=== PATIENT | male | born 1940 | race Caucasian/White ===

== ENCOUNTER → 2020-08-16 14:43 | Outpatient (BNVA) | payer OTHER, SELFPAY | PROVIDERS: Visit Provider Surgery | DX: Z01.812 Encounter for preprocedural laboratory examination (principal); Z11.52 Encounter for screening for COVID-19 | CPT/HCPCS: 87635 ==

== ENCOUNTER 2020-12-10 09:14 | Emergency (ER) | payer OTHER, SELFPAY ==
[2020-12-10 09:29] VITALS: BP 166/69; PULSE 77; RESP 15; TEMP 36.5; O2SAT 97; BMI 22.4
[2020-12-10 09:34] VITALS: O2SAT 97
--- NOTE | 2020-12-10 09:46 | W.ED.BACK ---
HPI - Back Pain/Injury General: Chief Complaint: Back Pain/Injury Stated Complaint: back pain Time Seen by Provider: 12/10/20 09:15 Source: patient Mode of arrival: ambulatory Limitations: no limitations History of Present Illness: HPI Narrative: Patient is a nice 80-year-old gentleman who presents to ED today with a complaint of lower back pain. Patient tells me pain initially started approximately 3 days ago. He has not had any known injury or trauma to his back. He states he had fairly significant back pain over the weekend. He states also over the weekend he felt very achy. He states when he went to dialysis yesterday they reported a fever of 100.8-101.0. He states today the body aches have improved and he is afebrile. He also states his back pain today is not as significant as it was over the weekend (rates at a 3/10). [facility] to rule out pyelonephritis, UTI, nephrolithiasis. Patient states pain does not radiate into his lower extremities. Pain is somewhat worse with movement. No chest pain, SOB, abdominal pain. Did have a few episodes of diarrhea over the weekend. MD elicited complaint: back pain Onset (ago): day(s) Timing: constant and improved Severity: mild Pain scale (0-10): 3 Location: lumbar spine Radiation: none Exacerbating factors: none Relieving factors: none Associated symptoms: Reports fever(s) (yesterday; none today); Deny abdominal pain, difficulty walking, dysuria, nausea, urinary urgency or vomiting Work related injury: No Review of Systems Const: Reports: fever(s) (yesterday; none today), body aches (improved from over the weekend) and malaise (improved from over the weekend); Denies: change in appetite or change in weight Eyes: Denies: change in vision, blurry vision, photophobia, floaters or seeing flashes ENMT: Denies: throat pain, odynophagia, nasal discharge or nasal congestion Card: Denies: chest pain or palpitations Resp: Denies: dyspnea, productive cough, non-productive cough or chest congestion GI: Reports: diarrhea (reports a few episodes 1-2 days ago); Denies: abdominal pain, nausea, vomiting or hematochezia : Denies: flank pain, difficulty urinating, dysuria, urinary frequency, urinary urgency or urinary hesitancy Musc: Reports: back pain; Denies: neck pain, extremity pain, extremity swelling, joint pain, joint swelling, joint stiffness or limited range of motion Skin/Breast: Denies: rash Neuro: Denies: headache(s), numbness in extremities, weakness in extremities, sensory changes or difficulty walking PFSH ED PFSH: Medical History (Updated 12/10/20 @ 12:59 by DELTA Gomez) Chronic gout ESRD (end stage renal disease) History of TIA (transient ischemic attack) Hyperlipidemia Hypertension Vitamin B12 deficiency (dietary) anemia Vitamin D deficiency Surgical History (Updated 10/08/20 @ 16:40 by Alex Arciniega MD) History of left knee surgery History of right knee surgery S/P hemodialysis catheter insertion Family History (Updated 10/08/20 @ 16:31 by SUMANTH Cha) Denies family history of Anesthesia complication Bleeding disorder Social History (Updated 10/08/20 @ 16:31 by SUMANTH Cha) Smoking and tobacco status: former smoker Alcohol intake: never Physical Exam Const: COMMON NORMALS: no acute distress, average body habitus, patient oriented x3, no limitations, healthy appearing, alert and well nourished HENMT: COMMON NORMALS: normocephalic and atraumatic HEAD & SCALP: normocephalic and atraumatic Resp: COMMON NORMALS: normal respiratory effort and clear to auscultation bilaterally AUSCULTATION: clear to auscultation bilaterally Cardio: COMMON NORMALS: regular rate and regular rhythm RATE: regular rate RHYTHM: regular rhythm GI: COMMON NORMALS: Normal to inspection, nondistended, normoactive bowel sounds present, Soft to palpation, non-tender, No hepatosplenomegaly present and no masses PALPATION: Yes Soft to palpation and Yes No hepatosplenomegaly present : COMMON NORMALS: Yes no CVA tenderness BLADDER/KIDNEY EXAM: Yes no CVA tenderness Back/Pelvis: COMMON NORMALS: no CVA tenderness BACK IMAGE (MALE): 1. pain across lower back; mildly reproduced by palpation; did not seem to have any midline bony tenderness Extremity: COMMON NORMALS: normal to inspection and full ROM GENERAL: Yes normal exam except as noted Neuro: ZAIDA COMA SCALE: document GCS findings [place] coma scale eye opening: Spontaneous Zaida coma scale verbal response: Orientated [place] coma scale motor response: Obey commands [place] coma scale total score: 15 COMMON NORMALS: patient oriented x3, CN's II-XII intact bilaterally, moves all extremities, no focal motor deficits, no sensory deficits noted and gait normal SENSORIUM/ORIENTATION: Yes alert Skin: COMMON NORMALS: no rashes or lesions noted GENERAL SKIN EXAM: no rashes or lesions noted Course Vital Signs: Vital signs: Vital Signs Temperature 97.7 F 12/10/20 09:29 Pulse Rate 59 L 12/10/20 10:10 Respiratory Rate 18 12/10/20 10:10 Blood Pressure 179/66 12/10/20 10:10 Pulse Oximetry 94 12/10/20 10:10 MDM - Back Pain/Injury MDM Narrative: Medical decision making narrative: Given patient's body aches, fever, and diarrhea over the weekend COVID-19 testing was obtained and patient was found to be positive. All of these symptoms are improving and clinically patient looks well. He has zero respiratory complaints. Vitals are normal today. CXR normal. He certainly has risk factors for this to progress so I spoke to him about BAM infusion today or we could get this scheduled for tomorrow/ but patient refuses this. Quarantine instructions were given. UA did look suspicious for infection with blood, 1+ leuks, 15-[address] imaging obtained which does shows bilateral perinephric stranding. Radiologist commented on some low and high attenuation lesions in his kidneys. I did speak to Dr. Barrett who stated these were not kidney abscesses not that clinically I had a concern for this as patient is non-ill and nontoxic appearing along with stable vital signs and no white count. Patient's BUN/Cr today was 28/4.0. [facility] which showed a BUN/Cr of 21/4.7 in 07/2020. Patient is receiving dialysis MWF. Discussed contacting them for their COVID patient protocols. Lab Data: Labs: Lab Results 12/10/20 12/10/20 12/10/20 Range/Units 09:55 10:05 10:05 WBC 5.4 (4.0-10.0) 10^3/ uL RBC 4.07 L (4.1-5.3) 10^6/u L Hgb 13.0 (11.7-16.6) g/dL Hct 41.0 L (42.0-52.0) % MCV 100.7 H (80-94) fL MCH 31.9 (28.0-34.0) pg MCHC 31.7 (30.0-36.0) g/dL RDW 15.1 (12.1-15.1) % Plt Count 165 (130-400) 10^3/c mm MPV 10.4 (7.4-10.4) fL Neut % (Auto) 53.4 % Lymph % (Auto) 27.4 % [place] % (Auto) 17.5 % Eos % (Auto) 0.6 % Baso % (Auto) 0.4 % Neut # (Auto) 2.90 (1.8-7.7) 10^3/u L Lymph # (Auto) 1.5 (0.8-4.8) 10^3/u L [place] # (Auto) 1.0 H (0.2-0.9) 10^3/u L Eos # (Auto) 0.0 (0.0-0.8) 10^3/u L Baso # (Auto) 0.0 (0.0-0.1) 10^3/u L Nucleated RBC % (a uto) 0 % Nucleated RBCs # 0.0 /100WBC Sodium 139 (136-145) mmol/L Potassium 3.6 (3.5-5.1) mmol/L Chloride 97 L (98-107) mmol/L Carbon Dioxide 29 (22-29) mmol/L Anion Gap 16.6 (5-19) BUN 28 H (8-23) mg/dL Creatinine 4.0 H (0.7-1.2) mg/dL GFR Calculation Not Reportable Glucose 80 (65-115) mg/dL Calculated Osmolal ity 292 (285-295) mOsm/k g Calcium 8.4 L (8.5-10.5) mg/dL Total Bilirubin 0.7 (0.15-1.2) mg/dL AST 23 (0-40) U/L ALT 14 (0-41) U/L Alkaline Phosphata se 181 H (40-130) IU/L Total Protein 7.7 (6.6-8.7) g/dL Albumin 4.3 (3.5-5.2) g/dL Globulin 3.4 (1.3-4.6) g/dL Urine Color Yellow (Yellow) Urine Appearance Cloudy (CLEAR) Urine pH 9 H (5-7) Ur Specific Gravit y 1.015 (1.005-1.030) Urine Protein 2+ H (Negative) Urine Glucose (UA) Norm (Normal) Urine Ketones Negative (Negative) Urine Blood 2+ H (Negative) Urine Nitrate Negative (Negative) Urine Bilirubin Neg (Negative) Prot Sulfosalicyli c Acd Positive (Negative) Urine Urobilinogen Norm (Negative) mg/dL Ur Leukocyte Cara ase 1+ H (Negative) Urine RBC 0-4 H (0-2) /hpf Urine WBC 15-25 H (0-5) /hpf Ur Squamous Epith Cells 0-4 H (0-5) /hpf Amorphous Sediment Not Reportable Urine Bacteria Trace (NONE) /hpf SARS-CoV-2 Ag (Rap id) (Negative) 12/10/20 Range/Units 10:30 WBC (4.0-10.0) 10^3/ uL RBC (4.1-5.3) 10^6/u L Hgb (11.7-16.6) g/dL Hct (42.0-52.0) % MCV (80-94) fL MCH (28.0-34.0) pg MCHC (30.0-36.0) g/dL RDW (12.1-15.1) % Plt Count (130-400) 10^3/c mm MPV (7.4-10.4) fL Neut % (Auto) % Lymph % (Auto) % [place] % (Auto) % Eos % (Auto) % Baso % (Auto) % Neut # (Auto) (1.8-7.7) 10^3/u L Lymph # (Auto) (0.8-4.8) 10^3/u L [place] # (Auto) (0.2-0.9) 10^3/u L Eos # (Auto) (0.0-0.8) 10^3/u L Baso # (Auto) (0.0-0.1) 10^3/u L Nucleated RBC % (a uto) % Nucleated RBCs # /100WBC Sodium (136-145) mmol/L Potassium (3.5-5.1) mmol/L Chloride (98-107) mmol/L Carbon Dioxide (22-29) mmol/L Anion Gap (5-19) BUN (8-23) mg/dL Creatinine (0.7-1.2) mg/dL GFR Calculation Glucose (65-115) mg/dL Calculated Osmolal ity (285-295) mOsm/k g Calcium (8.5-10.5) mg/dL Total Bilirubin (0.15-1.2) mg/dL AST (0-40) U/L ALT (0-41) U/L Alkaline Phosphata se (40-130) IU/L Total Protein (6.6-8.7) g/dL Albumin (3.5-5.2) g/dL Globulin (1.3-4.6) g/dL Urine Color (Yellow) Urine Appearance (CLEAR) Urine pH (5-7) Ur Specific Gravit y (1.005-1.030) Urine Protein (Negative) Urine Glucose (UA) (Normal) Urine Ketones (Negative) Urine Blood (Negative) Urine Nitrate (Negative) Urine Bilirubin (Negative) Prot Sulfosalicyli c Acd (Negative) Urine Urobilinogen (Negative) mg/dL Ur Leukocyte Cara ase (Negative) Urine RBC (0-2) /hpf Urine WBC (0-5) /hpf Ur Squamous Epith Cells (0-5) /hpf Amorphous Sediment Urine Bacteria (NONE) /hpf SARS-CoV-2 Ag (Rap id) Positive H (Negative) Imaging Data^: CXR: Radiologist's impression: [address] [id number] ReportSigned Patient: Ralph Patel #: [id number]: [id number]#:[id number]/Sex: 80 / MADM Date: 12/10/20Loc: ERRoom/Bed:Attending Dr: Ordering Provider/Ordering MD: Mandy Do Date of Service: 12/10/20 Procedure(s): XR chest 1V portable [id number] Accession Number(s): [id number] Report Number: [id number] PROCEDURE INFORMATION: Exam: XR Chest Exam date and time: 12/10/2020 11:23 AM Age: 80 years old Clinical indication: Condition or disease; Other: Covid TECHNIQUE: Imaging protocol: XR of the chest. Views: 1 view. COMPARISON: No relevant prior studies available. FINDINGS: Lungs: There is chronic fibrosis and multiple benign calcified granulomas in the right upper lobe. No acute infiltrates are seen. Pleural spaces: Unremarkable. No pleural effusion. No pneumothorax. Heart/Mediastinum: Heart is not enlarged. There is calcification of the aorta. Bones/joints: Unremarkable. XR/XR chest 1V portable [id number] IMPRESSION: Benign calcified granulomas disease. No acute abnormality. Dictated By:Janice Fajardo By:Janice Fajardo Date/Time:12/10/20 1226DD/ 122 CT Abd/Pel: Radiologist's impression: [address] [place] [address] CT Scan Report Signed Patient: Fermin Patel Unit #: [id number] : [id number] Age/Sex: 80 / M ADM Date: 12/10/20 Loc: ER Room/Bed: Attending Dr: Ordering Provider/Ordering MD: Mandy Do Date of Service: 12/10/20 Procedure(s): CT kidney stone 02099 Accession Number(s): [id number] Report Number: [id number] WS: [id number] CT ABDOMEN AND PELVIS NONCONTRAST HISTORY: lower back/flank pains TECHNIQUE: Imaging performed through the abdomen and pelvis. Coronal and sagittal reformats are submitted. All CT scans at [facility] use at least one of these dose optimization techniques: automated exposure control; mA and/or kV adjustment per patient size (includes targeted exams where dose is matched to clinical indication); or iterative reconstruction. DLP: 851.38 mGy.cm COMPARISON: None available. Lower thorax: Chronic emphysema at the bases. Mild cardiomegaly. Small hiatal hernia. Liver: Granulomata. Normal size liver. No bile duct dilatation. Gallbladder: Normal gallbladder. Pancreas: Normal size and attenuation. Normal pancreatic duct. No pancreatitis or mass. Spleen: Normal. Adrenal glands: Normal. No mass. Right kidney: Moderate atrophy of the RIGHT kidney with cortical thinning. Multiple low- attenuation, ill-defined masses within the renal cortex. Additional perinephric stranding. Additional nodule of increased density within the lower pole. No hydronephrosis. Left kidney: There are multiple hyperdense nodules and a few low-attenuation nodules throughout the kidney. These cannot be further characterized. Perinephric stranding with no hydronephrosis. Aorta: Severe calcified plaque within the aorta and mesenteric arteries. Heavy calcification continues into the LEFT iliac artery. There is complete occlusion of the lumen by calcification. Severe atherosclerosis of the internal and external iliac arteries. There is a bifemoral bypass graft. No free fluid, intraperitoneal air or significant lymphadenopathy. GI tract: Normal appendix. No GI tract obstruction. Numerous diverticula noted but no acute inflammation. A loop of sigmoid colon extends into the LEFT inguinal canal. This hernia is just medial to the femoral bypass graft. Abdominal wall: Small umbilical hernia contains fat only. Pelvis: Postoperative changes of bifemoral bypass graft. No free fluid in the pelvis. There is mild stranding in the fat surrounding the prostate gland. Osseous structures: Degenerative disc disease and facet arthritis. CT/CT kidney stone [id number] IMPRESSION: 1. No renal obstruction. 2. Mild bilateral perinephric stranding, correlate for possible urinary tract infection. 3. Mixture of low attenuation and high attenuation lesions within each kidney cannot be further characterized on noncontrast evaluation. 4. Moderate atrophy of the RIGHT kidney. 5. Severe atherosclerosis aorta and prior bifemoral bypass graft. 6. Sigmoid diverticulosis without acute diverticulitis. 7. Loop of colon extends into the LEFT inguinal region but there is no obstruction. Dictated By: Joyce Barrett DO Signed By: Joyce Barrett DO Signed Date/Time: 12/10/20 1230 DD/ 1220 Discharge Plan Discharge Patient Disposition: Home Clinical Impression: COVID-19, Acute pyelonephritis Chronic kidney disease Qualifiers: Chronic kidney disease stage: on chronic dialysis Qualified Code(s): N18.6 - End stage renal disease Condition: Stable Prescriptions: New cefdinir 300 mg capsule 300 mg PO BID 10 Days Qty: 20 RF: 0 No Action allopurinol 100 mg tablet 100 mg PO DAILY RF: 0 amlodipine 10 mg tablet 10 mg PO DAILY RF: 0 aspirin 81 mg tablet,delayed release (DR/EC) 81 mg PO DAILY RF: 0 atorvastatin 20 mg tablet 20 mg PO DAILY RF: 0 calcium acetate 667 mg tablet 667 mg PO TID RF: 0 carvedilol 12.5 mg tablet 12.5 mg PO BID RF: 0 cholecalciferol (vitamin D3) 25 mcg (1,000 unit) capsule 25 mcg PO DAILY RF: 0 B eooviun-N-lglcj acid-Zn Tablet PO RF: 0 sulfamethoxazole-trimethoprim 800-160 mg tablet 1 tab PO Q12H RF: 0 Discharge Orders: Discharge ED (Routine); Ordered 12/10/20 Ordered By: Mandy Do Patient Instructions: Opioid Safety Activity Restrictions/Additional Instructions: As we discussed you need to quarantine for 10 days starting out from symptom onset. You are cleared to return after 10 days if symptoms are improving and you are fever free. You need to return to the emergency department or contact your primary care provider for shortness of breath, difficulty breathing, chest pain, palpitations, uncontrollable fevers, generally feeling ill or unwell, or any other concerns you may have. As we discussed you need to continue your dialysis MWF. Please contact your company to receive instructions on their COVID protocols. I have offered you the monoclonal antibody IV infusion for treatment of COVID in hopes that this would prevent worsening symptoms however you have refused. You need to fill antibiotics and get started on them immediately. You need to return to the emergency department for worsening flank or back pain, fevers, repetitive episodes of vomiting, inability to hold down your antibiotics, or any other concerns you may have. Coding Level of Care Code ED Nurse Practitioner Manager for [facility] Exam Comprehensive
[2020-12-10 10:10] VITALS: BP 179/66; PULSE 59; RESP 18; O2SAT 94
[2020-12-10 10:13] LABS: Basophils % 0.4 %; Eosinophils % 0.6 %; Lymphocytes # 1.5 10^3/uL (0.8-4.8); Lymphocytes % 27.4 %; Mean Corpuscular HGB Conc 31.7 g/dL (30.0-36.0); Mean Corpuscular Hemoglobin 31.9 pg (28.0-34.0); Mean Corpuscular Volume 100.7 fL (80-94); Mean Platelet Volume 10.4 fL (7.4-10.4); Monocytes % 17.5 %; Neutrophils % 53.4 %; Nucleated Red Blood Cells % 0 %; Platelet Count 165 10^3/cmm (130-400); Red Blood Count 4.07 10^6/uL (4.1-5.3); Red Cell Distribution Width 15.1 % (12.1-15.1); White Blood Count 5.4 10^3/uL (4.0-10.0)
[2020-12-10 10:22] LABS: Add Urine Microscopic? YES; Bilirubin Urine Neg (Negative); Blood Urine 2+ (Negative); Glucose Urine UA Norm (Normal); Ketones Urine Negative (Negative); Leukocyte Esterase Urine 1+ (Negative); Nitrate Urine Negative (Negative); Protein Urine 2+ (Negative); RBC Urine 0-4 /hpf (0-2); Specific Gravity, Urine 1.015 (1.005-1.030); Sulfosalicylic Acid Urine Positive (Negative); Urine Appearance Cloudy (CLEAR); Urine Color Yellow (Yellow); Urobilinogen Urine Norm (Negative); pH Urine 9 (5-7)
[2020-12-10 10:23] LABS: Bacteria Urine TRACE /hpf; Squamous Epithelial Cell Urine 0-4 /hpf (0-5); WBC Urine 15-25 /hpf (0-5)
--- NOTE | 2020-12-10 10:25 | CT_ITS ---
WS: [id number] CT ABDOMEN AND PELVIS NONCONTRAST HISTORY: lower back/flank pains TECHNIQUE: Imaging performed through the abdomen and pelvis. Coronal and sagittal reformats are submi tted. All CT scans at [facility] use at least one of these dose optimization techniques: automated exposure control; mA and/or kV adjustment per patient size (includes targeted exams where d ose is matched to clinical indication); or iterative reconstruction. DLP: 851.38 mGy.cm COMPARISON: None available. Lower thorax: Chronic emphysema at the bases. Mild cardiomegaly. Small hiatal hernia. Liver: Granulomata. Normal size liver. No bile duct dilatation. Gallbladder: Normal gallbladder. Pancreas: Normal size and attenuation. Normal pancreatic duct. No pancreatitis or mass. Spleen: Normal. Adrenal glands: Normal. No mass. Right kidney: Moderate atrophy of the RIGHT kidney with cortical thinning. Multiple low-attenuation, ill-defined masses within the renal cortex. Additional perinephric stranding. Additional nodule of in creased density within the lower pole. No hydronephrosis. Left kidney: There are multiple hyperdense nodules and a few low-attenuation nodules throughout the k idney. These cannot be further characterized. Perinephric stranding with no hydronephrosis. Aorta: Severe calcified plaque within the aorta and mesenteric arteries. Heavy calcification continue s into the LEFT iliac artery. There is complete occlusion of the lumen by calcification. Severe ather osclerosis of the internal and external iliac arteries. There is a bifemoral bypass graft. No free fluid, intraperitoneal air or significant lymphadenopathy. GI tract: Normal appendix. No GI tract obstruction. Numerous diverticula noted but no acute inflammat ion. A loop of sigmoid colon extends into the LEFT inguinal canal. This hernia is just medial to the femoral bypass graft. Abdominal wall: Small umbilical hernia contains fat only. Pelvis: Postoperative changes of bifemoral bypass graft. No free fluid in the pelvis. There is mild s tranding in the fat surrounding the prostate gland. Osseous structures: Degenerative disc disease and facet arthritis. CT/CT kidney stone [id number] IMPRESSION: 1. No renal obstruction. 2. Mild bilateral perinephric stranding, correlate for possible urinary tract infection. 3. Mixture of low attenuation and high attenuation lesions within each kidney cannot be further characterized on noncontrast evaluation. 4. Moderate atrophy of the RIGHT kidney. 5. Severe atherosclerosis aorta and prior bifemoral bypass graft. 6. Sigmoid diverticulosis without acute diverticulitis. 7. Loop of colon extends into the LEFT inguinal region but there is no obstruc tion.
[2020-12-10 10:42] LABS: Alanine Aminotransferase 14 U/L (0-41); Albumin Level 4.3 g/dL (3.5-5.2); Alkaline Phosphatase 181 IU/L (40-130); Anion Gap 16.6 (5-19); Aspartate Amino Transferase 23 U/L (0-40); Blood Urea Nitrogen 28 mg/dL (8-23); Calcium 8.4 mg/dL (8.5-10.5); Carbon Dioxide 29 mmol/L (22-29); Chloride 97 mmol/L (98-107); Globulin 3.4 g/dL (1.3-4.6); Glucose 80 mg/dL (65-115); Osmolality Calculated 292 mOsm/kg (285-295); Potassium 3.6 mmol/L (3.5-5.1); Sodium 139 mmol/L (136-145); Total Bilirubin 0.7 mg/dL (0.15-1.2); Total Protein 7.7 g/dL (6.6-8.7)
[2020-12-10 11:03] LABS: SARS Covid-2 Antigen Positive (Negative)
--- NOTE | 2020-12-10 11:23 | XRR_ITS ---
PROCEDURE INFORMATION: Exam: XR Chest Exam date and time: 12/10/2020 11:23 AM Age: 80 years old Clinical indication: Condition or disease; Other: Covid TECHNIQUE: Imaging protocol: XR of the chest. Views: 1 view. COMPARISON: No relevant prior studies available. FINDINGS: Lungs: There is chronic fibrosis and multiple benign calcified granulomas in the right upper lobe. No acute infiltrates are seen. Pleural spaces: Unremarkable. No pleural effusion. No pneumothorax. Heart/Mediastinum: Heart is not enlarged. There is calcification of the aorta. Bones/joints: Unremarkable. XR/XR chest 1V portable [id number] IMPRESSION: Benign calcified granulomas disease. No acute abnormality.
[2020-12-10 13:05] VITALS: BP 181/85; PULSE 66; RESP 16; TEMP 36.6; O2SAT 99
[2020-12-10] MEDS: cefTRIAXone 1,000 MG in lidocaine 1% 2.1 ML 1 MG IM (13:08)
== END 2020-12-10 13:20 | disposition home or self-care (01) ==
PROVIDERS: Emergency Provider Physician Assistant
DX: U07.1 COVID-19 (principal); N10 Acute pyelonephritis; I12.0 Hypertensive chronic kidney disease with stage 5 chronic kidney disease or end stage renal disease; N18.6 End stage renal disease; E78.5 Hyperlipidemia, unspecified; Z86.73 Personal history of transient ischemic attack (TIA), and cerebral infarction without residual deficits; Z87.891 Personal history of nicotine dependence; Z79.82 Long term (current) use of aspirin
CPT/HCPCS: 36415; 71045; 74176; 80053; 81001; 85025; 87077; 87086; 87186; 87426; 96372; 99283; J0696

== ENCOUNTER 2022-05-09 18:19 | Inpatient (IN) | payer OTHER, SELFPAY ==
--- NOTE | 2022-05-09 18:41 | XRR_ITS ---
PROCEDURE INFORMATION: Exam: XR Chest Exam date and time: 05/09/2022 7:56 PM Age: 82 years old Clinical indication: Shortness of breath; Additional info: SOB TECHNIQUE: Imaging protocol: Radiologic exam of the chest. Views: 1 view. COMPARISON: CR XR chest 1V portable [id number] 12/10/2020 11:32 AM FINDINGS: Lungs: Vascular congestion. Interstitial opacities in the central and lower lung zones. Small airspace opacities in the peripheral left lung base. Stable chronic scarring with calcifications in the right upper lobe. Pleural spaces: Probable small pleural effusions. No pneumothorax. Heart/Mediastinum: The heart size is upper normal. Bones/joints: Unremarkable. XR/XR chest 1V portable [id number] IMPRESSION: 1. Mild congestive heart failure pattern. 2. Probable small pleural effusions.
[2022-05-09 18:46] VITALS: BP 149/85; PULSE 93; RESP 40; O2SAT 56
[2022-05-09] MEDS: ipratropium-albuterol 3 mL Neb INHALATION (18:48)
[2022-05-09 18:49] VITALS: PULSE 91; RESP 33; O2SAT 94
[2022-05-09 18:52] VITALS: PULSE 92; RESP 30; O2SAT 95
[2022-05-09 18:54] LABS: Basophils # 0.1 10^3/uL (0.0-0.1); Basophils % 0.4 %; Eosinophils % 0.1 %; Hematocrit 35.5 % (42.0-52.0); Hemoglobin 10.9 g/dL (11.7-16.6); Lymphocytes # 2.5 10^3/uL (0.8-4.8); Lymphocytes % 15.7 %; Mean Corpuscular HGB Conc 30.7 g/dL (30.0-36.0); Mean Corpuscular Volume 104.1 fl (80-94); Mean Platelet Volume 10.6 fL (7.4-10.4); Monocytes # 2.2 10^3/uL (0.2-0.9); Monocytes % 13.3 %; Neutrophils % 69.8 %; Nucleated Red Blood Cells % 0 %; Platelet Count 201 10^3/cmm (130-400); Red Blood Count 3.41 10^6/uL (4.1-5.3); White Blood Count 16.2 10^3/uL (4.0-10.0)
[2022-05-09] MEDS: magnesium sulfate premix 2 GM/50 ML PIGGYBACK IV (18:55)
[2022-05-09 18:59] LABS: ABG PCO2 50.7 mmHg (35-45); ABG PH Result 7.35 (7.35-7.45); Base Excess ABG 1.7 mmol/L (-2.0-2.0); Blood Gas Allen Test Pos; Blood Gas Operator Identificat glc; Blood Gas Sample Site Radial, right; Blood Gas Sample Type Arterial; Carboxyhemoglobin 1.9 %THgb (0.4-20.1); Methemoglobin 1.4 % (0.4-1.5); Oxygen Device NRB; Total Hemoglobin 11.1 g/dL (14-18)
[2022-05-09] MEDS: FUROsemide 10 mg/mL SDV 4mL 40 MG IVP (19:02)
[2022-05-09 19:04] LABS: INR 1.14 (0.8-1.2)
--- NOTE | 2022-05-09 19:09 | ECG_ITS ---
[facility] Test Date: 2022-05-09 Pat Name: Fermin Patel Department: Room: 101 Gender: Male Sales Assistant: : 1940 Requested By: Anthony Forrest Order Number: [id number] Moraima MD: Jovita Infante M.D. Measurements Intervals Anita Rate: 82 P: 30 NV: 200 QRS: 52 QRSD: 161 T: 25 QT: 426 QTc: 498 Interpretive Statements SINUS RHYTHM RIGHT BUNDLE BRANCH BLOCK [120+ ms QRS DURATION, UPRIGHT V1, 40+ ms S IN I/aVL/V4/V5/V6] INTERPRETATION BASED ON A DEFAULT AGE OF 40 YEARS No previous ECG available for comparison Electronically Signed On 05-11-2022 13:42:14 INSTRUMENT AND CONTROL TECHNICIAN by Jovita Infante M.D. [id number]
--- NOTE | 2022-05-09 19:12 | ED_ITS ---
HPI - SOB/Dyspnea General: Chief Complaint: Shortness of Breath/Dyspnea Stated Complaint: Weakness Time Seen by Provider: 05/09/22 18:36 History of Present Illness: HPI Narrative: 82-year-old male presents emergency department chief complaint of acute respirat ory distress. Patient is a dialysis patient and end-stage renal disease has dialysis earlier today he has had no recent weight gain in which he dialysis treatment was the full duration today patient presents with family due to progressive shortness of breath difficulty breathing is been getting worse the last several hours. The patient has no other prior history of atherosclerotic cardiovascular disease or other associated symptoms Associated symptoms: Deny abdominal pain, chest pain, extremity pain, fever(s), nausea, palpitations or vomiting Review of Systems General: Reports: 10 or more systems reviewed and unremarkable except in HPI and below Const: Denies: fever(s), chills, fatigue or malaise Eyes: Denies: change in vision or blurry vision Card: Denies: chest pain or palpitations Resp: Reports: dyspnea, productive cough, non-productive cough and wheezing GI: Denies: abdominal pain, nausea or vomiting : Denies: flank pain Musc: Denies: extremity pain or extremity swelling Skin/Breast: Denies: rash or pruritus Neuro: Denies: headache(s) Psych: Denies: anxiety or depression Jose/Lymph: Denies: easy bleeding All/Imm: Denies: urticaria, throat swelling or facial swelling PFSH ED PFSH: Medical History Chronic gout ESRD (end stage renal disease) History of TIA (transient ischemic attack) Hyperlipidemia Hypertension Vitamin B12 deficiency (dietary) anemia Vitamin D deficiency Surgical History History of left knee surgery History of right knee surgery S/P hemodialysis catheter insertion Family History Denies family history of Anesthesia complication Bleeding disorder Social History Smoking and tobacco status: former smoker Alcohol intake: never Physical Exam Const: OTHER: Patient appears to be in acute respiratory distress and very tachypneic diminished breath sounds appreciated bilaterally with moderate crackles and wheezing appreciated HENMT: COMMON NORMALS: normocephalic and atraumatic HEAD & SCALP: normocephalic and atraumatic Eye: COMMON NORMALS: Equal, round and reactive pupils present and EOMs intact bilaterally PUPIL: Yes Equal, round and reactive pupils present Neck/C-Spine: COMMON NORMALS: full ROM and supple Lymph: LYMPHATIC: no lymphadenopathy noted Chest: COMMONS NORMALS: normal inspection of the chest and normal palpation of entire chest wall Resp: OTHER: Currently on high flow oxygen greater than 15 L via nonrebreather patient is quite tachypneic with expiratory wheezing and crackles appreciated bilaterally with respiratory splinting and noted Cardio: OTHER: Sinus tachycardia rate in the 130s appreciated on exam GI: COMMON NORMALS: Normal to inspection, nondistended, normoactive bowel sounds present, Soft to palpation and non-tender INSPECTION: Yes normal to inspection PALPATION: Yes Soft to palpation : COMMON NORMALS: Yes no CVA tenderness BLADDER/KIDNEY EXAM: Yes no CVA tenderness Back/Pelvis: COMMON NORMALS: no CVA tenderness Extremity: COMMON NORMALS: normal to inspection and full ROM Neuro: COMMON NORMALS: CN's II-XII intact bilaterally, moves all extremities and no focal motor deficits Psych: COMMON NORMALS: mental status grossly normal, Normal thought process present, cooperative and normal affect THOUGHT PROCESS: Normal thought process present Skin: COMMON NORMALS: no rashes or lesions noted GENERAL SKIN EXAM: no rashes or lesions noted OTHER: Mild mottling appreciated the skin Course Vital Signs: Vital signs: Vital Signs Pulse Rate 92 05/09/22 18:52 Respiratory Rate 30 H 05/09/22 18:52 Blood Pressure 149/85 05/09/22 18:46 Pulse Oximetry 95 05/09/22 18:52 Oxygen Delivery Me thod 05/09/22 18:52 Oxygen Flow Rate 22 05/09/22 18:52 Fraction of Inspir ed Oxygen 50 05/09/22 18:49 MDM - SOB/Dyspnea Medical Decision Making Patient appears to be acute hypoxic respiratory failure possibly due to fluid overload versus pulmonary. Immediately patient was started on BiPAP ABG was obtained prior to this that revealed that he was slightly acidotic with a pH 7.350 PCO2 of 50 PO2 165 patient was ordered neb treatments as well as steroids as well as an additional Lasix. Unclear whether or not this is purely cardiac or combination of part cardiac and pulmonary cause. We will continue to follow. Patient does have elevated troponins as well as appear to be fluid overloaded discussed patient's case with Dr. Johnson has great acceptance to the stepdown unit patient is already off of his BiPAP currently on 2 L via nasal cannula. We will continue to follow. Lab Data 05/09/22 18:37 05/09/22 18:37 Labs/Radiology: Radiology Impressions Chest X-Ray 05/09/22 18:41 IMPRESSION: 1. Mild congestive heart failure pattern. 2. Probable small pleural effusions. Laboratory Results WBC 16.2 10^3/uL (4.0-10.0) H 05/09/22 18:37 RBC 3.41 10^6/uL (4.1-5.3) L 05/09/22 18:37 Hgb 10.9 g/dL (11.7-16.6) L 05/09/22 18:37 Hct 35.5 % (42.0-52.0) L 05/09/22 18:37 MCV 104.1 fl (80-94) H 05/09/22 18:37 MCH 32.0 pg (28.0-34.0) 05/09/22 18:37 MCHC 30.7 g/dL (30.0-36.0) 05/09/22 18:37 RDW 15.0 % (12.1-15.1) 05/09/22 18:37 Plt Count 201 10^3/cmm (130-400) 05/09/22 18:37 MPV 10.6 fL (7.4-10.4) H 05/09/22 18:37 Neut % (Auto) 69.8 % 05/09/22 18:37 Lymph % (Auto) 15.7 % 05/09/22 18:37 [place] % (Auto) 13.3 % 05/09/22 18:37 Eos % (Auto) 0.1 % 05/09/22 18:37 Baso % (Auto) 0.4 % 05/09/22 18:37 Neut # (Auto) 11.30 10^3/uL (1.8-7.7) H 05/09/22 18:37 Lymph # (Auto) 2.5 10^3/uL (0.8-4.8) 05/09/22 18:37 [place] # (Auto) 2.2 10^3/uL (0.2-0.9) H 05/09/22 18:37 Eos # (Auto) 0.0 10^3/uL (0.0-0.8) 05/09/22 18:37 Baso # (Auto) 0.1 10^3/uL (0.0-0.1) 05/09/22 18:37 Nucleated RBC % (auto) 0 % 05/09/22 18:37 Nucleated RBCs # 0.0 /100WBC 05/09/22 18:37 PT 14.90 SECONDS (12.1-14.9) 05/09/22 18:37 INR 1.14 (0.8-1.2) 05/09/22 18:37 Specimen Type Arterial 05/09/22 18:47 Sample Site Radial, right 05/09/22 18:47 ABG pH 7.35 (7.35-7.45) 05/09/22 18:47 ABG pCO2 50.7 mmHg (35-45) H 05/09/22 18:47 ABG pO2 165.0 mmHg (80.0-100.0) H 05/09/22 18:47 ABG HCO3 28.0 mmol/L (22-26) H 05/09/22 18:47 ABG Base Excess 1.7 mmol/L (-2.0-2.0) 05/09/22 18:47 Abisai Test Pos 05/09/22 18:47 Hematocrit 34.0 % (42-52) L 05/09/22 18:47 Hgb O2 Saturation 95.0 % (95-100) 05/09/22 18:47 Carboxyhemoglobin 1.9 %THgb (0.4-20.1) 05/09/22 18:47 Methemoglobin 1.4 % (0.4-1.5) 05/09/22 18:47 Total Hemoglobin 11.1 g/dL (14-18) L 05/09/22 18:47 O2 Delivery Device Nrb 05/09/22 18:47 O2 Liters/Min 20.0 % 05/09/22 18:47 FiO2 100.0 % 05/09/22 18:47 Video Camera Operator ID glc 05/09/22 18:47 Sodium 129 mmol/L (136-145) L 05/09/22 18:37 Potassium 3.8 mmol/L (3.5-5.1) 05/09/22 18:37 Chloride 87 mmol/L (98-107) L 05/09/22 18:37 Carbon Dioxide 27 mmol/L (22-29) 05/09/22 18:37 Anion Gap 18.8 (5-19) 05/09/22 18:37 BUN 17 mg/dL (8-23) 05/09/22 18:37 Creatinine 3.8 mg/dL (0.7-1.2) H 05/09/22 18:37 GFR Calculation Not Reportable 05/09/22 18:37 Glucose 145 mg/dL (65-115) H 05/09/22 18:37 Calculated Osmolality 272 mOsm/kg (285-295) L 05/09/22 18:37 Calcium 9.3 mg/dL (8.5-10.5) 05/09/22 18:37 Total Bilirubin 0.9 mg/dL (0.15-1.2) 05/09/22 18:37 AST 25 U/L (0-40) 05/09/22 18:37 ALT 10 U/L (0-41) 05/09/22 18:37 Alkaline Phosphatase 92 U/L (40-130) 05/09/22 18:37 Troponin T Baseline 91 ng/L (0-15) H 05/09/22 18:37 Troponin T 120 Minute 113.9 ng/L (0-15) H 05/09/22 20:42 Delta Troponin T 22.9 ABS# (0-10) H* 05/09/22 20:42 NT-Pro-B Natriuret Pep 65691 pg/mL (0-450) H 05/09/22 18:37 Total Protein 7.8 g/dL (6.6-8.7) 05/09/22 18:37 Albumin 4.5 g/dL (3.5-5.2) 05/09/22 18:37 Globulin 3.3 g/dL (1.3-4.6) 05/09/22 18:37 Nasal Influ A H1 2008 PCR Not detected (NOT DETECT) 05/09/22 20:15 Adenovirus (PCR) Not detected (NOT DETECT) 05/09/22 20:15 C. pneumoniae DNA (PCR) Not detected (NOT DETECT) 05/09/22 20:15 Coronavirus 229E (PCR) Not detected (NOT DETECT) 05/09/22 20:15 Human Metapneumovir PCR Not detected (NOT DETECT) 05/09/22 20:15 Influenza A (H1) PCR Not detected (NOT DETECT) 05/09/22 20:15 Influenza A (H3) PCR Not detected (NOT DETECT) 05/09/22 20:15 Influenza Type A (PCR) Not detected (NOT DETECT) 05/09/22 20:15 Influenza Type B (PCR) Not detected (NOT DETECT) 05/09/22 20:15 M. pneumoniae (PCR) Not detected (NOT DETECT) 05/09/22 20:15 Parainfluenza 1 (PCR) Not detected (NOT DETECT) 05/09/22 20:15 Parainfluenza 2 (PCR) Not detected (NOT DETECT) 05/09/22 20:15 Parainfluenza 3 (PCR) Not detected (NOT DETECT) 05/09/22 20:15 Parainfluenza 4 (PCR) Not detected (NOT DETECT) 05/09/22 20:15 RSV Type A (PCR) Not detected (NOT DETECT) 05/09/22 20:15 RSV Type B (PCR) Not detected (NOT DETECT) 05/09/22 20:15 Entero/Rhino (PCR) Not detected (NOT DETECT) 05/09/22 20:15 SARS-CoV-2 (PCR) Not detected (NOT DETECT) 05/09/22 20:15 ABG Data ABG Interpretation 1: ABG results: pH 7.350 PCO2 50.7 PO2 165 Discharge Plan Discharge Patient Disposition: Admitted As Inpatient Clinical Impression: Fluid overload, Respiratory failure, Elevated troponin Condition: Stable Coding Level of Care Code ED Artificial Insemination Technician for Chg Fwd Exam Comprehensive
[2022-05-09 19:14] LABS: Troponin(5th) Baseline 91 ng/L (0-15)
[2022-05-09 19:22] LABS: Alanine Aminotransferase 10 U/L (0-41); Albumin Level 4.5 g/dL (3.5-5.2); Alkaline Phosphatase 92 U/L (40-130); Anion Gap 18.8 (5-19); Aspartate Amino Transferase 25 U/L (0-40); Blood Urea Nitrogen 17 mg/dL (8-23); Calcium 9.3 mg/dL (8.5-10.5); Carbon Dioxide 27 mmol/L (22-29); Chloride 87 mmol/L (98-107); Globulin 3.3 g/dL (1.3-4.6); Glucose 145 mg/dL (65-115); Osmolality Calculated 272 mOsm/kg (285-295); Potassium 3.8 mmol/L (3.5-5.1); Sodium 129 mmol/L (136-145); Total Bilirubin 0.9 mg/dL (0.15-1.2); Total Protein 7.8 g/dL (6.6-8.7)
--- NOTE | 2022-05-09 20:42 | ECG_ITS ---
[facility] Test Date: 2022-05-09 Pat Name: Fermin Patel Department: Room: Gender: Male Time Study Observer: : 1940 Requested By: Anthony Forrest Order Number: [id number] Moraima MD: Jovita Infante M.D. Measurements Intervals [place] Rate: 68 P: 29 MS: 198 QRS: 25 QRSD: 162 T: 9 QT: 500 QTc: 532 Interpretive Statements SINUS RHYTHM RIGHT BUNDLE BRANCH BLOCK [120+ ms QRS DURATION, UPRIGHT V1, 40+ ms S IN I/aVL/V4/V5/V6] No previous ECG available for comparison Electronically Signed On 05-11-2022 14:55:21 ASSOCIATE PROFESSOR OF PSYCHOLOGY by Jovita Infante M.D. [id number]
[2022-05-09 21:27] LABS: Troponin 5 2HR 113.9 ng/L (0-15); Troponin 5 2HR Delta 22.9 ABS# (0-10)
[2022-05-09 22:11] LABS: Adenovirus Not Detected (NOT DETECT); Chlamydia Pneumoniae Not Detected (NOT DETECT); Coronavirus 229E,HKU1,NL63,OC4 Not Detected (NOT DETECT); Human Metapneumovirus Not Detected (NOT DETECT); Human Rhinovirus/Enterovirus Not Detected (NOT DETECT); Influenza A Not Detected (NOT DETECT); Influenza A H1 Not Detected (NOT DETECT); Influenza A H1-2009 Not Detected (NOT DETECT); Influenza A H3 Not Detected (NOT DETECT); Influenza B Not Detected (NOT DETECT); Mycoplasma Pneumoniae Not Detected (NOT DETECT); Parainfluenza Virus Type 1 Not Detected (NOT DETECT); Parainfluenza Virus Type 2 Not Detected (NOT DETECT); Parainfluenza Virus Type 3 Not Detected (NOT DETECT); Parainfluenza Virus Type 4 Not Detected (NOT DETECT); Respiratory Syncytial Virus A Not Detected (NOT DETECT); Respiratory Syncytial Virus B Not Detected (NOT DETECT); SARS-COV-2 Not Detected (NOT DETECT)
--- NOTE | 2022-05-09 23:02 | PM.HP ---
Providers/Chief Complaint Admitting Physician: Carrie Johnson MD Chief Complaint: Weakness History of Present Illness Fermin Patel is a 82 year old male with past medical history of chronic gout, end-stage renal disease on dialysis Wednesday, hyperlipidemia, hypertension, B12 deficiency, vitamin D deficiency presented to the hospital today with complaints of progressive shortness of breath. He says he has been recently ill with cough, sputum production and says he was being stubborn and not seeking medical attention. He went to dialysis today and he was told to go to the hospital but he still did not come in. His sister called him and brought him to the hospital. He is not on any oxygen at home. He has been having trouble breathing. Afebrile at home. No recent ill contacts. Shortness of breath has been worsening for the last few days. He has been taking his medications as directed. Did not bring his medication list with him today. His sister will bring him in tomorrow morning. Patient goes to [place] for his medical needs. Denies any recent weight gain. On arrival to ER patient was not respiratory distress. Blood pressure 149/55 heart respiratory 30, pulse 92, placed on nonrebreather. BiPAP was obtained which showed PCO2 of 50. Patient was given DuoNeb, Solu-Medrol 125 and placed on BiPAP. He was also given Lasix 40x1. He has not urinated since being in the ER however he states that he drinks a quart of water daily and he pees the same amount as well. When seen in the ER patient was already off the BiPAP and transition down to 4 L nasal cannula. He was appearing comfortable at this time and cracking jokes. Labs significant for white count 16.2, hemoglobin 10.9, sodium 129, chloride 87, creatinine 3.8, glucose 145, baseline troponin 91, 2-hour troponin 113 with delta of 22.9. BNP 65,000. Chest x-ray showed mild congestive heart failure pattern with probable small pleural effusions bilaterally. Goals of care discussion done in the room with presence of both of his sisters. He would like to be DNR/DNI. He stated if I am let me go . Both his sisters agree. Patient states he has already paid for his cremation in advance as well and has thought about this very thoroughly. Social history: Patient does have a strong smoking history however does not smoke anymore. Never been formally diagnosed with COPD however does have a chronic cough. Medications/Allergies Home Medications Medication Instructions Recorded Confirmed Last Taken Type B btsbuqg-T-sxfqi acid-Zn tablet tab PO 10/08/20 10/08/20 Unknown History allopurinol 100 mg tablet 100 mg PO DAILY 10/08/20 10/08/20 Unknown History amlodipine 10 mg tablet 10 mg PO DAILY 10/08/20 10/08/20 Unknown History aspirin 81 mg tablet,delayed 81 mg PO DAILY 10/08/20 10/08/20 Unknown History release atorvastatin 20 mg tablet 20 mg PO DAILY 10/08/20 10/08/20 Unknown History calcium acetate 667 mg tablet 667 mg PO TID 10/08/20 10/08/20 Unknown History carvedilol 12.5 mg tablet 12.5 mg PO BID 10/08/20 10/08/20 Unknown History cholecalciferol (vitamin D3) 25 25 mcg PO DAILY 10/08/20 10/08/20 Unknown History mcg (1,000 unit) capsule sulfamethoxazole 800 1 tab PO Q12H 10/08/20 10/08/20 Unknown History mg-trimethoprim 160 mg tablet Allergies Allergy/AdvReac Type Severity Reaction Status Date / Time No Known Allergies Allergy Unverified 10/08/20 16:27 PFSH Acute PFSH: Medical History (Updated 05/10/22 @ 02:17 by Carrie Johnson MD) Chronic gout ESRD (end stage renal disease) History of TIA (transient ischemic attack) Hyperlipidemia Hypertension Vitamin B12 deficiency (dietary) anemia Vitamin D deficiency Surgical History History of left knee surgery History of right knee surgery S/P hemodialysis catheter insertion Family History Denies family history of Anesthesia complication Bleeding disorder Social History Smoking and tobacco status: former smoker Alcohol intake: never Vitals/I&O/Wt Last Vital Signs Pulse 92 05/09/22 18:52 Resp 30 H 05/09/22 18:52 BP 149/85 05/09/22 18:46 Pulse Ox 95 05/09/22 18:52 O2 Del Method 05/09/22 18:52 O2 Flow Rate 22 05/09/22 18:52 FiO2 50 05/09/22 18:49 Physical Exam Narrative: General: Alert oriented x3, patient seen sitting up in bed cracking jokes on 4 L nasal cannula at this time. HEENT: Normocephalic, atraumatic, EOMI, breathing comfortably on nasal cannula. Cardio: Regular rate rhythm, normal S1-S2, Respiratory: Rhonchi bilaterally at bases GI: Abdomen soft, nontender, nondistended, bowel sounds + Behavior: Appropriate and cooperative Extremities:no edema, no cyanosis Data 05/09/22 18:37 05/09/22 18:37 A&P Assessment and plan (1) Fluid overload: (2) Respiratory failure: (3) Elevated troponin: (4) ESRD (end stage renal disease): (5) Hypertension: (6) Hyperlipidemia: (7) Shortness of breath: (8) Pleural effusion: Plan #Acute congestive heart failure #Possible COPD exacerbation #Recent upper respiratory illness #Progressively worsening shortness of breath, acute respiratory distress on admission #End-stage renal disease, dialysis dependent Wednesday #Hyponatremia most likely secondary to fluid overload #Elevated BNP 65,000 #Leukocytosis secondary to possible stress response versus underlying infection ? Check procalcitonin ? Solu-Medrol 40 IV twice daily, IV Levaquin daily ? Check cardiac echo ? Consult nephrology. ? Elevated troponin most likely secondary to type II OK/demand ischemia. Patient has not had any chest pain. ? Check sputum gram stain culture, hemoglobin A1c, procalcitonin, TSH ? Continue Norvasc, aspirin, allopurinol, ceftriaxone, azithromycin, Coreg ? Pneumonia not ruled out. Will cover empirically with ceftriaxone azithromycin. ? We will need to confirm patient's home medications from his pharmacy. Family may bring them in tomorrow morning. ? PT OT ? Check echo ? Check respiratory viral panel ? Check MRSA nares - Consider stress test and cardiology consult. 6 hour troponin is pending at this time. EKG did not show acute ischemic changes. DNR/DNI DVT prophylaxis: Heparin SQ twice daily Attestations Medical Necessity Statement*: Patient requires greater than 2 midnight stay for management of congestive heart failure exacerbation, hyponatremia. Coding Level of Care Code Acute Manager Of Exhibitions And Collections for Eloy Pike Diagnoses Fluid overload E87.70 Respiratory failure J96.90 Elevated troponin R77.8 ESRD (end stage renal disease) N18.6 Hypertension I10 Hyperlipidemia E78.5 Shortness of breath R06.02 Pleural effusion J90
[2022-05-10] VITALS (13 sets, daily range): BP systolic 170–195; BP diastolic 66–76; PULSE 56–77; RESP 16–18; TEMP 36.3–37.2; O2SAT 94–98
--- NOTE | 2022-05-10 00:42 | ECG_ITS ---
[facility] Test Date: 2022-05-10 Pat Name: Fermin Patel Department: Room: 101 Gender: Male Roll Reclaimer: : 1940 Requested By: Anthony Forrest Order Number: [id number] Moraima MD: Jovita Infante M.D. Measurements Intervals [place] Rate: 66 P: 53 IL: 212 QRS: 49 QRSD: 169 T: 37 QT: 491 QTc: 518 Interpretive Statements SINUS RHYTHM WITH FIRST DEGREE AV BLOCK RIGHT BUNDLE BRANCH BLOCK [120+ ms QRS DURATION, UPRIGHT V1, 40+ ms S IN I/aVL/V4/V5/V6] Compared to ECG 05/09/2022 20:47:57 First degree AV block now present Electronically Signed On 05-11-2022 15:01:19 NURSES SUPERINTENDENT by Jovita Infante M.D. [id number]
[2022-05-10] MEDS: heparin 5,000 unit/mL INJ 1 mL 5000 UNIT SUBCUT ×2 (01:01→12:47)
[2022-05-10] MEDS: cefTRIAXone 1,000 MG in sodium chloride 0.9% (plus) 50 ML 100 MG IV (01:02)
[2022-05-10] MEDS: azithromycin 500 MG in sodium chloride 0.9% 250 ML 250 MG IV (01:35)
[2022-05-10 01:54] LABS: Troponin 5 6HR 116.4 ng/L (0-15); Troponin 5 6HR Delta 25.4 ng/L (0-12)
[2022-05-10 02:01] LABS: Procalcitonin 9.66 ng/mL (0-0.5); Thyroid Stimulating Hormone 2.23 uIU/mL (0.27-4.20)
[2022-05-10 03:33] LABS: Iron 16 ug/dL (59-158); Percent Saturation 9.1 % (20-50); Total Iron Binding Capacity 175 mcg/dl; Unsaturated Iron Binding 159 ug/dL (112-347)
[2022-05-10 03:47] LABS: Ferritin 2307 ng/mL (30-400)
[2022-05-10 04:08] LABS: Folate Level > 20.0 ng/mL (4.5-32.2)
--- NOTE | 2022-05-10 06:33 | P.CONIM_ITS ---
Providers/Reason For Consult Consulting Physician/Specialty*: Martha Jenkins DO, telenephrology Reason for Consult*: ESRD, pulmonary edema Requesting Physician: Carrie Johnson MD Attending Physician: Carrie Johnson MD History of Present Illness History of Present Illness Fermin Patel is a 82 year old male presented to ER after dialysis for evaluation and treatment of dyspnea. has had cough. Review of Systems Const: Reports: fatigue Resp: Reports: dyspnea and productive cough Medications/Allergies Home Medications Medication Instructions Recorded Confirmed Last Taken Type B tkvvblb-M-syfpe acid-Zn tablet tab PO 10/08/20 10/08/20 Unknown History allopurinol 100 mg tablet 100 mg PO DAILY 10/08/20 10/08/20 Unknown History amlodipine 10 mg tablet 10 mg PO DAILY 10/08/20 10/08/20 Unknown History aspirin 81 mg tablet,delayed 81 mg PO DAILY 10/08/20 10/08/20 Unknown History release atorvastatin 20 mg tablet 20 mg PO DAILY 10/08/20 10/08/20 Unknown History calcium acetate 667 mg tablet 667 mg PO TID 10/08/20 10/08/20 Unknown History carvedilol 12.5 mg tablet 12.5 mg PO BID 10/08/20 10/08/20 Unknown History cholecalciferol (vitamin D3) 25 25 mcg PO DAILY 10/08/20 10/08/20 Unknown History mcg (1,000 unit) capsule sulfamethoxazole 800 1 tab PO Q12H 10/08/20 10/08/20 Unknown History mg-trimethoprim 160 mg tablet Allergies Allergy/AdvReac Type Severity Reaction Status Date / Time No Known Allergies Allergy Unverified 10/08/20 16:27 Current Medications Generic Name Dose Route Start Last Admin Trade Name Freq PRN Reason Stop Dose Admin Heparin Sodium (Porcine) 5,000 unit 05/10/22 00:30 05/10/22 01:01 Heparin 5,000 Unit/Ml Inj 1 Ml SUBCUT 5,000 unit Q12H GUMARO Administration Azithromycin 500 mg/ Sodium 250 mls @ 250 mls/hr 05/10/22 00:30 05/10/22 02:40 Chloride IV Infused Q24H GUMARO Infusion Protocol Ceftriaxone Sodium 1,000 mg/ 50 mls @ 100 mls/hr 05/10/22 01:00 05/10/22 01:32 Sodium Chloride IV Infused Q24H GUMARO Infusion Protocol PFSH Acute PFSH: Medical History Chronic gout ESRD (end stage renal disease) History of TIA (transient ischemic attack) Hyperlipidemia Hypertension Vitamin B12 deficiency (dietary) anemia Vitamin D deficiency Surgical History History of left knee surgery History of right knee surgery S/P hemodialysis catheter insertion Family History Denies family history of Anesthesia complication Bleeding disorder Social History Smoking and tobacco status: former smoker Alcohol intake: never Vitals/I&O/Wt Last Vital Signs Temp 97.9 F 05/10/22 04:00 Pulse 61 05/10/22 06:00 Resp 18 05/10/22 04:00 BP 173/66 05/10/22 04:00 Pulse Ox 95 05/10/22 04:00 O2 Del Method 05/10/22 04:00 O2 Flow Rate 4 05/10/22 04:00 FiO2 50 05/09/22 18:49 05/09/22 05/09/22 05/10/22 14:59 22:59 06:59 Intake Total 50 / 50 300 / 350 Balance 50 / 50 300 / 350 Physical Exam Const: COMMON NORMALS: no acute distress and alert Extremity: NARRATIVE EXTREMITY EXAM: LUE AVF + thrill per RN OTHER: no edema Neuro: SENSORIUM/ORIENTATION: Yes alert Data 05/09/22 18:37 05/09/22 18:37 Other Labs: proBNP 66,000 CXR: Radiologist's impression: Lungs: Vascular congestion. Interstitial opacities in the central and lower lung zones. Small airspace opacities in the peripheral left lung base. Stable chronic scarring with calcifications in the right upper lobe. Pleural spaces: Probable small pleural effusions. No pneumothorax. Heart/Mediastinum: The heart size is upper normal. Bones/joints: Unremarkable. ABG Interpretation 1: 05/09/22 18:47 ABG pH 7.35 ABG pCO2 50.7 H ABG pO2 165.0 H ABG HCO3 28.0 H ABG Base Excess 1.7 My Interpretation: primary respiratory acidosis and metabolic alkalosis Other data: seen via telemedicine with assistance of RN at bedside. verbal consent obtained A&P Assessment and plan (1) ESRD (end stage renal disease): Plan 1. ESRD 2. Volume overload 3. Bronchitis 4. Hypervolemic hyponatremia 5. Hypertension Plan: isolated UF today, 2.5L over 3h as BP tolerates. No IVs, BPS, blood draws LUE Consult Attestations Medical Necessity Statement: see above Time Spent in Patient Care: 16 - 35 minutes Coding Level of Care Code Acute Operations Supervisor for Eloy Pike Diagnoses ESRD (end stage renal disease) N18.6
[2022-05-10 07:45] LABS: Hepatitis B Surface Antigen Non-Reactive (Nonreactive); Hepatitis C Virus Antibody Non-Reactive (Nonreactive)
[2022-05-10 08:08] LABS: Estmated Average Glucose 68
[2022-05-10] MEDS: calcium acetate 667 mg Capsule PO ×2 (09:01→21:24)
[2022-05-10] MEDS: carvedilol 12.5 mg Tablet PO ×2 (09:01→17:16)
[2022-05-10] MEDS: aspirin 81 mg EC Tablet PO (09:01)
[2022-05-10] MEDS: allopurinol 100 mg Tablet PO (09:01)
[2022-05-10] MEDS: atorvastatin 40 mg Tablet 20 MG PO (09:01)
[2022-05-10] MEDS: cyanocobalamin 1,000 mcg Tablet 1000 MCG PO (09:02)
--- NOTE | 2022-05-10 12:28 | USCV_ITS ---
Fermin Patel Age: 82 Gender: M : 1940 Exam Date: 05/10/2022 16:36 Ordering Phys: Louise Finch MD Technologist: Sánchez Curry Exam Location: [facility] – [place] Indication: nstemi BP: 199 / 66 HR: 58 Rhythm: Sinus Technical Quality: Adequate MEASUREMENTS (Male / Female) Normal Values 2D ECHO LV Diastolic Diameter PLAX 5.5 cm 4.2 - 5.9 / 3.9 - 5.3 cm LV Systolic Diameter PLAX 3.5 cm IVS Diastolic Thickness 1.0 cm 0.6 - 1.0 / 0.6 - 0.9 cm IVS Systolic Thickness 1.3 cm LVPW Diastolic Thickness 1.4 cm 0.6 - 1.0 / 0.6 - 0.9 cm LVPW Systolic Thickness 1.5 cm LVOT Diameter 2.0 cm LV Ejection Fraction 2D Teich 65.0 % LV Ejection Fraction MOD 2C 83.7 % LV Ejection Fraction 2C AL 83.4 % LA Diameter 4.3 cm Aorta at Sinotubular Diameter 2.7 cm IVC Diameter 1.5 cm M-MODE Aortic Annulus Diameter 3.4 cm LA Ao Ratio MM 1.4 MV E Point Septal Separation 1.2 cm DOPPLER AV Peak Velocity 235.0 cm/s LVOT Peak Velocity 108.7 cm/s AV Area Cont Eq vti 1.4 cm squared AV Area Cont Eq pk 1.5 cm squared MV Area PHT 5.0 cm squared Mitral E to A Ratio 1.5 MV E' Velocity 54.5 cm/s Mitral E to MV E' Ratio 13.0 Mitral E to LV E' Lateral Ratio 11.2 Mitral E to LV E' Septal Ratio 15.4 TR Peak Velocity 230.5 cm/s TR Peak Gradient 21.3 mmHg TV Peak E Velocity 79.0 cm/s FINDINGS Left Ventricle Normal left ventricular size and systolic function, EF 76 %. Mild left ventricular hypertrophy. Grade III/IV diastolic dysfunction (restrictive filling pattern), severely elevated filling pressures. No regional wall motion abnormalities. Right Ventricle The right ventricle is normal in size and function. Right Atrium The right atrium is normal in size. Left Atrium The left atrium is normal in size. Mitral Valve Thickened mitral valve. Mild mitral valve regurgitation. Aortic Valve Moderate aortic valve calcification. Mild aortic valve regurgitation. Mild aortic valve stenosis with valve area 1.5 cm squared Tricuspid Valve Trace tricuspid valve regurgitation. Estimated pulmonary peak systolic pressure was 43 mmHg Pulmonic Valve Trace pulmonary valve regurgitation. Pericardium Normal pericardium without effusion. Aorta Normal ascending aorta dimension. IVC The inferior vena cava appears normal. CONCLUSIONS Normal left ventricular size and systolic function, EF 76 %. Mild left ventricular hypertrophy. Grade III/IV diastolic dysfunction (restrictive filling pattern), severely elevated filling pressures. No significant wall motion abnormalities Thickened mitral valve. Mild mitral valve regurgitation. Moderate aortic valve calcification. Mild aortic valve regurgitation. Mild aortic valve stenosis with valve area 1.5 cm squared. Mild pulmonary hypertension.Estimated pulmonary peak systolic pressure was 43 mmHg Trace pulmonary valve regurgitation. There is no pericardial effusion. No similar previous studies are available for comparison Dr Jovita Infante MD FAC (Electronically Signed) Final Date: 11 May 2022 08:50 S
[2022-05-10] MEDS: heparin, porcine 1,000 unit/mL INJ 10 mL 1000 UNIT IV (12:47)
[2022-05-10] MEDS: NIFEdipine ER (24 hr) 30 mg Tablet 90 MG PO (16:27)
--- NOTE | 2022-05-10 17:10 | P.PN_ITS ---
Subjective Subjective: Overnight labs and H&P reviewed. Underwent hemodialysis uneventfully. Feels improved after dialysis. Blood pressure ranging systolic 180s. Medications: Reviewed: Yes Vitals/I&O/Wt Last Vital Signs Temp 98 F 05/10/22 15:42 Pulse 56 L 05/10/22 15:42 Resp 18 05/10/22 15:42 BP 182/76 05/10/22 15:42 Pulse Ox 98 05/10/22 15:42 O2 Del Method 05/10/22 15:42 O2 Flow Rate 3 05/10/22 07:54 FiO2 50 05/09/22 18:49 05/10/22 05/10/22 05/10/22 06:59 14:59 22:59 Intake Total 300 / 350 320 / 320 Balance 300 / 350 320 / 320 Weight last 48 hrs Weight 76.204 kg Physical Exam Narrative: General: No acute distress, AO x3 HEENT: PERRLA, pupils bilaterally equal and reactive, pallors not present Chest: Normal vesicular breath sounds, no added sounds, equal good air entry bilaterally CVS: S1-S2 regular, no murmurs, no tachycardia, no gallops, no rubs Abdomen: Soft, nontender, no organomegaly, bowel sounds present Neuro: No focal deficits, no facial deformity, AO x3, power 5/5 in all limbs Data 05/09/22 18:37 05/09/22 18:37 Micro: Microbiology 05/10/22 13:47 Blood Culture - Preliminary Blood SPECIMEN COLLECTED 05/10/22 13:40 Blood Culture - Preliminary Blood SPECIMEN COLLECTED A&P Assessment and plan (1) Fluid overload: Patient presenting with respiratory distress and signs of volume overload. Status post hemodialysis today which she tolerated well. (2) Respiratory failure: Acute hypoxic respiratory failure which appears to be multifactorial. Chest x-ray shows bilateral vascular congestion. Symptoms may be related to pulmonary edema, however patient does have some leukocytosis therefore additional evaluation is currently ongoing for infectious sources, possibly atypical pneumonia. He has been started on treatment with ceftriaxone and azithromycin while undergoing further evaluation. Blood culture taken today after initiation of antibiotics. Negative respiratory viral panel. (3) Elevated troponin: Likely as a result of type II PR, demand supply mismatch. Suspect that this is elevated in the setting of overall volume overload. Patient denies any chest pain. No acute ST-T wave changes on EKG. May need stress test., However will await echocardiogram first. (4) ESRD (end stage renal disease): (5) Hypertension: Resume home dose of nifedipine and carvedilol. (6) Hyperlipidemia: (7) Shortness of breath: (8) Pleural effusion: Plan DNR/DNI DVT prophylaxis: Heparin SQ twice daily Attestations Medical Necessity Statement*: Needs continued admission, hemodialysis today, leukocytosis, source evaluation, IV antibiotics. Coding Level of Care Code Acute Design Engineering Specialist for [facility] Angied Diagnoses Fluid overload E87.70 Respiratory failure J96.90 Elevated troponin R77.8 ESRD (end stage renal disease) N18.6 Hypertension I10 Hyperlipidemia E78.5 Shortness of breath R06.02 Pleural effusion J90
--- NOTE | 2022-05-10 20:52 | P.PN_ITS ---
Subjective Subjective: NO NEW COMPLAINTS Medications: Reviewed: Yes Vitals/I&O/Wt Last Vital Signs Temp 98.9 F 05/10/22 20:00 Pulse 63 05/10/22 20:47 Resp 16 05/10/22 20:00 BP 195/72 05/10/22 20:00 Pulse Ox 96 05/10/22 20:47 O2 Del Method 05/10/22 20:47 O2 Flow Rate 2 05/10/22 20:47 FiO2 50 05/09/22 18:49 05/10/22 05/10/22 05/10/22 06:59 14:59 22:59 Intake Total 300 / 350 320 / 320 Balance 300 / 350 320 / 320 Weight last 48 hrs Weight 76.204 kg Physical Exam Narrative: General: No acute distress, AO x3 HEENT: PERRLA, pupils bilaterally equal and reactive, pallors not present Chest: Normal vesicular breath sounds, no added sounds, equal good air entry bilaterally CVS: S1-S2 regular, no murmurs, no tachycardia, no gallops, no rubs Abdomen: Soft, nontender, no organomegaly, bowel sounds present Data 05/09/22 18:37 05/09/22 18:37 Micro: Microbiology 05/10/22 13:47 Blood Culture - Preliminary Blood SPECIMEN COLLECTED 05/10/22 13:40 Blood Culture - Preliminary Blood SPECIMEN COLLECTED A&P Assessment and plan (1) ESRD (end stage renal disease): 1. ESRD: s/p UF today , will continue TTS schedule 2. Volume overload : HD as above 3. Ac Bronchitis 4. Hypervolemic hyponatremia 5. Hypertension: BP controlled , continue current meds Attestations Medical Necessity Statement*: Needs continued admission, hemodialysis today, leukocytosis, source evaluation, IV antibiotics. Coding Level of Care Code Acute Material Hauler for Chg Fwd Diagnoses ESRD (end stage renal disease) N18.6
[2022-05-10 21:58] LABS: Urine Appearance Clear (CLEAR); Urine Color Yellow (Yellow)
[2022-05-10 21:59] LABS: Add Urine Microscopic? YES; Bilirubin Urine Neg (Negative); Blood Urine 2+ (Negative); Glucose Urine UA Norm (Normal); Ketones Urine Negative (Negative); Leukocyte Esterase Urine Negative (Negative); Nitrate Urine Negative (Negative); Protein Urine 3+ (Negative); Urobilinogen Urine Neg (Negative); pH Urine 8 (5-7)
[2022-05-10 22:00] LABS: Add Urine Culture? No; WBC Urine 0-4 /hpf (0-5)
[2022-05-11] VITALS (12 sets, daily range): BP systolic 139–167; BP diastolic 54–68; PULSE 52–77; RESP 13–18; TEMP 36.3–36.7; O2SAT 88–97
[2022-05-11] MEDS: heparin 5,000 unit/mL INJ 1 mL 5000 UNIT SUBCUT ×2 (01:01→13:42)
[2022-05-11] MEDS: cefTRIAXone 1,000 MG in sodium chloride 0.9% (plus) 50 ML 50 MG IV (01:01)
[2022-05-11] MEDS: azithromycin 500 MG in sodium chloride 0.9% 250 ML 250 MG IV (02:35)
[2022-05-11 04:48] LABS: Basophils % 0.1 %; Hematocrit 31.2 % (42.0-52.0); Lymphocytes % 8.1 %; Mean Corpuscular HGB Conc 32.1 g/dL (30.0-36.0); Mean Corpuscular Hemoglobin 31.9 pg (28.0-34.0); Mean Corpuscular Volume 99.7 fl (80-94); Mean Platelet Volume 11.4 fL (7.4-10.4); Monocytes # 0.7 10^3/uL (0.2-0.9); Monocytes % 5.7 %; Neutrophils # 10.19 10^3/uL (1.8-7.7); Neutrophils % 85.6 %; Nucleated Red Blood Cells % 0 %; Platelet Count 166 10^3/cmm (130-400); Red Blood Count 3.13 10^6/uL (4.1-5.3); Red Cell Distribution Width 14.5 % (12.1-15.1); White Blood Count 11.9 10^3/uL (4.0-10.0)
[2022-05-11 05:09] LABS: Alanine Aminotransferase 11 U/L (0-41); Albumin Level 3.8 g/dL (3.5-5.2); Alkaline Phosphatase 97 U/L (40-130); Anion Gap 19.6 (5-19); Aspartate Amino Transferase 21 U/L (0-40); Blood Urea Nitrogen 61 mg/dL (8-23); Calcium 9.1 mg/dL (8.5-10.5); Carbon Dioxide 25 mmol/L (22-29); Chloride 89 mmol/L (98-107); Globulin 3.2 g/dL (1.3-4.6); Glucose 246 mg/dL (65-115); Magnesium 2.8 mg/dL (1.7-2.3); Osmolality Calculated 295 mOsm/kg (285-295); Phosphorus 4.1 mg/dL (2.5-4.5); Potassium 3.6 mmol/L (3.5-5.1); Sodium 130 mmol/L (136-145); Total Bilirubin 0.3 mg/dL (0.15-1.2)
[2022-05-11] MEDS: atorvastatin 40 mg Tablet 20 MG PO (08:15)
[2022-05-11] MEDS: cyanocobalamin 1,000 mcg Tablet 1000 MCG PO (08:15)
[2022-05-11] MEDS: aspirin 81 mg EC Tablet PO (08:17)
[2022-05-11] MEDS: carvedilol 12.5 mg Tablet PO ×2 (08:18→17:46)
[2022-05-11] MEDS: NIFEdipine ER (24 hr) 30 mg Tablet 90 MG PO (08:18)
[2022-05-11] MEDS: calcium acetate 667 mg Capsule PO ×2 (08:18→14:33)
[2022-05-11] MEDS: allopurinol 100 mg Tablet PO (08:23)
--- NOTE | 2022-05-11 10:50 | P.PN_ITS ---
Subjective Subjective: no new complaints Medications: Reviewed: Yes Vitals/I&O/Wt Last Vital Signs Temp 97.7 F 05/11/22 08:50 Pulse 52 L 05/11/22 10:15 Resp 16 05/11/22 08:50 BP 153/62 05/11/22 08:50 Pulse Ox 94 05/11/22 10:15 O2 Del Method 05/11/22 10:15 O2 Flow Rate 2 05/10/22 20:47 FiO2 50 05/09/22 18:49 05/10/22 05/11/22 05/11/22 22:59 06:59 14:59 Intake Total 150 / 470 550 / 1020 Output Total 200 / 200 Balance -50 / 270 550 / 820 Weight last 48 hrs Weight 75.296 kg Weight 76.204 kg Physical Exam Narrative: General: No acute distress, HEENT: PERRLA, pupils bilaterally equal and reactive, pallors not present Chest: Normal vesicular breath sounds, no added sounds, equal good air entry bilaterally- per report CVS: S1-S2 regular, no murmurs, no tachycardia, no gallops, no rubs- per report Abdomen: Soft, nontender, no organomegaly, bowel sounds present- per report Data 05/11/22 04:36 05/11/22 04:36 Micro: Microbiology 05/10/22 13:47 Blood Culture - Preliminary Blood SPECIMEN COLLECTED 05/10/22 13:40 Blood Culture - Preliminary Blood SPECIMEN COLLECTED Other data: (1) ESRD (end stage renal disease): 1. ESRD: s/p UF yesterday , will continue TTS schedule 2. Volume overload : HD as above 3. Ac Bronchitis 4. Hypervolemic hyponatremia 5. Hypertension: BP controlled , continue current meds A&P Assessment and plan (1) ESRD (end stage renal disease): Attestations 2 Medical Necessity Statement*: Needs continued admission, hemodialysis today, leukocytosis, source evaluation, IV antibiotics. Coding Level of Care Code Acute Packing Machine Pilot Can Router for g Fwd Diagnoses ESRD (end stage renal disease) N18.6
--- NOTE | 2022-05-11 15:34 | P.PN_ITS ---
Subjective Subjective: Leukocytosis is improving today. Thus far all cultures remain negative. Patient has been afebrile. States that breathing is better after dialysis. He is scheduled for his next session tomorrow. Medications: Reviewed: Yes Vitals/I&O/Wt Last Vital Signs Temp 97.4 F L 05/11/22 15:31 Pulse 61 05/11/22 15:31 Resp 16 05/11/22 15:31 BP 162/65 05/11/22 15:31 Pulse Ox 94 05/11/22 15:31 O2 Del Method 05/11/22 15:31 O2 Flow Rate 2 05/10/22 20:47 FiO2 50 05/09/22 18:49 05/11/22 05/11/22 05/11/22 06:59 14:59 22:59 Intake Total 550 / 1020 720 / 720 Balance 550 / 820 720 / 720 Weight last 48 hrs Weight 75.296 kg Weight 76.204 kg Physical Exam Narrative: General: No acute distress, AO x3 HEENT: PERRLA, pupils bilaterally equal and reactive, pallors not present Chest: Normal vesicular breath sounds, no added sounds, equal good air entry bilaterally CVS: S1-S2 regular, no murmurs, no tachycardia, no gallops, no rubs Abdomen: Soft, nontender, no organomegaly, bowel sounds present Neuro: No focal deficits, no facial deformity, AO x3, power 5/5 in all limbs Data 05/11/22 04:36 05/11/22 04:36 Micro: Microbiology 05/10/22 13:40 Blood Culture - Preliminary Blood NEGATIVE TO DATE 05/10/22 13:47 Blood Culture - Preliminary Blood NEGATIVE TO DATE A&P Assessment and plan (1) Fluid overload: Patient presenting with respiratory distress and signs of volume overload. Status post hemodialysis today which she tolerated well. (2) Respiratory failure: Acute hypoxic respiratory failure which appears to be multifactorial. Chest x-ray shows bilateral vascular congestion. Symptoms may be related to pulmonary edema, however patient does have some leukocytosis therefore additional evaluation is currently ongoing for infectious sources, possibly atypical pneumonia. He has been started on treatment with ceftriaxone and azithromycin while undergoing further evaluation. Blood culture negative to date. Negative respiratory viral panel. If infectious work-up remains unrevealing, will likely discontinue antibiotics. (3) Elevated troponin: Likely as a result of type II MS, demand supply mismatch. Suspect that this is elevated in the setting of overall volume overload. Patient denies any chest p ain. No acute ST-T wave changes on EKG. Echocardiogram shows grade 3 diastolic dysfunction severely elevated filling pressures. Thickened mitral valve. Mild aortic valve stenosis. Patient states that he does not have any known past cardiac history. Given abnormal echo and elevated troponins we will proceed with stress test tomorrow. (4) ESRD (end stage renal disease): (5) Hypertension: Resume home dose of nifedipine and carvedilol. (6) Hyperlipidemia: (7) Shortness of breath: (8) Pleural effusion: Plan DNR/DNI DVT prophylaxis: Heparin SQ twice daily Attestations Medical Necessity Statement*: Plan for cardiac stress test tomorrow, hemodialysis tomorrow Coding Level of Care Code Acute Nuclear Process Engineer for Chg Fwd Diagnoses Fluid overload E87.70 Respiratory failure J96.90 Elevated troponin R77.8 ESRD (end stage renal disease) N18.6 Hypertension I10 Hyperlipidemia E78.5 Shortness of breath R06.02 Pleural effusion J90
--- NOTE | 2022-05-11 17:55 | PC.NURSE ---
Patient resting in bed, arrived to floor from CSU this AM with no c/o pain or discomfort, refuses to wear hospital gown and prefers street clothes. Fistula has bruit and thrill with limb alert to LUE. No wounds at this time, no new events, VSS, AAOx4, telemetry placed on patient, patient oobtc and restroom without complications. Room clean and clutter free with call light in reach. Patient scheduled to have dialysis tomorrow at [facility], this nurse called to inform of patient stay, left message with plc controls engineer staff. No needs at this time and all questions answered at this time.
--- NOTE | 2022-05-11 19:42 | PC.NURSE ---
Patient states he used to take Calcium Acetate three times a day, but the clinic recently changed it to two times a day. Patient refusing third dose of calcium acetate.
[2022-05-12] MEDS: cefTRIAXone 1,000 MG in sodium chloride 0.9% (plus) 50 ML 100 MG IV (00:15)
[2022-05-12] MEDS: heparin 5,000 unit/mL INJ 1 mL 5000 UNIT SUBCUT (00:17)
[2022-05-12] MEDS: azithromycin 500 MG in sodium chloride 0.9% 250 ML 250 MG IV (00:46)
[2022-05-12 04:00] VITALS: BP 151/63; PULSE 64; RESP 16; TEMP 36.3; O2SAT 92
[2022-05-12 05:32] VITALS: PULSE 54
[2022-05-12 05:35] LABS: Hematocrit 31.9 % (42.0-52.0); Hemoglobin 10.3 g/dL (11.7-16.6); Lymphocytes # 0.7 10^3/uL (0.8-4.8); Lymphocytes % 6.5 %; Mean Corpuscular HGB Conc 32.3 g/dL (30.0-36.0); Mean Corpuscular Hemoglobin 31.9 pg (28.0-34.0); Mean Corpuscular Volume 98.8 fl (80-94); Mean Platelet Volume 11.6 fL (7.4-10.4); Monocytes # 0.4 10^3/uL (0.2-0.9); Monocytes % 3.6 %; Neutrophils # 9.36 10^3/uL (1.8-7.7); Neutrophils % 89.3 %; Nucleated Red Blood Cells % 0 %; Platelet Count 157 10^3/cmm (130-400); Red Blood Count 3.23 10^6/uL (4.1-5.3); Red Cell Distribution Width 14.3 % (12.1-15.1); White Blood Count 10.5 10^3/uL (4.0-10.0)
[2022-05-12 06:06] LABS: Alanine Aminotransferase 11 U/L (0-41); Albumin Level 3.7 g/dL (3.5-5.2); Alkaline Phosphatase 88 U/L (40-130); Anion Gap 21.7 (5-19); Aspartate Amino Transferase 18 U/L (0-40); Calcium 9.1 mg/dL (8.5-10.5); Carbon Dioxide 23 mmol/L (22-29); Chloride 94 mmol/L (98-107); Glucose 132 mg/dL (65-115); Osmolality Calculated 307 mOsm/kg (285-295); Potassium 3.7 mmol/L (3.5-5.1); Sodium 135 mmol/L (136-145); Total Bilirubin 0.3 mg/dL (0.15-1.2); Total Protein 6.7 g/dL (6.6-8.7)
[2022-05-12 06:14] LABS: Blood Urea Nitrogen 83 mg/dL (8-23)
--- NOTE | 2022-05-12 06:43 | ECG_ITS ---
[facility] Test Date: 2022-05-12 Pat Name: Fermin Patel Department: Room: 251 Gender: Male Web Machine Tender: Cait Borrego : 1940 Requested By: Louise Finch Order Number: [id number] Valera MD: Tiarra Bundy M.D. Interpretive Statements NAME OF STUDY: LEXISCAN SESTAMIBI STRESS TEST INDICATION: Congestive Heart Failure PROCEDURE: At the baseline, the blood pressure was 158/56 mmHg with a heart rate of 54 bpm and oxygen saturation 93%. The electrocardiogram showed normal sinus rhythm with first-degree AV block, right bundle branch block.. The Lexiscan was infused over a period of 20 seconds. A total of 0.4 milligrams of Lexiscan was infused. The stress phase was continued for a total of 5 minutes. Heart rate at the end of the stress phase was 62 bpm, oxygen saturation 96% with a blood pressure of 142/51 mmHg. The EKG at the peak infusion revealed sinus rhythm with no significant ST-T wave changes. Isolated PVCs noted during Lexiscan infusion. Sestamibi was injected 20 seconds after the Lexiscan infusion. Blood pressure at the end of the recovery phase was 143/51 mmHg, oxygen saturation 95% with a heart rate of 58 beats per minute. CONCLUSION: 1. No significant EKG changes with the LexiScan infusion. 2. No LexiScan induced chest pain or cardiac arrhythmia. 3. Normal blood pressure and heart rate response. 4. Sestamibi/sestamibi perfusion scan pending; see separate report. Electronically Signed On 05-12-2022 16:52:59 HEALTH POLICY NURSE by Tiarra Bundy M.D. [id number]
[2022-05-12] MEDS: regadenoson 0.4 Mg/5 ml Syringe IVP (07:30)
[2022-05-12 08:00] VITALS: BP 143/51; PULSE 59
[2022-05-12] MEDS: cyanocobalamin 1,000 mcg Tablet 1000 MCG PO (08:51)
[2022-05-12] MEDS: NIFEdipine ER (24 hr) 30 mg Tablet 90 MG PO (08:51)
[2022-05-12] MEDS: carvedilol 12.5 mg Tablet PO ×2 (08:51→17:02)
[2022-05-12] MEDS: aspirin 81 mg EC Tablet PO (08:51)
[2022-05-12] MEDS: atorvastatin 40 mg Tablet 20 MG PO (08:52)
[2022-05-12] MEDS: calcium acetate 667 mg Capsule PO (09:46)
[2022-05-12] MEDS: allopurinol 100 mg Tablet PO (09:47)
--- NOTE | 2022-05-12 10:31 | PC.SOCIAL ---
IMM Update pg 2 of IMM updated and reviewed w/ patient. Copy provided and copy dated, initialed and placed in chart.
[2022-05-12 12:00] VITALS: BP 142/75; PULSE 54; RESP 18; TEMP 36.5; O2SAT 94
--- NOTE | 2022-05-12 12:27 | PM.PN ---
Subjective Subjective: no new complaints Medications: Reviewed: Yes Vitals/I&O/Wt Last Vital Signs Temp 97.7 F 05/12/22 12:00 Pulse 54 L 05/12/22 12:00 Resp 18 05/12/22 12:00 BP 142/75 05/12/22 12:00 Pulse Ox 94 05/12/22 12:00 O2 Del Method 05/11/22 15:31 O2 Flow Rate 2 05/10/22 20:47 FiO2 50 05/09/22 18:49 05/11/22 05/12/22 05/12/22 22:59 06:59 14:59 Intake Total 420 / 1140 300 / 1440 Balance 420 / 1140 300 / 1440 Weight last 48 hrs Weight 74.48 kg Weight 75.296 kg Data 05/12/22 04:15 05/12/22 04:15 Micro: Microbiology 05/10/22 21:37 Urine Culture - Final Urine,Clean Catch 05/10/22 13:40 Blood Culture - Preliminary Blood NEGATIVE TO DATE 05/10/22 13:47 Blood Culture - Preliminary Blood NEGATIVE TO DATE A&P Assessment and plan (1) ESRD (end stage renal disease): (1) ESRD (end stage renal disease): 1. ESRD: s/p UF yesterday? , will continue TTS schedule 2. Volume overload : HD as above 3. Ac Bronchitis 4. Hypervolemic hyponatremia 5. Hypertension: BP controlled , continue current meds Attestations Medical Necessity Statement*: per primary team Coding Level of Care Code Acute Site Reliability Engineer for g Fwd Diagnoses ESRD (end stage renal disease) N18.6
--- NOTE | 2022-05-12 15:32 | NMCV_ITS ---
NM ravi perf SPECT r/s* [id number] Fermin Patel Age: 82 Gender: M : 1940 Exam Date: 05/12/2022 06:52 Ordering Phys: Louise Finch MD Technologist: MONIE Conway Exam Location: [facility] Indications: CHEST PAIN STRESS TEST [facility] IMAGE PROTOCOL Rest/Stress 1 Lexiscan Day Radiopharmaceutical Dose (mCi) Administration Site Administered by Rest: Tc-99m 9.9 IV MONIE Cedeno Sestamibi Stress:Tc-99m 32.8 IV MONIE Cedeno Sestamibi Rest: 12-May-2022 60 Discovery 630 Stress: 12-May-2022 30 Discovery 630 0.4mg Lexiscan. Images obtained in supine and prone position. SPECT RESULTS Technical Quality: Excellent Raw Data Analysis: Normal Image Corrections: No attenuation or motion correction applied Summed Stress Score: 6 Summed Rest Score: 4 Summed Difference Score: 3 PERFUSION FINDINGS Small sized perfusion abnormality of mild severity of apical inferior, apical lateral, apical anterior and apical [place] on rest images with subtle reversibility in apical anterior wall on supine stress images and slightly improved tracer uptake on prone stress images. FUNCTIONAL RESULTS (calculated via Gated SPECT) Stress Image LV EF (%): 61 Stress EDV (mL):164 TID: 1.07 Stress ESV (mL):64 FUNCTIONAL FINDINGS: The left ventricle is normal in size. Transient Ischemia Dilatation of 1.1. There is normal left ventricular systolic function. The left ventricular ejection fraction is normal with a value of 61%. There is normal left ventricular wall thickening. IMPRESSIONS 1. Small sized perfusion abnormality of mild severity of apical inferior, apical lateral, apical anterior and apical mun[place]. 2. This may represent old myocardial infarction in left anterior descending artery territory or attenuation artifact. 3. Overall left ventricular systolic function is normal without regional wall motion abnormalities, LVEF=61%. 4. No EKG changes with Lexiscan infusion. 5. No coronary ischemia based on the study. Tiarra Bundy MD (Electronically Signed) Final Date: 12 May 2022 16:58 S
[2022-05-12 18:00] VITALS: BP 142/75; PULSE 54; RESP 18; TEMP 36.5; O2SAT 94
--- NOTE | 2022-05-12 18:37 | PM.DCS ---
Discharge Providers Date of Admission: 05/09/22 23:22 Date of Discharge: May 12, 2022 Attending Provider at Admission: Carrie Johnson MD Attending Provider at Discharge: Louise Finch MD Diagnoses at Discharge Discharge Diagnosis (1) ESRD (end stage renal disease): Status: Acute (2) Shortness of breath: Status: Acute (3) Fluid overload: Status: Acute (4) Elevated troponin: Status: Acute (5) Abnormal stress test: Status: Acute Reason for Visit Reason for Visit: Weakness Brief History: 82 year old male with past medical history of chronic gout, end-stage renal disease on dialysis Wednesday, hyperlipidemia, hypertension, B12 deficiency, vitamin D deficiency presented to the hospital today with complaints of progressive shortness of breath.? He says he has been recently ill with cough, sputum production and says he was being stubborn and not seeking medical attention.? He went to dialysis today and he was told to go to the hospital but he still did not come in.? His sister called him and brought him to the hospital.? He is not on any oxygen at home.? He has been having trouble breathing.? Afebrile at home.? No recent ill contacts. Labs significant for white count 16.2, hemoglobin 10.9, sodium 129, chloride 87, creatinine 3.8, glucose 145, baseline troponin 91, 2-hour troponin 113 with delta of 22.9.? BNP 65,000.? Chest x-ray showed mild congestive heart failure pattern with probable small pleural effusions bilaterally.?? Hospital Course Hospital Course Patient was admitted to the hospital in view of acute hypoxic respiratory failure, likely precipitated by acute pulmonary edema contributed by end-stage renal disease and diastolic heart failure. He also had leukocytosis, unclear if this was related to underlying pneumonia versus stress reaction. He received empiric antibiotic coverage with ceftriaxone and azithromycin, has been transitioned to levofloxacin at the time of discharge, to complete total 5 days. He had elevated troponins, concerning for demand ischemia, echocardiogram was obtained to evaluate for underlying heart failure. It did show grade 3 of 4 diastolic heart failure of unknown chronicity. It is likely that diastolic heart failure was contributing to his symptoms. He reported intermittent stabbing chest pain over the past 4 to 5 months during interview. Patient denied any known past history of coronary artery disease. Given abnormal echo and elevated troponins, we decided to proceed with a stress test in view of unstable angina versus recent MS. Lexiscan stress test showed small size perfusion abnormality of mild severity of apical inferior apical lateral and apical anterior [place]. 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 Overall no coronary acute ischemia based on the study. Patient is recommended to follow-up with cardiology as an outpatient for continued follow-up of heart failure and abnormal stress test. He will continue aspirin, Coreg, atorvastatin in the interim. Patient is on these medications for a past history of stroke. Referral is provided at discharge to cardiology clinic. He also underwent hemodialysis while in the hospital. After the first hemodialysis his respiratory status did improve due to relief of pulmonary edema. He will continue his sessions on Wednesday schedule. Physical Exam Narrative: General: No acute distress, AO x3 HEENT: PERRLA, pupils bilaterally equal and reactive, pallors not present Chest: Normal vesicular breath sounds, no added sounds, equal good air entry bilaterally CVS: S1-S2 regular, no murmurs, no tachycardia, no gallops, no rubs Abdomen: Soft, nontender, no organomegaly, bowel sounds present Neuro: No focal deficits, no facial deformity, AO x3, power 5/5 in all limbs Discharge Data Studies Completed and Pending Completed Studies During Hospitalization Category Date Time Status Cardiac Stress Test MIBI [Sestamibi Stress Test Request Exams 05/12/22 06:43 Completed ] Routine XR chest 1V portable [id number] Stat Exams 05/09/22 18:41 Completed NM ravi perf SPECT r/s* [id number] Routine Nuc Med 05/12/22 15:32 Completed CV. echo complete* [id number] Routine Ultrasound 05/10/22 12:28 Completed Pending at discharge Category Date Time Status Cardiac Stress Test MIBI [Sestamibi Stress Test Request Exams 05/11/22 15:32 Stop Req ] Routine Blood Culture Stat Lab 05/10/22 13:47 Results Sputum Culture and Gram Stain Stat Lab 05/10/22 00:20 Uncollected Radiology Impressions Chest X-Ray 05/09/22 18:41 IMPRESSION: 1. Mild congestive heart failure pattern. 2. Probable small pleural effusions. Laboratory Results WBC 10.5 10^3/uL (4.0-10.0) H 05/12/22 04:15 RBC 3.23 10^6/uL (4.1-5.3) L 05/12/22 04:15 Hgb 10.3 g/dL (11.7-16.6) L 05/12/22 04:15 Hct 31.9 % (42.0-52.0) L 05/12/22 04:15 MCV 98.8 fl (80-94) H 05/12/22 04:15 MCH 31.9 pg (28.0-34.0) 05/12/22 04:15 MCHC 32.3 g/dL (30.0-36.0) 05/12/22 04:15 RDW 14.3 % (12.1-15.1) 05/12/22 04:15 Plt Count 157 10^3/cmm (130-400) 05/12/22 04:15 MPV 11.6 fL (7.4-10.4) H 05/12/22 04:15 Neut % (Auto) 89.3 % 05/12/22 04:15 Lymph % (Auto) 6.5 % 05/12/22 04:15 [place] % (Auto) 3.6 % 05/12/22 04:15 Eos % (Auto) 0.0 % 05/12/22 04:15 Baso % (Auto) 0.0 % 05/12/22 04:15 Neut # (Auto) 9.36 10^3/uL (1.8-7.7) H 05/12/22 04:15 Lymph # (Auto) 0.7 10^3/uL (0.8-4.8) L 05/12/22 04:15 [place] # (Auto) 0.4 10^3/uL (0.2-0.9) 05/12/22 04:15 Eos # (Auto) 0.0 10^3/uL (0.0-0.8) 05/12/22 04:15 Baso # (Auto) 0.0 10^3/uL (0.0-0.1) 05/12/22 04:15 Nucleated RBC % (auto) 0 % 05/12/22 04:15 Nucleated RBCs # 0.0 /100WBC 05/12/22 04:15 PT 14.90 SECONDS (12.1-14.9) 05/09/22 18:37 INR 1.14 (0.8-1.2) 05/09/22 18:37 Specimen Type Arterial 05/09/22 18:47 Sample Site Radial, right 05/09/22 18:47 ABG pH 7.35 (7.35-7.45) 05/09/22 18:47 ABG pCO2 50.7 mmHg (35-45) H 05/09/22 18:47 ABG pO2 165.0 mmHg (80.0-100.0) H 05/09/22 18:47 ABG HCO3 28.0 mmol/L (22-26) H 05/09/22 18:47 ABG Base Excess 1.7 mmol/L (-2.0-2.0) 05/09/22 18:47 Abisai Test Pos 05/09/22 18:47 Hematocrit 34.0 % (42-52) L 05/09/22 18:47 Hgb O2 Saturation 95.0 % (95-100) 05/09/22 18:47 Carboxyhemoglobin 1.9 %THgb (0.4-20.1) 05/09/22 18:47 Methemoglobin 1.4 % (0.4-1.5) 05/09/22 18:47 Total Hemoglobin 11.1 g/dL (14-18) L 05/09/22 18:47 O2 Delivery Device Nrb 05/09/22 18:47 O2 Liters/Min 20.0 % 05/09/22 18:47 FiO2 100.0 % 05/09/22 18:47 Physical Plant Manager ID glc 05/09/22 18:47 Sodium 135 mmol/L (136-145) L 05/12/22 04:15 Potassium 3.7 mmol/L (3.5-5.1) 05/12/22 04:15 Chloride 94 mmol/L (98-107) L 05/12/22 04:15 Carbon Dioxide 23 mmol/L (22-29) 05/12/22 04:15 Anion Gap 21.7 (5-19) H 05/12/22 04:15 BUN 83 mg/dL (8-23) H* 05/12/22 04:15 Creatinine 6.6 mg/dL (0.7-1.2) H* 05/12/22 04:15 GFR Calculation Not Reportable 05/12/22 04:15 Glucose 132 mg/dL (65-115) H 05/12/22 04:15 Estimat Average Glucose 68 05/10/22 01:09 Hemoglobin A1c 4.0 % (4.0-6.0) 05/10/22 01:09 Calculated Osmolality 307 mOsm/kg (285-295) H 05/12/22 04:15 Lactic Acid 1.0 mmol/L (0.5-2.2) 05/10/22 01:09 Calcium 9.1 mg/dL (8.5-10.5) 05/12/22 04:15 Phosphorus 4.1 mg/dL (2.5-4.5) 05/11/22 04:36 Magnesium 2.8 mg/dL (1.7-2.3) H 05/11/22 04:36 Iron 16 ug/dL (59-158) L 05/10/22 01:09 TIBC 175 mcg/dl 05/10/22 01:09 % Saturation 9.1 % (20-50) L 05/10/22 01:09 Unsat Iron Binding 159 ug/dL (112-347) 05/10/22 01:09 Ferritin 2307 ng/mL (30-400) H 05/10/22 01:09 Total Bilirubin 0.3 mg/dL (0.15-1.2) 05/12/22 04:15 AST 18 U/L (0-40) 05/12/22 04:15 ALT 11 U/L (0-41) 05/12/22 04:15 Alkaline Phosphatase 88 U/L (40-130) 05/12/22 04:15 Troponin T Baseline 91 ng/L (0-15) H 05/09/22 18:37 Troponin T 120 Minute 113.9 ng/L (0-15) H 05/09/22 20:42 Delta Troponin T 22.9 ABS# (0-10) H* 05/09/22 20:42 Troponin T Hi Sens 6Hr 116.4 ng/L (0-15) H 05/10/22 01:09 Troponin T Hi Sens 6Hr Delta 25.4 ng/L (0-12) H* 05/10/22 01:09 NT-Pro-B Natriuret Pep 78887 pg/mL (0-450) H 05/09/22 18:37 Total Protein 6.7 g/dL (6.6-8.7) 05/12/22 04:15 Albumin 3.7 g/dL (3.5-5.2) 05/12/22 04:15 Globulin 3.0 g/dL (1.3-4.6) 05/12/22 04:15 Folate > 20.0 ng/mL (4.5-32.2) 05/10/22 01:09 Procalcitonin 9.66 ng/mL (0-0.5) H 05/10/22 01:09 TSH 2.23 uIU/mL (0.27-4.20) 05/10/22 01:09 Urine Color Yellow (Yellow) 05/10/22 21:37 Urine Appearance Clear (CLEAR) 05/10/22 21:37 Urine pH 8 (5-7) H 05/10/22 21:37 Ur Specific [place] 1.010 (1.005-1.030) 05/10/22 21:37 Urine Protein 3+ (Negative) H 05/10/22 21:37 Urine Glucose (UA) Norm (Normal) 05/10/22 21:37 Urine Ketones Negative (Negative) 05/10/22 21:37 Urine Blood 2+ (Negative) H 05/10/22 21:37 Urine Nitrate Negative (Negative) 05/10/22 21:37 Urine Bilirubin Neg (Negative) 05/10/22 21:37 Urine Urobilinogen Neg mg/dL (Negative) 05/10/22 21:37 Ur Leukocyte Esterase Negative (Negative) 05/10/22 21:37 Urine RBC None /hpf (0-2) 05/10/22 21:37 Urine WBC 0-4 /hpf (0-5) H 05/10/22 21:37 Ur Squamous Epith Cells 10-15 /hpf (0-5) H 05/10/22 21:37 Amorphous Sediment Not Reportable 05/10/22 21:37 Urine Bacteria None /hpf (NONE) 05/10/22 21:37 Nasal Influ A H1 2008 PCR Not detected (NOT DETECT) 05/09/22 20:15 Adenovirus (PCR) Not detected (NOT DETECT) 05/09/22 20:15 C. pneumoniae DNA (PCR) Not detected (NOT DETECT) 05/09/22 20:15 Coronavirus 229E (PCR) Not detected (NOT DETECT) 05/09/22 20:15 Hep Bs Antigen Non-reactive (Nonreactive) 05/10/22 01:09 Hepatitis C Antibody Non-reactive (Nonreactive) 05/10/22 01:09 Human Metapneumovir PCR Not detected (NOT DETECT) 05/09/22 20:15 Influenza A (H1) PCR Not detected (NOT DETECT) 05/09/22 20:15 Influenza A (H3) PCR Not detected (NOT DETECT) 05/09/22 20:15 Influenza Type A (PCR) Not detected (NOT DETECT) 05/09/22 20:15 Influenza Type B (PCR) Not detected (NOT DETECT) 05/09/22 20:15 M. pneumoniae (PCR) Not detected (NOT DETECT) 05/09/22 20:15 Parainfluenza 1 (PCR) Not detected (NOT DETECT) 05/09/22 20:15 Parainfluenza 2 (PCR) Not detected (NOT DETECT) 05/09/22 20:15 Parainfluenza 3 (PCR) Not detected (NOT DETECT) 05/09/22 20:15 Parainfluenza 4 (PCR) Not detected (NOT DETECT) 05/09/22 20:15 RSV Type A (PCR) Not detected (NOT DETECT) 05/09/22 20:15 RSV Type B (PCR) Not detected (NOT DETECT) 05/09/22 20:15 Entero/Rhino (PCR) Not detected (NOT DETECT) 05/09/22 20:15 SARS-CoV-2 (PCR) Not detected (NOT DETECT) 05/09/22 20:15 Vitals Last Vital Signs Temp 97.7 F 05/12/22 18:00 Pulse 54 L 05/12/22 18:00 Resp 18 05/12/22 18:00 BP 142/75 05/12/22 18:00 Pulse Ox 94 05/12/22 18:00 O2 Del Method 05/11/22 15:31 O2 Flow Rate 2 05/10/22 20:47 FiO2 50 05/09/22 18:49 Discharge Plan Discharge Patient Disposition: Home Condition: Stable Prescriptions: New levofloxacin 250 mg tablet 250 mg PO DAILY 3 Days Qty: 3 0RF Continued allopurinol 100 mg tablet 100 mg PO DAILY aspirin 81 mg tablet,delayed release (DR/EC) 81 mg PO DAILY atorvastatin 20 mg tablet 20 mg PO DAILY calcium acetate 667 mg tablet 667 mg PO BID carvedilol 12.5 mg tablet 12.5 mg PO BID Rx Instructions: must administer with a meal/food nifedipine 90 mg tablet extended release 90 mg PO DAILY cholecalciferol (vitamin D3) 50 mcg (2,000 unit) capsule 100 mcg PO DAILY Nephro-Kiley 0.8 mg Tablet 1 tab PO DAILY Discharge Orders: Discharge Order (Routine); Ordered 05/12/22 Ordered By: Louise Finch Referrals: Shannan Cordero FNP [Referring] - 7-10 days Tiarra Bundy MD [Physician] - 1 month Discharge Diet: Cardiac Discharge Activity: Resume usual activity Patient Instructions: Levofloxacin (By mouth), End Stage Kidney Disease (DC), Shortness of Breath (DC), Opioid Safety Discharge Attestations Time Spent in Discharge Care*: greater than 30 min Quality Metrics Clinical Quality Measures [ No reported AMI, CVA or VTE this stay] Coding Level of Care Code Acute Chg FW DC note Diagnoses ESRD (end stage renal disease) N18.6 Shortness of breath R06.02 Fluid overload E87.70 Elevated troponin R77.8 Abnormal stress test R94.39
== END 2022-05-12 18:15 | disposition home or self-care (01) | DRG 640 ==
LOC: ER 22:44 → CSU 23:22 → MEDSURG 05-11 08:46
PROVIDERS: Internal Medicine; Admitting Provider Internal Medicine; Emergency Provider Emergency Medicine; Visit Provider Student in an Organized Health Care Education/Training Program
DX: E87.70 Fluid overload, unspecified (principal); I50.33 Acute on chronic diastolic (congestive) heart failure; N18.6 End stage renal disease; J96.01 Acute respiratory failure with hypoxia; J18.9 Pneumonia, unspecified organism; I13.2 Hypertensive heart and chronic kidney disease with heart failure and with stage 5 chronic kidney disease, or end stage renal disease; E87.1 Hypo-osmolality and hyponatremia; E87.4 Mixed disorder of acid-base balance; J20.9 Acute bronchitis, unspecified; D72.829 Elevated white blood cell count, unspecified; M1A.9XX0 Chronic gout, unspecified, without tophus (tophi); E78.5 Hyperlipidemia, unspecified; D53.1 Other megaloblastic anemias, not elsewhere classified; D63.1 Anemia in chronic kidney disease; E55.9 Vitamin D deficiency, unspecified; R05.3 Chronic cough; R77.8 Other specified abnormalities of plasma proteins; R94.39 Abnormal result of other cardiovascular function study; I25.2 Old myocardial infarction; Z99.2 Dependence on renal dialysis; Z86.73 Personal history of transient ischemic attack (TIA), and cerebral infarction without residual deficits; Z66 Do not resuscitate; Z87.891 Personal history of nicotine dependence; Z79.82 Long term (current) use of aspirin
CPT/HCPCS: 12345; 36415; 36600; 71045; 78452; 80053; 81001; 82728; 82746; 82805; 83036; 83540; 83550; 83605; 83735; 83880; 84100; 84145; 84443; 84484; 85025; 85610; 86803; 87040; 87086; 87340; 87486; 87581; 87633; 90935; 93005; 93017; 93306; 94640; 94660; 94664; 96365; 96372; 96375; 99291; A9500; J0456; J0696; J1644; J1940; J2785; J2920; J2930; J3475; J7050; Q3014

== ENCOUNTER 2023-03-28 11:39 | Emergency (ER) | payer OTHER, SELFPAY ==
[2023-03-28] VITALS (15 sets, daily range): BP systolic 116–230; BP diastolic 53–89; PULSE 66–88; RESP 18; TEMP 36.6–36.8; O2SAT 94–100; BMI 23.6
--- NOTE | 2023-03-28 11:58 | ED_ITS ---
HPI - Neuro Symptoms/Deficit General: Chief Complaint: Neuro Symptoms/Deficit Stated Complaint: speech problems, high bp Time Seen by Provider: 03/28/23 11:54 History of Present Illness: patient presents to the ER with complaints of speech problems since about 9:00 this morning. Patient's been having problems getting his words out and finding the appropriate words. Patient is not slurring his speech. Patient said this is improving rapidly. Patient does complain of a headache to and has a high blood pressure of 223/83. Patient has had a history of strokes in the past with minimal deficit. Patient was on a blood thinner up until about 2 weeks ago when he was switched over to an 81 mg aspirin secondary to a GI bleed. Other than patient's speech patient has no focal neurologic deficits. No weakness. Review of Systems General: Reports: 10 or more systems reviewed and unremarkable except in HPI and below PFSH ED PFSH: Medical History Chronic gout Elevated troponin ESRD (end stage renal disease) History of TIA (transient ischemic attack) Hyperlipidemia Hypertension Pleural effusion Vitamin B12 deficiency (dietary) anemia Vitamin D deficiency Surgical History History of left knee surgery History of right knee surgery S/P hemodialysis catheter insertion Family History Denies family history of Anesthesia complication Bleeding disorder Social History Smoking and tobacco/nicotine status: former use of tobacco/nicotine Alcohol intake: never Substance/Drug Use: never Physical Exam 2 Const: COMMON NORMALS: no acute distress, average body habitus, patient oriented x3, no limitations, healthy appearing, alert and well nourished HENMT: COMMON NORMALS: normocephalic, atraumatic, hearing grossly normal bilaterally, external ears normal, moist oral mucous membranes and oropharynx normal HEAD & SCALP: normocephalic and atraumatic EXTERNAL EAR: Yes external ears normal Eye: COMMON NORMALS: Equal, round and reactive pupils present, EOMs intact bilaterally, conjunctivae normal and no scleral icterus CONJUNCTIVA: Yes conjunctivae normal PUPIL: Yes Equal, round and reactive pupils present Neck/C-Spine: COMMON NORMALS: full ROM, no lymphadenopathy, supple, no m eningeal signs, no JVD and Thyroid normal THYROID: Thyroid normal Chest: COMMONS NORMALS: normal inspection of the chest and normal palpation of entire chest wall Resp: COMMON NORMALS: normal respiratory effort, No retractions, No use of accessory muscles and clear to auscultation bilaterally AUSCULTATION: clear to auscultation bilaterally Cardio: COMMON NORMALS: no JVD, regular rate, regular rhythm, S1 normal heart sound present, S2 normal heart sound present, No gallops present (Cardio), No clicks present (Cardio), No murmurs present (Cardio) and No rub (Cardio) RATE: regular rate RHYTHM: regular rhythm HEART SOUNDS: S1 normal heart sound present and S2 normal heart sound present GI: COMMON NORMALS: Normal to inspection, nondistended, normoactive bowel sounds present, Soft to palpation, non-tender, No hepatosplenomegaly present and no masses PALPATION: Yes Soft to palpation and Yes No hepatosplenomegaly pre sent : COMMON NORMALS: Yes no CVA tenderness BLADDER/KIDNEY EXAM: Yes no CVA tenderness Back/Pelvis: COMMON NORMALS: no CVA tenderness Neuro: COMMON NORMALS: patient oriented x3 SENSORIUM/ORIENTATION: Yes alert MENINGEAL SIGNS: Yes no meningeal signs OTHER: Possible mild dysarthri but no other neurologic deficits noted. Course Vital Signs: Vital signs: Vital Signs Temperature 98.3 F 03/28/23 11:46 Pulse Rate 66 03/28/23 11:51 Respiratory Rate 18 03/28/23 11:51 Blood Pressure 116/56 03/28/23 17:00 Pulse Oximetry 98 03/28/23 13:00 Oxygen Delivery Me thod Room Air 03/28/23 13:00 MDM - Neuro Symptoms/Deficit Medical Decision Making Patient presents to the ER with aphasic type speech difficulties. Patient was worked up in a strokelike manner the results of which were benign for the patient. Patient is a dialysis patient. The CT was negative. During this patient's blood pressure went upwards of 220/100. Patient was given 20 mg of hydralazine and 0.2 mg clonidine and this did not bring the blood pressure down. Patient was started on a Cardene drip which brought the blood pressure down nicely. Then patient was started to wean off the Cardene drip and blood pressure stayed down. Patient is normally on Coreg and nifedipine upon further questioning patient said he has been out of his medicine for about 5 days and just recently started them back yesterday. If pressure stays down after titrating off the Cardene drip patient will be discharged home to continue his current medical therapy. Patient is speaking back to normal with no aphasic type pattern. Due to patient's history of GI bleed and stopping the anticoagulation a couple weeks ago per patient patient will not be started back on anticoagulation but told to continue take 81 mg aspirin daily. Differential Diagnosis Likely transient cerebral ischemia; Unlikely carpal tunnel syndrome, convulsions, delirium, subarachnoid hemorrhage, peripheral neuropathy, cerebrovascular accident or multiple sclerosis Medical Records I reviewed the patient's medical records. Lab Data I reviewed the patient's lab results. 03/28/23 12:43 03/28/23 12:[address] 03/28/23 11:58 IMPRESSION: There are senescent changes of the brain as described above. No evidence for large acute ischemic infarction or acute intracranial injury. Chest X-Ray 03/28/23 12:00 IMPRESSION: No evidence for acute cardiopulmonary disease. Laboratory Results WBC 7.44 10^3/uL (3.29-11.43) 03/28/23 12:43 RBC 3.80 10^6/uL (3.85-5.65) L 03/28/23 12:43 Hgb 11.70 g/dL (11.27-16.99) 03/28/23 12:43 Hct 38.6 % (37-53) 03/28/23 12:43 MCV 101.6 fl (82-101) H 03/28/23 12:43 MCH 30.8 pg (27-33) 03/28/23 12:43 MCHC 30.3 g/dL (30-55) 03/28/23 12:43 RDW 16.0 % (12.1-15.1) H 03/28/23 12:43 Plt Count 171 10^3/cmm (157-399) 03/28/23 12:43 MPV 10.8 fL (7.4-10.4) H 03/28/23 12:43 Neut % (Auto) 63.7 % 03/28/23 12:43 Lymph % (Auto) 19.5 % 03/28/23 12:43 [place] % (Auto) 13.6 % 03/28/23 12:43 Eos % (Auto) 2.0 % 03/28/23 12:43 Baso % (Auto) 0.7 % 03/28/23 12:43 Neut # (Auto) 4.74 10^3/uL (1.8-7.7) 03/28/23 12:43 Lymph # (Auto) 1.5 10^3/uL (0.8-4.8) 03/28/23 12:43 [place] # (Auto) 1.0 10^3/uL (0.2-0.9) H 03/28/23 12:43 Eos # (Auto) 0.2 10^3/uL (0.0-0.8) 03/28/23 12:43 Baso # (Auto) 0.1 10^3/uL (0.0-0.1) 03/28/23 12:43 Nucleated RBC % (auto) 0 % 03/28/23 12:43 Nucleated RBCs # 0.0 /100WBC 03/28/23 12:43 PT 13.10 SECONDS (12.1-14.9) 03/28/23 12:43 INR 0.96 (0.8-1.2) 03/28/23 12:43 Sodium 133 mmol/L (136-145) L 03/28/23 12:43 Potassium 4.5 mmol/L (3.5-5.1) 03/28/23 12:43 Chloride 88 mmol/L (98-107) L 03/28/23 12:43 Carbon Dioxide 33 mmol/L (22-29) H 03/28/23 12:43 Anion Gap 16.5 (5-19) 03/28/23 12:43 BUN 32 mg/dL (8-23) H 03/28/23 12:43 Creatinine 6.1 mg/dL (0.7-1.2) H* 03/28/23 12:43 GFR Calculation Not Reportable 03/28/23 12:43 Glucose 120 mg/dL (65-115) H 03/28/23 12:43 Calculated Osmolality 284 mOsm/kg (285-295) L 03/28/23 12:43 Calcium 9.4 mg/dL (8.5-10.5) 03/28/23 12:43 Phosphorus 3.5 mg/dL (2.5-4.5) 03/28/23 12:43 Magnesium 2.4 mg/dL (1.7-2.3) H 03/28/23 12:43 Total Bilirubin 0.4 mg/dL (0.15-1.2) 03/28/23 12:43 AST 21 U/L (0-40) 03/28/23 12:43 ALT 7 U/L (0-41) 03/28/23 12:43 Alkaline Phosphatase 93 U/L (40-130) 03/28/23 12:43 Troponin T Baseline 61 ng/L (0-15) H 03/28/23 12:43 Troponin T 120 Minute 60.86 ng/L (0-15) H 03/28/23 14:28 Delta Troponin T -0.14 ABS# (0-10) L 03/28/23 14:28 Total Protein 7.2 g/dL (6.6-8.7) 03/28/23 12:43 Albumin 4.4 g/dL (3.5-5.2) 03/28/23 12:43 Globulin 2.8 g/dL (1.3-4.6) 03/28/23 12:43 TSH 2.51 uIU/mL (0.27-4.20) 03/28/23 12:43 All radiology interpretation(s) finalized by discharge EKG Data EKG 1: I personally reviewed and interpreted this EKG as follows: EKG interpretation date: 03/28/23 EKG interpretation time: 12:04 Prior EKG tracings: not available for review Interpretation: EKG showed ventricular rate of 64 bpm, DE interval 212, QRS duration 160, QTc of 473, sinus rhythm with first-degree AV block, right bundle branch block Discharge Plan Discharge Patient Disposition: Home Clinical Impression: Hypertensive urgency Transient cerebral ischemia Qualifiers: Transient cerebral ischemia type: unspecified Qualified Code(s): G45.9 - Transient cerebral ischemic attack, unspecified Condition: Stable Prescriptions: No Action allopurinol 100 mg tablet 100 mg PO DAILY atorvastatin 20 mg tablet 20 mg PO QPM calcium acetate 667 mg tablet 667 mg PO BID carvedilol 12.5 mg tablet 12.5 mg PO BID Rx Instructions: must administer with a meal/food nifedipine 90 mg tablet extended release 90 mg PO DAILY Discharge Orders: Discharge ED (Routine); Ordered 03/28/23 Ordered By: Berny Clarke Referrals: Humera Mayen MD [Primary Care Provider] - 1 week Patient Instructions: Hypertensive Crisis (ED), TIA Activity Restrictions/Additional Instructions: Please continue take all your medicine as directed. Please continue take 81 mg aspirin. Please follow-up with your primary care practitioner within the next 1 week for further evaluation and treatment. If your symptoms return please return to the ER for further evaluation and treatment. 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
--- NOTE | 2023-03-28 11:58 | CTR_ITS ---
PROCEDURE INFORMATION: Exam: CT Head Without Contrast Exam date and time: 03/28/2023 12:15 PM Age: 82 years old Clinical indication: Speech disturbance; Mild aphasia, HX of CVA TECHNIQUE: Imaging protocol: Computed tomography of the head without contrast. Radiation optimization: All CT scans at this facility use at least one of these dose optimization techniques: automated exposure control; mA and/or kV adjustment per patient size (includes targeted exams where dose is matched to clinical indication); or iterative reconstruction. REPORTING DATA: Count of CT and Cardiac NM exams in prior 12 months: This patient has received [address] and 0 known cardiac nuclear medicine studies in the 12 months prior to the current study. COMPARISON: No relevant prior studies available. RADIATION DOSE METRICS: Total DLP (mGy-cm): 1088.98 FINDINGS: Brain: There is diffuse cerebral atrophy present, consistent with this patient's age. Periventricular and subcortical white matter low densities are present which at this age likely represent microvascular ischemic change. There are small chronic lacunar infarcts in the internal capsules, right cerebellar hemisphere, and basal ganglia.No evidence for large acute ischemic infarction. Please note acute ischemia can be occult by head CT. Benign globus pallidus calcifications are present. Calcified plaque is present within the intracranial vasculature. Cerebral ventricles: No ventriculomegaly. Paranasal sinuses: Visualized sinuses are unremarkable. No fluid levels. Mastoid air cells: Visualized mastoid air cells are well aerated. Bones/joints: Unremarkable. No acute fracture. Soft tissues: Unremarkable. CT/CT head wo con* [id number] IMPRESSION: There are senescent changes of the brain as described above. No evidence for large acute ischemic infarction or acute intracranial injury.
--- NOTE | 2023-03-28 11:59 | ECG_ITS ---
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 Measurements Intervals [place] Rate: 64 P: 51 IA: 212 QRS: 48 QRSD: 160 T: 42 QT: 464 QTc: 480 Interpretive Statements SINUS RHYTHM WITH FIRST DEGREE AV BLOCK RIGHT BUNDLE BRANCH BLOCK [120+ ms QRS DURATION, UPRIGHT V1, 40+ ms S IN I/aVL/V4/V5/V6] Compared to ECG 05/10/2022 00:31:10 No significant changes Electronically Signed On 03-28-2023 19:23:52 CDT by Jovita Infante M.D. [email or web address]
--- NOTE | 2023-03-28 12:00 | XRR_ITS ---
PROCEDURE INFORMATION: Exam: XR Chest Exam date and time: 03/28/2023 12:18 PM Age: 82 years old Clinical indication: Other: HTN TECHNIQUE: Imaging protocol: Radiologic exam of the chest. Views: 1 view. COMPARISON: CR XR chest 1V portable [id number] 05/09/2022 7:56 PM FINDINGS: Lungs: There is scarring at the right lung apex similar to the prior study. Scarring and or atelectasis is present at the left lung base. Pleural spaces: Unremarkable. No pleural effusion. No pneumothorax. Heart/Mediastinum: Unremarkable. No cardiomegaly. Vasculature: Aortic knob is prominent. There is calcified plaque in the thoracic aorta. These findings are similar to the prior study. Bones/joints: Unremarkable. XR/XR chest 1V portable [id number] IMPRESSION: No evidence for acute cardiopulmonary disease.
[2023-03-28] MEDS: hyDRALAzine 20 mg/mL INJ 1 mL IVP (12:17)
[2023-03-28 12:59] LABS: Basophils # 0.1 10^3/uL (0.0-0.1); Basophils % 0.7 %; Eosinophils # 0.2 10^3/uL (0.0-0.8); Hematocrit 38.6 % (37-53); Lymphocytes # 1.5 10^3/uL (0.8-4.8); Lymphocytes % 19.5 %; Mean Corpuscular HGB Conc 30.3 g/dL (30-55); Mean Corpuscular Hemoglobin 30.8 pg (27-33); Mean Corpuscular Volume 101.6 fl (82-101); Mean Platelet Volume 10.8 fL (7.4-10.4); Monocytes % 13.6 %; Neutrophils # 4.74 10^3/uL (1.8-7.7); Neutrophils % 63.7 %; Nucleated Red Blood Cells % 0 %; Platelet Count 171 10^3/cmm (157-399); White Blood Count 7.44 10^3/uL (3.29-11.43)
[2023-03-28 13:11] LABS: INR 0.96 (0.8-1.2)
[2023-03-28 13:20] LABS: Troponin(5th) Baseline 61 ng/L (0-15)
[2023-03-28 13:34] LABS: Alanine Aminotransferase 7 U/L (0-41); Albumin Level 4.4 g/dL (3.5-5.2); Alkaline Phosphatase 93 U/L (40-130); Aspartate Amino Transferase 21 U/L (0-40); Blood Urea Nitrogen 32 mg/dL (8-23); Calcium 9.4 mg/dL (8.5-10.5); Carbon Dioxide 33 mmol/L (22-29); Chloride 88 mmol/L (98-107); Globulin 2.8 g/dL (1.3-4.6); Glucose 120 mg/dL (65-115); Magnesium 2.4 mg/dL (1.7-2.3); Osmolality Calculated 284 mOsm/kg (285-295); Phosphorus 3.5 mg/dL (2.5-4.5); Sodium 133 mmol/L (136-145); Thyroid Stimulating Hormone 2.51 uIU/mL (0.27-4.20); Total Bilirubin 0.4 mg/dL (0.15-1.2); Total Protein 7.2 g/dL (6.6-8.7)
[2023-03-28 13:38] LABS: Anion Gap 16.5 (5-19); Potassium 4.5 mmol/L (3.5-5.1)
--- NOTE | 2023-03-28 14:03 | ECG_ITS ---
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 Measurements Intervals [place] Rate: 63 P: 43 [place]: 217 QRS: 48 QRSD: 169 T: 13 QT: 491 QTc: 503 Interpretive Statements SINUS RHYTHM WITH FIRST DEGREE AV BLOCK RIGHT BUNDLE BRANCH BLOCK [120+ ms QRS DURATION, UPRIGHT V1, 40+ ms S IN I/aVL/V4/V5/V6] Compared to ECG 03/28/2023 12:04:04 No significant changes Electronically Signed On 03-28-2023 19:27:21 CDT by Jovita Infante M.D. [id number]
[2023-03-28] MEDS: cloNIDine 0.1 mg Tablet 0.2 MG PO (14:39)
[2023-03-28 15:03] LABS: Troponin 5 2HR 60.86 ng/L (0-15)
[2023-03-28 15:05] LABS: Troponin 5 2HR Delta -0.14 ABS# (0-10)
[2023-03-28] MEDS: nicardipine 20 MG/200 ML PREMIX 50 MG IV (15:33)
[2023-03-28] MEDS: acetaminophen 325 mg Tablet 650 MG PO (18:21)
[2023-03-28 19:09] LABS: Troponin 5 6HR 64.91 ng/L (0-15)
[2023-03-28 19:11] LABS: Troponin 5 6HR Delta 3.91 ng/L (0-12)
== END 2023-03-28 18:48 | disposition home or self-care (01) ==
PROVIDERS: Emergency Provider Emergency Medicine; PCP Family Medicine
DX: G45.9 Transient cerebral ischemic attack, unspecified (principal); I16.0 Hypertensive urgency; I12.0 Hypertensive chronic kidney disease with stage 5 chronic kidney disease or end stage renal disease; N18.6 End stage renal disease; Z86.73 Personal history of transient ischemic attack (TIA), and cerebral infarction without residual deficits; E78.5 Hyperlipidemia, unspecified; Z87.891 Personal history of nicotine dependence
CPT/HCPCS: 36415; 70450; 71045; 80053; 83735; 84100; 84443; 84484; 85025; 85610; 93005; 96365; 96366; 96375; 99285; 99291; 99292; J0360

== ENCOUNTER 2023-07-28 10:59 | Outpatient (CLI) | payer OTHER, SELFPAY ==
--- NOTE | 2023-07-28 11:06 | USCV_ITS ---
Fermin Patel Age: 83 Gender: M : 1940 Exam Date: 07/28/2023 11:26 Ordering Phys: Humera Mayen MD Technologist: CT Exam Location: [facility] [place] Indication: cp BP: 130 / 60 HR: Rhythm: Sinus Technical Quality: Adequate MEASUREMENTS (Male / Female) Normal Values 2D ECHO LVOT Diameter 2.3 cm LV Ejection Fraction MOD 2C 61.2 % Aorta at Sinotubular Diameter 3.1 cm IVC Diameter 1.6 cm M-MODE LA Ao Ratio MM 1.6 AV Cusp Separation MM 1.6 cm DOPPLER AV Peak Velocity 263.0 cm/s LVOT Peak Velocity 134.0 cm/s AV Area Cont Eq vti 2.3 cm squared AV Area Cont Eq pk 2.1 cm squared MV Area PHT 2.7 cm squared Mitral E to A Ratio 1.2 TR Peak Velocity 170.0 cm/s TR Peak Gradient 11.6 mmHg Right Atrial Pressure 3.0 mmHg Pulmonary Artery Systolic Pressu 14.6 mmHg PV Peak Velocity 101.0 cm/s FINDINGS Left Ventricle Left ventricle is normal size. LV systolic function is normal with EF of 55 to 60%. No regional wall abnormalities are seen. Right Ventricle Normal in size and function Right Atrium Normal in size Left Atrium Dilated Mitral Valve Mitral valve is thickened. Mild mitral regurgitation. Aortic Valve Aortic valve is thickened and calcified. Mild to moderate aortic stenosis with aortic valve area of 2 cm squared and mean gradient across aortic valve of 13 mmHg. Mild aortic regurgitation. Tricuspid Valve Mild tricuspid regurgitation. Insufficient TR jet to calculate RVSP. Pulmonic Valve Trace pulmonic regurgitation. Pericardium Normal Aorta Normal in size IVC Appears to be normal CONCLUSIONS LV systolic function is normal with EF of 55-60% Left atrial dilation Mild mitral regurgitation Mild to moderate aortic stenosis. Mild aortic regurgitation Mild tricuspid regurgitation Trace pulmonic regurgitation Compared to prior echocardiogram from 2021, no significant changes are seen Sean Levine MD (Electronically Signed) Final Date: 07 August 2023 10:52 S
== END 2023-07-28 11:00 | disposition home or self-care (01) ==
LOC: RAD 11:00
PROVIDERS: PCP Family Medicine; Visit Provider Family Medicine
DX: I08.3 Combined rheumatic disorders of mitral, aortic and tricuspid valves (principal); R07.9 Chest pain, unspecified
CPT/HCPCS: 93306

== ENCOUNTER 2023-12-03 10:16 | Inpatient (IN) | payer OTHER, SELFPAY ==
[2023-12-03] VITALS (46 sets, daily range): BP systolic 153–212; BP diastolic 58–106; PULSE 64–108; RESP 17–30; TEMP 32–36.4; O2SAT 66–100; BMI 20.3; BMI 22.9
--- NOTE | 2023-12-03 10:28 | XR_ITS ---
WS: [id number] Exam: XR chest 1V portable [id number] Date/Time of Exam: 12/03/2023 10:36 AM Reason For Exam: dyspnea/cough Comparison 03/28/2023. There is cardiac enlargement with pulmonary vascular congestion suggesting CHF. Small RIGHT pleural e ffusion noted. No pneumothorax. The mediastinum is normal in contour. Bony structures are intact. XR/XR chest 1V portable [id number] IMPRESSION: 1. Congestive heart failure pattern with small RIGHT basal pleural effusion.
--- NOTE | 2023-12-03 10:28 | ECG_ITS ---
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 Measurements Intervals [place] Rate: 109 P: 53 [place]: 172 QRS: 95 QRSD: 166 T: 48 QT: 367 QTc: 495 Interpretive Statements SINUS TACHYCARDIA RIGHT BUNDLE BRANCH BLOCK [120+ ms QRS DURATION, UPRIGHT V1, 40+ ms S IN I/aVL/V4/V5/V6] Compared to ECG 03/28/2023 14:03:07 Sinus rhythm no longer present First degree AV block no longer present Electronically Signed On 12-03-2023 13:43:19 CDT by Timur Matthews M.D. [id number]
--- NOTE | 2023-12-03 10:30 | ED_ITS ---
HPI - SOB/Dyspnea 2 General: Chief Complaint: Shortness of Breath/Dyspnea Stated Complaint: Sob Time Seen by Provider: 12/03/23 10:21 Source: patient Mode of arrival: wheelchair History of Present Illness: HPI Narrative: 83-year-old male presents emergency room complaining of shortness of breath difficulty breathing that began last night and worsened. He is not normally on oxygen he has a history of end-stage renal disease and is on dialysis he did receive his dialysis yesterday like normal. He is denies any chest pain or discomfort. He has no swelling in his legs. He denies fever sweats or chills or productive cough. Nursing staff reported on arrival he was at 66% on room air he was started on 15 L nonrebreather and sats improved to 100% this was titrated back to a nasal cannula before being switched to BiPAP ABG is pending patient has significant work of breathing on arrival with respiratory rate nearing 30. MD elicited complaint: shortness of breath Pertinent past history: COPD and other (End-stage renal disease) PFSH ED 2 PFSH: Medical History Pleural effusion Elevated troponin ESRD (end stage renal disease) Chronic gout Hypertension Hyperlipidemia Vitamin D deficiency Vitamin B12 deficiency (dietary) anemia History of TIA (transient ischemic attack) Surgical History S/P hemodialysis catheter insertion History of left knee surgery History of right knee surgery Family History Denies family history of Anesthesia complication Bleeding disorder Social History Smoking and tobacco/nicotine status: former use of tobacco/nicotine Alcohol intake: never Substance/Drug Use: never Course 2 Vital Signs: Vital signs: Vital Signs Temperature 89.6 F L 12/03/23 10:28 Pulse Rate 74 12/03/23 13:02 Respiratory Rate 17 12/03/23 12:30 Blood Pressure 207/91 12/03/23 12:30 Pulse Oximetry 99 12/03/23 13:02 Oxygen Delivery Me thod BiPAP 12/03/23 10:38 Fraction of Inspir ed Oxygen 50 12/03/23 13:02 MDM - SOB/Dyspnea Medical Decision Making Initial blood gas pCO2 and pO2 are both in the 40s. He is much improved after some time on the BiPAP. His troponin is elevated. He was also significantly hypertensive he is been given labetalol hydralazine and started on nitroglycerin drip as well as starting on heparin drip weight-based protocol because of the positive delta troponin. Discussed with hospitalist will admit consult cardiology as possible NSTEMI. White count elevated but has minimal elevation of his procalcitonin chest x-ray showed more signs of heart failure. Did not start antibiotics at this time. Lactic acid is normal. Medical Records I reviewed the patient's medical records. Lab Data I reviewed the patient's lab results. 12/03/23 10:33 12/03/23 10:33 Labs/Radiology: Radiology Impressions Chest X-Ray 12/03/23 10:28 IMPRESSION: 1. Congestive heart failure pattern with small RIGHT basal pleural effusion. Laboratory Results WBC 17.68 10^3/uL (3.29-11.43) H 12/03/23 10:33 RBC 3.27 10^6/uL (3.85-5.65) L 12/03/23 10:33 Hgb 10.40 g/dL (11.27-16.99) L 12/03/23 10:33 Hct 32.6 % (37-53) L 12/03/23 10:33 MCV 99.7 fl (82-101) 12/03/23 10:33 MCH 31.8 pg (27-33) 12/03/23 10:33 MCHC 31.9 g/dL (30-55) 12/03/23 10:33 RDW 16.3 % (12.1-15.1) H 12/03/23 10:33 Plt Count 221 10^3/cmm (157-399) 12/03/23 10:33 MPV 10.3 fL (7.4-10.4) 12/03/23 10:33 Neut % (Auto) 77.2 % 12/03/23 10:33 Lymph % (Auto) 9.4 % 12/03/23 10:33 [place] % (Auto) 12.0 % 12/03/23 10:33 Eos % (Auto) 0.5 % 12/03/23 10:33 Baso % (Auto) 0.3 % 12/03/23 10:33 Neut # (Auto) 13.66 10^3/uL (1.8-7.7) H 12/03/23 10:33 Lymph # (Auto) 1.7 10^3/uL (0.8-4.8) 12/03/23 10:33 [place] # (Auto) 2.1 10^3/uL (0.2-0.9) H 12/03/23 10:33 Eos # (Auto) 0.1 10^3/uL (0.0-0.8) 12/03/23 10:33 Baso # (Auto) 0.1 10^3/uL (0.0-0.1) 12/03/23 10:33 Nucleated RBC % (auto) 0 % 12/03/23 10:33 Nucleated RBCs # 0.0 /100WBC 12/03/23 10:33 Specimen Type Arterial 12/03/23 12:44 Sample Site Radial, left 12/03/23 12:44 ABG pH 7.48 (7.35-7.45) H 12/03/23 12:44 ABG pCO2 39.0 mmHg (35-45) 12/03/23 12:44 ABG pO2 80.1 mmHg (80.0-100.0) 12/03/23 12:44 ABG PO2/FiO2 Ratio 0 12/03/23 12:44 ABG HCO3 29.2 mmol/L (22-26) H 12/03/23 12:44 ABG O2 Saturation 94.2 12/03/23 12:44 ABG Base Excess 5.4 mmol/L (-2.0-2.0) H 12/03/23 12:44 Abisai Test Pos 12/03/23 12:44 A-a O2 Gradient 29.8 mmHg (5-10) H 12/03/23 12:44 Hematocrit 30.3 % (42-52) L 12/03/23 12:44 Hgb O2 Saturation 93.3 % (95-100) L 12/03/23 12:44 Carboxyhemoglobin 0.1 %THgb (0.4-20.1) L 12/03/23 12:44 Methemoglobin 0.8 % (0.4-1.5) 12/03/23 12:44 Total Hemoglobin 9.9 g/dL (14-18) L 12/03/23 12:44 Sodium 142.0 mmol/L (131-143) 12/03/23 12:44 Potassium 4.1 mmol/L (3.5-5.0) 12/03/23 12:44 Glucose 121.0 mg/dL (70-115) H 12/03/23 12:44 Ionized Calcium 1.1 mmol/L (1.1-1.4) 12/03/23 12:44 O2 Delivery Device Bipap 12/03/23 12:44 O2 Liters/Min 3.0 % 12/03/23 10:30 FiO2 50.0 % 12/03/23 12:44 Aircraft Powertrain Repairer ID [place] 12/03/23 12:44 Sodium 143 mmol/L (136-145) 12/03/23 10:33 Potassium 4.3 mmol/L (3.5-5.1) 12/03/23 10:33 Chloride 100 mmol/L (98-107) 12/03/23 10:33 Carbon Dioxide 28 mmol/L (22-29) 12/03/23 10:33 Anion Gap 19.3 (5-19) H 12/03/23 10:33 BUN 21 mg/dL (8-23) 12/03/23 10:33 Creatinine 4.6 mg/dL (0.7-1.2) H 12/03/23 10:33 GFR Calculation Not Reportable 12/03/23 10:33 Glucose 146 mg/dL (65-115) H 12/03/23 10:33 Calculated Osmolality 302 mOsm/kg (285-295) H 12/03/23 10:33 Lactic Acid 1.6 mmol/L (0.5-2.2) 12/03/23 10:33 Calcium 9.3 mg/dL (8.5-10.5) 12/03/23 10:33 Total Bilirubin 0.6 mg/dL (0.15-1.2) 12/03/23 10:33 AST 20 U/L (0-40) 12/03/23 10:33 ALT 9 U/L (0-41) 12/03/23 10:33 Alkaline Phosphatase 103 U/L (40-130) 12/03/23 10:33 Troponin T Baseline 90 ng/L (0-15) H 12/03/23 10:33 Troponin T 120 Minute 129.3 ng/L (0-15) H 12/03/23 12:16 Delta Troponin T 39.3 ABS# (0-10) H* 12/03/23 12:16 NT-Pro-B Natriuret Pep 93576 pg/mL (0-450) H 12/03/23 10:33 Total Protein 7.8 g/dL (6.6-8.7) 12/03/23 10:33 Albumin 4.7 g/dL (3.5-5.2) 12/03/23 10:33 Globulin 3.1 g/dL (1.3-4.6) 12/03/23 10:33 Procalcitonin 0.89 ng/mL (0-0.5) H 12/03/23 12:16 Urine Color Yellow (Yellow) 12/03/23 12:12 Urine Appearance Clear (CLEAR) 12/03/23 12:12 Urine pH 9 (5-7) H 12/03/23 12:12 Ur Specific [place] 1.020 (1.005-1.030) 12/03/23 12:12 Urine Protein 2+ (Negative) H 12/03/23 12:12 Urine Glucose (UA) Norm (Normal) 12/03/23 12:12 Urine Ketones Negative (Negative) 12/03/23 12:12 Urine Blood 3+ (Negative) H 12/03/23 12:12 Urine Nitrate Negative (Negative) 12/03/23 12:12 Urine Bilirubin Neg (Negative) 12/03/23 12:12 Prot Sulfosalicylic Acd Positive (Negative) 12/03/23 12:12 Urine Urobilinogen Norm mg/dL (Negative) 12/03/23 12:12 Ur Leukocyte Esterase Negative (Negative) 12/03/23 12:12 Urine RBC >100 /hpf (0-2) 12/03/23 12:12 Urine WBC 0-4 /hpf (0-5) H 12/03/23 12:12 Ur Squamous Epith Cells 0-4 /hpf (0-5) H 12/03/23 12:12 Amorphous Sediment Not Reportable 12/03/23 12:12 Urine Bacteria None /hpf (NONE) 12/03/23 12:12 Urine Mucus None /hpf 12/03/23 12:12 All radiology interpretation(s) finalized by discharge Discharge Plan Discharge Condition: Stable Prescriptions: No Action allopurinol 100 mg tablet 100 mg PO DAILY calcium acetate 667 mg tablet 667 mg PO BID atorvastatin 40 mg Tablet 20 mg PO QPM carvedilol 25 mg Tablet 25 mg PO BID Rx Instructions: must administer with a meal/food lisinopril 20 mg Tablet 20 mg PO BEDTIME omeprazole 40 mg Capsule,Delayed Release(Dr/Ec) 40 mg PO QAM nifedipine 60 mg Tablet Extended Release 24hr 120 mg PO DAILY Agnieszka-Kiley 0.8 mg Tablet 1 tab PO DAILY Vitamin D3 50 mcg (2,000 unit) Tablet 100 mcg PO DAILY lidocaine 5 % Ointment 1 applic TOPICAL TID PRN (Reason: Pain) Referrals: Humera Mayen MD [Primary Care Provider] - Coding Level of Care Code ED [place] 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
[2023-12-03 10:38] LABS: Basophils # 0.1 10^3/uL (0.0-0.1); Basophils % 0.3 %; Eosinophils # 0.1 10^3/uL (0.0-0.8); Eosinophils % 0.5 %; Hematocrit 32.6 % (37-53); Lymphocytes # 1.7 10^3/uL (0.8-4.8); Lymphocytes % 9.4 %; Mean Corpuscular HGB Conc 31.9 g/dL (30-55); Mean Corpuscular Hemoglobin 31.8 pg (27-33); Mean Corpuscular Volume 99.7 fl (82-101); Mean Platelet Volume 10.3 fL (7.4-10.4); Monocytes # 2.1 10^3/uL (0.2-0.9); Neutrophils # 13.66 10^3/uL (1.8-7.7); Neutrophils % 77.2 %; Nucleated Red Blood Cells % 0 %; Platelet Count 221 10^3/cmm (157-399); Red Blood Count 3.27 10^6/uL (3.85-5.65); Red Cell Distribution Width 16.3 % (12.1-15.1); White Blood Count 17.68 10^3/uL (3.29-11.43)
[2023-12-03 10:40] LABS: ABG PCO2 46.8 mmHg (35-45); ABG PH Result 7.43 (7.35-7.45); Alveolar-Arterial Oxygen Gradi 16.2 mmHg (5-10); Arterial Blood Gas Hematocrit 32.4 % (42-52); Base Excess ABG 5.6 mmol/L (-2.0-2.0); Blood Gas Allen Test Pos; Blood Gas Operator Identificat WALCI; Blood Gas Sample Site Radial, left; Blood Gas Sample Type Arterial; Carboxyhemoglobin 0.5 %THgb (0.4-20.1); HCO3 ABG 30.8 mmol/L (22-26); HGB O2 Sat 80.3 % (95-100); Ionized Calcium Level - ABG 1.2 mmol/L (1.1-1.4); Methemoglobin 0.7 % (0.4-1.5); Oxygen Device NC; Oxygen Saturation ABG 81.3; PO2 FiO2 Ratio Arterial Blood 0; Potassium Level - ABG 4.1 mmol/L (3.5-5.0); Total Hemoglobin 10.6 g/dL (14-18)
[2023-12-03] MEDS: ipratropium-albuterol 3 mL Neb INHALATION (10:44)
--- NOTE | 2023-12-03 10:59 | PC.PHAR ---
PT IS [facility] FOR MED LIST 10:59AM 12/03/23
[2023-12-03 11:03] LABS: Troponin(5th) Baseline 90 ng/L (0-15)
[2023-12-03 11:13] LABS: Alanine Aminotransferase 9 U/L (0-41); Albumin Level 4.7 g/dL (3.5-5.2); Alkaline Phosphatase 103 U/L (40-130); Anion Gap 19.3 (5-19); Aspartate Amino Transferase 20 U/L (0-40); Blood Urea Nitrogen 21 mg/dL (8-23); Calcium 9.3 mg/dL (8.5-10.5); Carbon Dioxide 28 mmol/L (22-29); Chloride 100 mmol/L (98-107); Creatinine Clr Calc Pharmacy 12.4741; Globulin 3.1 g/dL (1.3-4.6); Glucose 146 mg/dL (65-115); Osmolality Calculated 302 mOsm/kg (285-295); Potassium 4.3 mmol/L (3.5-5.1); Sodium 143 mmol/L (136-145); Total Bilirubin 0.6 mg/dL (0.15-1.2); Total Protein 7.8 g/dL (6.6-8.7)
[2023-12-03 11:20] LABS: Lactic Sepsis W/Reflex 1.6 mmol/L (0.5-2.2)
[2023-12-03 11:38] LABS: NT Pro B Type Natriuretic Pept 60823 pg/mL (0-450)
--- NOTE | 2023-12-03 12:20 | ECG_ITS ---
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 Measurements Intervals [place] Rate: 81 P: 14 [place]: 142 QRS: 43 QRSD: 166 T: 30 QT: 439 QTc: 511 Interpretive Statements SINUS RHYTHM RIGHT BUNDLE BRANCH BLOCK [120+ ms QRS DURATION, UPRIGHT V1, 40+ ms S IN I/aVL/V4/V5/V6] Compared to ECG 12/03/2023 10:29:05 Sinus tachycardia no longer present Electronically Signed On 12-03-2023 14:02:15 CDT by Timur Matthews M.D. [id number]
[2023-12-03 12:24] LABS: Urine Appearance Clear (CLEAR); Urine Color Yellow (Yellow)
[2023-12-03 12:25] LABS: Blood Urine 3+ (Negative); Glucose Urine UA Norm (Normal); Ketones Urine Negative (Negative); Protein Urine 2+ (Negative); pH Urine 9 (5-7)
[2023-12-03 12:26] LABS: Add Urine Microscopic? YES; Bilirubin Urine Neg (Negative); Leukocyte Esterase Urine Negative (Negative); Nitrate Urine Negative (Negative); Sulfosalicylic Acid Urine Positive (Negative); Urobilinogen Urine Norm (Negative)
[2023-12-03 12:29] LABS: RBC Urine >100 /hpf (0-2); Squamous Epithelial Cell Urine 0-4 /hpf (0-5); WBC Urine 0-4 /hpf (0-5)
[2023-12-03 12:30] LABS: Add Urine Culture? Yes
[2023-12-03] MEDS: hyDRALAzine 20 mg/mL INJ 1 mL 10 MG IVP (12:44)
[2023-12-03 12:46] LABS: Troponin 5 2HR 129.3 ng/L (0-15); Troponin 5 2HR Delta 39.3 ABS# (0-10)
[2023-12-03] MEDS: labetalol 5 mg/mL SDV 20mL 10 MG IVP (12:46)
[2023-12-03] MEDS: FUROsemide 10 mg/mL SDV 4mL 40 MG IVP ×2 (12:48→23:16)
--- NOTE | 2023-12-03 12:52 | USCV_ITS ---
Fermni Patel Age: 83 Gender: M : 1940 Exam Date: 12/03/2023 14:20 Ordering Phys: Landen Pino DO Technologist: WENDY Exam Location: [facility] – [place] Indication: nstemi BP: 198 / 93 HR: Rhythm: Sinus Technical Quality: Adequate MEASUREMENTS (Male / Female) Normal Values 2D ECHO LV Diastolic Diameter PLAX 5.7 cm 4.2 - 5.9 / 3.9 - 5.3 cm IVS Diastolic Thickness 1.2 cm 0.6 - 1.0 / 0.6 - 0.9 cm IVS Systolic Thickness 1.4 cm LVPW Diastolic Thickness 1.1 cm 0.6 - 1.0 / 0.6 - 0.9 cm LVPW Systolic Thickness 1.9 cm LVOT Diameter 2.0 cm LV Ejection Fraction 2D Teich 70.1 % LV Ejection Fraction MOD 2C 75.7 % LV Ejection Fraction 2C AL 76.5 % LA Diameter 3.5 cm RA Systolic Volume 4C AL 44.9 ml RA Systolic Volume 4C MOD 45.0 ml LA Sys Volume AL 66.0 cm cubed LA Sys Volume Index AL 33.4 cm cubed/m squared Aorta at Sinotubular Diameter 2.4 cm IVC Diameter 1.8 cm M-MODE LA Ao Ratio MM 1.1 AV Cusp Separation MM 0.6 cm FINDINGS Left Ventricle This is a 2-dimensional study only. No M-mode or Doppler examination was performed. There is at least mild left ventricular hypertrophy. No regional wall motion disturbances. Normal left ventricular size and function. Ejection fraction 60%. Right Ventricle Normal right ventricular size and systolic function. Right Atrium The right atrium is normal in size. Left Atrium The left atrium is normal in size. Mitral Valve Structurally normal mitral valve. Aortic Valve Aortic valve is calcified and thickened. There appears to be some restriction of leaflet motion visually. The valve is stenosed however no Doppler interrogation was performed so specifics cannot be determined. Tricuspid Valve Structurally normal tricuspid valve. Pulmonic Valve Pulmonic valve not well visualized. Pericardium Normal pericardium without effusion. Aorta Normal ascending aorta dimension. IVC The inferior vena cava appears normal. CONCLUSIONS This is a 2-dimensional study only. No M-mode or Doppler examination was performed. There is at least mild left ventricular hypertrophy. No regional wall motion disturbances. Normal left ventricular size and function. Ejection fraction 60%. Aortic valve is calcified and thickened. There appears to be some restriction of leaflet motion visually. The valve is stenosed however no Doppler interrogation was performed so specifics cannot be determined. A complete transthoracic echo was done 3 months ago. There is essentially no change. The aortic valve was found to be mildly to moderately stenosed at that time. Dr. Timur Matthews MD (Electronically Signed) Final Date: 04 December 2023 11:32 S
[2023-12-03 12:56] LABS: ABG PH Result 7.48 (7.35-7.45); Alveolar-Arterial Oxygen Gradi 29.8 mmHg (5-10); Arterial Blood Gas Hematocrit 30.3 % (42-52); Base Excess ABG 5.4 mmol/L (-2.0-2.0); Blood Gas Allen Test Pos; Blood Gas Operator Identificat WALCI; Blood Gas Sample Site Radial, left; Blood Gas Sample Type Arterial; Carboxyhemoglobin 0.1 %THgb (0.4-20.1); HCO3 ABG 29.2 mmol/L (22-26); HGB O2 Sat 93.3 % (95-100); Ionized Calcium Level - ABG 1.1 mmol/L (1.1-1.4); Methemoglobin 0.8 % (0.4-1.5); Oxygen Device BIPAP; Oxygen Saturation ABG 94.2; PO2 ABG 80.1 mmHg (80.0-100.0); PO2 FiO2 Ratio Arterial Blood 0; Potassium Level - ABG 4.1 mmol/L (3.5-5.0); Total Hemoglobin 9.9 g/dL (14-18)
[2023-12-03 13:00] LABS: Procalcitonin 0.89 ng/mL (0-0.5)
[2023-12-03] MEDS: heparin 5,000 unit/mL INJ 1 mL IV (13:29)
[2023-12-03] MEDS: heparin drip 25,000 UNIT/500 ML PREMIX 22 UNIT IV (13:38)
--- NOTE | 2023-12-03 13:52 | P.HP_ITS ---
Providers/Chief Complaint 2 Primary Care Provider: Humera Mayen MD Chief Complaint: Sob History of Present Illness Fermin Patel is a 83 year old male 82 year old male with past medical history of chronic gout, end-stage renal disease on dialysis Wednesday, hyperlipidemia, hypertension, B12 deficiency, diastolic CHF, vitamin D deficiency positive stress test 2021 which showed positive changes in LAD territory with old PA severity of apical inferior and apical lateral and apical anterior wall wall motion abnormality was mild patient was managed medically presented today with chief complaint of shortness of breath. Patient is not oxygen dependent at home Discharge dressing orthopnea PND shortness of breath without any chest pain fever nausea vomiting or significant sputum production. In the ER he was put on BiPAP which improved his hypercapnia, he was diagnosed with non-STEMI was put on heparin drip echo was requested. Patient is stating that he started having discomfort around his shoulders initially thought it is related to osteoarthritis but it was staying persistent his sister asked him to go to the ER for further evaluation, he did not experience improvement of pain until unless he was put on BiPAP and hypoxia was treated in the ER he is describing his pain as achy nonradiating Nauseous as well, he has not noticed fever, recent diarrhea. Last hemodialysis session was on Review of Systems 2 Const: Denies: fever(s) Eyes: Denies: change in vision ENMT: Denies: throat pain Card: Reports: palpitations and swelling of feet/ankles; Denies: chest pain Resp: Reports: dyspnea GI: Denies: abdominal pain : Denies: flank pain Musc: Denies: neck pain Medications/Allergies Home Medications Medication Instructions Recorded Confirmed Last Taken Type allopurinol 100 mg tablet 100 mg PO DAILY 10/08/20 12/03/23 12/02/23 History calcium acetate 667 mg tablet 667 mg PO BID 10/08/20 12/03/23 12/02/23 History atorvastatin 40 mg tablet 20 mg PO QPM 12/03/23 12/03/23 12/02/23 History carvedilol 25 mg tablet 25 mg PO BID 12/03/23 12/03/23 12/02/23 History cholecalciferol (vitamin D3) 50 100 mcg PO DAILY 12/03/23 12/03/23 12/02/23 History mcg (2,000 unit) tablet (Vitamin D3) lidocaine 5 % topical ointment 1 applic topical TID PRN Pain 12/03/23 12/03/23 Unknown History lisinopril 20 mg tablet 20 mg PO BEDTIME 12/03/23 12/03/23 12/02/23 History nifedipine 60 mg tablet,extended 120 mg PO DAILY 12/03/23 12/03/23 12/02/23 History release 24 hr omeprazole 40 mg capsule,delayed 40 mg PO QAM 12/03/23 12/03/23 12/02/23 History release vitamin B complex-vitamin C-folic 1 tab PO DAILY 12/03/23 12/03/23 12/02/23 History acid 0.8 mg tablet (Agnieszka-Kiley) Allergies Allergy/AdvReac Type Severity Reaction Status Date / Time No Known Allergies Allergy Verified 03/28/23 12:15 PFSH Acute 2 PFSH: Medical History (Updated 12/03/23 @ 14:03 by Jarret Fish MD) Abnormal stress test COVID-19 Pleural effusion Elevated troponin ESRD (end stage renal disease) Chronic gout Hypertension Hyperlipidemia Vitamin D deficiency Vitamin B12 deficiency (dietary) anemia History of TIA (transient ischemic attack) Surgical History S/P hemodialysis catheter insertion History of left knee surgery History of right knee surgery Family History Denies family history of Anesthesia complication Bleeding disorder Social History Smoking and tobacco/nicotine status: former use of tobacco/nicotine Alcohol intake: never Substance/Drug Use: never Vitals/I&O/Wt Last Vital Signs Temp 89.6 F L 12/03/23 10:28 Pulse 74 12/03/23 13:02 Resp 17 12/03/23 12:30 BP 207/91 12/03/23 12:30 Pulse Ox 99 12/03/23 13:02 O2 Del Method BiPAP 12/03/23 10:38 FiO2 50 12/03/23 13:02 Weight last 48 hrs Weight 76.657 kg Weight 68.039 kg Physical Exam 2 Narrative: Clinical signs of fluid overload Anterior disease patient Volume overload Currently is BiPAP Hypertensive No new focal deficit S1, S2 Abdomen nontender s Data 12/03/23 10:33 12/03/23 10:33 Micro: Microbiology 12/03/23 11:20 Blood Culture - Preliminary Blood SPECIMEN COLLECTED 12/03/23 11:17 Blood Culture - Preliminary Blood SPECIMEN COLLECTED A&P Assessment and plan (1) NSTEMI (non-ST elevated myocardial infarction): (2) Acute exacerbation of CHF (congestive heart failure): Plan Non-STEMI Initiate ACS protocol Requested echo Dr. Matthews has been consulted in the ER End-stage renal disease Volume overloaded with CHF exacerbation No active chest pain Patient is dialyzed Wednesday Will call nephro DNR/DNI Patient stating that he does not have official medical DPOA but would like his sister to make decision if something were to happen Acute hypercapnic hypoxic respiratory failure improved on BiPAP Does not use oxygen at home Lives alone: Attestations 2 Medical Necessity Statement*: anticipating more than 2 midnights Diagnoses NSTEMI (non-ST elevated myocardial infarction) I21.4 Acute exacerbation of CHF (congestive heart failure) I50.9
[2023-12-03 14:03] LABS: Adenovirus Not Detected (NOT DETECT); Chlamydia Pneumoniae Not Detected (NOT DETECT); Coronavirus 229E,HKU1,NL63,OC4 Not Detected (NOT DETECT); Human Metapneumovirus Not Detected (NOT DETECT); Human Rhinovirus/Enterovirus Not Detected (NOT DETECT); Influenza A Not Detected (NOT DETECT); Influenza A H1 Not Detected (NOT DETECT); Influenza A H1-2009 Not Detected (NOT DETECT); Influenza A H3 Not Detected (NOT DETECT); Influenza B Not Detected (NOT DETECT); Mycoplasma Pneumoniae Not Detected (NOT DETECT); Parainfluenza Virus Type 1 Not Detected (NOT DETECT); Parainfluenza Virus Type 2 Not Detected (NOT DETECT); Parainfluenza Virus Type 3 Not Detected (NOT DETECT); Parainfluenza Virus Type 4 Not Detected (NOT DETECT); Respiratory Syncytial Virus A Not Detected (NOT DETECT); Respiratory Syncytial Virus B Not Detected (NOT DETECT); SARS-COV-2 Not Detected (NOT DETECT)
[2023-12-03 14:44] LABS: D Dimer 3.31 ug/mLFEU (0-0.59)
[2023-12-03 15:29] LABS: Thyroid Stimulating Hormone 3.61 uIU/mL (0.27-4.20)
[2023-12-03] MEDS: nitroglycerin drip 50 MG/250 ML PREMIX IV (15:30)
[2023-12-03 15:32] LABS: Estmated Average Glucose 85; Hemoglobin A1C 4.6 % (4.0-6.0)
[2023-12-03 16:49] LABS: Glucose Point of Care 125 mg/dL (70-110)
--- NOTE | 2023-12-03 17:27 | P.CONIM_ITS ---
Providers/Reason For Consult 2 Consulting Physician/Specialty*: Cardiovascular medicine Reason for Consult*: Heart failure, elevated troponin Requesting Physician: Hospitalist Attending Physician: Jarret Fish MD Primary Care Provider: Humera Mayen MD History of Present Illness History of Present Illness Fermin Patel is a 83 year old male with end-stage renal disease on hemodialysis. He visits the emergency room fairly often for hypertensive urgency. He also has admits for diastolic heart failure, volume overload and hypertensive urgency. When he is admitted or seen for these his troponin is usually elevated. He had hemodialysis yesterday. He tells me that he has been short of breath since Wednesday which is 2 days ago. It has progressively gotten worse. Apparently he is told by the dialysis staff to go to the emergency room but he typically declines to do that. Today he got in trouble and was simply unable to breathe. When he arrived at the emergency room his room air oxygen saturation was 66%. He was an extremis. He was placed on 100% nonrebreather and then a BiPAP mask. This improved his overall respiratory status. His blood pressure was 207/91. He has been admitted to the floor and is still on a BiPAP mask so history taking is limited. He says he does make urine. There is no recording as to how much urine he may have made since he has been in the hospital. He has end-stage renal disease on dialysis, he has hypertension, he has had COVID, dyslipidemia, TIAs, gout, B12 deficiency and anemia. To my knowledge he has never had any evidence of coronary artery disease or myocardial infarction. He just had an echo in July which revealed a normal ejection fraction of 55 to 60% without wall regional wall motion disturbances, mild mitral regurgitation and mild aortic stenosis and insufficiency. He had a sestamibi examination in 2021 which showed an attenuation artifact in the distribution the LAD without ischemia. He is seen for primary care by the [place]. Apparently just had an echo there a day or 2 ago but of course we do not have access to that information. He has not had any chest pain. This illness is characterized by shortness of breath. His white blood cell count is 17,000. Hemoglobin and hematocrit are 10 and 32. His troponins are 90 and 129. His chest x-ray shows volume overload and pulmonary vascular redistribution with pleural effusion. His EKGs were unchanged from all of his previous tracings. They reveal sinus rhythm and sinus tachycardia with a right bundle branch block and no ST or T wave changes or evidence of a myocardial infarction. Review of Systems 2 Narrative: Unable to assess due to the BiPAP mask Medications/Allergies Home Medications Medication Instructions Recorded Confirmed Last Taken Type allopurinol 100 mg tablet 100 mg PO DAILY 10/08/20 12/03/23 12/02/23 History calcium acetate 667 mg tablet 667 mg PO BID 10/08/20 12/03/23 12/02/23 History atorvastatin 40 mg tablet 20 mg PO QPM 12/03/23 12/03/23 12/02/23 History carvedilol 25 mg tablet 25 mg PO BID 12/03/23 12/03/23 12/02/23 History cholecalciferol (vitamin D3) 50 100 mcg PO DAILY 12/03/23 12/03/23 12/02/23 History mcg (2,000 unit) tablet (Vitamin D3) lidocaine 5 % topical ointment 1 applic topical TID PRN Pain 12/03/23 12/03/23 Unknown History lisinopril 20 mg tablet 20 mg PO BEDTIME 12/03/23 12/03/23 12/02/23 History nifedipine 60 mg tablet,extended 120 mg PO DAILY 12/03/23 12/03/23 12/02/23 History release 24 hr omeprazole 40 mg capsule,delayed 40 mg PO QAM 12/03/23 12/03/23 12/02/23 History release vitamin B complex-vitamin C-folic 1 tab PO DAILY 12/03/23 12/03/23 12/02/23 History acid 0.8 mg tablet (Agnieszka-Kiley) Allergies Allergy/AdvReac Type Severity Reaction Status Date / Time No Known Allergies Allergy Verified 03/28/23 12:15 Current Medications Generic Name Dose Route Start Last Admin Trade Name Freq PRN Reason Stop Dose Admin Heparin Sodium (Porcine) 0 unit 12/03/23 12:47 12/03/23 13:29 Heparin 5,000 Unit/Ml Inj 1 Ml IV 3,100 unit PRN PRN Administration Heparin weight-base protocol Protocol Heparin Sodium/Sodium Chloride 25,000 unit in 500 mls @ 0 mls/hr 12/03/23 13:00 12/03/23 13:38 Heparin Drip IV 16.17 unit/kg/hr .Q0M GUMARO 22 mls/hr Administration Protocol Per Protocol Nitroglycerin/Dextrose 50 mg in 250 mls @ 0 mls/hr 12/03/23 13:00 12/03/23 15:30 Nitroglycerin Drip IV 10 mcg/min .Q0M GUMARO 3 mls/hr Administration Protocol Per Protocol PFSH Acute 2 PFSH: Medical History (Updated 12/03/23 @ 14:03 by Jarret Fish MD) Abnormal stress test COVID-19 Pleural effusion Elevated troponin ESRD (end stage renal disease) Chronic gout Hypertension Hyperlipidemia Vitamin D deficiency Vitamin B12 deficiency (dietary) anemia History of TIA (transient ischemic attack) Surgical History S/P hemodialysis catheter insertion History of left knee surgery History of right knee surgery Family History Denies family history of Anesthesia complication Bleeding disorder Social History Smoking and tobacco/nicotine status: former use of tobacco/nicotine Alcohol intake: never Substance/Drug Use: never Vitals/I&O/Wt Last Vital Signs Temp 89.6 F L 12/03/23 10:28 Pulse 81 12/03/23 16:34 Resp 17 12/03/23 12:30 BP 207/91 12/03/23 12:30 Pulse Ox 100 12/03/23 16:34 O2 Del Method BiPAP 12/03/23 16:54 FiO2 50 12/03/23 16:34 Weight last 48 hrs Weight 169 lb Weight 169 lb Weight 150 lb Physical Exam 2 Narrative: GENERAL: In general he is awake alert oriented and conversant but has a BiPAP mask in place HEENT: Exam within normal limits. NECK: Supple without jugular vein distention. The carotid upstroke is normal without bruits. BACK: Exam normal. LUNGS: Moist rales in both bases HEART: Regular rate and rhythm. ABDOMEN: Benign without organomegaly or tenderness. EXTREMITIES: No edema. NEUROLOGIC: Exam normal. SKIN: Unremarkable. Data 12/03/23 10:33 12/03/23 10:33 Micro: Microbiology 12/03/23 11:20 Blood Culture - Preliminary Blood SPECIMEN COLLECTED 06/21/24 11:17 Blood Culture - Preliminary Blood SPECIMEN COLLECTED Consult Attestations 2 Medical Necessity Statement: This is volume overload, specifically congestive heart failure due to diastolic dysfunction, hypertensive urgency and end-stage renal disease. The troponin elevation is secondary to these things. It is a type II situation. I do not think this is coronary ischemia. He was put on intravenous nitroglycerin for the purposes of lowering his blood pressure. This can be weaned off and he changed over to p.o. medications. I do not think he needs the intravenous heparin. He needs fluid removal either by increased urine output or dialysis. His BNP is nearly 61,000. He does not need coronary angiography. At most he could have another Lexiscan sestamibi but not until his heart failure is compensated. He has had no chest pain and so I do not feel compelled to do that during this hospital stay necessarily. and High Time for a total of 60 minutes, includes reviewing past or interval history, examining/interviewing patient, counseling patient/family/other support, updating patient/family/other support, discussing plan of care with staff, communicating with other healthcare providers and documenting encounter
--- NOTE | 2023-12-03 18:00 | PC.NURSE ---
Transferred pt to room ICU-3 via bed with oxygen. Pt tolerated well. Pt was transferred to ICU d/t CSU being shut down and the pt was requiring NTG gtt and heparin gtt.
[2023-12-03] MEDS: carvedilol 25 mg Tablet PO (18:08)
--- NOTE | 2023-12-03 18:25 | PC.NURSE ---
Nitro running at 25 mcg currently aug shows 10 mcg, increased to 30 mcg per protocol
[2023-12-03] MEDS: FUROsemide 10 mg/mL SDV 10mL 40 MG IVP (19:31)
[2023-12-03 20:05] LABS: Partial Thromboplastin Time 159.8 SECONDS (23.9-36.7)
[2023-12-03 22:13] LABS: Partial Thromboplastin Time 111.5 SECONDS (23.9-36.7)
[2023-12-03] MEDS: morphine 4 mg/mL SDV 1 mL 1 MG IVP (23:16)
[2023-12-03] MEDS: nicardipine 20 MG/200 ML PREMIX 50 MG IV (23:21)
[2023-12-04] VITALS (69 sets, daily range): BP systolic 118–183; BP diastolic 50–108; PULSE 62–94; RESP 14–26; TEMP 36.8–37.5; O2SAT 91–98
--- NOTE | 2023-12-04 00:45 | PC.NURSE ---
2245 Patient c/o being short of breath without chest pain. RR 28 lungs diminished. Tripoding, states doesn't help to change positions. On bipap, o2 staturation 95 %. Bp still elevated despite being on nitroglycerine drip. Ptt 111.5. Dr. Leonard called updated on status and labs. new orders obtained. Heparin drip restarted and titrated as ordered. Nitroglycerine drip discontinued and nicardipine drip started. Lasix and morphine iv push given as ordered. Patient reports feeling better after. bp improved, RR rate down to low 20s, resting comfortably on bed.
[2023-12-04] MEDS: nicardipine 20 MG/200 ML PREMIX 75 MG IV (03:31)
[2023-12-04 05:10] LABS: Basophils % 0.2 %; Eosinophils % 0.1 %; Hematocrit 29.8 % (37-53); Lymphocytes # 1.3 10^3/uL (0.8-4.8); Lymphocytes % 10.8 %; Mean Corpuscular HGB Conc 31.2 g/dL (30-55); Mean Corpuscular Hemoglobin 30.9 pg (27-33); Mean Platelet Volume 10.8 fL (7.4-10.4); Monocytes # 1.9 10^3/uL (0.2-0.9); Monocytes % 15.7 %; Neutrophils # 8.99 10^3/uL (1.8-7.7); Neutrophils % 72.6 %; Nucleated Red Blood Cells % 0 %; Platelet Count 186 10^3/cmm (157-399); Red Blood Count 3.01 10^6/uL (3.85-5.65); Red Cell Distribution Width 16.2 % (12.1-15.1); White Blood Count 12.38 10^3/uL (3.29-11.43)
--- NOTE | 2023-12-04 05:10 | P.PN_ITS ---
Subjective 2 Subjective: Resp panel is negative Hypertensive Vitals/I&O/Wt Last Vital Signs Temp 89.6 F L 12/03/23 10:28 Pulse 81 12/03/23 16:34 Resp 17 12/03/23 12:30 BP 207/91 12/03/23 12:30 Pulse Ox 100 12/03/23 16:34 O2 Del Method BiPAP 12/03/23 16:54 FiO2 50 12/03/23 16:34 Weight last 48 hrs Weight 76.657 kg Weight 76.657 kg Weight 68.039 kg Physical Exam 2 Narrative: Patient is awake and alert Currently on 2 L nasal cannula Hypertensive No active chest pain No sign of significant fluid overload Pleasant and cooperative S1, S2 Data 12/03/23 10:33 12/03/23 10:33 Micro: Microbiology 12/03/23 11:20 Blood Culture - Preliminary Blood SPECIMEN COLLECTED 12/03/23 11:17 Blood Culture - Preliminary Blood SPECIMEN COLLECTED A&P Assessment and plan (1) Acute exacerbation of CHF (congestive heart failure): (2) NSTEMI (non-ST elevated myocardial infarction): (3) Chronic gout: Plan Non-STEMI No active chest pain Will follow-up with echo D-dimer is remarkably high Will request venous Doppler Currently patient is on therapeutic heparin dose Will follow-up with cardiology recommendations Once patient is euvolemic may benefit from a stress test, which can be done outpatient No active chest pain End-stage renal disease Wednesday Nephro consulted Plan for dialysis on Wednesday Hemoglobin A1c 4.6 Wean off nitroglycerin drip DNR/DNI Renal dialysis diet TSH is normal Respiratory panel is negative Hypertensive urgency: Anticipate improvement after dialysis Attestations 2 Medical Necessity Statement*: Continue medical management Diagnoses Acute exacerbation of CHF (congestive heart failure) I50.9 NSTEMI (non-ST elevated myocardial infarction) I21.4 Chronic gout [id number]
[2023-12-04 05:36] LABS: Anion Gap 19.7 (5-19); Blood Urea Nitrogen 30 mg/dL (8-23); Calcium 9.3 mg/dL (8.5-10.5); Carbon Dioxide 28 mmol/L (22-29); Chloride 95 mmol/L (98-107); Creatinine Clr Calc Pharmacy 10.5372; Glucose 113 mg/dL (65-115); Magnesium 2.2 mg/dL (1.7-2.3); Osmolality Calculated 293 mOsm/kg (285-295); Partial Thromboplastin Time 94.6 SECONDS (23.9-36.7); Potassium 4.7 mmol/L (3.5-5.1); Sodium 138 mmol/L (136-145)
[2023-12-04 05:54] LABS: Hepatitis B Surface AB 57.3 (11.5-1000); Hepatitis B Surface Antigen Non-Reactive (Nonreactive)
--- NOTE | 2023-12-04 07:07 | P.CONIM_ITS ---
Providers/Reason For Consult 2 Consulting Physician/Specialty*: [facility]/Nephrology Reason for Consult*: esrd Attending Physician: Jarret Fish MD Primary Care Provider: Humera Mayen MD History of Present Illness History of Present Illness Fermin Patel is a 83 year old male Patient is an 83-year-old male with past medical history of end-stage renal disease on dialysis per TTS schedule, hypertension dyslipidemia diastolic CHF vitamin D deficiency, coronary artery disease presented with chest pain and shortness of breath. Last hemodialysis was on . Lab data significant for elevated WBC count of 17,000, hemoglobin of 10.4, has troponin elevated. Review of Systems 2 Narrative: negative Medications/Allergies Home Medications Medication Instructions Recorded Confirmed Last Taken Type allopurinol 100 mg tablet 100 mg PO DAILY 10/08/20 12/03/23 12/02/23 History calcium acetate 667 mg tablet 667 mg PO BID 10/08/20 12/03/23 12/02/23 History atorvastatin 40 mg tablet 20 mg PO QPM 12/03/23 12/03/23 12/02/23 History carvedilol 25 mg tablet 25 mg PO BID 12/03/23 12/03/23 12/02/23 History cholecalciferol (vitamin D3) 50 100 mcg PO DAILY 12/03/23 12/03/23 12/02/23 History mcg (2,000 unit) tablet (Vitamin D3) lidocaine 5 % topical ointment 1 applic topical TID PRN Pain 12/03/23 12/03/23 Unknown History lisinopril 20 mg tablet 20 mg PO BEDTIME 12/03/23 12/03/23 12/02/23 History nifedipine 60 mg tablet,extended 120 mg PO DAILY 12/03/23 12/03/23 12/02/23 History release 24 hr omeprazole 40 mg capsule,delayed 40 mg PO QAM 12/03/23 12/03/23 12/02/23 History release vitamin B complex-vitamin C-folic 1 tab PO DAILY 12/03/23 12/03/23 12/02/23 History acid 0.8 mg tablet (Agnieszka-Kiley) Allergies Allergy/AdvReac Type Severity Reaction Status Date / Time No Known Allergies Allergy Verified 03/28/23 12:15 Current Medications Generic Name Dose Route Start Last Admin Trade Name Freq PRN Reason Stop Dose Admin Carvedilol 25 mg 12/03/23 18:00 12/03/23 18:08 Carvedilol 25 Mg Tablet PO 25 mg BID GUMARO Administration Morphine Sulfate 1 mg 12/03/23 22:56 12/03/23 23:16 Morphine 4 Mg/Ml Sdv 1 Ml IVP 1 mg Q3H PRN Administration SEVERE PAIN PFSH Acute 2 PFSH: Medical History (Updated 12/04/23 @ 08:06 by Timur Matthews MD) Pleural effusion Elevated troponin ESRD (end stage renal disease) Hypertension Hyperlipidemia Abnormal stress test COVID-19 Chronic gout Vitamin D deficiency Vitamin B12 deficiency (dietary) anemia History of TIA (transient ischemic attack) Surgical History S/P hemodialysis catheter insertion History of left knee surgery History of right knee surgery Family History Denies family history of Anesthesia complication Bleeding disorder Social History Smoking and tobacco/nicotine status: former use of tobacco/nicotine Alcohol intake: never Substance/Drug Use: never Vitals/I&O/Wt Last Vital Signs Temp 97.2 F L 12/03/23 22:20 Pulse 67 12/04/23 06:00 Resp 19 H 12/04/23 06:00 BP 142/58 12/04/23 06:00 Pulse Ox 96 12/04/23 06:00 O2 Del Method BiPAP 12/03/23 22:20 O2 Flow Rate 5 12/03/23 19:30 FiO2 40 12/04/23 03:37 12/03/23 12/04/23 12/04/23 22:59 06:59 14:59 Intake Total 159.867 / 159.867 511.45 / 671.317 Output Total 120 / 120 Balance 39.867 / 39.867 511.45 / 551.317 Weight last 48 hrs Weight 76.657 kg Weight 76.657 kg Weight 68.039 kg Physical Exam 2 Narrative: Awake, alert, no distress HEENT S1-S2 regular rate and rhythm per report Lungs clear per report No pedal edema. Data 12/04/23 04:57 12/04/23 04:57 Micro: Microbiology 12/03/23 11:20 Blood Culture - Preliminary Blood SPECIMEN COLLECTED 12/03/23 11:17 Blood Culture - Preliminary Blood SPECIMEN COLLECTED A&P Assessment and plan (1) ESRD (end stage renal disease): 1. End-stage renal disease: On TTS schedule as outpatient, HD today 2. NSTEMI, management per cardiology 3. Anemia: Hemoglobin 9.3, [facility] with HD 4. History of hypertension Consult Attestations 2 Medical Necessity Statement: Per medicine team Coding Level of Care Code Acute Code for Chg Fwd Diagnoses ESRD (end stage renal disease) N18.6
--- NOTE | 2023-12-04 08:02 | P.PN_ITS ---
Subjective 2 Subjective: Fermin is much improved. He he is back to baseline as it pertains to his breathing he says. He feels significantly better. His blood pressure is still high but improved. He is off the intravenous nitro. He has been changed to subcutaneous heparin. Currently his medications include carvedilol, lisinopril and nifedipine. I believe he is scheduled for dialysis today. Vitals/I&O/Wt Last Vital Signs Temp 97.2 F L 12/03/23 22:20 Pulse 80 12/04/23 07:44 Resp 18 12/04/23 07:44 BP 142/58 12/04/23 06:00 Pulse Ox 92 12/04/23 07:44 O2 Del Method Nasal Cannula 12/04/23 07:44 O2 Flow Rate 4 12/04/23 07:44 FiO2 40 12/04/23 03:37 12/03/23 12/04/23 12/04/23 22:59 06:59 14:59 Intake Total 159.867 / 159.867 511.45 / 671.317 Output Total 120 / 120 Balance 39.867 / 39.867 511.45 / 551.317 Weight last 48 hrs Weight 169 lb Weight 169 lb Weight 150 lb Physical Exam 2 Narrative: GENERAL: In general he looks good HEENT: Exam within normal limits. NECK: Supple without jugular vein distention. The carotid upstroke is normal without bruits. BACK: Exam normal. LUNGS: Clear. HEART: Regular rate and rhythm. ABDOMEN: Benign without organomegaly or tenderness. EXTREMITIES: No edema. NEUROLOGIC: Exam normal. SKIN: Unremarkable. Data 12/04/23 04:57 12/04/23 04:57 Micro: Microbiology 12/03/23 11:20 Blood Culture - Preliminary Blood SPECIMEN COLLECTED 12/03/23 11:17 Blood Culture - Preliminary Blood SPECIMEN COLLECTED A&P Assessment and plan (1) Acute exacerbation of CHF (congestive heart failure): Qualifiers: Heart failure type: diastolic Qualified Code(s): I50.33 - Acute on chronic diastolic (congestive) heart failure (2) S/P hemodialysis catheter insertion: (3) Chronic gout: (4) Hyperlipidemia: (5) Hypertension: Qualifiers: Hypertension type: secondary to other renal disorders Qualified Code(s): I15.1 - Hypertension secondary to other renal disorders (6) Elevated troponin: (7) ESRD (end stage renal disease): (8) Pleural effusion: Plan Clinically he is much improved. His lungs are clear today. His oxygen saturations are better. His blood pressure is better. He does still need fairly aggressive volume removal by dialysis. He is making a little urine but not a lot. Attestations 2 Medical Necessity Statement*: Hospitalization for management of acute heart failure and hypoxemia and Moderate Time for a total of 30 minutes, includes reviewing past or interval history, examining/interviewing patient, counseling patient/family/other support, updating patient/family/other support, discussing plan of care with staff, communicating with other healthcare providers and documenting encounter Diagnoses Acute on chronic diastolic congestive heart failure I50.33 Heart failure type: diastolic S/P hemodialysis catheter insertion Z99.2 Chronic gout [id number] Hyperlipidemia E78.5 Hypertension secondary to other renal disorders I15.1 Hypertension type: secondary to other renal disorders Elevated troponin R77.8 ESRD (end stage renal disease) N18.6 Pleural effusion J90
[2023-12-04] MEDS: carvedilol 25 mg Tablet PO ×2 (08:13→17:45)
[2023-12-04] MEDS: allopurinol 100 mg Tablet PO (08:13)
[2023-12-04] MEDS: NIFEdipine ER (24 hr) 30 mg Tablet 120 MG PO (08:13)
[2023-12-04] MEDS: lisinopril 20 mg Tablet PO ×2 (08:13→20:15)
[2023-12-04] MEDS: heparin 5,000 unit/mL INJ 1 mL 5000 UNIT SUBCUT ×2 (08:14→20:15)
--- NOTE | 2023-12-04 10:38 | PC.NURSE ---
moved to dialysis room for treatment on 4lnc per wheel chair no distress at this time transfered from bed [facility]
--- NOTE | 2023-12-04 10:52 | PC.HD ---
Heparin 1000 units loading dose administered via venous needle of RAVG at 1014 per counsellors's orders. Upon pre-dialysis assessment, patient's O2 saturations were noted to be 87% on 4L NC. RT notified; RT came to assess patient, increased O2 to 6L and advised patient to inform this RN if he became increasingly short of breath. Patient currently resting with eyes open in no apparent distress.
--- NOTE | 2023-12-04 14:18 | PC.NURSE ---
back from dialysis
[2023-12-05] VITALS (10 sets, daily range): BP systolic 100–116; BP diastolic 41–53; PULSE 62–79; RESP 16–18; TEMP 36.5–37.5; O2SAT 88–93
[2023-12-05 05:35] LABS: Basophils % 0.2 %; Eosinophils % 0.2 %; Hematocrit 25.6 % (37-53); Lymphocytes # 1.1 10^3/uL (0.8-4.8); Lymphocytes % 10.7 %; Mean Corpuscular HGB Conc 31.6 g/dL (30-55); Mean Corpuscular Hemoglobin 31.4 pg (27-33); Mean Corpuscular Volume 99.2 fl (82-101); Mean Platelet Volume 11.6 fL (7.4-10.4); Monocytes # 1.5 10^3/uL (0.2-0.9); Monocytes % 14.4 %; Neutrophils # 7.49 10^3/uL (1.8-7.7); Neutrophils % 73.8 %; Nucleated Red Blood Cells % 0 %; Platelet Count 184 10^3/cmm (157-399); Red Blood Count 2.58 10^6/uL (3.85-5.65); Red Cell Distribution Width 15.9 % (12.1-15.1); White Blood Count 10.15 10^3/uL (3.29-11.43)
[2023-12-05 05:59] LABS: Blood Urea Nitrogen 25 mg/dL (8-23); Calcium 9.1 mg/dL (8.5-10.5); Carbon Dioxide 27 mmol/L (22-29); Chloride 99 mmol/L (98-107); Creatinine Clr Calc Pharmacy 12.9128; Glucose 92 mg/dL (65-115); Osmolality Calculated 290 mOsm/kg (285-295); Sodium 138 mmol/L (136-145)
--- NOTE | 2023-12-05 07:43 | P.PN_ITS ---
Subjective 2 Subjective: s/p HD yesterday Medications: Reviewed: Yes Vitals/I&O/Wt Last Vital Signs Temp 97.9 F 12/05/23 03:55 Pulse 63 12/05/23 05:26 Resp 18 12/05/23 03:55 BP 108/52 12/05/23 03:55 Pulse Ox 91 12/05/23 03:55 O2 Del Method Nasal Cannula 12/04/23 19:41 O2 Flow Rate 3 12/04/23 20:00 FiO2 40 12/04/23 03:37 12/04/23 12/05/23 12/05/23 22:59 06:59 14:59 Intake Total 540 / 1020 360 / 1380 Output Total 3400 / 3400 100 / 3500 Balance -2860 / -2380 260 / -2120 Weight last 48 hrs Weight 74.525 kg Weight 72.6 kg Weight 76.657 kg Weight 76.657 kg Weight 76.657 kg Weight 68.039 kg Physical Exam 2 Narrative: Awake, alert, no distress HEENT S1-S2 regular rate and rhythm per report Lungs clear per report No pedal edema. Data 12/05/23 04:11 12/05/23 04:11 Micro: Microbiology 12/03/23 11:17 Blood Culture - Preliminary Blood NEGATIVE TO DATE 12/03/23 11:20 Blood Culture - Preliminary Blood NEGATIVE TO DATE 12/03/23 12:12 Urine Culture - Preliminary Urine,Clean Catch A&P Assessment and plan (1) ESRD (end stage renal disease): 1. End-stage renal disease: On TTS schedule as outpatient, s/p HD yesterday 2. NSTEMI, management per cardiology 3. Anemia: Hemoglobin 8.1 , [facility] with HD 4. History of hypertension Attestations 2 Medical Necessity Statement*: per [facility] Coding Level of Care Code Acute Code for Chg Fwd Diagnoses ESRD (end stage renal disease) N18.6
[2023-12-05] MEDS: carvedilol 25 mg Tablet PO (08:38)
[2023-12-05] MEDS: allopurinol 100 mg Tablet PO (08:38)
[2023-12-05] MEDS: NIFEdipine ER (24 hr) 30 mg Tablet 120 MG PO (08:38)
[2023-12-05] MEDS: heparin 5,000 unit/mL INJ 1 mL 5000 UNIT SUBCUT ×2 (08:39→20:12)
--- NOTE | 2023-12-05 08:55 | P.PN_ITS ---
Subjective 2 Subjective: Fermin states that he is much improved today. He did not require the BiPAP last evening for sleep. He states he is back to normal. He underwent hemodialysis yesterday with a -2600 mL fluid balance. Total dialysis output was 3300 mL. His respiratory status is much improved. His blood pressures have come down toward normal. Vitals/I&O/Wt Last Vital Signs Temp 97.7 F 12/05/23 08:25 Pulse 79 12/05/23 08:27 Resp 16 12/05/23 08:27 BP 113/41 12/05/23 08:25 Pulse Ox 90 12/05/23 08:27 O2 Del Method Nasal Cannula 12/05/23 08:27 O2 Flow Rate 4 12/05/23 08:27 FiO2 40 12/04/23 03:37 12/04/23 12/05/23 12/05/23 22:59 06:59 14:59 Intake Total 540 / 1020 360 / 1380 Output Total 3400 / 3400 100 / 3500 Balance -2860 / -2380 260 / -2120 Weight last 48 hrs Weight 164 lb 4.8 oz Weight 160 lb 0.889 oz Weight 169 lb Weight 169 lb Weight 169 lb Weight 150 lb Physical Exam 2 Narrative: GENERAL: Generally looks and feels well HEENT: Exam within normal limits. [] NECK: Supple without jugular vein distention. The carotid upstroke is normal without bruits. [] BACK: Exam normal. [] LUNGS: Clear. [] HEART: Regular rate and rhythm. [] ABDOMEN: Benign without organomegaly or tenderness. [] EXTREMITIES: No edema. [] NEUROLOGIC: Exam normal. [] SKIN: Unremarkable. [] Data 12/05/23 04:11 12/05/23 04:11 Micro: Microbiology 12/03/23 11:17 Blood Culture - Preliminary Blood NEGATIVE TO DATE 12/03/23 11:20 Blood Culture - Preliminary Blood NEGATIVE TO DATE 12/03/23 12:12 Urine Culture - Preliminary Urine,Clean Catch A&P Assessment and plan (1) Hyperlipidemia: (2) Hypertension: Qualifiers: Hypertension type: secondary to other renal disorders Qualified Code(s): I15.1 - Hypertension secondary to other renal disorders (3) Elevated troponin: (4) Acute exacerbation of CHF (congestive heart failure): Qualifiers: Heart failure type: diastolic Qualified Code(s): I50.33 - Acute on chronic diastolic (congestive) heart failure (5) ESRD (end stage renal disease): (6) S/P hemodialysis catheter insertion: Plan He is much improved. From my standpoint he could go home. Medications as prescribed. Follow-up as previously arranged. Attestations 2 Medical Necessity Statement*: Able to be discharged today and Moderate Time for a total of 30 minutes, includes reviewing past or interval history, examining/interviewing patient, counseling patient/family/other support, updating patient/family/other support, discussing plan of care with staff, communicating with other healthcare providers and documenting encounter Diagnoses Hyperlipidemia E78.5 Hypertension secondary to other renal disorders I15.1 Hypertension type: secondary to other renal disorders Elevated troponin R77.8 Acute on chronic diastolic congestive heart failure I50.33 Heart failure type: diastolic ESRD (end stage renal disease) N18.6 S/P hemodialysis catheter insertion Z99.2
--- NOTE | 2023-12-05 09:32 | P.PN_ITS ---
Subjective 2 Subjective: No overnight events Vitals/I&O/Wt Last Vital Signs Temp 97.7 F 12/05/23 08:25 Pulse 79 12/05/23 08:27 Resp 16 12/05/23 08:27 BP 113/41 12/05/23 08:25 Pulse Ox 90 12/05/23 08:27 O2 Del Method Nasal Cannula 12/05/23 08:27 O2 Flow Rate 4 12/05/23 08:27 FiO2 40 12/04/23 03:37 12/04/23 12/05/23 12/05/23 22:59 06:59 14:59 Intake Total 540 / 1020 360 / 1380 480 / 480 Output Total 3400 / 3400 100 / 3500 Balance -2860 / -2380 260 / -2120 480 / 480 Weight last 48 hrs Weight 74.525 kg Weight 72.6 kg Weight 76.657 kg Weight 76.657 kg Weight 76.657 kg Weight 68.039 kg Physical Exam 2 Narrative: In supine Currently on 3 L Pleasant cough Volume overload state improving No active chest pain S1, S2 Data 12/05/23 04:11 12/05/23 04:11 Micro: Microbiology 12/03/23 11:17 Blood Culture - Preliminary Blood NEGATIVE TO DATE 12/03/23 11:20 Blood Culture - Preliminary Blood NEGATIVE TO DATE 12/03/23 12:12 Urine Culture - Preliminary Urine,Clean Catch A&P Assessment and plan (1) Acute exacerbation of CHF (congestive heart failure): Qualifiers: Heart failure type: diastolic Qualified Code(s): I50.33 - Acute on chronic diastolic (congestive) heart failure (2) Hypertension: Qualifiers: Hypertension type: secondary to other renal disorders Qualified Code(s): I15.1 - Hypertension secondary to other renal disorders (3) NSTEMI (non-ST elevated myocardial infarction): (4) ESRD (end stage renal disease): Plan Plan to discharge him after stress test tomorrow Hemodynamically stable Volume overload improved Pleasant cough Hemoglobin stable No active chest pain Patient is in agreement Attestations 2 Medical Necessity Statement*: Discharge tomorrow after stress test Coding Level of Care Code Acute Code for [facility] Fwd Diagnoses Acute on chronic diastolic congestive heart failure I50.33 Heart failure type: diastolic 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
--- NOTE | 2023-12-05 09:33 | ECG_ITS ---
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 Interpretive Statements NAME OF STUDY: LEXISCAN SESTAMIBI STRESS TEST INDICATION: Unstable Angina PROCEDURE: At the baseline, the EKG revealed normal sinus rhythm with right bundle branch block pattern. Diffuse T wave inversions in the anterolateral and inferior leads.. The baseline heart was 70 bpm with a blood pressue of 129/83 mm of Hg Lexiscan was infused over a period of 20 seconds. A total of 0.4 milligrams of Lexiscan was infused. The stress phase was continued for a total of 5 minutes. Heart rate at the end of the stress phase was 68 bpm with a blood pressure 114/60 mm of Hg. The EKG at the peak infusion revealed no significant changes. Sestamibi was injected 20 seconds after the Lexiscan infusion. Heart rate at the end of the recovery phase was 82 bpm with a blood pressure of 125/60 mm of Hg. CONCLUSION: 1. No significant EKG changes with the LexiScan infusion 2. No LexiScan induced chest pain or cardiac arrhythmia 3. Normal blood pressure and heart rate response 4. Sestamibi/sestamibi perfusion scan pending; see separate report. Electronically Signed On 12-11-2023 13:50:22 CDT by Jovita Infante M.D. [id number]
[2023-12-05] MEDS: lisinopril 20 mg Tablet PO (20:12)
[2023-12-06] VITALS (10 sets, daily range): BP systolic 103–129; BP diastolic 42–66; PULSE 62–79; RESP 17–18; TEMP 36.6–37.2; O2SAT 80–100
--- NOTE | 2023-12-06 06:46 | PM.PN ---
Subjective Subjective: no new c/o Medications: Reviewed: Yes Vitals/I&O/Wt Last Vital Signs Temp 98.2 F 12/06/23 04:00 Pulse 67 12/06/23 05:34 Resp 18 12/06/23 04:00 BP 120/60 12/06/23 04:00 Pulse Ox 100 12/06/23 04:00 O2 Del Method BiPAP 12/06/23 04:00 O2 Flow Rate 4 12/06/23 00:00 FiO2 40 12/06/23 02:50 12/05/23 12/05/23 12/06/23 14:59 22:59 06:59 Intake Total 960 / 960 290 / 1250 50 / 1300 Balance 960 / 960 290 / 1250 50 / 1300 Weight last 48 hrs Weight 76.839 kg Weight 74.525 kg Weight 72.6 kg Weight 76.657 kg Physical Exam Narrative: Awake, alert, no distress HEENT S1-S2 regular rate and rhythm per report Lungs clear per report No pedal edema. Data 12/05/23 04:11 12/05/23 04:11 Micro: Microbiology 12/03/23 12:12 Urine Culture - Final Urine,Clean Catch A&P Assessment and plan (1) ESRD (end stage renal disease): 1. End-stage renal disease: On TTS schedule as outpatient, s/p HD wednesday , next HD wednesday 2. NSTEMI, management per cardiology 3. Anemia: Hemoglobin 8.1 , JANIE with HD 4. History of hypertension Attestations Medical Necessity Statement*: per [facility] team Coding Level of Care Code Acute Code for [facility] Fwd Diagnoses ESRD (end stage renal disease) N18.6
--- NOTE | 2023-12-06 07:21 | PC.NURSE ---
Pt left floor for stress test at 0700.
[2023-12-06] MEDS: regadenoson 0.4 Mg/5 ml Syringe 0.400000000000000022 MG IVP (07:29)
[2023-12-06] MEDS: aminophylline 25 mg/mL SDV 10 mL IVP (07:37)
--- NOTE | 2023-12-06 07:39 | P.PN_ITS ---
Subjective 2 Subjective: Uneventful night. Undergoing stress testing Vitals/I&O/Wt Last Vital Signs Temp 98.2 F 12/06/23 04:00 Pulse 67 12/06/23 05:34 Resp 18 12/06/23 04:00 BP 120/60 12/06/23 04:00 Pulse Ox 100 12/06/23 04:00 O2 Del Method BiPAP 12/06/23 04:00 O2 Flow Rate 4 12/06/23 00:00 FiO2 40 12/06/23 02:50 12/05/23 12/06/23 12/06/23 22:59 06:59 14:59 Intake Total 290 / 1250 50 / 1300 480 / 480 Balance 290 / 1250 50 / 1300 480 / 480 Weight last 48 hrs Weight 169 lb 6.4 oz Weight 164 lb 4.8 oz Weight 160 lb 0.889 oz Weight 169 lb Physical Exam 2 Narrative: GENERAL: In general he looks and feels well HEENT: Exam within normal limits. NECK: Supple without jugular vein distention. The carotid upstroke is normal without bruits. BACK: Exam normal. LUNGS: Clear. HEART: Regular rate and rhythm. ABDOMEN: Benign without organomegaly or tenderness. EXTREMITIES: No edema. NEUROLOGIC: Exam normal. SKIN: Unremarkable. Data 12/05/23 04:11 12/05/23 04:11 Micro: Microbiology 12/03/23 12:12 Urine Culture - Final Urine,Clean Catch A&P Assessment and plan (1) Hyperlipidemia: (2) Hypertension: Qualifiers: Hypertension type: secondary to other renal disorders Qualified Code(s): I15.1 - Hypertension secondary to other renal disorders (3) Elevated troponin: (4) Acute exacerbation of CHF (congestive heart failure): Qualifiers: Heart failure type: diastolic Qualified Code(s): I50.33 - Acute on chronic diastolic (congestive) heart failure (5) ESRD (end stage renal disease): (6) Pleural effusion: Plan Seems to be doing well. Should be able to go home today. Unless there is significant Ischemic burden angiography is not indicated. 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
[2023-12-06] MEDS: allopurinol 100 mg Tablet PO (08:52)
[2023-12-06] MEDS: heparin 5,000 unit/mL INJ 1 mL 5000 UNIT SUBCUT (08:52)
[2023-12-06] MEDS: NIFEdipine ER (24 hr) 30 mg Tablet 120 MG PO (08:52)
[2023-12-06] MEDS: carvedilol 25 mg Tablet PO ×2 (08:52→17:24)
--- NOTE | 2023-12-06 08:58 | PC.NURSE ---
Patient returned to [facility] from stress test at 0845.
[2023-12-06] MEDS: acetaminophen 500 mg Tablet PO (09:13)
--- NOTE | 2023-12-06 09:18 | PC.CHAP ---
Pastoral Care Encounter/Spiritual Assessment Type of Contact [] Declined administrative services manager visit [] Patient/Family/Request visit [] Outpatient visit [] Follow-up visit [] Physician referral [] Code/Alert [x] Routine visit [] Staff referral [] Actively dying [] Patient sleeping [] Family support [] [x] Out of room [] Palliative care [] [] Receiving care in room [] Pre-surgical visit [] Trauma [] Long length of stay [] ICU visit [] Other: Relational/Emotional Strength [] Patient feels connected with others/family/visitors/staff [] Distress [] Loneliness/isolation [] Abandonment Spirituality of Patient [] Person of Divya [] Attends Latter-Day of their Divya [] Believes in Prayer [] Reads Bible or Hinduism materials [] There are Spiritual issues to be addressed Inspector Publications Interventions [] Prayer [] Active listening [] Non-anxious presence [] Spiritual/emotional support [] Crisis/trauma care [] Spiritual counseling [] Bereavement support [] Provided bereavement packet [] Provided Bible/devotional materials [] Provided toy/stuffed animal, coloring book to patient or family member [] Provided Communion [] Anointing/[place] [] Salvation [] Completed spiritual assessment [] Other: Impact on Illness or Injury [] Angry [] Fearful [] Anxious [] Often cries [] Exhaustion [] Unable to work [] Unable to attend christianity [] Unable to walk/stand [] Unable to read [] Unable to drive [] Unable to eat/drink [] Unable to sleep [] Unable to be with family [] Patient intubated [] Other: Summary Time spent with patient
--- NOTE | 2023-12-06 09:33 | NMCV_ITS ---
NM ravi perf SPECT r/s* [id number] Fermin Patel Age: 83 Gender: M : 1940 Exam Date: 12/06/2023 06:12 Ordering Phys: Jarret Fish MD Technologist: MONIE Cedeno Exam Location: [facility] Indications: Unstable angina STRESS TEST Please see separate stress test report in [facility] for full findings IMAGE PROTOCOL Rest/Stress 1 Lexiscan Day Radiopharmaceutical Dose (mCi) Administration Site Administered by Rest: Tc-99m 10.9 IV MONIE Cedeno Sestamibi Stress:Tc-99m 32.9 IV MONIE Cedeno Sestamibi Rest: 06-Dec-2023 60 Discovery 630 Stress: 06-Dec-2023 30 Discovery 630 0.4mg Lexiscan. Images obtained in supine and prone position. SPECT RESULTS Technical Quality: Good Raw Data Analysis: Subdiaphragmatic activity Image Corrections: No attenuation or motion correction applied Summed Stress Score: 11 Summed Rest Score: 11 Summed Difference Score: 1 PERFUSION FINDINGS Small to moderate area of moderate to severely decreased tracer uptake involving the involving all the apical segments including the LV apex with a slight reversibility in the apical lateral segment FUNCTIONAL RESULTS (calculated via Gated SPECT) Stress Image LV EF (%): 43 Stress EDV (mL):188 TID: 0.99 Stress ESV (mL):107 FUNCTIONAL FINDINGS: Segmental wall motion analysis revealed moderate hypokinesia of the LV apex IMPRESSIONS 1. Myocardial perfusion imaging revealing small to moderate area of moderate to severely decreased persistent tracer uptake involving all the apical segments with a small area reversibility in the apical lateral segment region, suggestive of myocardial scarring in the distribution of all the 3 coronary arteries predominantly involving the distal segments of the left anterior descending and circumflex arteries with a subtle area of preinfarction ischemia. 2. Slightly diminished left ventricular ejection fraction of 43%. 3. Segmental wall motion analysis revealed moderate hypokinesia of the LV apex 4. Moderately dilated LV cavity with an end-systolic volume of 107 ml. Compared to the study from 05/12/2022, there is dilatation of the LV cavity with drop in the LV ejection fraction. But the ischemic burden appears to be less. Dr Jovita Infante MD FAC (Electronically Signed) Final Date: 06 December 2023 09:23 S
--- NOTE | 2023-12-06 10:38 | PC.SOCIAL ---
IMM Updated Updated pt on IMM. No questions voiced. Provided pt a copy. Initialed, dated, & timed a copy & placed in chart.
--- NOTE | 2023-12-06 11:28 | PM.DCS ---
Discharge Providers Date of Admission: 12/03/23 13:00 Date of Discharge: December 06, 2023 Attending Provider at Admission: Jarret Fish MD Attending Provider at Discharge: Jarret Fish MD Primary Care Provider: Humera Mayen MD Diagnoses at Discharge Discharge Diagnosis (1) Hyperlipidemia: Status: Acute (2) Hypertension: Status: Acute Qualifiers: Hypertension type: secondary to other renal disorders Qualified Code(s): I15.1 - Hypertension secondary to other renal disorders (3) Elevated troponin: Status: Acute (4) Acute exacerbation of CHF (congestive heart failure): Status: Acute Qualifiers: Heart failure type: diastolic Qualified Code(s): I50.33 - Acute on chronic diastolic (congestive) heart failure (5) ESRD (end stage renal disease): Status: Acute (6) Pleural effusion: Status: Acute Reason for Visit Reason for Visit: Sob Hospital Course Hospital Course 83-year male who was admitted to the hospital for hypertensive emergency, volume overloaded state, non-STEMI, patient gets dialyzed Wednesday, his blood pressure improved after dialysis, troponins were high he was started on ACS protocol cardiology was consulted, cardiology recommended stress test, which is showing small area of ischemia which is less than 2021 no further workup has been recommended, patient has not experienced any chest pain, this is likely type II DE, blood pressure has improved, volume overloaded state has significantly improved. Echo 60% EF. Patient will be discharged home with stable hemodynamics. He will continue his dialysis TTS. Patient is requiring 3 to 4 L of oxygen the hospital does not use oxygen at home, will request home oxygen evaluation before discharge Physical Exam Narrative: Pleasant cooperative Volume overload state improved Pleasant cooperative Awake and alert S1, S2 Discharge Data Studies Completed and Pending Completed Studies During Hospitalization Category Date Time Status Sestamibi Stress Test Request Routine Exams 12/05/23 09:33 Draft XR chest 1V portable [id number] Stat Exams 12/03/23 10:28 Completed NM ravi perf SPECT r/s* [id number] Routine Nuc Med 12/06/23 09:33 Completed CV. echo limited [id number] Stat Ultrasound 12/03/23 12:52 Completed Pending at discharge Category Date Time Status Blood Culture Stat Lab 12/03/23 11:20 Results Radiology Impressions Chest X-Ray 12/03/23 10:28 IMPRESSION: 1. Congestive heart failure pattern with small RIGHT basal pleural effusion. Laboratory Results WBC 10.15 10^3/uL (3.29-11.43) 12/05/23 04:11 RBC 2.58 10^6/uL (3.85-5.65) L 12/05/23 04:11 Hgb 8.10 g/dL (11.27-16.99) L 12/05/23 04:11 Hct 25.6 % (37-53) L 12/05/23 04:11 MCV 99.2 fl (82-101) 12/05/23 04:11 MCH 31.4 pg (27-33) 12/05/23 04:11 MCHC 31.6 g/dL (30-55) 12/05/23 04:11 RDW 15.9 % (12.1-15.1) H 12/05/23 04:11 Plt Count 184 10^3/cmm (157-399) 12/05/23 04:11 MPV 11.6 fL (7.4-10.4) H 12/05/23 04:11 Neut % (Auto) 73.8 % 12/05/23 04:11 Lymph % (Auto) 10.7 % 12/05/23 04:11 [place] % (Auto) 14.4 % 12/05/23 04:11 Eos % (Auto) 0.2 % 12/05/23 04:11 Baso % (Auto) 0.2 % 12/05/23 04:11 Neut # (Auto) 7.49 10^3/uL (1.8-7.7) 12/05/23 04:11 Lymph # (Auto) 1.1 10^3/uL (0.8-4.8) 12/05/23 04:11 Marathon # (Auto) 1.5 10^3/uL (0.2-0.9) H 12/05/23 04:11 Eos # (Auto) 0.0 10^3/uL (0.0-0.8) 12/05/23 04:11 Baso # (Auto) 0.0 10^3/uL (0.0-0.1) 12/05/23 04:11 Nucleated RBC % (auto) 0 % 12/05/23 04:11 Nucleated RBCs # 0.0 /100WBC 12/05/23 04:11 APTT 94.6 SECONDS (23.9-36.7) H 12/04/23 04:57 D-Dimer 3.31 ug/mLFEU (0-0.59) H 12/03/23 10:33 Specimen Type Arterial 12/03/23 12:44 Sample Site Radial, left 12/03/23 12:44 ABG pH 7.48 (7.35-7.45) H 12/03/23 12:44 ABG pCO2 39.0 mmHg (35-45) 12/03/23 12:44 ABG pO2 80.1 mmHg (80.0-100.0) 12/03/23 12:44 ABG PO2/FiO2 Ratio 0 12/03/23 12:44 ABG HCO3 29.2 mmol/L (22-26) H 12/03/23 12:44 ABG O2 Saturation 94.2 12/03/23 12:44 ABG Base Excess 5.4 mmol/L (-2.0-2.0) H 12/03/23 12:44 Abisai Test Pos 12/03/23 12:44 A-a O2 Gradient 29.8 mmHg (5-10) H 12/03/23 12:44 Hematocrit 30.3 % (42-52) L 12/03/23 12:44 Hgb O2 Saturation 93.3 % (95-100) L 12/03/23 12:44 Carboxyhemoglobin 0.1 %THgb (0.4-20.1) L 12/03/23 12:44 Methemoglobin 0.8 % (0.4-1.5) 12/03/23 12:44 Total Hemoglobin 9.9 g/dL (14-18) L 12/03/23 12:44 Sodium 142.0 mmol/L (131-143) 12/03/23 12:44 Potassium 4.1 mmol/L (3.5-5.0) 12/03/23 12:44 Glucose 121.0 mg/dL (70-115) H 12/03/23 12:44 Ionized Calcium 1.1 mmol/L (1.1-1.4) 12/03/23 12:44 O2 Delivery Device Bipap 12/03/23 12:44 O2 Liters/Min 3.0 % 12/03/23 10:30 FiO2 50.0 % 12/03/23 12:44 Electrocardiograph Operator ID Le 12/03/23 12:44 Sodium 138 mmol/L (136-145) 12/05/23 04:11 Potassium 4.0 mmol/L (3.5-5.1) 12/05/23 04:11 Chloride 99 mmol/L (98-107) 12/05/23 04:11 Carbon Dioxide 27 mmol/L (22-29) 12/05/23 04:11 Anion Gap 16.0 (5-19) 12/05/23 04:11 BUN 25 mg/dL (8-23) H 12/05/23 04:11 Creatinine 4.6 mg/dL (0.7-1.2) H 12/05/23 04:11 GFR Calculation Not Reportable 12/05/23 04:11 Glucose 92 mg/dL (65-115) 12/05/23 04:11 POC Glucose 125 mg/dL (70-110) H 12/03/23 16:28 Estimat Average Glucose 85 12/03/23 10:33 Hemoglobin A1c 4.6 % (4.0-6.0) 12/03/23 10:33 Calculated Osmolality 290 mOsm/kg (285-295) 12/05/23 04:11 Lactic Acid 1.6 mmol/L (0.5-2.2) 12/03/23 10:33 Calcium 9.1 mg/dL (8.5-10.5) 12/05/23 04:11 Magnesium 2.2 mg/dL (1.7-2.3) 12/04/23 04:57 Total Bilirubin 0.6 mg/dL (0.15-1.2) 12/03/23 10:33 AST 20 U/L (0-40) 12/03/23 10:33 ALT 9 U/L (0-41) 12/03/23 10:33 Alkaline Phosphatase 103 U/L (40-130) 12/03/23 10:33 Troponin T Baseline 90 ng/L (0-15) H 12/03/23 10:33 Troponin T 120 Minute 129.3 ng/L (0-15) H 12/03/23 12:16 Delta Troponin T 39.3 ABS# (0-10) H* 12/03/23 12:16 NT-Pro-B Natriuret Pep [id number] pg/mL (0-450) H 12/03/23 10:33 Total Protein 7.8 g/dL (6.6-8.7) 12/03/23 10:33 Albumin 4.7 g/dL (3.5-5.2) 12/03/23 10:33 Globulin 3.1 g/dL (1.3-4.6) 12/03/23 10:33 Procalcitonin 0.89 ng/mL (0-0.5) H 12/03/23 12:16 TSH 3.61 uIU/mL (0.27-4.20) 12/03/23 10:33 Urine Color Yellow (Yellow) 12/03/23 12:12 Urine Appearance Clear (CLEAR) 12/03/23 12:12 Urine pH 9 (5-7) H 12/03/23 12:12 Ur Specific Moran 1.020 (1.005-1.030) 12/03/23 12:12 Urine Protein 2+ (Negative) H 12/03/23 12:12 Urine Glucose (UA) Norm (Normal) 12/03/23 12:12 Urine Ketones Negative (Negative) 12/03/23 12:12 Urine Blood 3+ (Negative) H 12/03/23 12:12 Urine Nitrate Negative (Negative) 12/03/23 12:12 Urine Bilirubin Neg (Negative) 12/03/23 12:12 Prot Sulfosalicylic Acd Positive (Negative) 12/03/23 12:12 Urine Urobilinogen Norm mg/dL (Negative) 12/03/23 12:12 Ur Leukocyte Esterase Negative (Negative) 12/03/23 12:12 Urine RBC >100 /hpf (0-2) 12/03/23 12:12 Urine WBC 0-4 /hpf (0-5) H 12/03/23 12:12 Ur Squamous Epith Cells 0-4 /hpf (0-5) H 12/03/23 12:12 Amorphous Sediment Not Reportable 12/03/23 12:12 Urine Bacteria None /hpf (NONE) 12/03/23 12:12 Urine Mucus None /hpf 12/03/23 12:12 Adenovirus (PCR) Not detected (NOT DETECT) 12/03/23 12:13 C. pneumoniae DNA (PCR) Not detected (NOT DETECT) 12/03/23 12:13 Coronavirus 229E (PCR) Not detected (NOT DETECT) 12/03/23 12:13 Hep Bs Antigen Non-reactive (Nonreactive) 12/03/23 04:57 Hep Bs Antibody 57.3 (11.5-1000) 12/03/23 04:57 Human Metapneumovir PCR Not detected (NOT DETECT) 12/03/23 12:13 Influenza A (H1) PCR Not detected (NOT DETECT) 12/03/23 12:13 Influ A (H1/09) PCR Not detected (NOT DETECT) 12/03/23 12:13 Influenza A (H3) PCR Not detected (NOT DETECT) 12/03/23 12:13 Influenza Type A (PCR) Not detected (NOT DETECT) 12/03/23 12:13 Influenza Type B (PCR) Not detected (NOT DETECT) 12/03/23 12:13 M. pneumoniae (PCR) Not detected (NOT DETECT) 12/03/23 12:13 Parainfluenza 1 (PCR) Not detected (NOT DETECT) 12/03/23 12:13 Parainfluenza 2 (PCR) Not detected (NOT DETECT) 12/03/23 12:13 Parainfluenza 3 (PCR) Not detected (NOT DETECT) 12/03/23 12:13 Parainfluenza 4 (PCR) Not detected (NOT DETECT) 12/03/23 12:13 RSV Type A (PCR) Not detected (NOT DETECT) 12/03/23 12:13 RSV Type B (PCR) Not detected (NOT DETECT) 12/03/23 12:13 Entero/Rhino (PCR) Not detected (NOT DETECT) 12/03/23 12:13 SARS-CoV-2 (PCR) Not detected (NOT DETECT) 12/03/23 12:13 Vitals Last Vital Signs Temp 98.0 F 12/06/23 08:00 Pulse 69 12/06/23 08:00 Resp 18 12/06/23 04:00 BP 129/46 12/06/23 08:00 Pulse Ox 92 12/06/23 08:00 O2 Del Method Nasal Cannula 12/06/23 08:00 O2 Flow Rate 4 12/06/23 00:00 FiO2 40 12/06/23 02:50 Discharge Plan Discharge Patient Disposition: Home Condition: Stable Prescriptions: New hydralazine 25 mg tablet 25 mg PO BID Qty: 60 2RF Continued allopurinol 100 mg tablet 100 mg PO DAILY calcium acetate 667 mg tablet 667 mg PO BID atorvastatin 40 mg Tablet 20 mg PO QPM carvedilol 25 mg Tablet 25 mg PO BID Rx Instructions: must administer with a meal/food omeprazole 40 mg Capsule,Delayed Release(Dr/Ec) 40 mg PO QAM nifedipine 60 mg Tablet Extended Release 24hr 120 mg PO DAILY Agnieszka-Kiley 0.8 mg Tablet 1 tab PO DAILY Vitamin D3 50 mcg (2,000 unit) Tablet 100 mcg PO DAILY lidocaine 5 % Ointment 1 applic TOPICAL TID PRN (Reason: Pain) Changed lisinopril 20 mg Tablet 40 mg PO BEDTIME Qty: 90 0RF Discharge Orders: Discharge Order (Routine); Ordered 12/06/23 Ordered By: Jarret Fish Referrals: Humera Mayen MD [Primary Care Provider] - Discharge Diet: Cardiac Discharge Activity: Increase activity as tolerated Patient Instructions: Heart Failure (DC), Dialysis Diet (DC), End Stage Kidney Disease (DC), Hemodialysis (DC), CHF Stoplight, Opioid Safety, Post Heart Attack Stoplight Discharge Attestations Time Spent in Discharge Care*: greater than 30 min Quality Metrics Clinical Quality Measures [ No reported AMI, CVA or VTE this stay] Coding Level of Care Code Acute Code for Chg Fwd Diagnoses Hyperlipidemia E78.5 Hypertension secondary to other renal disorders I15.1 Hypertension type: secondary to other renal disorders Elevated troponin R77.8 Acute on chronic diastolic congestive heart failure I50.33 Heart failure type: diastolic ESRD (end stage renal disease) N18.6 Pleural effusion J90
--- NOTE | 2023-12-06 11:33 | CTR_ITS ---
PROCEDURE INFORMATION: Exam: CTA Chest With Contrast Exam date and time: 12/06/2023 1:00 PM Age: 83 years old Clinical indication: Other: Hypoxia TECHNIQUE: Imaging protocol: Computed tomographic angiography of the chest with contrast. Exam focused on the arteries. 3D rendering (Not supervised by radiologist): MIP and/or 3D reconstructed images were created by the technologist. Radiation optimization: All CT scans at this facility use at least one of these dose optimization techniques: automated exposure control; mA and/or kV adjustment per patient size (includes targeted exams where dose is matched to clinical indication); or iterative reconstruction. Contrast material: OMNI 350; Contrast volume: 100 ml; Contrast route: INTRAVENOUS (IV); COMPARISON: CR XR chest 1V portable [id number] 12/03/2023 10:41 AM RADIATION DOSE METRICS: Total DLP (mGy-cm): 440 FINDINGS: Pulmonary arteries: No significant hypodense filling defects are seen within the pulmonary arteries or their major branches to indicate pulmonary embolus. Aorta: Diffuse atherosclerotic vascular disease noted of the thoracic aorta with mild ectasia. No dissection/aneurysm. Images through the upper-most abdomen demonstrate extensive vascular calcification of the upper abdominal aorta and visualized tributaries. Lungs: See Pleural spaces finding. Pleural spaces: Bilateral mild pleural effusions, predominantly posteriorly and qisxy-srocapp-veiq-left. A component of subjacent atelectasis is seen within the lower lungs, jrlup-aemshcy-xoxc-left. Scattered ill-defined ground-glass opacity within the lungs on the lung windows bilaterally suggest pulmonary edema. Chronic scarring right lung apex also noted. There is a component of chronic pleural and parenchymal calcifications, particularly right lung apex, though with mild bilateral posterior pleural calcifications. Heart: Mild cardiomegaly. No significant pericardial effusion. Fairly extensive coronary artery calcification noted. Lymph nodes: Nonspecific lymph nodes within the mediastinum, without significant lymphadenopathy. Diaphragm: Very small hiatal hernia. Kidneys and ureters: Suggestion of partially visualized renal cysts. Bones/joints: Bone windows show no acute osseous abnormality. Spondylotic change thoracic spine. Soft tissues: Unremarkable. CT/CT angio chest PE protcl [id number] IMPRESSION: 1. No CT findings to indicate pulmonary embolus. 2. Diffuse atherosclerotic vascular disease of the thoracic and upper abdominal aorta with mild ectasia. Coronary artery calcification. 3. Lung windows suggest bilateral pulmonary edema, along with bilateral posterior pleural effusions with subjacent atelectasis in the lower lungs, [id number]-fkzh-left. Mild cardiomegaly. Findings suggest CHF. 4. Chronic right apical pleural-parenchymal scarring with calcification, along with component of mild posterior pleural calcification bilaterally. COMMENTS: Consistent with the [employer]'s Incidental Findings Committee white paper (J Am Donna Radiol 2018): Any incidental renal lesion less than 1 cm or classified as too small to characterize, or any incidental cystic renal lesion characterized as simple-appearing, is likely benign. No follow-up imaging is recommended for these lesions per consensus recommendations based on imaging criteria.
[2023-12-06] MEDS: iohexol 350 mg/mL 500 mL Btl (per mL) IV (13:07)
--- NOTE | 2023-12-06 13:11 | PC.NURSE ---
Patient was off the unit for a CTA. Returned at 1311.
--- NOTE | 2023-12-06 17:23 | PC.NURSE ---
Patient has been [facility].
== END 2023-12-06 19:00 | disposition home or self-care (01) | DRG 280 ==
LOC: ER 10:53 → CSU 14:09 → ICU 17:59 → MEDSURG 12-04 16:25
PROVIDERS: Hospitalist; Student in an Organized Health Care Education/Training Program; Admitting Provider Internal Medicine; Emergency Provider Family Medicine; PCP Family Medicine; Visit Provider Internal Medicine
DX: I16.1 Hypertensive emergency (principal); I50.33 Acute on chronic diastolic (congestive) heart failure; I21.4 Non-ST elevation (NSTEMI) myocardial infarction; N18.6 End stage renal disease; J96.01 Acute respiratory failure with hypoxia; J96.02 Acute respiratory failure with hypercapnia; E78.5 Hyperlipidemia, unspecified; I15.1 Hypertension secondary to other renal disorders; Z99.2 Dependence on renal dialysis; Z87.891 Personal history of nicotine dependence; I11.0 Hypertensive heart disease with heart failure; D63.1 Anemia in chronic kidney disease; Z66 Do not resuscitate; Z86.73 Personal history of transient ischemic attack (TIA), and cerebral infarction without residual deficits; M1A.9XX0 Chronic gout, unspecified, without tophus (tophi)
CPT/HCPCS: 36415; 36416; 36600; 71045; 71275; 78452; 80048; 80051; 80053; 81001; 82330; 82805; 82962; 83036; 83605; 83735; 83880; 84145; 84443; 84484; 85025; 85378; 85730; 86706; 87040; 87086; 87340; 87486; 87581; 87633; 90935; 93005; 93017; 93308; 94640; 94660; 94760; 96365; 96367; 96372; 96375; 96376; 99291; A9500; J0280; J0360; J1644; J1940; J2270; J2785; J3490; Q3014; Q9967

== ENCOUNTER 2024-04-25 16:20 | Inpatient (IN) | payer OTHER, SELFPAY ==
[2024-04-25] VITALS (10 sets, daily range): BP systolic 174–202; BP diastolic 65–100; PULSE 66–80; RESP 16–18; TEMP 36.8–37.9; O2SAT 87–96; BMI 23.0
--- NOTE | 2024-04-25 16:30 | XR_ITS ---
WS: [id number] Left hip, AP and frog-leg views, 04/25/2024 Clinical Data: FALL, PAIN Comparison: None. Findings: There is a comminuted intertrochanteric fracture of the left hip. The femoral head remains within the acetabulum. There are clips in the left inguinal region. There are vascular calcifications. The adjacent left hip is intact. XR/XR hip LT 2-3V wo/w pel* [id number] Impression: Comminuted intertrochanteric fracture of the left hip.
--- NOTE | 2024-04-25 16:35 | XRR_ITS ---
PROCEDURE INFORMATION: Exam: XR Left Humerus Exam date and time: 04/25/2024 4:48 PM Age: 84 years old Clinical indication: Injury or trauma; Fall; Blunt trauma (contusions or hematomas); Shoulder and arm, upper; Left TECHNIQUE: Imaging protocol: Radiologic exam of the left humerus. Views: 2 or more views. COMPARISON: CR (CHEST, ) 04/25/2024 4:45 PM FINDINGS: Bones/joints: There is osteopenia. The humeral head is slightly high-riding. This can indicate chronic rotator cuff tear. No fracture. Lungs: There are coarse interstitial markings. Soft tissues: Normal. XR/[place] [id number] IMPRESSION: No fracture.
--- NOTE | 2024-04-25 16:35 | XRR_ITS ---
PROCEDURE INFORMATION: Exam: XR Left Shoulder Exam date and time: 04/25/2024 4:45 PM Age: 84 years old Clinical indication: Injury or trauma; Fall; Blunt trauma (contusions or hematomas); Shoulder and arm, upper; Left TECHNIQUE: Imaging protocol: Radiologic exam of the left shoulder. Views: 2 or more views. COMPARISON: CR (CHEST, ) 04/25/2024 4:43 PM FINDINGS: Bones/joints: There is osteopenia. The humeral head is slightly high-riding this can indicate chronic rotator cuff tear. Mild degenerative spurring acromioclavicular joint. No radiographic evidence of fracture. Soft tissues: Normal. XR/XR shoulder LT min 2V* [id number] IMPRESSION: No radiographic evidence of fracture.
--- NOTE | 2024-04-25 16:37 | XRR_ITS ---
PROCEDURE INFORMATION: Exam: XR Chest Exam date and time: 04/25/2024 4:43 PM Age: 84 years old Clinical indication: Cough and dyspnea; Additional info: Dyspnea/cough TECHNIQUE: Imaging protocol: Radiologic exam of the chest. Views: 1 view. COMPARISON: CT angio chest PE protcl [id number] 12/06/2023 1:00 PM FINDINGS: Lungs: No infiltrate. Pleural-parenchymal changes noted in the right lung apex benign calcifications in the right lung apex Pleural spaces: Moderate right and small left pleural effusions. Heart/Mediastinum: There is moderate cardiomegaly with vascular congestion. Bones/joints: Unremarkable. XR/XR chest 1V portable [id number] IMPRESSION: 1. Moderate cardiomegaly with vascular congestion. 2. Moderate right and small left pleural effusions. .
--- NOTE | 2024-04-25 16:38 | ED_ITS ---
HPI - Fall 2 General: Chief Complaint: Fall Stated Complaint: Left hip pain- Fall Time Seen by Provider: 04/25/24 16:32 History of Present Illness: 84-year-old male [facility] complaints of left hip pain after a fall. He is unable to move the left leg is also complaining left shoulder pain not strike his head did not lose consciousness. He denies any other injuries. Left leg is externally rotated painful at the hip Associated symptoms-after fall: Denies abdominal pain, chest pain or neck pain Related Data Home Medications Medication Instructions Recorded Confirmed allopurinol 100 mg tablet 100 mg PO QPM 10/08/20 04/25/24 calcium acetate 667 mg tablet 667 mg PO BID 10/08/20 04/25/24 atorvastatin 40 mg tablet 20 mg PO QPM 12/03/23 04/25/24 carvedilol 25 mg tablet 25 mg PO BID 12/03/23 04/25/24 nifedipine 60 mg tablet,extended 120 mg PO QAM 12/03/23 04/25/24 release 24 hr hydralazine 25 mg tablet 25 mg PO QPM 04/25/24 04/25/24 Allergies Allergy/AdvReac Type Severity Reaction Status Date / Time No Known Allergies Allergy Verified 03/28/23 12:15 Review of Systems 2 Const: Denies: fever(s) or chills Card: Denies: chest pain Resp: Denies: dyspnea GI: Denies: abdominal pain : Denies: dysuria, urinary frequency or urinary urgency Musc: Reports: joint pain; Denies: neck pain or back pain Skin/Breast: Denies: rash PFSH ED 2 PFSH: Medical History Acute exacerbation of CHF (congestive heart failure) NSTEMI (non-ST elevated myocardial infarction) Pleural effusion Elevated troponin ESRD (end stage renal disease) Hypertension Hyperlipidemia Abnormal stress test COVID-19 Chronic gout Vitamin D deficiency Vitamin B12 deficiency (dietary) anemia History of TIA (transient ischemic attack) Surgical History S/P hemodialysis catheter insertion History of left knee surgery History of right knee surgery Family History Denies family history of Anesthesia complication Bleeding disorder Social History Smoking and tobacco/nicotine status: former use of tobacco/nicotine Alcohol intake: never Substance/Drug Use: never Physical Exam 2 Const: GENERAL APPEARANCE: cooperative ORIENTATION/CONSCIOUSNESS: Yes awake, Yes oriented to person, Yes oriented to place and Yes oriented to time HENMT: COMMON NORMALS: normocephalic, atraumatic and hearing grossly normal bilaterally HEAD & SCALP: normocephalic and atraumatic Resp: COMMON NORMALS: normal respiratory effort, No retractions, No use of accessory muscles and clear to auscultation bilaterally AUSCULTATION: clear to auscultation bilaterally Cardio: COMMON NORMALS: regular rate, regular rhythm and No murmurs present (Cardio) RATE: regular rate RHYTHM: regular rhythm GI: COMMON NORMALS: Soft to palpation and No hepatosplenomegaly present A USCULTATION: Yes normoactive bowel sounds PALPATION: Yes Soft to palpation, No Tenderness to palpation present (GI), No Guarding due to palpation present (GI) and Yes No hepatosplenomegaly present Extremity: COMMON NORMALS: normal to inspection, capillary refill normal, no clubbing, cyanosis or edema, no calf tenderness and no pedal edema OTHER: External rotation at the left hip. Dorsalis pedis pulse good is neurovascularly intact Neuro: SENSORIUM/ORIENTATION: Yes oriented to person, Yes oriented to place and Yes oriented to time Skin: COMMON NORMALS: no rashes or lesions noted GENERAL SKIN EXAM: no rashes or lesions noted Course 2 Vital Signs: Vital signs: Vital Signs Temperature 98.6 F 04/26/24 09:32 Pulse Rate 73 04/26/24 09:32 Respiratory Rate 16 04/26/24 09:32 Blood Pressure 177/80 04/26/24 09:55 Pulse Oximetry 90 04/26/24 04:41 Oxygen Delivery Me thod Nasal Cannula 04/26/24 04:00 Oxygen Flow Rate 2 04/26/24 07:16 MDM - Fall Medical Decision Making Comminuted left intertrochanteric hip fracture. Will admit orders written. Discussed with hospitalist. Patient does have history of end-stage renal disease nephrology consulted as well he did have his regular dialysis on the day of admission. Medical Records I reviewed the patient's medical records. Lab Data I reviewed the patient's lab results. 04/26/24 05:06 04/26/24 05:06 Radiology Impressions Hip/Pelvis X-Ray 04/25/24 16:30 Impression: Comminuted intertrochanteric fracture of the left hip. Humerus X-Ray 04/25/24 16:35 IMPRESSION: No fracture. Shoulder X-Ray 04/25/24 16:35 IMPRESSION: No radiographic evidence of fracture. Chest X-Ray 04/25/24 16:37 IMPRESSION: 1. Moderate cardiomegaly with vascular congestion. 2. Moderate right and small left pleural effusions. . Laboratory Results WBC 8.98 10^3/uL (3.29-11.43) 04/25/24 17:04 RBC 3.74 10^6/uL (3.85-5.65) L 04/25/24 17:04 Hgb 10.70 g/dL (11.27-16.99) L 04/25/24 17:04 Hct 33.7 % (37-53) L 04/25/24 17:04 MCV 90.1 fl (82-101) 04/25/24 17:04 MCH 28.6 pg (27-33) 04/25/24 17:04 MCHC 31.8 g/dL (30-55) 04/25/24 17:04 RDW 17.6 % (12.1-15.1) H 04/25/24 17:04 Plt Count 266 10^3/cmm (157-399) 04/25/24 17:04 MPV 10.7 fL (7.4-10.4) H 04/25/24 17:04 Neut % (Auto) 71.2 % 04/25/24 17:04 Lymph % (Auto) 16.0 % 04/25/24 17:04 [place] % (Auto) 8.6 % 04/25/24 17:04 Eos % (Auto) 2.8 % 04/25/24 17:04 Baso % (Auto) 0.7 % 04/25/24 17:04 Neut # (Auto) 6.40 10^3/uL (1.8-7.7) 04/25/24 17:04 Lymph # (Auto) 1.4 10^3/uL (0.8-4.8) 04/25/24 17:04 [place] # (Auto) 0.8 10^3/uL (0.2-0.9) 04/25/24 17:04 Eos # (Auto) 0.3 10^3/uL (0.0-0.8) 04/25/24 17:04 Baso # (Auto) 0.1 10^3/uL (0.0-0.1) 04/25/24 17:04 Nucleated RBC % (auto) 0 % 04/25/24 17:04 Nucleated RBCs # 0.0 /100WBC 04/25/24 17:04 Sodium 140 mmol/L (136-145) 04/25/24 17:04 Potassium 3.8 mmol/L (3.5-5.1) 04/25/24 17:04 Chloride 95 mmol/L (98-107) L 04/25/24 17:04 Carbon Dioxide 30 mmol/L (22-29) H 04/25/24 17:04 Anion Gap 18.8 (5-19) 04/25/24 17:04 BUN 13 mg/dL (8-23) 04/25/24 17:04 Creatinine 3.6 mg/dL (0.7-1.2) H 04/25/24 17:04 GFR Calculation Not Reportable 04/25/24 17:04 Glucose 117 mg/dL (65-115) H 04/25/24 17:04 Calculated Osmolality 291 mOsm/kg (285-295) 04/25/24 17:04 Uric Acid 2.2 mg/dL (3.4-7.0) L 04/25/24 17:04 Calcium 9.6 mg/dL (8.5-10.5) 04/25/24 17:04 Total Bilirubin 0.4 mg/dL (0.15-1.2) 04/25/24 17:04 AST 21 U/L (0-40) 04/25/24 17:04 ALT 10 U/L (0-41) 04/25/24 17:04 Alkaline Phosphatase 116 U/L (40-130) 04/25/24 17:04 Total Protein 7.3 g/dL (6.6-8.7) 04/25/24 17:04 Albumin 4.3 g/dL (3.5-5.2) 04/25/24 17:04 Globulin 3.0 g/dL (1.3-4.6) 04/25/24 17:04 Procalcitonin 0.36 ng/mL (0-0.5) 04/25/24 17:04 Urine Color Yellow (Yellow) 04/25/24 17:45 Urine Appearance Clear (CLEAR) 04/25/24 17:45 Urine pH 8.5 (5-7) A 04/25/24 17:45 Ur Specific [place] 1.013 (1.005-1.030) 04/25/24 17:45 Urine Protein 3+ (Negative) A 04/25/24 17:45 Urine Glucose (UA) Negative (Normal) 04/25/24 17:45 Urine Ketones Negative (Negative) 04/25/24 17:45 Urine Blood Non-haemolysed trace (Negative) 04/25/24 17:45 Urine Nitrate Negative (Negative) 04/25/24 17:45 Urine Bilirubin Negative (Negative) 04/25/24 17:45 Urine Urobilinogen 1.0 mg/dL (Negative) 04/25/24 17:45 Ur Leukocyte Esterase 1+ (Negative) A 04/25/24 17:45 Urine RBC 3-5 /hpf (0-2) 04/25/24 17:45 Urine WBC >100 /hpf (0-5) H 04/25/24 17:45 Ur Squamous Epith Cells 0-5 /hpf (0-5) 04/25/24 17:45 Amorphous Sediment Not Reportable 04/25/24 17:45 Urine Bacteria 1+ /hpf (NONE) H 04/25/24 17:45 Hyaline Casts 2.87 /lpf 04/25/24 17:45 Hep Bs Antigen Non-reactive (Nonreactive) 04/25/24 17:04 Hep Bs Antibody 33.7 (11.5-1000) 04/25/24 17:04 Hepatitis C Antibody Non-reactive (Nonreactive) 04/25/24 17:04 All radiology interpretation(s) finalized by discharge Discharge Plan Discharge Patient Disposition: Admitted As Inpatient Admit Provider: Carrie Johnson Clinical Impression: ESRD (end stage renal disease), Fracture of hip, left, closed Condition: Stable Coding Level of Care Code ED Software Quality Assurance Engineer for Eloy Pike
--- NOTE | 2024-04-25 16:38 | ECG_ITS ---
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 Measurements Intervals [place] Rate: 66 P: -9 MS: 136 QRS: 93 QRSD: 166 T: 27 QT: 468 QTc: 492 Interpretive Statements SINUS RHYTHM RIGHT BUNDLE BRANCH BLOCK [120+ ms QRS DURATION, UPRIGHT V1, 40+ ms S IN I/aVL/V4/V5/V6] Compared to ECG 12/03/2023 12:20:31 No significant changes Electronically Signed On 04-27-2024 21:38:42 WARP PREPARER by Jovita Infante M.D. [id number]
[2024-04-25 17:25] LABS: Basophils # 0.1 10^3/uL (0.0-0.1); Basophils % 0.7 %; Eosinophils # 0.3 10^3/uL (0.0-0.8); Eosinophils % 2.8 %; Hematocrit 33.7 % (37-53); Lymphocytes # 1.4 10^3/uL (0.8-4.8); Mean Corpuscular HGB Conc 31.8 g/dL (30-55); Mean Corpuscular Hemoglobin 28.6 pg (27-33); Mean Corpuscular Volume 90.1 fl (82-101); Mean Platelet Volume 10.7 fL (7.4-10.4); Monocytes # 0.8 10^3/uL (0.2-0.9); Monocytes % 8.6 %; Neutrophils % 71.2 %; Nucleated Red Blood Cells % 0 %; Platelet Count 266 10^3/cmm (157-399); Red Blood Count 3.74 10^6/uL (3.85-5.65); Red Cell Distribution Width 17.6 % (12.1-15.1); White Blood Count 8.98 10^3/uL (3.29-11.43)
[2024-04-25] MEDS: fentaNYL 50 mcg/mL INJ 2mL 25 MCG IVP (17:25)
[2024-04-25 17:47] LABS: Alanine Aminotransferase 10 U/L (0-41); Albumin Level 4.3 g/dL (3.5-5.2); Alkaline Phosphatase 116 U/L (40-130); Anion Gap 18.8 (5-19); Aspartate Amino Transferase 21 U/L (0-40); Blood Urea Nitrogen 13 mg/dL (8-23); Calcium 9.6 mg/dL (8.5-10.5); Carbon Dioxide 30 mmol/L (22-29); Chloride 95 mmol/L (98-107); Creatinine Clr Calc Pharmacy 16.4245; Glucose 117 mg/dL (65-115); Osmolality Calculated 291 mOsm/kg (285-295); Potassium 3.8 mmol/L (3.5-5.1); Sodium 140 mmol/L (136-145); Total Bilirubin 0.4 mg/dL (0.15-1.2); Total Protein 7.3 g/dL (6.6-8.7)
[2024-04-25 17:56] LABS: Bilirubin Urine Negative (Negative); Blood Urine Non-haemolysed trace (Negative); Glucose Urine UA Negative (Normal); Ketones Urine Negative (Negative); Leukocyte Esterase Urine 1+ (Negative); Nitrate Urine Negative (Negative); Protein Urine 3+ (Negative); Specific Gravity, Urine 1.013 (1.005-1.030); Urine Appearance Clear (CLEAR); Urine Color Yellow (Yellow); pH Urine 8.5 (5-7)
[2024-04-25 18:01] LABS: Add Urine Microscopic? YES; Bacteria Urine 1+ /hpf; Hyaline Casts Urine 2.87 /lpf; Squamous Epithelial Cell Urine 0-5 /hpf (0-5); WBC Urine >100 /hpf (0-5)
[2024-04-25 18:03] LABS: Add Urine Culture? Yes
[2024-04-25 18:32] LABS: Procalcitonin 0.36 ng/mL (0-0.5)
[2024-04-25] MEDS: heparin 5,000 unit/mL INJ 1 mL 5000 UNIT SUBCUT (18:42)
--- NOTE | 2024-04-25 18:57 | P.HP_ITS ---
Providers/Chief Complaint 2 Admitting Physician: Carrie Johnson MD Primary Care Provider: Humera Mayen MD Chief Complaint: Left hip pain- Fall History of Present Illness Fermin Patel is a 84 year old male with history of dialysis TTS, type II OK most recent discharge from the hospital when he was admitted for management of hypertensive urgency, cardiac stress test showed small area of jaylan-infarct ischemia cardiology commended medical management, presenting to the hospital after sustaining a fall. Patient is stating that he was dialyzed on Wednesday without any complications, at baseline uses 2 L of oxygen mostly at nighttime. On Wednesday evening he was trying to sway squirrels away from his front porch when he lost balance and fell behind his rocking chair. Patient is denying chest pain, loss of consciousness, syncope. Dr. Lee has been consulted, clinically patient does not look fluid overloaded however he does have passive congestion x-ray currently patient is on 2 L, hypertensive, saturating well on 2 L nasal cannula Review of Systems 2 Const: Denies: fever(s) Eyes: Denies: change in vision ENMT: Denies: throat pain Card: Denies: chest pain Resp: Denies: dyspnea GI: Denies: abdominal pain : Denies: flank pain Medications/Allergies Home Medications Medication Instructions Recorded Confirmed Last Taken Type allopurinol 100 mg tablet 100 mg PO DAILY 10/08/20 12/03/23 12/02/23 History calcium acetate 667 mg tablet 667 mg PO BID 10/08/20 12/03/23 12/02/23 History atorvastatin 40 mg tablet 20 mg PO QPM 12/03/23 12/03/23 12/02/23 History carvedilol 25 mg tablet 25 mg PO BID 12/03/23 12/03/23 12/02/23 History cholecalciferol (vitamin D3) 50 100 mcg PO DAILY 12/03/23 12/03/23 12/02/23 History mcg (2,000 unit) tablet (Vitamin D3) lidocaine 5 % topical ointment 1 applic topical TID PRN Pain 12/03/23 12/03/23 Unknown History nifedipine 60 mg tablet,extended 120 mg PO DAILY 12/03/23 12/03/23 12/02/23 History release 24 hr omeprazole 40 mg capsule,delayed 40 mg PO QAM 12/03/23 12/03/23 12/02/23 History release vitamin B complex-vitamin C-folic 1 tab PO DAILY 12/03/23 12/03/23 12/02/23 History acid 0.8 mg tablet (Agnieszka-Kiley) hydralazine 25 mg tablet 25 mg PO BID #60 tabs 12/06/23 Unknown Rx lisinopril 20 mg tablet 40 mg (2 x 20 mg) PO BEDTIME #90 12/06/23 12/03/23 12/02/23 Rx tabs Allergies Allergy/AdvReac Type Severity Reaction Status Date / Time No Known Allergies Allergy Verified 03/28/23 12:15 PFSH Acute 2 PFSH: Medical History (Updated 04/25/24 @ 20:06 by Jarret Fish MD) Acute exacerbation of CHF (congestive heart failure) NSTEMI (non-ST elevated myocardial infarction) Pleural effusion Elevated troponin ESRD (end stage renal disease) Hypertension Hyperlipidemia Abnormal stress test COVID-19 Chronic gout Vitamin D deficiency Vitamin B12 deficiency (dietary) anemia History of TIA (transient ischemic attack) Surgical History S/P hemodialysis catheter insertion History of left knee surgery History of right knee surgery Family History Denies family history of Anesthesia complication Bleeding disorder Social History Smoking and tobacco/nicotine status: former use of tobacco/nicotine Alcohol intake: never Substance/Drug Use: never Vitals/I&O/Wt Last Vital Signs Temp 98.3 F 04/25/24 16:28 Pulse 74 04/25/24 18:00 Resp 18 04/25/24 18:00 BP 194/72 04/25/24 18:00 Pulse Ox 92 04/25/24 18:00 O2 Del Method Nasal Cannula 04/25/24 18:00 O2 Flow Rate 2 04/25/24 18:00 Weight last 48 hrs Weight 77.111 kg Physical Exam 2 Narrative: Clinically patient does not look fluid overloaded Currently on 2 L Hypertensive No active chest pain S1, S2 Abdomen soft Pleasant and cooperative GCS 15 Nonfocal neuroexam No audible stridor or wheezing Data 04/25/24 17:04 04/25/24 17:04 A&P Assessment and plan (1) ESRD (end stage renal disease): (2) Fracture of hip, left, closed: (3) Chronic gout: (4) Pleural effusion: (5) Hypertensive urgency: (6) Fall: Plan Mechanical fall Hip fracture Dr. Lee consulted Patient will be kept n.p.o. after midnight Opioids along bowel regimen End-stage renal disease Wednesday last session was on Wednesday, he does have passive congestion but clinically does not look extremely fluid overloaded Nephro consulted, we may have to dialyze him on Wednesday in order to optimize him for surgery Chronic hypoxia requires 2 L of oxygen he uses mostly at nighttime Patient is not on any anticoagulating agent Hypertensive urgency avoid lisinopril in perioperative time Would use hydralazine, nifedipine, Coreg and keep IV hydralazine on board as well DNR/DNI discussed with the patient Lives alone Recent type II [place] stress test showed small jaylan-infarct ischemia which was managed medically as per cardiology Renal diet and then n.p.o. after midnight DVT prophylaxis: SCDs Attestations 2 Medical Necessity Statement*: More than 2 midnights anticipated Diagnoses ESRD (end stage renal disease) N18.6 Fracture of hip, left, closed S72.002A Chronic gout [id number].[id number] Pleural effusion J90 Hypertensive urgency I16.0 Fall W19.XXXA
--- NOTE | 2024-04-25 19:16 | PC.NURSE ---
This nurse took over patient care from Keysha WOODRUFF at shift change. Upon assessment pt is awake, alert, and oriented. Pt has a indwelling catheter. Pt state pain 8/10 despite previous medications.
[2024-04-25] MEDS: morphine 4 mg/mL SDV 1 mL 2 MG IVP (20:03)
[2024-04-25] MEDS: carvedilol 25 mg Tablet PO (20:04)
[2024-04-25] MEDS: atorvastatin 40 mg Tablet 20 MG PO (20:04)
[2024-04-25] MEDS: hyDRALAzine 20 mg/mL INJ 1 mL 10 MG IVP (20:22)
--- NOTE | 2024-04-25 21:56 | P.CONIM_ITS ---
Providers/Reason For Consult 2 Consulting Physician/Specialty*: hetal munguia md/ telenephrology Reason for Consult*: ESRD care Requesting Physician: Dr Fish and DR Johnson Attending Physician: Carrie Johnson MD Primary Care Provider: Humera Mayen MD History of Present Illness History of Present Illness Fermin Patel is a 84 year old male ESRD on TTS schedule, HTN, CAD- Non STEMI in November 2023, EF 60 %. The patient had dialysis today. The patient states that he just slipped he did not syncopized and he broke his left hip. . No nausea vomiting shortness of breath or chest pain. Review of Systems 2 Narrative: Patient fell today denies syncope. Denies lightheadedness. Patient has left hip pain and left shoulder pain. No nausea vomiting no shortness of breath no chest pain no itching or cramps. Medications/Allergies Home Medications Medication Instructions Recorded Confirmed Last Taken Type allopurinol 100 mg tablet 100 mg PO QPM 10/08/20 04/25/24 04/24/24 18:00 History calcium acetate 667 mg tablet 667 mg PO BID 10/08/20 04/25/24 04/24/24 18:00 History atorvastatin 40 mg tablet 20 mg PO QPM 12/03/23 04/25/24 04/24/24 18:00 History carvedilol 25 mg tablet 25 mg PO BID 12/03/23 04/25/24 04/24/24 18:00 History nifedipine 60 mg tablet,extended 120 mg PO QAM 12/03/23 04/25/24 04/24/24 04:00 History release 24 hr hydralazine 25 mg tablet 25 mg PO QPM 04/25/24 04/25/24 04/24/24 18:00 History Allergies Allergy/AdvReac Type Severity Reaction Status Date / Time No Known Allergies Allergy Verified 03/28/23 12:15 Current Medications Generic Name Dose Route Start Last Admin Trade Name Freq PRN Reason Stop Dose Admin Atorvastatin Calcium 20 mg 04/25/24 19:49 04/25/24 20:04 Atorvastatin 40 Mg Tablet PO 20 mg QPM [facility] Administration Carvedilol 25 mg 04/25/24 19:49 04/25/24 20:04 Carvedilol 25 Mg Tablet PO 25 mg BID [facility] Administration Heparin Sodium (Porcine) 5,000 unit 04/25/24 18:00 11/12/24 18:42 Heparin 5,000 Unit/Ml Inj 1 Ml SUBCUT 5,000 unit Q12H [facility] Administration Hydralazine HCl 10 mg 04/25/24 20:05 04/25/24 20:22 Hydralazine 20 Mg/Ml Inj 1 Ml IVP 10 mg Q4H PRN Administration bp>180/100 Morphine Sulfate 2 mg 04/25/24 17:56 04/25/24 20:03 Morphine 4 Mg/Ml Sdv 1 Ml IVP 2 mg Q4H PRN Administration SEVERE PAIN PFSH Acute 2 PFSH: Medical History (Updated 04/25/24 @ 20:06 by Jarret Fish MD) Acute exacerbation of CHF (congestive heart failure) NSTEMI (non-ST elevated myocardial infarction) Pleural effusion Elevated troponin ESRD (end stage renal disease) Hypertension Hyperlipidemia Abnormal stress test COVID-19 Chronic gout Vitamin D deficiency Vitamin B12 deficiency (dietary) anemia History of TIA (transient ischemic attack) Surgical History S/P hemodialysis catheter insertion History of left knee surgery History of right knee surgery Family History Denies family history of Anesthesia complication Bleeding disorder Social History Smoking and tobacco/nicotine status: former use of tobacco/nicotine Alcohol intake: never Substance/Drug Use: never Vitals/I&O/Wt Last Vital Signs Temp 98.3 F 04/25/24 20:00 Pulse 80 04/25/24 20:00 Resp 18 04/25/24 20:03 BP 190/89 04/25/24 20:00 Pulse Ox 93 04/25/24 20:03 O2 Del Method Nasal Cannula 04/25/24 20:00 O2 Flow Rate 2 04/25/24 18:00 Weight last 48 hrs Weight 69.082 kg Weight 77.111 kg Physical Exam 2 Narrative: Patient comfortable in bed no apparent distress. Blood pressure elevated. HEENT normocephalic atraumatic. Neck is supple lungs are clear. Heart is regular positive S1-S2. Abdomen is soft positive bowel sounds. Patient has a left upper extremity fistula. Patient has tenderness by left hip and cannot rotate leg. No edema. Neuro awake alert oriented x 3 Data 04/25/24 17:04 04/25/24 17:04 CXR: My impression: Right greater than left small pleural effusions cardiomegaly and vascular congestions. Other data: Limited echo from November 2023 shows EF of 60% mild LVH aortic stenosis moderate A&P Assessment and plan (1) ESRD (end stage renal disease): 84-year-old gentleman ESRD hypertension heart failure preserved EF with mild to moderate aortic stenosis. The patient is status post left hip fracture from a fall today patient will need to go to the OR. From renal perspective patient can go to the OR. If medicine and/or anesthesia or orthopedics would like us to dialyze the patient first for volume removal we can arrange that in the morning. Anemia monitor hemoglobin is improved from November. 2. Monitor urine and assess for possible UTI. 3. Heart failure preserved EF hypertension EXT edema and JAYDEN inhibitor. The patient was seen and examined using A/V equipment as a telehealth visit. The patient consented to hemodialysis and telehealth. Plan See above. He Consult Attestations 2 Medical Necessity Statement: hip fracture, esrd, htn, as, cad, hfpef Time Spent in Patient Care: Greater than 35 minutes (>than 50% of time spent in counselling and/or direct pt care on unit) . Coding Level of Care Code Acute Code for Chg Fwd Diagnoses ESRD (end stage renal disease) N18.6
[2024-04-25 22:38] LABS: Uric Acid 2.2 mg/dL (3.4-7.0)
[2024-04-25 22:49] LABS: Hepatitis B Surface AB 33.7 (11.5-1000); Hepatitis B Surface Antigen Non-Reactive (Nonreactive); Hepatitis C Virus Antibody Non-Reactive (Nonreactive)
[2024-04-25] MEDS: losartan 50 mg Tablet 25 MG PO (23:08)
[2024-04-26] VITALS (23 sets, daily range): BP systolic 104–215; BP diastolic 48–82; PULSE 65–82; RESP 10–20; TEMP 36.4–37.7; O2SAT 90–99; BMI 20.9
--- NOTE | 2024-04-26 | XR_ITS ---
WS: [id number] Left hip, C-arm fluoroscopy views, 04/26/2024 Clinical Data: FARA PICS Comparison: Left hip, 04/25/2024 Findings: Dr. Donald repaired the intertrochanteric fracture left hip with an oblique nail and intramedullary ro d. XR/XR hip LT 2-3V wo/w pel* [id number] Impression: Internal fixation of intertrochanteric fracture left hip.
[2024-04-26] MEDS: hyDRALAzine 20 mg/mL INJ 1 mL 10 MG IVP (04:40)
[2024-04-26] MEDS: morphine 4 mg/mL SDV 1 mL 2 MG IVP ×2 (04:41→09:29)
[2024-04-26 05:29] LABS: Basophils % 0.4 %; Eosinophils # 0.2 10^3/uL (0.0-0.8); Eosinophils % 1.8 %; Lymphocytes # 1.2 10^3/uL (0.8-4.8); Lymphocytes % 13.5 %; Mean Corpuscular HGB Conc 31.3 g/dL (30-55); Mean Corpuscular Hemoglobin 28.7 pg (27-33); Mean Corpuscular Volume 91.5 fl (82-101); Mean Platelet Volume 10.7 fL (7.4-10.4); Monocytes % 11.6 %; Neutrophils # 6.16 10^3/uL (1.8-7.7); Neutrophils % 72.3 %; Nucleated Red Blood Cells % 0 %; Platelet Count 205 10^3/cmm (157-399); Red Blood Count 3.28 10^6/uL (3.85-5.65); Red Cell Distribution Width 17.9 % (12.1-15.1); White Blood Count 8.51 10^3/uL (3.29-11.43)
[2024-04-26 05:55] LABS: Alanine Aminotransferase 8 U/L (0-41); Albumin Level 3.5 g/dL (3.5-5.2); Alkaline Phosphatase 90 U/L (40-130); Anion Gap 18.6 (5-19); Aspartate Amino Transferase 18 U/L (0-40); Blood Urea Nitrogen 16 mg/dL (8-23); Calcium 8.8 mg/dL (8.5-10.5); Carbon Dioxide 28 mmol/L (22-29); Chloride 96 mmol/L (98-107); Globulin 2.6 g/dL (1.3-4.6); Glucose 80 mg/dL (65-115); Iron 23 ug/dL (59-158); Osmolality Calculated 288 mOsm/kg (285-295); Percent Saturation 15.5 % (20-50); Potassium 3.6 mmol/L (3.5-5.1); Sodium 139 mmol/L (136-145); Total Bilirubin 0.4 mg/dL (0.15-1.2); Total Iron Binding Capacity 148 mcg/dl; Total Protein 6.1 g/dL (6.6-8.7); Unsaturated Iron Binding 125 ug/dL (112-347)
[2024-04-26 05:56] LABS: Calcium 8.9 mg/dL (8.5-10.5)
[2024-04-26 06:01] LABS: Parathyroid Hormone 70.3 pg/mL (15-65)
[2024-04-26 06:09] LABS: Ferritin 2093 ng/mL (30-400)
[2024-04-26 06:10] LABS: 25 Hydroxy Vitamin D 55 ng/mL (30-100)
--- NOTE | 2024-04-26 07:20 | PC.HD ---
Prior to HD initiation, patient's BP was 204/81, with subsequent SBPs >200. Primary RN, Skylar, notified. Heparin-free isolated ultrafiltration treatment.
[2024-04-26] MEDS: NIFEdipine ER (24 hr) 30 mg Tablet 120 MG PO (08:26)
[2024-04-26] MEDS: hyDRALAzine 25 mg Tablet PO ×3 (08:27→21:01)
[2024-04-26] MEDS: losartan 50 mg Tablet 25 MG PO (08:27)
[2024-04-26] MEDS: allopurinol 100 mg Tablet PO (08:27)
[2024-04-26] MEDS: carvedilol 25 mg Tablet PO (08:27)
--- NOTE | 2024-04-26 10:13 | PM.PN ---
Subjective Subjective: seen on dialysis. has recent HTN. no n/v/f/cp/alvarez Medications: Reviewed: Yes Medication Review Details: Current Medications Acetaminophen (Acetaminophen 325 Mg Tablet) 650 mg PO Q6H PRN PRN Reason: Mild/Mod Pain Or Temp >/= 101 Albuterol/Ipratropium (Ipratropium-Albuterol 3 Ml Neb) 3 ml INHALATION Q6H PRN PRN Reason: SHORTNESS OF BREATH Allopurinol (Allopurinol 100 Mg Tablet) 100 mg PO DAILY [facility] Last Admin: 04/26/24 08:27 Dose: 100 mg Atorvastatin Calcium (Atorvastatin 40 Mg Tablet) 20 mg PO QPM [facility] Last Admin: 04/25/24 20:04 Dose: 20 mg Calcium Acetate (Calcium Acetate 667 Mg Capsule) 667 mg PO BID [facility] Last Admin: 04/26/24 08:34 Dose: Not Given Carvedilol (Carvedilol 25 Mg Tablet) 25 mg PO BID [facility] Last Admin: 04/26/24 08:27 Dose: 25 mg Heparin Sodium (Porcine) (Heparin 5,000 Unit/Ml Inj 1 Ml) 5,000 unit SUBCUT Q12H [facility] Last Admin: 04/26/24 06:11 Dose: Not Given Hydralazine HCl (Hydralazine 25 Mg Tablet) 25 mg PO BID [facility] Last Admin: 04/26/24 08:27 Dose: 25 mg Hydralazine HCl (Hydralazine 20 Mg/Ml Inj 1 Ml) 10 mg IVP Q4H PRN PRN Reason: bp>180/100 Last Admin: 04/26/24 04:40 Dose: 10 mg Losartan Potassium (Losartan 50 Mg Tablet) 25 mg PO DAILY [facility] Last Admin: 04/26/24 08:27 Dose: 25 mg Morphine Sulfate (Morphine 4 Mg/Ml Sdv 1 Ml) 2 mg IVP Q4H PRN PRN Reason: SEVERE PAIN Last Admin: 04/26/24 09:29 Dose: 2 mg Morphine Sulfate (Morphine 4 Mg/Ml Sdv 1 Ml) 4 mg IVP Q4H PRN PRN Reason: SEVERE PAIN Nifedipine (Nifedipine Er (24 Hr) 30 Mg Tablet) 120 mg PO DAILY [facility] Last Admin: 04/26/24 08:26 Dose: 120 mg Ondansetron HCl (Ondansetron 2 Mg/Ml Sdv 2 Ml) 4 mg IVP Q8H PRN PRN Reason: vomiting, or N/V if npo Vitamin D (Cholecalciferol (Vitamin D3) 1,000 Unit Tablet) 2,000 unit PO DAILY [facility] Last Admin: 04/26/24 08:34 Dose: Not Given Vitals/I&O/Wt Last Vital Signs Temp 98.6 F 04/26/24 09:32 Pulse 73 04/26/24 09:32 Resp 16 04/26/24 09:32 BP 177/80 04/26/24 09:55 Pulse Ox 90 04/26/24 04:41 O2 Del Method Nasal Cannula 04/26/24 04:00 O2 Flow Rate 2 04/26/24 07:16 04/25/24 04/26/24 04/26/24 22:59 06:59 14:59 Intake Total 500 / 500 Output Total 500 / 500 1999 / 1999 Balance -500 / -500 -1500 / -1500 Weight last 48 hrs Weight 70.2 kg Weight 67.812 kg Weight 69.082 kg Weight 77.111 kg Physical Exam Narrative: Patient comfortable in bed no apparent distress on dialysis Blood pressure elevated. HEENT normocephalic atraumatic. Neck is supple lungs are clear. Heart is regular positive S1-S2. Abdomen is soft positive bowel sounds. Patient has a left upper extremity fistula. Patient has tenderness by left hip and cannot rotate leg. No edema. Neuro awake alert oriented x 3 Data 04/26/24 05:06 04/26/24 05:06 A&P Assessment and plan (1) ESRD (end stage renal disease): 84-year-old gentleman ESRD hypertension heart failure preserved EF with mild to moderate aortic stenosis. The patient is status post left hip fracture from a fall on 04-25-24 - patient is being evaluated for possible surgery. 1. ESRD- extra SUF today 2 hrs, removed 1.5 l. seen on dialysis -likely HD tomorrow 2. htn- coreg 25 bid, hydralazine 25 bid- inc to qid, cozaar 25 d- based on k, can inc dose, nifedipne xl 120- BP appears to be improving 3. Anemia monitor hemoglobin is ok- epo once BP is improved iron sat 15%, ferritin 2092- no iv iron 4. Heart failure preserved EF w/ EXT edema and JAYDEN inhibitor. 5. pth 70- no vit d analouge. may be able to lower phoslo The patient was seen and examined using A/V equipment as a telehealth visit. The patient consented to hemodialysis and telehealth. Plan See above. dec bp Attestations Medical Necessity Statement*: left hip fx, esrd, htn Time Spent in Patient Care: 16 - 35 minutes (>than 50% of time spent in counselling and/or direct pt care on unit). Coding Level of Care Code Acute Code for g Fwd Diagnoses ESRD (end stage renal disease) N18.6
--- NOTE | 2024-04-26 10:27 | PC.CHAP ---
Pastoral Care Encounter/Spiritual Assessment Type of Contact [] Declined division merchandise manager visit [] Patient/Family/Request visit [] Outpatient visit [] Follow-up visit [] Physician referral [] Code/Alert [x] Routine visit [] Staff referral [] Actively dying [] Patient sleeping [x] Family support [] [] Out of room [] Palliative care [] [] Receiving care in room [] Pre-surgical visit [] Trauma [] Long length of stay [] ICU visit [] Other: Relational/Emotional Strength [x] Patient feels connected with others/family/visitors/staff [] Distress [] Loneliness/isolation [] Abandonment Spirituality of Patient [x] Person of Divya [] Attends Amish of their Divya [x] Believes in Prayer [] Reads Bible or Church materials [] There are Spiritual issues to be addressed Plodding Operator Interventions [x] Prayer [x] Active listening [] Non-anxious presence [x] Spiritual/emotional support [] Crisis/trauma care [] Spiritual counseling [] Bereavement support [] Provided bereavement packet [] Provided Bible/devotional materials [] Provided toy/stuffed animal, coloring book to patient or family member [] Provided Communion [] Anointing/[place] [] Salvation [x] Completed spiritual assessment [] Other: Impact on Illness or Injury [] Angry [] Fearful [] Anxious [] Often cries [] Exhaustion [] Unable to work [] Unable to attend advent [] Unable to walk/stand [] Unable to read [] Unable to drive [] Unable to eat/drink [] Unable to sleep [] Unable to be with family [] Patient intubated [] Other: Summary Time spent with patient 5 min
--- NOTE | 2024-04-26 11:55 | P.PN_ITS ---
Subjective 2 Subjective: Seen today. Patient going for surgery today. No acute events overnight. Underwent dialysis this morning. Vitals/I&O/Wt Last Vital Signs Temp 99.1 F 04/26/24 11:10 Pulse 69 04/26/24 11:10 Resp 16 04/26/24 11:10 BP 191/81 04/26/24 11:10 Pulse Ox 90 04/26/24 11:10 O2 Del Method Nasal Cannula 04/26/24 11:10 O2 Flow Rate 2 04/26/24 11:10 04/25/24 04/26/24 04/26/24 22:59 06:59 14:59 Intake Total 500 / 500 Output Total 500 / 500 1999 / 1999 Balance -500 / -500 -1500 / -1500 Weight last 48 hrs Weight 70.2 kg Weight 67.812 kg Weight 69.082 kg Weight 77.111 kg Physical Exam 2 Narrative: Alert oriented x 3, family at bedside. Currently on 2 L No active chest pain S1, S2 Abdomen soft Pleasant and cooperative GCS 15 Nonfocal neuroexam No audible stridor or wheezing Data 04/26/24 05:06 04/26/24 05:06 A&P Assessment and plan (1) ESRD (end stage renal disease): (2) Fracture of hip, left, closed: (3) Chronic gout: (4) Pleural effusion: (5) Hypertensive urgency: (6) Fall: Plan Mechanical fall Hip fracture Dr. Lee consulted Patient will be kept n.p.o. after midnight Opioids along bowel regimen End-stage renal disease Wednesday last session was on Wednesday, he does have passive congestion but clinically does not look extremely fluid overloaded Nephro consulted, we may have to dialyze him on Wednesday in order to optimize him for surgery Chronic hypoxia requires 2 L of oxygen he uses mostly at nighttime Patient is not on any anticoagulating agent Hypertensive urgency avoid lisinopril in perioperative time Would use hydralazine, nifedipine, Coreg and keep IV hydralazine on board as well DNR/DNI discussed with the patient Lives alone Recent type II [place] stress test showed small jaylan-infarct ischemia which was managed medically as per cardiology Renal diet and then n.p.o. after midnight DVT prophylaxis: SCDs 04/25/2024 -Plan for surgery today. ? Patient underwent dialysis this morning. ? Continue nifedipine Coreg IV hydralazine and oral hydralazine. ? Nephrology following ? Orthopedic surgery consulted. Plan for procedure around 3 PM today. Attestations 2 Medical Necessity Statement*: More than 2 midnights anticipated Diagnoses ESRD (end stage renal disease) N18.6 Fracture of hip, left, closed S72.002A Chronic gout [id number] Pleural effusion J90 Hypertensive urgency I16.0 Fall W19.XXXA
--- NOTE | 2024-04-26 13:37 | PM.CONSULT ---
Providers/Reason For Consult Consulting Physician/Specialty*: Nika Donald MD Reason for Consult*: Left intertrochanteric hip fracture Requesting Physician: Dr. Landen Pino Attending Physician: Carrie Johnson MD Primary Care Provider: Humera Mayen MD History of Present Illness History of Present Illness Fermin Patel is a 84 year old male who was in his usual state of health. The patient is on dialysis, and he has a history of recent MRI with hypertensive urgency. The patient fell at home while he was trying to daniel squirrels away from his front porch. He lost his balance and fell behind his rocking chair. He denied any sort of reason such as loss of consciousness or syncope for his fall. He had dialysis this morning, and is seen in his room this afternoon. Review of Systems Narrative: Patient fell today denies syncope. Denies lightheadedness. Patient has left hip pain and left shoulder pain. No nausea vomiting no shortness of breath no chest pain no itching or cramps. Const: Denies: fever(s) or chills Eyes: Denies: change in vision or photophobia ENMT: Denies: throat pain Card: Denies: chest pain Resp: Denies: dyspnea GI: Denies: abdominal pain : Denies: flank pain, dysuria, urinary frequency or urinary urgency Musc: Reports: joint pain; Denies: neck pain or back pain Skin/Breast: Denies: rash Medications/Allergies Home Medications Medication Instructions Recorded Confirmed Last Taken Type allopurinol 100 mg tablet 100 mg PO QPM 10/08/20 04/25/24 04/24/24 18:00 History calcium acetate 667 mg tablet 667 mg PO BID 10/08/20 04/25/24 04/24/24 18:00 History atorvastatin 40 mg tablet 20 mg PO QPM 12/03/23 04/25/24 04/24/24 18:00 History carvedilol 25 mg tablet 25 mg PO BID 12/03/23 04/25/24 04/24/24 18:00 History nifedipine 60 mg tablet,extended 120 mg PO QAM 12/03/23 04/25/24 04/24/24 04:00 History release 24 hr hydralazine 25 mg tablet 25 mg PO QPM 04/25/24 04/25/24 04/24/24 18:00 History Allergies Allergy/AdvReac Type Severity Reaction Status Date / Time No Known Allergies Allergy Verified 03/28/23 12:15 Current Medications Generic Name Dose Route Start Last Admin Trade Name Fiorella PRN Reason Stop Dose Admin Allopurinol 100 mg 04/26/24 09:00 04/26/24 08:27 Allopurinol 100 Mg Tablet PO 100 mg DAILY [facility] Administration Atorvastatin Calcium 20 mg 04/25/24 19:49 04/25/24 20:04 Atorvastatin 40 Mg Tablet PO 20 mg QPM [facility] Administration Calcium Acetate 667 mg 04/26/24 09:00 04/26/24 08:34 Calcium Acetate 667 Mg Capsule PO Not Given BID [facility] Carvedilol 25 mg 04/25/24 19:49 04/26/24 08:27 Carvedilol 25 Mg Tablet PO 25 mg BID [facility] Administration Heparin Sodium (Porcine) 5,000 unit 04/25/24 18:00 04/26/24 06:11 Heparin 5,000 Unit/Ml Inj 1 Ml SUBCUT Not Given Q12H [facility] Hydralazine HCl 10 mg 04/25/24 20:05 04/26/24 04:40 Hydralazine 20 Mg/Ml Inj 1 Ml IVP 10 mg Q4H PRN Administration bp>180/100 Hydralazine HCl 25 mg 04/26/24 13:00 04/26/24 12:45 Hydralazine 25 Mg Tablet PO 25 mg QID [facility] Administration Losartan Potassium 25 mg 04/25/24 22:15 04/26/24 08:27 Losartan 50 Mg Tablet PO 25 mg DAILY [facility] Administration Morphine Sulfate 2 mg 04/25/24 17:56 04/26/24 09:29 Morphine 4 Mg/Ml Sdv 1 Ml IVP 2 mg Q4H PRN Administration SEVERE PAIN Nifedipine 120 mg 04/26/24 09:00 04/26/24 08:26 Nifedipine Er (24 Hr) 30 Mg Tablet PO 120 mg DAILY [facility] Administration Vitamin D 2,000 unit 04/26/24 09:00 04/26/24 08:34 Cholecalciferol (Vitamin D3) 1,000 Unit Tablet PO Not Given DAILY [facility] Additional Medication Information Current Medications Acetaminophen (Acetaminophen 325 Mg Tablet) 650 mg PO Q6H PRN PRN Reason: Mild/Mod Pain Or Temp >/= 101 Albuterol/Ipratropium (Ipratropium-Albuterol 3 Ml Neb) 3 ml INHALATION Q6H PRN PRN Reason: SHORTNESS OF BREATH Allopurinol (Allopurinol 100 Mg Tablet) 100 mg PO DAILY [facility] Last Admin: 04/26/24 08:27 Dose: 100 mg Atorvastatin Calcium (Atorvastatin 40 Mg Tablet) 20 mg PO QPM [facility] Last Admin: 04/25/24 20:04 Dose: 20 mg Calcium Acetate (Calcium Acetate 667 Mg Capsule) 667 mg PO BID [facility] Last Admin: 04/26/24 08:34 Dose: Not Given Carvedilol (Carvedilol 25 Mg Tablet) 25 mg PO BID [facility] Last Admin: 04/26/24 08:27 Dose: 25 mg Heparin Sodium (Porcine) (Heparin 5,000 Unit/Ml Inj 1 Ml) 5,000 unit SUBCUT Q12H [facility] Last Admin: 04/26/24 06:11 Dose: Not Given Hydralazine HCl (Hydralazine 25 Mg Tablet) 25 mg PO BID [facility] Last Admin: 04/26/24 08:27 Dose: 25 mg Hydralazine HCl (Hydralazine 20 Mg/Ml Inj 1 Ml) 10 mg IVP Q4H PRN PRN Reason: bp>180/100 Last Admin: 04/26/24 04:40 Dose: 10 mg Losartan Potassium (Losartan 50 Mg Tablet) 25 mg PO DAILY [facility] Last Admin: 04/26/24 08:27 Dose: 25 mg Morphine Sulfate (Morphine 4 Mg/Ml Sdv 1 Ml) 2 mg IVP Q4H PRN PRN Reason: SEVERE PAIN Last Admin: 04/26/24 09:29 Dose: 2 mg Morphine Sulfate (Morphine 4 Mg/Ml Sdv 1 Ml) 4 mg IVP Q4H PRN PRN Reason: SEVERE PAIN Nifedipine (Nifedipine Er (24 Hr) 30 Mg Tablet) 120 mg PO DAILY [facility] Last Admin: 04/26/24 08:26 Dose: 120 mg Ondansetron HCl (Ondansetron 2 Mg/Ml Sdv 2 Ml) 4 mg IVP Q8H PRN PRN Reason: vomiting, or N/V if npo Vitamin D (Cholecalciferol (Vitamin D3) 1,000 Unit Tablet) 2,000 unit PO DAILY [facility] Last Admin: 04/26/24 08:34 Dose: Not Given PFSH Acute PFSH: Medical History Acute exacerbation of CHF (congestive heart failure) NSTEMI (non-ST elevated myocardial infarction) Pleural effusion Elevated troponin ESRD (end stage renal disease) Hypertension Hyperlipidemia Abnormal stress test COVID-19 Chronic gout Vitamin D deficiency Vitamin B12 deficiency (dietary) anemia History of TIA (transient ischemic attack) Surgical History S/P hemodialysis catheter insertion History of left knee surgery History of right knee surgery Family History Denies family history of Anesthesia complication Bleeding disorder Social History Smoking and tobacco/nicotine status: former use of tobacco/nicotine Alcohol intake: never Substance/Drug Use: never Vitals/I&O/Wt Last Vital Signs Temp 99.1 F 04/26/24 11:10 Pulse 69 04/26/24 11:10 Resp 16 04/26/24 11:10 BP 191/81 04/26/24 11:10 Pulse Ox 90 04/26/24 11:10 O2 Del Method Nasal Cannula 04/26/24 11:10 O2 Flow Rate 2 04/26/24 11:10 04/25/24 04/26/24 04/26/24 22:59 06:59 14:59 Intake Total 500 / 500 Output Total 500 / 500 1999 / 1999 Balance -500 / -500 -1500 / -1500 Weight last 48 hrs Weight 154 lb 12.232 oz Weight 149 lb 8 oz Weight 152 lb 4.8 oz Weight 170 lb Physical Exam Const: COMMON NORMALS: no acute distress, average body habitus, patient oriented x3 and alert GENERAL APPEARANCE: cooperative and comfortable ORIENTATION/CONSCIOUSNESS: Yes awake HENMT: COMMON NORMALS: normocephalic and atraumatic HEAD & SCALP: normocephalic and atraumatic Eye: GENERAL EYE: appearance normal, both eyes and all related structures Chest: COMMONS NORMALS: normal inspection of the chest Resp: COMMON NORMALS: normal respiratory effort EFFORT & INSPECTION: Yes able to speak in complete sentences and Yes symmetric chest movement Extremity: LEFT LOWER EXTREMITY: Yes hip joint (No significant swelling.) Left hip: Yes palpation (Tender.), Yes ROM (Not evaluated secondary to fracture.) and Yes neurovascular exam (Intact distally.) Neuro: COMMON NORMALS: patient oriented x3 SENSORIUM/ORIENTATION: Yes alert Psych: COMMON NORMALS: mental status grossly normal APPEARANCE: Yes grossly normal ATTITUDE: Yes calm and Yes engaged ATTENTION/CONCENTRATION: Yes attention grossly intact Skin: COMMON NORMALS: no rashes or lesions noted GENERAL SKIN EXAM: no rashes or lesions noted Data 04/26/24 05:06 04/26/24 15:45 Micro: Microbiology 04/25/24 17:45 Urine Culture - Preliminary Urine,Clean Catch Xray Ortho: My impression: X-rays were obtained at the time of the patient's presentation to the emergency department. Imaging demonstrates significant atherosclerotic disease. There is comminution of the intertrochanteric area and the patient has an impacted fracture with displacement and angulation which is comminuted. A&P Assessment and plan (1) Closed intertrochanteric fracture of left hip: Patient was admitted through the emergency department with diagnosis of a comminuted angulated displaced intertrochanteric left hip fracture. He was seen today after admission. He had dialysis this morning and is ready for operative intervention. Risks and complications were discussed with the patient and his 2 sisters who are in the room. He understands the planned surgical procedure. He is advised that he will undergo open reduction internal fixation of the left intertrochanteric hip fracture utilizing a trochanteric gamma nail. This will be done this evening pending availability of the operating room. Qualifiers: Encounter type: initial encounter Fracture alignment: displaced Qualified Code(s): S72.142A - Displaced intertrochanteric fracture of left femur, initial encounter for closed fracture Coding Level of Care Code Acute Code for Chg Fwd Diagnoses Closed displaced intertrochanteric fracture of left femur, initial encounter S72.142A Encounter type: initial encounter Fracture alignment: displaced
[2024-04-26] MEDS: acetaminophen 1,000 MG/100 ML PIGGYBACK 400 MG IV (15:07)
[2024-04-26] MEDS: gabapentin 300 mg Capsule PO (15:08)
[2024-04-26] MEDS: CELEcoxib 200 mg Capsule 400 MG PO (15:08)
--- NOTE | 2024-04-26 15:33 | P.ANESASSM_ITS ---
Pre-Anesthetic Assessment Height/Weight: Height 6 ft Weight 154 lb Temp Pulse Resp BP Pulse Ox O2 Del Method O2 Flow Rate 99.1 F 75 16 191/81 90 Nasal Cannula 2 04/26/24 11:10 04/26/24 14:00 04/26/24 11:10 04/26/24 11:10 04/26/24 11:10 04/26/24 11:10 04/26/24 11:10 Preop Diagnosis: Hip fracture Operation Date: 04/26/24 16:00 Proposed Procedures p Trochanteric Femoral Nail(Left) - Nika Donald MD Was Beta David taken within 24 hours: Yes Was Clonidine taken within 24 hours: N/A Last intake: Intake Last Liquid Date 04/25/24 Last Liquid Time 23:45 Last Solid Date 04/25/24 Last Solid Time 12:00 Social No alcohol and No tobacco Exam alert, oriented x 3, clear to auscultation bilaterally and regular rate & rhythm Anesthetic Plan ASA status: 3 Anesthesia: General Other: No prior issues with anesthesia NPO since yesterday History of hypertension on nifedipine, hydralazine and carvedilol. BB taken 04/24/2024 Denies any pulmonary issues ESRD, dialysis 3 times a week. Dialysis performed this morning. BMP ordered Labs 04/26/2024 reviewed, hemoglobin 9.4 Negative stress test earlier this year. Echo showing EF 60% EKG sinus rhythm with RBBB Plan for general anesthesia Medications/Allergies Home Medications Medication Instructions Recorded Confirmed Last Taken Type allopurinol 100 mg tablet 100 mg PO QPM 10/08/20 04/25/24 04/24/24 18:00 History calcium acetate 667 mg tablet 667 mg PO BID 10/08/20 04/25/24 04/24/24 18:00 History atorvastatin 40 mg tablet 20 mg PO QPM 12/03/23 04/25/24 04/24/24 18:00 History carvedilol 25 mg tablet 25 mg PO BID 12/03/23 04/25/24 04/24/24 18:00 History nifedipine 60 mg tablet,extended 120 mg PO QAM 12/03/23 04/25/24 04/24/24 04:00 History release 24 hr hydralazine 25 mg tablet 25 mg PO QPM 04/25/24 04/25/24 04/24/24 18:00 History Allergies Allergy/AdvReac Type Severity Reaction Status Date / Time No Known Allergies Allergy Verified 03/28/23 12:15 Current Medications Generic Name Dose Route Start Last Admin Trade Name Fiorella PRN Reason Stop Dose Admin Allopurinol 100 mg 04/26/24 09:00 04/26/24 08:27 Allopurinol 100 Mg Tablet PO 100 mg DAILY [facility] Administration Atorvastatin Calcium 20 mg 04/25/24 19:49 04/25/24 20:04 Atorvastatin 40 Mg Tablet PO 20 mg QPM [facility] Administration Calcium Acetate 667 mg 04/26/24 09:00 04/26/24 08:34 Calcium Acetate 667 Mg Capsule PO Not Given BID [facility] Carvedilol 25 mg 04/25/24 19:49 04/26/24 08:27 Carvedilol 25 Mg Tablet PO 25 mg BID [facility] Administration Heparin Sodium (Porcine) 5,000 unit 04/25/24 18:00 04/26/24 06:11 Heparin 5,000 Unit/Ml Inj 1 Ml SUBCUT Not Given Q12H [facility] Hydralazine HCl 10 mg 04/25/24 20:05 04/26/24 04:40 Hydralazine 20 Mg/Ml Inj 1 Ml IVP 10 mg Q4H PRN Administration bp>180/100 Hydralazine HCl 25 mg 04/26/24 13:00 04/26/24 12:45 Hydralazine 25 Mg Tablet PO 25 mg QID [facility] Administration Losartan Potassium 25 mg 04/25/24 22:15 04/26/24 08:27 Losartan 50 Mg Tablet PO 25 mg DAILY [facility] Administration Morphine Sulfate 2 mg 04/25/24 17:56 04/26/24 09:29 Morphine 4 Mg/Ml Sdv 1 Ml IVP 2 mg Q4H PRN Administration SEVERE PAIN Nifedipine 120 mg 04/26/24 09:00 04/26/24 08:26 Nifedipine Er (24 Hr) 30 Mg Tablet PO 120 mg DAILY [facility] Administration Vitamin D 2,000 unit 04/26/24 09:00 04/26/24 08:34 Cholecalciferol (Vitamin D3) 1,000 Unit Tablet PO Not Given DAILY [facility] Additional Medication Information Current Medications Acetaminophen (Acetaminophen 325 Mg Tablet) 650 mg PO Q6H PRN PRN Reason: Mild/Mod Pain Or Temp >/= 101 Albuterol/Ipratropium (Ipratropium-Albuterol 3 Ml Neb) 3 ml INHALATION Q6H PRN PRN Reason: SHORTNESS OF BREATH Allopurinol (Allopurinol 100 Mg Tablet) 100 mg PO DAILY [facility] Last Admin: 04/26/24 08:27 Dose: 100 mg Atorvastatin Calcium (Atorvastatin 40 Mg Tablet) 20 mg PO QPM [facility] Last Admin: 04/25/24 20:04 Dose: 20 mg Calcium Acetate (Calcium Acetate 667 Mg Capsule) 667 mg PO BID [facility] Last Admin: 04/26/24 08:34 Dose: Not Given Carvedilol (Carvedilol 25 Mg Tablet) 25 mg PO BID [facility] Last Admin: 04/26/24 08:27 Dose: 25 mg Heparin Sodium (Porcine) (Heparin 5,000 Unit/Ml Inj 1 Ml) 5,000 unit SUBCUT Q12H [facility] Last Admin: 04/26/24 06:11 Dose: Not Given Hydralazine HCl (Hydralazine 25 Mg Tablet) 25 mg PO BID [facility] Last Admin: 04/26/24 08:27 Dose: 25 mg Hydralazine HCl (Hydralazine 20 Mg/Ml Inj 1 Ml) 10 mg IVP Q4H PRN PRN Reason: bp>180/100 Last Admin: 04/26/24 04:40 Dose: 10 mg Losartan Potassium (Losartan 50 Mg Tablet) 25 mg PO DAILY [facility] Last Admin: 04/26/24 08:27 Dose: 25 mg Morphine Sulfate (Morphine 4 Mg/Ml Sdv 1 Ml) 2 mg IVP Q4H PRN PRN Reason: SEVERE PAIN Last Admin: 04/26/24 09:29 Dose: 2 mg Morphine Sulfate (Morphine 4 Mg/Ml Sdv 1 Ml) 4 mg IVP Q4H PRN PRN Reason: SEVERE PAIN Nifedipine (Nifedipine Er (24 Hr) 30 Mg Tablet) 120 mg PO DAILY [facility] Last Admin: 04/26/24 08:26 Dose: 120 mg Ondansetron HCl (Ondansetron 2 Mg/Ml Sdv 2 Ml) 4 mg IVP Q8H PRN PRN Reason: vomiting, or N/V if npo Vitamin D (Cholecalciferol (Vitamin D3) 1,000 Unit Tablet) 2,000 unit PO DAILY [facility] Last Admin: 04/26/24 08:34 Dose: Not Given PFSH Anesthesia Medical History Acute exacerbation of CHF (congestive heart failure) NSTEMI (non-ST elevated myocardial infarction) Pleural effusion Elevated troponin ESRD (end stage renal disease) Hypertension Hyperlipidemia Abnormal stress test COVID-19 Chronic gout Vitamin D deficiency Vitamin B12 deficiency (dietary) anemia History of TIA (transient ischemic attack) Surgical History S/P hemodialysis catheter insertion History of left knee surgery History of right knee surgery Family History Denies family history of Anesthesia complication Bleeding disorder Social History Smoking and tobacco/nicotine status: former use of tobacco/nicotine Alcohol intake: never Substance/Drug Use: never Data Anesthesia 04/26/24 05:06 04/26/24 05:06 Short CBC 04/25/24 04/26/24 Range/Units 17:04 05:06 WBC 8.98 8.51 (3.29-11.43) 10^3/uL Hgb 10.70 L 9.40 L (11.27-16.99) g/dL Hct 33.7 L 30.0 L (37-53) % MCV 90.1 91.5 (82-101) fl Plt Count 266 205 (157-399) 10^3/cmm Neut % (Auto) 71.2 72.3 % Neut # (Auto) 6.40 6.16 (1.8-7.7) 10^3/uL BMP 04/25/24 04/26/24 04/26/24 17:04 05:06 05:06 Sodium 140 Cancelled 139 Potassium 3.8 Cancelled Chloride 95 L Carbon Dioxide 30 H BUN 13 Creatinine 3.6 H Glucose 117 H Calcium 9.6 04/26/24 04/26/24 04/26/24 05:06 05:06 05:06 Sodium Potassium 3.6 Chloride Cancelled 96 L Carbon Dioxide Cancelled 28 BUN Cancelled Creatinine Glucose Calcium 04/26/24 04/26/24 04/26/24 05:06 05:06 05:06 Sodium Potassium Chloride Carbon Dioxide BUN 16 Creatinine Cancelled 4.3 H Glucose Cancelled 80 Calcium Cancelled 04/26/24 05:06 Sodium Potassium Chloride Carbon Dioxide BUN Creatinine Glucose Calcium 8.8 Liver Function 04/25/24 04/26/24 Range/Units 17:04 05:06 Total Bilirubin 0.4 0.4 (0.15-1.2) mg/dL AST 21 18 (0-40) U/L ALT 10 8 (0-41) U/L Alkaline Phosphatase 116 90 (40-130) U/L Albumin 4.3 3.5 (3.5-5.2) g/dL Urine 04/25/24 Range/Units 17:45 Urine Color Yellow (Yellow) Urine Appearance Clear (CLEAR) Urine pH 8.5 A (5-7) Ur Specific [place] 1.013 (1.005-1.030) Urine Protein 3+ A (Negative) Urine Glucose (UA) Negative (Normal) Urine Ketones Negative (Negative) Urine Nitrate Negative (Negative) Urine Bilirubin Negative (Negative) Ur Leukocyte Esterase 1+ A (Negative) Urine RBC 3-5 (0-2) /hpf Urine WBC >100 H (0-5) /hpf Microbiology 04/25/24 17:45 Urine Culture - Preliminary Urine,Clean Catch Cardiac Studies: 2 Echocardiogram 07/28/23 Echocardiogram Limited Views 12/03/23 Sestamibi Stress Test (Cardiology) 12/04
[2024-04-26 16:09] LABS: Anion Gap 17.9 (5-19); Blood Urea Nitrogen 20 mg/dL (8-23); Calcium 8.6 mg/dL (8.5-10.5); Carbon Dioxide 28 mmol/L (22-29); Chloride 96 mmol/L (98-107); Creatinine Clr Calc Pharmacy 12.1086; Glucose 74 mg/dL (65-115); Osmolality Calculated 287 mOsm/kg (285-295); Potassium 3.9 mmol/L (3.5-5.1); Sodium 138 mmol/L (136-145)
[2024-04-26] MEDS: ceFAZolin 2,000 mg SDV 2000 MG IVP ×2 (16:42→23:07)
[2024-04-26] MEDS: ceFAZolin 1,000 mg SDV 1000 MG IRRIGATION (17:18)
[2024-04-26] MEDS: BUPivacaine 0.5% INJ 30 mL INJECTION (17:50)
--- NOTE | 2024-04-26 18:04 | P.OP_ITS ---
Operative Report Date of procedure: April 26, 2024 Pre-op diagnosis: Left intertrochanteric hip fracture, comminuted, displaced, and angulated Post-op diagnosis: Left intertrochanteric hip fracture, comminuted, displaced, and angulated Post-op findings: Comminuted intertrochanteric left hip fracture. Procedure done: Open reduction internal fixation left comminuted displaced angulated intertrochanteric left hip fracture Implants: Gamma 3 trochanteric nail size 11 mm x 180 mm x 125 degree with a 10.5 mm x 110 mm trochanteric lag screw and the distal screw 5 mm x 45 mm Specimens removed/disposition: None Pathology: None Surgeon: Nika Donald MD Cemetery Laborer: None Anesthesia: General (Per LMA, ASA 3) Estimated blood loss (mL): 30 IV fluids (mL): 400 Urine output (mL): 300 Complications: None Findings: As noted above Condition: stable Disposition: PACU (Then return to floor for postoperative rehabilitation and pain management) Brief History: This 84-year-old gentleman presented to the emergency department after a fall at home when he was attempting to daniel a squirrel off the electrical wire coming into his home. He slipped and fell behind the rocker chair on his porch, and suffered the above injury. He was brought to the emergency department where x- rays demonstrated a comminuted, displaced, angulated intertrochanteric left hip fracture. Procedure: Patient is brought to the operating theater. After undergoing adequate general anesthesia per LMA, ASA 3, the patient was transferred to the fracture table, positioned on the table and fluoroscopic guidance obtained throughout the surgical procedure. Prior to the commencement of the surgical procedure, a surgical pause was performed. At the time of the surgical pause, we confirmed the site and side of surgery as well as preoperative surgical markings and appropriate and timely administration of IV antibiotics, Ancef 2 g. Availability of equipment was also confirmed. Fluoroscopy was used to confirm the fracture was appropriately reduced in both AP and lateral planes. An incision was then made slightly above the greater trochanter to allow access to the greater trochanter. An awl was used to enter the greater trochanter and a guidewire was subsequently placed. Once the guidewire was confirmed to be in appropriate position in AP and lateral planes, reaming was accomplished over this to allow for the proximal diameter of the nail. Guidewire was then removed. An 11 mm x 180 mm x 125 degree gamma 3 trochanteric nail was placed into appropriate position with positioning being confirmed in AP and lateral planes on the x-ray. It passed without difficulty. Guidewire was then passed through the jigging system into the femoral head. We wanted to be center or s lightly inferior and posterior to center. Guidewire was placed into appropriate position. Once the guidewire was in appropriate position and this position was confirmed by x-ray. This was then measured and we chose a 10.5 mm x 110 mm lag screw. We reamed to allow for the lag screw to be placed. The 110 mm lag screw was then passed into the femoral head through the trochanteric nail. This was pa ssed uneventfully and again position was confirmed in AP and lateral planes. Compression was obtained under fluoroscopic guidance. The set screw was then placed in position, tightened completely, and subsequently backed off one- quarter turn. The construct was left in position and attention was directed distally. Cannulas were again used to determine appropriate placement for the distal screw. This was placed in position without difficulty. It was measured off of the drill. The appropriate length screw was then obtained and placed in position without difficulty. Once the screw was in position, we confirmed appropriate placement of the components, and we removed the jigging system. Attention was then directed to closure. The hip was copiously irrigated with normal saline with antibiotics. Following this it was dried and closed. Tensor fascia jefferson was closed proximally with 0 Vicryl in an interrupted fashion. Subcutaneous tissues were closed with 2-0 Monocryl, and the skin was closed with a continuous 3-0 Monocryl subcuticular stitch. This was then covered with Dermabond, Steri- Strips, and OpSite. The patient was removed from the fracture table and returned to recovery in satisfactory condition. The patient will be discharged to the floor for postoperative rehabilitation and pain management. There were no specimens obtained. Related Problem List Diagnoses (1) Closed intertrochanteric fracture of left hip:
--- NOTE | 2024-04-26 18:46 | ANE.PACU2 ---
Inpatient post-anesthesia follow up: Airway intact: Yes Vital signs: Temperature 100.0 F Pulse Rate 68 Respiratory Rate 17 Blood Pressure 134/51 Pulse Oximetry 93 Oxygen Delivery Me thod Oxymask Oxygen Flow Rate 6 Fraction of Inspir ed Oxygen Hydration adequate: Yes Nausea and vomiting: No Pain level: 1 Mental status: Baseline
--- NOTE | 2024-04-26 18:57 | PC.NURSE ---
1851 - Skylar RN into room to accept pt - left hip dressing c/d/i - vss at BP 121/67 - pulse 75 - 02 91% 3LNC temp 97.9 family at side
[2024-04-26] MEDS: acetaminophen 325 mg Tablet 650 MG PO (21:01)
[2024-04-27] VITALS (11 sets, daily range): BP systolic 116–167; BP diastolic 45–61; PULSE 63–73; RESP 14–20; TEMP 36.7–37.8; O2SAT 90–97
[2024-04-27] MEDS: heparin 5,000 unit/mL INJ 1 mL 5000 UNIT SUBCUT ×2 (05:30→16:51)
[2024-04-27 05:58] LABS: Alanine Aminotransferase 7 U/L (0-41); Albumin Level 3.4 g/dL (3.5-5.2); Alkaline Phosphatase 79 U/L (40-130); Anion Gap 15.5 (5-19); Aspartate Amino Transferase 15 U/L (0-40); Blood Urea Nitrogen 29 mg/dL (8-23); Calcium 8.5 mg/dL (8.5-10.5); Carbon Dioxide 30 mmol/L (22-29); Chloride 97 mmol/L (98-107); Creatinine Clr Calc Pharmacy 10.2579; Globulin 3.1 g/dL (1.3-4.6); Glucose 141 mg/dL (65-115); Magnesium 2.1 mg/dL (1.7-2.3); Osmolality Calculated 294 mOsm/kg (285-295); Phosphorus 6.1 mg/dL (2.5-4.5); Potassium 4.5 mmol/L (3.5-5.1); Sodium 138 mmol/L (136-145); Total Bilirubin 0.3 mg/dL (0.15-1.2); Total Protein 6.5 g/dL (6.6-8.7)
--- NOTE | 2024-04-27 07:49 | PM.PN ---
Subjective Subjective: The patient was seen and examined. Patient is short of breath requiring 5 L oxygen facemask. He has nausea. He is status post operating room yesterday. Still has hip pain no chest pain. Not eating well. Medications: Reviewed: Yes Medication Review Details: Current Medications Acetaminophen (Acetaminophen 325 Mg Tablet) 650 mg PO Q6H PRN PRN Reason: Mild/Mod Pain Or Temp >/= 101 Last Admin: 04/26/24 21:01 Dose: 650 mg Hydrocodone Bitart/Acetaminophen (Hydrocodone-Acetaminophen 5-325 Mg Tablet) 1 - 2 tab PO Q4H PRN PRN Reason: BREAKTHROUGH PAIN Albuterol/Ipratropium (Ipratropium-Albuterol 3 Ml Neb) 3 ml INHALATION Q6H PRN PRN Reason: SHORTNESS OF BREATH Allopurinol (Allopurinol 100 Mg Tablet) 100 mg PO DAILY [facility] Last Admin: 04/26/24 08:27 Dose: 100 mg Aspirin (Aspirin 325 Mg Ec Tablet) 325 mg PO DAILY [facility] Atorvastatin Calcium (Atorvastatin 40 Mg Tablet) 20 mg PO QPM [facility] Last Admin: 04/25/24 20:04 Dose: 20 mg Calcium Acetate (Calcium Acetate 667 Mg Capsule) 667 mg PO BID [facility] Last Admin: 04/26/24 08:34 Dose: Not Given Carvedilol (Carvedilol 25 Mg Tablet) 25 mg PO BID [facility] Last Admin: 04/26/24 08:27 Dose: 25 mg Cefazolin Sodium (Cefazolin 2,000 Mg Sdv) 2,000 mg IVP Q12H [facility]; Protocol Stop: 04/27/24 10:46 Last Admin: 04/26/24 23:07 Dose: 2,000 mg Heparin Sodium (Porcine) (Heparin 5,000 Unit/Ml Inj 1 Ml) 5,000 unit SUBCUT Q12H [facility] Last Admin: 04/27/24 05:30 Dose: 5,000 unit Hydralazine HCl (Hydralazine 20 Mg/Ml Inj 1 Ml) 10 mg IVP Q4H PRN PRN Reason: bp>180/100 Last Admin: 04/26/24 04:40 Dose: 10 mg Hydralazine HCl (Hydralazine 25 Mg Tablet) 25 mg PO QID [facility] Last Admin: 04/26/24 21:01 Dose: 25 mg Losartan Potassium (Losartan 50 Mg Tablet) 25 mg PO DAILY [facility] Last Admin: 04/26/24 08:27 Dose: 25 mg Morphine Sulfate (Morphine 4 Mg/Ml Sdv 1 Ml) 2 mg IVP Q4H PRN PRN Reason: SEVERE PAIN Last Admin: 04/26/24 09:29 Dose: 2 mg Morphine Sulfate (Morphine 4 Mg/Ml Sdv 1 Ml) 4 mg IVP Q4H PRN PRN Reason: SEVERE PAIN Nifedipine (Nifedipine Er (24 Hr) 30 Mg Tablet) 120 mg PO DAILY [facility] Last Admin: 04/26/24 08:26 Dose: 120 mg Ondansetron HCl (Ondansetron 2 Mg/Ml Sdv 2 Ml) 4 mg IVP Q8H PRN PRN Reason: vomiting, or N/V if npo Ondansetron HCl (Ondansetron 2 Mg/Ml Sdv 2 Ml) 4 mg IVP Q4H PRN PRN Reason: NAUSEA AND VOMITING Tramadol HCl (Tramadol 50 Mg Tablet) 50 mg PO Q4H PRN PRN Reason: MILD TO MODERATE PAIN Vitamin D (Cholecalciferol (Vitamin D3) 1,000 Unit Tablet) 2,000 unit PO DAILY [facility] Last Admin: 04/26/24 08:34 Dose: Not Given Vitals/I&O/Wt Last Vital Signs Temp 98.8 F 04/27/24 04:00 Pulse 63 04/27/24 04:00 Resp 14 04/27/24 04:00 BP 142/61 04/27/24 04:00 Pulse Ox 97 04/27/24 04:00 O2 Del Method Oxymask 04/27/24 04:00 O2 Flow Rate 3 04/26/24 18:46 04/26/24 04/27/24 04/27/24 22:59 06:59 14:59 Intake Total 630 / 1130 Output Total 630 / 2630 0 / 2630 Balance 0 / -1500 0 / -1500 Weight last 48 hrs Weight 74.956 kg Weight 69.853 kg Weight 70.2 kg Weight 67.812 kg Weight 69.082 kg Weight 77.111 kg Physical Exam Narrative: Short of breath sitting up in bed using facemask oxygen. Blood pressure elevated. HEENT normocephalic atraumatic. Neck is supple lungs are clear. Heart is regular positive S1-S2. Lungs have rhonchi and wheezes bilaterally. Abdomen is soft positive bowel sounds. Patient has a left upper extremity fistula. Patient has tenderness by left hip . 1+ bilateral leg edema. Neuro awake alert oriented x 3 Urinary Catheter Management: Sepulveda: Cath Placed During This Visit: yes, but has since been removed by the nurse Reason for Continuing Indwelling Catheter: Decision to DC Catheter Date Urinary Catheter Removed: 04/27/24 Time Urinary Catheter Discontinued: 05:45 Data 04/26/24 05:06 04/27/24 05:15 Micro: Microbiology 04/25/24 17:45 Urine Culture - Preliminary Urine,Clean Catch A&P Assessment and plan (1) ESRD (end stage renal disease): 84-year-old gentleman ESRD hypertension heart failure preserved EF with mild to moderate aortic stenosis. The patient is status post left hip fracture from a fall on 04-25-24 - patient is being evaluated for possible surgery. 1. ESRD-status post extra extra SUF yesterday Patient is very short of breath now. Will dialyze again. 2. htn-will lower medications as blood pressure is now normal and 1 to get fluid off on dialysis. 3. Anemia monitor hemoglobin is ok- epo to start today. iron sat 15%, ferritin 2092- no iv iron 4. Heart failure preserved EF w/ EXT edema and JAYDEN inhibitor. 5. pth 70- no vit d analouge. may be able to lower phoslo 6. If shortness of breath does not improve on dialysis. Then please evaluate with chest x-ray and question CT scan. Will follow along with you. The patient was seen and examined using A/V equipment as a telehealth visit. The patient consented to hemodialysis and telehealth. Plan See above. dec medications. Evaluate shortness of breath and treat appropriately. Attestations Medical Necessity Statement*: Shortness of breath status post hip fracture repair. ESRD. Time Spent in Patient Care: 16 - 35 minutes (>than 50% of time spent in counselling and/or direct pt care on unit). Coding Level of Care Code Acute Code for [facility] Diagnoses ESRD (end stage renal disease) N18.6
--- NOTE | 2024-04-27 09:09 | PC.NURSE ---
Pt increases on oxygen need to 10L/oxymask. Adventitious lung sounds noted - coarse, expiratory wheezing. Slight swelling noted to lower extremities. Notified Dr. Coats - telenephrologist via phone. Pt will be be next for dialysis.
[2024-04-27] MEDS: EPOETIN ALFA-EPBX 10,000 UNIT/ML SDV (ESRD) 10000 UNIT SUBCUT (10:28)
[2024-04-27] MEDS: carvedilol 25 mg Tablet PO ×2 (10:28→16:50)
[2024-04-27] MEDS: allopurinol 100 mg Tablet PO (10:28)
[2024-04-27] MEDS: NIFEdipine ER (24 hr) 30 mg Tablet 120 MG PO (10:28)
[2024-04-27] MEDS: cholecalciferol (vitamin D3) 1,000 unit Tablet 2000 UNIT PO (10:28)
[2024-04-27] MEDS: calcium acetate 667 mg Capsule PO ×2 (10:29→16:50)
[2024-04-27] MEDS: aspirin 325 mg EC Tablet PO (10:29)
--- NOTE | 2024-04-27 11:44 | PC.NURSE ---
In dialysis at this time. Titrated down to 4L. Tolerates well. Oxygen saturation 95%.
--- NOTE | 2024-04-27 12:49 | PC.OT ---
OT EVALUATION ATTEMPTED. PATIENT IN DIALYSIS AT THIS TIME. WILL ATTEMPT AGAIN AT A LATER TIME.
[2024-04-27] MEDS: ipratropium-albuterol 3 mL Neb INHALATION ×2 (13:54→20:47)
[2024-04-27] MEDS: HYDROcodone-acetaminophen 5-325 mg Tablet PO (15:06)
[2024-04-27] MEDS: ceFAZolin 2,000 mg SDV 2000 MG IVP (15:06)
--- NOTE | 2024-04-27 16:21 | PC.OT ---
OT EVALUATION ATTEMPTED AGAIN IN P.M. MULTIPLE FAMILY MEMBERS IN ROOM AND PATIENT EATING LUNCH.
[2024-04-27] MEDS: atorvastatin 40 mg Tablet 20 MG PO (16:50)
--- NOTE | 2024-04-27 17:42 | P.PN_ITS ---
Subjective 2 Subjective: This morning patient was noted to be more short of breath, oxygen requirement at 10 L/min via oxime mask. Patient has a history of COPD and takes albuterol inhaler at home. He is also typically on home oxygen at 4 L/min, however he likes to use it as needed only. He denies any formal diagnosis of COPD however in reviewing his x-rays dating back to 2020, patient has extensive pleural parenchymal changes and interstitial opacities which may be public service representative of a chronic airway disease such as emphysema or chronic bronchitis. Also noted per personal review of images from admission is a right sided pleural effusion. Medications: Reviewed: Yes Medication Review Details: Current Medications Acetaminophen (Acetaminophen 325 Mg Tablet) 650 mg PO Q6H PRN PRN Reason: Mild/Mod Pain Or Temp >/= 101 Last Admin: 04/26/24 21:01 Dose: 650 mg Hydrocodone Bitart/Acetaminophen (Hydrocodone-Acetaminophen 5-325 Mg Tablet) 1 - 2 tab PO Q4H PRN PRN Reason: BREAKTHROUGH PAIN Albuterol/Ipratropium (Ipratropium-Albuterol 3 Ml Neb) 3 ml INHALATION Q6H PRN PRN Reason: SHORTNESS OF BREATH Allopurinol (Allopurinol 100 Mg Tablet) 100 mg PO DAILY [facility] Last Admin: 04/26/24 08:27 Dose: 100 mg Aspirin (Aspirin 325 Mg Ec Tablet) 325 mg PO DAILY [facility] Atorvastatin Calcium (Atorvastatin 40 Mg Tablet) 20 mg PO QPM [facility] Last Admin: 04/25/24 20:04 Dose: 20 mg Calcium Acetate (Calcium Acetate 667 Mg Capsule) 667 mg PO BID [facility] Last Admin: 04/26/24 08:34 Dose: Not Given Carvedilol (Carvedilol 25 Mg Tablet) 25 mg PO BID [facility] Last Admin: 04/26/24 08:27 Dose: 25 mg Cefazolin Sodium (Cefazolin 2,000 Mg Sdv) 2,000 mg IVP Q12H [facility]; Protocol Stop: 04/27/24 10:46 Last Admin: 04/26/24 23:07 Dose: 2,000 mg Heparin Sodium (Porcine) (Heparin 5,000 Unit/Ml Inj 1 Ml) 5,000 unit SUBCUT Q12H [facility] Last Admin: 04/27/24 05:30 Dose: 5,000 unit Hydralazine HCl (Hydralazine 20 Mg/Ml Inj 1 Ml) 10 mg IVP Q4H PRN PRN Reason: bp>180/100 Last Admin: 04/26/24 04:40 Dose: 10 mg Hydralazine HCl (Hydralazine 25 Mg Tablet) 25 mg PO QID [facility] Last Admin: 04/26/24 21:01 Dose: 25 mg Losartan Potassium (Losartan 50 Mg Tablet) 25 mg PO DAILY [facility] Last Admin: 04/26/24 08:27 Dose: 25 mg Morphine Sulfate (Morphine 4 Mg/Ml Sdv 1 Ml) 2 mg IVP Q4H PRN PRN Reason: SEVERE PAIN Last Admin: 04/26/24 09:29 Dose: 2 mg Morphine Sulfate (Morphine 4 Mg/Ml Sdv 1 Ml) 4 mg IVP Q4H PRN PRN Reason: SEVERE PAIN Nifedipine (Nifedipine Er (24 Hr) 30 Mg Tablet) 120 mg PO DAILY [facility] Last Admin: 04/26/24 08:26 Dose: 120 mg Ondansetron HCl (Ondansetron 2 Mg/Ml Sdv 2 Ml) 4 mg IVP Q8H PRN PRN Reason: vomiting, or N/V if npo Ondansetron HCl (Ondansetron 2 Mg/Ml Sdv 2 Ml) 4 mg IVP Q4H PRN PRN Reason: NAUSEA AND VOMITING Tramadol HCl (Tramadol 50 Mg Tablet) 50 mg PO Q4H PRN PRN Reason: MILD TO MODERATE PAIN Vitamin D (Cholecalciferol (Vitamin D3) 1,000 Unit Tablet) 2,000 unit PO DAILY [facility] Last Admin: 04/26/24 08:34 Dose: Not Given Vitals/I&O/Wt Last Vital Signs Temp 98.2 F 04/27/24 16:11 Pulse 72 04/27/24 16:11 Resp 16 04/27/24 16:11 BP 167/50 04/27/24 16:11 Pulse Ox 90 04/27/24 15:21 O2 Del Method Nasal Cannula 04/27/24 15:21 O2 Flow Rate 4 04/27/24 15:21 04/27/24 04/27/24 04/27/24 06:59 14:59 22:59 Intake Total 240 / 240 500 / 740 Output Total 0 / 2630 2500 / 2500 Balance 0 / -1500 240 / 240 -2000 / -1760 Weight last 48 hrs Weight 73.5 kg Weight 74.956 kg Weight 69.853 kg Weight 70.2 kg Weight 67.812 kg Weight 69.082 kg Physical Exam 2 Narrative: General: Chronically ill-appearing male in no acute distress in spite of being on an oxime mask at this time. HEENT: PERRLA, pupils bilaterally equal and reactive, pallors not present Chest: Normal vesicular breath sounds, no added sounds, equal good air entry bilaterally CVS: S1-S2 regular, no murmurs, no tachycardia, no gallops, no rubs Abdomen: Soft, nontender, no organomegaly, bowel sounds present Neuro: No focal deficits, no facial deformity, AO x3, power 5/5 in all limbs Extremities: No edema clubbing or cyanosis Urinary Catheter Management: Sepulveda: Cath Placed During This Visit: yes, but has since been removed by the nurse Reason for Continuing Indwelling Catheter: Decision to DC Catheter Date Urinary Catheter Removed: 04/27/24 Time Urinary Catheter Discontinued: 05:45 Data 04/26/24 05:06 04/27/24 05:15 Micro: Microbiology 04/25/24 17:45 Urine Culture - Preliminary Urine,Clean Catch A&P Assessment and plan (1) ESRD (end stage renal disease): (2) Fracture of hip, left, closed: (3) Chronic gout: (4) Pleural effusion: (5) Hypertensive urgency: (6) Fall: Plan Mechanical fall Hip fracture Dr. Lee consulted Patient will be kept n.p.o. after midnight Opioids along bowel regimen End-stage renal disease Wednesday last session was on Wednesday, he does have passive congestion but clinically does not look extremely fluid overloaded Nephro consulted, we may have to dialyze him on Wednesday in order to optimize him for surgery Chronic hypoxia requires 2 L of oxygen he uses mostly at nighttime Patient is not on any anticoagulating agent Hypertensive urgency avoid lisinopril in perioperative time Would use hydralazine, nifedipine, Coreg and keep IV hydralazine on board as well DNR/DNI discussed with the patient Lives alone Recent type II [place] stress test showed small jaylan-infarct ischemia which was managed medically as per cardiology Renal diet and then n.p.o. after midnight DVT prophylaxis: SCDs 04/25/2024 -Plan for surgery today. ? Patient underwent dialysis this morning. ? Continue nifedipine Coreg IV hydralazine and oral hydralazine. ? Nephrology following ? Orthopedic surgery consulted. Plan for procedure around 3 PM today. 04/27/2024 Patient is status post open reduction internal fixation of a left comminuted displaced intertrochanteric fracture on 04/26/2024. No immediate postoperative complications. This morning patient was noted to have a higher oxygen requirement at 10 L/min. Typically patient uses 4 L/min supplemental O2 at home. He is very reluctant to provide history, however on questioning specifically relays that he is an ex-smoker. He smoked for over 50 years and quit sometime in his 60s. He uses an albuterol inhaler at home. In reviewing his x-ray images dating back to 2020, he has chronic parenchymal changes which appear to represent chronic bronchitis versus emphysema. Do not see a PFT on record for him to make a formal diagnosis but highly suspect underlying COPD. Add DuoNebs every 6 hours scheduled. Add budesonide 0.5 mg twice daily. Additionally also noted right-sided pleural effusion from admission chest x-ray, patient is scheduled for dialysis today. Will resume patient's oral antihypertensive regimen. Addition of steroids if fails to improve with addition of inhaled steroids and bronchodilators. PT OT evaluation, appropriate disposition planning Attestations 2 Medical Necessity Statement*: Add scheduled inhalation as above, dialysis today, disposition planning and therapy assessments Coding Level of Care Code Acute Code for Chg Fwd High MDM includes number and complexity of problems actively addressed during encounter, amount and/or complexity of data reviewed/ordered and described risk of complication, morbidity or mortality of management as documented Diagnoses ESRD (end stage renal disease) N18.6 Fracture of hip, left, closed S72.002A Chronic gout [id number].[id number] Pleural effusion J90 Hypertensive urgency I16.0 Fall W19.XXXA
--- NOTE | 2024-04-27 20:31 | P.PN_ITS ---
Subjective 2 Subjective: Patient was noted to have difficulty breathing this morning with an elevated oxygen requirement. After evaluation, he was scheduled for dialysis. Plans are being made for his discharge to longterm. When he is seen in his room, he notes he feels he is doing well. Medications: Reviewed: Yes Medication Review Details: Current Medications Acetaminophen (Acetaminophen 325 Mg Tablet) 650 mg PO Q6H PRN PRN Reason: Mild/Mod Pain Or Temp >/= 101 Last Admin: 04/26/24 21:01 Dose: 650 mg Hydrocodone Bitart/Acetaminophen (Hydrocodone-Acetaminophen 5-325 Mg Tablet) 1 - 2 tab PO Q4H PRN PRN Reason: BREAKTHROUGH PAIN Albuterol/Ipratropium (Ipratropium-Albuterol 3 Ml Neb) 3 ml INHALATION Q6H PRN PRN Reason: SHORTNESS OF BREATH Allopurinol (Allopurinol 100 Mg Tablet) 100 mg PO DAILY [facility] Last Admin: 04/26/24 08:27 Dose: 100 mg Aspirin (Aspirin 325 Mg Ec Tablet) 325 mg PO DAILY [facility] Atorvastatin Calcium (Atorvastatin 40 Mg Tablet) 20 mg PO QPM [facility] Last Admin: 04/25/24 20:04 Dose: 20 mg Calcium Acetate (Calcium Acetate 667 Mg Capsule) 667 mg PO BID [facility] Last Admin: 04/26/24 08:34 Dose: Not Given Carvedilol (Carvedilol 25 Mg Tablet) 25 mg PO BID [facility] Last Admin: 04/26/24 08:27 Dose: 25 mg Cefazolin Sodium (Cefazolin 2,000 Mg Sdv) 2,000 mg IVP Q12H [facility]; Protocol Stop: 04/27/24 10:46 Last Admin: 04/26/24 23:07 Dose: 2,000 mg Heparin Sodium (Porcine) (Heparin 5,000 Unit/Ml Inj 1 Ml) 5,000 unit SUBCUT Q12H [facility] Last Admin: 04/27/24 05:30 Dose: 5,000 unit Hydralazine HCl (Hydralazine 20 Mg/Ml Inj 1 Ml) 10 mg IVP Q4H PRN PRN Reason: bp>180/100 Last Admin: 04/26/24 04:40 Dose: 10 mg Hydralazine HCl (Hydralazine 25 Mg Tablet) 25 mg PO QID [facility] Last Admin: 04/26/24 21:01 Dose: 25 mg Losartan Potassium (Losartan 50 Mg Tablet) 25 mg PO DAILY [facility] Last Admin: 04/26/24 08:27 Dose: 25 mg Morphine Sulfate (Morphine 4 Mg/Ml Sdv 1 Ml) 2 mg IVP Q4H PRN PRN Reason: SEVERE PAIN Last Admin: 04/26/24 09:29 Dose: 2 mg Morphine Sulfate (Morphine 4 Mg/Ml Sdv 1 Ml) 4 mg IVP Q4H PRN PRN Reason: SEVERE PAIN Nifedipine (Nifedipine Er (24 Hr) 30 Mg Tablet) 120 mg PO DAILY [facility] Last Admin: 04/26/24 08:26 Dose: 120 mg Ondansetron HCl (Ondansetron 2 Mg/Ml Sdv 2 Ml) 4 mg IVP Q8H PRN PRN Reason: vomiting, or N/V if npo Ondansetron HCl (Ondansetron 2 Mg/Ml Sdv 2 Ml) 4 mg IVP Q4H PRN PRN Reason: NAUSEA AND VOMITING Tramadol HCl (Tramadol 50 Mg Tablet) 50 mg PO Q4H PRN PRN Reason: MILD TO MODERATE PAIN Vitamin D (Cholecalciferol (Vitamin D3) 1,000 Unit Tablet) 2,000 unit PO DAILY [facility] Last Admin: 04/26/24 08:34 Dose: Not Given Vitals/I&O/Wt Last Vital Signs Temp 98.2 F 04/27/24 16:11 Pulse 72 04/27/24 16:11 Resp 16 04/27/24 16:11 BP 167/50 04/27/24 16:11 Pulse Ox 90 04/27/24 15:21 O2 Del Method Nasal Cannula 04/27/24 15:21 O2 Flow Rate 4 04/27/24 15:21 04/27/24 04/27/24 04/27/24 06:59 14:59 22:59 Intake Total 240 / 240 740 / 980 Output Total 0 / 2630 2500 / 2500 Balance 0 / -1500 240 / 240 -1760 / -1520 Weight last 48 hrs Weight 162 lb 0.636 oz Weight 165 lb 4 oz Weight 154 lb Weight 154 lb 12.232 oz Weight 149 lb 8 oz Physical Exam 2 Const: COMMON NORMALS: no acute distress, average body habitus, patient oriented x3 and alert GENERAL APPEARANCE: cooperative and comfortable O RIENTATION/CONSCIOUSNESS: Yes awake HENMT: COMMON NORMALS: normocephalic and atraumatic HEAD & SCALP: n ormocephalic and atraumatic Eye: GENERAL EYE: appearance normal, both eyes and all related structures Chest: COMMONS NORMALS: normal inspection of the chest Resp: COMMON NORMALS: normal respiratory effort EFFORT & INSPECTION: Yes able to speak in complete sentences and Yes symmetric chest movement Extremity: LEFT LOWER EXTREMITY: Yes hip joint (Dressing is dry and intact.) Left hip: Yes inspection (No significant swelling or ecchymosis), Yes ROM (Not evaluated.) and Yes neurovascular exam (Intact distally with no evidence of DVT) Neuro: COMMON NORMALS: patient oriented x3 SENSORIUM/ORIENTATION: Yes alert Psych: COMMON NORMALS: mental status grossly normal APPEARANCE: Yes grossly normal ATTITUDE: Yes calm and Yes engaged ATTENTION/CONCENTRATION: Yes attention grossly intact Skin: COMMON NORMALS: no rashes or lesions noted GENERAL SKIN EXAM: no rashes or lesions noted Urinary Catheter Management: Sepulveda: Cath Placed During This Visit: yes, but has since been removed by the nurse Reason for Continuing Indwelling Catheter: Decision to DC Catheter Date Urinary Catheter Removed: 04/27/24 Time Urinary Catheter Discontinued: 05:45 Data 04/26/24 05:06 04/27/24 05:15 Micro: Microbiology 04/25/24 17:45 Urine Culture - Preliminary Urine,Clean Catch A&P Assessment and plan (1) Closed intertrochanteric fracture of left hip: Patient was admitted through the emergency department with diagnosis of a comminuted angulated displaced intertrochanteric left hip fracture. He was seen today after admission. Patient was dialyzed and subsequently, he underwent open reduction internal fixation of his left intertrochanteric hip fracture. Today, he received his second dialysis while hospitalized. He worked with physical therapy and plans are being made for his discharge to longterm. He is seen in his room where he is neurologically intact. There is no evidence of DVT. Questions were answered. Qualifiers: Encounter type: initial encounter Fracture alignment: displaced Qualified Code(s): S72.142A - Displaced intertrochanteric fracture of left femur, initial encounter for closed fracture Attestations 2 Medical Necessity Statement*: Per hospitalist team Coding Level of Care Code Acute Code for [facility] Fwd Diagnoses Closed displaced intertrochanteric fracture of left femur, initial encounter S72.142A Encounter type: initial encounter Fracture alignment: displaced
[2024-04-27] MEDS: budesonide 0.5 mg/2 mL Neb INHALATION (20:47)
[2024-04-28] VITALS (39 sets, daily range): BP systolic 98–140; BP diastolic 40–64; PULSE 58–79; RESP 11–21; TEMP 36.3–37.7; O2SAT 88–98
[2024-04-28] MEDS: ipratropium-albuterol 3 mL Neb INHALATION ×4 (02:38→19:25)
[2024-04-28 05:06] LABS: Basophils % 0.3 %; Eosinophils # 0.1 10^3/uL (0.0-0.8); Eosinophils % 1.2 %; Hematocrit 26.5 % (37-53); Lymphocytes # 1.1 10^3/uL (0.8-4.8); Lymphocytes % 11.5 %; Mean Corpuscular HGB Conc 30.9 g/dL (30-55); Mean Corpuscular Hemoglobin 29.3 pg (27-33); Mean Corpuscular Volume 94.6 fl (82-101); Mean Platelet Volume 10.2 fL (7.4-10.4); Monocytes # 1.4 10^3/uL (0.2-0.9); Monocytes % 14.2 %; Neutrophils # 7.02 10^3/uL (1.8-7.7); Neutrophils % 72.5 %; Nucleated Red Blood Cells % 0 %; Platelet Count 146 10^3/cmm (157-399); White Blood Count 9.68 10^3/uL (3.29-11.43)
[2024-04-28 05:46] LABS: Alanine Aminotransferase < 5 U/L (0-41); Albumin Level 3.3 g/dL (3.5-5.2); Alkaline Phosphatase 76 U/L (40-130); Anion Gap 14.2 (5-19); Aspartate Amino Transferase 19 U/L (0-40); Blood Urea Nitrogen 18 mg/dL (8-23); Calcium 7.9 mg/dL (8.5-10.5); Carbon Dioxide 29 mmol/L (22-29); Chloride 92 mmol/L (98-107); Creatinine Clr Calc Pharmacy 13.3543; Globulin 2.8 g/dL (1.3-4.6); Glucose 109 mg/dL (65-115); Magnesium 1.8 mg/dL (1.7-2.3); Osmolality Calculated 274 mOsm/kg (285-295); Phosphorus 3.1 mg/dL (2.5-4.5); Potassium 4.2 mmol/L (3.5-5.1); Sodium 131 mmol/L (136-145); Total Bilirubin 0.3 mg/dL (0.15-1.2); Total Protein 6.1 g/dL (6.6-8.7)
[2024-04-28] MEDS: heparin 5,000 unit/mL INJ 1 mL 5000 UNIT SUBCUT ×2 (06:07→17:31)
[2024-04-28] MEDS: budesonide 0.5 mg/2 mL Neb INHALATION ×2 (08:17→19:24)
[2024-04-28] MEDS: cholecalciferol (vitamin D3) 1,000 unit Tablet 2000 UNIT PO (08:36)
[2024-04-28] MEDS: calcium acetate 667 mg Capsule PO ×2 (08:37→17:33)
[2024-04-28] MEDS: allopurinol 100 mg Tablet PO (08:37)
[2024-04-28] MEDS: aspirin 325 mg EC Tablet PO (08:37)
[2024-04-28] MEDS: carvedilol 25 mg Tablet PO (08:38)
[2024-04-28 09:18] LABS: SARS Covid-2 Antigen Negative (Negative)
--- NOTE | 2024-04-28 10:32 | PC.SOCIAL ---
IMM UPdate pg 2 of IMM Updated and reviewed w/ patient. Copy provided and copy dated, initialed and placed in chart.
--- NOTE | 2024-04-28 11:10 | PC.NURSE ---
Pt in pain with movement - would like pain medication prior to PT. Pt in dialysis now.
[2024-04-28] MEDS: HYDROcodone-acetaminophen 5-325 mg Tablet PO (12:20)
--- NOTE | 2024-04-28 12:36 | CTR_ITS ---
PROCEDURE INFORMATION: Exam: CTA Chest With Contrast Exam date and time: 04/28/2024 1:08 PM Age: 84 years old Clinical indication: Shortness of breath; Prior surgery; Surgery date: 3-7 days post-operative; Surgery type: Lt hip; Additional info: Hypoxia, evaluate for pe TECHNIQUE: Imaging protocol: Computed tomographic angiography of the chest with contrast. Exam focused on the arteries. 3D rendering (Not supervised by radiologist): MIP and/or 3D reconstructed images were created by the technologist. Radiation optimization: All CT scans at this facility use at least one of these dose optimization techniques: automated exposure control; mA and/or kV adjustment per patient size (includes targeted exams where dose is matched to clinical indication); or iterative reconstruction. Contrast material: OMNI 350; Contrast volume: 77 ml; Contrast route: INTRAVENOUS (IV); COMPARISON: CT angio chest PE protcl [id number] 12/06/2023 1:00 PM RADIATION DOSE METRICS: Total DLP (mGy-cm): 322.77 FINDINGS: Pulmonary arteries: No filling defects in the pulmonary arteries to suggest pulmonary embolism. Aorta: Stable extensive atherosclerotic changes in the visualized arteries. 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 Evaluation for aortic dissection is limited due to the phase of contrast-enhancement. Lungs: Mucus plugging in the right mainstem bronchus, the right upper, middle, and lower lobe bronchi and left lower lobe bronchi. Increasing compressive atelectasis in the right middle lobe and right and left lower lobes, underlying pneumonia cannot be ruled out. Mild interstitial pulmonary edema. Multiple calcified granulomas in both lungs. Pleural spaces: Moderate/large bilateral pleural effusions, larger on the right have increased in size. Stable bilateral diaphragmatic and pleural calcifications. Heart: Stable marked enlargement of the heart. Calcification of the aortic valve and mitral valve annulus. Coronary arteries: Stable extensive atherosclerotic calcification in the coronary arteries. Esophagus: Fluid in the thoracic esophagus. Mediastinal space: No mediastinal hematoma. No pneumomediastinum. Lymph nodes: No lymphadenopathy. Liver: Multiple calcified granulomas in the liver. Spleen: Multiple calcified granulomas in the spleen. Adrenal glands: The visualized right and left adrenal glands are unremarkable. Bones/joints: Bones are diffusely osteopenic. Degenerative changes in the spine and shoulders. Soft tissues: No acute abnormality in the extrathoracic soft tissues. CT/CT angio chest PE protcl [id number] IMPRESSION: 1. Mucus plugging in the right mainstem bronchus, the right upper, middle, and lower lobe bronchi and left lower lobe bronchi. 2. Moderate/large bilateral pleural effusions, larger on the right have increased in size. 3. Increasing compressive atelectasis in the right middle lobe and right and left lower lobes, underlying pneumonia cannot be ruled out. Recommend followup chest imaging to insure resolution of these findings. 4. Mild interstitial pulmonary edema. 5. No evidence for pulmonary embolism. 6. 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 7. Fluid in the thoracic esophagus. This could be due to retained esophageal contents from poor esophageal motility versus gastroesophageal reflux. Recommend clinical correlation. Upper GI examination may be obtained for further evaluation as clinically indicated. 8. Stable bilateral diaphragmatic and pleural calcifications. Differential diagnosis includes asbestos related pleural disease versus sequela of prior trauma or infection. Impression. Last. Incidental/nonacute findings are listed in the report.
[2024-04-28] MEDS: iohexol 350 mg/mL 500 mL Btl (per mL) IV (13:16)
--- NOTE | 2024-04-28 13:22 | PM.PN ---
Subjective Subjective: Transiently hypotensive today in dialysis. He is more lethargic today however able to be awakened easily, alert awake oriented when awake. Stated he slept poorly. Oxygen requirement at 6 L/min earlier this morning, since this afternoon has been trending up now at 15 L/min via oxime mask. ABG performed shows acute on chronic hypoxic hypercapnic respiratory failure. pO2 of 51.9 on 15 L/min O2. Medications: Reviewed: Yes Medication Review Details: Current Medications Acetaminophen (Acetaminophen 325 Mg Tablet) 650 mg PO Q6H PRN PRN Reason: Mild/Mod Pain Or Temp >/= 101 Last Admin: 04/26/24 21:01 Dose: 650 mg Hydrocodone Bitart/Acetaminophen (Hydrocodone-Acetaminophen 5-325 Mg Tablet) 1 - 2 tab PO Q4H PRN PRN Reason: BREAKTHROUGH PAIN Albuterol/Ipratropium (Ipratropium-Albuterol 3 Ml Neb) 3 ml INHALATION Q6H PRN PRN Reason: SHORTNESS OF BREATH Allopurinol (Allopurinol 100 Mg Tablet) 100 mg PO DAILY [facility] Last Admin: 04/26/24 08:27 Dose: 100 mg Aspirin (Aspirin 325 Mg Ec Tablet) 325 mg PO DAILY [facility] Atorvastatin Calcium (Atorvastatin 40 Mg Tablet) 20 mg PO QPM [facility] Last Admin: 04/25/24 20:04 Dose: 20 mg Calcium Acetate (Calcium Acetate 667 Mg Capsule) 667 mg PO BID [facility] Last Admin: 04/26/24 08:34 Dose: Not Given Carvedilol (Carvedilol 25 Mg Tablet) 25 mg PO BID [facility] Last Admin: 04/26/24 08:27 Dose: 25 mg Cefazolin Sodium (Cefazolin 2,000 Mg Sdv) 2,000 mg IVP Q12H [facility]; Protocol Stop: 04/27/24 10:46 Last Admin: 04/26/24 23:07 Dose: 2,000 mg Heparin Sodium (Porcine) (Heparin 5,000 Unit/Ml Inj 1 Ml) 5,000 unit SUBCUT Q12H [facility] Last Admin: 04/27/24 05:30 Dose: 5,000 unit Hydralazine HCl (Hydralazine 20 Mg/Ml Inj 1 Ml) 10 mg IVP Q4H PRN PRN Reason: bp>180/100 Last Admin: 04/26/24 04:40 Dose: 10 mg Hydralazine HCl (Hydralazine 25 Mg Tablet) 25 mg PO QID [facility] Last Admin: 04/26/24 21:01 Dose: 25 mg Losartan Potassium (Losartan 50 Mg Tablet) 25 mg PO DAILY [facility] Last Admin: 04/26/24 08:27 Dose: 25 mg Morphine Sulfate (Morphine 4 Mg/Ml Sdv 1 Ml) 2 mg IVP Q4H PRN PRN Reason: SEVERE PAIN Last Admin: 04/26/24 09:29 Dose: 2 mg Morphine Sulfate (Morphine 4 Mg/Ml Sdv 1 Ml) 4 mg IVP Q4H PRN PRN Reason: SEVERE PAIN Nifedipine (Nifedipine Er (24 Hr) 30 Mg Tablet) 120 mg PO DAILY [facility] Last Admin: 04/26/24 08:26 Dose: 120 mg Ondansetron HCl (Ondansetron 2 Mg/Ml Sdv 2 Ml) 4 mg IVP Q8H PRN PRN Reason: vomiting, or N/V if npo Ondansetron HCl (Ondansetron 2 Mg/Ml Sdv 2 Ml) 4 mg IVP Q4H PRN PRN Reason: NAUSEA AND VOMITING Tramadol HCl (Tramadol 50 Mg Tablet) 50 mg PO Q4H PRN PRN Reason: MILD TO MODERATE PAIN Vitamin D (Cholecalciferol (Vitamin D3) 1,000 Unit Tablet) 2,000 unit PO DAILY [facility] Last Admin: 04/26/24 08:34 Dose: Not Given Vitals/I&O/Wt Last Vital Signs Temp 98.6 F 04/28/24 11:12 Pulse 74 04/28/24 11:12 Resp 20 H 04/28/24 11:12 BP 105/47 04/28/24 11:12 Pulse Ox 89 L 04/28/24 11:12 O2 Del Method Nasal Cannula 04/28/24 11:12 O2 Flow Rate 6 04/28/24 11:12 04/27/24 04/28/24 04/28/24 22:59 06:59 14:59 Intake Total 1220 / 1460 120 / 1580 480 / 480 Output Total 2500 / 2500 Balance -1280 / -1040 120 / -920 480 / 480 Weight last 48 hrs Weight 71.532 kg Weight 73.5 kg Weight 74.956 kg Weight 69.853 kg Physical Exam Narrative: General: No acute distress, AO x3, more lethargic compared to yesterday HEENT: PERRLA, pupils bilaterally equal and reactive, pallors not present Chest: Normal vesicular breath sounds, no added sounds, equal good air entry bilaterally CVS: S1-S2 regular, no murmurs, no tachycardia, no gallops, no rubs Abdomen: Soft, nontender, no organomegaly, bowel sounds present Neuro: No focal deficits, no facial deformity, AO x3, power 5/5 in all limbs Extremities: No edema clubbing or cyanosis Urinary Catheter Management: Sepulveda: Cath Placed During This Visit: yes, but has since been removed by the nurse Reason for Continuing Indwelling Catheter: Decision to DC Catheter Date Urinary Catheter Removed: 04/27/24 Time Urinary Catheter Discontinued: 05:45 Data 04/28/24 04:52 04/28/24 04:52 Micro: Microbiology 04/25/24 17:45 Urine Culture - Preliminary Urine,Clean Catch Strep species, gamma-hemolytic A&P Assessment and plan (1) ESRD (end stage renal disease): (2) Fracture of hip, left, closed: (3) Chronic gout: (4) Pleural effusion: (5) Hypertensive urgency: (6) Fall: Plan Mechanical fall Hip fracture Dr. Lee consulted Patient will be kept n.p.o. after midnight Opioids along bowel regimen End-stage renal disease Wednesday last session was on Wednesday, he does have passive congestion but clinically does not look extremely fluid overloaded Nephro consulted, we may have to dialyze him on Wednesday in order to optimize him for surgery Chronic hypoxia requires 2 L of oxygen he uses mostly at nighttime Patient is not on any anticoagulating agent Hypertensive urgency avoid lisinopril in perioperative time Would use hydralazine, nifedipine, Coreg and keep IV hydralazine on board as well DNR/DNI discussed with the patient Lives alone Recent type II NJ stress test showed small jaylan-infarct ischemia which was managed medically as per cardiology Renal diet and then n.p.o. after midnight DVT prophylaxis: SCDs 04/25/2024 -Plan for surgery today. ? Patient underwent dialysis this morning. ? Continue nifedipine Coreg IV hydralazine and oral hydralazine. ? Nephrology following ? Orthopedic surgery consulted. Plan for procedure around 3 PM today. 04/28/2024 Patient is more lethargic today. Oxygen requirement had improved yesterday down to 4 L/min, however since this afternoon trending up to 15 L/min on a nonrebreather mask. ABG as noted above. Concern for possible PE with acutely worsened hypoxia. Check CTA of the chest to evaluate for this possibility. Will transition to heated high flow to maintain O2 sat ~90% patient has been getting scheduled nebulization with DuoNeb and budesonide since yesterday. Will add steroids given worsening hypoxia. Methylprednisolone 60 mg IV every 8 hours. Patient also appearing to be more lethargic somnolent today. He had last received 2 tablets of Emery at 12:20 PM. Will hold any further dose of opiates for now given increased lethargy. Pain management to be with Tylenol and tramadol alternating. Transiently hypotensive in dialysis today. Hold losartan. Reduce dose of carvedilol from 25 mg p.o. twice daily to 12.5 mg p.o. twice daily. Urine culture showing gamma hemolytic strep. Patient was on cefazolin until yesterday to cover for UTI and also cardio prophylaxis. Gamma hemolytic strep may represent Enterococcus, patient has a history of past enterococcal UTIs. Will start vancomycin empirically while pending identification and susceptibility. Hemoglobin at 8.2 today, closely monitor. Patient to benefit from continued hospitalization given worsening hypoxia today, needs further evaluation as noted above. Plan discussed with patient and his sister at bedside. Attestations Medical Necessity Statement*: continued admission for worsening hypoxia Diagnoses ESRD (end stage renal disease) N18.6 Fracture of hip, left, closed S72.002A Chronic gout M1A.9XX0 Pleural effusion J90 Hypertensive urgency I16.0 Fall W19.XXXA
--- NOTE | 2024-04-28 13:23 | PM.PN ---
Subjective Subjective: Patient was seen in his room following dialysis. He was short of breath and complaining of difficulty getting his breath. This was being addressed by the medical team. With regards to his hip, he complained of pain nearly everywhere. He had no pain in his calf on the left side. Medications: Reviewed: Yes Medication Review Details: Current Medications Acetaminophen (Acetaminophen 325 Mg Tablet) 650 mg PO Q6H PRN PRN Reason: Mild/Mod Pain Or Temp >/= 101 Last Admin: 04/26/24 21:01 Dose: 650 mg Hydrocodone Bitart/Acetaminophen (Hydrocodone-Acetaminophen 5-325 Mg Tablet) 1 - 2 tab PO Q4H PRN PRN Reason: BREAKTHROUGH PAIN Albuterol/Ipratropium (Ipratropium-Albuterol 3 Ml Neb) 3 ml INHALATION Q6H PRN PRN Reason: SHORTNESS OF BREATH Allopurinol (Allopurinol 100 Mg Tablet) 100 mg PO DAILY [facility] Last Admin: 04/26/24 08:27 Dose: 100 mg Aspirin (Aspirin 325 Mg Ec Tablet) 325 mg PO DAILY [facility] Atorvastatin Calcium (Atorvastatin 40 Mg Tablet) 20 mg PO QPM [facility] Last Admin: 04/25/24 20:04 Dose: 20 mg Calcium Acetate (Calcium Acetate 667 Mg Capsule) 667 mg PO BID [facility] Last Admin: 04/26/24 08:34 Dose: Not Given Carvedilol (Carvedilol 25 Mg Tablet) 25 mg PO BID [facility] Last Admin: 04/26/24 08:27 Dose: 25 mg Cefazolin Sodium (Cefazolin 2,000 Mg Sdv) 2,000 mg IVP Q12H [facility]; Protocol Stop: 04/27/24 10:46 Last Admin: 04/26/24 23:07 Dose: 2,000 mg Heparin Sodium (Porcine) (Heparin 5,000 Unit/Ml Inj 1 Ml) 5,000 unit SUBCUT Q12H [facility] Last Admin: 04/27/24 05:30 Dose: 5,000 unit Hydralazine HCl (Hydralazine 20 Mg/Ml Inj 1 Ml) 10 mg IVP Q4H PRN PRN Reason: bp>180/100 Last Admin: 04/26/24 04:40 Dose: 10 mg Hydralazine HCl (Hydralazine 25 Mg Tablet) 25 mg PO QID [facility] Last Admin: 04/26/24 21:01 Dose: 25 mg Losartan Potassium (Losartan 50 Mg Tablet) 25 mg PO DAILY [facility] Last Admin: 04/26/24 08:27 Dose: 25 mg Morphine Sulfate (Morphine 4 Mg/Ml Sdv 1 Ml) 2 mg IVP Q4H PRN PRN Reason: SEVERE PAIN Last Admin: 04/26/24 09:29 Dose: 2 mg Morphine Sulfate (Morphine 4 Mg/Ml Sdv 1 Ml) 4 mg IVP Q4H PRN PRN Reason: SEVERE PAIN Nifedipine (Nifedipine Er (24 Hr) 30 Mg Tablet) 120 mg PO DAILY [facility] Last Admin: 04/26/24 08:26 Dose: 120 mg Ondansetron HCl (Ondansetron 2 Mg/Ml Sdv 2 Ml) 4 mg IVP Q8H PRN PRN Reason: vomiting, or N/V if npo Ondansetron HCl (Ondansetron 2 Mg/Ml Sdv 2 Ml) 4 mg IVP Q4H PRN PRN Reason: NAUSEA AND VOMITING Tramadol HCl (Tramadol 50 Mg Tablet) 50 mg PO Q4H PRN PRN Reason: MILD TO MODERATE PAIN Vitamin D (Cholecalciferol (Vitamin D3) 1,000 Unit Tablet) 2,000 unit PO DAILY [facility] Last Admin: 04/26/24 08:34 Dose: Not Given Vitals/I&O/Wt Last Vital Signs Temp 98.6 F 04/28/24 11:12 Pulse 74 04/28/24 11:12 Resp 20 H 04/28/24 11:12 BP 105/47 04/28/24 11:12 Pulse Ox 89 L 04/28/24 11:12 O2 Del Method Nasal Cannula 04/28/24 11:12 O2 Flow Rate 6 04/28/24 11:12 04/27/24 04/28/24 04/28/24 22:59 06:59 14:59 Intake Total 1220 / 1460 120 / 1580 480 / 480 Output Total 2500 / 2500 Balance -1280 / -1040 120 / -920 480 / 480 Weight last 48 hrs Weight 157 lb 11.2 oz Weight 162 lb 0.636 oz Weight 165 lb 4 oz Weight 154 lb Physical Exam Const: COMMON NORMALS: no acute distress, average body habitus, patient oriented x3 and alert GENERAL APPEARANCE: cooperative and comfortable ORIENTATION/CONSCIOUSNESS: Yes awake HENMT: COMMON NORMALS: normocephalic and atraumatic HEAD & SCALP: normocephalic and atraumatic Eye: GENERAL EYE: appearance normal, both eyes and all related structures Chest: COMMONS NORMALS: normal inspection of the chest Resp: COMMON NORMALS: normal respiratory effort EFFORT & INSPECTION: Yes able to speak in complete sentences and Yes symmetric chest movement Extremity: LEFT LOWER EXTREMITY: Yes hip joint (Dressings are dry and intact) Left hip: Yes inspection (No significant swelling or ecchymosis), Yes ROM (Not evaluated) and Yes neurovascular exam (Intact distally with soft calf) Neuro: COMMON NORMALS: patient oriented x3 SENSORIUM/ORIENTATION: Yes alert Psych: COMMON NORMALS: mental status grossly normal APPEARANCE: Yes grossly normal ATTITUDE: Yes calm and Yes engaged ATTENTION/CONCENTRATION: Yes attention grossly intact Skin: COMMON NORMALS: no rashes or lesions noted GENERAL SKIN EXAM: no rashes or lesions noted Urinary Catheter Management: Sepulveda: Cath Placed During This Visit: yes, but has since been removed by the nurse Reason for Continuing Indwelling Catheter: Decision to DC Catheter Date Urinary Catheter Removed: 04/27/24 Time Urinary Catheter Discontinued: 05:45 Data 04/28/24 19:26 04/28/24 19:26 Micro: Microbiology 04/25/24 17:45 Urine Culture - Preliminary Urine,Clean Catch Strep species, gamma-hemolytic A&P Assessment and plan (1) Closed intertrochanteric fracture of left hip: Patient was admitted through the emergency department with diagnosis of a comminuted angulated displaced intertrochanteric left hip fracture. Patient underwent open reduction internal fixation of this fracture. He is chronically on dialysis, and he has been dialyzed while in the hospital. Today, when he is seen, he is short of breath, and his oxygen saturations are quite low. There is no evidence of DVT. This will be evaluated by the medical service. From an orthopedic perspective, the patient may be weightbearing as tolerated on this extremity. He is to maintain the dressings until they come off on their own or he is seen in the office. He needs to follow-up in approximately 3 weeks. There is a subcuticular skin closure, so staple removal will not be required. He will require residential with physical therapy. At this point, orthopedics will sign off unless we are asked to see him for postoperative issues. Qualifiers: Encounter type: initial encounter Fracture alignment: displaced Qualified Code(s): S72.142A - Displaced intertrochanteric fracture of left femur, initial encounter for closed fracture Attestations Medical Necessity Statement*: Per hospitalist team Coding Level of Care Code Acute Code for Chg Fwd Diagnoses Closed displaced intertrochanteric fracture of left femur, initial encounter S72.142A Encounter type: initial encounter Fracture alignment: displaced
--- NOTE | 2024-04-28 13:31 | ECG_ITS ---
[facility] Test Date: 2024-04-28 Pat Name: Fermin Patel Department: Room: 270 Gender: Male Product Support Technician: : 1940 Requested By: Louise Finch Order Number: [id number] Moraima MD: Jovita Infante M.D. Measurements Intervals [place] Rate: 68 P: 36 [place]: 193 QRS: 51 QRSD: 166 T: 48 QT: 415 QTc: 443 Interpretive Statements SINUS RHYTHM RIGHT BUNDLE BRANCH BLOCK [120+ ms QRS DURATION, UPRIGHT V1, 40+ ms S IN I/aVL/V4/V5/V6] Compared to ECG 04/25/2024 17:23:21 No significant changes Electronically Signed On 04-29-2024 15:55:12 PHARMACY CASHIER by Jovita Infante M.D. [id number]
--- NOTE | 2024-04-28 13:35 | PC.OT ---
Pt receiving procedure in room at 13:53 when attempted OT evaluation; will attempt again at later time.
--- NOTE | 2024-04-28 13:55 | PHA.VACGOAL ---
Vancomycin Goal - Goal Vancomycin Goal:: 15-20 mg/L Vancomycin Indication:: Other - Therapy Day of therpy:: Day 1 of [] Actual body weight (kg): 157 lb 11.2 oz - Data Labs: WBC 9.68 10^3/uL (3.29-11.43) 04/28/24 04:52 RBC 2.80 10^6/uL (3.85-5.65) L 04/28/24 04:52 Hgb 8.20 g/dL (11.27-16.99) L 04/28/24 04:52 Hct 26.5 % (37-53) L 04/28/24 04:52 MCV 94.6 fl (82-101) 04/28/24 04:52 MCH 29.3 pg (27-33) 04/28/24 04:52 MCHC 30.9 g/dL (30-55) 04/28/24 04:52 RDW 18.0 % (12.1-15.1) H 04/28/24 04:52 Sodium 131 mmol/L (136-145) L 04/28/24 04:52 Potassium 4.2 mmol/L (3.5-5.1) 04/28/24 04:52 Chloride 92 mmol/L (98-107) L 04/28/24 04:52 Carbon Dioxide 29 mmol/L (22-29) 04/28/24 04:52 Anion Gap 14.2 (5-19) 04/28/24 04:52 BUN 18 mg/dL (8-23) 04/28/24 04:52 Creatinine 4.3 mg/dL (0.7-1.2) H 04/28/24 04:52 GFR Calculation Not Reportable 04/28/24 04:52 Last dialysis session:: Last session (04/27/24) Treatment plan:: new consult Regimen:: LOADING DOSE OF 2000 MG x 1 Follow up:: TROUGH WILL BE SCHEDULED FOR 24 HOURS AFTER LOADING DOSE
[2024-04-28] MEDS: methylPREDNISolone sod succ 40 mg/mL INJ 60 MG IVP ×2 (14:24→20:41)
[2024-04-28] MEDS: vancomycin 2,000 MG/400 ML PIGGYBACK 200 MG IV (14:25)
[2024-04-28 14:40] LABS: Troponin(5th) Baseline 95 ng/L (0-15)
[2024-04-28 14:42] LABS: D Dimer 5.16 ug/mLFEU (0-0.59)
--- NOTE | 2024-04-28 15:21 | ECG_ITS ---
[facility] Test Date: 2024-04-28 Pat Name: Fermin Patel Department: Room: 270 Gender: Male Lactation Consultant: : 1940 Requested By: Louise Finch Order Number: [id number] Moraima MD: Jovita Infante M.D. Measurements Intervals [place] Rate: 65 P: 39 [place]: 184 QRS: 54 QRSD: 170 T: 45 QT: 416 QTc: 436 Interpretive Statements SINUS RHYTHM RIGHT BUNDLE BRANCH BLOCK [120+ ms QRS DURATION, UPRIGHT V1, 40+ ms S IN I/aVL/V4/V5/V6] Compared to ECG 04/28/2024 13:31:30 No significant changes Electronically Signed On 05-01-2024 19:36:49 COMMERCIAL INSTALLER by Jovita Infanet M.D. [id number]
[2024-04-28] MEDS: naloxone 0.4 mg/ml SDV IVP (16:00)
[2024-04-28 16:07] LABS: Troponin 5 2HR 92.62 ng/L (0-15)
[2024-04-28 16:09] LABS: Troponin 5 2HR Delta -2.38 ABS# (0-10)
--- NOTE | 2024-04-28 16:19 | PC.NURSE ---
Report called to Arcelia in ICU. All questions answered at this time.
[2024-04-28] MEDS: piperacillin-tazobactam 3.375 GM in sodium chloride 0.9% (plus) 50 ML IV (17:30)
[2024-04-28] MEDS: atorvastatin 40 mg Tablet 20 MG PO (17:30)
--- NOTE | 2024-04-28 17:44 | P.PN_ITS ---
Subjective 2 Subjective: s/p HD this Am post HD - noted hypotension transferred to ICU Medications: Reviewed: Yes Vitals/I&O/Wt Last Vital Signs Temp 99.8 F H 04/28/24 15:13 Pulse 64 04/28/24 15:46 Resp 16 04/28/24 15:46 BP 98/40 04/28/24 15:44 Pulse Ox 91 04/28/24 15:46 O2 Del Method Heated High Flow 04/28/24 15:13 O2 Flow Rate 40 04/28/24 15:46 FiO2 60 04/28/24 15:46 04/28/24 04/28/24 04/28/24 06:59 14:59 22:59 Intake Total 120 / 1580 480 / 480 Balance 120 / -920 480 / 480 Weight last 48 hrs Weight 71.532 kg Weight 73.5 kg Weight 74.956 kg Physical Exam 2 Narrative: SOMNOLENT Urinary Catheter Management: Sepulveda: Cath Placed During This Visit: yes, but has since been removed by the nurse Reason for Continuing Indwelling Catheter: Decision to DC Catheter Date Urinary Catheter Removed: 04/27/24 Time Urinary Catheter Discontinued: 05:45 Data 04/28/24 04:52 04/28/24 04:52 Micro: Microbiology 04/28/24 13:45 Blood Culture - Preliminary Blood SPECIMEN COLLECTED 04/28/24 13:45 Blood Culture - Preliminary Blood SPECIMEN COLLECTED 04/25/24 17:45 Urine Culture - Preliminary Urine,Clean Catch Strep species, gamma-hemolytic A&P Assessment and plan (1) ESRD (end stage renal disease): 84-year-old gentleman ESRD hypertension heart failure preserved EF with mild to moderate aortic stenosis. The patient is status post left hip fracture from a fall on 04-25-24 - patient is being evaluated for possible surgery. 1. ESRD-HD today . 2. htn-will lower medications as blood pressure is now normal and 1 to get fluid off on dialysis. 3. Anemia monitor hemoglobin is ok- epo to start today. iron sat 15%, ferritin 2092- no iv iron 4. Heart failure preserved EF w/ EXT edema and JAYDEN inhibitor. 5. pth 70- no vit d analouge. may be able to lower phoslo 6. AMS ,hypotension --> transferred to ICU The patient was seen and examined using A/V equipment as a telehealth visit. The patient consented to hemodialysis and telehealth. Plan See above. dec medications. Evaluate shortness of breath and treat appropriately. Attestations 2 Medical Necessity Statement*: PER MEDICINE Coding Level of Care Code Acute Code for g Fwd Diagnoses ESRD (end stage renal disease) N18.6
[2024-04-28 18:05] LABS: ABG PCO2 47.9 mmHg (35-45); Base Excess ABG 4.5 mmol/L (-2.0-2.0); HCO3 ABG 29.8 mmol/L (22-26); PO2 ABG 51.9 mmHg (80.0-100.0)
[2024-04-28 18:06] LABS: Blood Gas Allen Test Pos; Blood Gas Operator Identificat WALCI; Blood Gas Sample Site Radial, right; Blood Gas Sample Type Arterial; Oxygen Device OXY MASK
--- NOTE | 2024-04-28 19:36 | PC.HD ---
Pt developed asymptomatic hypotension (89/41) which precluded further fluid removal. Dr Rebollar ntfd and treatment terminated 20 minutes early per instructions. Blood returned and BP came back up to 111/47 prior to removing needles.
[2024-04-28 19:48] LABS: Basophils % 0.1 %; Hematocrit 24.9 % (37-53); Lymphocytes # 0.5 10^3/uL (0.8-4.8); Lymphocytes % 5.2 %; Mean Corpuscular HGB Conc 31.7 g/dL (30-55); Mean Corpuscular Hemoglobin 29.2 pg (27-33); Mean Corpuscular Volume 91.9 fl (82-101); Mean Platelet Volume 11.1 fL (7.4-10.4); Monocytes # 0.3 10^3/uL (0.2-0.9); Monocytes % 3.4 %; Neutrophils # 8.98 10^3/uL (1.8-7.7); Neutrophils % 90.7 %; Nucleated Red Blood Cells % 0 %; Platelet Count 150 10^3/cmm (157-399); Red Blood Count 2.71 10^6/uL (3.85-5.65); Red Cell Distribution Width 17.9 % (12.1-15.1); White Blood Count 9.91 10^3/uL (3.29-11.43)
[2024-04-28 19:53] LABS: Troponin 5 6HR 90.17 ng/L (0-15)
[2024-04-28 19:55] LABS: Troponin 5 6HR Delta -4.83 ng/L (0-12)
--- NOTE | 2024-04-28 19:56 | ECG_ITS ---
[facility] Date: 2024-04-28 Pat Name: Fermin Patel Department: Room: [facility] Gender: Male Psychologists: : 1940 Requested By: Louise Finch Order Number: [id number] Moraima MD: Jovita Infante M.D. Measurements Intervals [place] Rate: 63 P: 25 [place]: 183 QRS: 54 QRSD: 170 T: 33 QT: 426 QTc: 436 Interpretive Statements SINUS RHYTHM INTRAVENTRICULAR CONDUCTION DELAY [130+ ms QRS DURATION] Compared to ECG 04/28/2024 15:39:49 Intraventricular conduction delay now present Right bundle-branch block no longer present Electronically Signed On 05-01-2024 19:36:[address] by Jovita Infante M.D. [id number]
[2024-04-28 20:06] LABS: Alanine Aminotransferase < 5 U/L (0-41); Albumin Level 3.4 g/dL (3.5-5.2); Alkaline Phosphatase 78 U/L (40-130); Anion Gap 20.7 (5-19); Aspartate Amino Transferase 19 U/L (0-40); Blood Urea Nitrogen 32 mg/dL (8-23); Calcium 8.8 mg/dL (8.5-10.5); Carbon Dioxide 25 mmol/L (22-29); Chloride 89 mmol/L (98-107); Creatinine Clr Calc Pharmacy 10.7114; Globulin 2.8 g/dL (1.3-4.6); Glucose 225 mg/dL (65-115); Osmolality Calculated 284 mOsm/kg (285-295); Potassium 4.7 mmol/L (3.5-5.1); Sodium 130 mmol/L (136-145); Total Bilirubin 0.3 mg/dL (0.15-1.2); Total Protein 6.2 g/dL (6.6-8.7)
[2024-04-28 20:18] LABS: Covid PCR NEGATIVE (Negative); Influenza A NEGATIVE (Negative); Influenza B NEGATIVE (Negative); Respiratory Syncytial Virus Ce NEGATIVE (Negative)
[2024-04-29] VITALS (73 sets, daily range): BP systolic 96–140; BP diastolic 44–74; PULSE 57–76; RESP 10–26; TEMP 36.1–36.7; O2SAT 90–100
[2024-04-29] MEDS: ipratropium-albuterol 3 mL Neb INHALATION ×4 (02:53→20:20)
[2024-04-29 04:49] LABS: Basophils % 0.1 %; Hematocrit 25.6 % (37-53); Lymphocytes # 0.7 10^3/uL (0.8-4.8); Lymphocytes % 8.1 %; Mean Corpuscular HGB Conc 32.8 g/dL (30-55); Mean Corpuscular Hemoglobin 29.6 pg (27-33); Mean Corpuscular Volume 90.1 fl (82-101); Mean Platelet Volume 11.1 fL (7.4-10.4); Monocytes # 0.3 10^3/uL (0.2-0.9); Neutrophils # 7.49 10^3/uL (1.8-7.7); Neutrophils % 87.4 %; Nucleated Red Blood Cells % 0 %; Platelet Count 152 10^3/cmm (157-399); Red Blood Count 2.84 10^6/uL (3.85-5.65); Red Cell Distribution Width 17.4 % (12.1-15.1); White Blood Count 8.56 10^3/uL (3.29-11.43)
[2024-04-29 05:06] LABS: Alanine Aminotransferase < 5 U/L (0-41); Albumin Level 3.6 g/dL (3.5-5.2); Alkaline Phosphatase 84 U/L (40-130); Anion Gap 19.6 (5-19); Aspartate Amino Transferase 16 U/L (0-40); Blood Urea Nitrogen 36 mg/dL (8-23); Calcium 9.5 mg/dL (8.5-10.5); Carbon Dioxide 26 mmol/L (22-29); Chloride 87 mmol/L (98-107); Creatinine Clr Calc Pharmacy 10.4129; Globulin 3.3 g/dL (1.3-4.6); Glucose 194 mg/dL (65-115); Osmolality Calculated 280 mOsm/kg (285-295); Potassium 4.6 mmol/L (3.5-5.1); Sodium 128 mmol/L (136-145); Total Bilirubin 0.3 mg/dL (0.15-1.2); Total Protein 6.9 g/dL (6.6-8.7)
--- NOTE | 2024-04-29 05:12 | P.PN_ITS ---
Subjective 2 Subjective: on 60 % Fio2 Medications: Reviewed: Yes Vitals/I&O/Wt Last Vital Signs Temp 97.0 F L 04/29/24 04:58 Pulse 60 04/29/24 04:00 Resp 14 04/29/24 03:45 BP 126/47 04/29/24 04:00 Pulse Ox 99 04/29/24 04:00 O2 Del Method Heated High Flow 04/28/24 15:13 O2 Flow Rate 50 04/29/24 02:55 FiO2 80 04/29/24 02:55 04/28/24 04/28/24 04/29/24 14:59 22:59 06:59 Intake Total 480 / 480 950 / 1430 400 / 1830 Output Total 2091 / 2091 Balance 480 / 480 -1142 / -662 400 / -262 Weight last 48 hrs Weight 71.033 kg Weight 72.9 kg Weight 71.532 kg Weight 73.5 kg Weight 74.956 kg Physical Exam 2 Narrative: awake , alert HEENT SQS2 RRR per report Lungs clear per report No edema Urinary Catheter Management: Sepulveda: Cath Placed During This Visit: yes, but has since been removed by the nurse Reason for Continuing Indwelling Catheter: Decision to DC Catheter Date Urinary Catheter Removed: 04/27/24 Time Urinary Catheter Discontinued: 05:45 Data 04/29/24 04:32 04/29/24 04:32 Micro: Microbiology 04/28/24 13:45 Blood Culture - Preliminary Blood SPECIMEN COLLECTED 04/28/24 13:45 Blood Culture - Preliminary Blood SPECIMEN COLLECTED 04/25/24 17:45 Urine Culture - Preliminary Urine,Clean Catch Strep species, gamma-hemolytic A&P Assessment and plan (1) ESRD (end stage renal disease): 84-year-old gentleman ESRD hypertension heart failure preserved EF with mild to moderate aortic stenosis. The patient is status post left hip fracture from a fall on 04-25-24. 1. ESRD- s/p HD yesterday , assess daily for HD needs 2. HTN : Monitor 3. Anemia :JANIE with hD iron sat 15%, ferritin 2092- no iv iron 4. Heart failure preserved EF w/ ext edema and JAYDEN inhibitor. 5. Acute on chronic resp failure : on 60 % Fio2 , CTA shows mucus pligging right main stem bronchus and jeanette pleural effusions , compressive atelectasis consider pulmonary eval for possible broch 6. AMS ,hypotension --> transferred to ICU ,improved The patient was seen and examined using A/V equipment as a telehealth visit. The patient consented to hemodialysis and telehealth. Plan See above. dec medications. Evaluate shortness of breath and treat appropriately. Attestations 2 Medical Necessity Statement*: per blair Coding Level of Care Code Acute Code for g Fwd Diagnoses ESRD (end stage renal disease) N18.6
[2024-04-29] MEDS: piperacillin-tazobactam 3.375 GM in sodium chloride 0.9% (plus) 50 ML IV ×2 (05:35→16:34)
[2024-04-29] MEDS: methylPREDNISolone sod succ 40 mg/mL INJ 60 MG IVP ×3 (05:35→20:41)
[2024-04-29] MEDS: heparin 5,000 unit/mL INJ 1 mL 5000 UNIT SUBCUT ×2 (05:35→17:42)
[2024-04-29] MEDS: allopurinol 100 mg Tablet PO (08:13)
[2024-04-29] MEDS: aspirin 325 mg EC Tablet PO (08:13)
[2024-04-29] MEDS: cholecalciferol (vitamin D3) 1,000 unit Tablet 2000 UNIT PO (08:13)
[2024-04-29] MEDS: calcium acetate 667 mg Capsule PO ×2 (08:13→17:42)
[2024-04-29] MEDS: budesonide 0.5 mg/2 mL Neb INHALATION ×2 (10:01→20:20)
--- NOTE | 2024-04-29 10:34 | PC.OT ---
OT orders received to evaluate and treat. Nursing states pt. is not appropriate for OT evaluation at this time secondary to not following commands. OT evaluation to be attempted at a later date when/if pt. is able to follow commands.
[2024-04-29] MEDS: TRAMadol 50 mg Tablet PO (11:46)
--- NOTE | 2024-04-29 11:51 | PC.SLP ---
WEB DEVELOPER PROGRAMMER attempted to see patient, but patient was with doctor. Will round again and attempt later.
--- NOTE | 2024-04-29 13:51 | PC.NURSE ---
Patient requests to get back in bed from recliner, patient then refuses to let staff assist him back to bed. Patient states, You will not help me, my son will help me. He knows what to do now. Educated patient and visitors at bedside of fall risk and to notify nursing staff when transferring.
[2024-04-29 14:06] LABS: Vancomycin Random 21.7 ug/mL (20.0-40.0)
--- NOTE | 2024-04-29 15:32 | PC.NURSE ---
Spoke with pharmacy on vancomycin dose. Pharmacy to recheck level 04/30/24 as patient likely to receive dialysis on regular scheduled days. Patient is to transfer to medical surgical floor this shift, will update nurse in report of plan.
--- NOTE | 2024-04-29 15:39 | PC.NURSE ---
Patient and family requesting to transfer to medical surgical floor. Dr. Finch spoke with patient about bed availability. Patient family requesting patient to transfer to MS floor, educated family and patient on bed availability. Will continue to update patient and family on transfer.
--- NOTE | 2024-04-29 16:07 | PC.NURSE ---
Report called to [facility] surgical tech floor, no questions at the time of report.
--- NOTE | 2024-04-29 16:31 | PC.NURSE ---
Patient transferred to [facility] via bed per patient request, on 7L NC. Patient resting in bed with son at bed side. Son transferred all belongings. MEMS PROCESS ENGINEER at bed side. Patient oriented to room and call light use. No questions or requests at the time of transfer. Chart left with staff at motel front desk attendant.
--- NOTE | 2024-04-29 16:38 | PM.PN ---
Subjective Subjective: Patient is feeling better today. Afebrile last 24 hours. Still on high flow, 45 L/min at 40% FiO2. Encouraged to get out of bed and ambulate. CTA performed yesterday was negative for PE but did show interval development of a right-sided pneumonia, suspect he may have aspirated. He was moved to the ICU due to hypotension, which appeared to have resolved now. He is not currently on any Levophed. Medications: Reviewed: Yes Medication Review Details: Current Medications Acetaminophen (Acetaminophen 325 Mg Tablet) 650 mg PO Q6H PRN PRN Reason: Mild/Mod Pain Or Temp >/= 101 Last Admin: 04/26/24 21:01 Dose: 650 mg Hydrocodone Bitart/Acetaminophen (Hydrocodone-Acetaminophen 5-325 Mg Tablet) 1 - 2 tab PO Q4H PRN PRN Reason: BREAKTHROUGH PAIN Albuterol/Ipratropium (Ipratropium-Albuterol 3 Ml Neb) 3 ml INHALATION Q6H PRN PRN Reason: SHORTNESS OF BREATH Allopurinol (Allopurinol 100 Mg Tablet) 100 mg PO DAILY [facility] Last Admin: 04/26/24 08:27 Dose: 100 mg Aspirin (Aspirin 325 Mg Ec Tablet) 325 mg PO DAILY [facility] Atorvastatin Calcium (Atorvastatin 40 Mg Tablet) 20 mg PO QPM [facility] Last Admin: 04/25/24 20:04 Dose: 20 mg Calcium Acetate (Calcium Acetate 667 Mg Capsule) 667 mg PO BID [facility] Last Admin: 04/26/24 08:34 Dose: Not Given Carvedilol (Carvedilol 25 Mg Tablet) 25 mg PO BID [facility] Last Admin: 04/26/24 08:27 Dose: 25 mg Cefazolin Sodium (Cefazolin 2,000 Mg Sdv) 2,000 mg IVP Q12H [facility]; Protocol Stop: 04/27/24 10:46 Last Admin: 04/26/24 23:07 Dose: 2,000 mg Heparin Sodium (Porcine) (Heparin 5,000 Unit/Ml Inj 1 Ml) 5,000 unit SUBCUT Q12H [facility] Last Admin: 04/27/24 05:30 Dose: 5,000 unit Hydralazine HCl (Hydralazine 20 Mg/Ml Inj 1 Ml) 10 mg IVP Q4H PRN PRN Reason: bp>180/100 Last Admin: 04/26/24 04:40 Dose: 10 mg Hydralazine HCl (Hydralazine 25 Mg Tablet) 25 mg PO QID [facility] Last Admin: 04/26/24 21:01 Dose: 25 mg Losartan Potassium (Losartan 50 Mg Tablet) 25 mg PO DAILY [facility] Last Admin: 04/26/24 08:27 Dose: 25 mg Morphine Sulfate (Morphine 4 Mg/Ml Sdv 1 Ml) 2 mg IVP Q4H PRN PRN Reason: SEVERE PAIN Last Admin: 04/26/24 09:29 Dose: 2 mg Morphine Sulfate (Morphine 4 Mg/Ml Sdv 1 Ml) 4 mg IVP Q4H PRN PRN Reason: SEVERE PAIN Nifedipine (Nifedipine Er (24 Hr) 30 Mg Tablet) 120 mg PO DAILY [facility] Last Admin: 04/26/24 08:26 Dose: 120 mg Ondansetron HCl (Ondansetron 2 Mg/Ml Sdv 2 Ml) 4 mg IVP Q8H PRN PRN Reason: vomiting, or N/V if npo Ondansetron HCl (Ondansetron 2 Mg/Ml Sdv 2 Ml) 4 mg IVP Q4H PRN PRN Reason: NAUSEA AND VOMITING Tramadol HCl (Tramadol 50 Mg Tablet) 50 mg PO Q4H PRN PRN Reason: MILD TO MODERATE PAIN Vitamin D (Cholecalciferol (Vitamin D3) 1,000 Unit Tablet) 2,000 unit PO DAILY [facility] Last Admin: 04/26/24 08:34 Dose: Not Given Vitals/I&O/Wt Last Vital Signs Temp 98.0 F 04/29/24 08:45 Pulse 70 04/29/24 16:00 Resp 14 04/29/24 16:00 BP 140/56 04/29/24 16:00 Pulse Ox 97 04/29/24 16:00 O2 Del Method High Flow Nasal Cannula 04/29/24 16:00 O2 Flow Rate 7 04/29/24 16:00 FiO2 50 04/29/24 14:31 04/29/24 04/29/24 04/29/24 06:59 14:59 22:59 Intake Total 400 / 1830 372 / 372 Balance 400 / -262 372 / 372 Weight last 48 hrs Weight 71.033 kg Weight 72.9 kg Weight 71.532 kg Physical Exam Narrative: General: No acute distress, AO x3 HEENT: PERRLA, pupils bilaterally equal and reactive, pallors not present Chest: Crackles to auscultation right side CVS: S1-S2 regular, no murmurs, no tachycardia, no gallops, no rubs Abdomen: Soft, nontender, no organomegaly, bowel sounds present Neuro: No focal deficits, no facial deformity, AO x3, power 5/5 in all limbs Extremities: No edema clubbing or cyanosis Urinary Catheter Management: Sepulveda: Cath Placed During This Visit: yes, but has since been removed by the nurse Reason for Continuing Indwelling Catheter: Decision to DC Catheter Date Urinary Catheter Removed: 04/27/24 Time Urinary Catheter Discontinued: 05:45 Data 04/29/24 04:32 04/29/24 04:32 Micro: Microbiology 04/28/24 13:45 Blood Culture - Preliminary Blood NEGATIVE TO DATE 04/28/24 13:45 Blood Culture - Preliminary Blood NEGATIVE TO DATE 04/25/24 17:45 Urine Culture - Preliminary Urine,Clean Catch Strep species, gamma-hemolytic A&P Assessment and plan (1) ESRD (end stage renal disease): (2) Fracture of hip, left, closed: (3) Chronic gout: (4) Pleural effusion: (5) Hypertensive urgency: (6) Fall: Plan Mechanical fall Hip fracture Dr. Lee consulted Patient will be kept n.p.o. after midnight Opioids along bowel regimen End-stage renal disease Wednesday last session was on Wednesday, he does have passive congestion but clinically does not look extremely fluid overloaded Nephro consulted, we may have to dialyze him on Wednesday in order to optimize him for surgery Chronic hypoxia requires 2 L of oxygen he uses mostly at nighttime Patient is not on any anticoagulating agent Hypertensive urgency avoid lisinopril in perioperative time Would use hydralazine, nifedipine, Coreg and keep IV hydralazine on board as well DNR/DNI discussed with the patient Lives alone Recent type II [place] stress test showed small jaylan-infarct ischemia which was managed medically as per cardiology Renal diet and then n.p.o. after midnight DVT prophylaxis: SCDs 04/25/2024 -Plan for surgery today. ? Patient underwent dialysis this morning. ? Continue nifedipine Coreg IV hydralazine and oral hydralazine. ? Nephrology following ? Orthopedic surgery consulted. Plan for procedure around 3 PM today. 04/28/2024 Patient is more lethargic today. Oxygen requirement had improved yesterday down to 4 L/min, however since this afternoon trending up to 15 L/min on a nonrebreather mask. ABG as noted above. Concern for possible PE with acutely worsened hypoxia. Check CTA of the chest to evaluate for this possibility. Will transition to heated high flow to maintain O2 sat ~90% patient has been getting scheduled nebulization with DuoNeb and budesonide since yesterday. Will add steroids given worsening hypoxia. Methylprednisolone 60 mg IV every 8 hours. Patient also appearing to be more lethargic somnolent today. He had last received 2 tablets of [place] at 12:20 PM. Will hold any further dose of opiates for now given increased lethargy. Pain management to be with Tylenol and tramadol alternating. Transiently hypotensive in dialysis today. Hold losartan. Reduce dose of carvedilol from 25 mg p.o. twice daily to 12.5 mg p.o. twice daily. Urine culture showing gamma hemolytic strep. Patient was on cefazolin until yesterday to cover for UTI and also cardio prophylaxis. Gamma hemolytic strep may represent Enterococcus, patient has a history of past enterococcal UTIs. Will start vancomycin empirically while pending identification and susceptibility. Hemoglobin at 8.2 today, closely monitor. Patient to benefit from continued hospitalization given worsening hypoxia today, needs further evaluation as noted above. Plan discussed with patient and his sister at bedside. 04/29/2024. Patient is awake and alert today. He is on heated high flow currently at 45% FiO2 40 L/min, attempts at weaning down oxygen today. He was transiently hypotensive yesterday afternoon and was moved into the ICU for anticipated pressor support, however ultimately did not need any Levophed. Antihypertensives have been on hold for this reason. He feels better today. Encouraged to ambulate. He has not been out of bed since his surgery. Discussed with him that he has developed a right-sided pneumonia as seen on CTA of the chest which would be the explanation of his acute deterioration yesterday. He is currently on antibiotics with piperacillin/tazobactam and vancomycin., Hemolytic strep from the urine cultures are not further identified as of now. Concerned that patient may have aspiration from poor mobility. Encourage PT OT participation. Stable to be moved out of ICU back to [facility] today. He is currently on a dysphagia diet pending speech therapy evaluation. Sputum culture and Gram stain is pending. Continue steroids as started yesterday 60 mg IV every 8 hours. Attestations Medical Necessity Statement*: move out of ICU, continue iv abx and iv steroids Coding Level of Care Code Acute Code for Chg Fwd High MDM includes number and complexity of problems actively addressed during encounter, amount and/or complexity of data reviewed/ordered and described risk of complication, morbidity or mortality of management as documented Diagnoses ESRD (end stage renal disease) N18.6 Fracture of hip, left, closed S72.002A Chronic gout [id number].[id number] Pleural effusion J90 Hypertensive urgency I16.0 Fall W19.XXXA
[2024-04-29] MEDS: carvedilol 25 mg Tablet 12.5 MG PO (17:41)
[2024-04-29] MEDS: atorvastatin 40 mg Tablet 20 MG PO (17:42)
[2024-04-30] VITALS (12 sets, daily range): BP systolic 139–151; BP diastolic 60–76; PULSE 67–78; RESP 14–21; TEMP 36.3–36.9; O2SAT 90–97
[2024-04-30] MEDS: ipratropium-albuterol 3 mL Neb INHALATION ×3 (01:36→20:15)
[2024-04-30 05:29] LABS: Hematocrit 24.6 % (37-53); Lymphocytes # 0.6 10^3/uL (0.8-4.8); Lymphocytes % 6.5 %; Mean Corpuscular HGB Conc 31.7 g/dL (30-55); Mean Corpuscular Hemoglobin 28.9 pg (27-33); Mean Corpuscular Volume 91.1 fl (82-101); Mean Platelet Volume 11.9 fL (7.4-10.4); Monocytes # 0.4 10^3/uL (0.2-0.9); Monocytes % 4.6 %; Neutrophils # 7.97 10^3/uL (1.8-7.7); Neutrophils % 88.5 %; Nucleated Red Blood Cells % 0 %; Platelet Count 180 10^3/cmm (157-399); Red Cell Distribution Width 17.2 % (12.1-15.1); White Blood Count 9.01 10^3/uL (3.29-11.43)
[2024-04-30 05:53] LABS: Alanine Aminotransferase < 5 U/L (0-41); Albumin Level 3.2 g/dL (3.5-5.2); Alkaline Phosphatase 93 U/L (40-130); Anion Gap 23.2 (5-19); Aspartate Amino Transferase 13 U/L (0-40); Blood Urea Nitrogen 50 mg/dL (8-23); Calcium 9.6 mg/dL (8.5-10.5); Carbon Dioxide 23 mmol/L (22-29); Chloride 90 mmol/L (98-107); Creatinine Clr Calc Pharmacy 8.2539; Globulin 3.1 g/dL (1.3-4.6); Glucose 153 mg/dL (65-115); Osmolality Calculated 288 mOsm/kg (285-295); Potassium 5.2 mmol/L (3.5-5.1); Sodium 131 mmol/L (136-145); Total Bilirubin 0.2 mg/dL (0.15-1.2); Total Protein 6.3 g/dL (6.6-8.7)
[2024-04-30] MEDS: piperacillin-tazobactam 3.375 GM in sodium chloride 0.9% (plus) 50 ML IV ×2 (06:06→17:29)
[2024-04-30] MEDS: heparin 5,000 unit/mL INJ 1 mL 5000 UNIT SUBCUT ×2 (06:06→17:29)
[2024-04-30] MEDS: methylPREDNISolone sod succ 40 mg/mL INJ 60 MG IVP ×2 (06:07→13:59)
[2024-04-30] MEDS: budesonide 0.5 mg/2 mL Neb INHALATION ×2 (08:10→20:15)
[2024-04-30] MEDS: calcium acetate 667 mg Capsule PO ×2 (09:01→17:29)
[2024-04-30] MEDS: allopurinol 100 mg Tablet PO (09:01)
[2024-04-30] MEDS: cholecalciferol (vitamin D3) 1,000 unit Tablet 2000 UNIT PO (09:01)
[2024-04-30] MEDS: aspirin 325 mg EC Tablet PO (09:01)
[2024-04-30] MEDS: carvedilol 25 mg Tablet 12.5 MG PO (09:01)
[2024-04-30] MEDS: NIFEdipine ER (24 hr) 30 mg Tablet 60 MG PO (11:20)
--- NOTE | 2024-04-30 12:02 | P.PN_ITS ---
Subjective 2 Subjective: feels OK Medications: Reviewed: Yes Vitals/I&O/Wt Last Vital Signs Temp 97.4 F L 04/30/24 11:51 Pulse 77 04/30/24 11:51 Resp 15 04/30/24 11:51 BP 142/76 04/30/24 11:51 Pulse Ox 96 04/30/24 11:51 O2 Del Method Nasal Cannula 04/30/24 11:51 O2 Flow Rate 6 04/30/24 08:10 FiO2 50 04/29/24 14:31 04/29/24 04/30/24 04/30/24 22:59 06:59 14:59 Intake Total 290 / 662 350 / 350 Balance 290 / 662 350 / 350 Weight last 48 hrs Weight 69.989 kg Weight 71.033 kg Weight 72.9 kg Physical Exam 2 Narrative: awake , alert HEENT SQS2 RRR per report Lungs clear per report No edema Urinary Catheter Management: Sepulveda: Cath Placed During This Visit: yes, but has since been removed by the nurse Reason for Continuing Indwelling Catheter: Decision to DC Catheter Date Urinary Catheter Removed: 04/27/24 Time Urinary Catheter Discontinued: 05:45 Data 04/30/24 04:23 04/30/24 04:23 Micro: Microbiology 04/25/24 17:45 Urine Culture - Final Urine,Clean Catch Streptococcus species 04/29/24 08:46 Gram Stain - Final Sputum - Expectorated Sputum 04/28/24 13:45 Blood Culture - Preliminary Blood NEGATIVE TO DATE 04/28/24 13:45 Blood Culture - Preliminary Blood NEGATIVE TO DATE A&P Assessment and plan (1) ESRD (end stage renal disease): 84-year-old gentleman ESRD hypertension heart failure preserved EF with mild to moderate aortic stenosis. The patient is status post left hip fracture from a fall on 04-25-24. 1. ESRD- s/p HD WEDNESDAY , HD TODAY 2. HTN : Monitor 3. Anemia :JANIE with hD iron sat 15%, ferritin 2092- no iv iron 4. Heart failure preserved EF w/ ext edema and JAYDEN inhibitor. 5. Acute on chronic resp failure : on 60 % Fio2 , CTA shows mucus pligging right main stem bronchus and jeanette pleural effusions , compressive atelectasis 6. AMS ,hypotension --> transferred to ICU ,improved The patient was seen and examined using A/V equipment as a telehealth visit. The patient consented to hemodialysis and telehealth. Plan See above. dec medications. Evaluate shortness of breath and treat appropriately. Attestations 2 Medical Necessity Statement*: per mediicne team Coding Level of Care Code Acute Code for Chg Fwd Diagnoses ESRD (end stage renal disease) N18.6
[2024-04-30] MEDS: heparin, porcine 1,000 unit/mL INJ 10 mL 1000 UNIT IV (13:50)
--- NOTE | 2024-04-30 14:10 | PM.PN ---
Subjective Subjective: Patient continues to feel better today. He is afebrile. Trending towards hypertension now. Evaluated by speech therapy, recommended dysphagia 5 diet. Oxygen requirement down to 6 L today. Medications: Reviewed: Yes Medication Review Details: Current Medications Acetaminophen (Acetaminophen 325 Mg Tablet) 650 mg PO Q6H PRN PRN Reason: Mild/Mod Pain Or Temp >/= 101 Last Admin: 04/26/24 21:01 Dose: 650 mg Hydrocodone Bitart/Acetaminophen (Hydrocodone-Acetaminophen 5-325 Mg Tablet) 1 - 2 tab PO Q4H PRN PRN Reason: BREAKTHROUGH PAIN Albuterol/Ipratropium (Ipratropium-Albuterol 3 Ml Neb) 3 ml INHALATION Q6H PRN PRN Reason: SHORTNESS OF BREATH Allopurinol (Allopurinol 100 Mg Tablet) 100 mg PO DAILY [facility] Last Admin: 04/26/24 08:27 Dose: 100 mg Aspirin (Aspirin 325 Mg Ec Tablet) 325 mg PO DAILY [facility] Atorvastatin Calcium (Atorvastatin 40 Mg Tablet) 20 mg PO QPM [facility] Last Admin: 04/25/24 20:04 Dose: 20 mg Calcium Acetate (Calcium Acetate 667 Mg Capsule) 667 mg PO BID [facility] Last Admin: 04/26/24 08:34 Dose: Not Given Carvedilol (Carvedilol 25 Mg Tablet) 25 mg PO BID [facility] Last Admin: 04/26/24 08:27 Dose: 25 mg Cefazolin Sodium (Cefazolin 2,000 Mg Sdv) 2,000 mg IVP Q12H [facility]; Protocol Stop: 04/27/24 10:46 Last Admin: 04/26/24 23:07 Dose: 2,000 mg Heparin Sodium (Porcine) (Heparin 5,000 Unit/Ml Inj 1 Ml) 5,000 unit SUBCUT Q12H [facility] Last Admin: 04/27/24 05:30 Dose: 5,000 unit Hydralazine HCl (Hydralazine 20 Mg/Ml Inj 1 Ml) 10 mg IVP Q4H PRN PRN Reason: bp>180/100 Last Admin: 04/26/24 04:40 Dose: 10 mg Hydralazine HCl (Hydralazine 25 Mg Tablet) 25 mg PO QID [facility] Last Admin: 04/26/24 21:01 Dose: 25 mg Losartan Potassium (Losartan 50 Mg Tablet) 25 mg PO DAILY [facility] Last Admin: 04/26/24 08:27 Dose: 25 mg Morphine Sulfate (Morphine 4 Mg/Ml Sdv 1 Ml) 2 mg IVP Q4H PRN PRN Reason: SEVERE PAIN Last Admin: 04/26/24 09:29 Dose: 2 mg Morphine Sulfate (Morphine 4 Mg/Ml Sdv 1 Ml) 4 mg IVP Q4H PRN PRN Reason: SEVERE PAIN Nifedipine (Nifedipine Er (24 Hr) 30 Mg Tablet) 120 mg PO DAILY [facility] Last Admin: 04/26/24 08:26 Dose: 120 mg Ondansetron HCl (Ondansetron 2 Mg/Ml Sdv 2 Ml) 4 mg IVP Q8H PRN PRN Reason: vomiting, or N/V if npo Ondansetron HCl (Ondansetron 2 Mg/Ml Sdv 2 Ml) 4 mg IVP Q4H PRN PRN Reason: NAUSEA AND VOMITING Tramadol HCl (Tramadol 50 Mg Tablet) 50 mg PO Q4H PRN PRN Reason: MILD TO MODERATE PAIN Vitamin D (Cholecalciferol (Vitamin D3) 1,000 Unit Tablet) 2,000 unit PO DAILY [facility] Last Admin: 04/26/24 08:34 Dose: Not Given Vitals/I&O/Wt Last Vital Signs Temp 97.4 F L 04/30/24 11:51 Pulse 77 04/30/24 11:51 Resp 15 04/30/24 11:51 BP 142/76 04/30/24 11:51 Pulse Ox 96 04/30/24 11:51 O2 Del Method Nasal Cannula 04/30/24 11:51 O2 Flow Rate 6 04/30/24 08:10 FiO2 50 04/29/24 14:31 04/29/24 04/30/24 04/30/24 22:59 06:59 14:59 Intake Total 290 / 662 610 / 610 Balance 290 / 662 610 / 610 Weight last 48 hrs Weight 69.989 kg Weight 71.033 kg Weight 72.9 kg Physical Exam Narrative: General: No acute distress, AO x3 HEENT: PERRLA, pupils bilaterally equal and reactive, pallors not present Chest: Crackles to auscultation right side CVS: S1-S2 regular, no murmurs, no tachycardia, no gallops, no rubs Abdomen: Soft, nontender, no organomegaly, bowel sounds present Neuro: No focal deficits, no facial deformity, AO x3, power 5/5 in all limbs Extremities: No edema clubbing or cyanosis Urinary Catheter Management: Sepulveda: Cath Placed During This Visit: yes, but has since been removed by the nurse Reason for Continuing Indwelling Catheter: Decision to DC Catheter Date Urinary Catheter Removed: 04/27/24 Time Urinary Catheter Discontinued: 05:45 Data 04/30/24 04:23 04/30/24 04:23 Micro: Microbiology 04/25/24 17:45 Urine Culture - Final Urine,Clean Catch Streptococcus species 04/29/24 08:46 Gram Stain - Final Sputum - Expectorated Sputum 04/28/24 13:45 Blood Culture - Preliminary Blood NEGATIVE TO DATE 04/28/24 13:45 Blood Culture - Preliminary Blood NEGATIVE TO DATE A&P Assessment and plan (1) ESRD (end stage renal disease): (2) Fracture of hip, left, closed: (3) Chronic gout: (4) Pleural effusion: (5) Hypertensive urgency: (6) Fall: (7) Aspiration pneumonia: (8) Acute hypoxic respiratory failure: (9) UTI (urinary tract infection): Plan Mechanical fall Hip fracture Dr. Lee consulted Patient will be kept n.p.o. after midnight Opioids along bowel regimen End-stage renal disease Wednesday last session was on Wednesday, he does have passive congestion but clinically does not look extremely fluid overloaded Nephro consulted, we may have to dialyze him on Wednesday in order to optimize him for surgery Chronic hypoxia requires 2 L of oxygen he uses mostly at nighttime Patient is not on any anticoagulating agent Hypertensive urgency avoid lisinopril in perioperative time Would use hydralazine, nifedipine, Coreg and keep IV hydralazine on board as well DNR/DNI discussed with the patient Lives alone Recent type II [place] stress test showed small jaylan-infarct ischemia which was managed medically as per cardiology Renal diet and then n.p.o. after midnight DVT prophylaxis: SCDs 04/25/2024 -Plan for surgery today. ? Patient underwent dialysis this morning. ? Continue nifedipine Coreg IV hydralazine and oral hydralazine. ? Nephrology following ? Orthopedic surgery consulted. Plan for procedure around 3 PM today. 04/28/2024 Patient is more lethargic today. Oxygen requirement had improved yesterday down to 4 L/min, however since this afternoon trending up to 15 L/min on a nonrebreather mask. ABG as noted above. Concern for possible PE with acutely worsened hypoxia. Check CTA of the chest to evaluate for this possibility. Will transition to heated high flow to maintain O2 sat ~90% patient has been getting scheduled nebulization with DuoNeb and budesonide since yesterday. Will add steroids given worsening hypoxia. Methylprednisolone 60 mg IV every 8 hours. Patient also appearing to be more lethargic somnolent today. He had last received 2 tablets of [place] at 12:20 PM. Will hold any further dose of opiates for now given increased lethargy. Pain management to be with Tylenol and tramadol alternating. Transiently hypotensive in dialysis today. Hold losartan. Reduce dose of carvedilol from 25 mg p.o. twice daily to 12.5 mg p.o. twice daily. Urine culture showing gamma hemolytic strep. Patient was on cefazolin until yesterday to cover for UTI and also cardio prophylaxis. Gamma hemolytic strep may represent Enterococcus, patient has a history of past enterococcal UTIs. Will start vancomycin empirically while pending identification and susceptibility. Hemoglobin at 8.2 today, closely monitor. Patient to benefit from continued hospitalization given worsening hypoxia today, needs further evaluation as noted above. Plan discussed with patient and his sister at bedside. 04/29/2024. Patient is awake and alert today. He is on heated high flow currently at 45% FiO2 40 L/min, attempts at weaning down oxygen today. He was transiently hypotensive yesterday afternoon and was moved into the ICU for anticipated pressor support, however ultimately did not need any Levophed. Antihypertensives have been on hold for this reason. He feels better today. Encouraged to ambulate. He has not been out of bed since his surgery. Discussed with him that he has developed a right-sided pneumonia as seen on CTA of the chest which would be the explanation of his acute deterioration yesterday. He is currently on antibiotics with piperacillin/tazobactam and vancomycin., Hemolytic strep from the urine cultures are not further identified as of now. Concerned that patient may have aspiration from poor mobility. Encourage PT OT participation. Stable to be moved out of ICU back to [facility] today. He is currently on a dysphagia diet pending speech therapy evaluation. Sputum culture and Gram stain is pending. Continue steroids as started yesterday 60 mg IV every 8 hours. 04/30/2024. Patient is clinically improving. He is alert and awake. Oxygen requirement now down to 6 L/min via high flow nasal cannula. Baseline patient is on 4 L/min supplemental O2. Did not see physical therapy yesterday, however did perform exercises in bed. He was very motivated to move, was sitting on side of the bed and attempting to move with his family. Assessed by speech therapy, recommended to continue dysphagia 5 diet. Follow-up pending sputum culture. Reduce steroids to methylprednisolone 60 IV every 24 hours Urine culture updated to reflect Streptococcus species. Discontinue vancomycin. Continue piperacillin/tazobactam to cover for aspiration pneumonia and also for the UTI.Continue to encourage ambulation. PT OT to reevaluate upon their return on Wednesday. Plan for dialysis tomorrow. Trending towards hypertension today. Increase carvedilol back to her usual dosing of 25 mg twice daily. Resume nifedipine, however would use 60 mg dose for now. If blood pressure continues to be uncontrolled, increase to home dosing of 120 daily. Losartan was recently started by nephrology. It was placed on hold due to hypotension 2 days ago. After increasing nifedipine dose if blood pressure still uncontrolled would resume losartan. Attestations Medical Necessity Statement*: Continue IV antibiotics, dialysis tomorrow, appropriate disposition planning ongoing Coding Level of Care Code Acute Code for Chg Fwd High MDM includes number and complexity of problems actively addressed during encounter, amount and/or complexity of data reviewed/ordered and described risk of complication, morbidity or mortality of management as documented Diagnoses ESRD (end stage renal disease) N18.6 Fracture of hip, left, closed S72.002A Chronic gout M1A.9XX0 Pleural effusion J90 Hypertensive urgency I16.0 Fall W19.XXXA Aspiration pneumonia J69.0 Acute hypoxic respiratory failure J96.01 UTI (urinary tract infection) N39.0
[2024-04-30] MEDS: carvedilol 25 mg Tablet PO (17:29)
[2024-04-30] MEDS: atorvastatin 40 mg Tablet 20 MG PO (17:29)
[2024-05-01] VITALS (12 sets, daily range): BP systolic 89–188; BP diastolic 45–82; PULSE 60–67; RESP 16–19; TEMP 36.5–36.7; O2SAT 87–99
[2024-05-01] MEDS: ipratropium-albuterol 3 mL Neb INHALATION ×4 (02:24→20:25)
[2024-05-01 05:02] LABS: Hematocrit 25.4 % (37-53); Lymphocytes # 0.5 10^3/uL (0.8-4.8); Lymphocytes % 6.2 %; Mean Corpuscular HGB Conc 31.5 g/dL (30-55); Mean Corpuscular Hemoglobin 28.8 pg (27-33); Mean Corpuscular Volume 91.4 fl (82-101); Mean Platelet Volume 11.6 fL (7.4-10.4); Monocytes # 0.8 10^3/uL (0.2-0.9); Monocytes % 9.3 %; Neutrophils # 7.06 10^3/uL (1.8-7.7); Neutrophils % 82.9 %; Nucleated Red Blood Cells % 0 %; Platelet Count 221 10^3/cmm (157-399); Red Blood Count 2.78 10^6/uL (3.85-5.65); Red Cell Distribution Width 17.4 % (12.1-15.1); White Blood Count 8.52 10^3/uL (3.29-11.43)
[2024-05-01] MEDS: piperacillin-tazobactam 3.375 GM in sodium chloride 0.9% (plus) 50 ML IV ×2 (05:12→17:08)
[2024-05-01] MEDS: heparin 5,000 unit/mL INJ 1 mL 5000 UNIT SUBCUT ×2 (05:12→17:08)
[2024-05-01 05:58] LABS: Folate Level 9.3 ng/mL (4.5-32.2)
[2024-05-01 06:14] LABS: Alanine Aminotransferase < 5 U/L (0-41); Albumin Level 3.2 g/dL (3.5-5.2); Alkaline Phosphatase 127 U/L (40-130); Anion Gap 19.3 (5-19); Aspartate Amino Transferase 15 U/L (0-40); Blood Urea Nitrogen 41 mg/dL (8-23); Calcium 9.6 mg/dL (8.5-10.5); Carbon Dioxide 25 mmol/L (22-29); Chloride 93 mmol/L (98-107); Creatinine Clr Calc Pharmacy 12.1146; Globulin 3.3 g/dL (1.3-4.6); Glucose 124 mg/dL (65-115); Iron 83 ug/dL (59-158); Osmolality Calculated 288 mOsm/kg (285-295); Potassium 4.3 mmol/L (3.5-5.1); Sodium 133 mmol/L (136-145); Total Bilirubin 0.3 mg/dL (0.15-1.2); Total Protein 6.5 g/dL (6.6-8.7); Vitamin B12 441 pg/mL (232-1245)
[2024-05-01 07:42] LABS: Ferritin 2265 ng/mL (30-400)
[2024-05-01] MEDS: budesonide 0.5 mg/2 mL Neb INHALATION ×2 (08:25→20:25)
--- NOTE | 2024-05-01 09:07 | P.PN_ITS ---
Subjective 2 Subjective: no new c/o on 5l nc Medications: Reviewed: Yes Vitals/I&O/Wt Last Vital Signs Temp 97.9 F 05/01/24 07:43 Pulse 64 05/01/24 08:27 Resp 18 05/01/24 08:27 BP 155/60 05/01/24 07:43 Pulse Ox 95 05/01/24 08:27 O2 Del Method High Flow Nasal Cannula 05/01/24 08:27 O2 Flow Rate 5 05/01/24 08:27 FiO2 50 04/29/24 14:31 04/30/24 05/01/24 05/01/24 22:59 06:59 14:59 Intake Total 670 / 1280 360 / 1640 480 / 480 Output Total 3002 / 3002 Balance -2332 / -1722 360 / -1362 480 / 480 Weight last 48 hrs Weight 69.944 kg Weight 70.1 kg Weight 69.989 kg Physical Exam 2 Narrative: awake , alert HEENT SQS2 RRR per report Lungs clear per report No edema Urinary Catheter Management: Sepulveda: Cath Placed During This Visit: yes, but has since been removed by the nurse Reason for Continuing Indwelling Catheter: Decision to DC Catheter Date Urinary Catheter Removed: 04/27/24 Time Urinary Catheter Discontinued: 05:45 Data 05/01/24 04:11 05/01/24 04:11 Micro: Microbiology 04/29/24 08:46 Gram Stain - Final Sputum - Expectorated Sputum Sputum Culture - Preliminary Gram Negative Rods Gram Negative Rods#2 04/25/24 17:45 Urine Culture - Final Urine,Clean Catch Streptococcus species A&P Assessment and plan (1) ESRD (end stage renal disease): 84-year-old gentleman ESRD hypertension heart failure preserved EF with mild to moderate aortic stenosis. The patient is status post left hip fracture from a fall on 04-25-24. 1. ESRD- s/p HD WEDNESDAY , HD TOmorrow 2. HTN : Monitor 3. Anemia :JANIE with hD iron sat 15%, ferritin 2092- no iv iron 4. Heart failure preserved EF w/ ext edema and JAYDEN inhibitor. 5. Acute on chronic resp failure : on 60 % Fio2 , CTA shows mucus pligging right main stem bronchus and jeanette pleural effusions , compressive atelectasis 6. AMS ,hypotension --> transferred to ICU ,improved The patient was seen and examined using A/V equipment as a telehealth visit. The patient consented to hemodialysis and telehealth. Plan See above. dec medications. Evaluate shortness of breath and treat appropriately. Attestations 2 Medical Necessity Statement*: per blair Coding Level of Care Code Acute Code for Chg Fwd Diagnoses ESRD (end stage renal disease) N18.6
[2024-05-01] MEDS: calcium acetate 667 mg Capsule PO ×2 (09:41→17:08)
[2024-05-01] MEDS: cholecalciferol (vitamin D3) 1,000 unit Tablet 2000 UNIT PO (09:41)
[2024-05-01] MEDS: allopurinol 100 mg Tablet PO (09:42)
[2024-05-01] MEDS: carvedilol 25 mg Tablet PO ×2 (09:42→17:47)
[2024-05-01] MEDS: NIFEdipine ER (24 hr) 30 mg Tablet 60 MG PO (09:42)
[2024-05-01] MEDS: pantoprazole DR 40 mg Tablet PO (09:42)
--- NOTE | 2024-05-01 10:36 | PC.SOCIAL ---
IMM Updated Updated pt on IMM. No questions voiced. Provided pt a copy. Initialed, dated, & timed copy in chart.
--- NOTE | 2024-05-01 12:34 | PM.PN ---
Subjective Subjective: Seen this morning. Resting comfortably in bed. Family member at bedside. on 5 L nasal cannula at this time. Vitals/I&O/Wt Last Vital Signs Temp 97.8 F 05/01/24 11:59 Pulse 60 05/01/24 11:59 Resp 18 05/01/24 11:59 BP 175/82 05/01/24 11:59 Pulse Ox 99 05/01/24 11:59 O2 Del Method Nasal Cannula 05/01/24 11:59 O2 Flow Rate 5 05/01/24 08:27 FiO2 50 04/29/24 14:31 04/30/24 05/01/24 05/01/24 22:59 06:59 14:59 Intake Total 670 / 1280 360 / 1640 530 / 530 Output Total 3002 / 3002 Balance -2332 / -1722 360 / -1362 530 / 530 Weight last 48 hrs Weight 69.944 kg Weight 70.1 kg Weight 69.989 kg Physical Exam Narrative: General: No acute distress, AO x3 HEENT: PERRLA, pupils bilaterally equal and reactive, pallors not present Chest: Very mild crackles on right base. Otherwise clear to auscultation. CVS: S1-S2 regular, no murmurs, no tachycardia, no gallops, no rubs Abdomen: Soft, nontender, no organomegaly, bowel sounds present Neuro: No focal deficits, no facial deformity, AO x3, power 5/5 in all limbs Extremities: No edema clubbing or cyanosis Urinary Catheter Management: Sepulveda: Cath Placed During This Visit: yes, but has since been removed by the nurse Reason for Continuing Indwelling Catheter: Decision to DC Catheter Date Urinary Catheter Removed: 04/27/24 Time Urinary Catheter Discontinued: 05:45 Data 05/01/24 04:11 05/01/24 04:11 Micro: Microbiology 04/29/24 08:46 Gram Stain - Final Sputum - Expectorated Sputum Sputum Culture - Preliminary Escherichia coli Gram Negative Rods#2 04/25/24 17:45 Urine Culture - Final Urine,Clean Catch Streptococcus species A&P Assessment and plan (1) ESRD (end stage renal disease): (2) Fracture of hip, left, closed: (3) Chronic gout: (4) Pleural effusion: (5) Hypertensive urgency: (6) Fall: (7) Aspiration pneumonia: (8) Acute hypoxic respiratory failure: (9) UTI (urinary tract infection): Plan Mechanical fall Hip fracture Dr. Lee consulted Patient will be kept n.p.o. after midnight Opioids along bowel regimen End-stage renal disease Wednesday last session was on Wednesday, he does have passive congestion but clinically does not look extremely fluid overloaded Nephro consulted, we may have to dialyze him on Wednesday in order to optimize him for surgery Chronic hypoxia requires 2 L of oxygen he uses mostly at nighttime Patient is not on any anticoagulating agent Hypertensive urgency avoid lisinopril in perioperative time Would use hydralazine, nifedipine, Coreg and keep IV hydralazine on board as well DNR/DNI discussed with the patient Lives alone Recent type II [place] stress test showed small jaylan-infarct ischemia which was managed medically as per cardiology Renal diet and then n.p.o. after midnight DVT prophylaxis: SCDs 04/25/2024 -Plan for surgery today. ? Patient underwent dialysis this morning. ? Continue nifedipine Coreg IV hydralazine and oral hydralazine. ? Nephrology following ? Orthopedic surgery consulted. Plan for procedure around 3 PM today. 04/28/2024 Patient is more lethargic today. Oxygen requirement had improved yesterday down to 4 L/min, however since this afternoon trending up to 15 L/min on a nonrebreather mask. ABG as noted above. Concern for possible PE with acutely worsened hypoxia. Check CTA of the chest to evaluate for this possibility. Will transition to heated high flow to maintain O2 sat ~90% patient has been getting scheduled nebulization with DuoNeb and budesonide since yesterday. Will add steroids given worsening hypoxia. Methylprednisolone 60 mg IV every 8 hours. Patient also appearing to be more lethargic somnolent today. He had last received 2 tablets of [place] at 12:20 PM. Will hold any further dose of opiates for now given increased lethargy. Pain management to be with Tylenol and tramadol alternating. Transiently hypotensive in dialysis today. Hold losartan. Reduce dose of carvedilol from 25 mg p.o. twice daily to 12.5 mg p.o. twice daily. Urine culture showing gamma hemolytic strep. Patient was on cefazolin until yesterday to cover for UTI and also cardio prophylaxis. Gamma hemolytic strep may represent Enterococcus, patient has a history of past enterococcal UTIs. Will start vancomycin empirically while pending identification and susceptibility. Hemoglobin at 8.2 today, closely monitor. Patient to benefit from continued hospitalization given worsening hypoxia today, needs further evaluation as noted above. Plan discussed with patient and his sister at bedside. 04/29/2024. Patient is awake and alert today. He is on heated high flow currently at 45% FiO2 40 L/min, attempts at weaning down oxygen today. He was transiently hypotensive yesterday afternoon and was moved into the ICU for anticipated pressor support, however ultimately did not need any Levophed. Antihypertensives have been on hold for this reason. He feels better today. Encouraged to ambulate. He has not been out of bed since his surgery. Discussed with him that he has developed a right-sided pneumonia as seen on CTA of the chest which would be the explanation of his acute deterioration yesterday. He is currently on antibiotics with piperacillin/tazobactam and vancomycin., Hemolytic strep from the urine cultures are not further identified as of now. Concerned that patient may have aspiration from poor mobility. Encourage PT OT participation. Stable to be moved out of ICU back to [facility] today. He is currently on a dysphagia diet pending speech therapy evaluation. Sputum culture and Gram stain is pending. Continue steroids as started yesterday 60 mg IV every 8 hours. 04/30/2024. Patient is clinically improving. He is alert and awake. Oxygen requirement now down to 6 L/min via high flow nasal cannula. Baseline patient is on 4 L/min supplemental O2. Did not see physical therapy yesterday, however did perform exercises in bed. He was very motivated to move, was sitting on side of the bed and attempting to move with his family. Assessed by speech therapy, recommended to continue dysphagia 5 diet. Follow-up pending sputum culture. Reduce steroids to methylprednisolone 60 IV every 24 hours Urine culture updated to reflect Streptococcus species. Discontinue vancomycin. Continue piperacillin/tazobactam to cover for aspiration pneumonia and also for the UTI.Continue to encourage ambulation. PT OT to reevaluate upon their return on Wednesday. Plan for dialysis tomorrow. Trending towards hypertension today. Increase carvedilol back to her usual dosing of 25 mg twice daily. Resume nifedipine, however would use 60 mg dose for now. If blood pressure continues to be uncontrolled, increase to home dosing of 120 daily. Losartan was recently started by nephrology. It was placed on hold due to hypotension 2 days ago. After increasing nifedipine dose if blood pressure still uncontrolled would resume losartan. 05/01/2024 Patient is on 5 L nasal cannula at this time. Sitting up in bed. Continue dysphagia 5 diet. Sputum culture growing E. coli and another gram-negative felisha. Continue Zosyn at this time. Urine culture positive for Streptococcus species. Final speciation pending at this time. Continue nifedipine 120 daily. Restart losartan. Continue Coreg 25 twice daily. Continue methylprednisolone 60 every 24 hours PT assessment pending today. Await final speciation of sputum culture and urine culture prior to discharge. Check home oxygen evaluation Attestations Medical Necessity Statement*: Continue IV antibiotics, dialysis tomorrow, appropriate disposition planning ongoing Coding Level of Care Code Acute Code for [facility] Fwd Diagnoses ESRD (end stage renal disease) N18.6 Fracture of hip, left, closed S72.002A Chronic gout M1A.[id number] Pleural effusion J90 Hypertensive urgency I16.0 Fall W19.XXXA Aspiration pneumonia J69.0 Acute hypoxic respiratory failure J96.01 UTI (urinary tract infection) N39.0
[2024-05-01] MEDS: methylPREDNISolone sod succ 40 mg/mL INJ 60 MG IVP (14:42)
[2024-05-01] MEDS: atorvastatin 40 mg Tablet 20 MG PO (17:08)
[2024-05-02] VITALS (13 sets, daily range): BP systolic 137–188; BP diastolic 59–83; PULSE 59–73; RESP 15–19; TEMP 36.3–36.7; O2SAT 91–100
[2024-05-02] MEDS: ipratropium-albuterol 3 mL Neb INHALATION ×2 (03:06→08:58)
[2024-05-02 05:12] LABS: Basophils % 0.1 %; Hematocrit 25.9 % (37-53); Lymphocytes # 0.9 10^3/uL (0.8-4.8); Mean Corpuscular HGB Conc 30.9 g/dL (30-55); Mean Corpuscular Hemoglobin 28.3 pg (27-33); Mean Corpuscular Volume 91.5 fl (82-101); Mean Platelet Volume 11.6 fL (7.4-10.4); Monocytes # 0.8 10^3/uL (0.2-0.9); Monocytes % 8.7 %; Neutrophils # 6.61 10^3/uL (1.8-7.7); Neutrophils % 76.7 %; Nucleated Red Blood Cells % 0 %; Platelet Count 242 10^3/cmm (157-399); Red Blood Count 2.83 10^6/uL (3.85-5.65); Red Cell Distribution Width 17.3 % (12.1-15.1); White Blood Count 8.62 10^3/uL (3.29-11.43)
[2024-05-02] MEDS: heparin 5,000 unit/mL INJ 1 mL 5000 UNIT SUBCUT (05:12)
[2024-05-02] MEDS: piperacillin-tazobactam 3.375 GM in sodium chloride 0.9% (plus) 50 ML IV ×2 (05:12→20:41)
[2024-05-02 05:55] LABS: Anion Gap 19.8 (5-19); Blood Urea Nitrogen 62 mg/dL (8-23); Calcium 8.5 mg/dL (8.5-10.5); Carbon Dioxide 24 mmol/L (22-29); Chloride 91 mmol/L (98-107); Creatinine Clr Calc Pharmacy 9.5402; Glucose 119 mg/dL (65-115); Magnesium 2.4 mg/dL (1.7-2.3); Osmolality Calculated 289 mOsm/kg (285-295); Potassium 4.8 mmol/L (3.5-5.1); Sodium 130 mmol/L (136-145)
--- NOTE | 2024-05-02 08:41 | PM.PN ---
Subjective Subjective: seen today no acute events overnight family at bedside plan for dialysis today feels better at baseline o2 Vitals/I&O/Wt Last Vital Signs Temp 97.9 F 05/03/24 08:00 Pulse 65 05/03/24 08:00 Resp 17 05/03/24 08:00 BP 143/69 05/03/24 08:00 Pulse Ox 93 05/03/24 08:00 O2 Del Method Room Air 05/03/24 08:00 O2 Flow Rate 2 05/02/24 08:59 FiO2 50 04/29/24 14:31 05/02/24 05/03/24 05/03/24 22:59 06:59 14:59 Intake Total 50 / 460 480 / 480 Output Total 100 / 100 Balance 50 / 460 380 / 380 Weight last 48 hrs Weight 68.402 kg Weight 67.812 kg Physical Exam Narrative: General: No acute distress, AO x3 HEENT: PERRLA, pupils bilaterally equal and reactive, pallors not present Chest:. clear to auscultation. CVS: S1-S2 regular, no murmurs, no tachycardia, no gallops, no rubs Abdomen: Soft, nontender, no organomegaly, bowel sounds present Neuro: No focal deficits, no facial deformity, AO x3, power 5/5 in all limbs Extremities: No edema clubbing or cyanosis Urinary Catheter Management: Sepulveda: Cath Placed During This Visit: yes, but has since been removed by the nurse Reason for Continuing Indwelling Catheter: Decision to DC Catheter Date Urinary Catheter Removed: 04/27/24 Time Urinary Catheter Discontinued: 05:45 Data 05/02/24 04:37 05/02/24 04:37 Micro: Microbiology 04/29/24 08:46 Gram Stain - Final Sputum - Expectorated Sputum Sputum Culture - Final Escherichia coli Enterobacter aerogenes A&P Assessment and plan (1) ESRD (end stage renal disease): (2) Fracture of hip, left, closed: (3) Chronic gout: (4) Pleural effusion: (5) Hypertensive urgency: (6) Fall: (7) Aspiration pneumonia: (8) Acute hypoxic respiratory failure: (9) UTI (urinary tract infection): Plan Mechanical fall Hip fracture Dr. Lee consulted Patient will be kept n.p.o. after midnight Opioids along bowel regimen End-stage renal disease Wednesday last session was on Wednesday, he does have passive congestion but clinically does not look extremely fluid overloaded Nephro consulted, we may have to dialyze him on Wednesday in order to optimize him for surgery Chronic hypoxia requires 2 L of oxygen he uses mostly at nighttime Patient is not on any anticoagulating agent Hypertensive urgency avoid lisinopril in perioperative time Would use hydralazine, nifedipine, Coreg and keep IV hydralazine on board as well DNR/DNI discussed with the patient Lives alone Recent type II [place] stress test showed small jaylan-infarct ischemia which was managed medically as per cardiology Renal diet and then n.p.o. after midnight DVT prophylaxis: SCDs 04/25/2024 -Plan for surgery today. ? Patient underwent dialysis this morning. ? Continue nifedipine Coreg IV hydralazine and oral hydralazine. ? Nephrology following ? Orthopedic surgery consulted. Plan for procedure around 3 PM today. 04/28/2024 Patient is more lethargic today. Oxygen requirement had improved yesterday down to 4 L/min, however since this afternoon trending up to 15 L/min on a nonrebreather mask. ABG as noted above. Concern for possible PE with acutely worsened hypoxia. Check CTA of the chest to evaluate for this possibility. Will transition to heated high flow to maintain O2 sat ~90% patient has been getting scheduled nebulization with DuoNeb and budesonide since yesterday. Will add steroids given worsening hypoxia. Methylprednisolone 60 mg IV every 8 hours. Patient also appearing to be more lethargic somnolent today. He had last received 2 tablets of [place] at 12:20 PM. Will hold any further dose of opiates for now given increased lethargy. Pain management to be with Tylenol and tramadol alternating. Transiently hypotensive in dialysis today. Hold losartan. Reduce dose of carvedilol from 25 mg p.o. twice daily to 12.5 mg p.o. twice daily. Urine culture showing gamma hemolytic strep. Patient was on cefazolin until yesterday to cover for UTI and also cardio prophylaxis. Gamma hemolytic strep may represent Enterococcus, patient has a history of past enterococcal UTIs. Will start vancomycin empirically while pending identification and susceptibility. Hemoglobin at 8.2 today, closely monitor. Patient to benefit from continued hospitalization given worsening hypoxia today, needs further evaluation as noted above. Plan discussed with patient and his sister at bedside. 04/29/2024. Patient is awake and alert today. He is on heated high flow currently at 45% FiO2 40 L/min, attempts at weaning down oxygen today. He was transiently hypotensive yesterday afternoon and was moved into the ICU for anticipated pressor support, however ultimately did not need any Levophed. Antihypertensives have been on hold for this reason. He feels better today. Encouraged to ambulate. He has not been out of bed since his surgery. Discussed with him that he has developed a right-sided pneumonia as seen on CTA of the chest which would be the explanation of his acute deterioration yesterday. He is currently on antibiotics with piperacillin/tazobactam and vancomycin., Hemolytic strep from the urine cultures are not further identified as of now. Concerned that patient may have aspiration from poor mobility. Encourage PT OT participation. Stable to be moved out of ICU back to [facility] today. He is currently on a dysphagia diet pending speech therapy evaluation. Sputum culture and Gram stain is pending. Continue steroids as started yesterday 60 mg IV every 8 hours. 04/30/2024. Patient is clinically improving. He is alert and awake. Oxygen requirement now down to 6 L/min via high flow nasal cannula. Baseline patient is on 4 L/min supplemental O2. Did not see physical therapy yesterday, however did perform exercises in bed. He was very motivated to move, was sitting on side of the bed and attempting to move with his family. Assessed by speech therapy, recommended to continue dysphagia 5 diet. Follow-up pending sputum culture. Reduce steroids to methylprednisolone 60 IV every 24 hours Urine culture updated to reflect Streptococcus species. Discontinue vancomycin. Continue piperacillin/tazobactam to cover for aspiration pneumonia and also for the UTI.Continue to encourage ambulation. PT OT to reevaluate upon their return on Wednesday. Plan for dialysis tomorrow. Trending towards hypertension today. Increase carvedilol back to her usual dosing of 25 mg twice daily. Resume nifedipine, however would use 60 mg dose for now. If blood pressure continues to be uncontrolled, increase to home dosing of 120 daily. Losartan was recently started by nephrology. It was placed on hold due to hypotension 2 days ago. After increasing nifedipine dose if blood pressure still uncontrolled would resume losartan. 05/01/2024 Patient is on 5 L nasal cannula at this time. Sitting up in bed. Continue dysphagia 5 diet. Sputum culture growing E. coli and another gram-negative felisha. Continue Zosyn at this time. Urine culture positive for Streptococcus species. Final speciation pending at this time. Continue nifedipine 120 daily. Restart losartan. Continue Coreg 25 twice daily. Continue methylprednisolone 60 every 24 hours PT assessment pending today. Await final speciation of sputum culture and urine culture prior to discharge. Check home oxygen evaluation 05/02/2024 continue to wean down o2 switch abx to levaquin, reviewed culture data plan for dialysis today home o2 eval planned BP improved adjust hydralazine dose 3 more days of steroid at dc plan for dc in AM Attestations Medical Necessity Statement*: plan for dc in am Coding Level of Care Code Acute Code for [facility] Fwd Diagnoses ESRD (end stage renal disease) N18.6 Fracture of hip, left, closed S72.002A Chronic gout M1A.9XX0 Pleural effusion J90 Hypertensive urgency I16.0 Fall W19.XXXA Aspiration pneumonia J69.0 Acute hypoxic respiratory failure J96.01 UTI (urinary tract infection) N39.0
[2024-05-02] MEDS: budesonide 0.5 mg/2 mL Neb INHALATION (08:58)
[2024-05-02] MEDS: allopurinol 100 mg Tablet PO (09:36)
[2024-05-02] MEDS: calcium acetate 667 mg Capsule PO (09:37)
[2024-05-02] MEDS: cholecalciferol (vitamin D3) 1,000 unit Tablet 2000 UNIT PO (09:38)
[2024-05-02] MEDS: carvedilol 25 mg Tablet PO ×2 (09:38→20:39)
[2024-05-02] MEDS: losartan 50 mg Tablet 25 MG PO (09:40)
[2024-05-02] MEDS: NIFEdipine ER (24 hr) 30 mg Tablet 120 MG PO (09:42)
[2024-05-02] MEDS: pantoprazole DR 40 mg Tablet PO (09:44)
[2024-05-02] MEDS: methylPREDNISolone sod succ 40 mg/mL INJ 60 MG IVP (15:31)
--- NOTE | 2024-05-02 17:12 | P.PN_ITS ---
Subjective 2 Subjective: no new c/o Medications: Reviewed: Yes Vitals/I&O/Wt Last Vital Signs Temp 97.6 F 05/02/24 16:00 Pulse 61 05/02/24 16:00 Resp 17 05/02/24 16:00 BP 166/83 05/02/24 16:00 Pulse Ox 94 05/02/24 16:00 O2 Del Method Room Air 05/02/24 16:00 O2 Flow Rate 2 05/02/24 08:59 FiO2 50 04/29/24 14:31 05/02/24 05/02/24 05/02/24 06:59 14:59 22:59 Intake Total 410 / 410 Balance 410 / 410 Weight last 48 hrs Weight 67.812 kg Weight 69.944 kg Weight 70.1 kg Physical Exam 2 Narrative: awake , alert HEENT SQS2 RRR per report Lungs clear per report No edema Urinary Catheter Management: Sepulveda: Cath Placed During This Visit: yes, but has since been removed by the nurse Reason for Continuing Indwelling Catheter: Decision to DC Catheter Date Urinary Catheter Removed: 04/27/24 Time Urinary Catheter Discontinued: 05:45 Data 05/02/24 04:37 05/02/24 04:37 Micro: Microbiology 04/29/24 08:46 Gram Stain - Final Sputum - Expectorated Sputum Sputum Culture - Final Escherichia coli Enterobacter aerogenes A&P Assessment and plan (1) ESRD (end stage renal disease): 84-year-old gentleman ESRD hypertension heart failure preserved EF with mild to moderate aortic stenosis. The patient is status post left hip fracture from a fall on 04-25-24. 1. ESRD- s/p HD WEDNESDAY , HD Today 2. HTN : Monitor 3. Anemia :JANIE with hD iron sat 15%, ferritin 2092- no iv iron 4. Heart failure preserved EF w/ ext edema and JAYDEN inhibitor. 5. Acute on chronic resp failure : on 60 % Fio2 , CTA shows mucus pligging right main stem bronchus and jeanette pleural effusions , compressive atelectasis 6. AMS ,hypotension --> transferred to ICU ,improved The patient was seen and examined using A/V equipment as a telehealth visit. The patient consented to hemodialysis and telehealth. Plan See above. dec medications. Evaluate shortness of breath and treat appropriately. Attestations 2 Medical Necessity Statement*: per medicne Coding Level of Care Code Acute Code for [facility] Fwd Diagnoses ESRD (end stage renal disease) N18.6
--- NOTE | 2024-05-02 17:19 | PC.OT ---
OT tx attempted. Pt in dialysis and planned to discharge later today.
[2024-05-02] MEDS: atorvastatin 40 mg Tablet 20 MG PO (20:39)
[2024-05-03] VITALS (7 sets, daily range): BP systolic 136–159; BP diastolic 62–69; PULSE 64–74; RESP 15–18; TEMP 36.5–36.7; O2SAT 91–95
--- NOTE | 2024-05-03 08:00 | CTR_ITS ---
PROCEDURE INFORMATION: Exam: CT Abdomen And Pelvis Without Contrast Exam date and time: 05/03/2024 6:14 AM Age: 84 years old Clinical indication: Abdominal pain; Additional info: Hernia TECHNIQUE: Imaging protocol: Computed tomography of the abdomen and pelvis without contrast. Radiation optimization: All CT scans at this facility use at least one of these dose optimization techniques: automated exposure control; mA and/or kV adjustment per patient size (includes targeted exams where dose is matched to clinical indication); or iterative reconstruction. COMPARISON: CT kidney stone [id number] 12/10/2020 11:51 AM RADIATION DOSE METRICS: Total DLP (mGy-cm): 472.48 FINDINGS: Lungs: There is compressive atelectasis at the lung bases. Pleural spaces: There is a kyyybjzj-oo-akfel right pleural effusion with smaller left pleural effusion. Liver: Normal. No mass. Gallbladder and biliary ducts: There may be tiny stones or sludge within the gallbladder. No pericholecystic inflammatory changes noted. Pancreas: There is a cystic lesion involving the junction of the pancreatic head and body measuring 11.5 mm in size (previously 7 mm). This may represent a cystic pancreatic neoplasm. The pancreas otherwise has a normal noncontrast appearance. Spleen: Normal. No splenomegaly. Adrenal glands: Normal. No mass. Kidneys and ureters: The kidneys are somewhat atrophic worse on the right than on the left. There are a combination of benign appearing cysts as well as hyperdense lesions involving the kidneys. The hyperdense lesion involving the lower pole of the left kidney measures 18 mm in size (previously 15 mm). Mixed density lesion involving the mid pole of the right kidney measures 20 mm in size (previously 13 mm). Nonobstructing renal calculus is noted on the left. No hydronephrosis is appreciated. Stomach and bowel: No dilated loops of large or small bowel is appreciated. There are scattered colonic diverticula. No bowel wall thickening is identified. Appendix: No evidence of appendicitis. Intraperitoneal space: Unremarkable. No free air. No significant fluid collection. Vasculature: No aneurysm is identified. There is extensive calcified plaque involving the aorta and its branch vessels. There is a fem-fem bypass graft. Lymph nodes: Unremarkable. No enlarged lymph nodes. Urinary bladder: Unremarkable as visualized. Reproductive: Unremarkable as visualized. Bones/joints: There are postoperative changes involving the proximal left femur. No blastic or lytic bony lesions are appreciated. Soft tissues: There is a left inguinal hernia with a loop of colon extending into the hernia defect. No obstruction or wall thickening is noted. CT/CT abdomen pelvis wo con [id number] IMPRESSION: 1. Left inguinal hernia defect with a loop of large bowel extending into the defect. There is no obstruction or inflammatory change noted involving the loop of bowel. 2. Bilateral pleural effusions with compressive atelectasis worse on the right than on the left. 3. Somewhat atrophic kidneys with simple and hyperdense lesions involving both kidneys. A few of the lesions are slightly larger. Lesions are indeterminate in etiology. If further evaluation is desired, MRI with without IV contrast renal mass protocol would be recommended. 4. 11.5 mm cystic lesion involving the pancreas . This may represent a cystic pancreatic neoplasm. If further evaluation is desired, MRI with without IV contrast pancreatic protocol would be recommended. 5. Diverticulosis. COMMENTS: Consistent with the [employer]'s Incidental Findings Committee white paper (J Am Donna Radiol 2018): Any incidental renal lesion less than 1 cm or classified as too small to characterize, or any incidental cystic renal lesion characterized as simple-appearing, is likely benign. No follow-up imaging is recommended for these lesions per consensus recommendations based on imaging criteria.
[2024-05-03] MEDS: NIFEdipine ER (24 hr) 30 mg Tablet 120 MG PO (08:40)
[2024-05-03] MEDS: pantoprazole DR 40 mg Tablet PO (08:40)
[2024-05-03] MEDS: allopurinol 100 mg Tablet PO (08:40)
[2024-05-03] MEDS: calcium acetate 667 mg Capsule PO (08:40)
[2024-05-03] MEDS: carvedilol 25 mg Tablet PO (08:40)
[2024-05-03] MEDS: cholecalciferol (vitamin D3) 1,000 unit Tablet 2000 UNIT PO (08:41)
[2024-05-03] MEDS: losartan 50 mg Tablet 25 MG PO (08:41)
[2024-05-03] MEDS: TRAMadol 50 mg Tablet PO (08:41)
[2024-05-03] MEDS: piperacillin-tazobactam 3.375 GM in sodium chloride 0.9% (plus) 50 ML IV (08:41)
--- NOTE | 2024-05-03 08:42 | P.DS_ITS ---
Discharge Providers Date of Admission: 04/25/24 18:34 Date of Discharge: May 02, 2024 Attending Provider at Admission: Carrie Johnson MD Attending Provider at Discharge: Carrie Johnson MD Primary Care Provider: Humera Mayen MD Diagnoses at Discharge Discharge Diagnosis (1) ESRD (end stage renal disease): Status: Acute (2) Fracture of hip, left, closed: Status: Resolved (3) Chronic gout: Status: Acute (4) Pleural effusion: Status: Resolved (5) Hypertensive urgency: Status: Resolved (6) Fall: Status: Resolved (7) Aspiration pneumonia: Status: Resolved (8) Acute hypoxic respiratory failure: Status: Resolved (9) UTI (urinary tract infection): Status: Resolved Reason for Visit Reason for Visit: Left hip pain- Fall Hospital Course Hospital Course Mechanical fall Hip fracture Dr. Lee consulted Patient will be kept n.p.o. after midnight Opioids along bowel regimen End-stage renal disease Wednesday last session was on Wednesday, he does have passive congestion but clinically does not look extremely fluid overloaded Nephro consulted, we may have to dialyze him on Wednesday in order to optimize him for surgery Chronic hypoxia requires 2 L of oxygen he uses mostly at nighttime Patient is not on any anticoagulating agent Hypertensive urgency avoid lisinopril in perioperative time Would use hydralazine, nifedipine, Coreg and keep IV hydralazine on board as well DNR/DNI discussed with the patient Lives alone Recent type II MO stress test showed small jaylan-infarct ischemia which was managed medically as per cardiology Renal diet and then n.p.o. after midnight DVT prophylaxis: SCDs 04/25/2024 -Plan for surgery today. ? Patient underwent dialysis this morning. ? Continue nifedipine Coreg IV hydralazine and oral hydralazine. ? Nephrology following ? Orthopedic surgery consulted. Plan for procedure around 3 PM today. 04/28/2024 Patient is more lethargic today. Oxygen requirement had improved yesterday down to 4 L/min, however since this afternoon trending up to 15 L/min on a nonrebreather mask. ABG as noted above. Concern for possible PE with acutely worsened hypoxia. Check CTA of the chest to evaluate for this possibility. Will transition to heated high flow to maintain O2 sat ~90% patient has been getting scheduled nebulization with DuoNeb and budesonide since yesterday. Will add steroids given worsening hypoxia. Methylprednisolone 60 mg IV every 8 hours. Patient also appearing to be more lethargic somnolent today. He had last received 2 tablets of [place] at 12:20 PM. Will hold any further dose of opiates for now given increased lethargy. Pain management to be with Tylenol and tramadol alternating. Transiently hypotensive in dialysis today. Hold losartan. Reduce dose of carvedilol from 25 mg p.o. twice daily to 12.5 mg p.o. twice daily. Urine culture showing gamma hemolytic strep. Patient was on cefazolin until yesterday to cover for UTI and also cardio prophylaxis. Gamma hemolytic strep may represent Enterococcus, patient has a history of past enterococcal UTIs. Will start vancomycin empirically while pending identification and susceptibility. Hemoglobin at 8.2 today, closely monitor. Patient to benefit from continued hospitalization given worsening hypoxia today, needs further evaluation as noted above. Plan discussed with patient and his sister at bedside. 04/29/2024. Patient is awake and alert today. He is on heated high flow currently at 45% FiO2 40 L/min, attempts at weaning down oxygen today. He was transiently hypotensive yesterday afternoon and was moved into the ICU for anticipated pressor support, however ultimately did not need any Levophed. Antihypertensives have been on hold for this reason. He feels better today. Encouraged to ambulate. He has not been out of bed since his surgery. Discussed with him that he has developed a right-sided pneumonia as seen on CTA of the chest which would be the explanation of his acute deterioration yesterday. He is currently on antibiotics with piperacillin/tazobactam and vancomycin., Hemolytic strep from the urine cultures are not further identified as of now. Concerned that patient may have aspiration from poor mobility. Encourage PT OT participation. Stable to be moved out of ICU back to [facility] today. He is currently on a dysphagia diet pending speech therapy evaluation. Sputum culture and Gram stain is pending. Continue steroids as started yesterday 60 mg IV every 8 hours. 04/30/2024. Patient is clinically improving. He is alert and awake. Oxygen requirement now down to 6 L/min via high flow nasal cannula. Baseline patient is on 4 L/min supplemental O2. Did not see physical therapy yesterday, however did perform ex ercises in bed. He was very motivated to move, was sitting on side of the bed and attempting to move with his family. Assessed by speech therapy, recommended to continue dysphagia 5 diet. Follow-up pending sputum culture. Reduce steroids to methylprednisolone 60 IV every 24 hours Urine culture updated to reflect Streptococcus species. Discontinue vancomycin. Continue piperacillin/tazobactam to cover for aspiration pneumonia and also for the UTI.Continue to encourage ambulation. PT OT to reevaluate upon their return on Wednesday. Plan for dialysis tomorrow. Trending towards hypertension today. Increase carvedilol back to her usual dosing of 25 mg twice daily. Resume nifedipine, however would use 60 mg dose for now. If blood pressure continues to be uncontrolled, increase to home dosing of 120 daily. Losartan was recently started by nephrology. It was placed on hold due to hypotension 2 days ago. After increasing nifedipine dose if blood pressure still uncontrolled would resu me losartan. 05/01/2024 Patient is on 5 L nasal cannula at this time. Sitting up in bed. Continue dysphagia 5 diet. Sputum culture growing E. coli and another gram-negative felisha. Continue Zosyn at this time. Urine culture positive for Streptococcus species. Final speciation pending at this time. Continue nifedipine 120 daily. Restart losartan. Continue Coreg 25 twice daily. Continue methylprednisolone 60 every 24 hours PT assessment pending today. Await final speciation of sputum culture and urine culture prior to discharge. Check home oxygen evaluation 05/02/2024 continue to wean down o2 switch abx to levaquin, reviewed culture data plan for dialysis today home o2 eval planned BP improved adjust hydralazine dose 3 more days of steroid at dc plan for dc in AM 05/03 plan for dc today pt off o2 and on room air now send to snf with steroids and abx dvt ppx post hip fracture f/u with ortho surgery outpatient Physical Exam Narrative: General: No acute distress, AO x3 HEENT: PERRLA, pupils bilaterally equal and reactive, pallors not present Chest:. clear to auscultation. CVS: S1-S2 regular, no murmurs, no tachycardia, no gallops, no rubs Abdomen: Soft, nontender, no organomegaly, bowel sounds present Neuro: No focal deficits, no facial deformity, AO x3 Extremities: No edema clubbing or cyanosis Urinary Catheter Management: Sepulveda: Cath Placed During This Visit: yes, but has since been removed by the nurse Reason for Continuing Indwelling Catheter: Decision to DC Catheter Date Urinary Catheter Removed: 04/27/24 Time Urinary Catheter Discontinued: 05:45 Discharge Data Studies Completed and Pending Completed Studies During Hospitalization Category Date Time Status CTA chest [CT angio chest PE protcl [id number]] Routine Cat Scan 04/28/24 12:36 Completed XR chest 1V portable [id number] Stat Exams 04/25/24 16:37 Completed XR hip LT 2-3V wo/w pel* [id number] Routine Exams 04/26/24 00:00 Completed XR hip LT 2-3V wo/w pel* [id number] Stat Exams 04/25/24 16:30 [place] [id number] Stat Exams 04/25/24 16:35 Completed XR shoulder LT min 2V* [id number] Stat Exams 04/25/24 16:35 Completed Pending at discharge Category Date Time Status Blood Culture Stat Lab 04/28/24 13:45 Results Radiology Impressions Humerus X-Ray 04/25/24 16:35 IMPRESSION: No fracture. Shoulder X-Ray 04/25/24 16:35 IMPRESSION: No radiographic evidence of fracture. Chest X-Ray 04/25/24 16:37 IMPRESSION: 1. Moderate cardiomegaly with vascular congestion. 2. Moderate right and small left pleural effusions. . Hip/Pelvis X-Ray 04/26/24 00:00 Impression: Internal fixation of intertrochanteric fracture left hip. Chest CTA 04/28/24 12:36 IMPRESSION: 1. Mucus plugging in the right mainstem bronchus, the right upper, middle, and lower lobe bronchi and left lower lobe bronchi. 2. Moderate/large bilateral pleural effusions, larger on the right have increased in size. 3. Increasing compressive atelectasis in the right middle lobe and right and left lower lobes, underlying pneumonia cannot be ruled out. Recommend followup chest imaging to insure resolution of these findings. 4. Mild interstitial pulmonary edema. 5. No evidence for pulmonary embolism. 6. 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 7. Fluid in the thoracic esophagus. This could be due to retained esophageal contents from poor esophageal motility versus gastroesophageal reflux. Recommend clinical correlation. Upper GI examination may be obtained for further evaluation as clinically indicated. 8. Stable bilateral diaphragmatic and pleural calcifications. Differential diagnosis includes asbestos related pleural disease versus sequela of prior trauma or infection. Impression. Last. Incidental/nonacute findings are listed in the report. Laboratory Results WBC 8.62 10^3/uL (3.29-11.43) 05/02/24 04:37 RBC 2.83 10^6/uL (3.85-5.65) L 05/02/24 04:37 Hgb 8.00 g/dL (11.27-16.99) L 05/02/24 04:37 Hct 25.9 % (37-53) L 05/02/24 04:37 MCV 91.5 fl (82-101) 05/02/24 04:37 MCH 28.3 pg (27-33) 05/02/24 04:37 MCHC 30.9 g/dL (30-55) 05/02/24 04:37 RDW 17.3 % (12.1-15.1) H 05/02/24 04:37 Plt Count 242 10^3/cmm (157-399) 05/02/24 04:37 MPV 11.6 fL (7.4-10.4) H 05/02/24 04:37 Neut % (Auto) 76.7 % 05/02/24 04:37 Lymph % (Auto) 10.0 % 05/02/24 04:37 [place] % (Auto) 8.7 % 05/02/24 04:37 Eos % (Auto) 0.0 % 05/02/24 04:37 Baso % (Auto) 0.1 % 05/02/24 04:37 Neut # (Auto) 6.61 10^3/uL (1.8-7.7) 05/02/24 04:37 Lymph # (Auto) 0.9 10^3/uL (0.8-4.8) 05/02/24 04:37 [place] # (Auto) 0.8 10^3/uL (0.2-0.9) 05/02/24 04:37 Eos # (Auto) 0.0 10^3/uL (0.0-0.8) 05/02/24 04:37 Baso # (Auto) 0.0 10^3/uL (0.0-0.1) 05/02/24 04:37 Nucleated RBC % (auto) 0 % 05/02/24 04:37 Nucleated RBCs # 0.0 /100WBC 05/02/24 04:37 D-Dimer 5.16 ug/mLFEU (0-0.59) H 04/28/24 13:45 Specimen Type Arterial 04/28/24 12:36 Sample Site Radial, right 04/28/24 12:36 ABG pH 7.40 (7.35-7.45) 04/28/24 12:36 ABG pCO2 47.9 mmHg (35-45) H 04/28/24 12:36 ABG pO2 51.9 mmHg (80.0-100.0) L 04/28/24 12:36 ABG HCO3 29.8 mmol/L (22-26) H 04/28/24 12:36 ABG Base Excess 4.5 mmol/L (-2.0-2.0) H 04/28/24 12:36 [place] Test Pos 04/28/24 12:36 Hematocrit 27.0 % (42-52) L 04/28/24 12:36 O2 Delivery Device Oxy mask 04/28/24 12:36 O2 Liters/Min 15.0 % 04/28/24 12:36 Creative Project Manager ID [place] 04/28/24 12:36 Sodium 130 mmol/L (136-145) L 05/02/24 04:37 Potassium 4.8 mmol/L (3.5-5.1) 05/02/24 04:37 Chloride 91 mmol/L (98-107) L 05/02/24 04:37 Carbon Dioxide 24 mmol/L (22-29) 05/02/24 04:37 Anion Gap 19.8 (5-19) H 05/02/24 04:37 BUN 62 mg/dL (8-23) H 05/02/24 04:37 Creatinine 5.9 mg/dL (0.7-1.2) H* 05/02/24 04:37 GFR Calculation Not Reportable 05/02/24 04:37 Glucose 119 mg/dL (65-115) H 05/02/24 04:37 Calculated Osmolality 289 mOsm/kg (285-295) 05/02/24 04:37 Uric Acid 2.2 mg/dL (3.4-7.0) L 04/25/24 17:04 Calcium 8.5 mg/dL (8.5-10.5) 05/02/24 04:37 Phosphorus 3.1 mg/dL (2.5-4.5) 04/28/24 04:52 Magnesium 2.4 mg/dL (1.7-2.3) H 05/02/24 04:37 Iron 83 ug/dL (59-158) 05/01/24 04:11 TIBC 148 mcg/dl 04/26/24 05:06 % Saturation 15.5 % (20-50) L 04/26/24 05:06 Unsat Iron Binding 125 ug/dL (112-347) 04/26/24 05:06 Ferritin 2265 ng/mL (30-400) H 05/01/24 04:11 Total Bilirubin 0.3 mg/dL (0.15-1.2) 05/01/24 04:11 AST 15 U/L (0-40) 05/01/24 04:11 ALT < 5 U/L (0-41) 05/01/24 04:11 Alkaline Phosphatase 127 U/L (40-130) 05/01/24 04:11 Troponin T Baseline 95 ng/L (0-15) H 04/28/24 13:45 Troponin T 120 Minute 92.62 ng/L (0-15) H 04/28/24 15:28 Delta Troponin T -2.38 ABS# (0-10) L 04/28/24 15:28 Troponin T Hi Sens 6Hr 90.17 ng/L (0-15) H 04/28/24 19:26 Troponin T Hi Sens 6Hr Delta -4.83 ng/L (0-12) L 04/28/24 19:26 Total Protein 6.5 g/dL (6.6-8.7) L 05/01/24 04:11 Albumin 3.2 g/dL (3.5-5.2) L 05/01/24 04:11 Globulin 3.3 g/dL (1.3-4.6) 05/01/24 04:11 25-OH Vitamin D Total 55 ng/mL (30-100) 04/26/24 05:06 Vitamin B12 441 pg/mL (232-1245) 05/01/24 04:11 Folate 9.3 ng/mL (4.5-32.2) 05/01/24 04:11 Procalcitonin 0.36 ng/mL (0-0.5) 04/25/24 17:04 PTH Intact 70.3 pg/mL (15-65) H 04/26/24 05:06 Calcium (PTH Intact) 8.9 mg/dL (8.5-10.5) 04/26/24 05:06 Urine Color Yellow (Yellow) 04/25/24 17:45 Urine Appearance Clear (CLEAR) 04/25/24 17:45 Urine pH 8.5 (5-7) A 04/25/24 17:45 Ur Specific [place] 1.013 (1.005-1.030) 04/25/24 17:45 Urine Protein 3+ (Negative) A 04/25/24 17:45 Urine Glucose (UA) Negative (Normal) 04/25/24 17:45 Urine Ketones Negative (Negative) 04/25/24 17:45 Urine Blood Non-haemolysed trace (Negative) 04/25/24 17:45 Urine Nitrate Negative (Negative) 04/25/24 17:45 Urine Bilirubin Negative (Negative) 04/25/24 17:45 Urine Urobilinogen 1.0 mg/dL (Negative) 04/25/24 17:45 Ur Leukocyte Esterase 1+ (Negative) A 04/25/24 17:45 Urine RBC 3-5 /hpf (0-2) 04/25/24 17:45 Urine WBC >100 /hpf (0-5) H 04/25/24 17:45 Ur Squamous Epith Cells 0-5 /hpf (0-5) 04/25/24 17:45 Amorphous Sediment Not Reportable 04/25/24 17:45 Urine Bacteria 1+ /hpf (NONE) H 04/25/24 17:45 Hyaline Casts 2.87 /lpf 04/25/24 17:45 Random Vancomycin 22.0 ug/mL (20.0-40.0) 04/30/24 11:08 Coronavirus (PCR) Negative (Negative) 04/28/24 17:40 Hep Bs Antigen Non-reactive (Nonreactive) 04/25/24 17:04 Hep Bs Antibody 33.7 (11.5-1000) 04/25/24 17:04 Hepatitis C Antibody Non-reactive (Nonreactive) 04/25/24 17: Influenza A (PCR) Negative (Negative) 04/28/24 17:40 Influenza Type B (PCR) Negative (Negative) 04/28/24 17:40 RSV (PCR) Negative (Negative) 04/28/24 17:40 SARS-CoV-2 Ag (Rapid) Negative (Negative) 04/28/24 08:29 Vitals Last Vital Signs Temp 97.4 F L 05/02/24 11:55 Pulse 65 05/02/24 11:55 Resp 18 05/02/24 11:55 BP 188/77 05/02/24 11:55 Pulse Ox 100 05/02/24 11:55 O2 Del Method Nasal Cannula 05/02/24 11:55 O2 Flow Rate 2 05/02/24 08:59 FiO2 50 04/29/24 14:31 Discharge Plan Discharge Patient Disposition: Xfer SNF Condition: Stable Prescriptions: New heparin (porcine) 5,000 unit/mL (1 mL) cartridge 5,000 unit SUBCUT Q12H 30 Days Qty: 60 0RF Continued allopurinol 100 mg tablet 100 mg PO QPM calcium acetate 667 mg tablet 667 mg PO BID atorvastatin 40 mg Tablet 20 mg PO QPM carvedilol 25 mg Tablet 25 mg PO BID Rx Instructions: must administer with a meal/food nifedipine 60 mg Tablet Extended Release 24hr 120 mg PO QAM Changed hydralazine 25 mg Tablet 25 mg PO BID Qty: 30 0RF Discharge Orders: Discharge Order (Routine); Ordered 05/03/24 Ordered By: Carrie Johnson Other Ambulatory Orders: Complete Blood Count w/Auto (Q7D) Timeframe: 20240509 Location: Determined by Patient Ordered By: Carrie Elizabeth Complete Blood Count w/Auto (Q7D) Timeframe: 20240516 Location: Determined by Patient Ordered By: Carrie Elizabeth Complete Blood Count w/Auto (Q7D) Timeframe: 20240523 Location: Determined by Patient Ordered By: Carriegeovanny Carolinaa Referrals: [facility] [Outside] Humera Myaen MD [Primary Care Provider] - Maurisio Miller DO [Physician] - 1 week (hernia) Nika Donald MD [Physician] - 05/15/24 9:30 am () Discharge Diet: Cardiac Discharge Activity: Limit activity as instructed Patient Instructions: Prednisone (By mouth), Heparin (By injection), Levofloxacin (By mouth) (Levaquin, Levaquin Leva-zayra), Dialysis Nutrition Plan (DC), Acute Wound Care (DC), Hemodialysis (DC), Post Anesthesia Care, Pain Management Activity Restrictions/Additional Instructions: Weightbearing as tolerated. You may shower, but do not submerge your hip in water. Ice to left hip. Maintain dressings until they come off on their own or at least 2 weeks have passed. Discharge Attestations Time Spent in Discharge Care*: greater than 30 min Quality Metrics Clinical Quality Measures [ No reported AMI, CVA or VTE this stay] Coding Level of Care Code Acute Code for Chg Fwd Diagnoses ESRD (end stage renal disease) N18.6 Fracture of hip, left, closed S72.002A Chronic gout [id number] Pleural effusion J90 Hypertensive urgency I16.0 Fall W19.XXXA Aspiration pneumonia J69.0 Acute hypoxic respiratory failure J96.01 UTI (urinary tract infection) N39.0
[2024-05-03] MEDS: budesonide 0.5 mg/2 mL Neb INHALATION (08:43)
[2024-05-03] MEDS: ipratropium-albuterol 3 mL Neb INHALATION (08:43)
--- NOTE | 2024-05-03 10:14 | P.PN_ITS ---
Subjective 2 Subjective: no new complaints Medications: Reviewed: Yes Vitals/I&O/Wt Last Vital Signs Temp 97.9 F 05/03/24 08:00 Pulse 74 05/03/24 08:43 Resp 18 05/03/24 08:43 BP 143/69 05/03/24 08:41 Pulse Ox 91 05/03/24 08:43 O2 Del Method Room Air 05/03/24 08:43 O2 Flow Rate 2 05/02/24 08:59 FiO2 50 04/29/24 14:31 05/02/24 05/03/24 05/03/24 22:59 06:59 14:59 Intake Total 50 / 460 480 / 480 Output Total 100 / 100 Balance 50 / 460 380 / 380 Weight last 48 hrs Weight 68.402 kg Weight 67.812 kg Physical Exam 2 Narrative: awake , alert HEENT SQS2 RRR per report Lungs clear per report No edema Urinary Catheter Management: Sepulveda: Cath Placed During This Visit: yes, but has since been removed by the nurse Reason for Continuing Indwelling Catheter: Decision to DC Catheter Date Urinary Catheter Removed: 04/27/24 Time Urinary Catheter Discontinued: 05:45 Data 05/02/24 04:37 05/02/24 04:37 Micro: Microbiology 04/29/24 08:46 Gram Stain - Final Sputum - Expectorated Sputum Sputum Culture - Final Escherichia coli Enterobacter aerogenes A&P Assessment and plan (1) ESRD (end stage renal disease): 84-year-old gentleman ESRD hypertension heart failure preserved EF with mild to moderate aortic stenosis. The patient is status post left hip fracture from a fall on 04-25-24. 1. ESRD- s/p HD yesterday , next HD in Am 2. HTN : Monitor 3. Anemia :JANIE with hD iron sat 15%, ferritin 2092- no iv iron 4. Heart failure preserved EF w/ ext edema and JAYDEN inhibitor. 5. Acute on chronic resp failure : on 60 % Fio2 , CTA shows mucus pligging right main stem bronchus and jeanette pleural effusions , compressive atelectasis 6. AMS ,hypotension --> transferred to ICU ,improved The patient was seen and examined using A/V equipment as a telehealth visit. The patient consented to hemodialysis and telehealth. Plan See above. Attestations 2 Medical Necessity Statement*: per medicine team Coding Level of Care Code Acute Code for Chg Fwd Diagnoses ESRD (end stage renal disease) N18.6
--- NOTE | 2024-05-03 11:01 | PC.SOCIAL ---
IMM Updated Updated pt on IMM. No questions voiced. Provided pt a copy. Initialed, dated, & timed copy in chart.
== END 2024-05-03 12:37 | disposition skilled nursing facility (03) | DRG 480 ==
LOC: ER 17:48 → MEDSURG 18:35 → ICU 04-28 16:43 → MEDSURG 04-29 16:18
PROVIDERS: Internal Medicine Nephrology; Specialist; Student in an Organized Health Care Education/Training Program; Admitting Provider Internal Medicine; Emergency Provider Family Medicine; PCP Family Medicine; Visit Provider Internal Medicine
PROC: 0QS736Z Reposition Left Upper Femur with Intramedullary Internal Fixation Device, Percutaneous Approach (ICD-10-PCS; CPT 27245; principal; 2024-04-26 15:30)
DX: S72.142A Displaced intertrochanteric fracture of left femur, initial encounter for closed fracture (principal); J69.0 Pneumonitis due to inhalation of food and vomit; N18.6 End stage renal disease; J96.22 Acute and chronic respiratory failure with hypercapnia; J96.21 Acute and chronic respiratory failure with hypoxia; J90 Pleural effusion, not elsewhere classified; I12.0 Hypertensive chronic kidney disease with stage 5 chronic kidney disease or end stage renal disease; N39.0 Urinary tract infection, site not specified; W18.30XA Fall on same level, unspecified, initial encounter; E78.5 Hyperlipidemia, unspecified; M1A.9XX0 Chronic gout, unspecified, without tophus (tophi); I16.0 Hypertensive urgency; Z66 Do not resuscitate; B96.20 Unspecified Escherichia coli [E. coli] as the cause of diseases classified elsewhere; D63.1 Anemia in chronic kidney disease; B95.4 Other streptococcus as the cause of diseases classified elsewhere; I95.9 Hypotension, unspecified; J44.9 Chronic obstructive pulmonary disease, unspecified; M25.512 Pain in left shoulder; I25.10 Atherosclerotic heart disease of native coronary artery without angina pectoris; Z11.52 Encounter for screening for COVID-19; Z86.11 Personal history of tuberculosis; I25.2 Old myocardial infarction; Z99.81 Dependence on supplemental oxygen; Z99.2 Dependence on renal dialysis; Z86.16 Personal history of COVID-19; Z87.891 Personal history of nicotine dependence; Z86.73 Personal history of transient ischemic attack (TIA), and cerebral infarction without residual deficits
CPT/HCPCS: 0241U; 36415; 71045; 71275; 73030; 73060; 73502; 74176; 76000; 80048; 80053; 80202; 81001; 82306; 82310; 82607; 82728; 82746; 82803; 83540; 83550; 83735; 83970; 84100; 84145; 84484; 84550; 85025; 85378; 86706; 86803; 87040; 87070; 87077; 87086; 87186; 87205; 87340; 87426; 90935; 92507; 92526; 92610; 93005; 94640; 94760; 96372; 96374; 96376; 97110; 97116; 97161; 97165; 97530; 97535; 99285; C1713; J0131; J0360; J0690; J1644; J2270; J2310; J2405; J2543; J2704; J2919; J3010; J3372; J3490; J7626; Q3014; Q5105

== ENCOUNTER 2024-05-19 16:35 | Emergency (ER) | payer OTHER, SELFPAY ==
[2024-05-19 16:44] VITALS: BP 110/49; PULSE 65; RESP 17; TEMP 36.9; O2SAT 98; BMI 20.9
[2024-05-19 17:23] LABS: Basophils % 0.3 %; Eosinophils # 0.1 10^3/uL (0.0-0.8); Eosinophils % 1.8 %; Hematocrit 24.8 % (37-53); Lymphocytes # 1.1 10^3/uL (0.8-4.8); Lymphocytes % 16.4 %; Mean Corpuscular Hemoglobin 29.7 pg (27-33); Mean Corpuscular Volume 95.8 fl (82-101); Mean Platelet Volume 10.6 fL (7.4-10.4); Monocytes # 0.8 10^3/uL (0.2-0.9); Monocytes % 11.3 %; Neutrophils # 4.77 10^3/uL (1.8-7.7); Neutrophils % 69.8 %; Nucleated Red Blood Cells % 0 %; Platelet Count 210 10^3/cmm (157-399); Red Blood Count 2.59 10^6/uL (3.85-5.65); Red Cell Distribution Width 17.9 % (12.1-15.1); White Blood Count 6.83 10^3/uL (3.29-11.43)
--- NOTE | 2024-05-19 17:28 | XRR_ITS ---
PROCEDURE INFORMATION: Exam: XR Chest Exam date and time: 05/19/2024 5:53 PM Age: 84 years old Clinical indication: Other: Weakness TECHNIQUE: Imaging protocol: Radiologic exam of the chest. Views: 1 view. COMPARISON: CT angio chest PE protcl [id number] 04/28/2024 1:08 PM FINDINGS: Lungs: Partial collapse/consolidation of the right middle and lower lobes. Left basilar atelectasis. Scattered calcified granulomas. Pleural spaces: Moderate right-sided loculated pleural effusion. Trace left pleural fluid. Heart/Mediastinum: Unremarkable. No cardiomegaly. Vasculature: Tortuous thoracic aorta with atherosclerotic calcifications. Bones/joints: Unremarkable. Other findings: Bilateral pleural-based calcifications. XR/XR chest 1V portable [id number] IMPRESSION: Moderate right and small left loculated pleural effusions with associated relaxation atelectasis. Superimposed infection difficult to exclude.
--- NOTE | 2024-05-19 17:29 | ED_ITS ---
HPI - Recheck/Abnormal Lab/Rx 2 General: Chief Complaint: Recheck/Abnormal Lab/Rx Stated Complaint: dialysis Reff ,low hemlogobin Time Seen by Provider: 05/19/24 17:07 Source: patient Mode of arrival: ambulatory Limitations: no limitations History of Present Illness: 84-year-old male who is currently on jayna lysis states that his dialysis clinic [place] his blood this morning and called him and told him he needed to come to the ER because he was anemic. Patient states that he has been feeling fine he has no medical complaints at this time he denies any blood in his stool. Related Data Home Medications Medication Instructions Recorded Confirmed allopurinol 100 mg tablet 100 mg PO QPM 10/08/20 04/25/24 calcium acetate 667 mg tablet 667 mg PO BID 10/08/20 04/25/24 atorvastatin 40 mg tablet 20 mg PO QPM 12/03/23 04/25/24 carvedilol 25 mg tablet 25 mg PO BID 12/03/23 04/25/24 nifedipine 60 mg tablet,extended 120 mg PO QAM 12/03/23 04/25/24 release 24 hr Previous Rx's Medication Instructions Recorded heparin (porcine) 5,000 unit/mL (1 5,000 unit SUBCUT Q12H 30 days #60 05/02/24 mL) injection cartridge mL hydralazine 25 mg tablet 25 mg PO BID #30 tabs 05/02/24 Allergies Allergy/AdvReac Type Severity Reaction Status Date / Time No Known Allergies Allergy Verified 03/28/23 12:15 Review of Systems 2 Const: Denies: fever(s), chills, body aches or change in appetite ENMT: Denies: throat pain or dental pain Card: Denies: chest pain Resp: Denies: dyspnea GI: Denies: abdominal pain, nausea, vomiting or diarrhea Musc: Denies: neck pain or back pain Skin/Breast: Denies: rash Neuro: Denies: headache(s) PFSH ED 2 PFSH: Medical History Acute exacerbation of CHF (congestive heart failure) NSTEMI (non-ST elevated myocardial infarction) Pleural effusion Elevated troponin ESRD (end stage renal disease) Hypertension Hyperlipidemia Abnormal stress test COVID-19 Chronic gout Vitamin D deficiency Vitamin B12 deficiency (dietary) anemia History of TIA (transient ischemic attack) Surgical History S/P hemodialysis catheter insertion History of left knee surgery History of right knee surgery Family History Denies family history of Anesthesia complication Bleeding disorder Social History Smoking and tobacco/nicotine status: former use of tobacco/nicotine Alcohol intake: never Substance/Drug Use: never Physical Exam 2 Const: COMMON NORMALS: no acute distress and patient oriented x3 HENMT: COMMON NORMALS: normocephalic and atraumatic HEAD & SCALP: n ormocephalic and atraumatic Eye: COMMON NORMALS: Equal, round and reactive pupils present and EOMs intact bilaterally PUPIL: Yes Equal, round and reactive pupils present Neck/C-Spine: COMMON NORMALS: full ROM and supple Chest: COMMONS NORMALS: normal inspection of the chest Resp: COMMON NORMALS: normal respiratory effort, No retractions, No use of accessory muscles and clear to auscultation bilaterally AUSCULTATION: clear to auscultation bilaterally Cardio: COMMON NORMALS: regular rate, regular rhythm and No murmurs present (Cardio) RATE: regular rate RHYTHM: regular rhythm Extremity: COMMON NORMALS: normal to inspection and full ROM Neuro: COMMON NORMALS: patient oriented x3, moves all extremities and no focal motor deficits Psych: COMMON NORMALS: mental status grossly normal, Normal thought process present and cooperative THOUGHT PROCESS: Normal thought process present Skin: COMMON NORMALS: no rashes or lesions noted and no wounds GENERAL SKIN EXAM: no rashes or lesions noted Course 2 Vital Signs: Vital signs: Vital Signs Temperature 98.5 F 05/19/24 16:44 Pulse Rate 65 05/19/24 16:44 Respiratory Rate 17 05/19/24 16:44 Blood Pressure 110/49 05/19/24 16:44 Pulse Oximetry 98 05/19/24 16:44 Oxygen Delivery Me thod Room Air 05/19/24 16:44 MDM - Recheck/Abnormal Lab/Rx Medical Decision Making Patient presents here after being sent here from the clinic for anemia patient hemoglobin here is 7.7 that is around his baseline he has chronic anemia likely from his dialysis he has no medical complaints does not require transfusion I informed Josie is a follow-up with his primary care doctor return if worsening Medical Records I reviewed the patient's medical records. Lab Data I reviewed the patient's lab results. 05/19/24 17:18 05/19/24 17:18 Laboratory Results WBC 6.83 10^3/uL (3.29-11.43) 05/19/24 17:18 RBC 2.59 10^6/uL (3.85-5.65) L 05/19/24 17:18 Hgb 7.70 g/dL (11.27-16.99) L 05/19/24 17:18 Hct 24.8 % (37-53) L 05/19/24 17:18 MCV 95.8 fl (82-101) 05/19/24 17:18 MCH 29.7 pg (27-33) 05/19/24 17:18 MCHC 31.0 g/dL (30-55) 05/19/24 17:18 RDW 17.9 % (12.1-15.1) H 05/19/24 17:18 Plt Count 210 10^3/cmm (157-399) 05/19/24 17:18 MPV 10.6 fL (7.4-10.4) H 05/19/24 17:18 Neut % (Auto) 69.8 % 05/19/24 17:18 Lymph % (Auto) 16.4 % 05/19/24 17:18 Mineral % (Auto) 11.3 % 05/19/24 17:18 Eos % (Auto) 1.8 % 05/19/24 17:18 Baso % (Auto) 0.3 % 05/19/24 17:18 Neut # (Auto) 4.77 10^3/uL (1.8-7.7) 05/19/24 17:18 Lymph # (Auto) 1.1 10^3/uL (0.8-4.8) 05/19/24 17:18 Mineral # (Auto) 0.8 10^3/uL (0.2-0.9) 05/19/24 17:18 Eos # (Auto) 0.1 10^3/uL (0.0-0.8) 05/19/24 17:18 Baso # (Auto) 0.0 10^3/uL (0.0-0.1) 05/19/24 17:18 Nucleated RBC % (auto) 0 % 05/19/24 17:18 Nucleated RBCs # 0.0 /100WBC 05/19/24 17:18 Sodium 137 mmol/L (136-145) 05/19/24 17:18 Potassium 3.0 mmol/L (3.5-5.1) L 05/19/24 17:18 Chloride 97 mmol/L (98-107) L 05/19/24 17:18 Carbon Dioxide 28 mmol/L (22-29) 05/19/24 17:18 Anion Gap 15.0 (5-19) 05/19/24 17:18 BUN 23 mg/dL (8-23) 05/19/24 17:18 Creatinine 4.4 mg/dL (0.7-1.2) H 05/19/24 17:18 GFR Calculation Not Reportable 05/19/24 17:18 Glucose 136 mg/dL (65-115) H 05/19/24 17:18 Calculated Osmolality 290 mOsm/kg (285-295) 05/19/24 17:18 Calcium 8.7 mg/dL (8.5-10.5) 05/19/24 17:18 Total Bilirubin 0.3 mg/dL (0.15-1.2) 05/19/24 17:18 AST 23 U/L (0-40) 05/19/24 17:18 ALT < 5 U/L (0-41) 05/19/24 17:18 Alkaline Phosphatase 140 U/L (40-130) H 05/19/24 17:18 Total Protein 6.1 g/dL (6.6-8.7) L 05/19/24 17:18 Albumin 3.2 g/dL (3.5-5.2) L 05/19/24 17:18 Globulin 2.9 g/dL (1.3-4.6) 05/19/24 17:18 XR interpretation done by ED provider, pending radiology final review ED provider radiology interpretation(s): Chest x-ray right pleural effusion seen on previous x-rays Discharge Plan Discharge Patient Disposition: Home Clinical Impression: Anemia, ESRD (end stage renal disease) Condition: Stable Prescriptions: No Action allopurinol 100 mg tablet 100 mg PO QPM calcium acetate 667 mg tablet 667 mg PO BID atorvastatin 40 mg Tablet 20 mg PO QPM carvedilol 25 mg Tablet 25 mg PO BID Rx Instructions: must administer with a meal/food nifedipine 60 mg Tablet Extended Release 24hr 120 mg PO QAM hydralazine 25 mg Tablet 25 mg PO BID Qty: 30 0RF heparin (porcine) 5,000 unit/mL (1 mL) cartridge 5,000 unit SUBCUT Q12H 30 Days Qty: 60 0RF Discharge Orders: Discharge ED (Routine); Ordered 05/19/24 Ordered By: Deepak Singh Referrals: Humera Mayen MD [Primary Care Provider] - 4-7 days Discharge Diet: Advance as tolerated Discharge Activity: Resume usual activity Patient Instructions: Anemia (ED) Coding Level of Care Code ED Emergency Room Technician for Eloy Pike
[2024-05-19 17:46] LABS: Alanine Aminotransferase < 5 U/L (0-41); Albumin Level 3.2 g/dL (3.5-5.2); Alkaline Phosphatase 140 U/L (40-130); Aspartate Amino Transferase 23 U/L (0-40); Blood Urea Nitrogen 23 mg/dL (8-23); Calcium 8.7 mg/dL (8.5-10.5); Carbon Dioxide 28 mmol/L (22-29); Chloride 97 mmol/L (98-107); Creatinine Clr Calc Pharmacy 12.9342; Globulin 2.9 g/dL (1.3-4.6); Glucose 136 mg/dL (65-115); Osmolality Calculated 290 mOsm/kg (285-295); Sodium 137 mmol/L (136-145); Total Bilirubin 0.3 mg/dL (0.15-1.2); Total Protein 6.1 g/dL (6.6-8.7)
[2024-05-19] MEDS: potassium chloride ER 20 mEq Tablet 60 MEQ PO (18:05)
[2024-05-19 18:14] VITALS: BP 114/49; PULSE 61; O2SAT 98
[2024-05-19 18:16] VITALS: BP 114/79; PULSE 61; O2SAT 99
== END 2024-05-19 18:33 | disposition home or self-care (01) ==
PROVIDERS: Emergency Provider Emergency Medicine; PCP Family Medicine
DX: D64.9 Anemia, unspecified (principal); N18.6 End stage renal disease; Z99.2 Dependence on renal dialysis; I10 Essential (primary) hypertension; E78.5 Hyperlipidemia, unspecified; Z86.73 Personal history of transient ischemic attack (TIA), and cerebral infarction without residual deficits; Z87.891 Personal history of nicotine dependence
CPT/HCPCS: 36415; 71045; 80053; 85025; 99284

== ENCOUNTER 2024-05-27 09:43 | Emergency (ER) | payer OTHER, SELFPAY ==
[2024-05-27 10:06] VITALS: BP 145/59; PULSE 78; RESP 20; TEMP 36.4; O2SAT 93; BMI 20.9
--- NOTE | 2024-05-27 10:08 | W.ED.GENADLT ---
HPI - General Adult General: Chief complaint: Recheck/Abnormal Lab/Rx Stated complaint: sent from dr office based on labs Time Seen by Provider: 05/27/24 10:04 Source: patient Mode of arrival: ambulatory Limitations: no limitations History of Present Illness: 84-year-old male history of end-stage renal disease is on dialysis has a history of chronic anemia as well. He states the dialysis clinic checked his hemoglobin is 6.8 and sent him up here for transfusion he has no medical complaints denies any blood in the stool states he has been feeling fine he has no increased weakness. Associated symptoms: Deny chest pain, dyspnea, headache(s), nausea, rash or vomiting Related Data Home Medications Medication Instructions Recorded Confirmed allopurinol 100 mg tablet 100 mg PO QPM 10/08/20 05/27/24 calcium acetate 667 mg tablet 667 mg PO BID 10/08/20 05/27/24 atorvastatin 40 mg tablet 20 mg PO QPM 12/03/23 05/27/24 carvedilol 25 mg tablet 25 mg PO BID 12/03/23 05/27/24 nifedipine 60 mg tablet,extended 120 mg PO QAM 12/03/23 05/27/24 release 24 hr hydralazine 25 mg tablet 25 mg PO BID PRN bp over 170 05/27/24 05/27/24 Allergies Allergy/AdvReac Type Severity Reaction Status Date / Time No Known Allergies Allergy Verified 05/27/24 10:14 Review of Systems Const: Denies: fever(s), chills, body aches or change in appetite ENMT: Denies: throat pain or dental pain Card: Denies: chest pain Resp: Denies: dyspnea GI: Denies: abdominal pain, nausea, vomiting or diarrhea Musc: Denies: neck pain or back pain Skin/Breast: Denies: rash Neuro: Denies: headache(s) PFSH ED PFSH: Medical History Acute exacerbation of CHF (congestive heart failure) NSTEMI (non-ST elevated myocardial infarction) Pleural effusion Elevated troponin ESRD (end stage renal disease) Hypertension Hyperlipidemia Abnormal stress test COVID-19 Chronic gout Vitamin D deficiency Vitamin B12 deficiency (dietary) anemia History of TIA (transient ischemic attack) Surgical History S/P hemodialysis catheter insertion History of left knee surgery History of right knee surgery Family History Denies family history of Anesthesia complication Bleeding disorder Social History Smoking and tobacco/nicotine status: former use of tobacco/nicotine Alcohol intake: never Substance/Drug Use: never Physical Exam Const: COMMON NORMALS: no acute distress, patient oriented x3 and healthy appearing HENMT: COMMON NORMALS: normocephalic and atraumatic HEAD & SCALP: normocephalic and atraumatic Eye: COMMON NORMALS: conjunctivae normal CONJUNCTIVA: Yes conjunctivae normal Neck/C-Spine: COMMON NORMALS: full ROM and supple Chest: COMMONS NORMALS: normal inspection of the chest Resp: COMMON NORMALS: normal respiratory effort Cardio: COMMON NORMALS: regular rate RATE: regular rate Extremity: COMMON NORMALS: normal to inspection and full ROM Neuro: COMMON NORMALS: patient oriented x3, moves all extremities and no focal motor deficits Psych: COMMON NORMALS: mental status grossly normal, Normal thought process present and cooperative THOUGHT PROCESS: Normal thought process present Skin: COMMON NORMALS: no rashes or lesions noted and no wounds GENERAL SKIN EXAM: no rashes or lesions noted Course Vital Signs: Vital signs: Vital Signs Temperature 97.5 F L 05/27/24 10:06 Pulse Rate 78 05/27/24 10:06 Respiratory Rate 20 H 05/27/24 10:06 Blood Pressure 145/59 05/27/24 10:06 Pulse Oximetry 93 05/27/24 10:06 Oxygen Delivery Me thod Room Air 05/27/24 10:06 [facility] - General Adult Medical Decision Making Patient presents here with concerns for anemia his hemoglobin here is 8.1 actually went up from last month time he is no medical complaints does not require transfusion is follow-up with PCP return if worsening. Medical Records I reviewed the patient's medical records. Lab Data I reviewed the patient's lab results. 05/27/24 10:23 05/27/24 10:23 Laboratory Results WBC 5.38 10^3/uL (3.29-11.43) 05/27/24 10:23 RBC 2.72 10^6/uL (3.85-5.65) L 05/27/24 10:23 Hgb 8.10 g/dL (11.27-16.99) L 05/27/24 10:23 Hct 25.5 % (37-53) L 05/27/24 10:23 MCV 93.8 fl (82-101) 05/27/24 10:23 MCH 29.8 pg (27-33) 05/27/24 10:23 MCHC 31.8 g/dL (30-55) 05/27/24 10:23 RDW 17.1 % (12.1-15.1) H 05/27/24 10:23 Plt Count 239 10^3/cmm (157-399) 05/27/24 10:23 MPV 9.9 fL (7.4-10.4) 05/27/24 10:23 Neut % (Auto) 63.4 % 05/27/24 10:23 Lymph % (Auto) 19.7 % 05/27/24 10:23 [place] % (Auto) 13.6 % 05/27/24 10:23 Eos % (Auto) 2.2 % 05/27/24 10:23 Baso % (Auto) 0.7 % 05/27/24 10:23 Neut # (Auto) 3.41 10^3/uL (1.8-7.7) 05/27/24 10:23 Lymph # (Auto) 1.1 10^3/uL (0.8-4.8) 05/27/24 10:23 [place] # (Auto) 0.7 10^3/uL (0.2-0.9) 05/27/24 10:23 Eos # (Auto) 0.1 10^3/uL (0.0-0.8) 05/27/24 10:23 Baso # (Auto) 0.0 10^3/uL (0.0-0.1) 05/27/24 10:23 Nucleated RBC % (auto) 0 % 05/27/24 10:23 Nucleated RBCs # 0.0 /100WBC 05/27/24 10:23 Sodium 135 mmol/L (136-145) L 05/27/24 10:23 Potassium 3.4 mmol/L (3.5-5.1) L 05/27/24 10:23 Chloride 94 mmol/L (98-107) L 05/27/24 10:23 Carbon Dioxide 33 mmol/L (22-29) H 05/27/24 10:23 Anion Gap 11.4 (5-19) 05/27/24 10:23 BUN 9 mg/dL (8-23) 05/27/24 10:23 Creatinine 2.0 mg/dL (0.7-1.2) H 05/27/24 10:23 GFR Calculation Not Reportable 05/27/24 10:23 Glucose 100 mg/dL (65-115) 05/27/24 10:23 Calculated Osmolality 279 mOsm/kg (285-295) L 05/27/24 10:23 Calcium 8.9 mg/dL (8.5-10.5) 05/27/24 10:23 Blood Type Cancelled 05/27/24 10:23 Rho(D) Type Cancelled 05/27/24 10:23 Antibody Screen Cancelled 05/27/24 10:23 Crossmatch See Detail 05/27/24 10:23 No radiology studies performed this visit Discharge Plan Discharge Patient Disposition: Home Clinical Impression: Anemia Condition: Stable Prescriptions: No Action allopurinol 100 mg tablet 100 mg PO QPM calcium acetate 667 mg tablet 667 mg PO BID atorvastatin 40 mg Tablet 20 mg PO QPM carvedilol 25 mg Tablet 25 mg PO BID Rx Instructions: must administer with a meal/food nifedipine 60 mg Tablet Extended Release 24hr 120 mg PO QAM hydralazine 25 mg tablet 25 mg PO BID PRN (Reason: bp over 170) Discharge Orders: Discharge ED (Routine); Ordered 05/27/24 Ordered By: Deepak Singh Referrals: Humera Mayen MD [Primary Care Provider] - Discharge Diet: Advance as tolerated Discharge Activity: Resume usual activity Patient Instructions: Anemia (ED) Coding Level of Care Code ED Route Sales Specialist for Eloy Pike
[2024-05-27 10:30] LABS: Basophils % 0.7 %; Eosinophils # 0.1 10^3/uL (0.0-0.8); Eosinophils % 2.2 %; Hematocrit 25.5 % (37-53); Lymphocytes # 1.1 10^3/uL (0.8-4.8); Lymphocytes % 19.7 %; Mean Corpuscular HGB Conc 31.8 g/dL (30-55); Mean Corpuscular Hemoglobin 29.8 pg (27-33); Mean Corpuscular Volume 93.8 fl (82-101); Mean Platelet Volume 9.9 fL (7.4-10.4); Monocytes # 0.7 10^3/uL (0.2-0.9); Monocytes % 13.6 %; Neutrophils # 3.41 10^3/uL (1.8-7.7); Neutrophils % 63.4 %; Nucleated Red Blood Cells % 0 %; Platelet Count 239 10^3/cmm (157-399); Red Blood Count 2.72 10^6/uL (3.85-5.65); Red Cell Distribution Width 17.1 % (12.1-15.1); White Blood Count 5.38 10^3/uL (3.29-11.43)
[2024-05-27 10:48] LABS: Anion Gap 11.4 (5-19); Blood Urea Nitrogen 9 mg/dL (8-23); Calcium 8.9 mg/dL (8.5-10.5); Carbon Dioxide 33 mmol/L (22-29); Chloride 94 mmol/L (98-107); Creatinine Clr Calc Pharmacy 28.5247; Glucose 100 mg/dL (65-115); Osmolality Calculated 279 mOsm/kg (285-295); Potassium 3.4 mmol/L (3.5-5.1); Sodium 135 mmol/L (136-145)
--- NOTE | 2024-05-27 10:53 | PC.PHAR ---
[facility]. [facility] so I verified with current pt [facility].
[2024-05-27 11:12] VITALS: BP 140/60; PULSE 80; RESP 15; O2SAT 97
== END 2024-05-27 11:14 | disposition home or self-care (01) ==
PROVIDERS: Emergency Provider Emergency Medicine; PCP Family Medicine
DX: D64.9 Anemia, unspecified (principal); Z87.891 Personal history of nicotine dependence; Z86.73 Personal history of transient ischemic attack (TIA), and cerebral infarction without residual deficits; I12.0 Hypertensive chronic kidney disease with stage 5 chronic kidney disease or end stage renal disease; N18.6 End stage renal disease; Z99.2 Dependence on renal dialysis
CPT/HCPCS: 36415; 80048; 85025; 99283

== ENCOUNTER 2024-06-12 17:49 | Emergency (ER) | payer OTHER, SELFPAY ==
[2024-06-12 17:59] VITALS: BP 128/49; PULSE 69; RESP 18; TEMP 36.7; O2SAT 97
--- NOTE | 2024-06-12 18:09 | CTR_ITS ---
PROCEDURE INFORMATION: Exam: CT Head Without Contrast Exam date and time: 06/12/2024 6:09 PM Age: 84 years old Clinical indication: Stroke-like symptoms; Generalized weakness; Additional info: Symptoms of acute stroke TECHNIQUE: Imaging protocol: Computed tomography of the head without contrast. Radiation optimization: All CT scans at this facility use at least one of these dose optimization techniques: automated exposure control; mA and/or kV adjustment per patient size (includes targeted exams where dose is matched to clinical indication); or iterative reconstruction. Other technique: STROKE PROTOCOL was implemented. COMPARISON: CT head wo con* [id number] 03/28/2023 12:15 PM RADIATION DOSE METRICS: Total DLP (mGy-cm): 1227.28 FINDINGS: Brain: No hemorrhage. No edema. Punctate old lacunar infarcts noted in the basal ganglia. Moderate diffuse cerebral atrophy and mild sequela of chronic small vessel ischemic disease. No mass effect. Cerebral ventricles: No ventriculomegaly. Paranasal sinuses: Visualized sinuses are unremarkable. No fluid levels. Mastoid air cells: Visualized mastoid air cells are well aerated. Bones: Unremarkable. No acute fracture. Soft tissues: Unremarkable. CT/CT head thrombolytic [id number] IMPRESSION: No acute intracranial abnormality. ASSESSMENT: ASPECTS ([place] Stroke Program Early CT Score) is 10.
[2024-06-12 18:10] VITALS: BP 133/56; PULSE 71; O2SAT 94
--- NOTE | 2024-06-12 18:27 | ECG_ITS ---
[facility] Date: 2024-06-12 Pat Name: Fermin Patel Department: Room: Gender: Male Staff Training And Development Manager: : 1940 Requested By: Landen Palacios Order Number: [id number] Moraima MD: Jovita Infante M.D. Measurements Intervals [place] Rate: 60 P: 21 NH: 175 QRS: 52 QRSD: 150 T: 35 QT: 450 QTc: 452 Interpretive Statements SINUS RHYTHM INTRAVENTRICULAR CONDUCTION DELAY [130+ ms QRS DURATION] Compared to ECG 04/28/2024 19:56:35 No significant changes Electronically Signed On 06-13-2024 17:47:34 BARRATTE OPERATOR by Jovita Infante M.D. [email or web address]
[2024-06-12 18:32] LABS: Glucose Point of Care 89 mg/dL (70-110)
--- NOTE | 2024-06-12 18:37 | ED_ITS ---
HPI - Neuro Symptoms/Deficit 2 General: Chief Complaint: Neuro Symptoms/Deficit Stated Complaint: Possible Stroke Time Seen by Provider: 06/12/24 18:08 History of Present Illness: 84-year-old male presents to the emergen cy room with complaint of strokelike symptoms with 45 minutes prior to arrival. Patient previously had has a stroke. He reports he had difficulty with speech. His symptoms lasted about 20 to 30 minutes and completely resolved. He states he has no symptoms at this time. Patient awake alert and oriented. Associated symptoms: Deny chest pain Related Data Home Medications Medication Instructions Recorded Confirmed allopurinol 100 mg tablet 100 mg PO QPM 10/08/20 05/27/24 calcium acetate 667 mg tablet 667 mg PO BID 10/08/20 05/27/24 carvedilol 25 mg tablet 25 mg PO BID 12/03/23 05/27/24 nifedipine 60 mg tablet,extended 120 mg PO QAM 12/03/23 05/27/24 release 24 hr hydralazine 25 mg tablet 25 mg PO BID PRN bp over 170 05/27/24 05/27/24 Previous Rx's Medication Instructions Recorded aspirin 81 mg tablet,delayed 81 mg PO DAILY #30 tabs 06/12/24 release atorvastatin 40 mg tablet 40 mg PO DAILY #30 tabs 06/12/24 clopidogrel 75 mg tablet 75 mg PO DAILY #30 tabs 06/12/24 Allergies Allergy/AdvReac Type Severity Reaction Status Date / Time No Known Allergies Allergy Verified 05/27/24 10:14 Review of Systems 2 Const: Denies: fever(s) or chills Card: Denies: chest pain Resp: Denies: dyspnea GI: Denies: abdominal pain : Denies: dysuria, urinary frequency or urinary urgency Musc: Denies: neck pain or back pain Skin/Breast: Denies: rash PFSH ED 2 PFSH: Medical History Acute exacerbation of CHF (congestive heart failure) NSTEMI (non-ST elevated myocardial infarction) Pleural effusion Elevated troponin ESRD (end stage renal disease) Hypertension Hyperlipidemia Abnormal stress test COVID-19 Chronic gout Vitamin D deficiency Vitamin B12 deficiency (dietary) anemia History of TIA (transient ischemic attack) Surgical History S/P hemodialysis catheter insertion History of left knee surgery History of right knee surgery Family History Denies family history of Anesthesia complication Bleeding disorder Social History Smoking and tobacco/nicotine status: former use of tobacco/nicotine Alcohol intake: never Substance/Drug Use: never NIH stroke score 2 NIHSS: Level Of Consciousness - 1a: 0 Level Of Consciousness Questions - 1b: Both Correct Level Of Consciousness Commands - 1c: Both Correct Best Gaze - 2: Normal Visual Muse - 3: No Visual Loss Facial Palsy - 4: N ormal Motor Arm Right - 5: No Drift Motor Arm Left - 5: No Drift Motor Leg Right - 6: No Drift Motor Leg Left - 6: No Drift Limb Ataxia - 7: A bsent Sensory - 8: Normal Best Language - 9: No Aphasia Dysarthia - 10: Normal Extinction And Inattention - 11: 0 Score: Total Score: 0 Physical Exam 2 Const: COMMON NORMALS: no acute distress GENERAL APPEARANCE: cooperative and comfortable ORIENTATION/CONSCIOUSNESS: Yes awake, Yes oriented to person, Yes oriented to place and Yes oriented to time HENMT: COMMON NORMALS: normocephalic, atraumatic and hearing grossly normal bilaterally HEAD & SCALP: normocephalic and atraumatic Resp: COMMON NORMALS: normal respiratory effort, No retractions, No use of accessory muscles and clear to auscultation bilaterally AUSCULTATION: clear to auscultation bilaterally Cardio: COMMON NORMALS: regular rate, regular rhythm and No murmurs present (Cardio) RATE: regular rate RHYTHM: regular rhythm GI: COMMON NORMALS: Soft to palpation and No hepatosplenomegaly present A USCULTATION: Yes normoactive bowel sounds PALPATION: Yes Soft to palpation, No Tenderness to palpation present (GI), No Guarding due to palpation present (GI) and Yes No hepatosplenomegaly present Extremity: COMMON NORMALS: normal to inspection, capillary refill normal, no clubbing, cyanosis or edema, no calf tenderness and no pedal edema Neuro: SENSORIUM/ORIENTATION: Yes oriented to person, Yes oriented to place and Yes oriented to time Skin: COMMON NORMALS: no rashes or lesions noted GENERAL SKIN EXAM: no rashes or lesions noted Course 2 Vital Signs: Vital signs: Vital Signs Temperature 98.1 F 06/12/24 17:59 Pulse Rate 70 06/12/24 20:36 Respiratory Rate 16 06/12/24 20:36 Blood Pressure 143/64 06/12/24 20:36 Pulse Oximetry 94 06/12/24 20:36 Oxygen Delivery Me thod Room Air 06/12/24 19:04 MDM - Neuro Symptoms/Deficit Medical Decision Making No significant findings on CT or exam. We are about to discharge patient he states he also had pain in his left hip. He recently had a hip surgery. He states after he got back from [place] he slid out of his chair he never really fell but after sliding out of the chair he experienced increased pain but at the same time he had been walking without his walker more frequently. He never had any specific fall. He is able to bear weight. X-ray was done of the hip no acute fracture will discharge patient home he does not appear to have had an acute CVA from his description he may have had a TIA. He is currently on low-dose atorvastatin will increase him to atorvastatin 40 mg daily add aspirin 81 mg daily clopidogrel 75 mg daily set him up for outpatient follow-up with neurology and follow-up with his doctor within the next week 1 to 2 weeks Medical Records I reviewed the patient's medical records. Lab Data I reviewed the patient's lab results. 06/12/24 18:25 06/12/24 18:[address] 06/12/24 18:09 IMPRESSION: No acute intracranial abnormality. ASSESSMENT: ASPECTS ([place] Stroke Program Early CT Score) is 10. ADDENDUM: 06/12/241839 Findings were discussed with LANDEN PINO at 06/12/2024 6:38 PM IRRIGATION SUPERVISOR. Hip/Pelvis X-Ray 06/12/24 20:09 IMPRESSION: No acute findings. Laboratory Results WBC 7.28 10^3/uL (3.29-11.43) 06/12/24 18: RBC 3.32 10^6/uL (3.85-5.65) L 06/12/24 18:25 Hgb 9.80 g/dL (11.27-16.99) L 06/12/24 18: Hct 32.5 % (37-53) L 06/12/24 18:25 MCV 97.9 fl (82-101) 06/12/24 18:25 MCH 29.5 pg (27-33) 06/12/24 18:25 MCHC 30.2 g/dL (30-55) 06/12/24 18:25 RDW 17.5 % (12.1-15.1) H 06/12/24 18:25 Plt Count 205 10^3/cmm (157-399) 06/12/24 18:25 MPV 10.1 fL (7.4-10.4) 06/12/24 18:25 Neut % (Auto) 61.6 % 06/12/24 18:25 Lymph % (Auto) 25.4 % 06/12/24 18:25 [place] % (Auto) 10.7 % 06/12/24 18:25 Eos % (Auto) 1.5 % 06/12/24 18:25 Baso % (Auto) 0.5 % 06/12/24 18:25 Neut # (Auto) 4.48 10^3/uL (1.8-7.7) 06/12/24 18:25 Lymph # (Auto) 1.9 10^3/uL (0.8-4.8) 06/12/24 18:25 [place] # (Auto) 0.8 10^3/uL (0.2-0.9) 06/12/24 18:25 Eos # (Auto) 0.1 10^3/uL (0.0-0.8) 06/12/24 18:25 Baso # (Auto) 0.0 10^3/uL (0.0-0.1) 06/12/24 18:25 Nucleated RBC % (auto) 0 % 06/12/24 18:25 Nucleated RBCs # 0.0 /100WBC 06/12/24 18:25 PT 14.00 SECONDS (12.1-14.9) 06/12/24 18:25 INR 1.05 (0.8-1.2) 06/12/24 18:25 APTT 37.8 SECONDS (23.9-36.7) H 06/12/24 18:25 Sodium 136 mmol/L (136-145) 06/12/24 18:25 Potassium 4.2 mmol/L (3.5-5.1) 06/12/24 18:25 Chloride 95 mmol/L (98-107) L 06/12/24 18:25 Carbon Dioxide 31 mmol/L (22-29) H 06/12/24 18:25 Anion Gap 14.2 (5-19) 06/12/24 18:25 BUN 10 mg/dL (8-23) 06/12/24 18:25 Creatinine 3.0 mg/dL (0.7-1.2) H 06/12/24 18:25 GFR Calculation Not Reportable 06/12/24 18:25 Glucose 89 mg/dL (65-115) 06/12/24 18:25 POC Glucose 89 mg/dL (70-110) 06/12/24 18:26 Calculated Osmolality 281 mOsm/kg (285-295) L 06/12/24 18:25 Calcium 9.2 mg/dL (8.5-10.5) 06/12/24 18:25 Total Bilirubin 0.4 mg/dL (0.15-1.2) 06/12/24 18:25 AST 18 U/L (0-40) 06/12/24 18:25 ALT 6 U/L (0-41) 06/12/24 18:25 Alkaline Phosphatase 147 U/L (40-130) H 06/12/24 18:25 Total Protein 6.7 g/dL (6.6-8.7) 06/12/24 18:25 Albumin 3.4 g/dL (3.5-5.2) L 06/12/24 18:25 Globulin 3.3 g/dL (1.3-4.6) 06/12/24 18:25 Urine Color Yellow (Yellow) 06/12/24 19:22 Urine Appearance Clear (CLEAR) 06/12/24 19:22 Urine pH >=9.0 (5-7) A 06/12/24: Ur Specific [place] 1.010 (1.005-1.030) 06/12/24 19: Urine Protein 3+ (Negative) A 06/12/24 19:22 Urine Glucose (UA) Negative (Normal) 06/12/24 19:22 Urine Ketones Negative (Negative) 06/12/24 19:22 Urine Blood Negative (Negative) 06/12/24 19: Urine Nitrate Negative (Negative) 06/12/24 19:22 Urine Bilirubin Negative (Negative) 06/12/24 19:22 Urine Urobilinogen 0.2 mg/dL (Negative) 06/12/24 19:22 Ur Leukocyte Esterase Negative (Negative) 06/12/24 19:22 Urine RBC 0-2 /hpf (0-2) 06/12/24 19:22 Urine WBC 11-20 /hpf (0-5) H 06/12/24 19:22 Ur Squamous Epith Cells 11-20 /hpf (0-5) 06/12/24 19:22 Amorphous Sediment Not Reportable 06/12/24 19:22 Urine Bacteria None seen /hpf (NONE) 06/12/24 19:22 Hyaline Casts 6.17 /lpf 06/12/24 19:22 Urine Opiates Screen Negative ng/mL (Negative) 06/12/24 19:22 Ur Barbiturates Screen Negative ng/mL (Negative) 06/12/24 19:22 Ur Phencyclidine Scrn Negative ng/mL (Negative) 06/12/24 19:22 Ur Amphetamines Screen Negative ng/mL (Negative) 06/12/24 19:22 U Benzodiazepines Scrn Negative ng/mL (Negative) 06/12/24 19:22 Urine Cocaine Screen Negative ng/mL (Negative) 06/12/24 19:22 U Marijuana (THC) Screen Negative ng/mL (Negative) 06/12/24 19:22 All radiology interpretation(s) finalized by discharge Discharge Plan Discharge Patient Disposition: Home Clinical Impression: Transient cerebral ischemia, S/P total left hip arthroplasty Condition: Stable Prescriptions: New aspirin 81 mg tablet,delayed release (DR/EC) 81 mg PO DAILY Qty: 30 0RF atorvastatin 40 mg tablet 40 mg PO DAILY Qty: 30 0RF clopidogrel 75 mg tablet 75 mg PO DAILY Qty: 30 0RF Discontinued atorvastatin 40 mg Tablet 20 mg PO QPM No Action allopurinol 100 mg tablet 100 mg PO QPM calcium acetate 667 mg tablet 667 mg PO BID carvedilol 25 mg Tablet 25 mg PO BID Rx Instructions: must administer with a meal/food nifedipine 60 mg Tablet Extended Release 24hr 120 mg PO QAM hydralazine 25 mg tablet 25 mg PO BID PRN (Reason: bp over 170) Discharge Orders: Discharge ED (Routine); Ordered 06/12/24 Ordered By: Landen Pino Referrals: Humera Mayen MD [Primary Care Provider] - Discharge Diet: Usual diet Discharge Activity: Increase activity as tolerated Patient Instructions: Opioid Safety, Pain Management Activity Restrictions/Additional Instructions: [facility]. It is very important that you follow up as instructed or that you return to the Emergency Department should you have concerns or if your condition changes or worsens in any way. You are seen in the emergency room for a TIA (transient ischemic attack). CT of your head was negative on exam you had no residual symptoms that you have described previously. Recommend increasing your atorvastatin to 40 mg daily. Additionally aspirin 81 mg daily and clopidogrel 75 mg daily. Follow-up with your primary care doctor within the week. Will also set you up for a follow-up with neurology. Coding Level of Care Code ED Doula for Eloy Pike
[2024-06-12 18:40] LABS: Basophils % 0.5 %; Eosinophils # 0.1 10^3/uL (0.0-0.8); Eosinophils % 1.5 %; Hematocrit 32.5 % (37-53); Lymphocytes # 1.9 10^3/uL (0.8-4.8); Lymphocytes % 25.4 %; Mean Corpuscular HGB Conc 30.2 g/dL (30-55); Mean Corpuscular Hemoglobin 29.5 pg (27-33); Mean Corpuscular Volume 97.9 fl (82-101); Mean Platelet Volume 10.1 fL (7.4-10.4); Monocytes # 0.8 10^3/uL (0.2-0.9); Monocytes % 10.7 %; Neutrophils # 4.48 10^3/uL (1.8-7.7); Neutrophils % 61.6 %; Nucleated Red Blood Cells % 0 %; Platelet Count 205 10^3/cmm (157-399); Red Blood Count 3.32 10^6/uL (3.85-5.65); Red Cell Distribution Width 17.5 % (12.1-15.1); White Blood Count 7.28 10^3/uL (3.29-11.43)
[2024-06-12 18:50] LABS: INR 1.05 (0.8-1.2)
[2024-06-12 18:51] LABS: Partial Thromboplastin Time 37.8 SECONDS (23.9-36.7)
[2024-06-12 18:54] LABS: Alanine Aminotransferase 6 U/L (0-41); Albumin Level 3.4 g/dL (3.5-5.2); Alkaline Phosphatase 147 U/L (40-130); Anion Gap 14.2 (5-19); Aspartate Amino Transferase 18 U/L (0-40); Blood Urea Nitrogen 10 mg/dL (8-23); Calcium 9.2 mg/dL (8.5-10.5); Carbon Dioxide 31 mmol/L (22-29); Chloride 95 mmol/L (98-107); Globulin 3.3 g/dL (1.3-4.6); Glucose 89 mg/dL (65-115); Osmolality Calculated 281 mOsm/kg (285-295); Potassium 4.2 mmol/L (3.5-5.1); Sodium 136 mmol/L (136-145); Total Bilirubin 0.4 mg/dL (0.15-1.2); Total Protein 6.7 g/dL (6.6-8.7)
[2024-06-12 19:04] VITALS: BP 145/57; PULSE 66; RESP 16; O2SAT 94
[2024-06-12 19:40] LABS: Bilirubin Urine Negative (Negative); Blood Urine Negative (Negative); Glucose Urine UA Negative (Normal); Ketones Urine Negative (Negative); Leukocyte Esterase Urine Negative (Negative); Nitrate Urine Negative (Negative); Protein Urine 3+ (Negative); Urine Appearance Clear (CLEAR); Urine Color Yellow (Yellow); Urobilinogen Urine 0.2 mg/dL (Negative); pH Urine >=9.0 (5-7)
[2024-06-12 19:45] LABS: Add Urine Microscopic? YES; Bacteria Urine None Seen /hpf; Hyaline Casts Urine 6.17 /lpf; RBC Urine 0-2 /hpf (0-2)
[2024-06-12 19:49] LABS: Amphetamines Screen Urine Negative (Negative); Barbiturates Screen Urine Negative (Negative); Benzodiazepines Screen Urine Negative (Negative); Cocaine Screen Urine Negative (Negative); Opiate Screen Urine Negative (Negative); PCP Screen Urine Negative (Negative); THC Screen Urine Negative (Negative)
--- NOTE | 2024-06-12 20:09 | XRR_ITS ---
PROCEDURE INFORMATION: Exam: XR Left Hip Exam date and time: 06/12/2024 8:12 PM Age: 84 years old Clinical indication: Hip pain; Left hip; Prior surgery; Surgery date: 6+ months; Surgery type: Lt hip TECHNIQUE: Imaging protocol: Radiologic exam of the left hip. Views: 2 or 3 views hip with pelvis when performed. COMPARISON: CT abdomen pelvis wo con [id number] 05/03/2024 6:14 AM FINDINGS: Bones/joints: Intact intramedullary nail in the left hip. No acute fracture. Soft tissues: Unremarkable. XR/XR hip LT 2-3V wo/w pel* [id number] IMPRESSION: No acute findings.
[2024-06-12 20:36] VITALS: BP 143/64; PULSE 70; RESP 16; O2SAT 94
== END 2024-06-12 20:38 | disposition home or self-care (01) ==
PROVIDERS: Emergency Provider Family Medicine; PCP Family Medicine
DX: G45.9 Transient cerebral ischemic attack, unspecified (principal); Z96.642 Presence of left artificial hip joint; Z87.891 Personal history of nicotine dependence; Z86.73 Personal history of transient ischemic attack (TIA), and cerebral infarction without residual deficits; I12.0 Hypertensive chronic kidney disease with stage 5 chronic kidney disease or end stage renal disease; N18.6 End stage renal disease; E78.5 Hyperlipidemia, unspecified
CPT/HCPCS: 36415; 36416; 70450; 73502; 80053; 80306; 81001; 82962; 85025; 85610; 85730; 93005; 99285

== ENCOUNTER 2024-08-21 04:16 | Emergency (ER) | payer OTHER, SELFPAY ==
[2024-08-21 04:21] VITALS: BP 129/72; PULSE 73; RESP 18; TEMP 36.1; O2SAT 95; BMI 20.9
[2024-08-21] MEDS: silver nitrate applicator 3 EACH TOPICAL (04:47)
[2024-08-21] MEDS: tranexamic acid 1,000 mg/10mL SDV 1000 MG IRRIGATION (04:47)
[2024-08-21 04:55] VITALS: BP 129/72; PULSE 64; O2SAT 95
--- NOTE | 2024-08-21 05:44 | W.ED.GENADLT ---
HPI - General Adult General: Chief complaint: General Medical Stated complaint: had a spot removed 08/14/24been bleeding on and off Time Seen by Provider: 08/21/24 04:26 History of Present Illness: 84-year-old gentleman with a skin incision at his left yarsanism. He says that he is supposed to have his sutures out today. It started bleeding last night, and has been bleeding on and off. The incision does not appear to have opened he says. No fever or other problems. Related Data Home Medications ?Medication ?Instructions ?Recorded ?Confirmed allopurinol 100 mg tablet 100 mg PO QPM 10/08/20 05/27/24 calcium acetate 667 mg tablet 667 mg PO BID 10/08/20 05/27/24 carvedilol 25 mg tablet 25 mg PO BID 12/03/23 05/27/24 nifedipine 60 mg tablet,extended 120 mg PO QAM 12/03/23 05/27/24 release 24 hr hydralazine 25 mg tablet 25 mg PO BID PRN bp over 170 05/27/24 05/27/24 Previous Rx's ?Medication ?Instructions ?Recorded aspirin 81 mg tablet,delayed 81 mg PO DAILY #30 tabs 06/12/24 release atorvastatin 40 mg tablet 40 mg PO DAILY #30 tabs 06/12/24 clopidogrel 75 mg tablet 75 mg PO DAILY #30 tabs 06/12/24 Allergies Allergy/AdvReac Type Severity Reaction Status Date / Time No Known Allergies Allergy Verified 08/21/24 04:26 [facility] ED PFSH: Medical History Acute exacerbation of CHF (congestive heart failure) NSTEMI (non-ST elevated myocardial infarction) Pleural effusion Elevated troponin ESRD (end stage renal disease) Hypertension Hyperlipidemia Abnormal stress test COVID-19 Chronic gout Vitamin D deficiency Vitamin B12 deficiency (dietary) anemia History of TIA (transient ischemic attack) Surgical History S/P hemodialysis catheter insertion History of left knee surgery History of right knee surgery Family History Denies family history of Anesthesia complication Bleeding disorder Social History Smoking and tobacco/nicotine status: former use of tobacco/nicotine Alcohol intake: never Substance/Drug Use: never Physical Exam Const: COMMON NORMALS: no acute distress GENERAL APPEARANCE: not ill appearing ORIENTATION/CONSCIOUSNESS: Yes awake, Yes oriented to person, Yes oriented to place and Yes oriented to time HENMT: COMMON NORMALS: normocephalic HEAD & SCALP: normocephalic Resp: COMMON NORMALS: normal respiratory effort and No use of accessory muscles Cardio: COMMON NORMALS: regular rate and regular rhythm RATE: regular rate RHYTHM: regular rhythm Neuro: SENSORIUM/ORIENTATION: Yes oriented to person, Yes oriented to place and Yes oriented to time Skin: NARRATIVE SKIN EXAM: Skin incision over the left yarsanism. He remains approximated. However, slow bleeding is apparent. Course Vital Signs: Vital signs: Vital Signs Temperature 97.0 F L 08/21/24 04:21 Pulse Rate 64 08/21/24 04:55 Respiratory Rate 18 08/21/24 04:21 Blood Pressure 129/72 08/21/24 04:55 Pulse Oximetry 95 08/21/24 04:55 Oxygen Delivery Me thod Room Air 08/21/24 04:21 MDM - General Adult Medical Decision Making Cauterization with silver nitrate. TXA soaked gauze in place. Hemorrhage has stopped. He will be allowed discharge to follow-up later today for wound check. He will keep bandage on until that time. He knows to return for repeated hemorrhage No radiology studies performed this visit Discharge Plan Discharge Patient Disposition: Home Clinical Impression: Postoperative bleeding from incision Condition: Stable Prescriptions: No Action allopurinol 100 mg tablet 100 mg PO QPM calcium acetate 667 mg tablet 667 mg PO BID carvedilol 25 mg Tablet 25 mg PO BID Rx Instructions: must administer with a meal/food nifedipine 60 mg Tablet Extended Release 24hr 120 mg PO QAM hydralazine 25 mg tablet 25 mg PO BID PRN (Reason: bp over 170) aspirin 81 mg tablet,delayed release (DR/EC) 81 mg PO DAILY Qty: 30 0RF atorvastatin 40 mg tablet 40 mg PO DAILY Qty: 30 0RF clopidogrel 75 mg tablet 75 mg PO DAILY Qty: 30 0RF Discharge Orders: Discharge ED (Routine); Ordered 08/21/24 Ordered By: Homero Abad Referrals: Humera Mayen MD [Primary Care Provider] - Patient Instructions: Postoperative Bleeding (ED), Opioid Safety, Pain Management Activity Restrictions/Additional Instructions: Leave your head bandaged until later this morning, sometime around 11 or 1130. Following this, you may uncover. Wash with soap and running water tomorrow but keep dry today. Return for repeated episodes of hemorrhage. Print Language: Croatian Coding Level of Care Code ED Regional Commercial Sales Manager for Eloy Pike
[2024-08-21 05:55] VITALS: BP 129/72; PULSE 62; O2SAT 95
== END 2024-08-21 05:50 | disposition home or self-care (01) ==
PROVIDERS: Emergency Provider Emergency Medicine; PCP Family Medicine
DX: L76.22 Postprocedural hemorrhage of skin and subcutaneous tissue following other procedure (principal); Z79.82 Long term (current) use of aspirin; Z87.891 Personal history of nicotine dependence; Z86.73 Personal history of transient ischemic attack (TIA), and cerebral infarction without residual deficits; E78.5 Hyperlipidemia, unspecified; I12.0 Hypertensive chronic kidney disease with stage 5 chronic kidney disease or end stage renal disease; N18.6 End stage renal disease
CPT/HCPCS: 99204; 99283; J9999

== ENCOUNTER 2024-08-25 14:26 | Emergency (ER) | payer OTHER, SELFPAY ==
[2024-08-25 14:36] VITALS: BP 155/65; PULSE 73; RESP 18; TEMP 36.8; O2SAT 94; BMI 20.9
--- NOTE | 2024-08-25 14:52 | PC.PHAR ---
Pt is [facility]. Pt does know his medications.
--- NOTE | 2024-08-25 15:03 | W.ED.GENADLT ---
HPI - General Adult General: Chief complaint: General Medical Stated complaint: bleeding stitches area Time Seen by Provider: 08/25/24 14:55 History of Present Illness: 84-year-old man who presents emergency room with recurrent bleeding from a wound on the left side of his face. He had a biopsy done. He has been seen here in the emergency room a couple times previously. Apparently they put some new stitches in the wound but it started bleeding again. He is not taking his blood thinners any longer. Related Data Home Medications ?Medication ?Instructions ?Recorded ?Confirmed allopurinol 100 mg tablet 100 mg PO QPM 10/08/20 08/25/24 calcium acetate 667 mg tablet 667 mg PO BID 10/08/20 08/25/24 carvedilol 25 mg tablet 25 mg PO BID 12/03/23 08/25/24 nifedipine 60 mg tablet,extended 120 mg PO QAM 12/03/23 08/25/24 release 24 hr hydralazine 25 mg tablet 25 mg PO QPM 05/27/24 08/25/24 atorvastatin 40 mg tablet 40 mg PO QPM 08/25/24 08/25/24 Allergies Allergy/AdvReac Type Severity Reaction Status Date / Time No Known Allergies Allergy Verified 08/23/24 13:06 Review of Systems Narrative: Constitutional symptoms: Negative except as documented in HPI. Skin symptoms: Negative except as documented in HPI. Eye symptoms: Negative except as documented in HPI. ENMT symptoms: Negative except as documented in HPI. Respiratory symptoms: Negative except as documented in HPI. Cardiovascular symptoms: Negative except as documented in HPI. Gastrointestinal symptoms: Negative except as documented in HPI. Genitourinary symptoms: Negative except as documented in HPI. Musculoskeletal symptoms: Negative except as documented in HPI. Neurologic symptoms: Negative except as documented in HPI. Psychiatric symptoms: Negative except as documented in HPI. Endocrine symptoms: Negative except as documented in HPI. [facility] ED PFSH: Medical History Acute exacerbation of CHF (congestive heart failure) NSTEMI (non-ST elevated myocardial infarction) Pleural effusion Elevated troponin ESRD (end stage renal disease) Hypertension Hyperlipidemia Abnormal stress test COVID-19 Chronic gout Vitamin D deficiency Vitamin B12 deficiency (dietary) anemia History of TIA (transient ischemic attack) Surgical History S/P hemodialysis catheter insertion History of left knee surgery History of right knee surgery Family History Denies family history of Anesthesia complication Bleeding disorder Social History Smoking and tobacco/nicotine status: never used tobacco/nicotine Alcohol intake: never Substance/Drug Use: never Physical Exam Narrative: EXAM NARRATIVE: General: Alert, no acute distress. Skin: warm and dry. There is wound on the left cheek. This has some stitches in it but seems to be oozing out of it. He is losing considerable amount of blood despite stitches. Head: Normocephalic Neck: Trachea midline Eye: Extraocular movements are intact. Ears, nose, mouth and throat: Oral mucosa moist Respiratory: Respirations are non-labored Musculoskeletal: Normal ROM Neurological: Alert and oriented, No focal neurological deficit observed. Psychiatric: Cooperative, appropriate mood & affect. Course Vital Signs: Vital signs: Vital Signs Temperature 98.2 F 08/25/24 14:36 Pulse Rate 70 08/25/24 17:00 Respiratory Rate 18 08/25/24 14:36 Blood Pressure 155/65 08/25/24 14:36 Pulse Oximetry 95 08/25/24 17:00 Oxygen Delivery Me thod Room Air 08/25/24 14:36 MDM - General Adult Medical Decision Making Lab review: This was reviewed and interpreted by myself emergency room physician. No new anemia. BUN/creatinine are stable at 36 and 4.4. Platelets are normal at 199. ENTERTAINMENT REPORTER has applied more stitches to the wound. Bleeding seems to be better controlled. Assessment and plan: Bleeding from wound - Discharged home - Discussed plan with patient. Answered any questions. - Evaluation and treatment of this problem were appropriate in the emergency setting. Lab Data 08/25/24 15:49 08/25/24 15:49 Laboratory Results WBC 7.44 10^3/uL (3.29-11.43) 08/25/24 15:49 RBC 3.31 10^6/uL (3.85-5.65) L 08/25/24 15:49 Hgb 9.40 g/dL (11.27-16.99) L 08/25/24 15:49 Hct 30.2 % (37-53) L 08/25/24 15:49 MCV 91.2 fl (82-101) 08/25/24 15:49 MCH 28.4 pg (27-33) 08/25/24 15:49 MCHC 31.1 g/dL (30-55) 08/25/24 15:49 RDW 15.4 % (12.1-15.1) H 08/25/24 15:49 Plt Count 199 10^3/cmm (157-399) 08/25/24 15:49 MPV 10.6 fL (7.4-10.4) H 08/25/24 15:49 Neut % (Auto) 58.6 % 08/25/24 15:49 Lymph % (Auto) 24.3 % 08/25/24 15:49 Hooker % (Auto) 14.1 % 08/25/24 15:49 Eos % (Auto) 2.0 % 08/25/24 15:49 Baso % (Auto) 0.7 % 08/25/24 15:49 Neut # (Auto) 4.36 10^3/uL (1.8-7.7) 08/25/24 15:49 Lymph # (Auto) 1.8 10^3/uL (0.8-4.8) 08/25/24 15:49 Hooker # (Auto) 1.1 10^3/uL (0.2-0.9) H 08/25/24 15:49 Eos # (Auto) 0.2 10^3/uL (0.0-0.8) 08/25/24 15:49 Baso # (Auto) 0.1 10^3/uL (0.0-0.1) 08/25/24 15:49 Nucleated RBC % (auto) 0 % 08/25/24 15:49 Nucleated RBCs # 0.0 /100WBC 08/25/24 15:49 PT 13.50 SECONDS (12.1-14.9) 08/25/24 15:49 INR 0.96 (0.8-1.2) 08/25/24 15:49 APTT 36.5 SECONDS (23.9-36.7) 08/25/24 15:49 Sodium 136 mmol/L (136-145) 08/25/24 15:49 Potassium 4.5 mmol/L (3.5-5.1) 08/25/24 15:49 Chloride 94 mmol/L (98-107) L 08/25/24 15:49 Carbon Dioxide 30 mmol/L (22-29) H 08/25/24 15:49 Anion Gap 16.5 (5-19) 08/25/24 15:49 BUN 36 mg/dL (8-23) H 08/25/24 15:49 Creatinine 4.4 mg/dL (0.7-1.2) H 08/25/24 15:49 GFR Calculation Not Reportable 08/25/24 15:49 Glucose 107 mg/dL (65-115) 08/25/24 15:49 Calculated Osmolality 291 mOsm/kg (285-295) 08/25/24 15:49 Calcium 9.0 mg/dL (8.5-10.5) 08/25/24 15:49 Total Bilirubin 0.3 mg/dL (0.15-1.2) 08/25/24 15:49 AST 23 U/L (0-40) 08/25/24 15:49 ALT 11 U/L (0-41) 08/25/24 15:49 Alkaline Phosphatase 110 U/L (40-130) 08/25/24 15:49 Total Protein 6.9 g/dL (6.6-8.7) 08/25/24 15:49 Albumin 3.7 g/dL (3.5-5.2) 08/25/24 15:49 Globulin 3.2 g/dL (1.3-4.6) 08/25/24 15:49 No radiology studies performed this visit Discharge Plan Discharge Patient Disposition: Home Clinical Impression: Non-healing wound Condition: Stable Prescriptions: No Action allopurinol 100 mg tablet 100 mg PO QPM calcium acetate 667 mg tablet 667 mg PO BID carvedilol 25 mg Tablet 25 mg PO BID nifedipine 60 mg Tablet Extended Release 24hr 120 mg PO QAM hydralazine 25 mg tablet 25 mg PO QPM atorvastatin 40 mg tablet 40 mg PO QPM Discharge Orders: Discharge ED (Routine); Ordered 08/25/24 Ordered By: Indy Alvarez Referrals: Humera Mayen MD [Primary Care Provider] - Discharge Diet: Usual diet Discharge Activity: Increase activity as tolerated Patient Instructions: Opioid Safety, Pain Management Activity Restrictions/Additional Instructions: Please arrange follow-up for the person who did this biopsy to evaluate the wound. Thank you for choosing [facility] for your healthcare needs today. Please realize this is an emergency room and that we are providing you with a medical screening exam and this may not be complete and all inclusive of all the testing and or work up that you may need to determine your ailment or severity of your illness. You have been screened and evaluated and felt safe for discharge. Health conditions do change or evolve sometimes and as such it is important that you follow up with your Primary Doctor to be re checked, 3-5 days is a general good time frame for follow up. You are always welcome to return to the ED for re assessment if your symptoms are worsening or you have new concerns Print Language: French Coding Level of Care Code ED Delivery Department Supervisor for Eloy Pike
[2024-08-25 15:57] LABS: Basophils # 0.1 10^3/uL (0.0-0.1); Basophils % 0.7 %; Eosinophils # 0.2 10^3/uL (0.0-0.8); Hematocrit 30.2 % (37-53); Lymphocytes # 1.8 10^3/uL (0.8-4.8); Lymphocytes % 24.3 %; Mean Corpuscular HGB Conc 31.1 g/dL (30-55); Mean Corpuscular Hemoglobin 28.4 pg (27-33); Mean Corpuscular Volume 91.2 fl (82-101); Mean Platelet Volume 10.6 fL (7.4-10.4); Monocytes # 1.1 10^3/uL (0.2-0.9); Monocytes % 14.1 %; Neutrophils # 4.36 10^3/uL (1.8-7.7); Neutrophils % 58.6 %; Nucleated Red Blood Cells % 0 %; Platelet Count 199 10^3/cmm (157-399); Red Blood Count 3.31 10^6/uL (3.85-5.65); Red Cell Distribution Width 15.4 % (12.1-15.1); White Blood Count 7.44 10^3/uL (3.29-11.43)
[2024-08-25 16:08] LABS: INR 0.96 (0.8-1.2)
[2024-08-25 16:09] LABS: Partial Thromboplastin Time 36.5 SECONDS (23.9-36.7)
[2024-08-25 16:14] LABS: Alanine Aminotransferase 11 U/L (0-41); Albumin Level 3.7 g/dL (3.5-5.2); Alkaline Phosphatase 110 U/L (40-130); Anion Gap 16.5 (5-19); Aspartate Amino Transferase 23 U/L (0-40); Blood Urea Nitrogen 36 mg/dL (8-23); Carbon Dioxide 30 mmol/L (22-29); Chloride 94 mmol/L (98-107); Creatinine Clr Calc Pharmacy 12.9658; Globulin 3.2 g/dL (1.3-4.6); Glucose 107 mg/dL (65-115); Osmolality Calculated 291 mOsm/kg (285-295); Potassium 4.5 mmol/L (3.5-5.1); Sodium 136 mmol/L (136-145); Total Bilirubin 0.3 mg/dL (0.15-1.2); Total Protein 6.9 g/dL (6.6-8.7)
[2024-08-25 17:00] VITALS: PULSE 70; O2SAT 95
[2024-08-25 18:35] VITALS: BP 170/64; PULSE 68; O2SAT 93
[2024-08-25] MEDS: lidocaine 1% 10 ML INJ INJECTION (18:35)
[2024-08-25] MEDS: tranexamic acid 1,000 mg/10mL SDV 1000 MG TOPICAL (18:35)
== END 2024-08-25 18:36 | disposition home or self-care (01) ==
PROVIDERS: Emergency Provider Emergency Medicine; PCP Family Medicine
DX: T81.89XA Other complications of procedures, not elsewhere classified, initial encounter (principal); S01.402A Unspecified open wound of left cheek and temporomandibular area, initial encounter; X58.XXXA Exposure to other specified factors, initial encounter; Z86.73 Personal history of transient ischemic attack (TIA), and cerebral infarction without residual deficits; I12.0 Hypertensive chronic kidney disease with stage 5 chronic kidney disease or end stage renal disease; N18.6 End stage renal disease; E78.5 Hyperlipidemia, unspecified
CPT/HCPCS: 12011; 36415; 80053; 85025; 85610; 85730; 99284; J9999

== ENCOUNTER 2024-09-18 13:59 | Outpatient (CLI) | payer OTHER, SELFPAY ==
--- NOTE | 2024-09-18 14:30 | CT_ITS ---
WS: [id number] CT ABDOMEN AND PELVIS WITH CONTRAST HISTORY: hernia TECHNIQUE: Imaging performed of the abdomen and pelvis with IV contrast. Single phase imaging of the abdomen. Coronal and sagittal reformats are submitted. All CT scans at [facility] use at least one of these dose optimization techniques: automated exposure control; mA and/or kV adjustment per patient size (includes targeted exams where dose is matched to clinical indication); or iterative reconstruction. IV CONTRAST: Omnipaque 350; 100 mL IV. Oral contrast: No DLP: 285.28 mGy.cm COMPARISON: 05/03/2024 Lower thorax: Moderate RIGHT and small LEFT pleural effusions. Compressive atelectasis at the lung bases. Moderate cardiomegaly. Heavy dense calcifications in the coronary arteries. Small hiatal hernia. Liver/biliary system: Liver is normal size. Scattered hypodensities are too small to characterize. No intrahepatic duct dilatation. Normal portal vein. Gallbladder: Normal. No gallstones or wall thickening. No pericholecystic fluid. Pancreas: 1.3 cm cystic mass in the body of the pancreas. No pancreatic duct dilatation or atrophy. Spleen: Normal size with granulomata. Adrenal glands: Normal. Right kidney: Moderate to severe atrophy with numerous acquired cysts. Hounsfield units are slightly elevated at and some of the cysts and some are too small to characterize. No obstruction. Left kidney: Numerous cortical cysts in mild diffuse atrophy. Several of the cystic masses are indeterminate. Nonobstructing calcifications. Aorta: Severe atherosclerosis with no aneurysm. Severe atherosclerotic plaque. Severe plaque extends into the celiac axis and SMA. 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 Lymphadenopathy: None. Free fluid: None. GI tract: No GI tract obstruction. Diverticulosis throughout the colon. No evidence for acute diverticulitis. A loop of sigmoid colon extends into the LEFT inguinal hernia. No fluid in the hernia sac and there is no obstruction. Similar to the prior study. Abdominal wall: No umbilical hernia. Pelvis: No free fluid or adenopathy within the pelvis. Bifemoral bypass graft. Normal enhancement to the graft. Urinary bladder is not distended. Bones: No destructive bone process. Schmorl's nodes at several levels. ORIF LEFT hip. CT/CT abdomen pelvis w con* [id number] IMPRESSION: 1. LEFT inguinal hernia containing nondilated sigmoid colon. No obstruction. 2. Moderate RIGHT and small LEFT pleural effusions with compressive atelectasi s. 3. Cardiomegaly. 4. Severe atherosclerotic plaque within the abdominal aorta and mesenteric art eries. 5. Patent bilateral bifemoral bypass graft. 6. Renal atrophy with acquired cysts. Some of these cystic masses cannot be ch aracterized further. 7. Pancreatic body cystic mass measures 1.3 cm. No change since 05/03/2024. Ne w since 2020. Pancreatic neoplasm is not excluded. 8. Too small to characterize hepatic hypodensities.
[2024-09-18] MEDS: iohexol 350 mg/mL 500 mL Btl (per mL) IV (14:47)
== END 2024-09-18 14:00 | disposition home or self-care (01) ==
PROVIDERS: PCP Family Medicine; Visit Provider Student in an Organized Health Care Education/Training Program
DX: K40.90 Unilateral inguinal hernia, without obstruction or gangrene, not specified as recurrent (principal); J90 Pleural effusion, not elsewhere classified; J98.11 Atelectasis; I51.7 Cardiomegaly; I70.0 Atherosclerosis of aorta; K55.1 Chronic vascular disorders of intestine; Z95.828 Presence of other vascular implants and grafts; N26.1 Atrophy of kidney (terminal); N28.1 Cyst of kidney, acquired; K86.89 Other specified diseases of pancreas; I25.10 Atherosclerotic heart disease of native coronary artery without angina pectoris; K44.9 Diaphragmatic hernia without obstruction or gangrene; R93.2 Abnormal findings on diagnostic imaging of liver and biliary tract; D73.89 Other diseases of spleen; R93.421 Abnormal radiologic findings on diagnostic imaging of right kidney; N28.89 Other specified disorders of kidney and ureter; K57.30 Diverticulosis of large intestine without perforation or abscess without bleeding; R93.89 Abnormal findings on diagnostic imaging of other specified body structures; Z98.890 Other specified postprocedural states
CPT/HCPCS: 74177

== ENCOUNTER 2024-10-03 20:00 | Outpatient (CLI) | payer OTHER, SELFPAY | END 2024-10-03 20:01 | disposition home or self-care (01) | LOC: SLEEP 23:31 | PROVIDERS: PCP Family Medicine; Visit Provider Family Medicine | DX: G47.33 Obstructive sleep apnea (adult) (pediatric) (principal); G47.36 Sleep related hypoventilation in conditions classified elsewhere | CPT/HCPCS: 95810 ==

== ENCOUNTER 2025-01-02 20:00 | Outpatient (CLI) | payer OTHER, SELFPAY | END 2025-01-02 20:01 | disposition home or self-care (01) | LOC: SLEEP 01-03 00:55 | PROVIDERS: PCP Family Medicine; Visit Provider Internal Medicine Pulmonary Disease | DX: G47.33 Obstructive sleep apnea (adult) (pediatric) (principal) | CPT/HCPCS: 95811 ==

== ENCOUNTER → 2025-01-22 13:05 | Outpatient (BNVA) | payer OTHER, SELFPAY | PROVIDERS: PCP Family Medicine; Visit Provider Internal Medicine Cardiovascular Disease | DX: R07.9 Chest pain, unspecified (principal); I45.10 Unspecified right bundle-branch block | CPT/HCPCS: 93005 ==

== ENCOUNTER 2025-01-30 05:23 | Inpatient (IN) | payer OTHER, MEDICARE, SELFPAY ==
--- OUTSIDE RECORDS SUMMARY | 2024-05-30 04:45 | XMS_ITS | Encounter Summary ---
Author Name [facility] [place] [facility] [place] Address [address] [place] [address] Care Team Providers Care Facility Assistant Name Role Phone THANH VIVEROS Primary Care Provider Unavailab REDDY Villanueva Primary Care Provider Unavailabl e LEORA PINA Unavailable Unavailable LEORA RIVAS Unavailable Unavailable LAKSHMI GARCIA Unavailable Unavail able LISHA ARCE Unavailable Unavailable November Unavailable Unavailable MARLENA TORIBIO Unavailable Unavailable JOSE ARMANDO FORTUNE Primary Care Provider Unavailabl e Insurance Providers: All historical and current Section Date Range: From patient's date of to the date document was created. This section includes the names of all active insurance providers for the patient. Insurance Provider Type of Coverage Plan Name Start of Policy Coverage End of Policy Coverage Group Number Member ID Insurance Provider's Telephone Number Policy Moya's Name Patient's Relationship to Policy Moya MEDICARE (WNR) MEDICARE (M) PART A Mar 14, 2004 PART A [id number] PATIENT MEDICARE (WNR) MEDICARE (M) PART A Mar 14, 2004 PART A [id number] [phone] PATIENT MEDICARE (WNR) MEDICARE (M) PART A Mar 14, 2004 PART A [id number] [facility] [phone] PATIENT MEDICARE (WNR) MEDICARE (M) PART A Mar 14, 2004 PART A [id number] PATIENT MEDICARE (WNR) MEDICARE (M) PART A Mar 14, 2004 PART A [id number] [facility] [address] PATIENT MEDICARE (WNR) MEDICARE (M) PART A Mar 14, 2004 PART A [id number] [facility] [address] PATIENT MEDICARE (WNR) MEDICARE (M) PART A Mar 14, 2004 PART A [id number] PATIENT MEDICARE (WNR) MEDICARE (M) PART A Mar 14, 2004 PART A [id number] [facility] [address] PATIENT Selected Encounter This section includes the information on record at [place] for the Encounter. Date/Time Encounter Type Encounter Description Reason Provider Source May 30, 2024 09:45 AM OFF/OP EST OCTOBER X REQ PHY/QHP PRIMARY CARE/MEDICINE ICD-10-CM N50.89 Other specified disorders of the male genital organs LUIS WILKES Teresa Encounter Template Text not used by [place] Assessments - Encounter Diagnoses This section includes the primary and secondary diagnoses documented for the Encounter. Date/Time Primary/Secondary Diagnosis Diagnosis Name Provider Source May 30, 2024 11:36 AM PRIMARY Other specified disorders of the male genital organs PERCY WILKES [facility] Plan of Treatment: Future Appointments (+ 6 months) and Future Tests (+/- 45 days) The Plan of Treatment section includes future care activities for the patient from all [place] treatmentfacilities. This section includes future appointments and future orders which are active, pending or scheduled. Future Appointments This section includes appointments that were scheduled to occur 6 months from the date of the Encounter, up to a maximum of 20 appointments. The data comes from all [place] treatment facilities. Appointment Date/Time Appointment Type Appointme nt Facility Name Jun 13, 2024 10:30 AM [facility] Jun 27, 2024 09:15 AM AMBULATORY - MEDICINE [facility] Jul 04, 2024 09:20 AM [facility] - [facility] Jul 10, 2024 10:00 AM [facility] Aug 14, 2024 09:30 AM [facility] Aug 21, 2024 11:20 AM [place] [facility] Aug 21, 2024 01:15 PM [facility] Aug 24, 2024 01:45 PM [facility] Sep 01, 2024 09:30 AM [facility] Sep 01, 2024 09:45 AM [facility] Sep 11, 2024 01:45 PM [facility] - [facility] October 24, 2024 01:40 PM [facility]UL[facility]ORY - [place] [facility] Nov 13, 2024 02:45 PM AM[facility]ULATORY - MEDICINE [facility] Active, Pending, and Scheduled Orders This section includes a listing of several types of active, pending, and scheduled orders, including clinic medications orders, diagnostic test orders, procedure orders and consult orders; where the start date of the order is 45 days before the date of the Encounter or 45 days after the date of theEncounter. The data comes from all [place] treatment facilities. Test Date/Time Test Type Test Details Facility Name May 15, 2024 09:29 AM Consult Order [facility] [id number] Cons Chip Crusher Operator's Choice [facility] Lab Results: +/- 30 days of the encounter This section includes the Chemistry and Hematology Lab Results on record with [place] for the patient. Radiology Reports and Pathology Reports are provided separately, in subsequent sections. Lab Results This section contains the Chemistry/Hematology Results that were resulted 30 days before or 30 daysafter the date of the Encounter. Date/Time Source Result Type Result - Unit Interpretation Reference Range Specimen Type Comment May 30, 2024 10:30 AM [facility] CBC BLOOD Specimen Type: BLOOD No comment entered. Ordering Provider: JOSE ARMANDO FORTUNE Report Released Date/Time: May 30, 2024 10:28 AM Reporting Lab: [place] [facility] [address] [place] [address] Performing Lab: [place] [facility] [address] [place] [address] WBC 4.5 10*3/uL 3.6-11.2 RBC 2.85 10*6/uL L 4.10-5.70 HGB 8.6 g/dL L 13.1-16.8 HCT 26.8 L 38.2-48.4 MCV 94.0 fL 80.0-100.0 MCH 30.2 pg 27.0-34.0 MCHC 32.1 g/dL L 33.0-36.0 PLT 238 10*3/uL 150-400 MPV 10.8 fL 7.5-11.2 RDW 16.2 H 11.8-15.1 LYMPHOCYTES, AUTO % 20.1 MONOCYTES, AUTO % 12.9 NEUTROPHILS, AUTO % 64.3 EOSINOPHILS, AUTO % 1.6 BASOPHILS, AUTO % 0.4 LYMPHOCYTES, ABSOLUTE 0.90 10*3/uL 0.77- 4.50 MONOCYTES, ABSOLUTE 0.58 10*3/uL 0.19-0. 8 NEUTROPHILS, ABSOLUTE 2.88 10*3/uL 2.10- 8.00 EOSINOPHILS, ABSOLUTE 0.07 10*3/uL 0.00- 0.60 BASOPHILS, ABSOLUTE 0.02 10*3/uL 0.00-0. 20 IMMATURE GRANS, AUTO % 0.7 IMMATURE GRANS, AUTO ABS 0.03 10*3/uL 0. 00-0.05 Vital Signs: All taken on the encounter date This section contains inpatient and outpatient Vital Signs collected on the date of the Encounter. Date/Time Temperature Pulse Blood Pressure Respiratory Rate SP02 Pain Height Weight Body Mass Index Source May 30, 2024 10:36 AM 75 176/76 16 1 [facility] Social History: Smoking Status (Most current) and Tobacco Use (All prior to encounter date) This section includes the most current, and the historical, smoking and tobacco- related health factors from the [place] facility where the Encounter took place. Current Smoking Status This section includes the most current smoking, or tobacco-related health factor, from the [place] facility where the Encounter took place. Date/Time Current Smoking Status Comment Blade dewey Jul 19, 2023 09:00 AM [place]-TOBACCO FORMER USER [facility] Tobacco Use History This section includes a history of the smoking, or tobacco-related health factors, that were collected on or before the date of the Encounter. The data comes from the [place] facility where the Encounter took place. Date/Time Smoking Status/Tobacco Use Comment F acility Jul 19, 2023 09:00 AM VA-TOBACCO QUIT 15 YRS OR MORE [facility] Jul 27, 2022 10:00 AM VA-TOBACCO FORMER USER [facility] Jul 27, 2022 10:00 AM VA-TOBACCO QUIT 15 YRS OR MORE [facility] Jul 29, 2021 09:30 AM VA-TOBACCO NEVER USED [facility] Jul 23, 2020 08:32 AM [facility] Jul 23, 2020 08:32 AM VA-TOBACCO QUIT 15 YRS OR MORE [facility] Sep 25, 2010 10:27 AM QUIT TOBACCO >7 YEARS AGO [facility] October 17, 2009 01:55 PM QUIT TOBACCO >12 MO & <7 YRS AGO [facility] Advance Directives: All historical and current Section Date Range: From patient's date of to the date document was created. This section includes ALL of a patient's completed or amended [place] Advance and Rescinded Directives. The entries below indicate that a directive exists for the patient, but an actual copy is not included with this document. The data comes from all [place] facilities. Date Advance Directives Provider Source Jun 03, 2012 ADVANCE DIRECTIVE RYAN TAPIA [facility] May 28, 2012 ADVANCE DIRECTIVE JAMARI BRISENOU [facility] Apr 14, 2012 ADVANCE DIRECTIVE DISCUSSION RYAN TAPIA [facility] Dec 02, 2010 ADVANCE DIRECTIVE DISCUSSION RYAN TAPIA [facility] Encounter Notes: All associated encounter notes This section contains the clinical notes associated to the Encounter. Date/Time Encounter Note(s) Provider Source May 30, 2024 09:42 AM NURSING PROGRESS N OTE: LOCAL TITLE: NURSING NOTE PB STANDARD TITLE: NURSING PROGRESS NOTE DATE OF NOTE: MAY 30, 2024@09:42 ENTRY DATE: MAY 30, 2024@09:42:11 AUTHOR: PERCY WILKES COSIGNER: URGENCY: STATUS: COMPLETED This is a 84 year old MALE with known Allergies as noted: IBUPROFEN On the following Active Medications: Active Outpatient Medications (including Supplies): Active Outpatient Medications Status 1) ALBUTEROL 90MCG (CFC-F) 200D ORAL INHL INHALE 2 PUFFS ORAL ACTIVE INHALATION EVERY 4 HOURS NEEDED SHAKE WELL. RINSE MOUTHPIECE FREQUENTLY TO PREVENT CLOGGING. Indication: FOR COPD 2) ALLOPURINOL 100MG TAB TAKE ONE TABLET BY MOUTH ONCE A DAY ACTIVE FOR GOUT. TAKE WITH PLENTY OF WATER. 3) ATORVASTATIN CALCIUM 40MG TAB TAKE ONE-HALF TABLET BY MOUTH ACTIVE EVERY EVENING TO LOWER CHOLESTEROL 4) CALCIUM ACETATE 667MG (CA 169MG) CAP TAKE TWO CAPSULES BY ACTIVE MOUTH THREE TIMES A DAY WITH MEALS AND SNACKS FOR REDUCING PHOSPHORUS. 5) RENAL MULTIVIT W/1MG OR LESS FA TAB TAKE 1 TABLET BY MOUTH ACTIVE ONCE A DAY C/C: Questions about recent blood work and issues with Left tactical swelling up. S: The presented to the clinic today with the complaint of his left tactical swelling up. Reports that it started about a month ago, and that it has happened 3-4 times. Reports when it does he takes a couple of Tylenol and the swelling goes down. The denies current swelling. The also reports that he was sent to the ER again because when they did his labs his HGB was 6.8 but when he went to the ER they told him it was 8.2. The reports this was the second time he was sent to the ER for this. Reports that last time they told him his HGB was 7 and then the ER said it was 7.7. The would like to get his HGB checked today. O/A: The ambulated to the exam room using a wheelchair, Chaplin reports he is able to stand abut that he cannot walk. ------ it is fine for us to order and check a cub on him if he would like. typically, dialysis checks labs prior to dialysis and I believe he is receiving dialysis 3 times a week but if he would like us to check it then that is reasonable and we can add an order. /adarsh/ [facility] Signed: 05/24/2024 14:34 --------- BP is elevated today in clinic. The reports that he takes Nifedipine, but that he has not taken it today because he was told not to take it before dialyses. The will take this as soon as he gets home. Vital Signs: as charted P: Discussed the above symptoms and assessment with RYLIE Cordero. Let the know that Shannan was going to order an US of his left tactical. Also let the know that we would be doing a CBC today. The voiced understanding, is in agreement with the plan and has no further questions or complaints at this time. The made his way to the exit in satisfactory manner. The also needs a refill of this medication. Drug Name NIFEDIPINE (EQV-CC) 60MG SA TAB Issue Date 05/18/2023 SIG TAKE TWO TABLETS BY MOUTH ONCE A DAY FOR HEART/BLOOD PRESSURE. PREFERABLE TO TAKE ON EMPTY STOMACH. SWALLOW WHOLE; DO NOT CRUSH OR CHEW. AVOID GRAPEFRUIT JUICE. RTC: as needed /adarsh/ Percy Wilkes RN,BSN [place] Signed: 05/30/2024 11:16 Receipt Acknowledged By: 05/31/2024 17:32 /adarsh/ MYLENE Gutierres PlainLAILA bynum JOHANNA R [facility]
--- OUTSIDE RECORDS SUMMARY | 2024-06-13 05:30 | XMS_ITS | Encounter Summary ---
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 Name Role Phone JACKELINEVINNYTHANH Primary Care Provider Unavailab REDDY Villanueva Primary Care Provider Unavailabl e LEORA PINA Unavailable Unavailable LEORA RIVAS Unavailable Unavailable LAKSHMI GARCIA Unavailable Unavail able LISHA ARCE Unavailable Unavailable ANTIONE, NOVEMBER Unavailable Unavailable MARLENA TORIBIO Unavailable Unavailable HUMERA FORTUNE Primary Care Provider Unavailabl e Insurance [...] PART A Mar 14, 2004 PART A [id number] [id number] [phone] PATIENT MEDICARE (WNR) MEDICARE (M) PART A Mar 14, 2004 PART A [id number] PATIENT MEDICARE (WNR) MEDICARE (M) PART A Mar 14, 2004 PART A [id number] [facility] [phone] PATIENT MEDICARE (WNR) MEDICARE (M) PART A Mar 14, 2004 PART A [id number] PATIENT MEDICARE (WNR) MEDICARE (M) PART A Mar 14, 2004 PART A [id number] [facility] [place] Moore PATIENT MEDICARE (WNR) MEDICARE (M) PART A Mar 14, 2004 PART A [id number] [facility] [place]OW[place] Moore PATIENT MEDICARE (WNR) MEDICARE (M) PART A Mar 14, 2004 PART A [id number] [phone] PATIENT MEDICARE (WNR) MEDICARE (M) PART A Mar 14, 2004 PART A [id number] [facility] [address] PATIENT Selected Encounter This section includes the information on record at [place] for the Encounter. Date/Time Encounter Type Encounter Description Reason Provider Source Jun 13, 2024 10:30 AM OFFICE O/P EST MOD 30 MIN PRIMARY CARE/MEDICINE ICD-10-CM D49.2 Neoplasm of unsp behavior of bone, soft tissue, and skin HUMERA FORTUNE Encounter Template Text not used by [place] Assessments - Encounter Diagnoses This section includes the primary and secondary diagnoses documented for the Encounter. Date/Time Primary/Secondary Diagnosis Diagnosis Name Provider Source Jun 21, 2024 11:59 AM PRIMARY Neoplasm of unsp behavior of bone, soft tissue, and skin HUMERA FORTUNE [facility] Jun 21, 2024 11:59 AM SECONDARY Transient cerebral ischemic attack, unspecified HUMERA FORTUNE Jun 21, 2024 11:59 AM SECONDARY Unil inguinal hernia, w/o obst or gangr, not spcf as recur HUMERA FORTUNE [facility] Plan of Treatment: Future Appointments (+ 6 months) and Future Tests (+/- 45 days) The Plan of Treatment section includes future care activities for the patient from all [facility] treatment[facility]ilities. This section includes future appointments and future orders which are active, pending or scheduled. Future Appointments This section includes appointments that were scheduled to occur 6 months from the date of the Encounter, up to a maximum of 20 appointments. The data comes from all [place] treatment [facility]. Appointment Date/Time Appointment Type Appointme nt Facility Name Jun 27, 2024 09:15 AM AMBULATORY - MEDICINE [facility] Jul 04, 2024 09:20 AM AMBULATORY - MEDICINE [facility] Jul 10, 2024 10:00 AM AMBULATORY - MEDICINE [facility] Aug 14, 2024 09:30 AM AMBULATORY - MEDICINE [facility] Aug 21, 2024 11:20 AM AMBULATORY - [place] [facility] Aug 21, 2024 01:15 PM AMBULATORY - MEDICINE [facility] Aug 24, 2024 01:45 PM AMBULATORY - MEDICINE [facility] Sep 01, 2024 09:30 AM AMBULATORY - MEDICINE [facility] Sep 01, 2024 09:45 AM AMBULATORY - MEDICINE [facility] Sep 11, 2024 01:45 PM AMBULATORY - MEDICINE [facility] October 24, 2024 01:40 PM AMBULATORY - SURGERY [place] [facility] Nov 13, 2024 02:45 PM AMBULATORY - MEDICINE [facility] Active, Pending, and Scheduled Orders This section includes a listing of several types of active, pending, and scheduled orders, including clinic medications orders, diagnostic test orders, procedure orders and consult orders; where the start date of the order is 45 days before the date of the Encounter or 45 days after the date of theEncounter. The data comes from all [facility]. Test Date/Time Test Type Test Details Facility Name May 15, 2024 09:29 AM Consult Order [facility] 657A4 Cons [employer] Developer[facility] Lab Results: +/- 30 days of the encounter This section includes the Chemistry and Hematology Lab Results on record with [place] for the patient. Radiology Reports and Pathology Reports are provided separately, in subsequent sections. Lab Results This section contains the Chemistry/Hematology Results that were resulted 30 days before or 30 daysafter the date of the Encounter. Date/Time Source Result Type Result - Unit Interpretation Reference Range Specimen Type Comment Jul 04, 2024 09:23 AM [facility] HGA1C BLOOD Specimen Type: BLOOD No comment entered. Ordering Provider: HUMERA FORTUNE Report Released Date/Time: Jul 19, 2023 09:44 AM Reporting Lab: [place] [facility] [address] [place] [address] Performing Lab: [place] [facility] [address] [place] [address] HGA1C 4.1 4.0-6.0 Jul 04, 2024 09:23 AM [facility] TSH (MA-PB) SERUM Specimen Typ e: SERUM No comment entered. Ordering Provider: HUMERA FORTUNE Report Released Date/Time: Jul 19, 2023 09:44 AM Reporting Lab: [place] [facility] [address] [place] [address] Performing Lab: [place] [facility] [address] [place] [address] TSH 3.286 u[IU]/mL 0.47-5 Jul 04, 2024 09:23 AM [facility] CHOLESTEROL PANEL (PB) PLASMA Specimen Type: P LASMA No comment entered. Ordering Provider: HUMERA FORTUNE Report Released Date/Time: Jul 19, 2023 09:44 AM Reporting Lab: [place] [facility] [address] [place] [address] Performing Lab: [place] [facility] [address] [place] [address] CHOLESTEROL 119 mg/dL 0-200 TRIGLYCERIDE 73 mg/dL 0-150 CALCULATED LDL 46.4 mg/dL HDL(New) 58.0 mg/dL H >40 HDL % OF TOTAL CHOLESTEROL (PB) 48.7 >25 Jul 04, 2024 09:23 AM [facility] COMPREHENSIVE METABOLIC PANEL PLASMA Specimen Type: PLASMA No comment entered. Ordering Provider: HUMERA FORTUNE Report Released Date/Time: Jul 19, 2023 09:44 AM Reporting Lab: [place] [facility] [address] [place] [address] Performing Lab: [place] [facility] [address] [place] [address] CREATININE 2.82 mg/dL H 0.7-1.3 UREA NITROGEN 15 mg/dL 9-25 GLUCOSE 85 mg/dL 72-99 SODIUM 138 meq/L 136-145 POTASSIUM 4.3 meq/L 3.5-5 CHLORIDE 97 meq/L L 98-107 CARBON DIOXIDE 27 meq/L 22-31 CALCIUM 9.1 mg/dL 8.4-10.4 PROTEIN 7.9 g/dL 6-8.6 ALBUMIN 3.8 g/dL 3.4-5 TOTAL BILIRUBIN 0.8 mg/dL 0.2-1.2 ALKALINE PHOSPHATASE 133 U/L 40-150 AST/SGOT 21 U/L 5-34 ALT/SGPT 8 U/L 8-40 EGFR (CKD-EPI 2020) Jul 04, 2024 09:22 AM [facility] CBC BLOOD Specimen Type: BLOOD No comment entered. Ordering Provider: HUMERA FORTUNE Report Released Date/Time: Jul 19, 2023 09:44 AM Reporting Lab: [place] [facility] [address] [place] [facility] [address] Performing Lab: [place] [facility] [address] [facility] [facility] [address] WBC 8.7 10*3/uL 3.6-11.2 RBC 4.23 10*6/uL 4.10-5.70 HGB 12.3 g/dL L 13.1-16.8 HCT 38.8 38.2-48.4 MCV 91.7 fL 80.0-100.0 MCH 29.1 pg 27.0-34.0 MCHC 31.7 g/dL L 33.0-36.0 PLT 289 10*3/uL 150-400 MPV 10.4 fL 7.5-11.2 RDW 16.2 H 11.8-15.1 LYMPHOCYTES, AUTO % 20.2 MONOCYTES, AUTO % 12.7 NEUTROPHILS, AUTO % 64.7 EOSINOPHILS, AUTO % 1.3 BASOPHILS, AUTO % 0.8 LYMPHOCYTES, ABSOLUTE 1.75 10*3/uL 0.77- 4.50 MONOCYTES, ABSOLUTE 1.10 10*3/uL H 0.19-0. 8 NEUTROPHILS, ABSOLUTE 5.61 10*3/uL 2.10- 8.00 EOSINOPHILS, ABSOLUTE 0.11 10*3/uL 0.00- 0.60 BASOPHILS, ABSOLUTE 0.07 10*3/uL 0.00-0. 20 IMMATURE GRANS, AUTO % 0.3 IMMATURE GRANS, AUTO ABS 0.03 10*3/uL 0. 00-0.05 May 30, 2024 10:30 AM [facility] CBC BLOOD Specimen Type: BLOOD No comment entered. Ordering Provider: HUMERA FORTUNE Report Released Date/Time: May 30, 2024 10:28 AM Reporting Lab: [place] [facility] [address] [place] [address] Performing Lab: [place] [facility] [address] [place] [facility] [address] WBC 4.5 10*3/uL 3.6-11.2 RBC 2.85 10*6/uL [...] Pain Height Weight Body Mass Index Source Jun 13, 2024 12:38 PM 69 92/39 [facility] Jun 13, 2024 10:41 AM 98.3 70 196/75 17 96 0 146.4 20 [facility] Social History: Smoking Status (Most current) and Tobacco Use (All prior to encounter date) This section includes the most current, and the historical, smoking and tobacco- related health factors from the [place] facility where the Encounter took place. Current Smoking Status This section includes the most current smoking, or tobacco-related health factor, from the [place] facility where the Encounter took place. Date/Time Current Smoking Status Comment Facil ity Jul 19, 2023 09:00 AM VA-TOBACCO FORMER USER [facility] Tobacco Use History This section includes a history of the smoking, or tobacco-related health factors, that were collected on or before the date of the Encounter. The data comes from the [place] facility where the Encounter took place. Date/Time Smoking Status/Tobacco Use Comment F acility Jul 19, 2023 09:00 AM VA-TOBACCO QUIT 15 YRS OR MORE [facility] Jul 27, 2022 10:00 AM [facility]-[place]BACCO FORMER US[place] [facility] Jul 27, 2022 10:00 AM [facility] YRS [facility] Jul 29, 2021 09:30 AM [facility]-TOBACCO NEVER USED [facility] [place] [facility] Jul 23, 2020 08:32 AM VA-TOBACCO FORMER USER [facility] Jul 23, 2020 08:32 AM VA-TOBACCO QUIT 15 YRS OR MORE [facility] Sep 25, 2010 10:27 AM QUIT TOBACCO >7 YEARS AGO [facility] October 17, 2009 01:55 PM QUIT TOBACCO >12 MO & <7 YRS AGO [facility] Advance Directives: All historical and current Section Date Range: From patient's date of to the date document was created. This section includes ALL of a patient's completed or amended [place] Advance and Rescinded Directives. The entries below indicate that a directive exists for the patient, but an actual copy is not included with this document. The data comes from all [place] facilities. Date Advance Directives Provider Source Jun 03, 2012 ADVANCE DIRECTIVE RYAN TAPIA [facility] May 28, 2012 ADVANCE DIRECTIVE JAMARI BRISENOU FF [facility] Apr 14, 2012 ADVANCE DIRECTIVE DISCUSSION RYAN TAPIA [facility] Dec 02, 2010 ADVANCE DIRECTIVE DISCUSSION RYAN TAPIA [facility] Pathology Reports: +/- 30 days of the encounter Pathology Reports For cases when an order for pathology services may have been completed prior to the date of the Encounter, the report list includes the Pathology Reports that were completed up to 30 days before dateof the Encounter. For cases when an order for pathology services may have been completed after the date of the Encounter, the report list also includes the Pathology Reports that were completed up to30 days after date of the Encounter. The data comes from all [facility] facilities. Date/Time Pathology Report Provider Source Jun 30, 2024 05:07 PM LR SURGICAL PATHOLOGY REPORT: LOCAL TITLE: LR SURGICAL PATHOLOGY REPORT STANDARD TITLE: PATHOLOGY PROCEDURE NOTE DATE OF NOTE: JUN 30, 2024@17:07:20 ENTRY DATE: JUN 30, 2024@17:07:20 AUTHOR: LORRAINE MATSON EXP COSIGNER: URGENCY: STATUS: COMPLETED $APHDR - - - - - - - - - - - - - - - - - - - - - - - - - - - - - - - - - - - - - - - - MEDICAL RECORD SURGICAL PATHOLOGY - - - - - - - - - - - - - - - - - - - - - - - - - - - - - - - - - - - - - - - - PATHOLOGY REPORT Accession No. SP [id number] - - - - - - - - - - - - - - - - - - - - - - - - - - - - - - - - - - - - - - - - $TEXT Submitted by: Date obtained: Jun 13, 2024 - - - - - - - - - - - - - - - - - - - - - - - - - - - - - - - - - - - - - - - - Specimen (Received Jun 29, 2024 09:55): A. EXCISIONAL BIOPSY WITH MARGINS,RIGHT UPPER BACK/SHOULDER - - - - - - - - - - - - - - - - - - - - - - - - - - - - - - - - - - - - - - - - BRIEF CLINICAL HISTORY: Excisional biopsy with margins, right upper back/shoulder - - - - - - - - - - - - - - - - - - - - - - - - - - - - - - - - - - - - - - - - PREOPERATIVE DIAGNOSIS: - - - - - - - - - - - - - - - - - - - - - - - - - - - - - - - - - - - - - - - - OPERATIVE FINDINGS: Skin lesion on right upper back/shoulder - - - - - - - - - - - - - - - - - - - - - - - - - - - - - - - - - - - - - - - - POSTOPERATIVE DIAGNOSIS: Surgeon/physician: HUMERA FORTUNE MD =-=-=-=-=-=-=-=-=-=-=-=-=-=-= -=-=-=-=-=-=-=-=-=-=-=-=-=-=- =-=-=-=-=-=-=-=-=-=-= - - - - - - - - - - - - - - - - - - - - - - - - - - - - - - - - - - - - - - - - PATHOLOGY REPORT Accession No. SP [id number] - - - - - - - - - - - - - - - - - - - - - - - - - - - - - - - - - - - - - - - - GROSS DESCRIPTION: (Wing, 06-29-2024) The specimen is received in formalin, in a container labeled with the patient's name, full SSN and designated biopsy with margins right upper back/shoulder . It consists of one cleaning lepe unoriented skin ellipse tissue fragment that measures 3.0 x 2.0 cm at its base with an exophytic cleaning lepe lesion measuring 2.0 x 1.5 cm. The skin is excised to a depth of 0.9 cm. Also present within the same container a detahced fragment (likely from the surface defect of the lesion) that measures 1.0 x 1.0 x 0.3 cm. One edge is inked blue, the opposite edge red and the deep margin black. The specimen is submitted entirely in cassettes A1(tips), A2-A6 (remaining skin sequentially) and A7 (detached fragment bisected). 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 All margins are negative for tumor. 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 FREE OF TUMOR /adarsh/ LORRAINE MATSON Pathologist Signed Jun 30, 2024@17:07 Performing Laboratory: Surgical Pathology Report Performed By: [facility] CLIA# [id number] [address] [facility] [address] [place] [address] $FTR - - - - - - - - - - - - - - - - - - - - - - - - - - - - - - - - - - - - - - - - (End of report) LORRAINE MATSON MD [facility] Date Jun 30, 2024 - - - - - - - - - - - - - - - - - - - - - - - - - - - - - - - - - - - - - - - - [address] STANDARD FORM 515 ID:[id number] SEX:M :1940 AGE: 84 LOC:&ALBRE PCP: Humera Fortune MD /adarsh/ LORRAINE MATSON Pathologist Signed: 06/30/2024 17:07 LORRAINE MATSON [facility] Encounter Notes: All associated encounter notes This section contains the clinical notes associated to the Encounter. Date/Time Encounter Note(s) Provider Source Jul 04, 2024 03:03 PM ADDENDUM: LOCAL TITLE: Addendum STANDARD TITLE: ADDENDUM DATE OF NOTE: JUL 04, 2024@15:03:37 ENTRY DATE: JUL 04, 2024@15:03:38 AUTHOR: RADHA NIX COSIGNER: URGENCY: STATUS: COMPLETED Report ---- SURGICAL PATHOLOGY ---- - - - - - - - - - - - - - - - - - - - - - - - - - - - - - - - - - - - - - - - - MEDICAL RECORD SURGICAL PATHOLOGY - - - - - - - - - - - - - - - - - - - - - - - - - - - - - - - - - - - - - - - - PATHOLOGY REPORT Accession No. SP [id number] - - - - - - - - - - - - - - - - - - - - - - - - - - - - - - - - - - - - - - - - Submitted by: Date obtained: Jun 13, 2024 - - - - - - - - - - - - - - - - - - - - - - - - - - - - - - - - - - - - - - - - Specimen (Received Jun 29, 2024 09:55): A. EXCISIONAL BIOPSY WITH MARGINS,RIGHT UPPER BACK/SHOULDER - - - - - - - - - - - - - - - - - - - - - - - - - - - - - - - - - - - - - - - - BRIEF CLINICAL HISTORY: Excisional biopsy with margins, right upper back/shoulder - - - - - - - - - - - - - - - - - - - - - - - - - - - - - - - - - - - - - - - - PREOPERATIVE DIAGNOSIS: - - - - - - - - - - - - - - - - - - - - - - - - - - - - - - - - - - - - - - - - OPERATIVE FINDINGS: Skin lesion on right upper back/shoulder - - - - - - - - - - - - - - - - - - - - - - - - - - - - - - - - - - - - - - - - POSTOPERATIVE DIAGNOSIS: Surgeon/physician: HUMERA FORTUNE MD =-=-=-=-=-=-=-=-=-=-=-=-=-=-=- =-=-=-=-=-=-=-=-=-=-=-=-=-=-=- =-=-=-=-=-=-=-=-=- = - - - - - - - - - - - - - - - - - - - - - - - - - - - - - - - - - - - - - - - - PATHOLOGY REPORT Accession No. SP [id number] - - - - - - - - - - - - - - - - - - - - - - - - - - - - - - - - - - - - - - - - GROSS DESCRIPTION: (Wing, 06-29-2024) The specimen is received in formalin, in a container labeled with the patient's name, full SSN and designated biopsy with margins right upper back/shoulder . It consists of one cleaning lepe unoriented skin ellipse tissue fragment that measures 3.0 x 2.0 cm at its base with an exophytic cleaning lepe lesion measuring 2.0 x 1.5 cm. The skin is excised to a depth of 0.9 cm. Also present within the same container a detahced fragment (likely from the surface defect of the lesion) that measures 1.0 x 1.0 x 0.3 cm. One edge is inked blue, the opposite edge red and the deep margin black. The specimen is submitted entirely in cassettes A1(tips), A2-A6 (remaining skin sequentially) and A7 (detached fragment bisected). 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 All margins are negative for tumor. 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 FREE OF TUMOR /es/ LORRAINE MATSON Pathologist Signed Jun 30, 2024@17:07 Performing Laboratory: Surgical Pathology Report Performed By: [address]# [id number] [address] [place] [address] - - - - - - - - - - - - - - - - - - - - - - - - - - - - - - - - - - - - - - - - (End of report) LORRAINE MATSON MD [facility] Date Jun 30, 2024 - - - - - - - - - - - - - - - - - - - - - - - - - - - - - - - - - - - - - - - - [address] STANDARD FORM 515 ID:[id number] SEX:M :1940 AGE: 84 LOC:CHAPARRITA PCP: Humera Fortune MD Facility: [facility] /es/ RADHA NIX LPN [facility] Signed: 07/04/2024 15:03 Receipt Acknowledged By: 07/10/2024 13:10 /es/ Humera Fortune MD [facility] --- Original Document --- 06/13/24 PRIMARY CARE CLINIC PROGRESS NOTE PB: CC: ER follow-up HPI: Patient was seen in the ER yesterday for c/o slurred speach for about 45 minutes. He was hypertensive. He has been told to hold his nifedipine 60mg before his dialysis treatments because of hypotension. He for the las 4 visits or so has taken hydralazine 10mg though because his BP was too high in the 180s. Yesterday he had taken his hydralzine bfore dialysis and when in the ER his BP was elevated. He comes in today wihtou taking any of his morning meds. He also is concerned aobut a knot on his upper back he has had for 2 months. He also has a left inguinal hernia that bothers him about once a week but is resolved with tylenol. 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 Erwin? FAMILY HX: Mother is , age - 94 Father is , age - 87 Siblings - neg SOCIAL HX: MARITAL STATUS: , Keysha WORK HX: retired- multiple jobs HOBBIES: none TOBACCO: no ALCOHOL: occ beer DRUGS: no HX: BRANCH: [employer] 1957-. JOB/DUTIES: [employer] OVERSEAS STATIONS/DEPLOYMENTS: [facility] MAJOR ACCIDENTS OR INJURIES WHILE ON ACTIVE DUTY: SURGICAL HX: Bilateral knee replacements Stents in aorta Stent in bilateral ? 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 5) CARVEDILOL 25MG TAB TAKE ONE TABLET BY MOUTH TWICE A DAY FOR ACTIVE HEART. TAKE WITH FOOD. 6) LORATADINE 10MG TAB TAKE ONE TABLET BY MOUTH ONCE A DAY ON ACTIVE EMPTY STOMACH 7) NIFEDIPINE (EQV-CC) 60MG SA TAB TAKE TWO TABLETS BY MOUTH ACTIVE ONCE A DAY FOR HEART/BLOOD PRESSURE. PREFERABLE TO TAKE ON EMPTY STOMACH. SWALLOW WHOLE; DO NOT CRUSH OR CHEW. AVOID GRAPEFRUIT JUICE. 8) RENAL MULTIVIT W/1MG OR LESS FA TAB TAKE 1 TABLET BY MOUTH ACTIVE ONCE A DAY OBJECTIVE: Vital Signs Temperature: 98.3 F [36.8 C] (06/13/2024 10:41) Respiratory Rate: 17 (06/13/2024 10:41) Pulse Rate: 70 (06/13/2024 10:41) Blood Pressure: 196/75 (06/13/2024 10:41) HT: 72.0 in [182.9 cm] (12/13/2023 11:33) WT: 146.4 lb [66.41 kg] (06/13/2024 10:41) BMI: 19.9 96% (06/13/2024 10:41) Physical Exam General: NAD noted, A&Ox3, pleasant, appears stated age HEENT: NCAT, TM's clear, nares and oropharynx clear Neck: Supple with normal active ROM, without any lymphadenopathy Heart: RRR, no murmur, clicks, or rub Resp: Lungs CTA bilaterally, respirations even and unlabored Abdomen: Soft, non-distended, non-tender Ext: No clubbing, cyanosis, edema or obvious deformity : Moderate to large indirect left inguinal hernia non-reducable, minimal tenderness, no erythema Neuro: Grossly intact Skin: 4cm raised nodular lesion with a rough dried center, no surrounding erythema. Psych: Affect normal, answers questions appropriately throughout visit Assessment/Plan: 1) TIA hypertensive crisis- will go home and take his nifedipine and return for an exsional bx; retuen visit BP low 90s/50s asymptomatic. He is taking an 81mg Aspirin; will add plavix if continues with conrolled BP 2) Hypertension- will derease his nifedipine to 30mg in am, keep a BP log and recheck next week after dialysis 3) Skin lesion concerning for skin cancer- excisional bipsy as below 4) Left inguinal hernia- patinet is not interested in surgery at this time; understands neesd to go tothe ER if increased pain, constipations, vomiting, etc. Suspicious skin lesions upper back just right of midline- informed consent obtained and time out performed. Area cleaned with betadine solution and 10ml of 1% lidocaine used for local anesthesia SQ infiltrate. #11 blade scalpel used to excised out the lesions, which was sent to pathology for examination. Skin closed with 3 simple interrupted and a 3cm continuous running 5:0 nylon suture. Patient tolerated well with about 10 ml blood loss; triple antibiotic ointment with bandaid applied. Written instruction given on wound care. Follow-up: 2 weeks stitch removal and/or as needed. Discussed with patient that in the event of community imaging / testing being ordered in the future, once the imaging / testing has been completed, please notify PACT of completion at outside facility if not called with results within 1 week by a [facility] member; this is due to intermittent lapses in notification of imaging completion within [facility]. All questions answered; agrees to plan of care. Follow up as listed above, annually, and as needed. Keep all appointments. Medications Reconciled. See AVS given to [place]. Time spent 30 minutes. /adarsh/ Humera Fortune MD [facility] Signed: 06/13/2024 14:04 06/28/2024 ADDENDUM STATUS: COMPLETED Can we call lab and ask about his pathology report which should be back by now. /adarsh/ Humera Fortune MD [facility] Signed: 06/28/2024 09:35 Receipt Acknowledged By: 07/04/2024 15:03 /adarsh/ RAD[facility]24 ADDENDUM STATUS: COMPLETED The presented to the clinic for Blood work. The reports that he is still taking his Nupharamine 60mg two tablets every morning. The reports that he took this medication this morning and his BP today in clinic was 138/69 Pulse 79. Asked the to keep a BP log and bring it into the clinic on Wednesday for a BP check. The is also asking about the Plavix that was talked about at his last visit. Let the know for now he should continue with his medications as he is taking them and we will discuss when Dr. Fortune comes back on Wednesday. The voiced understanding and had no further questions at this time. /adarsh/ Percy Wilkes RN,BSN [facility] Signed: 07/04/2024 10:09 RADHA NIX [facility] Jun 28, 2024 09:34 AM ADDENDUM: LOCAL TITLE: Addendum STANDARD TITLE: ADDENDUM DATE OF NOTE: JUN 28, 2024@09:34:42 ENTRY DATE: JUN 28, 2024@09:34:43 AUTHOR: HUMERA FORTUNE EXP COSIGNER: URGENCY: STATUS: COMPLETED Can we call lab and ask about his pathology report which should be back by now. /adarsh/ Humera Fortune MD [facility] Signed: 06/28/2024 09:35 Receipt Acknowledged By: 07/04/2024 15:03 /adarsh/ RADHA NIX LPN [facility] --- Original Document --- 06/13/24 PRIMARY CARE CLINIC PROGRESS NOTE PB: CC: ER follow-up HPI: Patient was seen in the ER yesterday for c/o slurred speach for about 45 minutes. He was hypertensive. He has been told to hold his nifedipine 60mg before his dialysis treatments because of hypotension. He for the las 4 visits or so has taken hydralazine 10mg though because his BP was too high in the 180s. Yesterday he had taken his hydralzine bfore dialysis and when in the ER his BP was elevated. He comes in today wihtou taking any of his morning meds. He also is concerned aobut a knot on his upper back he has had for 2 months. He also has a left inguinal hernia that bothers him about once a week but is resolved with tylenol. 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 Erwin? FAMILY HX: Mother is , age - 94 Father is , age - 87 Siblings - neg SOCIAL HX: MARITAL STATUS: , Keysha WORK HX: retired- multiple jobs HOBBIES: none TOBACCO: no ALCOHOL: occ beer DRUGS: no HX: BRANCH: [employer] 1957-. JOB/DUTIES: [employer] OVERSEAS STATIONS/DEPLOYMENTS: [facility] MAJOR ACCIDENTS OR INJURIES WHILE ON ACTIVE DUTY: SURGICAL HX: Bilateral knee replacements Stents in aorta Stent in bilateral ? femoral arteries Problem List 1) Chronic tophaceous gout (SNOMED CT 55759873) 2) Hip Pain 3) Benign essential hypertension (SNOMED CT 6218338) 4) Osteoarthritis (SNOMED CT 225126787) 5) Peripheral arterial occlusive disease 6) Hyperlipidemia (SNOMED CT 10844454) 7) Eczema 8) Renal failure 9) Hearing loss 10) Peripheral neuropathy 11) Generalized pruritus 12) Chronic diastolic heart failure 13) Aortic valve stenosis 14) Chronic hypoxemic respiratory failure 15) Coronary artery disease Active Outpatient Medications (including Supplies): Active Outpatient [...] MEALS AND SNACKS FOR REDUCING PHOSPHORUS. 5) CARVEDILOL 25MG TAB TAKE ONE TABLET BY MOUTH TWICE A DAY FOR ACTIVE HEART. TAKE WITH FOOD. 6) LORATADINE 10MG TAB TAKE ONE TABLET BY MOUTH ONCE A DAY ON ACTIVE EMPTY STOMACH 7) NIFEDIPINE (EQV-CC) 60MG SA TAB TAKE TWO TABLETS BY MOUTH ACTIVE ONCE A DAY FOR HEART/BLOOD PRESSURE. PREFERABLE TO TAKE ON EMPTY STOMACH. SWALLOW WHOLE; DO NOT CRUSH OR CHEW. AVOID GRAPEFRUIT JUICE. 8) RENAL MULTIVIT W/1MG OR LESS FA TAB TAKE 1 TABLET BY MOUTH ACTIVE ONCE A DAY OBJECTIVE: Vital Signs Temperature: 98.3 F [36.8 C] (06/13/2024 10:41) Respiratory Rate: 17 (06/13/2024 10:41) Pulse Rate: 70 (06/13/2024 10:41) Blood Pressure: 196/75 (06/13/2024 10:41) HT: 72.0 in [182.9 cm] (12/13/2023 11:33) WT: 146.4 lb [66.41 kg] (06/13/2024 10:41) BMI: 19.9 96% (06/13/2024 10:41) Physical Exam General: NAD noted, A&Ox3, pleasant, appears stated age HEENT: NCAT, TM's clear, nares and oropharynx clear Neck: Supple with normal active ROM, without any lymphadenopathy Heart: RRR, no murmur, clicks, or rub Resp: Lungs CTA bilaterally, respirations even and unlabored Abdomen: Soft, non-distended, non-tender Ext: No clubbing, cyanosis, edema or obvious deformity : Moderate to large indirect left inguinal hernia non-reducable, minimal tenderness, no erythema Neuro: Grossly intact Skin: 4cm raised nodular lesion with a rough dried center, no surrounding erythema. Psych: Affect normal, answers questions appropriately throughout visit Assessment/Plan: 1) TIA hypertensive crisis- will go home and take his nifedipine and return for an exsional bx; retuen visit BP low 90s/50s asymptomatic. He is taking an 81mg Aspirin; will add plavix if continues with conrolled BP 2) Hypertension- will derease his nifedipine to 30mg in am, keep a BP log and recheck next week after dialysis 3) Skin lesion concerning for skin cancer- excisional bipsy as below 4) Left inguinal hernia- patinet is not interested in surgery at this time; understands neesd to go tothe ER if increased pain, constipations, vomiting, etc. Suspicious skin lesions upper back just right of midline- informed consent obtained and time out performed. Area cleaned with betadine solution and 10ml of 1% lidocaine used for local anesthesia SQ infiltrate. #11 blade scalpel used to excised out the lesions, which was sent to pathology for examination. Skin closed with 3 simple interrupted and a 3cm continuous running 5:0 nylon suture. Patient tolerated well with about 10 ml blood loss; triple antibiotic ointment with bandaid applied. Written instruction given on wound care. Follow-up: 2 weeks stitch removal and/or as needed. Discussed with patient that in the event of community imaging / testing being ordered in the future, once the imaging / testing has been completed, please notify PACT of completion at outside facility if not called with results within 1 week by a [facility] PACT member; this is due to intermittent lapses in notification of imaging completion within [facility]. All questions answered; agrees to plan of care. Follow up as listed above, annually, and as needed. Keep all appointments. Medications Reconciled. See AVS given to [place]. Time spent 30 minutes. /adarsh/ Humera Fortune MD [facility] Signed: 06/13/2024 14:04 07/04/2024 ADDENDUM STATUS: COMPLETED The presented to the clinic for Blood work. The reports that he is still taking his Nupharamine 60mg two tablets every morning. The reports that he took this medication this morning and his BP today in clinic was 138/69 Pulse 79. Asked the to keep a BP log and bring it into the clinic on Wednesday for a BP check. The is also asking about the Plavix that was talked about at his last visit. Let the know for now he should continue with his medications as he is taking them and we will discuss when Dr. Fortune comes back on Wednesday. The voiced understanding and had no further questions at this time. /adarsh/ Percy Wilkes RN,BSN [facility] Signed: 07/04/2024 10:09 07/04/2024 ADDENDUM STATUS: COMPLETED Report ---- SURGICAL PATHOLOGY ---- - - - - - - - - - - - - - - - - - - - - - - - - - - - - - - - - - - - - - - - - MEDICAL RECORD SURGICAL PATHOLOGY - - - - - - - - - - - - - - - - - - - - - - - - - - - - - - - - - - - - - - - - PATHOLOGY REPORT Accession No. SP [id number] - - - - - - - - - - - - - - - - - - - - - - - - - - - - - - - - - - - - - - - - Submitted by: Date obtained: Jun 13, 2024 - - - - - - - - - - - - - - - - - - - - - - - - - - - - - - - - - - - - - - - - Specimen (Received Jun 29, 2024 09:55): A. EXCISIONAL BIOPSY WITH MARGINS,RIGHT UPPER BACK/SHOULDER - - - - - - - - - - - - - - - - - - - - - - - - - - - - - - - - - - - - - - - - BRIEF CLINICAL HISTORY: Excisional biopsy with margins, right upper back/shoulder - - - - - - - - - - - - - - - - - - - - - - - - - - - - - - - - - - - - - - - - PREOPERATIVE DIAGNOSIS: - - - - - - - - - - - - - - - - - - - - - - - - - - - - - - - - - - - - - - - - OPERATIVE FINDINGS: Skin lesion on right upper back/shoulder - - - - - - - - - - - - - - - - - - - - - - - - - - - - - - - - - - - - - - - - POSTOPERATIVE DIAGNOSIS: Surgeon/physician: HUMERA FORTUNE MD =-=-=-=-=-=-=-=-=-=-=-=-=-=-=- =-=-=-=-=-=-=-=-=-=-=-=-=-=-=- =-=-=-=-=-=-=-=-=- = - - - - - - - - - - - - - - - - - - - - - - - - - - - - - - - - - - - - - - - - PATHOLOGY REPORT Accession No. SP [id number] - - - - - - - - - - - - - - - - - - - - - - - - - - - - - - - - - - - - - - - - GROSS DESCRIPTION: (Wing, 06-29-2024) The specimen is received in formalin, in a container labeled with the patient's name, full SSN and designated biopsy with margins right upper back/shoulder . It consists of one cleanign lepe unoriented skin ellipse tissue fragment that measures 3.0 x 2.0 cm at its base with an exophytic cleaning lepe lesion measuring 2.0 x 1.5 cm. The skin is excised to a depth of 0.9 cm. Also present within the same container a detahced fragment (likely from the surface defect of the lesion) that measures 1.0 x 1.0 x 0.3 cm. One edge is inked blue, the opposite edge red and the deep margin black. The specimen is submitted entirely in cassettes A1(tips), A2-A6 (remaining skin sequentially) and A7 (detached fragment bisected). 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 All margins are negative for tumor. 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 FREE OF TUMOR /es/ LORRAINE MATSON Pathologist Signed Jun 30, 2024@17:07 Performing Laboratory: Surgical Pathology Report Performed By: [facility] CLIA# [id number] [facility] [address] [place] [address] - - - - - - - - - - - - - - - - - - - - - - - - - - - - - - - - - - - - - - - - (End of report) LORRAINE MATSON MD [facility] Date Jun 30, 2024 - - - - - - - - - - - - - - - - - - - - - - - - - - - - - - - - - - - - - - - - MAGNO WAY STANDARD FORM 515 ID:[id number] SEX:M :1940 AGE: 84 LOC:&ALBSTACY PCP: Humera Fortune MD Facility: [facility] /es/ RADHA NIX LPN [facility] Signed: 07/04/2024 15:03 Receipt Acknowledged By: * AWAITING SIGNATURE * HUMERA FORTUNE [facility] Jun 20, 2024 09:47 AM ADDENDUM: LOCAL TITLE: Addendum STANDARD TITLE: ADDENDUM DATE OF NOTE: JUN 20, 2024@09:47:55 ENTRY DATE: JUN 20, 2024@09:47:56 AUTHOR: PERCY WILKES COSIGNER: URGENCY: STATUS: COMPLETED The presented to the clinic today thinking that he was going to have his stitches out. Informed him that it is next Wednesday. The also asked about getting a hernia belt. The has a 31-32 inch waist. The only one in the clinic today was a large. Let the know that I would order him a hernia belt and that he could pick it up at his nurse visit next week. The voiced understanding and had no further questions. Suicide Screen - V: C-SSRS Screening [place] Suicide Severity Rating Scale (C-SSRS) screener 1. Over the past month, have you wished you were or wished you could go to sleep and not wake up? No 2. Over the past month, have you had any actual thoughts of killing yourself? No 3. Over the past month, have you been thinking about how you might do this? Response not required due to responses to other questions. 4. Over the past month, have you had these thoughts and had some intention of acting on them? Response not required due to responses to other questions. 5. Over the past month, have you started to work out or worked out the details of how to kill yourself? Response not required due to responses to other questions. 6. If yes, at any time in the past month did you intend to carry out this plan? Response not required due to responses to other questions. 7. In your lifetime, have you ever done anything, started to do anything, or prepared to do anything to end your life (for example, collected pills, obtained a gun, gave away valuables, went to the roof but didn't jump)? No 8. If YES, was this within the past 3 months? Response not required due to responses to other questions. Depression Screening - V: Perform PHQ-2 A PHQ-2 screen was performed. The score was 0 which is a negative screen for depression. Over the past two weeks, how often have you been bothered by the following problems? 1. Little interest or pleasure in doing things Not at all 2. Feeling down, depressed, or hopeless Not at all /es/ Percy Wilkes RN,BSN [facility] Signed: 06/20/2024 09:56 Receipt Acknowledged By: 06/23/2024 10:30 /es/ MD [facility] --- Original Document --- 06/13/24 PRIMARY CARE NURSING PROGRESS NOTE (TEXT) NURSING PB: Established Patient MAGNO WAY IS A 84 YEAR OLD MALE BEING SEEN IN CLINIC JUN 13, 2024. REASON FOR VISIT: ER follow up for possible Stroke. Seen in the ER on 06/12/24Veteran reports that he was having trouble talking, I could not say the words I wanted to say. Reports that it started about 1630 and lasted till about 1800. Reports he also had a headache, and does not normally have headaches. reports that they did not find evidence of a stroke in the ER> The also asked about the US of the groin he was told was going to be ordered after /his last nurse visit on 05/30/24. The was told by the provider that it sounded like a hydro seal and that she would order US. The also reported that he had a spot on his back up by his right shoulder that had been there for 2-3 months but was growing. Are you receiving care anywhere other than the [place]? No HEALTH AND SURGICAL HISTORY: Does patient report using home oxygen? Yes; Current Oxygen Flow Rate: 4lt PRN CURRENT ACTIVE MEDICATIONS FOR REVIEW: Allergies/ADRs (Tool #5) FACILITY ALLERGY/ADR -------- [facility] ALLOPURINOL [facility] AMOXICILLIN [facility] CEPHALEXIN [facility] COLCHICINE [facility] FEBUXOSTAT [facility] IBUPROFEN [facility] PROBENECID [facility] NO KNOWN ALLERGIES [facility] NO KNOWN ALLERGIES [facility] CEPHALEXIN [facility] COLCHICINE [facility] IBUPROFEN [facility] IBUPROFEN Med. Reconciliation (Tool #1) INCLUDED IN THIS LIST: Alphabetical list of active outpatient prescriptions dispensed from this NM (local) and dispensed from another NM or DoD facility (remote) as well as inpatient orders (local pending and active), local clinic medications, locally documented non-VA medications, and local prescriptions that have or been discontinued in the past 90 days. Non-VA Meds Last Documented On: Feb 20, 2015 NOTE The display of VA prescriptions dispensed from another NM or [facility] facility (remote) is limited to active outpatient prescription entries matched to National Drug File at the originating site and may not include some items such as investigational drugs, compounds, etc. NOT INCLUDED IN THIS LIST: Medications self-entered by the patient into personal health records (i.e. [employer]) are NOT included in this list. Non-VA medications documented outside this NM, remote inpatient orders (regardless of status) and remote clinic medications are NOT included in this list. The patient and provider must always discuss medications the patient is taking, regardless of where the medication was dispensed or obtained. OUTPT ALBUTEROL 90MCG (CFC-F) 200D ORAL INHL (Status = Discontinued) INHALE 2 PUFFS ORAL INHALATION EVERY 4 HOURS NEEDED FOR COPD SHAKE WELL. RINSE MOUTHPIECE FREQUENTLY TO PREVENT CLOGGING. Rx# [id number] Last Released: 12/30/23 Qty/Days Supply: Rx Expiration Date: 03/27/24 Refills Remainin Indication: FOR COPD OUTPT ALBUTEROL 90MCG (CFC-F) 200D ORAL INHL (Status = Active) INHALE 2 PUFFS ORAL INHALATION EVERY 4 HOURS NEEDED FOR COPD SHAKE WELL. RINSE MOUTHPIECE FREQUENTLY TO PREVENT CLOGGING. Rx# [id number] Last Released: 03/21/24 Qty/Days Supply: Rx Expiration Date: 06/15/24 Refills Remainin Indication: FOR COPD OUTPT ALLOPURINOL 100MG TAB (Status = Active) TAKE ONE TABLET BY MOUTH ONCE A DAY FOR GOUT. TAKE WITH PLENTY OF WATER. Rx# [id number] Last Released: 03/21/24 Qty/Days Supply: 90 Rx Expiration Date: 08/11/24 Refills Remainin OUTPT ATORVASTATIN CALCIUM 40MG TAB (Status = Active) TAKE ONE-HALF TABLET BY MOUTH EVERY EVENING TO LOWER CHOLESTEROL Rx# [id number] Last Released: 04/17/24 Qty/Days Supply: 45 Rx Expiration Date: 08/11/24 Refills Remainin OUTPT CALCIUM ACETATE 667MG (CA 169MG) CAP (Status = Active) TAKE TWO CAPSULES BY MOUTH THREE TIMES A DAY WITH MEALS AND SNACKS FOR REDUCING PHOSPHORUS. Rx# [id number] Last Released: 06/12/24 Qty/Days Supply: 6010 Rx Expiration Date: 12/20/24 Refills Remainin OUTPT CARVEDILOL 25MG TAB (Status = ) TAKE ONE TABLET BY MOUTH TWICE A DAY FOR HEART. TAKE WITH FOOD. Rx# [id number] Last Released: 12/21/23 Qty/Days Supply: 180 Rx Expiration Date: 03/18/24 Refills Remainin OUTPT CARVEDILOL 25MG TAB (Status = Active) TAKE ONE TABLET BY MOUTH TWICE A DAY FOR HEART. TAKE WITH FOOD. Rx# [id number] Last Released: 06/12/24 Qty/Days Supply: 180 Rx Expiration Date: 06/07/25 Refills Remainin OUTPT LORATADINE 10MG TAB (Status = Active) TAKE ONE TABLET BY MOUTH ONCE A DAY ON EMPTY STOMACH Rx# [id number] Last Released: 06/08/24 Qty/Days Supply: Rx Expiration Date: 07/01/24 Refills Remainin OUTPT NIFEDIPINE (EQV-CC) 60MG SA TAB (Status = ) TAKE TWO TABLETS BY MOUTH ONCE A DAY FOR HEART/BLOOD PRESSURE. PREFERABLE TO TAKE ON EMPTY STOMACH. SWALLOW WHOLE; DO NOT CRUSH OR CHEW. AVOID GRAPEFRUIT JUICE. Rx# [id number] Last Released: 03/17/24 Qty/Days Supply: 180/ Rx Expiration Date: 05/18/24 Refills Remainin OUTPT NIFEDIPINE (EQV-CC) 60MG SA TAB (Status = Active) TAKE TWO TABLETS BY MOUTH ONCE A DAY FOR HEART/BLOOD PRESSURE. PREFERABLE TO TAKE ON EMPTY STOMACH. SWALLOW WHOLE; DO NOT CRUSH OR CHEW. AVOID GRAPEFRUIT JUICE. Rx# [id number] Last Released: 06/12/24 Qty/Days Supply: 180/90 Rx Expiration Date: 06/07/25 Refills Remainin OUTPT RENAL MULTIVIT W/1MG OR LESS FA TAB (Status = Active) TAKE 1 TABLET BY MOUTH ONCE A DAY Rx# [id number] Last Released: 12/21/23 Qty/Days Supply: 100/90 Rx Expiration Date: 08/11/24 Refills Remainin SUPPLIES PHARMACY TERMS AND POSSIBLE PATIENT ACTIONS INPT = NM inpatient order IV = NM intravenous medication OUTPT = NM outpatient prescription PHARMACY POSSIBLE PATIENT TERMS EXPLANATION ACTIONS -------- -- ACTIVE A prescription that can be If you have refills, filled at the local [place] pharmacy. you may request a refill of this prescription from your [place] pharmacy. CLINIC A medication you received during If you have questions a visit to a NM clinic or about this medication emergency department. contact your [place] healthcare team. DISCONTINUED A prescription your provider has Contact your NM stopped. It is no longer healthcare team if you available to be sent to you or need more of this picked up at the NM pharmacy medication. window. A prescription which is too old Contact your VA to fill. This does not refer to healthcare team if you the expiration date of the need more of this medication in the container. medication. NON-VA A medication that came from If this medication someplace other than a VA information is pharmacy. This may be a incorrect or out of prescription from either the VA date, please tell your or non VA providers that was VA healthcare team. filled outside the VA. Or, it may be an inmx-bvp-xwdcstf (OTC), herbal, dietary supplements or sample medication. ON HOLD An active prescription that will Contact your VA not be filled until pharmacy pharmacy when you need resolves the issue. more of this medication. PARKED An active prescription that will Contact your VA not be filled until the patient pharmacy when you need requests it. this medication. PENDING This prescription order has been If you have been sent to the pharmacy for review instructed to start and is not ready yet. this medication now, contact your VA pharmacy. SUSPENDED An active prescription that is Contact your VA not scheduled to be filled yet. pharmacy if you need You should receive it before this medication now. you run out. ====== Patient reports taking medications as ordered. The does report that he is told to hold his nifedipine when he has dialysis, that he takes one of his hydralazine 10mg that he still has at the house so his BP does not get too high. IS PATIENT TAKING ANY OVER THE COUNTER MEDICATIONS, SUCH VITAMINS OR HERBAL SUPPLEMENTS, INCLUDING ANY MEDICATIONS PRESCRIBED BY ANOTHER PHYSICIAN? No ALLERGIES/ADVERSE REACTIONS: IBUPROFEN Does patient have any new allergies to report since last visit? VITALS: TEMPERATURE: 97.5 F [36.4 C] (12/13/2023 11:33) BP: 176/76 (05/30/2024 10:36) RESP: 16 (05/30/2024 10:36) PULSE: 75 (05/30/2024 10:36) HT: 72.0 in [182.9 cm] (12/13/2023 11:33) WT: 152.8 lb [69.31 kg] (04/04/2024 10:00) BMI: 20.8 PAIN ASSESSMENT: (Most Recent Pain Score in Vitals Package: 1 (05/30/2024 10:36) ) The patient indicated that they and their close contacts have not traveled outside of the [place] in the past 21 days. The patient reports the following symptoms: No symptoms present The patient is not immunocompromised. The patient does not report having a history of Multi Drug Resistant Organism (MDRO) within the last five years. The patient does not report having been exposed to measles, chickenpox, or zoster in last 30 days. Patient reports no pain at this visit. Pain Score = 0. STRESS: Thank you for your service. Now let us serve you. At the [facility], we strive to provide you with exceptional health care that improves your health and well-being. Are you feeling sad, empty, or depressed? No Do you need to talk about things in your life that worry you or cause you stress? No Do you need to talk about personal problems, family problems, alcohol use, drug use, or mental or emotional illness? No SUICIDE SCREENING: The patient was asked, Over the past two weeks, how often have you been bothered by thoughts that you would be better off or of hurting yourself in some way? Not At All SPIRITUAL ASSESSMENT: Are there caodaism practices or spiritual concerns you want the plant production manager, your physician, and other health care team members to immediately know about? No Patient advised to call the clinic for any concerns, questions, or symptoms. Patient and/or caregiver verbalized understanding of plan of care. /adarsh/ Percy Wilkes RN,BSN [facility] Signed: 06/13/2024 15:22 PERCY WILKES Jun 13, 2024 10:49 AM PRIMARY CARE PROGRESS NOTE: LOCAL TITLE: PRIMARY CARE CLINIC PROGRESS NOTE PB STANDARD TITLE: PRIMARY CARE PROGRESS NOTE DATE OF NOTE: JUN 13, 2024@10:49 ENTRY DATE: JUN 13, 2024@10:49:20 AUTHOR: HUMERA FORTUNE EXP COSIGNER: URGENCY: STATUS: COMPLETED PRIMARY CARE CLINIC PROGRESS NOTE PB Has ADDENDA CC: ER follow-up HPI: Patient was seen in the ER yesterday for c/o slurred speach for about 45 minutes. He was hypertensive. He has been told to hold his nifedipine 60mg before his dialysis treatments because of hypotension. He for the las 4 visits or so has taken hydralazine 10mg though because his BP was too high in the 180s. Yesterday he had taken his hydralzine bfore dialysis and when in the ER his BP was elevated. He comes in today wihtou taking any of his morning meds. He also is concerned aobut a knot on his upper back he has had for 2 months. He also has a left inguinal hernia that bothers him about once a week but is resolved with tylenol. 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 Erwin? FAMILY HX: Mother is , age - 94 Father is , age - 87 Siblings - neg SOCIAL HX: MARITAL STATUS: , Keysha WORK HX: retired- multiple jobs HOBBIES: none TOBACCO: no ALCOHOL: occ beer DRUGS: no HX: BRANCH: [employer] 1957-. JOB/DUTIES: [employer] OVERSEAS STATIONS/DEPLOYMENTS: [facility] MAJOR ACCIDENTS OR INJURIES WHILE ON ACTIVE DUTY: SURGICAL HX: Bilateral knee replacements Stents in aorta Stent in bilateral ? femoral arteries Problem List 1) Chronic tophaceous gout (SNOMED CT 48043580) 2) Hip Pain 3) Benign essential hypertension (SNOMED CT 7728684) 4) Osteoarthritis (SNOMED CT 289902167) 5) Peripheral arterial occlusive disease 6) Hyperlipidemia (SNOMED CT 25719813) 7) Eczema 8) Renal failure 9) Hearing loss 10) Peripheral neuropathy 11) Generalized pruritus 12) Chronic diastolic heart failure 13) Aortic valve stenosis 14) Chronic hypoxemic respiratory failure 15) Coronary artery disease Active Outpatient Medications (including Supplies): Active Outpatient [...] MEALS AND SNACKS FOR REDUCING PHOSPHORUS. 5) CARVEDILOL 25MG TAB TAKE ONE TABLET BY MOUTH TWICE A DAY FOR ACTIVE HEART. TAKE WITH FOOD. 6) LORATADINE 10MG TAB TAKE ONE TABLET BY MOUTH ONCE A DAY ON ACTIVE EMPTY STOMACH 7) NIFEDIPINE (EQV-CC) 60MG SA TAB TAKE TWO TABLETS BY MOUTH ACTIVE ONCE A DAY FOR HEART/BLOOD PRESSURE. PREFERABLE TO TAKE ON EMPTY STOMACH. SWALLOW WHOLE; DO NOT CRUSH OR CHEW. AVOID GRAPEFRUIT JUICE. 8) RENAL MULTIVIT W/1MG OR LESS FA TAB TAKE 1 TABLET BY MOUTH ACTIVE ONCE A DAY OBJECTIVE: Vital Signs Temperature: 98.3 F [36.8 C] (06/13/2024 10:41) Respiratory Rate: 17 (06/13/2024 10:41) Pulse Rate: 70 (06/13/2024 10:41) Blood Pressure: 196/75 (06/13/2024 10:41) HT: 72.0 in [182.9 cm] (12/13/2023 11:33) WT: 146.4 lb [66.41 kg] (06/13/2024 10:41) BMI: 19.9 96% (06/13/2024 10:41) Physical Exam General: NAD noted, A&Ox3, pleasant, appears stated age HEENT: NCAT, TM's clear, nares and oropharynx clear Neck: Supple with normal active ROM, without any lymphadenopathy Heart: RRR, no murmur, clicks, or rub Resp: Lungs CTA bilaterally, respirations even and unlabored Abdomen: Soft, non-distended, non-tender Ext: No clubbing, cyanosis, edema or obvious deformity : Moderate to large indirect left inguinal hernia non-reducable, minimal tenderness, no erythema Neuro: Grossly intact Skin: 4cm raised nodular lesion with a rough dried center, no surrounding erythema. Psych: Affect normal, answers questions appropriately throughout visit Assessment/Plan: 1) TIA hypertensive crisis- will go home and take his nifedipine and return for an exsional bx; retuen visit BP low 90s/50s asymptomatic. He is taking an 81mg Aspirin; will add plavix if continues with conrolled BP 2) Hypertension- will derease his nifedipine to 30mg in am, keep a BP log and recheck next week after dialysis 3) Skin lesion concerning for skin cancer- excisional bipsy as below 4) Left inguinal hernia- patinet is not interested in surgery at this time; understands neesd to go tothe ER if increased pain, constipations, vomiting, etc. Suspicious skin lesions upper back just right of midline- informed consent obtained and time out performed. Area cleaned with betadine solution and 10ml of 1% lidocaine used for local anesthesia SQ infiltrate. #11 blade scalpel used to excised out the lesions, which was sent to pathology for examination. Skin closed with 3 simple interrupted and a 3cm continuous running 5:0 nylon suture. Patient tolerated well with about 10 ml blood loss; triple antibiotic ointment with bandaid applied. Written instruction given on wound care. Follow-up: 2 weeks stitch removal and/or as needed. Discussed with patient that in the event of community imaging / testing being ordered in the future, once the imaging / testing has been completed, please notify PACT of completion at outside facility if not called with results within 1 week by a [facility] member; this is due to intermittent lapses in notification of imaging completion within [facility]. All questions answered; agrees to plan of care. Follow up as listed above, annually, and as needed. Keep all appointments. Medications Reconciled. See AVS given to [place]. Time spent 30 minutes. /adarsh/ Humera Fortune MD [facility] Signed: 06/13/2024 14:04 06/28/2024 ADDENDUM STATUS: COMPLETED Can we call lab and ask about his pathology report which should be back by now. /es/ Humera Fortune MD [facility] Signed: 06/28/2024 09:35 Receipt Acknowledged By: 07/04/2024 15:03 /es/ RADHA NIX LPN [facility] 07/04/2024 ADDENDUM STATUS: COMPLETED The presented to the clinic for Blood work. The reports that he is still taking his Nupharamine 60mg two tablets every morning. The reports that he took this medication this morning and his BP today in clinic was 138/69 Pulse 79. Asked the to keep a BP log and bring it into the clinic on Wednesday for a BP check. The is also asking about the Plavix that was talked about at his last visit. Let the know for now he should continue with his medications as he is taking them and we will discuss when Dr. Fortune comes back on Wednesday. The voiced understanding and had no further questions at this time. /es/ Percy Wilkes RN,BSN [facility] Signed: 07/04/2024 10:09 07/04/2024 ADDENDUM STATUS: COMPLETED Report ---- SURGICAL PATHOLOGY ---- - - - - - - - - - - - - - - - - - - - - - - - - - - - - - - - - - - - - - - - - MEDICAL RECORD SURGICAL PATHOLOGY - - - - - - - - - - - - - - - - - - - - - - - - - - - - - - - - - - - - - - - - PATHOLOGY REPORT Accession No. SP [id number] - - - - - - - - - - - - - - - - - - - - - - - - - - - - - - - - - - - - - - - - Submitted by: Date obtained: Jun 13, 2024 - - - - - - - - - - - - - - - - - - - - - - - - - - - - - - - - - - - - - - - - Specimen (Received Jun 29, 2024 09:55): A. EXCISIONAL BIOPSY WITH MARGINS,RIGHT UPPER BACK/SHOULDER - - - - - - - - - - - - - - - - - - - - - - - - - - - - - - - - - - - - - - - - BRIEF CLINICAL HISTORY: Excisional biopsy with margins, right upper back/shoulder - - - - - - - - - - - - - - - - - - - - - - - - - - - - - - - - - - - - - - - - PREOPERATIVE DIAGNOSIS: - - - - - - - - - - - - - - - - - - - - - - - - - - - - - - - - - - - - - - - - OPERATIVE FINDINGS: Skin lesion on right upper back/shoulder - - - - - - - - - - - - - - - - - - - - - - - - - - - - - - - - - - - - - - - - POSTOPERATIVE DIAGNOSIS: Surgeon/physician: HUMERA FORTUNE MD =-=-=-=-=-=-=-=-=-=-=-=-=-=-=- =-=-=-=-=-=-=-=-=-=-=-=-=-=-=- =-=-=-=-=-=-=-=-=- = - - - - - - - - - - - - - - - - - - - - - - - - - - - - - - - - - - - - - - - - PATHOLOGY REPORT Accession No. SP [id number] - - - - - - - - - - - - - - - - - - - - - - - - - - - - - - - - - - - - - - - - GROSS DESCRIPTION: (Wing, 06-29-2024) The specimen is received in formalin, in a container labeled with the patient's name, full SSN and designated biopsy with margins right upper back/shoulder . It consists of one cleaning lepe unoriented skin ellipse tissue fragment that measures 3.0 x 2.0 cm at its base with an exophytic cleaning lepe lesion measuring 2.0 x 1.5 cm. The skin is excised to a depth of 0.9 cm. Also present within the same container a detahced fragment (likely from the surface defect of the lesion) that measures 1.0 x 1.0 x 0.3 cm. One edge is inked blue, the opposite edge red and the deep margin black. The specimen is submitted entirely in cassettes A1(tips), A2-A6 (remaining skin sequentially) and A7 (detached fragment bisected). 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 All margins are negative for tumor. 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 FREE OF TUMOR /es/ LORRAINE MATSON Pathologist Signed Jun 30, 2024@17:07 Performing Laboratory: Surgical Pathology Report Performed By: [address] CLIA# [id number] [address] [id number] - - - - - - - - - - - - - - - - - - - - - - - - - - - - - - - - - - - - - - - - (End of report) LORRAINE MATSON MD [facility] Date Jun 30, 2024 - - - - - - - - - - - - - - - - - - - - - - - - - - - - - - - - - - - - - - - - MAGNO WAY STANDARD FORM 515 ID:[id number] SEX:M :1940 AGE: 84 LOC:&YAMINI PCP: Humera Fortune MD Facility: [facility] /es/ ARDHA NIX LPN [facility] Signed: 07/04/2024 15:03 Receipt Acknowledged By: * AWAITING SIGNATURE * HUMERA FORTUNE [facility] Jun 13, 2024 10:15 AM PRIMARY CARE NURSING NOTE: LOCAL TITLE: PRIMARY CARE NURSING PROGRESS NOTE (TEXT) NURSING P STANDARD TITLE: PRIMARY CARE NURSING NOTE DATE OF NOTE: JUN 13, 2024@10:15 ENTRY DATE: JUN 13, 2024@10:15:30 AUTHOR: PERCY WILKES EXP COSIGNER: URGENCY: STATUS: COMPLETED PRIMARY CARE NURSING PROGRESS NOTE (TEXT) NURSING PB Has ADDENDA Established Patient MAGNO WAY IS A 84 YEAR OLD MALE BEING SEEN IN CLINIC JUN 13, 2024. REASON FOR VISIT: ER follow up for possible Stroke. Seen in the ER on 06/12/24Veteran reports that he was having trouble talking, I could not say the words I wanted to say. Reports that it started about 1630 and lasted till about 1800. Reports he also had a headache, and does not normally have headaches. reports that they did not find evidence of a stroke in the ER> The also asked about the US of the groin he was told was going to be ordered after /his last nurse visit on 05/30/24. The was told by the provider that it sounded like a hydro seal and that she would order US. The also reported that he had a spot on his back up by his right shoulder that had been there for 2-3 months but was growing. Are you receiving care anywhere other than the [place]? No HEALTH AND SURGICAL HISTORY: Does patient report using home oxygen? Yes; Current Oxygen Flow Rate: 4lt PRN CURRENT ACTIVE MEDICATIONS FOR REVIEW: Allergies/ADRs (Tool #5) FACILITY ALLERGY/ADR -------- [facility] ALLOPURINOL [facility] AMOXICILLIN [facility] CEPHALEXIN [facility] COLCHICINE [facility] FEBUXOSTAT [facility] IBUPROFEN [facility] PROBENECID [facility] NO KNOWN ALLERGIES [facility] NO KNOWN ALLERGIES [facility] CEPHALEXIN [facility] COLCHICINE [facility] IBUPROFEN [facility] IBUPROFEN Med. Reconciliation (Tool #1) INCLUDED IN THIS LIST: Alphabetical list of active outpatient prescriptions dispensed from this NM (local) and dispensed from another NM or DoD facility (remote) as well as inpatient orders (local pending and active), local clinic medications, locally documented non-VA medications, and local prescriptions that have or been discontinued in the past 90 days. Non-VA Meds Last Documented On: Feb 20, 2015 NOTE The display of VA prescriptions dispensed from another [place] or [facility] facility (remote) is limited to active outpatient prescription entries matched to National Drug File at the originating site and may not include some items such as investigational drugs, compounds, etc. NOT INCLUDED IN THIS LIST: Medications self-entered by the patient into personal health records (i.e. [employer]) are NOT included in this list. Non-VA medications documented outside this NM, remote inpatient orders (regardless of status) and remote clinic medications are NOT included in this list. The patient and provider must always discuss medications the patient is taking, regardless of where the medication was dispensed or obtained. OUTPT ALBUTEROL 90MCG (CFC-F) 200D ORAL INHL (Status = Discontinued) INHALE 2 PUFFS ORAL INHALATION EVERY 4 HOURS NEEDED FOR COPD SHAKE WELL. RINSE MOUTHPIECE FREQUENTLY TO PREVENT CLOGGING. Rx# [id number] Last Released: 12/30/23 Qty/Days Supply: Rx Expiration Date: 03/27/24 Refills Remainin Indication: FOR COPD OUTPT ALBUTEROL 90MCG (CFC-F) 200D ORAL INHL (Status = Active) INHALE 2 PUFFS ORAL INHALATION EVERY 4 HOURS NEEDED FOR COPD SHAKE WELL. RINSE MOUTHPIECE FREQUENTLY TO PREVENT CLOGGING. Rx# [id number] Last Released: 03/21/24 Qty/Days Supply: Rx Expiration Date: 06/15/24 Refills Remainin Indication: FOR COPD OUTPT ALLOPURINOL 100MG TAB (Status = Active) TAKE ONE TABLET BY MOUTH ONCE A DAY FOR GOUT. TAKE WITH PLENTY OF WATER. Rx# [id number] Last Released: 03/21/24 Qty/Days Supply: 90/ Rx Expiration Date: 08/11/24 Refills Remainin OUTPT ATORVASTATIN CALCIUM 40MG TAB (Status = Active) TAKE ONE-HALF TABLET BY MOUTH EVERY EVENING TO LOWER CHOLESTEROL Rx# [id number] Last Released: 04/17/24 Qty/Days Supply: 45/90 Rx Expiration Date: 08/11/24 Refills Remainin OUTPT CALCIUM ACETATE 667MG (CA 169MG) CAP (Status = Active) TAKE TWO CAPSULES BY MOUTH THREE TIMES A DAY WITH MEALS AND SNACKS FOR REDUCING PHOSPHORUS. Rx# [id number] Last Released: 06/12/24 Qty/Days Supply: 60/10 Rx Expiration Date: 12/20/24 Refills Remainin OUTPT CARVEDILOL 25MG TAB (Status = ) TAKE ONE TABLET BY MOUTH TWICE A DAY FOR HEART. TAKE WITH FOOD. Rx# [id number] Last Released: 12/21/23 Qty/Days Supply: 180 Rx Expiration Date: 03/18/24 Refills Remainin OUTPT CARVEDILOL 25MG TAB (Status = Active) TAKE ONE TABLET BY MOUTH TWICE A DAY FOR HEART. TAKE WITH FOOD. Rx# [id number] Last Released: 06/12/24 Qty/Days Supply: 180/ Rx Expiration Date: 06/07/25 Refills Remainin OUTPT LORATADINE 10MG TAB (Status = Active) TAKE ONE TABLET BY MOUTH ONCE A DAY ON EMPTY STOMACH Rx# [id number] Last Released: 06/08/24 Qty/Days Supply: Rx Expiration Date: 07/01/24 Refills Remainin OUTPT NIFEDIPINE (EQV-CC) 60MG SA TAB (Status = ) TAKE TWO TABLETS BY MOUTH ONCE A DAY FOR HEART/BLOOD PRESSURE. PREFERABLE TO TAKE ON EMPTY STOMACH. SWALLOW WHOLE; DO NOT CRUSH OR CHEW. AVOID GRAPEFRUIT JUICE. Rx# [id number] Last Released: 03/17/24 Qty/Days Supply: 180/90 Rx Expiration Date: 05/18/24 Refills Remainin OUTPT NIFEDIPINE (EQV-CC) 60MG SA TAB (Status = Active) TAKE TWO TABLETS BY MOUTH ONCE A DAY FOR HEART/BLOOD PRESSURE. PREFERABLE TO TAKE ON EMPTY STOMACH. SWALLOW WHOLE; DO NOT CRUSH OR CHEW. AVOID GRAPEFRUIT JUICE. Rx# [id number] Last Released: 06/12/24 Qty/Days Supply: 180/90 Rx Expiration Date: 06/07/25 Refills Remainin OUTPT RENAL MULTIVIT W/1MG OR LESS FA TAB (Status = Active) TAKE 1 TABLET BY MOUTH ONCE A DAY Rx# [id number] Last Released: 12/21/23 Qty/Days Supply: 100/90 Rx Expiration Date: 08/11/24 Refills Remainin SUPPLIES PHARMACY TERMS AND POSSIBLE PATIENT ACTIONS INPT = NM inpatient order IV = NM intravenous medication OUTPT = NM outpatient prescription PHARMACY POSSIBLE PATIENT TERMS EXPLANATION ACTIONS -------- -- ACTIVE A prescription that can be If you have refills, filled at the local [place] pharmacy. you may request a refill of this prescription from your [place] pharmacy. CLINIC A medication you received during If you have questions a visit to a NM clinic or about this medication emergency department. contact your [place] healthcare team. DISCONTINUED A prescription your provider has Contact your VA stopped. It is no longer healthcare team if you available to be sent to you or need more of this picked up at the [place] pharmacy medication. window. A prescription which is too old Contact your VA to fill. This does not refer to healthcare team if you the expiration date of the need more of this medication in the container. medication. NON-VA A medication that came from If this medication someplace other than a VA information is pharmacy. This may be a incorrect or out of prescription from either the VA date, please tell your or non VA providers that was VA healthcare team. filled outside the VA. Or, it may be an jkjh-gaw-bdicljg (OTC), herbal, dietary supplements or sample medication. ON HOLD An active prescription that will Contact your VA not be filled until pharmacy pharmacy when you need resolves the issue. more of this medication. PARKED An active prescription that will Contact your VA not be filled until the patient pharmacy when you need requests it. this medication. PENDING This prescription order has been If you have been sent to the pharmacy for review instructed to start and is not ready yet. this medication now, contact your VA pharmacy. SUSPENDED An active prescription that is Contact your VA not scheduled to be filled yet. pharmacy if you need You should receive it before this medication now. you run out. ====== Patient reports taking medications as ordered. The does report that he is told to hold his nifedipine when he has dialysis, that he takes one of his hydralazine 10mg that he still has at the house so his BP does not get too high. IS PATIENT TAKING ANY OVER THE COUNTER MEDICATIONS, SUCH VITAMINS OR HERBAL SUPPLEMENTS, INCLUDING ANY MEDICATIONS PRESCRIBED BY ANOTHER PHYSICIAN? No ALLERGIES/ADVERSE REACTIONS: IBUPROFEN Does patient have any new allergies to report since last visit? VITALS: TEMPERATURE: 97.5 F [36.4 C] (12/13/2023 11:33) BP: 176/76 (05/30/2024 10:36) RESP: 16 (05/30/2024 10:36) PULSE: 75 (05/30/2024 10:36) HT: 72.0 in [182.9 cm] (12/13/2023 11:33) WT: 152.8 lb [69.31 kg] (04/04/2024 10:00) BMI: 20.8 PAIN ASSESSMENT: (Most Recent Pain Score in Vitals Package: 1 (05/30/2024 10:36) ) The patient indicated that they and their close contacts have not traveled outside of the [place] in the past 21 days. The patient reports the following symptoms: No symptoms present The patient is not immunocompromised. The patient does not report having a history of Multi Drug Resistant Organism (MDRO) within the last five years. The patient does not report having been exposed to measles, chickenpox, or zoster in last 30 days. Patient reports no pain at this visit. Pain Score = 0. STRESS: Thank you for your service. Now let us serve you. At the [facility], we strive to provide you with exceptional health care that improves your health and well-being. Are you feeling sad, empty, or depressed? No Do you need to talk about things in your life that worry you or cause you stress? No Do you need to talk about personal problems, family problems, alcohol use, drug use, or mental or emotional illness? No SUICIDE SCREENING: The patient was asked, Over the past two weeks, how often have you been bothered by thoughts that you would be better off or of hurting yourself in some way? Not At All SPIRITUAL ASSESSMENT: Are there caodaism practices or spiritual concerns you want the plant production manager, your physician, and other health care team members to immediately know about? No Patient advised to call the clinic for any concerns, questions, or symptoms. Patient and/or caregiver verbalized understanding of plan of care. /adarsh/ Percy Wilkes RN,BSN [facility] Signed: 06/13/2024 15:22 06/20/2024 ADDENDUM STATUS: COMPLETED The presented to the clinic today thinking that he was going to have his stitches out. Informed him that it is next Wednesday. The also asked about getting a hernia belt. The has a 31-32 inch waist. The only one in the clinic today was a large. Let the know that I would order him a hernia belt and that he could pick it up at his nurse visit next week. The voiced understanding and had no further questions. Suicide Screen - V: C-SSRS Screening [place] Suicide Severity Rating Scale (C-SSRS) screener 1. Over the past month, have you wished you were or wished you could go to sleep and not wake up? No 2. Over the past month, have you had any actual thoughts of killing yourself? No 3. Over the past month, have you been thinking about how you might do this? Response not required due to responses to other questions. 4. Over the past month, have you had these thoughts and had some intention of acting on them? Response not required due to responses to other questions. 5. Over the past month, have you started to work out or worked out the details of how to kill yourself? Response not required due to responses to other questions. 6. If yes, at any time in the past month did you intend to carry out this plan? Response not required due to responses to other questions. 7. In your lifetime, have you ever done anything, started to do anything, or prepared to do anything to end your life (for example, collected pills, obtained a gun, gave away valuables, went to the roof but didn't jump)? No 8. If YES, was this within the past 3 months? Response not required due to responses to other questions. Depression Screening - V: Perform PHQ-2 A PHQ-2 screen was performed. The score was 0 which is a negative screen for depression. Over the past two weeks, how often have you been bothered by the following problems? 1. Little interest or pleasure in doing things Not at all 2. Feeling down, depressed, or hopeless Not at all /adarsh/ Percy Wilkes RN,BSN [facility] Signed: 06/20/2024 09:56 Receipt Acknowledged By: * AWAITING SIGNATURE * HUMERA FORTUNE JOHANNA R [facility]
--- OUTSIDE RECORDS SUMMARY | 2024-06-29 09:04 | XMS_ITS | Encounter Summary ---
Author Name [facility] [facility] [place] Address [address] [place] [address] Care Team Providers Care Control Clerk Subassembly Name Role Phone JACKELINE THANH Primary Care Provider Unavailab REDDY Villanueva Primary Care Provider Unavailabl e LEORA PINA Unavailable Unavailable LEORA RIVAS Unavailable Unavailable LAKSHMI GARCIA Unavailable Unavail able LISHA ARCE Unavailable Unavailable ANTIONE, JUNE Unavailable Unavailable MARLENA TORIBIO Unavailable Unavailable HUMERA [...] PART A Mar 14, 2004 PART A [id number] PATIENT MEDICARE (WNR) MEDICARE (M) PART A Mar 14, 2004 PART A [id number] [facility] [phone] PATIENT MEDICARE (WNR) MEDICARE (M) PART A Mar 14, 2004 PART A [id number] [facility] [phone] PATIENT MEDICARE (WNR) MEDICARE (M) PART A Mar 14, 2004 PART A [id number] [phone] PATIENT MEDICARE (WNR) MEDICARE (M) PART A Mar 14, 2004 PART A [id number] [facility] LOWMAGNO Moore PATIENT MEDICARE (WNR) MEDICARE (M) PART A Mar 14, 2004 PART A [id number] [facility] LOWMAGNO Moore PATIENT MEDICARE (WNR) MEDICARE (M) PART A Mar 14, 2004 PART A [id number] [phone] PATIENT MEDICARE (WNR) MEDICARE (M) PART A Mar 14, 2004 PART A [id number] [facility] [address] PATIENT Selected Encounter This section includes the information on record at [place] for the Encounter. Date/Time Encounter Type Encounter Description Reason Pro vider Source Jun 29, 2024 02:04 PM Outpatient Encounter ADMIN PAT ACTIVTIES (MASNONCT) IHE Encounter Template Text not used by CO Plan of Treatment: Future Appointments (+ 6 months) and Future Tests (+/- 45 days) The Plan of Treatment section includes future care activities for the patient from all [place] treatmentfacilities. This section includes future appointments and future orders which are active, pending or scheduled. Future Appointments This section includes appointments that were scheduled to occur 6 months from the date of the Encounter, up to a maximum of 20 appointments. The data comes from all [place] treatment facilities. Appointment Date/Time Appointment Type Appointme nt Facility Name Jul 04, 2024 09:20 AM AMBULATORY - MEDICINE [facility] Jul 10, 2024 10:00 AM AMBULATORY - MEDICINE [facility] Aug 14, 2024 09:30 AM AMBULATORY - MEDICINE [facility] Aug 21, 2024 11:20 AM AMBUL[facility]ORY - SURGERY [facility] Aug 21, 2024 01:15 PM AMBULATORY - MEDICINE [facility] Aug 24, 2024 01:45 PM AMBULATORY - MEDICINE [facility] Sep 01, 2024 09:30 AM AMBULATORY - MEDICINE [facility] Sep 01, 2024 09:45 AM AMBULATORY - MEDICINE [facility] Sep 11, 2024 01:45 PM AMBULATORY - MEDICINE [facility] October 24, 2024 01:40 PM AMBULATORY - SURGERY [facility] Nov 13, 2024 02:45 PM AMBULATORY - MEDICINE [facility] Active, Pending, and Scheduled Orders This section includes a listing of several types of active, pending, and scheduled orders, including clinic medications orders, diagnostic test orders, procedure orders and consult orders; where the start date of the order is 45 days before the date of the Encounter or 45 days after the date of theEncounter. The data comes from all [place] treatment facilities. Test Date/Time Test Type Test Details Facility Name May 15, 2024 09:29 AM Consult Order [facility] [id number] Cons Catalyst Impregnator's Choice [facility] Lab Results: +/- 30 days of the encounter This section includes the Chemistry and Hematology Lab Results on record with [place] for the patient. Radiology Reports and Pathology Reports are provided separately, in subsequent sections. Lab Results This section contains the Chemistry/Hematology Results that were resulted 30 days before or 30 daysafter the date of the Encounter. Date/Time Source Result Type Result - Unit Interpretation Reference Range Specimen Type Comment Jul 04, 2024 09:23 AM [facility] CB HGA1C BLOOD Specimen Type: BLOOD No comment entered. Ordering Provider: HUMERA FORTUNE Report Released Date/Time: Jul 19, 2023 09:44 AM Reporting Lab: [place] [facility] [address] [place] [address] Performing Lab: [place] [facility] [address] [place] [address] HGA1C 4.1 4.0-6.0 Jul 04, 2024 09:23 AM [facility] TSH (MA-PB) SERUM Specimen Typ e: SERUM No comment entered. Ordering Provider: HUMERA FORTUNE Report Released Date/Time: Jul 19, 2023 09:44 AM Reporting Lab: [place] [facility] [address] [place] [address] Performing Lab: [place] [facility] [address] [place] [address] TSH 3.286 u[IU]/mL 0.47-5 Jul 04, 2024 09:23 AM [facility] CBOC CHOLESTEROL PANEL (PB) PLASMA Specimen Type: P LASMA No comment entered. Ordering Provider: HUMERA FORTUNE Report Released Date/Time: Jul 19, 2023 09:44 AM Reporting Lab: [place] [facility] [address] [place] [address] Performing Lab: [place] [facility] [address] [place] [address] CHOLESTEROL 119 mg/dL 0-200 TRIGLYCERIDE 73 mg/dL 0-150 CALCULATED LDL 46.4 mg/dL HDL(New) 58.0 mg/dL H >40 HDL % OF TOTAL CHOLESTEROL (PB) 48.7 >25 Jul 04, 2024 09:23 AM [facility] CB COMPREHENSIVE METABOLIC PANEL PLASMA Specimen Type: PLASMA No comment entered. Ordering Provider: HUMERA FORTUNE Report Released Date/Time: Jul 19, 2023 09:44 AM Reporting Lab: [place] [facility] [address] [place] [address] Performing Lab: [place] [facility] [address] [place] [address] CREATININE 2.82 mg/dL H 0.7-1.3 UREA NITROGEN [...] (CKD-EPI 2020) Jul 04, 2024 09:22 AM [facility] CBC BLOOD Specimen Type: BLOOD No comment entered. Ordering Provider: HUMERA FORTUNE Report Released Date/Time: Jul 19, 2023 09:44 AM Reporting Lab: [place] [facility] [address] [place] [address] Performing Lab: [place] [facility] [address] [place] [address] WBC 8.7 10*3/uL 3.6-11.2 RBC 4.23 10*6/uL [...] GRANS, AUTO ABS 0.03 10*3/uL 0. 00-0.05 Social History: Smoking Status (Most current) and Tobacco Use (All prior to encounter date) This section includes the most current, and the historical, smoking and tobacco- related health factors from the [place] facility where the Encounter took place. Current Smoking Status This section includes the most current smoking, or tobacco-related health factor, from the [place] facility where the Encounter took place. Date/Time Current Smoking Status Comment Blade ity Jul 19, 2023 09:00 AM CO-TOBACCO FORMER USER [facility] CB Tobacco Use History This section includes a history of the smoking, or tobacco-related health factors, that were collected on or before the date of the Encounter. The data comes from the [place] facility where the Encounter took place. Date/Time Smoking Status/Tobacco Use Comment F acility Jul 19, 2023 09:00 AM VA-TOBACCO QUIT 15 YRS OR MORE [facility] Jul 27, 2022 10:00 AM VA-TOBACCO FORMER USER [facility] Jul 27, 2022 10:00 AM VA-TOBACCO QUIT 15 YRS OR MORE [facility] CB Jul 29, 2021 09:30 AM VA-TOBACCO NEVER USED [facility] CB Jul 23, 2020 08:32 AM VA-TOBACCO FORMER USER [facility] CB Jul 23, 2020 08:32 AM VA-TOBACCO QUIT 15 YRS OR MORE [facility] CB Sep 25, 2010 10:27 AM QUIT TOBACCO >7 YEARS AGO [facility] October 17, 2009 01:55 PM QUIT TOBACCO >12 MO & <7 YRS AGO [facility] Advance Directives: All historical and current Section Date Range: From patient's date of to the date document was created. This section includes ALL of a patient's completed or amended VA Advance and Rescinded Directives. The entries below indicate that a directive exists for the patient, but an actual copy is not included with this document. The data comes from all [place] facilities. Date Advance Directives Provider Source Jun 03, 2012 ADVANCE DIRECTIVE RYAN TAPIA [facility] May 28, 2012 ADVANCE DIRECTIVE JAMARI [facility] Apr 14, 2012 ADVANCE DIRECTIVE DISCUSSION RYAN TAPIA [facility] Dec 02, 2010 ADVANCE DIRECTIVE DISCUSSION RYAN TAPIA [facility] Pathology Reports: +/- 30 days [...] the Encounter. The data comes from all [place] treatment facilities. Date/Time Pathology Report Provider Source Jun [...] Performing Laboratory: Surgical Pathology Report Performed By: [facility], [facility] [address] [facility]# [id number] [address] [place] [address] [place] [address] $FTR - - - - - - - - - - - - - - - - - - - - - - - - - - - - - - - - - - - - - - - - (End of report) LORRAINE MATSON MD [facility] Date Jun 30, 2024 - - - - - - - - - - - - - - - - - - - - - - - - - - - - - - - - - - - - - - - - [address] STANDARD FORM 515 ID:[id number] SEX:M :[id number] AGE: 84 LOC:&ALBSTACY PCP: Humera Fortune MD /adarsh/ LORRAINE MATSON Pathologist Signed: 06/30/2024 17:07 LORRAINE MATSON [facility] Encounter Notes: All associated encounter notes This section contains the clinical notes associated to the Encounter. Date/Time Encounter Note(s) Provider Source Jun 29, 2024 02:04 PM GENERAL MEDICINE N OTE: LOCAL TITLE: General Note PB STANDARD TITLE: GENERAL MEDICINE NOTE DATE OF NOTE: JUN 29, 2024@14:04 ENTRY DATE: JUN 29, 2024@14:04:46 AUTHOR: SOUMYA GARDINER EXP COSIGNER: URGENCY: STATUS: COMPLETED Eye Care At-Risk Screen - L,N,PH,U: Patient identified to be at risk for the following eye condition(s): MACULAR DEGENERATION: Macular Degeneration Risk Factors Information: Reminder Term: CO-AMD RISK FACTORS Encounter Diagnosis: 12/13/2023@11:30 I25.10 (ICD-10-CM) Atherosclerotic Heart Disease of [place] Coronary Artery without Angina Pectoris rank: PRIMARY Prov. Narr. - Coronary artery disease (SNOMED CT [id number]) Action: No Referral Ordered: Eye exam completed elsewhere by an Chick Grader or Test Equipment Mechanic Exam Information: Date: December 22, 2023 Findings/Comment Normal Location: [facility] /adarsh/ SOUMYA GARDINER Telehealth Clinical Assayer Signed: 06/29/2024 14:05 SOUMYA GARDINER [facility]
--- OUTSIDE RECORDS SUMMARY | 2024-07-10 05:00 | XMS_ITS | Encounter Summary ---
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 Name Role Phone JACKELINEVINNYTHANH Primary Care Provider [...] PART A Mar 14, 2004 PART A [id number] [phone] PATIENT MEDICARE (WNR) MEDICARE (M) PART A Mar 14, 2004 PART A [id number] [phone] PATIENT MEDICARE (WNR) MEDICARE (M) PART A Mar 14, 2004 PART A [id number] [facility] [phone] PATIENT MEDICARE (WNR) MEDICARE (M) PART A Mar 14, 2004 PART A [id number] PATIENT MEDICARE (WNR) MEDICARE (M) PART A Mar 14, 2004 PART A [id number] [facility] LOWMAGNO Moore PATIENT MEDICARE (WNR) MEDICARE (M) PART A Mar 14, 2004 PART A [id number] [facility] LOWMAGNO Moore PATIENT MEDICARE (WNR) MEDICARE (M) PART A Mar 14, 2004 PART A [id number] [phone] LOWMAGNO Moore PATIENT MEDICARE (WNR) MEDICARE (M) PART A Mar 14, 2004 PART A [id number] [facility] [address] PATIENT Selected Encounter This section includes the information on record at [place] for the Encounter. Date/Time Encounter Type Encounter Description Reason Provider Source Jul 10, 2024 10:00 AM OFFICE O/P EST MOD 30 MIN PRIMARY CARE/MEDICINE ICD-10-CM I10 Essential (primary) hypertension GREG FORTUNE Y IHTeresa Encounter Template Text not used by [place] Assessments - Encounter Diagnoses This section includes the primary and secondary diagnoses documented for the Encounter. Date/Time Primary/Secondary Diagnosis Diagnosis Name Provider Source Jul 18, 2024 10:42 AM PRIMARY Essential (primary) hypertension HUMERA FORTUNE [facility] Jul 18, 2024 10:42 AM SECONDARY Insomnia, unspecified HUMERA FORTUNE CB Jul 18, 2024 10:42 AM SECONDARY Unilateral post-traumatic osteoarthritis, right hip [facility] FORT[facility] Jul 18, 2024 10:42 AM SECONDARY Unspecified kidney failure HUMERA FORTUNE [facility] Plan of Treatment: Future Appointments (+ [...] 20 appointments. The data comes from all [place] treatment facilities. Appointment Date/Time Appointment Type Appointme nt Facility Name Aug 14, 2024 09:30 AM [place]ORY [place] [facility] Aug 21, 2024 11:20 AM [place] [facility] Aug 21, 2024 01:15 PM [facility] [place] [facility] Aug 24, 2024 01:45 PM [facility] [place] [facility] Sep 01, 2024 09:30 AM [facility] [place] [facility] Sep 01, 2024 09:45 AM [facility] [place] [facility] Sep 11, 2024 01:45 PM [facility] [place] [facility] October 24, 2024 01:40 PM [facility] [place] [facility] Nov 13, 2024 02:45 PM [facility] [place] [facility] Lab Results: +/- 30 days of the encounter This section includes the Chemistry and Hematology Lab Results on record with [place] for the patient. Radiology Reports and Pathology Reports are provided separately, in subsequent sections. Lab Results This section contains the Chemistry/Hematology Results that were resulted 30 days before or 30 daysafter the date of the Encounter. Date/Time Source Result Type Result - Unit Interpretation Reference Range Specimen Type Comment Jul 04, 2024 09:23 AM [facility] HGA1C BLOOD Specimen Type: BLOOD No comment entered. Ordering Provider: HUMERA FORTUNE Report Released Date/Time: Jul 19, 2023 09:44 AM Reporting Lab: [place] [facility] [address] [place] [address] Performing Lab: [place] [facility] [address] [place] [address] HGA1C 4.1 4.0-6.0 Jul 04, 2024 09:23 AM [facility] TSH (MA-PB) SERUM Specimen Typ e: SERUM No comment entered. Ordering Provider: HUMERA FORTUNE Report Released Date/Time: Jul 19, 2023 09:44 AM Reporting Lab: [place] [facility] [address] [place] [address] Performing Lab: [place] [facility] [address] [place] [address] TSH 3.286 u[IU]/mL 0.47-5 Jul 04, 2024 09:23 AM [facility] CHOLESTEROL PANEL (PB) PLASMA Specimen Type: P SEGUNDO No comment entered. Ordering Provider: HUMERA FORTUNE Report Released Date/Time: Jul 19, 2023 09:44 AM Reporting Lab: [place] [facility] [address] [place] [address] Performing Lab: [place] [facility] [address] [place] [address] CHOLESTEROL 119 mg/dL 0-200 TRIGLYCERIDE 73 mg/dL 0-150 CALCULATED LDL 46.4 mg/dL HDL(New) 58.0 mg/dL H >40 HDL % OF TOTAL CHOLESTEROL (PB) 48.7 >25 Jul 04, 2024 09:23 AM [facility] COMPREHENSIVE METABOLIC PANEL PLASMA Specimen Type: PLASMA No comment entered. Ordering Provider: HUMERA FORTUNE Report Released Date/Time: Jul 19, 2023 09:44 AM Reporting Lab: [place] [facility] [address] [place] [address] Performing Lab: [place] [facility] [address] [place] [address] CREATININE 2.82 mg/dL H 0.7-1.3 UREA NITROGEN [...] (CKD-EPI 2020) Jul 04, 2024 09:22 AM [facility] CBC BLOOD Specimen Type: BLOOD No comment entered. Ordering Provider: HUMERA FORTUNE Report Released Date/Time: Jul 19, 2023 09:44 AM Reporting Lab: [place] [facility] [address] [place] [address] Performing Lab: [facility] [address] [place] [address] WBC 8.7 10*3/uL 3.6-11.2 RBC 4.23 10*6/uL [...] Pain Height Weight Body Mass Index Source Jul 10, 2024 10:49 AM 97.6 66 153/70 17 99 3 147.6 20 [facility] Social History: Smoking Status (Most current) and Tobacco Use (All prior to encounter date) This section includes the most current, and the historical, smoking and tobacco- related health factors from the [place] facility where the Encounter took place. Current Smoking Status This section includes the most current smoking, or tobacco-related health factor, from the [place] facility where the Encounter took place. Date/Time Current Smoking Status Comment Blade dewey Jul 10, 2024 10:00 AM VA-TOBACCO USE FORMER CIGARETTES [facility] Tobacco Use History This section includes a history of the smoking, or tobacco-related health factors, that were collected on or before the date of the Encounter. The data comes from the [place] facility where the Encounter took place. Date/Time Smoking Status/Tobacco Use Comment F acility Jul 10, 2024 10:00 AM VA-TOBACCO USE FORMER CIGARETTES [facility] Jul 19, 2023 09:00 AM VA-TOBACCO FORMER USER [facility] Jul 19, 2023 09:00 AM VA-TOBACCO QUIT 15 YRS OR MORE [place] [facility] Jul 27, 2022 10:00 AM VA-TOBACCO FORMER USER [facility] Jul 27, 2022 10:00 AM VA-TOBACCO QUIT 15 YRS OR MORE [facility] Jul 29, 2021 09:30 AM VA-TOBACCO NEVER USED [place] [facility] Jul 23, 2020 08:32 AM VA-TOBACCO FORMER USER [place] [facility] Jul 23, 2020 08:32 AM VA-TOBACCO QUIT 15 YRS OR MORE [facility] Sep 25, 2010 10:27 AM QUIT TOBACCO >7 YEARS AGO [facility] October 17, 2009 01:55 PM QUIT TOBACCO >12 MO & <7 YRS AGO [facility] Advance Directives: All historical and current Section Date Range: From patient's date of to the date document was created. This section includes ALL of a patient's completed or amended [place] Advance and Rescinded Directives. The entries below indicate that a directive exists for the patient, but an actual copy is not included with this document. The data comes from all [place] facilities. Date Advance Directives Provider Source Jun 03, 2012 ADVANCE DIRECTIVE RYAN TAPIA [facility] May 28, 2012 ADVANCE DIRECTIVE JAMARI BRISENOU [facility] Apr 14, 2012 ADVANCE DIRECTIVE DISCUSSION RYAN TAPIAS [facility] Dec 02, 2010 ADVANCE DIRECTIVE DISCUSSION RYAN TAPIA [facility] Pathology Reports: +/- 30 days of [...] the Encounter. The data comes from all [place] treatment facilities. Date/Time Pathology Report Provider Source [...] FEATURES ALL MARGINS FREE OF TUMOR /es/ NECMARIANNA MATSON Pathologist Signed Jun 30, 2024@17:07 Performing Laboratory: Surgical Pathology Report Performed By: [facility], [facility] [address] [facility]# [id number] [facility] [address] [place] [address] $FTR - - - - - - - - - - - - - - - - - - - - - - - - - - - - - - - - - - - - - - - - (End of report) LORRAINE MATSON MD [facility] Date Jun 30, 2024 - - - - - - - - - - - - - - - - - - - - - - - - - - - - - - - - - - - - - - - - [address] STANDARD FORM 515 ID:[id number] SEX:M :[id number] AGE: 84 LOC:&ALBRE PCP: Humera Fortune MD /adarsh/ LORRAINE MATSON Pathologist Signed: 06/30/2024 17:07 LORRAINE MATSON [facility] Encounter Notes: All associated encounter notes This section contains the clinical notes associated to the Encounter. Date/Time Encounter Note(s) Provider Source Jul 10, 2024 10:51 AM PRIMARY CARE PROGR ESS NOTE: LOCAL TITLE: PRIMARY CARE CLINIC PROGRESS NOTE PB STANDARD TITLE: PRIMARY CARE PROGRESS NOTE DATE OF NOTE: JUL 10, 2024@10:51 ENTRY DATE: JUL 10, 2024@10:51:40 AUTHOR: HUMERA FORTUNE EXP COSIGNER: URGENCY: STATUS: COMPLETED PRIMARY CARE CLINIC PROGRESS NOTE PB Has ADDENDA SUBJECTIVE: MAGNO WAY is a 84 years old MALE. HPI: Presents to the clinic today for a periodic health maintenance visit. Last seen June 13, 2024 for ER follow-up due to blood pressure issues He reports he is no longer having difficulty with low blood pressures actually they have been a little high prior to taking his medication and he has taken his medications as prescribed below. Last visit 3 weeks ago he has only had to use his hydroxyzine twice and his blood pressure has been much better controlled it seems to be highest early in the mornings. He reports he has significant trouble sleeping he has tried melatonin in the past without any results. He just cannot get his mind to shut down to sleep. In addition he does report for the last for 5 days pain in his right hip he thinks he just kind twisted wrong with it using his cane reports to Tylenol twice a day is helping significantly. He denies any heart palpitations or strokelike symptoms. 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 Erwin? FAMILY HX: Mother is , age - 94 Father is , age - 87 Siblings - neg SOCIAL HX: MARITAL STATUS: , Keysha WORK HX: retired- multiple jobs HOBBIES: none TOBACCO: no ALCOHOL: occ beer DRUGS: no HX: BRANCH: [employer] . JOB/DUTIES: [employer] OVERSEAS STATIONS/DEPLOYMENTS: [employer] MAJOR ACCIDENTS OR INJURIES WHILE ON ACTIVE DUTY: SURGICAL HX: Bilateral knee replacements Stents in aorta Stent in bilateral ? 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 TAKE WITH PLENTY OF WATER. 2) ATORVASTATIN CALCIUM 40MG TAB TAKE ONE-HALF TABLET BY MOUTH ACTIVE EVERY EVENING TO LOWER CHOLESTEROL 3) CALCIUM ACETATE 667MG (CA 169MG) CAP TAKE TWO CAPSULES BY ACTIVE MOUTH THREE TIMES A DAY WITH MEALS AND SNACKS FOR REDUCING PHOSPHORUS. 4) CARVEDILOL 25MG TAB TAKE ONE TABLET BY MOUTH TWICE A DAY FOR ACTIVE HEART. TAKE WITH FOOD. 5) NIFEDIPINE (EQV-CC) 60MG SA TAB TAKE TWO TABLETS BY MOUTH ACTIVE ONCE A DAY FOR HEART/BLOOD PRESSURE. PREFERABLE TO TAKE ON EMPTY STOMACH. SWALLOW WHOLE; DO NOT CRUSH OR CHEW. AVOID GRAPEFRUIT JUICE. 6) RENAL MULTIVIT W/1MG OR LESS FA TAB TAKE 1 TABLET BY MOUTH ACTIVE ONCE A DAY Allergies: IBUPROFEN Review of Systems: as per HPI and Systemic: Denies fatigue, fever, chills, or weight loss CV: Denies chest pain, palpitations Pulmonary: Denies hemoptysis, Shortness of breath, dyspnea on exertion GI: Denies constipation, bloody stools, diarrhea, indigestion, or n/v Ext: Denies any swelling Neuro: Denies slurred speech or dizziness Skin: Denies abnormal lesions; denies any new rashes PSYCH: Denies SI/HI; denies nightmares OBJECTIVE: Vital Signs Temperature: 97.6 F [36.4 C] (07/10/2024 10:49) Respiratory Rate: 17 (07/10/2024 10:49) Pulse Rate: 66 (07/10/2024 10:49) Blood Pressure: 153/70 (07/10/2024 10:49) HT: 72.0 in [182.9 cm] (12/13/2023 11:33) WT: 147.6 lb [66.95 kg] (07/10/2024 10:49) BMI: 20.1 99% (07/10/2024 10:49) RA Physical Exam General: NAD noted, A&Ox3, pleasant, appears stated age HEENT: NCAT, TM's clear, nares and oropharynx clear Neck: Supple with normal active ROM, without any lymphadenopathy Heart: RRR, IV/ murmur, clicks, or rub Resp: Lungs CTA bilaterally, respirations even and unlabored Ext: No clubbing, cyanosis, edema or obvious deformity Skin: Warm, pink, and dry, no rashes Neuro: Grossly intact Psych: Affect normal, answers questions appropriately throughout visit A/P: ASSESSMENT and PLAN Health Maintenance: Labs reviewed with patient and printout given to patient. Discussed preventative health to include diet and exercise as well as immunizations. Hypertension- Squamous cell skin cancer-new concerning lesion on left congregational area; we will set up for biopsy Left inguinal hernia- patient is not interested in surgery at this time; understands neesd to go to the ER if increased pain, constipations, vomiting, etc. Constipation-instructed on supportive care with a bolus dose of MiraLAX Gout-controlled with allopurinol no recent issues Right hip Pain/osteoarthritis-continu e with supportive care topical rubs using the cane for support at this time declines any further intervention will continue with Tylenol as needed Peripheral arterial occlusive disease-stable status post stent Hyperlipidemia-controlled on atorvastatin Eczema-stable Renal failure-on hemodialysis Hearing loss-stable Peripheral neuropathy-stable Generalized pruritus-stable secondary to renal failure Chronic diastolic heart failure-stable Aortic valve stenosis-stable Chronic hypoxemic respiratory failure- stable has pulse ox to monitor at home Coronary artery disease-no current angina on nifedipine carvedilol aspirin 81mg daily Stable. Discussed medications with patient; med rec completed. Continue current regimen as prescribed by PCP and specialists. RTC as needed if developing any new or worsening symptoms. Please notify PACT with medication changes or for orders coordination as needed if seen by a specialist in the future. Will f/u with patient once updated labs / imaging / testing received; otherwise f/u as listed below. Follow-up: 12 months with fasting labs prior to appointment and/or as needed. Discussed with patient that [...] appointments. Medications Reconciled. See AVS given to . Time spent 30 minutes. /adarsh/ Humera Fortune MD [facility] Primary Care Signed: 07/10/2024 11:26 07/18/2024 ADDENDUM STATUS: COMPLETED Addendum updated A/P 1) Hypertension with recent TIA secondary to his hypertension-will continue with his prescribed blood pressure medicine and nifedipine and continue with hydralazine only if needed if systolic blood pressure goes above 160. 2) Insomnia will start on trazodone 50 mg at bedtime titrating up as needed and tolerates /adarsh/ Humear Fortune MD [facility] Primary Care Signed: 07/18/2024 10:39 HUMERA FORTUNE [facility] Jul 10, 2024 10:33 AM PRIMARY CARE KAYODE MARTINEZ NOTE: LOCAL TITLE: PRIMARY CARE NURSING PROGRESS NOTE (TEXT) NURSING P STANDARD TITLE: PRIMARY CARE NURSING NOTE DATE OF NOTE: JUL 10, 2024@10:33 ENTRY DATE: JUL 10, 2024@10:34:10 AUTHOR: PERCY WILKES COSIGNER: URGENCY: STATUS: COMPLETED Established Patient MAGNO WAY IS A 84 YEAR OLD MALE BEING SEEN IN CLINIC JUL 10, 2024. == == REASON FOR VISIT: [place] is here for his annual visit. Pain in the left hip started Wednesday or Wednesday. Are you receiving care any where other than the [place]? No HEALTH AND SURGICAL HISTORY: Does patient report using home oxygen? No CURRENT ACTIVE MEDICATIONS FOR REVIEW: Allergies/ADRs (Tool #5) FACILITY ALLERGY/ADR -------- [facility] ALLOPURINOL [facility] AMOXICILLIN [facility] CEPHALEXIN [facility] COLCHICINE [facility] FEBUXOSTAT [facility] IBUPROFEN [facility] PROBENECID [facility] NO KNOWN ALLER[facility]IES [facility] NO KNOWN ALLERGIES [facility] CEPHALEXIN [facility] COLCHICINE [facility] IBUPROFEN [facility] IBUPROFEN Med. Reconciliation (Tool #1) INCLUDED IN THIS LIST: Alphabetical list of active outpatient prescriptions dispensed from this [place] (local) and dispensed from another [place] or [facility] facility (remote) as well as inpatient orders (local pending and active), local clinic medications, locally documented non-VA medications, and local prescriptions that have or been discontinued in the past 90 days. Non-VA Meds Last Documented On: Feb 20, 2015 NOTE The display of VA prescriptions dispensed from another [place] or [facility] facility (remote) is limited to active outpatient prescription entries matched to National Drug File at the originating site and may not include some items such as investigational drugs, compounds, etc. NOT INCLUDED IN THIS LIST: Medications self-entered by the patient into personal health records (i.e. [employer]) are NOT included in this list. Non-VA medications documented outside this [place], remote inpatient orders (regardless of status) and remote clinic medications are NOT included in this list. The patient and provider must always discuss medications the patient is taking, regardless of where the medication was dispensed or obtained. OUTPT ALBUTEROL 90MCG (CFC-F) 200D ORAL INHL (Status = ) INHALE 2 PUFFS ORAL INHALATION EVERY 4 HOURS NEEDED FOR COPD SHAKE WELL. RINSE MOUTHPIECE FREQUENTLY TO PREVENT CLOGGING. Rx# [id number] Last Released: 03/21/24 Qty/Days Supply: Rx Expiration Date: 06/15/24 Refills Remainin Indication: FOR COPD OUTPT ALLOPURINOL 100MG TAB (Status = Active) TAKE ONE TABLET BY MOUTH ONCE A DAY FOR GOUT. TAKE WITH PLENTY OF WATER. Rx# [id number] Last Released: 07/06/24 Qty/Days Supply: Rx Expiration Date: 08/11/24 Refills Remainin OUTPT ATORVASTATIN CALCIUM 40MG TAB (Status = Active) TAKE ONE-HALF TABLET BY MOUTH EVERY EVENING TO LOWER CHOLESTEROL Rx# [id number] Last Released: 04/17/24 Qty/Days Supply: Rx Expiration Date: 08/11/24 Refills Remainin OUTPT CALCIUM ACETATE 667MG (CA 169MG) CAP (Status = Active) TAKE TWO CAPSULES BY MOUTH THREE TIMES A DAY WITH MEALS AND SNACKS FOR REDUCING PHOSPHORUS. Rx# [id number] Last Released: 06/12/24 Qty/Days Supply: Rx Expiration Date: 12/20/24 Refills Remainin OUTPT CARVEDILOL 25MG TAB (Status = Active) TAKE ONE TABLET BY MOUTH TWICE A DAY FOR HEART. TAKE WITH FOOD. Rx# [id number] Last Released: 06/12/24 Qty/Days Supply: 180 Rx Expiration Date: 06/07/25 Refills Remainin OUTPT LORATADINE 10MG TAB (Status = ) TAKE ONE TABLET BY MOUTH ONCE A DAY ON EMPTY STOMACH Rx# [id number] Last Released: 06/08/24 Qty/Days Supply: Rx Expiration Date: 07/01/24 Refills Remainin OUTPT NIFEDIPINE (EQV-CC) 60MG SA TAB (Status = ) TAKE TWO TABLETS BY MOUTH ONCE A DAY FOR HEART/BLOOD PRESSURE. PREFERABLE TO TAKE ON EMPTY STOMACH. SWALLOW WHOLE; DO NOT CRUSH OR CHEW. AVOID GRAPEFRUIT JUICE. Rx# [id number] Last Released: 03/17/24 Qty/Days Supply: 18090 Rx Expiration Date: 05/18/24 Refills Remainin OUTPT NIFEDIPINE (EQV-CC) 60MG SA TAB (Status = Active) TAKE TWO TABLETS BY MOUTH ONCE A DAY FOR HEART/BLOOD PRESSURE. PREFERABLE TO TAKE ON EMPTY STOMACH. SWALLOW WHOLE; DO NOT CRUSH OR CHEW. AVOID GRAPEFRUIT JUICE. Rx# [id number] Last Released: 06/12/24 Qty/Days Supply: 180/ Rx Expiration Date: 06/07/25 Refills Remainin OUTPT RENAL MULTIVIT W/1MG OR LESS FA TAB (Status = Active) TAKE 1 TABLET BY MOUTH ONCE A DAY Rx# [id number] Last Released: 06/26/24 Qty/Days Supply: 100/90 Rx Expiration Date: 08/11/24 Refills Remainin SUPPLIES PHARMACY TERMS AND POSSIBLE PATIENT ACTIONS INPT = [place] inpatient order IV = [place] intravenous medication OUTPT = [place] outpatient prescription PHARMACY POSSIBLE PATIENT TERMS EXPLANATION ACTIONS -------- ----- ACTIVE A prescription that can be If you have refills, filled at the local [place] pharmacy. you may request a refill of this prescription from your [place] pharmacy. CLINIC A medication you received during If you have questions a visit to a [place] clinic or about this medication emergency department. contact your [place] healthcare team. DISCONTINUED A prescription your provider has Contact your [facility] stopped. It is no longer healthcare team if you available to be sent to you or need more of this picked up at the [place] pharmacy medication. window. A prescription which is [...] the VA. Or, it may be an qysn-dws-nrocjqz (OTC), herbal, dietary supplements or sample medication. [...] before this medication now. you run out. Patient reports taking meds other than as directed/ordered: Is out of Loratadine IS PATIENT TAKING ANY OVER THE COUNTER MEDICATIONS, SUCH VITAMINS OR HERBAL SUPPLEMENTS, INCLUDING ANY MEDICATIONS PRESCRIBED BY ANOTHER PHYSICIAN? No ALLERGIES/ADVERSE REACTIONS: IBUPROFEN Does patient have any new allergies to report since last visit? NO VITALS: TEMPERATURE: 98.3 F [36.8 C] (06/13/2024 10:41) BP: 92/39 (06/13/2024 12:38) RESP: 17 (06/13/2024 10:41) PULSE: 69 (06/13/2024 12:38) HT: 72.0 in [182.9 cm] (12/13/2023 11:33) WT: 146.4 lb [66.41 kg] (06/13/2024 10:41) BMI: 19.9 PAIN ASSESSMENT: (Most Recent Pain Score in Vitals Package: 0 (06/13/2024 10:41) ) The patient indicated that they and [...] chickenpox, or zoster in last 30 days. STRESS: Thank you for your service. Now let us serve you. At the [facility], we strive to provide you with exceptional health care that improves your health and well-being. Are you feeling sad, empty, or depressed? Yes Do you need to talk about things [...] Not At All SPIRITUAL ASSESSMENT: Are there evangelical practices or spiritual concerns you want the rn lvn, your physician, and other health care team members to immediately know about? No Patient advised to call the clinic for any concerns, questions, or symptoms. Patient and/or caregiver verbalized understanding of plan of care. FALL RISK OP PB: MARCO FALL RISK ASSESSMENT Have you experienced any falls within the last 12 months: 0 = No Secondary Dx: 0 = No Ambulatory Aid: 5 = Crutches/Walker/Cane Gait/Transferrin = Weak Mental status: 0 = Oriented to own ability Medications: 0 = No high risk meds TOTAL SCORE: 10 Score <30 - patient IS NOT at risk for falls. No action at this time. Reassess annually or if needed. Fall Documentation No - Patient did not experience a fall within the last year RHS Screen - VS: RHS Screen Session Format: Face to Face Environmental Check Upon inquiry, the individual reports that the environment is safe to proceed. Informed Consent to Screen and Document The individual consents to proceed with screening. The individual consents to documentation of responses. PRIMARY SCREEN: In the past 12 months, how often did a current or former intimate partner (e.g., boyfriend, girlfriend, , , sexual partner): 1. Scream or curse at you Never 2. Insult or talk down to you Never 3. Threaten you with harm Never 4. Physically hurt you Never 5. Force or pressure you to have sexual contact against your will, or when you were unable to say no Never The HITS tool (items 1-4 above) is [place] copyright protected by Timur Brown MD, and the user has full rights to use it throughout the [place] system. PRIMARY SCREEN RESULT: The Primary Screen is NEGATIVE. The individual answered never to all forms of IPV above (i.e., answered never to all 5 items) The individual accepts education and/or resources: Other: Not needed EDUCATION: Other: Not needed COVID-19 Immunization - L,N,P,PH,U: Alcohol Use Screen (AUDIT-C) - V: Alcohol Screen: SCREEN FOR ALCOHOL (AUDIT-C) An alcohol screening test (AUDIT-C) was negative (score=1). 1. How often did you have a drink containing alcohol in the past year? Consider a drink to be a 12 ounce can or bottle of regular beer, 8 ounces of malt liquor, a 5 ounce glass of table wine, or a 1.5 ounce shot of liquor (like scotch, gin, or vodka). Monthly or less 2. How many drinks containing alcohol did you have on a typical day when you were drinking in the past year? One or two drinks 3. How often did you have six or more drinks on one occasion in the past year? Never Tobacco Use Screening - AT,DE,L,M,N,P,PH,PS,RT,S,U: The patient is a former cigarette smoker. The patient has never used other types of tobacco. Advanced Directive Screen/Command And Control Officer: ADVANCE DIRECTIVE SCREENING: I asked if the patient has an advance directive, and determined that: Patient has an Advance Directive. Patient does not wish to make any changes to the Advance Directive at this time. ADVANCE DIRECTIVE NOTIFICATION I did not provide the patient with written notification about advance directives because Pt declined Level of understanding: Good Influenza Immunization - L,N,P,PH,U: Deferral / Refusal The patient declines to receive the recommended dose of seasonal influenza vaccine. Immunization: INFLUENZA, UNSPECIFIED FORMULATION Refusal Reason: PATIENT DECISION Patient refuses all immunization(s) in the FLU group Date Documented: 07/10/24 10:55 Td / Tdap Immunization - L,N,P,PH,U: The patient declines to receive the recommended dose of Td/Tdap vaccine. Immunization: TD(ADULT) UNSPECIFIED FORMULATION Refusal Reason: PATIENT DECISION Patient refuses all immunization(s) in the Td group Comment: Educated the that if he were to get a deep cut or be in an accident he should make sure and get a tetanus shot at that time. The voiced understanding. Date Documented: 07/10/24 10:55 Pneumococcal Conjugate Vaccine (PCV15/PCV20) - L,N,P,PH,U: Refuses PCV vaccine Immunization: PNEUMOCOCCAL CONJUGATE, UNSPECIFIED FORMULATION Refusal Reason: PATIENT DECISION Patient refuses all immunization(s) in the PneumoPCV group Date Documented: 07/10/24 10:55 Pain Assessment: - PAIN ASSESSMENT: .. Patient is reporting some pain. PAIN SCORE TODAY: 3 Patient's self identified pain goal: 0 Weight Control/Nutrition Counseling: * Patient declined nutrition and weight screen counseling at this encounter. Herpes Zoster (Shingles) Vaccine - L,N,P,PH,U: The patient declines to receive the recommended dose of zoster (shingles) vaccine. Immunization: ZOSTER RECOMBINANT Refusal Reason: PATIENT DECISION Patient refuses all immunization(s) in the ZOSTER group Date Documented: 07/10/24 10:56 Patient/Nurse Interview: * * Patient stated that adequate information was received regarding the condition and/or treatment. Comment: If you have any questions please call the clinic Per [facility] Directive 1605.06, wristband documentation: Patient wristband was removed and destroyed by (staff name) Chip Wilkes RN and placed in the designated [employer] bin. /adarsh/ Percy Wilkes RN,BSN LAILA Levin Signed: 07/10/2024 10:58 PERCY WILKES
--- OUTSIDE RECORDS SUMMARY | 2024-08-14 04:30 | XMS_ITS | Encounter Summary ---
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 Name Role Phone JACKELINEVINNYTHANH Primary Care Provider [...] PART A Mar 14, 2004 PART A [id number] [phone] PATIENT MEDICARE (WNR) MEDICARE (M) PART A Mar 14, 2004 PART A [id number] [phone] PATIENT MEDICARE (WNR) MEDICARE (M) PART A Mar 14, 2004 PART A [id number] [facility] [phone] PATIENT MEDICARE (WNR) MEDICARE (M) PART A Mar 14, 2004 PART A [id number] [phone] PATIENT MEDICARE (WNR) MEDICARE (M) PART A Mar 14, 2004 PART A [id number] [facility] LOWMAGNO Moore PATIENT MEDICARE (WNR) MEDICARE (M) PART A Mar 14, 2004 PART A [id number] [facility] [id number] PATIENT MEDICARE (WNR) MEDICARE (M) PART A Mar 14, 2004 PART A [id number] [phone] [address] Moore PATIENT MEDICARE (WNR) MEDICARE (M) PART A Mar 14, 2004 PART A [id number] [facility] [phone] PATIENT Selected Encounter This section includes the information on record at [place] for the Encounter. Date/Time Encounter Type Encounter Description Reason Provider Source Aug 14, 2024 09:30 AM OFFICE O/P EST LOW 20 MIN PRIMARY CARE/MEDICINE ICD-10-CM D49.2 Neoplasm of unsp behavior of bone, soft tissue, and skin HUMERA FORTUNE Encounter Template Text not used by [place] Assessments - Encounter Diagnoses This section includes the primary and secondary diagnoses documented for the Encounter. Date/Time Primary/Secondary Diagnosis Diagnosis Name Provider Source October 17, 2024 06:24 AM PRIMARY Neoplasm of unsp behavior of bone, soft tissue, and skin HUMERA FORTUNE [facility] October 17, 2024 06:24 AM SECONDARY Chronic respiratory failure with hypoxia HUMERA FORTUNE [facility] October 17, 2024 06:24 AM SECONDARY Essential (primary) hypertension HUMERA FORTUNE [facility] October 17, 2024 06:24 AM SECONDARY Insomnia, unspecified HUMERA FORTUNE [facility] October 17, 2024 06:24 AM SECONDARY Unil inguinal hernia, w/o obst or gangr, not spcf as recur HUMERA FORTUNE [facility] Plan of Treatment: Future Appointments (+ 6 months) and Future Tests (+/- 45 days) The Plan of Treatment section includes future care activities for the patient from all [place] [facility] [place] This section includes future appointments and future orders which are active, pending or scheduled. Future Appointments This section includes appointments that were scheduled to occur 6 months from the date of the Encounter, up to a maximum of 20 appointments. The data comes from all [place] treatment facilities. Appointment Date/Time Appointment Type Appointme nt Facility Name Aug 21, 2024 11:20 AM AMBULATORY - SURGERY POP[facility] R [facility] Aug 21, 2024 01:15 PM AMBULATORY - MEDICINE [facility] Aug 24, 2024 01:45 PM AMBULATORY - MEDICINE [facility] Sep 01, 2024 09:30 AM AMBULATORY - MEDICINE [facility] Sep 01, 2024 09:45 AM AMBULATORY - MEDICINE [facility] Sep 11, 2024 01:45 PM AMBULATORY - MEDICINE [facility] October 24, 2024 01:40 PM AMBULATORY - SURGERY POP[facility] Nov 13, 2024 02:45 PM AMBULATORY - MEDICINE [facility] Vital Signs: All taken on the encounter date This section contains inpatient and outpatient Vital Signs collected on the date of the Encounter. Date/Time Temperature Pulse Blood Pressure Respiratory Rate SP02 Pain Height Weight Body Mass Index Source Aug 14, 2024 09:36 AM 98.1 64 123/46 17 97 0 147.3 20 [facility] Social History: Smoking Status (Most current) and Tobacco Use (All prior to encounter date) This section includes the most current, and the historical, smoking and tobacco- related health factors from the [place] facility where the Encounter took place. Current Smoking Status This section includes the most current smoking, or tobacco-related health factor, from the [place] facility where the Encounter took place. Date/Time Current Smoking Status Comment Facil ity Jul 10, 2024 10:00 AM VA-TOBACCO USE FORMER CIGARETTES [facility] Tobacco Use History This section includes a history of the smoking, or tobacco-related health factors, that were collected on or before the date of the Encounter. The data comes from the [place] facility where the Encounter took place. Date/Time Smoking Status/Tobacco Use Comment F acility Jul 10, 2024 10:00 AM [place]-TOBACCO USE FORMER CIGARETTES [facility] Jul 19, 2023 09:00 AM VA-TOBACCO FORMER USER [facility] Jul 19, 2023 09:00 AM VA-TOBACCO QUIT 15 YRS OR MORE [facility] Jul 27, 2022 10:00 AM VA-TOBACCO FORMER USER [facility] Jul 27, 2022 10:00 AM VA-TOBACCO QUIT 15 YRS OR MORE [facility] Jul 29, 2021 09:30 AM VA-TOBACCO NEVER USED [facility] Jul 23, 2020 08:32 AM VA-TOBACCO FORMER USER [facility] Jul 23, 2020 08:32 AM VA-TOBACCO QUIT 15 YRS OR MORE [facility] Sep 25, 2010 10:27 AM QUIT TOBACCO >7 YEARS AGO [facility] October 17, 2009 01:55 PM QUIT TOBACCO >12 MO & <7 YRS AGO [facility] Advance Directives: All historical and current Section Date Range: From patient's date of to the date document was created. This section includes ALL of a patient's completed or amended [place] Advance and Rescinded Directives. The entries below indicate that a directive exists for the patient, but an actual copy is not included with this document. The data comes from all [place] facilities. Date Advance Directives Provider Source Jun 03, 2012 ADVANCE DIRECTIVE RYAN TAPIA DELORES RIZWAN ELLIS [facility] May 28, 2012 ADVANCE DIRECTIVE JAMARI BRISENO FF [facility] Apr 14, 2012 ADVANCE DIRECTIVE DISCUSSION RYAN TAPIA [facility] Dec 02, 2010 ADVANCE DIRECTIVE DISCUSSION RYAN TAPIA [facility] Pathology Reports: +/- 30 days of the [...] the Encounter. The data comes from all [place] treatment facilities. Date/Time Pathology Report Provider Source Sep 05, 2024 12:30 PM LR SURGICAL PATHOL OGY REPORT: LOCAL TITLE: LR SURGICAL PATHOLOGY REPORT STANDARD TITLE: PATHOLOGY PROCEDURE NOTE DATE OF NOTE: SEP 05, 2024@12:30:48 ENTRY DATE: SEP 05, 2024@12:30:48 AUTHOR: SARA EMERSON: URGENCY: STATUS: COMPLETED $APHDR - - - [...] - - PATHOLOGY REPORT Accession No. SP [id number] - - - - - - - - - - - - - - - - - - - - - - - - - - - - - - - - - - - - - - - - $TEXT Submitted by: Date obtained: Sep 01, 2024 - - - - - - - - - - - - - - - - - - - - - - - - - - - - - - - - - - - - - - - - Specimen (Received Sep 04, 2024 09:59): A. EXCISIONAL BIOPSY WITH MARGINS OF LESION ON LEFT EVANGELICAL - - - - - - - - - - - - - - - - - - - - - - - - - - - - - - - - - - - - - - - - BRIEF CLINICAL HISTORY: Excisional biopsy of lesion on left anabaptist - - - - - - - [...] - - - - - OPERATIVE FINDINGS: - - - - - - - - - - - - - - - - - - - - - - - - - - - - - - - - - - - - - - - - POSTOPERATIVE DIAGNOSIS: Surgeon/physician: HUMERA FORTUNE MD =-=-=-=-=-=-=-=-=-=-=-=-=-=-=- =-=-=-=-=-=-=-=-=-=-=-=-=-=-=- =-=-=-=-=-=-=-=-=-= - - - - - - - - - - - - - - - - - - - - - - - - - - - - - - - - - - - - - - - - PATHOLOGY REPORT Accession No. SP [id number] - - - - - - - - - - - - - - - - - - - - - - - - - - - - - - - - - - - - - - - - GROSS DESCRIPTION: Jennifer Brower, 09/04/24 Received in formalin in a container labeled with the patient's full name, SSN, and Excisional Biopsy with Margins Left Anabaptist is a nodular, dark red-brown skin excisional biopsy measuring 2.0 x 1.7 x 1.0 cm. The resection margin is inked, and the tissue is serial sectioned and submitted entirely in A1(tips)- A3. MICROSCOPIC EXAM: [Dr. Jacob Emerson 09-05-2024] Sections from the left anabaptist show a biopsy composed primarily of a large eschar with abundant entrapped bacterial forms and necrosis. Small fragments of viable epidermis are seen with mild keratinocyte pleomorphism. Extensive inflammation and necrosis is seen immediately below these areas of epidermis. DIAGNOSIS: SKIN, LEFT EVANGELICAL, EXCISIONAL BIOPSY - ESCHAR WITH ABUNDANT BACTERIAL FORMS (SEE MICROSCOPIC DESCRIPTION AND COMMENT) Comment: The biopsy shows primarily a large eschar with bacterial forms. Portions of epidermis with actinic change are noted along with extensive necrosis and inflammation. Correlation with culture results is recommended. /adarsh/ SARA EMERSON MD DERMATOLOGY & DERMATOPATHOLOGY Signed Sep 05, 2024@12:30 Performing Laboratory: Surgical Pathology Report Performed By: [facility] [address]# [id number] [address] [place] [phone] $FTR - - - - - - - - - - - - - - - - - - - - - - - - - - - - - - - - - - - - - - - - (End of report) SARA EMERSON MD oj Date Sep 05, 2024 - - - - - - - - - - - - - - - - - - - - - - - - - - - - - - - - - - - - - - - - LOWMAGNO Moore STANDARD FORM 515 ID:[id number] SEX:M :1940 AGE: 84 LOC:&ALBRE PCP: Humera Fortune MD /adarsh/ SARA EMERSON MD DERMATOLOGY & DERMATOPATHOLOGY Signed: 09/05/2024 12:30 SARA EMERSON [facility] Aug 22, 2024 11:52 AM LR SURGICAL PATHOL OGY REPORT: LOCAL TITLE: LR SURGICAL PATHOLOGY REPORT STANDARD TITLE: PATHOLOGY PROCEDURE NOTE DATE OF NOTE: AUG 22, 2024@11:52:30 ENTRY DATE: AUG 22, 2024@11:52:30 AUTHOR: SARA EMERSON EXP COSIGNER: URGENCY: STATUS: COMPLETED $APHDR - [...] - PATHOLOGY REPORT Accession No. SP [id number] - - - - - - - - - - - - - - - - - - - - - - - - - - - - - - - - - - - - - - - - $TEXT Submitted by: Date obtained: Aug 15, 2024 - - - - - - - - - - - - - - - - - - - - - - - - - - - - - - - - - - - - - - - - Specimen (Received Aug 18, 2024 10:04): A. EXCISIONAL BIOPSY WITH MARGINS,LEFT EVANGELICAL - - - - - - - - - - - - - - - - - - - - - - - - - - - - - - - - - - - - - - - - BRIEF CLINICAL HISTORY: Lesion left anabaptist - - - - - - - - - - - - - - - - - - - - - - - - - - - - - - - - - - - - - - - - PREOPERATIVE DIAGNOSIS: Lesion left anabaptist - - - - - - - - - - - - - - - - - - - - - - - - - - - - - - - - - - - - - - - - OPERATIVE FINDINGS: Lesion left anabaptist - - - - - - - - - - - - - - - - - - - - - - - - - - - - - - - - - - - - - - - - POSTOPERATIVE DIAGNOSIS: Lesion left anabaptist Surgeon/physician: HUMERA FORTUNE MD =-=-=-=-=-=-=-=-=-=-=-=-=-=-=- =-=-=-=-=-=-=-=-=-=-=-=-=-=-=- =-=-=-=-=-=-=-=-=-= - - - - - - - - - - - - - - - - - - - - - - - - - - - - - - - - - - - - - - - - PATHOLOGY REPORT Accession No. SP [id number] - - - - - - - - - - - - - - - - - - - - - - - - - - - - - - - - - - - - - - - - GROSS DESCRIPTION: Corina Beck, 08/18/2024 Received in formalin in a container labeled with the patient's full name, SSN, and Left Anabaptist is an unoriented skin ellipse measuring 1.8 x 1.0 cm and excised to a depth of 0.5 cm. On the skin surface is a white, raised lesion. The resection margin is inked, and the tissue is serially sectioned and submitted entirely in A1 (tips) through A2 (remainder of tissue). MICROSCOPIC EXAM: [Dr. Jacob Emerson 08-22-2024] Microscopic examination substantiates the cited diagnosis(es). DIAGNOSIS: SKIN, LEFT EVANGELICAL, EXCISIONAL BIOPSY - HYPERTROPHIC ACTINIC KERATOSIS /es/ SARA EMERSON MD DERMATOLOGY & DERMATOPATHOLOGY Signed Aug 22, 2024@11:52 Performing Laboratory: Surgical Pathology Report [facility]: [facility] [id number] [facility] [address] [place] [phone] $FTR - - - - - - - - - - - - - - - - - - - - - - - - - - - - - - - - - - - - - - - - (End of report) SARA EMERSON MD oj Date Aug 22, 2024 - - - - - - - - - - - - - - - - - - - - - - - - - - - - - - - - - - - - - - - - [address] STANDARD FORM 515 ID:[id number] SEX:M :1940 AGE: 84 LOC:&ALBRE PCP: Humera Fortune MD /es/ SARA EMERSON MD DERMATOLOGY & DERMATOPATHOLOGY Signed: 08/22/2024 11:52 SARA EMERSON [facility] Encounter Notes: All associated encounter notes This section contains the clinical notes associated to the Encounter. Date/Time Encounter Note(s) Provider Source Aug 14, 2024 09:46 AM PRIMARY CARE PROGR ESS NOTE: LOCAL TITLE: PRIMARY CARE CLINIC PROGRESS NOTE PB STANDARD TITLE: PRIMARY CARE PROGRESS NOTE DATE OF NOTE: AUG 14, 2024@09:46 ENTRY DATE: AUG 14, 2024@09:46:50 AUTHOR: HUMERA FORTUNE EXP COSIGNER: URGENCY: STATUS: COMPLETED PRIMARY CARE CLINIC PROGRESS NOTE PB Has ADDENDA CC: Skin lesion left temporal area HPI: Patient presents for excisional biopsy of the concerning lesion in his left temporal area possible squamous cell cancer history of squamous cancer. Patient is also now ready to have surgery for his left inguinal hernia. He was prescribed hydralazine 25 mg from an ER doctor which helped him sleep well and woke up with blood sugar pressures 130s over 50s which is very unusual for him. Non[place] Primary Care Provider no Specialty Services Family Service Aide- hemodialysis Cardiology- Dr. Erwin? FAMILY HX: Mother is , age - 94 Father is , age - 87 Siblings - neg SOCIAL HX: MARITAL STATUS: , Keysha WORK HX: retired- multiple jobs HOBBIES: none TOBACCO: no ALCOHOL: occ beer DRUGS: no HX: BRANCH: Colma 1957-. JOB/DUTIES: [employer] OVERSEAS STATIONS/DEPLOYMENTS: [employer] MAJOR ACCIDENTS OR INJURIES WHILE ON ACTIVE DUTY: SURGICAL HX: Bilateral knee replacements Stents in aorta Stent in bilateral ? 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) 2) Osteoarthritis of right hip joint (SNOMED CT 532131888199056) 3) Benign essential hypertension (SNOMED CT 5442888) 4) Osteoarthritis (SNOMED CT 528369203) 5) Peripheral arterial occlusive disease 6) Hyperlipidemia (SNOMED CT 61183928) 7) Eczema 8) Renal failure 9) Hearing loss 10) Peripheral neuropathy 11) Generalized pruritus 12) Chronic diastolic heart failure 13) Aortic valve stenosis 14) Chronic hypoxemic respiratory failure 15) Coronary artery disease 16) Squamous cell carcinoma in situ of skin 17) Insomnia ([facility] [id number]) 18) Transient cerebral ischemia Active Outpatient Medications (including Supplies): Active Outpatient Medications Status 1) CALCIUM ACETATE 667MG (CA 169MG) CAP TAKE TWO CAPSULES BY ACTIVE MOUTH THREE TIMES A DAY WITH MEALS AND SNACKS FOR REDUCING PHOSPHORUS. 2) CARVEDILOL 25MG TAB TAKE ONE TABLET BY MOUTH TWICE A DAY FOR ACTIVE HEART. TAKE WITH FOOD. 3) NIFEDIPINE (EQV-CC) 60MG SA TAB TAKE TWO TABLETS BY MOUTH ACTIVE ONCE A DAY FOR HEART/BLOOD PRESSURE. PREFERABLE TO TAKE ON EMPTY STOMACH. SWALLOW WHOLE; DO NOT CRUSH OR CHEW. AVOID GRAPEFRUIT JUICE. 4) TABLET CUTTER USE TABLET CUTTER ONCE A DAY NEEDED ACTIVE Indication: FOR TABLET CUTTING 5) TRAZODONE HCL 100MG TAB TAKE ONE-HALF TABLET BY MOUTH AT ACTIVE BEDTIME Indication: FOR INSOMNIA OBJECTIVE: Vital Signs Temperature: 98.1 F [36.7 C] (08/14/2024 09:36) Respiratory Rate: 17 (08/14/2024 09:36) Pulse Rate: 64 (08/14/2024 09:36) Blood Pressure: 123/46 (08/14/2024 09:36) HT: 72.0 in [182.9 cm] (12/13/2023 11:33) WT: 147.3 lb [66.81 kg] (08/14/2024 09:36) BMI: 20.0 97% (08/14/2024 09:36) Physical Exam General: NAD noted, A&Ox3, pleasant, appears stated age HEENT: NCAT, TM's clear, nares and oropharynx clear Neck: Supple with normal active ROM, without any lymphadenopathy Heart: RRR, no murmur, clicks, or rub Resp: Lungs CTA bilaterally, respirations even and unlabored Abdomen: Soft, non-distended, non-tender Ext: No clubbing, cyanosis, edema or obvious deformity Neuro: Grossly intact Psych: Affect normal, answers questions appropriately throughout visit Assessment/Plan: 1) Lesion to left temporal area 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 Area cleaned with betadine solution and 5ml of 1% lidocaine used for local anesthesia SQ infiltrate. #11 blade scalpel used to excised out the lesions, which was sent to pathology for examination. Skin closed with continuous running 5:0 nylon suture. Patient tolerated well with about less than 5 ml blood loss; triple antibiotic ointment with band aid applied. Written instruction given on wound care. 2) Left inguinal hernia-patient is now ready to have surgery will refer to surgeon here in [place] 3) Insomnia/hypertension-will continue with hydralazine 25 mg at bedtime; will set up for home oxygen study as well Follow-up: 10 days for stitch removal and/or as needed. Discussed with [...] spent 30 minutes. /adarsh/ Humera Fortune MD [facility] Primary Care Signed: 08/14/2024 10:29 08/22/2024 ADDENDUM STATUS: COMPLETED DIAGNOSIS: SKIN, LEFT EVANGELICAL, EXCISIONAL BIOPSY - HYPERTROPHIC ACTINIC KERATOSIS /adarsh/ Humera Fortune MD [facility] Primary Care Signed: 08/22/2024 12:19 [facility]
--- OUTSIDE RECORDS SUMMARY | 2024-08-21 08:15 | XMS_ITS ---
Author Name [facility] [facility] [place] Address [address] [place] [address] Care Team Providers Care Salesperson Driver Name Role Phone THANH VIVEROS Primary Care Provider Unavailab REDDY Villanueva Primary Care Provider Unavailabl e LEORA PINA Unavailable Unavailable LEORA RIVAS Unavailable Unavailable LAKSHMI GARCIA Unavailable Unavail able LISHA ARCE Unavailable Unavailable November Unavailable Unavailable MARLENA TORIBIO Unavailable Unavailable HUMERA [...] PART A Mar 14, 2004 PART A [id number] PATIENT MEDICARE (WNR) MEDICARE (M) PART A Mar 14, 2004 PART A [id number] [phone] PATIENT MEDICARE (WNR) MEDICARE (M) PART A Mar 14, 2004 PART A [id number] [facility] [phone] PATIENT MEDICARE (WNR) MEDICARE (M) PART A Mar 14, 2004 PART A [id number] PATIENT MEDICARE (WNR) MEDICARE (M) PART A Mar 14, 2004 PART A [id number] [facility] [address] PATIENT MEDICARE (WNR) MEDICARE (M) PART A Mar 14, 2004 PART A [id number] [facility] [address] PATIENT MEDICARE (WNR) MEDICARE (M) PART A Mar 14, 2004 PART A [id number] PATIENT MEDICARE (WNR) MEDICARE (M) PART A Mar 14, 2004 PART A [id number] [facility] [address] PATIENT Selected Encounter This section includes the information on record at [place] for the Encounter. Date/Time Encounter Type Encounter Description Reason Provider Source Aug 21, 2024 01:15 PM OFF/OP EST OCTOBER X REQ PHY/QHP PRIMARY CARE/MEDICINE ICD-10-CM L76.22 Postproc hemorrhage of skin, subcu following other procedure JACQUELYN WAGNER Teresa Encounter Template Text not used by [place] Assessments - Encounter Diagnoses This section includes the primary and secondary diagnoses documented for the Encounter. Date/Time Primary/Secondary Diagnosis Diagnosis Name Provider Source Aug 21, 2024 04:40 PM PRIMARY Postproc hemorrhage of skin, subcu following other procedure JACQUELYN WAGNER [facility] Plan of Treatment: Future Appointments (+ 6 months) and Future Tests (+/- 45 days) The Plan of Treatment section includes future care activities for the patient from all [place] treatmentfacilities. This section includes future appointments and future orders which are active, pending or scheduled. Future Appointments This section includes appointments that were scheduled to occur 6 months from the date of the Encounter, up to a maximum of 20 appointments. The data comes from all [place] treatment facilities. Appointment Date/Time Appointment Type Appointme nt Facility Name Aug 24, 2024 01:45 PM AMBULATORY - MEDICINE [facility] Sep 01, 2024 09:30 AM AMBULATORY - MEDICINE [facility] Sep 01, 2024 09:45 AM AMBULATORY - MEDICINE [facility] Sep 11, 2024 01:45 PM AMBULATORY - MEDICINE [facility] October 24, 2024 01:40 PM AMBULATORY - SURGERY POPLA R BLUFF [facility] Nov 13, 2024 02:45 PM AMBULATORY - MEDICINE [facility] Vital Signs: All taken on the encounter date This section contains inpatient and outpatient Vital Signs collected on the date of the Encounter. Date/Time Temperature Pulse Blood Pressure Respiratory Rate SP02 Pain Height Weight Body Mass Index Source Aug 21, 2024 04:24 PM 98 74 118/78 [facility] Social History: Smoking Status (Most current) and Tobacco Use (All prior to encounter date) This section includes the most current, and the historical, smoking and tobacco- related health factors from the [place] facility where the Encounter took place. Current Smoking Status This section includes the most current smoking, or tobacco-related health factor, from the [place] facility where the Encounter took place. Date/Time Current Smoking Status Comment Blade dewey Jul 10, 2024 10:00 AM VA-TOBACCO USE FORMER CIGARETTES [facility] Tobacco Use History This section includes a history of the smoking, or tobacco-related health factors, that were collected on or before the date of the Encounter. The data comes from the [place] facility where the Encounter took place. Date/Time Smoking Status/Tobacco Use Comment Brianne carrillo Jul 10, 2024 10:00 AM VA-TOBACCO USE FORMER CIGARETTES [facility] Jul 19, 2023 09:00 AM VA-TOBACCO FORMER USER [facility] Jul 19, 2023 09:00 AM VA-TOBACCO QUIT 15 YRS OR MORE [facility] Jul 27, 2022 10:00 AM VA-TOBACCO FORMER USER [facility] Jul 27, 2022 10:00 AM VA-TOBACCO QUIT 15 YRS OR MORE [facility] Jul 29, 2021 09:30 AM VA-TOBACCO NEVER USED [facility] Jul 23, 2020 08:32 AM VA-TOBACCO FORMER USER [facility] Jul 23, 2020 08:32 AM VA-TOBACCO QUIT 15 YRS OR MORE [facility] Sep 25, 2010 10:27 AM QUIT TOBACCO >7 YEARS AGO [facility] October 17, 2009 01:55 PM QUIT TOBACCO >12 MO & <7 YRS AGO [facility] Advance Directives: All historical and current Section Date Range: From patient's date of to the date document was created. This section includes ALL of a patient's completed or amended [place] Advance and Rescinded Directives. The entries below indicate that a directive exists for the patient, but an actual copy is not included with this document. The data comes from all [place] facilities. Date Advance Directives Provider Source Jun 03, 2012 ADVANCE DIRECTIVE RYAN TAPIA [facility] May 28, 2012 ADVANCE DIRECTIVE KINGJAMARIWILLIAMS [facility]ERSON[facility] Apr 14, 2012 ADVANCE DIRECTIVE DISCUSSION RYAN TAPIA [facility] Dec 02, 2010 ADVANCE DIRECTIVE DISCUSSION RYAN TAPIA [facility] Pathology Reports: +/- 30 [...] the Encounter. The data comes from all [place] treatment facilities. Date/Time Pathology Report Provider Source Sep 05, 2024 12:30 PM LR SURGICAL PATHOL OGY REPORT: LOCAL TITLE: LR SURGICAL PATHOLOGY REPORT STANDARD TITLE: PATHOLOGY PROCEDURE NOTE DATE OF NOTE: SEP 05, 2024@12:30:48 ENTRY DATE: SEP 05, 2024@12:30:48 AUTHOR: SARA EMERSON COSIGNER: URGENCY: STATUS: COMPLETED $APHDR - - [...] - - - PATHOLOGY REPORT Accession No. [id number] - - - - - - [...] BIOPSY WITH MARGINS OF LESION ON LEFT GNOSTICIST - - - - - - - - - - - - - - - - - - - - - - - - - - - - - - - - - - - - - - - - BRIEF CLINICAL HISTORY: Excisional biopsy of lesion on left restorationism - - - - - - - [...] - PATHOLOGY REPORT Accession No. [id number] - - - - - - - [...] SSN, and Excisional Biopsy with Margins Left [place] is a nodular, dark red-brown skin excisional biopsy measuring 2.0 x 1.7 x 1.0 cm. The resection margin is inked, and the tissue is serial sectioned and submitted entirely in A1(tips)- A3. MICROSCOPIC EXAM: [Dr. Jacob Emerson 09-05-2024] Sections from the left restorationism show a biopsy composed primarily of a large eschar with abundant entrapped bacterial forms and necrosis. Small fragments of viable epidermis are seen with mild keratinocyte pleomorphism. Extensive inflammation and necrosis is seen immediately below these areas of epidermis. DIAGNOSIS: SKIN, LEFT GNOSTICIST, EXCISIONAL BIOPSY - ESCHAR WITH ABUNDANT BACTERIAL FORMS (SEE MICROSCOPIC DESCRIPTION AND COMMENT) Comment: The biopsy shows primarily a large eschar with bacterial forms. Portions of epidermis with actinic change are noted along with extensive necrosis and inflammation. Correlation with culture results is recommended. /adarsh/ SARA EMERSON MD DERMATOLOGY & DERMATOPATHOLOGY Signed Sep 05, 2024@12:30 Performing Laboratory: Surgical Pathology Report Performed By: [address]# [id number] [address] [place] [id number] $FTR - - - - - - [...] - - [address] STANDARD FORM 515 ID:[id number] SEX:M :1940 AGE: 84 LOC:&ALBRE PCP: Humera Fortune MD /adarsh/ SARA EMERSON MD DERMATOLOGY & DERMATOPATHOLOGY Signed: 09/05/2024 12:30 SARA EMERSON [facility] Aug 22, 2024 11:52 AM LR [...] 2024 10:04): A. EXCISIONAL BIOPSY WITH MARGINS,LEFT GNOSTICIST - - - - - - - - - - - - - - - - - - - - - - - - - - - - - - - - - - - - - - - - BRIEF CLINICAL HISTORY: Lesion left restorationism - - - - - - - - - - - - - - - - - - - - - - - - - - - - - - - - - - - - - - - - PREOPERATIVE DIAGNOSIS: Lesion left restorationism - - - - - - - - - - - - - - - - - - - - - - - - - - - - - - - - - - - - - - - - OPERATIVE FINDINGS: Lesion left restorationism - - - - - - - - - - - - - - - - - - - - - - - - - - - - - - - - - - - - - - - - POSTOPERATIVE DIAGNOSIS: Lesion left restorationism Surgeon/physician: HUMERA FORTUNE MD =-=-=-=-=-=-=-=-=-=-=-=-=-=-=- =-=-=-=-=-=-=-=-=-=-=-=-=-=-=- =-=-=-=-=-=-=-=-=-= [...] the patient's full name, SSN, and Left [place] is an unoriented skin ellipse measuring 1.8 [...] substantiates the cited diagnosis(es). DIAGNOSIS: SKIN, LEFT GNOSTICIST, EXCISIONAL BIOPSY - HYPERTROPHIC ACTINIC KERATOSIS /adarsh/ SARA EMERSON MD DERMATOLOGY & DERMATOPATHOLOGY Signed Aug 22, 2024@11:52 Performing Laboratory: Surgical Pathology Report Performed By: [facility]# [id number] [address] [place] [id number] $FTR - - - - - - [...] - - [address] STANDARD FORM 515 ID:[id number] SEX:M :1940 AGE: 84 LOC:&ALBRE PCP: Humera Fortune MD /adarsh/ SARA EMERSON MD DERMATOLOGY & DERMATOPATHOLOGY Signed: 08/22/2024 11:52 SARA EMERSON [facility] Encounter Notes: All associated encounter notes This section contains the clinical notes associated to the Encounter. Date/Time Encounter Note(s) Provider Source Aug 21, 2024 04:23 PM NURSING PROGRESS N OTE: LOCAL TITLE: NURSING NOTE PB STANDARD TITLE: NURSING PROGRESS NOTE DATE OF NOTE: AUG 21, 2024@16:23 ENTRY DATE: AUG 21, 2024@16:24 AUTHOR: JACQUELYN WAGNER COSIGNER: URGENCY: STATUS: COMPLETED Blood Pressure: 118/78 Pulse: 74 Temperature: 98 F (36.7 C) Pulse Oximetry: 97% Active Outpatient Medications: Active Outpatient Medications (including Supplies): Active Outpatient Medications Status 1) CALCIUM ACETATE 667MG (CA 169MG) CAP TAKE TWO CAPSULES BY ACTIVE MOUTH THREE TIMES A DAY WITH MEALS AND SNACKS FOR REDUCING PHOSPHORUS. 2) CARVEDILOL 25MG TAB TAKE ONE TABLET BY MOUTH TWICE A DAY FOR ACTIVE HEART. TAKE WITH FOOD. 3) HYDRALAZINE HCL 25MG TAB TAKE ONE TABLET BY MOUTH AT BEDTIME ACTIVE Indication: FOR HIGH BLOOD PRESSURE 4) TABLET CUTTER USE TABLET CUTTER ONCE A DAY NEEDED ACTIVE Indication: FOR TABLET CUTTING 5) TRAZODONE HCL 100MG TAB TAKE ONE-HALF TABLET BY MOUTH AT ACTIVE BEDTIME Indication: FOR INSOMNIA CC: presents to walk in clinic stating left temporal excision bleeding. Subjective: states he had to go to ER this am because upon waking he had significant bleeding from left temporal suture site. Denies trauma or known injury to area. O/A: [place] is alert and oriented. Compression bandage removed from site. Sutures x 5 intact with no obvious signs of wound dehiscense. Mild redness and swelling under suture site with ecchymosis entending under left eye. No signs of infection. And no active bleeding at current time. Small abraised appearing area from ER using silver nitrate to stop bleeding. Plan/ Intervention: Site assessed by PCP. Continue with plan to come in 08/24/24 for possible suture removal. Cleanse area with soap and water, cover with triple antibiotic cream. Any bleeding or signs of infection return to clinic. RTC: As scheduled. Per [facility] Directive 1605.06, wristband documentation: Patient wristband was removed and destroyed by (staff name) Jacquelyn Wagner RN and placed in the designated [employer] bin. /es/ JACQUELYN JUNG RN [facility] Signed: 08/21/2024 16:39 Receipt Acknowledged By: 08/22/2024 08:28 /es/ Humera Fortune MD [facility] Primary Care CUSTRED,JACQUELYN Reyes [facility]
--- OUTSIDE RECORDS SUMMARY | 2024-08-24 08:45 | XMS_ITS | Encounter Summary ---
Author Name [facility] Organization [facility] Address [address] [place] [address] Care Team Providers Care Sheetrock Applicator Name Role Phone DENYSVINNY WittINE Primary Care Provider Unavailab REDYD Villanueva Primary Care Provider Unavailabl e LEORA [...] PART A Mar 14, 2004 PART A [id number] PATIENT MEDICARE (WNR) MEDICARE (M) PART A Mar 14, 2004 PART A [id number] PATIENT MEDICARE (WNR) MEDICARE (M) PART A Mar 14, 2004 PART A [id number] [facility] [phone] LOWMAGNO Moore PATIENT MEDICARE (WNR) MEDICARE (M) PART A Mar 14, 2004 PART A [id number] LOWMAGNO Moore PATIENT MEDICARE (WNR) MEDICARE (M) PART A Mar 14, 2004 PART A [id number] [facility] [phone] [place] PATIENT MEDICARE (WNR) MEDICARE (M) PART A Mar 14, 2004 PART A [id number] [facility] LOWMAGNO Moore PATIENT MEDICARE (WNR) MEDICARE (M) PART A Mar 14, 2004 PART A [id number] [phone] LOWMAGNO Moore PATIENT MEDICARE (WNR) MEDICARE (M) PART A Mar 14, 2004 PART A [id number] [facility] [phone] PATIENT Selected Encounter This section includes the information on record at [place] for the Encounter. Date/Time Encounter Type Encounter Description Reason Provider Source Aug 24, 2024 01:45 PM NURSING ASSESSMENT/EVAL [facility] PRIMARY CARE/MEDICINE ICD-10-CM L98.9 Disorder of the skin and subcutaneous tissue, unspecified ULI CARDONA Teresa Encounter Template Text not used by [place] Assessments - Encounter Diagnoses This section includes the primary and secondary diagnoses documented for the Encounter. Date/Time Primary/Secondary Diagnosis Diagnosis Name Provider Source Sep 01, 2024 09:19 AM PRIMARY Disorder of the skin and subcutaneous tissue, unspecified MAGALY CARDONA [facility] Plan of Treatment: Future Appointments (+ 6 months) and Future Tests (+/- 45 days) The Plan of Treatment section includes future care activities for the patient from all [place] treatmentfacilities. This section includes future appointments and future orders which are active, pending or scheduled. Future Appointments This section includes appointments that were scheduled to occur 6 months from the date of the Encounter, up to a maximum of 20 appointments. The data comes from all [place] treatment facilities. Appointment Date/Time Appointment Type Appointme nt Facility Name Sep 01, 2024 09:30 AM AMBULATORY - MEDICINE [facility] Sep 01, 2024 09:45 AM AMBULATORY - MEDICINE [facility] Sep 11, 2024 01:45 PM [facility] [place]IC[place] [facility] October 24, 2024 01:40 PM AMBULATORY - SURGERY POPLA R BLUFF [facility] Nov 13, 2024 02:45 PM AMBULATORY - MEDICINE [facility] Social History: Smoking Status (Most current) and Tobacco Use (All prior to encounter date) This section includes the most current, and the historical, smoking and tobacco- related health factors from the [place] facility where the Encounter took place. Current Smoking Status This section includes the most current smoking, or tobacco-related health factor, from the [place] facility where the Encounter took place. Date/Time Current Smoking Status Comment Blade ity Jul 10, 2024 10:00 AM VA-TOBACCO USE FORMER CIGARETTES [facility] Tobacco Use History This section includes a history of the smoking, or tobacco-related health factors, that were collected on or before the date of the Encounter. The data comes from the [place] facility where the Encounter took place. Date/Time Smoking Status/Tobacco Use Comment F acility Jul 10, 2024 10:00 AM VA-TOBACCO USE FORMER CIGARETTES [facility] Jul 19, 2023 09:00 AM VA-TOBACCO FORMER USER [facility] Jul 19, 2023 09:00 AM VA-TOBACCO QUIT 15 YRS OR MORE [facility] Jul 27, 2022 10:00 AM VA-TOBACCO FORMER USER [facility] Jul 27, 2022 10:00 AM VA-TOBACCO QUIT 15 YRS OR MORE [facility] Jul 29, 2021 09:30 AM VA-TOBACCO NEVER USED [facility] Jul 23, 2020 08:32 AM VA-TOBACCO FORMER USER [facility] Jul 23, 2020 08:32 AM VA-TOBACCO QUIT 15 YRS OR MORE [facility] Sep 25, 2010 10:27 AM QUIT TOBACCO >7 YEARS AGO [facility] October 17, 2009 01:55 PM QUIT TOBACCO >12 MO & <7 YRS AGO [facility] Advance Directives: All historical and current Section Date Range: From patient's date of to the date document was created. This section includes ALL of a patient's completed or amended [place] Advance and Rescinded Directives. The entries below indicate that a directive exists for the patient, but an actual copy is not included with this document. The data comes from all [place] facilities. Date Advance Directives Provider Source Jun 03, 2012 ADVANCE DIRECTIVE [facility]AN TAPIA [facility] May 28, 2012 ADVANCE DIRECTIVE JAMARI BRISENO GERA FF [facility] Apr 14, 2012 AD[facility]ANCE [facility]IVE [facility] Dec 02, 2010 ADVANCE DIRECTIVE DISCUSSION RYAN TAPIA [facility] Pathology Reports: +/- 30 days of the [...] the Encounter. The data comes from all [place] treatment facilities. Date/Time Pathology Report Provider Source Sep 05, 2024 12:30 PM LR SURGICAL PATHOL OGY REPORT: LOCAL TITLE: LR SURGICAL PATHOLOGY REPORT STANDARD TITLE: PATHOLOGY PROCEDURE NOTE DATE OF NOTE: SEP 05, 2024@12:30:48 ENTRY DATE: SEP 05, 2024@12:30:48 AUTHOR: SARA EMERSONIGNER: URGENCY: STATUS: COMPLETED $APHDR - - - [...] BIOPSY WITH MARGINS OF LESION ON LEFT TAOISM - - - - - - - - - - - - - - - - - - - - - - - - - - - - - - - - - - - - - - - - BRIEF CLINICAL HISTORY: Excisional biopsy of lesion on left mu-ism - - - - - - - [...] - PATHOLOGY REPORT Accession No. [id number] - - - - - - - [...] SSN, and Excisional Biopsy with Margins Left Orthodox is a nodular, dark red-brown skin excisional biopsy measuring 2.0 x 1.7 x 1.0 cm. The resection margin is inked, and the tissue is serial sectioned and submitted entirely in A1(tips)- A3. MICROSCOPIC EXAM: [Dr. Jacob Emerson 09-05-2024] Sections from the left mu-ism show a biopsy composed primarily of a large eschar with abundant entrapped bacterial forms and necrosis. Small fragments of viable epidermis are seen with mild keratinocyte pleomorphism. Extensive inflammation and necrosis is seen immediately below these areas of epidermis. DIAGNOSIS: SKIN, LEFT TAOISM, EXCISIONAL BIOPSY - ESCHAR WITH ABUNDANT BACTERIAL FORMS (SEE MICROSCOPIC DESCRIPTION AND COMMENT) Comment: The biopsy shows primarily a large eschar with bacterial forms. Portions of epidermis with actinic change are noted along with extensive necrosis and inflammation. Correlation with culture results is recommended. /adarsh/ SARA EMERSON MD DERMATOLOGY & DERMATOPATHOLOGY Signed Sep 05, 2024@12:30 Performing Laboratory: Surgical Pathology Report Performed By: [facility] [id number] [address] [place] [id number] $FTR - - - - - - [...] - - [address] STANDARD FORM 515 ID:[id number] SEX:M :1940 AGE: 84 LOC:&ALBRE PCP: Humera Fortune MD /adarsh/ SARA EMERSON MD DERMATOLOGY & DERMATOPATHOLOGY Signed: 09/05/2024 12:30 SARA EMERSON [facility] Aug 22, 2024 11:52 AM [...] 2024 10:04): A. EXCISIONAL BIOPSY WITH MARGINS,LEFT TAOISM - - - - - - - - - - - - - - - - - - - - - - - - - - - - - - - - - - - - - - - - BRIEF CLINICAL HISTORY: Lesion left mu-ism - - - - - - - - - - - - - - - - - - - - - - - - - - - - - - - - - - - - - - - - PREOPERATIVE DIAGNOSIS: Lesion left mu-ism - - - - - - - - - - - - - - - - - - - - - - - - - - - - - - - - - - - - - - - - OPERATIVE FINDINGS: Lesion left mu-ism - - - - - - - - - - - - - - - - - - - - - - - - - - - - - - - - - - - - - - - - POSTOPERATIVE DIAGNOSIS: Lesion left mu-ism Surgeon/physician: HUMERA FORTUNE MD =-=-=-=-=-=-=-=-=-=-=-=-=-=-=- =-=-=-=-=-=-=-=-=-=-=-=-=-=-=- =-=-=-=-=-=-=-=-=-= [...] the patient's full name, SSN, and Left Orthodox is an unoriented skin ellipse measuring 1.8 [...] substantiates the cited diagnosis(es). DIAGNOSIS: SKIN, LEFT TAOISM, EXCISIONAL BIOPSY - HYPERTROPHIC ACTINIC KERATOSIS /adarsh/ SARA EMERSON MD DERMATOLOGY & DERMATOPATHOLOGY Signed Aug 22, 2024@11:52 Performing Laboratory: Surgical Pathology Report [facility]formed By: [facility] [address] [place] [address] CLIA# [id number] [address] [address] $FTR - - - - - - [...] - - [address] STANDARD FORM 515 ID:[id number] SEX:M :1940 AGE: 84 LOC:&ALBRE PCP: Humera Fortune MD /adarsh/ SARA EMERSON MD DERMATOLOGY & DERMATOPATHOLOGY Signed: 08/22/2024 11:52 SARA EMERSON [facility] Encounter Notes: All associated encounter notes This section contains the clinical notes associated to the Encounter. Date/Time Encounter Note(s) Provider Source Aug 24, 2024 01:47 PM NURSING PROGRESS N OTE: LOCAL TITLE: NURSING NOTE PB STANDARD TITLE: NURSING PROGRESS NOTE DATE OF NOTE: AUG 24, 2024@13:47 ENTRY DATE: AUG 24, 2024@13:51:19 AUTHOR: DULCE,CHLOE RE EXP COSIGNER: URGENCY: STATUS: COMPLETED This is a 84 year old MALE with known Allergies as noted: IBUPROFEN C/C: Suture Removal S: [place]ois stated that he was in the ER on 08/23 and 08/21 due to the incision on his left temporal has been bleeding. stated that he is here today to see if he can have the sutures removed. On the following Active Medications: Active Outpatient Medications (including Supplies): Active Outpatient Medications Status === 1) CALCIUM ACETATE 667MG (CA 169MG) CAP [...] MOUTH AT ACTIVE BEDTIME Indication: FOR INSOMNIA O: ambulated into the clinic without assistance. Steady gait. Alert and oriented x4. Unlabored breathing. Left temporal incision has a continuous nylon suture and silver nitrate with a clot on top of the suture. A/P: Reviewed with Provider. Provider advised that she wanted him to keep the incision/clot moist and to return to the clinic on Wednesday for a nurse visit to re-evaluate if the suture can be removed. Iroquois voiced understanding. escorted to the lobby in stable condition. RTC: as needed /adarsh/ Chloe Cardona RN [place] [facility], [facility] Signed: 08/24/2024 14:05 Receipt Acknowledged By: 08/24/2024 16:09 /es/ [facility] CHLOE CARDONA [facility]
--- OUTSIDE RECORDS SUMMARY | 2024-09-01 04:45 | XMS_ITS | Encounter Summary ---
Author Name [facility] [facility] [place] Organization [facility] [place] [facility] [place] Address [address] [place] [address] Care Team Providers Care Help Desk Specialist Name Role Phone THANH VIVEROS Primary Care [...] PART A Mar 14, 2004 PART A [id number] PATIENT MEDICARE (WNR) MEDICARE (M) PART A Mar 14, 2004 PART A [id number] [phone] PATIENT MEDICARE (WNR) MEDICARE (M) PART A Mar 14, 2004 PART A [id number] [facility] [phone] PATIENT MEDICARE (WNR) MEDICARE (M) PART A Mar 14, 2004 PART A [id number] PATIENT MEDICARE (WNR) MEDICARE (M) PART A Mar 14, 2004 PART A [id number] [facility] [address] PATIENT MEDICARE (WNR) MEDICARE (M) PART A Mar 14, 2004 PART A [id number] [facility] LOWMAGNO Moore PATIENT MEDICARE (WNR) MEDICARE (M) PART A Mar 14, 2004 PART A [id number] PATIENT MEDICARE (WNR) MEDICARE (M) PART A Mar 14, 2004 PART A [id number] [facility] [address] PATIENT Selected Encounter This section includes the information on record at [place] for the Encounter. Date/Time Encounter Type Encounter Description Reason Provider Source Sep 01, 2024 09:45 AM OFF/OP EST OCTOBER X REQ PHY/QHP PRIMARY CARE/MEDICINE ICD-10-CM Z48.89 Encounter for other specified surgical aftercare LUIS WILKES Teresa Encounter Template Text not used by [place] Assessments - Encounter Diagnoses This section includes the primary and secondary diagnoses documented for the Encounter. Date/Time Primary/Secondary Diagnosis Diagnosis Name Provider Source Sep 06, 2024 12:52 PM PRIMARY Encounter for other specified surgical aftercare PERCY WILKES [facility] Plan of Treatment: Future Appointments (+ [...] Appointment Type Appointme nt Facility Name Sep 11, 2024 01:45 PM AMBULATORY - MEDICINE [facility] October 24, 2024 01:40 PM AMBULATORY - SURGERY JENI LANGLEY [facility] Nov 13, 2024 02:45 PM AMBULATORY - MEDICINE [facility] Social History: Smoking Status (Most [...] 2024 10:00 AM VA-TOBACCO USE FORMER CIGARETTES [facility] Tobacco Use History This section includes a history of the smoking, or tobacco-related health factors, that were collected on or before the date of the Encounter. The data comes from the [place] facility where the Encounter took place. Date/Time Smoking Status/Tobacco Use Comment F ackenny Jul 10, 2024 10:00 AM VA-TOBACCO USE FORMER CIGARETTES [facility] Jul 19, 2023 09:00 AM VA-TOBACCO FORMER USER [facility] Jul 19, 2023 09:00 AM VA-TOBACCO QUIT 15 YRS OR MORE [facility] Jul 27, 2022 10:00 AM VA-TOBACCO FORMER USER [facility] Jul 27, 2022 10:00 AM VA-TOBACCO QUIT 15 YRS OR MORE [facility] Jul 29, 2021 09:30 AM VA-TOBACCO NEVER USED [facility] Jul 23, 2020 08:32 AM VA-TOBACCO FORMER USER [facility] Jul 23, 2020 08:32 AM VA-TOBACCO QUIT 15 YRS OR MORE [facility] Sep 25, 2010 10:27 AM QUIT TOBACCO >7 YEARS AGO [facility] October 17, 2009 01:55 PM QUIT TOBACCO >12 MO & <7 YRS AGO [facility] Advance Directives: All historical and [...] Jun 03, 2012 ADVANCE DIRECTIVE RYAN TAPIA [facility] May 28, 2012 ADVANCE DIRECTIVE JAMARI BRISENO [facility] [place] [facility] Apr 14, 2012 ADVANCE DIRECTIVE DISCUSSION ROMERYAN [facility] Dec 02, 2010 ADVANCE DIRECTIVE DISCUSSION RYAN TAPIA [facility] CB Pathology Reports: +/- 30 [...] the Encounter. The data comes from all [place] treatment facilities. Date/Time Pathology Report Provider Source [...] BIOPSY WITH MARGINS OF LESION ON LEFT UATSDIN - - - - - - - - - - - - - - - - - - - - - - - - - - - - - - - - - - - - - - - - BRIEF CLINICAL HISTORY: Excisional biopsy of lesion on left pentecostalism - - - - - - - [...] SSN, and Excisional Biopsy with Margins Left Latter-Day is a nodular, dark red-brown skin excisional biopsy measuring 2.0 x 1.7 x 1.0 cm. The resection margin is inked, and the tissue is serial sectioned and submitted entirely in A1(tips)- A3. MICROSCOPIC EXAM: [Dr. Jacob Emerson 09-05-2024] Sections from the left pentecostalism show a biopsy composed primarily of a large eschar with abundant entrapped bacterial forms and necrosis. Small fragments of viable epidermis are seen with mild keratinocyte pleomorphism. Extensive inflammation and necrosis is seen immediately below these areas of epidermis. DIAGNOSIS: SKIN, LEFT UATSDIN, EXCISIONAL BIOPSY - ESCHAR WITH ABUNDANT BACTERIAL FORMS (SEE MICROSCOPIC DESCRIPTION AND COMMENT) Comment: The biopsy shows primarily a large eschar with bacterial forms. Portions of epidermis with actinic change are noted along with extensive necrosis and inflammation. Correlation with culture results is recommended. /adarsh/ SARA EMERSON MD DERMATOLOGY & DERMATOPATHOLOGY Signed Sep 05, 2024@12:30 Performing Laboratory: Surgical Pathology Report Performed By: [facility]# [id number] [address] [place] [address] $FTR - - - - - - [...] - - [address] STANDARD FORM 515 ID:[id number] SEX:M :1940 AGE: 84 LOC:&ALBRE PCP: Humera Fortune MD /adarsh/ SARA EMERSON MD DERMATOLOGY & DERMATOPATHOLOGY Signed: 09/05/2024 12:30 SARA EMERSON [facility] Aug 22, 2024 11:52 [...] 2024 10:04): A. EXCISIONAL BIOPSY WITH MARGINS,LEFT UATSDIN - - - - - - - - - - - - - - - - - - - - - - - - - - - - - - - - - - - - - - - - BRIEF CLINICAL HISTORY: Lesion left pentecostalism - - - - - - - - - - - - - - - - - - - - - - - - - - - - - - - - - - - - - - - - PREOPERATIVE DIAGNOSIS: Lesion left pentecostalism - - - - - - - - - - - - - - - - - - - - - - - - - - - - - - - - - - - - - - - - OPERATIVE FINDINGS: Lesion left pentecostalism - - - - - - - - - - - - - - - - - - - - - - - - - - - - - - - - - - - - - - - - POSTOPERATIVE DIAGNOSIS: Lesion left pentecostalism Surgeon/physician: HUMERA FORTUNE MD =-=-=-=-=-=-=-=-=-=-=-=-=-=-=- =-=-=-=-=-=-=-=-=-=-=-=-=-=-=- =-=-=-=-=-=-=-=-=-= [...] - - - - - GROSS DESCRIPTION: Corinara Beck, 08/18/2024 Received in formalin in a container labeled with the patient's full name, SSN, and Left Latter-Day is an unoriented skin ellipse measuring 1.8 [...] substantiates the cited diagnosis(es). DIAGNOSIS: SKIN, LEFT UATSDIN, EXCISIONAL BIOPSY - HYPERTROPHIC ACTINIC KERATOSIS /adarsh/ SARA EMERSON MD DERMATOLOGY & DERMATOPATHOLOGY Signed Aug 22, 2024@11:52 Performing Laboratory: Surgical Pathology Report Performed By: [id number] [place] [id number] $FTR - - - - - - [...] - - [address] STANDARD FORM 515 ID:[id number] SEX:M :1940 AGE: 84 LOC:&ALBRE PCP: Humera Fortune MD /adarsh/ SARA EMERSON MD DERMATOLOGY & DERMATOPATHOLOGY Signed: 08/22/2024 11:52 SARA EMERSON [facility] Encounter Notes: All associated encounter notes This section contains the clinical notes associated to the Encounter. Date/Time Encounter Note(s) Provider Source Sep 01, 2024 10:07 AM NURSING PROGRESS N OTE: LOCAL TITLE: NURSING NOTE PB STANDARD TITLE: NURSING PROGRESS NOTE DATE OF NOTE: SEP 01, 2024@10:07 ENTRY DATE: SEP 01, 2024@10:07:36 AUTHOR: PERCY WILKES COSIGNER: URGENCY: STATUS: COMPLETED This is a 84 year old MALE with known Allergies as noted: IBUPROFEN The presented to the clinic for suture removal. The was seen on 08/14/24 for excisional biopsy of a lesion on the left side of his face. The woke up in the middle of the night on 08/23 and the wound had started oozing so he went to the ER and they used silver nitrate to stop the bleeding. The came into the clinic on 08/24/24 for nurse visit to have the stitches removed. Dr. Fortune examined the during visit. Sutures were not able to be removed due to silver nitrate used on wound. The returned to the ER on 08/28/24 and they placed more stiches. Dr. Fortune came into the room and talked to the she let him know that she was going to have to cut out all the dried tissue and what appeared to be a new growth and that we would send it off to pathology. Consents were signed. Medications were scanned with BCMA, Dr. Fortune administered lidocaine. Augusta instructed to sleep with a dressing on the site to prevent him for opening it up in his sleep. The voiced understanding and scheduled to come back for nurse visit for suture removal. Per [facility] Directive 1605.06, wristband documentation: Patient wristband was removed and destroyed by (staff name) Chip Wilkes RN and placed in the designated Rank By [email or web address] bin. /adarsh/ Percy Wilkes RN,BSN [place] Signed: 09/01/2024 12:34 [facility] WILKES [facility]
--- OUTSIDE RECORDS SUMMARY | 2024-09-11 08:45 | XMS_ITS | Encounter Summary ---
Author Name [facility] [place] [facility] [place] Address [address] [place] [address] Care Team Providers Care Fractionation Supervisor Name Role Phone THNAH VIVEROS Primary Care Provider Unavailab REDDY Villanueva [...] PART A Mar 14, 2004 PART A [id number] PATIENT MEDICARE (WNR) MEDICARE (M) PART A Mar 14, 2004 PART A [id number] [phone] PATIENT MEDICARE (WNR) MEDICARE (M) PART A Mar 14, 2004 PART A [id number] [facility] [phone] PATIENT MEDICARE (WNR) MEDICARE (M) PART A Mar 14, 2004 PART A [id number] PATIENT MEDICARE (WNR) MEDICARE (M) PART A Mar 14, 2004 PART A [id number] [facility] [address] PATIENT MEDICARE (WNR) MEDICARE (M) PART A Mar 14, 2004 PART A [id number] [facility] [address] PATIENT MEDICARE (WNR) MEDICARE (M) PART A Mar 14, 2004 PART A [id number] PATIENT MEDICARE (WNR) MEDICARE (M) PART A Mar 14, 2004 PART A [id number] [facility] [address] PATIENT Selected Encounter This section includes the information on record at [place] for the Encounter. Date/Time Encounter Type Encounter Description Reason Provider Source Sep 11, 2024 01:45 PM OFF/OP EST OCTOBER X REQ PHY/QHP PRIMARY CARE/MEDICINE ICD-10-CM Z48.02 Encounter for removal of sutures LUIS WILKES Teresa Encounter Template Text not used by [place] Assessments - Encounter Diagnoses This section includes the primary and secondary diagnoses documented for the Encounter. Date/Time Primary/Secondary Diagnosis Diagnosis Name Provider Source Sep 11, 2024 02:11 PM PRIMARY Encounter for removal of sutures [facility] Plan of Treatment: Future Appointments (+ 6 months) and Future Tests (+/- 45 days) The Plan of Treatment section includes future care activities for the patient from all [place] treatmentfacilities. This section includes future appointments and future orders which are active, pending or scheduled. Future Appointments This section includes appointments that were scheduled to occur 6 months from the date of the Encounter, up to a maximum of 20 appointments. The data comes from all [place] treatment facilities. Appointment Date/Time Appointment Type Appointme nt Facility Name October 24, 2024 01:40 PM AMBULATORY - SURGERY JENI LANGLEY [facility] Nov 13, 2024 02:45 PM AMBULATORY - MEDICINE [facility] Social History: Smoking Status (Most current) and Tobacco Use (All prior to encounter date) This section includes the most current, and the historical, smoking and tobacco- related health factors from the [place] facility where the Encounter took place. Current Smoking Status This section includes the most current smoking, or tobacco-related health factor, from the [place] facility where the Encounter took place. Date/Time Current Smoking Status Comment Blade ity Jul 10, 2024 10:00 AM VA-TOBACCO USE FORMER CIGARETTES [facility] Tobacco Use History This section includes a history of the smoking, or tobacco-related health factors, that were collected on or before the date of the Encounter. The data comes from the [place] facility where the Encounter took place. Date/Time Smoking Status/Tobacco Use Comment Brianne [facility] Jul 10, 2024 10:00 AM VA-TOBACCO USE FORMER CIGARETTES [facility] Jul 19, 2023 09:00 AM VA-TOBACCO FORMER USER [facility] Jul 19, 2023 09:00 AM VA-TOBACCO QUIT 15 YRS OR MORE [facility] Jul 27, 2022 10:00 AM VA-TOBACCO FORMER USER [facility] Jul 27, 2022 10:00 AM VA-TOBACCO QUIT 15 YRS OR MORE [facility] Jul 29, 2021 09:30 AM VA-TOBACCO NEVER USED [facility] Jul 23, 2020 08:32 AM VA-TOBACCO FORMER USER [facility] Jul 23, 2020 08:32 AM VA-TOBACCO QUIT 15 YRS OR MORE [facility] Sep 25, 2010 10:27 AM QUIT TOBACCO >7 YEARS AGO [facility] October 17, 2009 01:55 PM QUIT TOBACCO >12 MO & <7 YRS AGO [facility] Advance Directives: All historical and current Section Date Range: From patient's date of to the date document was created. This section includes ALL of a patient's completed or amended [place] Advance and Rescinded Directives. The entries below indicate that a directive exists for the patient, but an actual copy is not included with this document. The data comes from all [place] facilities. Date Advance Directives Provider Source Jun 03, 2012 ADVANCE DIRECTIVE RYAN TAPIA [facility] May 28, 2012 ADVANCE DIRECTIVE JAMARI BRISENO [facility] Apr 14, 2012 ADVANCE DIRECTIVE DISCUSSION RYAN TAPIA [facility] Dec 02, 2010 ADVANCE DIRECTIVE DISCUSSION RYAN TAPIA [facility] Pathology Reports: +/- 30 days of [...] the Encounter. The data comes from all [facility] facilities. Date/Time Pathology Report Provider Source Sep [...] BIOPSY WITH MARGINS OF LESION ON LEFT CHEONDOISM - - - - - - - - - - - - - - - - - - - - - - - - - - - - - - - - - - - - - - - - BRIEF CLINICAL HISTORY: Excisional biopsy of lesion on left hinduism - - - - - - - [...] SSN, and Excisional Biopsy with Margins Left Druze is a nodular, dark red-brown skin excisional biopsy measuring 2.0 x 1.7 x 1.0 cm. The resection margin is inked, and the tissue is serial sectioned and submitted entirely in A1(tips)- A3. MICROSCOPIC EXAM: [Dr. Jacob Emerson 09-05-2024] Sections from the left hinduism show a biopsy composed primarily of a large eschar with abundant entrapped bacterial forms and necrosis. Small fragments of viable epidermis are seen with mild keratinocyte pleomorphism. Extensive inflammation and necrosis is seen immediately below these areas of epidermis. DIAGNOSIS: SKIN, LEFT CHEONDOISM, EXCISIONAL BIOPSY - ESCHAR WITH ABUNDANT BACTERIAL FORMS (SEE MICROSCOPIC DESCRIPTION AND COMMENT) Comment: The biopsy shows primarily a large eschar with bacterial forms. Portions of epidermis with actinic change are noted along with extensive necrosis and inflammation. Correlation with culture results is recommended. /adarsh/ SARA EMERSON MD DERMATOLOGY & DERMATOPATHOLOGY Signed Sep 05, 2024@12:30 Performing Laboratory: Surgical Pathology Report Performed By: [facility] CLIA# [id number] [facility] [address] [place] [address] $FTR - - - - - - [...] - - [address] STANDARD FORM 515 ID:[id number] SEX:M :1940 AGE: 84 LOC:&ALBRE PCP: Humera Fortune MD /adarsh/ SARA EMERSON MD DERMATOLOGY & DERMATOPATHOLOGY Signed: 09/05/2024 12:[address] [facility] Aug 22, 2024 11:52 [...] 2024 10:04): A. EXCISIONAL BIOPSY WITH MARGINS,LEFT CHEONDOISM - - - - - - - - - - - - - - - - - - - - - - - - - - - - - - - - - - - - - - - - BRIEF CLINICAL HISTORY: Lesion left hinduism - - - - - - - - - - - - - - - - - - - - - - - - - - - - - - - - - - - - - - - - PREOPERATIVE DIAGNOSIS: Lesion left hinduism - - - - - - - - - - - - - - - - - - - - - - - - - - - - - - - - - - - - - - - - OPERATIVE FINDINGS: Lesion left hinduism - - - - - - - - - - - - - - - - - - - - - - - - - - - - - - - - - - - - - - - - POSTOPERATIVE DIAGNOSIS: Lesion left hinduism Surgeon/physician: HUMERA FORTUNE MD =-=-=-=-=-=-=-=-=-=-=-=-=-=-=- =-=-=-=-=-=-=-=-=-=-=-=-=-=-=- =-=-=-=-=-=-=-=-=-= [...] - - - - GROSS DESCRIPTION: Corina Kellydaniele, 08/18/2024 Received in formalin in a container labeled with the patient's full name, SSN, and Left Druze is an unoriented skin ellipse measuring 1.8 [...] substantiates the cited diagnosis(es). DIAGNOSIS: SKIN, LEFT CHEONDOISM, EXCISIONAL BIOPSY - HYPERTROPHIC ACTINIC KERATOSIS /adarsh/ SARA EMERSON MD DERMATOLOGY & DERMATOPATHOLOGY Signed Aug 22, 2024@11:52 Performing Laboratory: Surgical Pathology Report Performed By: [facility] [id number] [address] [place] [id number] $FTR - - - - - - [...] - - [address] STANDARD FORM 515 ID:[id number] SEX:M :1940 AGE: 84 LOC:&ALBRE PCP: Humera Fortune MD /mick EMERSON MD DERMATOLOGY & DERMATOPATHOLOGY Signed: 08/22/2024 11:[address] [facility] Encounter Notes: All associated encounter notes This section contains the clinical notes associated to the Encounter. Date/Time Encounter Note(s) Provider Source November 08, 2024 09:48 AM GENERAL MEDICINE N OTE: LOCAL TITLE: General Note PB STANDARD TITLE: GENERAL MEDICINE NOTE DATE OF NOTE: NOVEMBER 08, 2024@09:48 ENTRY DATE: NOVEMBER 08, 2024@09:48:40 AUTHOR: RADHA NIX EXP COSIGNER: URGENCY: STATUS: COMPLETED General Note PB Has ADDENDA ADDED COMMENT 11/07/24 12:12 ROSALINA HECTOR ROCHELLE 2024 annual oxygen renewal is due. Please schedule vetearn at [facility] and place new consult. Please call and schedule /adarsh/ RADHA NIX LPN [facility] Signed: 11/08/2024 09:49 Receipt Acknowledged By: 11/08/2024 13:40 /adarsh/ UGO ALCALA AMSJay 11/08/2024 ADDENDUM STATUS: COMPLETED This AMSA attempted to contact the [facility] to schedule an oxygen renewal testing with [employer] [facility]. Unable to contact the [facility], a message was left and a letter mailed. /adarsh/ UGO ALCALA AMSA Signed: 11/08/2024 13:47 RADHA NIX [facility] Sep 11, 2024 02:06 PM NURSING PROGRESS N OTE: LOCAL TITLE: NURSING NOTE PB STANDARD TITLE: NURSING PROGRESS NOTE DATE OF NOTE: SEP 11, 2024@14:06 ENTRY DATE: SEP 11, 2024@14:06:58 AUTHOR: PERCY WILKES COSIGNER: URGENCY: STATUS: COMPLETED This is a 84 year old MALE with known Allergies as noted: IBUPROFEN C/C: suture removal [facility] here for suture removal following second biopsy of non-healing would on the left hinduism. One continuous suture was removed without docility, incision is well healed no sight of infection. Let the know that he could stop putting topical antibiotic on the incision. The had no question or concerns at this time. Non-healing wound to left hinduism with new growth of concern Suspicious skin lesion left hinduism 3.5cm- informed consent obtained and time outperformed. Area cleaned with betadine solution and 10ml of 1% lidocaine used for local anesthesia SQ infiltrate. #11 blade scalpel used to excised out the lesions, which was sent to pathology for examination. Ols rement stitches removed and area cleaned well. Superficial capillary bleeding cauterized. Skin closed with continuous running 5:0 nylon suture. Patient tolerated well with about 5ml blood loss; triple antibiotic ointment with pressure bandage. Written instruction given on wound care. - /adarsh/ Percy Wilkes, RN,BSN [place], [facility] Signed: 09/11/2024 14:11 PERCY WILKES [facility]
--- OUTSIDE RECORDS SUMMARY | 2024-11-13 09:45 | XMS_ITS | Encounter Summary ---
Author Name [facility] [facility] [place] [facility] [place] [facility] [place] Address [address] [place] [address] Care Team Providers Care 911 Dispatcher Name Role Phone THANH VIVEROS Primary Care Provider Unavailab REDDY Villanueva Primary Care Provider Unavailabl e LEORA PINA Unavailable Unavailable LEORA RIVAS Unavailable Unavailable LAKSHMI GARCIA Unavailable Unavail able LISHA ARCE Unavailable Unavailable ANTIONENovember Unavailable Unavailable MARLENA TORIBIO Unavailable Unavailable JOSE [...] PART A Mar 14, 2004 PART A [id number] PATIENT MEDICARE (WNR) MEDICARE (M) PART A Mar 14, 2004 PART A [id number] PATIENT MEDICARE (WNR) MEDICARE (M) PART A Mar 14, 2004 PART A [id number] [facility] [phone] PATIENT MEDICARE (WNR) MEDICARE (M) PART A Mar 14, 2004 PART A [id number] PATIENT MEDICARE (WNR) MEDICARE (M) PART A Mar 14, 2004 PART A [id number] [facility] [id number] PATIENT MEDICARE (WNR) MEDICARE (M) PART A Mar 14, 2004 PART A [id number] [facility] [address] PATIENT MEDICARE (WNR) MEDICARE (M) PART A Mar 14, 2004 PART A [id number] PATIENT MEDICARE (WNR) MEDICARE (M) PART A Mar 14, 2004 PART A [id number] [facility] [address] PATIENT Selected Encounter This section includes the information on record at [place] for the Encounter. Date/Time Encounter Type Encounter Description Reason Provider Source Nov 13, 2024 02:45 PM OFF/OP EST OCTOBER X REQ PHY/QHP PRIMARY CARE/MEDICINE ICD-10-CM J96.11 Chronic respiratory failure with hypoxia LUIS WILKES Teresa Encounter Template Text not used by [place] Assessments - Encounter Diagnoses This section includes the primary and secondary diagnoses documented for the Encounter. Date/Time Primary/Secondary Diagnosis Diagnosis Name Provider Source Nov 15, 2024 12:22 PM PRIMARY Chronic respiratory failure with hypoxia PERCY WILKES [facility] Plan of Treatment: Future Appointments (+ 6 months) and Future Tests (+/- 45 days) The Plan of Treatment section includes future care activities for the patient from all [place] treatmentfacilities. This section includes future appointments and future orders which are active, pending or scheduled. Future Appointments This section includes appointments that were scheduled to occur 6 months from the date of the Encounter, up to a maximum of 20 appointments. The data comes from all [place] treatment facilities. Appointment Date/Time Appointment Type Appointme nt Facility Name Jan 22, 2025 01:30 PM AMBULATORY - MEDICINE POPL FRACISCO COLBERT [facility] Active, Pending, and Scheduled Orders This section includes a listing of several types of active, pending, and scheduled orders, including clinic medications orders, diagnostic test orders, procedure orders and consult orders; where the start date of the order is 45 days before the date of the Encounter or 45 days after the date of theEncounter. The data comes from all [place] treatment facilities. Test Date/Time Test Type Test Details Facility Name Nov 15, 2024 05:08 PM Consult [id number] Cons Activities Therapist's Choice EDWARD COLBERT [facility] Vital Signs: All taken on the encounter date This section contains inpatient and outpatient Vital Signs collected on the date of the Encounter. Date/Time Temperature Pulse Blood Pressure Respiratory Rate SP02 Pain Height Weight Body Mass Index Source Nov 13, 2024 02:47 PM 67 97 [facility] Social History: Smoking Status (Most current) and Tobacco Use (All prior to encounter date) This section includes the most current, and the historical, smoking and tobacco- related health factors from the [place] facility where the Encounter took place. Current Smoking Status This section includes the most current smoking, or tobacco-related health factor, from the [place] facility where the Encounter took place. Date/Time Current Smoking Status Comment Blade dewey Jul 10, 2024 10:00 AM VA-TOBACCO USE FORMER CIGARETTES [facility] Tobacco Use History This section includes a history of the smoking, or tobacco-related health factors, that were collected on or before the date of the Encounter. The data comes from the [place] facility where the Encounter took place. Date/Time Smoking Status/Tobacco Use Comment F lorena Jul 10, 2024 10:00 AM VA-TOBACCO USE FORMER CIGARETTES [facility] Jul 19, 2023 09:00 AM VA-TOBACCO FORMER USER [facility] Jul 19, 2023 09:00 AM VA-TOBACCO QUIT 15 YRS OR MORE [facility] Jul 27, 2022 10:00 AM VA-TOBACCO FORMER USER [facility] Jul 27, 2022 10:00 AM VA-TOBACCO QUIT 15 YRS OR MORE [facility] Jul 29, 2021 09:30 AM VA-TOBACCO NEVER USED [facility] Jul 23, 2020 08:32 AM VA-TOBACCO FORMER USER [facility] Jul 23, 2020 08:32 AM VA-TOBACCO QUIT 15 YRS OR MORE [facility] Sep 25, 2010 10:27 AM QUIT TOBACCO >7 YEARS AGO [facility] October 17, 2009 01:55 PM QUIT TOBACCO >12 MO & <7 YRS AGO [facility] Advance Directives: All historical and current Section Date Range: From patient's date of to the date document was created. This section includes ALL of a patient's completed or amended [place] Advance and Rescinded Directives. The entries below indicate that a directive exists for the patient, but an actual copy is not included with this document. The data comes from all [place] facilities. Date Advance Directives Provider Source Jun 03, 2012 ADVANCE DIRECTIVE RYAN TAPIA NS [facility] May 28, 2012 ADVANCE DIRECTIVE JAMARI BRISENO [facility] Apr 14, 2012 ADVANCE DIRECTIVE DISCUSSION RYAN TAPIA [facility] Dec 02, 2010 ADVANCE DIRECTIVE DISCUSSION RYAN TAPIA [facility] Encounter Notes: All associated encounter notes This section contains the clinical notes associated to the Encounter. Date/Time Encounter Note(s) Provider Source Nov 13, 2024 02:30 PM NURSING PROGRESS N OTE: LOCAL TITLE: NURSING NOTE PB STANDARD TITLE: NURSING PROGRESS NOTE DATE OF NOTE: NOV 13, 2024@14:30 ENTRY DATE: NOV 13, 2024@14:30:07 AUTHOR: PERCY WILKES COSIGNER: URGENCY: STATUS: COMPLETED This is a 84 year old MALE with known Allergies as noted: IBUPROFEN The presented to the clinic for an oxygen check. The Spo2 was 98% at rest with pulse of 72. The did a 4 minute walk Spo2 readings did not drop below 92% for the majority of the walk his reading was about 94%. Let the know that he did not qualify for oxygen any longer. The reports that he only used it a hand full of times since getting the oxygen. The does reports the he has a pulse ox at home. Instructed him to check it if he was feeling SOB at all and to let us know if he was seeing readings below 88% or if he was having increased SOB. The ambulated without a cane, but the 's gait was weak. Asked the about a cane or rollator. The reports he has canes at home and has a walker. Encouraged the to be using them the reports that he will not lie to me and that he will probably not use them. Asked a rollator would be better and if so I could get him one. The reports no. Let him know if he changed his mind to let me now and we would get him one. The voiced understanding and had no further questions at this time. Per [facility] Directive 1605.06, wristband documentation: Patient wristband was removed and destroyed by (staff name) Chip Wilkes RN and placed in the designated [employer] bin. /es/ Percy Wilkes RN,BSN LAILA Levin Signed: 11/15/2024 12:23 PERCY WILKES
--- OUTSIDE RECORDS SUMMARY | 2024-11-17 02:51 | XMS_ITS ---
Author Name [facility] [facility] [place] [facility] [place] Address [address] [place] [address] Care Team Providers Care Home Maker Name Role Phone JACKELINEVINNYTHANH Primary Care Provider Unavailab REDDY Villanueva Primary Care Provider Unavailabl e LEORA PINA Unavailable Unavailable LEORA RIVAS Unavailable Unavailable LAKSHMI GARCIA Unavailable Unavail able LISHA ARCE Unavailable Unavailable ANTIONE, MELISSA Unavailable Unavailable MARLENA TORIBIO Unavailable Unavailable JOSE AMRANDO FORTUNE Primary Care Provider Unavailabl e Insurance [...] PART A Mar 14, 2004 PART A [id number] PATIENT MEDICARE (WNR) MEDICARE (M) PART A Mar 14, 2004 PART A [id number] [phone] PATIENT MEDICARE (WNR) MEDICARE (M) PART A Mar 14, 2004 PART A [id number] [facility] [phone] PATIENT MEDICARE (WNR) MEDICARE (M) PART A Mar 14, 2004 PART A [id number] [place]OW[place] PATIENT MEDICARE (WNR) MEDICARE (M) PART A Mar 14, 2004 PART A [id number] [facility] LOWMAGNO Moore PATIENT MEDICARE (WNR) MEDICARE (M) PART A Mar 14, 2004 PART A [id number] [facility] LOWMAGNO Moore PATIENT MEDICARE (WNR) MEDICARE (M) PART A Mar 14, 2004 PART A [id number] [phone] [place] PATIENT MEDICARE (WNR) MEDICARE (M) PART A Mar 14, 2004 PART A [id number] [facility] [address] PATIENT Selected Encounter This section includes the information on record at [place] for the Encounter. Date/Time Encounter Type Encounter Description Reason Provider Source Nov 17, 2024 07:51 AM Outpatient Encounter COMMUNITY CARE CONSULT MARIA E COOPER Encounter Template Text not used by [place] Plan of Treatment: Future Appointments (+ 6 months) and Future Tests (+/- 45 days) The Plan of Treatment section includes future care activities for the patient from all [place] treatmentfacilities. This section includes future appointments and future orders which are active, pending or scheduled. Future Appointments This section includes appointments that were scheduled to occur 6 months from the date of the Encounter, up to a maximum of 20 appointments. The data comes from all [place] treatment facilities. Appointment Date/Time Appointment Type Appointme nt Facility Name Jan 22, 2025 01:30 PM AMBULATORY - MEDICINE CHAZ YAP [facility] Active, Pending, and Scheduled Orders This section includes a listing of several types of active, pending, and scheduled orders, including clinic medications orders, diagnostic test orders, procedure orders and consult orders; where the start date of the order is 45 days before the date of the Encounter or 45 days after the date of theEncounter. The data comes from all [place] treatment facilities. Test Date/Time Test Type Test Details Facility Name Nov 15, 2024 05:08 PM Consult Order COMMUNITY [id number] Cons Rn Teacher's Choice EDWARD [facility] Advance Directives: All historical and current Section Date Range: From patient's date of to the date document was created. This section includes ALL of a patient's completed or amended [place] Advance and Rescinded Directives. The entries below indicate that a directive exists for the patient, but an actual copy is not included with this document. The data comes from all [place] facilities. Date Advance Directives Provider Source Jun 03, 2012 ADVANCE DIRECTIVE RYAN TAPIA RAMONEGaviota NS [facility] May 28, 2012 ADVANCE DIRECTIVE JAMARI EDWARD PEDERSONU FF [facility] Apr 14, 2012 ADVANCE DIRECTIVE DISCUSSION RYAN TAPIA [facility] Dec 02, 2010 ADVANCE DIRECTIVE DISCUSSION RYAN TAPIA [facility] Encounter Notes: All associated encounter notes This section contains the clinical notes associated to the Encounter. Date/Time Encounter Note(s) Provider Source Nov 17, 2024 07:51 AM NONVA NOTE: LOCAL TITLE: COMMUNITY CARE-CARE COORDINATION PLAN NOTE [id number] PB STANDARD TITLE: NONVA NOTE DATE OF NOTE: NOV 17, 2024@07:51 ENTRY DATE: NOV 17, 2024@07:52:09 AUTHOR: MARIA E COOPER EXP COSIGNER: URGENCY: STATUS: COMPLETED Community Care Consult: CARDIOLOGY Consult No: [id number] [facility] Referral #: [id number] Chief Complaint: RFS received from Dr. Shayne Little, [facility] forreferral to Cardiology for Cardiac Clearance Patient Admitted? No Level of Care Coordination Moderate Care Coordination was determined from: Chart Review Facility Community Care Office Contact Care Coordination Point of Contact: Maria E Cooper RN Phone Number: [phone] Services: Basic Care Coordination Services Monitoring and coordination of Rehab/PT Services Direct communication to referring provider Care management, if appropriate Plan: Proceed with scheduling /es/ MARIA E COOPER RN Signed: 11/17/2024 07:54 MARIA E COOPER [facility]
--- OUTSIDE RECORDS SUMMARY | 2025-01-02 09:45 | XMS_ITS | Encounter Summary ---
Author Name [facility] [place] [facility] [place] [facility] [place] Address [address] [place] [address] Care Team Providers Care Health Administration Teacher Name Role Phone THANH VIVEROS Primary Care [...] PART A Mar 14, 2004 PART A [id number] PATIENT MEDICARE (WNR) MEDICARE (M) PART A Mar 14, 2004 PART A [id number] [phone] PATIENT MEDICARE (WNR) MEDICARE (M) PART A Mar 14, [id number] [facility] [phone] PATIENT MEDICARE (WNR) MEDICARE (M) PART A Mar 14, 2004 PART A [id number] PATIENT MEDICARE (WNR) MEDICARE (M) PART A Mar 14, [id number] [facility] [id number] PATIENT MEDICARE (WNR) MEDICARE (M) PART A Mar 14, [id number] [facility] [address] PATIENT MEDICARE (WNR) MEDICARE (M) PART A Mar 14, 2004 PART A [id number] PATIENT MEDICARE (WNR) MEDICARE (M) PART A Mar 14, [id number] [facility] [address] PATIENT Selected Encounter This section includes the information on record at [place] for the Encounter. Date/Time Encounter Type Encounter Description Reason Provider Source Jan 02, 2025 02:45 PM OFF/OP EST OCTOBER X REQ PHY/QHP PRIMARY CARE/MEDICINE ICD-10-CM I95.89 Other hypotension MAGALY CARDONA Teresa Encounter Template Text not used by [place] Assessments - Encounter Diagnoses This section includes the primary and secondary diagnoses documented for the Encounter. Date/Time Primary/Secondary Diagnosis Diagnosis Name Provider Source Jan 02, 2025 03:32 PM PRIMARY Other hypotension TAISHA CARDONA [facility] Plan of Treatment: Future Appointments (+ 6 months) and Future Tests (+/- 45 days) The Plan of Treatment section includes future care activities for the patient from all [place] treatmentfacilities. This section includes future appointments and future orders which are active, pending or scheduled. Future Appointments This section includes appointments that were scheduled to occur 6 months from the date of the Encounter, up to a maximum of 20 appointments. The data comes from all [place] treatment facilities. Appointment Date/Time Appointment Type Appointme nt Facility Name Jan 22, 2025 01:30 PM AMBULATORY - MEDICINE POPL FRACISCO LANGLEY [facility] Feb 21, 2025 03:30 PM AMBULATORY - MEDICINE [facility] Mar 15, 2025 10:00 AM AMBULATORY - NONE POPLAR B LUFF [facility] Mar 15, 2025 11:00 AM AMBULATORY - MEDICINE POPL AR BLUFF [facility] Jun 25, 2025 09:00 AM AMBULATORY - MEDICINE [facility] Active, Pending, and Scheduled Orders This section includes a listing of several types of active, pending, and scheduled orders, including clinic medications orders, diagnostic test orders, procedure orders and consult orders; where the start date of the order is 45 days before the date of the Encounter or 45 days after the date of theEncounter. The data comes from all [place] treatment facilities. Test Date/Time Test Type Test Details Facility Name Dec 20, 2024 11:49 AM Consult Order COMMUNITY CARE-NEPHROLOGY DIALYSIS OVERSIGHT [id number] Cons Transmissions Systems Operator's Choice POPLAR BLLEESA [facility] Jan 18, 2025 08:28 AM Consult Order COMMUNITY CARE-HEMODIALYSIS [id number] Cons Transmissions Systems Operator's Choice POPLAR BLUFF [facility] Jan 18, 2025 08:28 AM Consult Order COMMUNITY [facility]-NEPHROLOGY DIALYSIS OVERSIGHT [id number] Cons Transmissions Systems Operator's Choice POPLAR [facility] Vital Signs: All taken on the encounter date This section contains inpatient and outpatient Vital Signs collected on the date of the Encounter. Date/Time Temperature Pulse Blood Pressure Respiratory Rate SP02 Pain Height Weight Body Mass Index Source Jan 02, 2025 03:13 PM 98 F 65 /min 127/58 mm[Hg] 18 /min 95 % 132.4 lb 18 [facility] Social History: Smoking Status (Most current) and Tobacco Use (All prior to encounter date) This section includes the most current, and the historical, smoking and tobacco- related health factors from the [place] facility where the Encounter took place. Current Smoking Status This section includes the most current smoking, or tobacco-related health factor, from the [place] facility where the Encounter took place. Date/Time Current Smoking Status Comment Facil ity Jul 10, 2024 10:00 AM MS-TOBACCO USE FORMER CIGARETTES [facility] Tobacco Use History This section includes a history of the smoking, or tobacco-related health factors, that were collected on or before the date of the Encounter. The data comes from the [place] facility where the Encounter took place. Date/Time Smoking Status/Tobacco Use Comment F acility Jul 10, 2024 10:00 AM MS-TOBACCO USE FORMER CIGARETTES [facility] Jul 19, 2023 09:00 AM VA-TOBACCO FORMER USER [facility] Jul 19, 2023 09:00 AM VA-TOBACCO QUIT 15 YRS OR MORE [facility] Jul 27, 2022 10:00 AM VA-TOBACCO FORMER USER [place] [facility] Jul 27, 2022 10:00 AM VA-TOBACCO QUIT 15 YRS OR MORE [facility] Jul 29, 2021 09:30 AM VA-TOBACCO NEVER USED [facility] Jul 23, 2020 08:32 AM VA-TOBACCO FORMER USER [facility] Jul 23, 2020 08:32 AM VA-TOBACCO QUIT 15 YRS OR MORE [facility] Sep 25, 2010 10:27 AM QUIT TOBACCO >7 YEARS AGO [facility] October 17, 2009 01:55 PM QUIT TOBACCO >12 MO & <7 YRS AGO [facility] Advance Directives: All historical and current Section Date Range: From patient's date of to the date document was created. This section includes ALL of a patient's completed or amended [place] Advance and Rescinded Directives. The entries below indicate that a directive exists for the patient, but an actual copy is not included with this document. The data comes from all [place] facilities. Date Advance Directives Provider Source Jun 03, 2012 ADVANCE DIRECTIVE RYAN TAPIA [facility] May 28, 2012 ADVANCE DIRECTIVE JAMARI BRISENO [facility] Apr 14, 2012 ADVANCE DIRECTIVE DISCUSSION WILLIERYAN Luther [facility] Dec 02, 2010 ADVANCE DIRECTIVE DISCUSSION RYAN TAPIA [facility] Encounter Notes: All associated encounter notes This section contains the clinical notes associated to the Encounter. Date/Time Encounter Note(s) Provider Source Jan 02, 2025 03:14 PM NURSING PROGRESS N OTE: LOCAL TITLE: NURSING NOTE PB STANDARD TITLE: NURSING PROGRESS NOTE DATE OF NOTE: JAN 02, 2025@15:14 ENTRY DATE: JAN 02, 2025@15:14:42 AUTHOR: CHLOE CARDONA COSIGNER: URGENCY: STATUS: COMPLETED This is a 84 year old MALE with known Allergies as noted: IBUPROFEN C/C: Hypotension S: Faith stated that he has cut back his Nifedipine 60mg to one tablet per day instead of two due to it was causing his BP to be low and to feel awful. Faith stated that 80s systolic. stated that he has lost weight lately due to he is alone and just doesn't cook like he should. Faith stated that he is working on getting his weight back up. On the following Active Medications: Active Outpatient Medications (including Supplies): Active Outpatient Medications Status === 1) ALLOPURINOL 100MG TAB TAKE ONE TABLET BY MOUTH ONCE A DAY ACTIVE FOR GOUT. TAKE WITH PLENTY OF WATER. 2) ATORVASTATIN CALCIUM 40MG TAB TAKE ONE-HALF TABLET BY MOUTH ACTIVE EVERY EVENING TO LOWER CHOLESTEROL 3) CARVEDILOL 25MG TAB TAKE ONE TABLET BY MOUTH TWICE A DAY FOR ACTIVE HEART. TAKE WITH FOOD. 4) HYDRALAZINE HCL 25MG TAB TAKE ONE TABLET BY MOUTH AT BEDTIME ACTIVE (S) Indication: FOR HIGH BLOOD PRESSURE 5) NIFEDIPINE (EQV-CC) 60MG SA TAB TAKE TWO TABLETS BY MOUTH ACTIVE ONCE A DAY FOR HEART/BLOOD PRESSURE. PREFERABLE TO TAKE ON EMPTY STOMACH. SWALLOW WHOLE; DO NOT CRUSH OR CHEW. AVOID GRAPEFRUIT JUICE. 6) TRAZODONE HCL 100MG TAB TAKE ONE-HALF TABLET BY MOUTH AT ACTIVE BEDTIME Indication: FOR INSOMNIA O: ambulated into the clinic without assistance. Steady gait. Alert and oriented x4. Unlabored breathing. A/P: I advised Faith that I will alert the Provider of this message. advise that he has an appt with Cardiology on 01/22/2025. Faith advised that I recommend for him to make an appt with PCP regarding weight loss. Faith agreed to plan of care. escorted to the lobby in stable condition. RTC: as needed /adarsh/ Chloe Cardona RN [facility], PAVELP [facility] Signed: 01/02/2025 15:27 Receipt Acknowledged By: 01/04/2025 08:32 /adarsh/ MD MAGNO VELEZ III [facility] for JOSE ARMANDO CARDONA,[facility]
--- OUTSIDE RECORDS SUMMARY | 2025-01-26 06:50 | XMS_ITS | Encounter Summary ---
Author Name [facility] [facility] [place] [facility] [place] [facility] [place] Address [address] [place] [address] Care Team Providers Care Tool Straightener Name Role Phone DENYSVINNY WittINE Primary Care Provider Unavailab REDDY Villanueva Primary Care Provider Unavailabl e LEORA PINA Unavailable Unavailable LEORA RIVAS Unavailable Unavailable LAKSHMI GARCIA Unavailable Unavail able LISHA ARCE Unavailable Unavailable ANTIONE, NOVEMBER Unavailable Unavailable MARLENA TORIBIO Unavailable Unavailable JOSE [...] PART A Mar 14, 2004 PART A [id number] MAGNO PATEL PATIENT MEDICARE (WNR) MEDICARE (M) PART A Mar 14, 2004 PART A [id number] MAGNO PATEL PATIENT MEDICARE (WNR) MEDICARE (M) PART A Mar 14, 2004 PART A [id number] [facility] [phone] MAGNO PATEL PATIENT MEDICARE (WNR) MEDICARE (M) PART A Mar 14, 2004 PART A [id number] [phone] LOWMAGNO Moore PATIENT MEDICARE (WNR) MEDICARE (M) PART A Mar 14, 2004 PART A [id number] [facility] LOWMAGNO Moore PATIENT MEDICARE (WNR) MEDICARE (M) PART A Mar 14, 2004 PART A [id number] [facility] LOWMAGNO Moore PATIENT MEDICARE (WNR) MEDICARE (M) PART A Mar 14, 2004 PART A [id number] LOWMAGNO Moore PATIENT MEDICARE (WNR) MEDICARE (M) PART A Mar 14, 2004 PART A [id number] [facility] [phone] MAGNO PATEL PATIENT Selected Encounter This section includes the information on record at [place] for the Encounter. Date/Time Encounter Type Encounter Description Reason Pro vider Source Jan 26, 2025 11:50 AM Outpatient Encounter COMMUNITY CARE CONSULT IHE Encounter Template Text not used by [place] Plan of Treatment: Future Appointments (+ 6 [...] Date/Time Appointment Type Appointme nt Facility Name Feb 21, 2025 03:30 PM AMBULATORY - MEDICINE [facility] Mar 15, 2025 10:00 AM AMBULATORY - NONE [facility] Mar 15, 2025 11:00 AM AMBULATORY - MEDICINE [facility] Jun 25, 2025 09:00 AM AMBULATORY - MEDICINE [facility] Jul 09, 2025 09:00 AM AMBULATORY - MEDICINE [facility] Active, Pending, and Scheduled Orders This section includes a listing of several types of active, pending, and scheduled orders, including clinic medications orders, diagnostic test orders, procedure orders and consult orders; where the start date of the order is 45 days before the date of the Encounter or 45 days after the date of theEncounter. The data comes from all [place] treatment facilities. Test Date/Time Test Type Test Details Facility Name Dec 20, 2024 11:49 AM Consult Order COMMUNITY CARE-NEPHROLOGY DIALYSIS OVERSIGHT 657A4 Cons Collar Padder Blindstitch's Choice [facility] Jan 18, 2025 08:28 AM Consult Order COMMUNITY CARE-HEMODIALYSIS 657A4 Cons Collar Padder [facility]stit[facility] Jan 18, 2025 08:28 AM Consult Order [facility]NEPHROLOGY DIALYSIS OVERSIGHT [id number] Cons Collar Padder Blindstitch's Choice [facility] Advance Directives: All historical and [...] 03, 2012 ADVANCE DIRECTIVE RYAN TAPIA NS [facility] May 28, 2012 ADVANCE DIRECTIVE KINGJAMARIWILLIAMS PEDERSONU FF [facility] Apr 14, 2012 ADVANCE DIRECTIVE DISCUSSION RYAN TAPIA [facility] Dec 02, 2010 ADVANCE DIRECTIVE DISCUSSION RYAN TAPIA [facility] Encounter Notes: All associated encounter notes This section contains the clinical notes associated to the Encounter. Date/Time Encounter Note(s) Provider Source Jan 26, 2025 11:50 AM LETTERS: LOCAL TITLE: COMMUNITY CARE-REFERRAL PB (AUTO-PRINT) STANDARD TITLE: LETTERS DATE OF NOTE: JAN 26, 2025@11:50:35 ENTRY DATE: JAN 26, 2025@11:50:36 AUTHOR: KATIE JAMES EXP COSIGNER: URGENCY: STATUS: COMPLETED Magno Patel [address] [place] [id number] Dear MAGNO PATEL, Your VA provider has referred you to a provider within the community for care. Your medical care for HEMODIALYSIS has been authorized with the Community Care Provider listed below. DO NOT REPORT TO THE [facility] Provider info: ANNUAL RENEWAL OF HEMODIALYSIS AUTHORIZATION Annual renewal starts for you on: Mar 15, 2025 10:00 AM Office Name: [facility] Address: [address] Address: [place] [address] Auth #: [id number] Referral Issue Date: 2025-01-26 Expiration Date: 2026-03-15 If you are unable to keep this appointment or the appointment is no longer needed, please contact the community provider above for notification/rescheduling and then call the [facility] [place] Community Care Office at [phone] Ext [phone]. If you need additional care/services not mentioned above, please contact your primary care provider for a new referral. Co-Payments: If you are required to pay a VA co-payment, you will be billed by the VA for each authorized visit that you attend. However, you are NOT REQUIRED to make co-payments to a Community Provider. Prescriptions: Your community provider may write a prescription related to the authorized care. If there is an immediate need for your prescriptions from your community care visit, you may be able to get up to a 14-day fill of your prescription at your own expense for the cost of the medication, and may seek reimbursement from the VA. If you require more than a 14-day supply or if the prescribed medication is not immediately needed, your community provider will send a prescription to a VA pharmacy so that the VA can provide you with your routine medication. In-network locations can be found at https://www.va.gov/find-loca tions/ Medical Devices: Your community provider may recommend that medical devices, adapted equipment, or other items be provided for the treatment or rehabilitation of your medical condition. Veterans are generally required to obtain these items through the Prosthetics and Sensory Aids Service (PSAS) in your referring facility. Emergency/Inpatient Services: You, your community provider, or your family must provide notification within 72hr or ER visit and/or admission by [phone]. Thank you for the opportunity to serve you and for your service to our great nation! [facility] [address] [place] [address] KATIE JAMES [facility]
--- OUTSIDE RECORDS SUMMARY | 2025-01-26 07:36 | XMS_ITS | Encounter Summary ---
Author Name [facility] [place] [facility] [place] [facility] [place] Address [address] [place] [address] Care Team Providers Care Branch Library Clerk Name Role Phone DENYSVINNY WittINE Primary Care [...] PART A Mar 14, 2004 PART A [id number] MAGNO PATEL PATIENT MEDICARE (WNR) MEDICARE (M) PART A Mar 14, 2004 PART A [id number] [phone] MAGNO PATEL PATIENT MEDICARE (WNR) MEDICARE (M) PART A Mar 14, 2004 PART A [id number] [facility] [phone] MAGNO PATEL PATIENT MEDICARE (WNR) MEDICARE (M) PART A Mar 14, 2004 PART A [id number] LOWMAGNO Moore PATIENT MEDICARE (WNR) MEDICARE (M) PART A Mar 14, 2004 PART A [id number] [facility] [phone] LOWMAGNO Moore PATIENT MEDICARE (WNR) MEDICARE (M) PART A Mar 14, 2004 PART A [id number] [facility] LOWMAGNO Moore PATIENT MEDICARE (WNR) MEDICARE (M) PART A Mar 14, 2004 PART A [id number] LOWMAGNO Moore PATIENT MEDICARE (WNR) MEDICARE (M) PART A Mar 14, 2004 PART A [id number] [facility] MAGNO PATEL PATIENT Selected Encounter This section includes the information on record at [place] for the Encounter. Date/Time Encounter Type Encounter Description Reason Pro vider Source Jan 26, 2025 12:36 PM Outpatient Encounter COMMUNITY CARE CONSULT IHE Encounter Template Text not used by [place] Plan of Treatment: Future Appointments (+ 6 months) and Future Tests (+/- 45 days) The Plan of Treatment section includes future care activities for the patient from all [place] treatmentfacilities. This section includes future appointments and future orders which are active, pending or scheduled. Future Appointments This section includes appointments that were scheduled to occur 6 months from the date of the Encounter, up to a maximum of 20 appointments. The data comes from all [place] treatment facilities. Appointment Date/Time Appointment Type Appointme nt Facility Name Feb 21, 2025 03:30 PM AMBULATORY - MEDICINE [facility] Mar 15, 2025 10:00 AM AMBULATORY - NONE [facility] Mar 15, 2025 11:00 AM AMBULATORY - MEDICINE [facility] Jun 25, 2025 09:00 AM AMBULATORY - MEDICINE [facility] Jul 09, 2025 09:00 AM AMBULATORY - MEDICINE [facility] Active, Pending, and Scheduled Orders This section includes a listing of several types of active, pending, and scheduled orders, including clinic medications orders, diagnostic test orders, procedure orders and consult orders; where the start date of the order is 45 days before the date of the Encounter or 45 days after the date of theEncounter. The data comes from all [place] treatment facilities. Test Date/Time Test Type Test Details Facility Name Dec 20, 2024 11:49 AM Consult Order COMMUNITY CARE-NEPHROLOGY DIALYSIS OVERSIGHT [id number] Cons Neckties Painter's Choice [facility] Jan 18, 2025 08:28 AM Consult Order COMMUNITY CARE-HEMODIALYSIS [id number] Cons Neckties Painter's Choice [facility] Jan 18, 2025 08:28 AM Consult Order COMMUNITY CARE-NEPHROLOGY DIALYSIS OVERSIGHT [id number] Cons Neckties Painter's Choice [facility] Advance Directives: All historical and current Section Date Range: From patient's date of to the date document was created. This section includes ALL of a patient's completed or amended [place] Advance and Rescinded Directives. The entries below indicate that a directive exists for the patient, but an actual copy is not included with this document. The data comes from all [place] facilities. Date Advance Directives Provider Source Jun 03, 2012 ADVANCE DIRECTIVE RYAN TAPIA NS [facility] May 28, 2012 ADVANCE DIRECTIVE KINGJAMARIWILLIAMS PEDERSONU FF [facility] Apr 14, 2012 ADVANCE DIRECTIVE DISCUSSION RYAN TAPIA [facility] Dec 02, 2010 ADVANCE DIRECTIVE DISCUSSION RYAN TAPIA [facility] Encounter Notes: All associated encounter notes This section contains the clinical notes associated to the Encounter. Date/Time Encounter Note(s) Provider Source Jan 26, 2025 12:36 PM LETTERS: LOCAL TITLE: COMMUNITY CARE-REFERRAL PB (AUTO-PRINT) STANDARD TITLE: LETTERS DATE OF NOTE: JAN 26, 2025@12:36:30 ENTRY DATE: JAN 26, 2025@12:36:30 AUTHOR: KATIE JAMES EXP COSIGNER: URGENCY: STATUS: COMPLETED Magno Patel [address] [place] [id number] Dear MAGNO PATEL, Your VA provider has referred you to a provider within the community for care. Your medical care for NEPHROLOGY DIALYSIS OVERSIGHT has been authorized with the Community Care Provider listed below. DO NOT REPORT TO THE [facility] Provider info: ANNUAL RENEWAL NOT AN APPOINTMENT Annual renewal starts on: Mar 15, 2025 11:00 AM Office Name: [facility] Address: [address] Address: [place] [address] Auth #: [id number] Referral Issue Date: 2025-01-26 Expiration Date: 2026-03-15 If you are unable to keep this appointment or the appointment is no longer needed, please contact the community provider above for notification/rescheduling and then call the [facility] [place] Community Care Office at [phone] Ext [phone]. If you need additional care/services not mentioned [...] 72hr or ER visit and/or admission by [phone]. Thank you for the opportunity to serve you and for your service to our great nation! [facility] Care [facility] [address] [facility] [place] [address] KATIE JAMES [facility]
[2025-01-30] VITALS (37 sets, daily range): BP systolic 106–206; BP diastolic 50–90; PULSE 65–81; RESP 16–25; TEMP 36.3–37.3; O2SAT 84–100; BMI 17.3; BMI 17.2
--- OUTSIDE RECORDS SUMMARY | 2025-01-30 05:33 | XMS_ITS | Continuity of Care Document ---
Author Organization [facility]. If a dditional information is needed, contact Health Information Management at [phone] [place] [address] Phone Care Team Providers Care Rf Manager Name Role Phone Unavailable Unavailable Unavailable Problems Poor hypertension control Onset:23-Jul-2019 Magaly Fairchild PA-C Transient cerebral ischemia Onset:23-Jul-2019 Magaly Fairchild PA-C Acute kidney injury Onset:23-Jul-2019 Magaly Fairchild PA-C Allergies and Adverse Reactions No Known Allergies(Allergy) Onset: 23-Jul-2019 Medications amLODIPine 5 MG Oral Tablet; 10 MILLIGRAM PO DAILY Start:24-Jul-2019 Comments:10 MG PO DAILY vitamin B12 2 MG Extended Re lease Oral Tablet;2000 MICROGRAM PO DAILY Start:24-Jul-2019 Comments:2000 MCG PO DAILY metoprolol tartrate 50 MG Or al Tablet;50 MILLIGRAM PO DAILY Start:23-Jul-2019 Comments:50 MG PO DAILY amLODIPine 5 MG Oral Tablet; 5 MILLIGRAM PO DAILY Start:23-Jul-2019 Comments:5 MG PO DAILY allopurinol 100 MG Oral Tabl et;100 MILLIGRAM PO DAILY Start:23-Jul-2019 Status:Discontinued Comments:100 MG PO DAILY Social History Smoking Status Tobacco smoking consumption unknown Recorded: Jul-2019
--- OUTSIDE RECORDS SUMMARY | 2025-01-30 05:33 | XMS_ITS | Continuity of Care Document ---
Author Name [facility] Organization [facility] Care Team Providers Care Stations Superintendent Name Role Phone [facility] Unavailable Unavailable Problems Combined list of problems from Department of Defense and Veterans Affairs facilities. It does not include entries that were removed or entered in error. Problem Status Onset Date Problem Type Date of Resolution Comments Source Acute injury of kidney Active Condition [facility] Anemia Active Condition [facility] Aortic valve stenosis Active Condition Nov 25, 2023 En tered By: JOSE ARMANDO FORTUNE Comment: Mild to moderate echocardiogram 11/2023 [facility] Benign essential hypertension (SNOMED CT 4937553) Active Condition [facility] Bilateral knee pain Active Condition [facility] Bilateral tinnitus Active Condition [facility] Cellulitis and abscess of leg, except foot (ICD-9-CM 682.6) [facility] Chronic diastolic heart failure Active Condition [facility] Chronic hypoxemic respiratory failure Active Condition [facility] Chronic kidney disease stage 3A Active Condition [facility] Chronic kidney disease stage 5 Active Condition [facility] 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 [facility] Colonoscopy normal Active Condition October 14, 2015 En tered By: REDDY HORNE Comment: 2006 normal no polyps [facility] Coronary artery disease Active Condition Dec 13, 2023 En tered By: JOSE ARMANDO FORTUNE Comment: Non-STEMI 12/03/2023 [facility] Eczema Active Condition [facility] Essential hypertension Active Condition [facility] Generalized pruritus Active Condition [facility] Gout Active Condition [facility] Gout * (ICD-9-CM 274.9) Active Condition [facility] Hearing loss Active Condition [facility] Hyperlipidemia Active Condition Jan Entered By: REDDY HORNE Comment: statin intolerant face swelling x2 [facility] Hyperlipidemia (SNOMED CT 54156160) Active Condition [facility] Hypertension Active Condition October 14, 2015 Entered By: REDDY HORNE Comment: 2017 Entered By: REDDY HORNE Comment: 07/01 pre op MPS neg for ischmia mild hypokinesis septum [facility] Inactive tuberculosis of lung Active Condition October 14, 2015 En tered By: REDDY HORNE Comment: 1992 had RuL bbx and neg for active TB and malignancyMa2015 Entered By: REDDY HORNE Comment: 1989 [place]:6 mos INH [facility] Inguinal hernia Active Condition Sep 13, 2024 Entered By: JOSE ARMANDO FORTUNE Comment: large left [facility] Insomnia (SCT 753397018) Active Condition [facility] Low back pain Active Condition [facility] Moderate chronic obstructive pulmonary disease Active Condition October 14, 2015 En tered By: REDDY HORNE Comment: PFT's 08/27 [facility] Multiple renal cysts Active Condition Jun 01, 2017 En tered By: REDDY HORNE Comment: CTA 05/30 complex and siple cysts f/u [facility] 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 [facility] Obstructive sleep apnea Active Condition [facility] Osteoarthritis (SNOMED CT 405628985) Active Condition [facility] Osteoarthritis of right hip joint (SNOMED CT 176941514111826) Active Condition [facility] Pain in joint involving lower leg Active Condition Nov 23, 2000 En tered By: AMIRA JOHNSON Comment: bilateral hx total knee replace 1992 [facility] Peripheral arterial occlusive disease Active Condition [facility] Peripheral neuropathy Active Condition [facility] Peripheral vascular disease Active Condition October 13 6 Entered By: REDDY HORNE Comment: PCI's [place] Mid high grade setnosis fem-pop junction 75% stenosis R common iliac and Total occlusion L common iliac. R sided PCI both legs better with PCIAug 2015 Entered By: REDDY HORNE Comment: 09/27 R RIOS stent and R EIA stent with improvement on ABIMar 2016 Entered By: REDDY HORNE Comment: Keira 07/31 Non compress mod disease toes bilatDec 2016 Entered By: REDDY HORNE Comment: 05/30 CTA angio Occluded L distal common and ext iliacs with recollateralization of EMULSION COATER has progressed; r common iliac with sign stenoses, SFA with multiple up to high grade stenosies no sign changeMar 2017 Entered By: REDDY HORNE Comment: 08/29 KEIRA mod disease bilat [facility] Peripheral vascular disease Active Condition [facility] Polyarthralgia (ICD-9-CM 719.49) Active Condition [facility] [facility] Renal failure Active Condition Jul Entered By: JOSE ARMANDO FORTUNE Comment: hemodialysis [facility] 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 [facility] Transient cerebral ischemia Active Condition Jul 18, 2024 En tered By: JOSE ARMANDO FORTUNE Comment: Hypertensive induced [facility] Vitamin B12 deficiency (non anemic) Active Condition [facility] Alcohol Abuse Inactive Condition 07/25/2020 [place] [facility] Dry Skin Inactive Condition 07/29/2021 [facility] Edema of face Inactive Condition 07/29/2021 [facility] [facility] [facility] Epistaxis Inactive Condition 07/25/2020 [facility] Hyponatremia (SNOMED CT 81663320) Inactive Condition 07/29/2021 [facility] Liver enzymes abnormal (SNOMED CT 569068274) Inactive Condition 07/29/2021 [facility] Pulmonary tuberculosis (SNOMED CT 857240531) Inactive Condition 07/25/2020 [facility] Diagnosis: ICD-10-CM I95.89 Other hypotension Active Diagnosis [facility] Diagnosis: ICD-10-CM J96.11 Chronic respiratory failure with hypoxia Active Diagnosis [facility] Diagnosis: ICD-10-CM Z48.02 Encounter for removal of sutures Active Diagnosis [facility] Diagnosis: ICD-10-CM R79.89 Other specified abnormal findings of blood chemistry Active Diagnosis [facility] Diagnosis: ICD-10-CM Z48.89 Encounter for other specified surgical aftercare Active Diagnosis [facility] Diagnosis: ICD-10-CM D49.2 Neoplasm of unsp behavior of bone, soft tissue, and skin Active Diagnosis [facility] Diagnosis: ICD-10-CM L98.9 Disorder of the skin and subcutaneous tissue, unspecified Active Diagnosis [facility] Diagnosis: ICD-10-CM L76.22 Postproc hemorrhage of skin, subcu following other procedure Active Diagnosis [facility] Diagnosis: ICD-10-CM I10 Essential (primary) hypertension Active Diagnosis [facility] Diagnosis: ICD-10-CM Z48.01 Encounter for change or removal of surgical wound dressing Active Diagnosis [facility] Diagnosis: ICD-10-CM N50.89 Other specified disorders of the male genital organs Active Diagnosis [facility] Diagnosis: ICD-10-CM Z71.89 Other specified counseling Active Diagnosis [facility] Diagnosis: ICD-10-CM N50.812 Left testicular pain Active Diagnosis [facility] Diagnosis: ICD-10-CM I25.10 Athscl heart disease of [place] coronary artery w/o ang pctrs Active Diagnosis [facility] Diagnosis: ICD-10-CM J98.9 Respiratory disorder, unspecified Active Diagnosis [facility] Diagnosis: ICD-10-CM R01.1 Cardiac murmur, unspecified Active Diagnosis [facility] Medications Combined list of outpatient medications from Department of Defense and Veterans Affairs facilities.Medications provided include 1) outpatient medications from the last 15 months, and 2) patient-reported medications. Medication Details Route Status Patient Instructions Prescription Expires Prescription Number Last Dispense Date Ordering Provider Order Date Order Qty Source ALBUTEROL SO4 90MCG/ACTUA T (CFC-F) INHL,ORAL,8 .5GM INHALE 2 PUFFS ORAL INHALATI ON EVERY 4 HOURS NEEDED FOR COPD SHAKE WELL. RINSE MOUTHPIE CE FREQUENT LY TO PREVENT CLOGGING . RESPIR ATORY (INHAL ATION) DISCONT INUED 03/27/2024 [id number] JOSE ARMANDO FORTUNE 2023 3 [facility] ALBUTEROL SO4 90MCG/ACTUA T (CFC-F) INHL,ORAL,8 .5GM INHALE 2 PUFFS ORAL INHALATI ON EVERY 4 HOURS NEEDED FOR COPD SHAKE WELL. RINSE MOUTHPIE CE FREQUENT LY TO PREVENT CLOGGING . RESPIR ATORY (INHAL ATION) 06/15/2024 [id number] 4 [facility] 2023 3 [facility] Allopurinol (Alloprim) Tablet 100 mg Oral TAKE ONE TABLET BY MOUTH ONCE A DAY FOR GOUT. TAKE WITH PLENTY OF WATER. 08/11/2024 [id number] 4 [facility] [address] [place] [address] Divisio n ALLOPURINOL 100MG TAB TAKE ONE TABLET BY MOUTH ONCE A DAY FOR GOUT. TAKE WITH PLENTY OF WATER. ORAL ACTIVE 11/15/2025 [id number] 5 [facility] [address] [place] [address] ALLOPURINOL 100MG TAB TAKE ONE TABLET BY MOUTH ONCE A DAY FOR GOUT. TAKE WITH PLENTY OF WATER. ORAL DISCONT INUED 08/11/2024 [id number] 5 [facility] [address] [place] [address] ASPIRIN TAB TAKE 81MG BY MOUTH EVERY MORNING ORAL ACTIVE HARISH GARCIA 2015 [facility] atorvastati n (U/D) 40 MG ORAL TAB TAKE ONE-HALF TABLET BY MOUTH EVERY EVENING TO LOWER CHOLESTE ROL 08/11/2024 [id number] 4 [facility] [address] [place] [address] Divisio n ATORVASTATI N CA 40MG TAB TAKE ONE-HALF TABLET BY MOUTH EVERY EVENING TO LOWER CHOLESTE ROL ORAL ACTIVE 09/26/2025 [id number] 5 [facility] 2024 45 [facility] ATORVASTATI N CA 40MG TAB TAKE ONE-HALF TABLET BY MOUTH EVERY EVENING TO LOWER CHOLESTE ROL ORAL DISCONT INUED 08/11/2024 [id number] 4 [facility], JOSE ARMANDO 2023 45 [facility] CALCIUM ACETATE 667MG (CA 169MG) CAP TAKE TWO CAPSULES BY MOUTH THREE TIMES A DAY WITH MEALS AND SNACKS FOR REDUCING PHOSPHOR US. ORAL DISCONT INUED 07/26/2024 [id number] 4 [facility], JOSE ARMANDO 2023 60 [facility] CALCIUM ACETATE 667MG (CA 169MG) CAP TAKE TWO CAPSULES BY MOUTH THREE TIMES A DAY WITH MEALS AND SNACKS FOR REDUCING PHOSPHOR US. ORAL 12/20/2024 [id number] 4 [facility], JOSE ARMANDO 2023 60 [facility] Calcium Phosphate Capsule Conventiona l 667mg Oral TAKE TWO CAPSULES BY MOUTH THREE TIMES A DAY WITH MEALS AND SNACKS FOR REDUCING PHOSPHOR US. 07/26/2024 [id number] 4 CÉSAR MONSIVAIS 2023 60 [facility] Divnicolette n CARVEDILOL 25MG TAB TAKE ONE TABLET BY MOUTH TWICE A DAY FOR HEART. TAKE WITH FOOD. ORAL ACTIVE 06/07/2025 [id number] 5 Eric AREVALO Q 2023 180 [facility] CARVEDILOL 25MG TAB TAKE ONE TABLET BY MOUTH TWICE A DAY FOR HEART. TAKE WITH FOOD. ORAL 03/18/2024 [id number] 4 [facility], JOSE ARMANDO 2022 180 [facility] CHOLECALCIF JALEN 25MCG (1,000UNIT) TAB TAKE TWO TABLETS BY MOUTH DAILY ORAL ACTIVE Jinny CHAVARRIA 2020 [facility] HYDRALAZINE HCL 25MG TAB TAKE ONE TABLET BY MOUTH AT BEDTIME FOR HIGH BLOOD PRESSURE ORAL ACTIVE 08/15/2025 [id number] DEVIKA, JOSE ARMANDO 2024 90 [facility] lisinopril (U/D) 20 MG ORAL TAB TAKE ONE TABLET BY MOUTH AT BEDTIME 11/02/2024 [id number] 4 [facility]USS 2023 [facility] Judynuviadara n LISINOPRIL 20MG TAB TAKE ONE TABLET BY MOUTH AT BEDTIME ORAL DISCONT INUED BY PROVIDE R 11/02/2024 [id number] 4 KHURRAM STRAUSS 2023 90 [facility] [facility] LORATADINE 10MG TAB TAKE ONE TABLET BY MOUTH ONCE A DAY ON EMPTY STOMACH ORAL 07/01/2024 [id number] 4 KHURRAM STRAUSS LELE 2023 14 [facility] [facility] NIFEDIPINE (EQV-CC) 60MG TAB,SA TAKE TWO TABLETS BY MOUTH ONCE A DAY FOR HEART/BL OOD PRESSURE . PREFERAB LE TO TAKE ON EMPTY STOMACH. SWALLOW WHOLE; DO NOT CRUSH OR CHEW. AVOID GRAPEFRU IT JUICE. ORAL ACTIVE 09/26/2025 [id number] 5 JOSE ARMANDO FORTUNE 2024 180 [facility] NIFEDIPINE (EQV-CC) 60MG TAB,SA TAKE TWO TABLETS BY MOUTH ONCE A DAY FOR HEART/BL OOD PRESSURE . PREFERAB LE TO TAKE ON EMPTY STOMACH. SWALLOW WHOLE; DO NOT CRUSH OR CHEW. AVOID GRAPEFRU IT JUICE. ORAL DISCONT INUED BY PROVIDE R 06/07/2025 [id number] 4 Eric AREVALO Q 2023 180 [facility] NIFEDIPINE (EQV-CC) 60MG TAB,SA TAKE TWO TABLETS BY MOUTH ONCE A DAY FOR HEART/BL OOD PRESSURE . PREFERAB LE TO TAKE ON EMPTY STOMACH. SWALLOW WHOLE; DO NOT CRUSH OR CHEW. AVOID GRAPEFRU IT JUICE. ORAL 05/18/2024 [id number] 4 JOSE ARMANDO FORTUNE 2022 180 [facility] Nifedipine 60mg 24 Hour Extended Release Tablet, Oral (Nifedical XL) TAKE TWO TABLETS BY MOUTH ONCE A DAY FOR HEART/BL OOD PRESSURE . PREFERAB LE TO TAKE ON EMPTY STOMACH. SWALLOW WHOLE; DO NOT CRUSH OR CHEW. AVOID GRAPEFRU IT JUICE. 05/18/2024 [id number] 4 DEVIKAJOSE ARMANDO STEELE 2023 180 [facility] Divisio n RENAL MULTIVIT W/1MG OR LESS FOLIC ACID TAB TAKE 1 TABLET BY MOUTH ONCE A DAY ORAL 08/11/2024 [id number] 5 DEVIKA, JOSE ARMANDO 2023 100 [facility] TRAZODONE HCL 100MG TAB TAKE ONE-HALF TABLET BY MOUTH AT BEDTIME FOR INSOMNIA ORAL ACTIVE 07/11/2025 [id number] 5 DEVIKAJOSE ARMANDO STEELE 2024 45 [facility] Allergies, Adverse Reactions, Alerts Combined list of allergies from Department of Defense and Veterans Affairs facilities. It does not include entries that were removed or entered in error. Substance Category Reaction Severity Reaction type Status Date Reported Comments Source ALLOPURINOL Propensity to adverse reactions to drug (finding) active 6 [facility] AMOXICILLIN Propensity to adverse reactions to drug (finding) active 6 [facility] AMOXICILLIN (AMOXICILLIN TRIHYDRATE) Drug allergy (disorder) Unknown active 6 [facility] [place] AMOXICILLIN TRIHYDRATE Propensity to adverse reactions to drug (finding) active 6 [facility] COLCHICINE Propensity to adverse reactions to drug (finding) SWELLING (NON-SPEC IFIC) active 1 [facility] COLCHICINE Propensity to adverse reactions to drug (finding) active 6 [facility] FEBUXOSTAT Propensity to adverse reactions to drug (finding) Facial swelling active 8 [facility] IBUPROFEN Propensity to adverse reactions to drug (finding) active 6 [facility] KEFLEX Propensity to adverse reactions to drug (finding) SWELLING (NON-SPEC IFIC) active 1 [facility] KEFLEX Propensity to adverse reactions to drug (finding) active 6 [facility] MOTRIN Propensity to adverse reactions to drug (finding) active 6 [facility] 15 OTHER Drug allergy (disorder) Unknown active 6 [facility] PROBENECID Propensity to adverse reactions to drug (finding) Facial swelling MILD active 6 [facility] 15 Immunizations Combined list of available immunizations from the Department of Defense and Veterans Affairs facilities. Immunization Series Date Given Administered By Site Reaction Lot Number CVX Code Drug Termite Control Servicer Status Comments Source HEPB-CPG 4 2022 RIGHT DELTO ID 189 complet ed HISTORICA L INFORMATI ON - FROM OTHER PROVIDER, Lot#: [id number] Expiratio n Date: 05/15/24 [facility] INFLUENZA VACCINE, QUADRIVALENT, ADJUVANTED 2021 MEGAN PACK RIGHT DELTO ID [id number] 205 complet ed [facility] N INFLUENZA, UNSPECIFIED FORMULATION 2021 88 complet ed HISTORICA L INFORMATI ON - FROM OTHER PROVIDER, [facility] HEPB-CPG 3 2021 RIGHT DELTO ID 189 complet ed HISTORICA L INFORMATI ON - FROM OTHER PROVIDER, Lot#: [id number] Expiratio n Date: 04/23/24 [facility] HEPB-CPG 2 2021 RIGHT DELTO ID 189 complet ed HISTORICA L INFORMATI ON - FROM OTHER PROVIDER, Lot#: [id number] Expiratio n Date: 08/28/23 [facility] HEPB-CPG 1 2021 RIGHT DELTO ID 189 complet ed HISTORICA L INFORMATI ON - FROM OTHER PROVIDER, Lot#: [id number] Expiratio n Date: 08/28/23 [facility] INFLUENZA, UNSPECIFIED FORMULATION 2019 88 complet ed [facility] TDAP (HISTORICAL) 2015 115 complet ed [facility] PNEUMOCOCCAL, UNSPECIFIED FORMULATION 2013 109 complet ed [facility] TDAP 2013 115 complet ed Right Deltoid [facility] PNEUMOCOCCAL POLYSACCHARID E [id number] 2013 33 complet ed [facility] INFLU[facility], UNSPECIFIED FORMULATION 2005 88 complet ed [facility] PNEUMOCOCCAL, UNSPECIFIED FORMULATION 2004 JAMCARLA Selby 109 complet ed [facility] Rebekah [facility] Results Combined list of recent chemistry, hematology and other laboratory results from Department of Defense and Veterans Affairs, ranging from 15 months to all on record, depending upon the facility. Order Name Results Value Reference Range Date Interpretation Specimen Comments Source HGA1C HEMOGLOBIN A1C/HEMOGLOBI N.TOTAL IN BLOOD 4.1 4.0 - 6.0 07/04 Specimen Type: BLOOD No comment entered. Ordering Provider: JOSE ARMANDO FORTUNE Report Released Date/Time : Jul 19, 2023 09:44 AM Reporting Lab: [place] [facility] [address] [place] [address] Performin g Lab: [place] [facility] [address] [place] [address] [facility] TSH (MA-PB) THYROTROPIN [UNITS/VOLUME ] IN SERUM OR PLASMA 3.286 u[IU]/ mL 0.47 - 5 07/04 Specimen Type: SERUM No comment entered. Ordering Provider: JOSE ARMANDO FORTUNE Report Released Date/Time : Jul 19, 2023 09:44 AM Reporting Lab: [place] [facility] [address] [place] [address] Performin g Lab: [place] [facility] [address] [place] [address] [facility] CHOLESTEROL PANEL (PB) CHOLESTEROL [MASS/VOLUME] IN SERUM OR PLASMA 119 mg/dL 0 - 200 07/04 Specimen Type: PLASMA No comment entered. Ordering Provider: JOSE ARMANDO FORTUNE Report Released Date/Time : Jul 19, 2023 09:44 AM Reporting Lab: [place] [facility] [address] [place] [address] Performin g Lab: [place] [facility] [address] [place] [address] [facility] CHOLESTEROL PANEL (PB) TRIGLYCERIDE [MASS/VOLUME] IN SERUM OR PLASMA 73 mg/dL 0 - 150 07/04 Specimen Type: PLASMA No comment entered. Ordering Provider: JOSE ARMANDO FORTUNE Report Released Date/Time : Jul 19, 2023 09:44 AM Reporting Lab: [place] [facility] [address] [place] [address] Performin g Lab: [place] [facility] [address] [place] [address] [facility] CHOLESTEROL PANEL (PB) CHOLESTEROL IN LDL [MASS/VOLUME] IN SERUM OR PLASMA BY CALCULATION 46.4 mg/dL 07/04 Specimen Type: PLASMA No comment entered. Ordering Provider: JOSE ARMANDO FORTUNE Report Released Date/Time : Jul 19, 2023 09:44 AM Reporting Lab: [place] [facility] [address] [place] [address] Performin g Lab: [place] [facility] [address] [place] [address] [facility] CHOLESTEROL PANEL (PB) CHOLESTEROL IN HDL [MASS/VOLUME] IN SERUM OR PLASMA 58.0 mg/dL 40 07/04 H Specimen Type: PLASMA No comment entered. Ordering Provider: JOSE ARMANDO FORTUNE Report Released Date/Time : Jul 19, 2023 09:44 AM Reporting Lab: [place] [facility] [address] [place] [address] Performin g Lab: [place] [facility] [address] [place] [address] [facility] CHOLESTEROL PANEL (PB) CHOLESTEROL IN HDL/CHOLESTER OL.TOTAL [MASS RATIO] IN SERUM OR PLASMA 48.7 25 07/04 Specimen Type: PLASMA No comment entered. Ordering Provider: JOSE ARMANDO FORTUNE Report Released Date/Time : Jul 19, 2023 09:44 AM Reporting Lab: [place] [facility] [address] [place] [address] Performin g Lab: [place] [facility] [address] [place] [address] [facility] COMPREHENSI VE METABOLIC PANEL CREATININE [MASS/VOLUME] IN SERUM OR PLASMA 2.82 mg/dL 0.7 - 1.3 07/04 H Specimen Type: PLASMA No comment entered. Ordering Provider: JOSE ARMANDO FORTUNE Report Released Date/Time : Jul 19, 2023 09:44 AM Reporting Lab: [place] [facility] [address] [place] [address] Performin g Lab: [place] [facility] [address] [place] [address] [facility] COMPREHENSI VE METABOLIC PANEL UREA NITROGEN [MASS/VOLUME] IN SERUM OR PLASMA 15 mg/dL 9 - 25 07/04 Specimen Type: PLASMA No comment entered. Ordering Provider: JOSE ARMANDO FORTUNE Report Released Date/Time : Jul 19, 2023 09:44 AM Reporting Lab: [place] [facility] [address] [place] [address] Performin g Lab: [place] [facility] [address] [place] [address] [facility] COMPREHENSI VE METABOLIC PANEL GLUCOSE [MASS/VOLUME] IN SERUM OR PLASMA 85 mg/dL 72 - 99 07/04 Specimen Type: PLASMA No comment entered. Ordering Provider: JOSE ARMANDO FORTUNE Report Released Date/Time : Jul 19, 2023 09:44 AM Reporting Lab: [place] [facility] [address] [place] [address] Performin g Lab: [place] [facility] [address] [place] [address] [facility] COMPREHENSI VE METABOLIC PANEL SODIUM [MOLES/VOLUME ] IN SERUM OR PLASMA 138 meq/L 136 - 145 07/04 Specimen Type: PLASMA No comment entered. Ordering Provider: JOSE ARMANDO FORTUNE Report Released Date/Time : Jul 19, 2023 09:44 AM Reporting Lab: [place] [facility] [address] [place] [address] 8 Performin g Lab: [place] [facility] [address] [place] [address] 8 [facility] COMPREHENSI VE METABOLIC PANEL POTASSIUM [MOLES/VOLUME ] IN SERUM OR PLASMA 4.3 meq/L 3.5 - 5 07/04 Specimen Type: PLASMA No comment entered. Ordering Provider: JOSE ARMANDO FORTUNE Report Released Date/Time : Jul 19, 2023 09:44 AM Reporting Lab: [place] [facility] [address] [place] [address] 8 Performin g Lab: [place] [facility] [address] [place] [address] 8 [place] [facility] COMPREHENSI VE METABOLIC PANEL CHLORIDE [MOLES/VOLUME ] IN SERUM OR PLASMA 97 meq/L 98 - 107 07/04 L Specimen Type: PLASMA No comment entered. Ordering Provider: JOSE ARMANDO FORTUNE Report Released Date/Time : Jul 19, 2023 09:44 AM Reporting Lab: [place] [facility] [address] [place] [address] 8 Performin g Lab: [place] [facility] [address] [place] [address] 8 [facility] COMPREHENSI VE METABOLIC PANEL CARBON DIOXIDE, TOTAL [MOLES/VOLUME ] IN SERUM OR PLASMA 27 meq/L 22 - 31 07/04 Specimen Type: PLASMA No comment entered. Ordering Provider: JOSE ARMANDO FORTUNE Report Released Date/Time : Jul 19, 2023 09:44 AM Reporting Lab: [place] [facility] [address] [place] [address] 8 Performin g Lab: [place] [facility] [address] [place] [address] [facility] COMPREHENSI VE METABOLIC PANEL CALCIUM [MASS/VOLUME] IN SERUM OR PLASMA 9.1 mg/dL 8.4 - 10.4 07/04 Specimen Type: PLASMA No comment entered. Ordering Provider: JOSE ARMANDO FORTUNE Report Released Date/Time : Jul 19, 2023 09:44 AM Reporting Lab: [place] [facility] [address] [place] [address] 8 Performin g Lab: [place] [facility] [address] [place] [address] 8 [facility] COMPREHENSI VE METABOLIC PANEL PROTEIN [MASS/VOLUME] IN SERUM OR PLASMA 7.9 g/dL 6 - 8.6 07/04 Specimen Type: PLASMA No comment entered. Ordering Provider: JOSE ARMANDO FORTUNE Report Released Date/Time : Jul 19, 2023 09:44 AM Reporting Lab: [place] [facility] [address] [place] [address] 8 Performin g Lab: [place] [facility] [address] [place] [address] 8 [facility] COMPREHENSI VE METABOLIC PANEL ALBUMIN [MASS/VOLUME] IN SERUM OR PLASMA 3.8 g/dL 3.4 - 5 07/04 Specimen Type: PLASMA No comment entered. Ordering Provider: JOSE ARMANDO FORTUNE Report Released Date/Time : Jul 19, 2023 09:44 AM Reporting Lab: [place] [facility] [address] [place] [address] 8 Performin g Lab: [place] [facility] [address] [place] [address] 8 [facility] COMPREHENSI VE METABOLIC PANEL BILIRUBIN.TOT AL [MASS/VOLUME] IN SERUM OR PLASMA 0.8 mg/dL 0.2 - 1.2 07/04 Specimen Type: PLASMA No comment entered. Ordering Provider: JOSE ARMANDO FORTUNE Report Released Date/Time : Jul 19, 2023 09:44 AM Reporting Lab: [place] [facility] [address] [place] [address] 8 Performin g Lab: [place] [facility] [address] [place] [address] 8 [facility] COMPREHENSI VE METABOLIC PANEL ALKALINE PHOSPHATASE [ENZYMATIC ACTIVITY/VOLU ME] IN SERUM OR PLASMA 133 U/L 40 - 150 07/04 Specimen Type: PLASMA No comment entered. Ordering Provider: JOSE ARMANDO FORTUNE Report Released Date/Time : Jul 19, 2023 09:44 AM Reporting Lab: [place] [facility] [address] [place] [address] 8 Performin g Lab: [place] [facility] [address] [place] [address] 8 [facility] COMPREHENSI VE METABOLIC PANEL ASPARTATE AMINOTRANSFER ASE [ENZYMATIC ACTIVITY/VOLU ME] IN SERUM OR PLASMA 21 U/L 5 - 34 07/04 Specimen Type: PLASMA No comment entered. Ordering Provider: JOSE ARMANDO FORTUNE Report Released Date/Time : Jul 19, 2023 09:44 AM Reporting Lab: [place] [facility] [address] [place] [address] 8 Performin g Lab: [place] [facility] [address] [place] [address] 8 [facility] COMPREHENSI VE METABOLIC PANEL ALANINE AMINOTRANSFER ASE [ENZYMATIC ACTIVITY/VOLU ME] IN SERUM OR PLASMA 8 U/L 8 - 40 07/04 Specimen Type: PLASMA No comment entered. Ordering Provider: JOSE ARMANDO FORTUNE Report Released Date/Time : Jul 19, 2023 09:44 AM Reporting Lab: [place] [facility] [address] [place] [address] 8 Performin g Lab: [place] [facility] [address] [place] [address] [facility] COMPREHENSI VE METABOLIC PANEL GLOMERULAR FILTRATION RATE/1.73 SQ M.PREDICTED [VOLUME RATE/AREA] IN SERUM, PLASMA OR BLOOD BY CREATININE-BA SED FORMULA ([id number] 2020) 07/04 Specimen Type: PLASMA No comment entered. Ordering Provider: JOSE ARMANDO FORTUNE Report Released Date/Time : Jul 19, 2023 09:44 AM Reporting Lab: [place] [facility] [address] [place] [address] 8 Performin g Lab: [place] [facility] [address] [place] [address] 8 [facility] CBC LEUKOCYTES [#/VOLUME] IN BLOOD BY AUTOMATED COUNT 8.7 10*3/u L 3.6 - 11.2 07/04 Specimen Type: BLOOD No comment entered. Ordering Provider: JOSE ARMANDO FORTUNE Report Released Date/Time : Jul 19, 2023 09:44 AM Reporting Lab: [place] [facility] [address] [place] [address] 8 Performin g Lab: [place] [facility] [address] [place] [address] 8 [facility] CBC ERYTHROCYTES [#/VOLUME] IN BLOOD BY AUTOMATED COUNT 4.23 10*6/u L 4.10 - 5.70 07/04 Specimen Type: BLOOD No comment entered. Ordering Provider: JOSE ARMANDO FORTUNE Report Released Date/Time : Jul 19, 2023 09:44 AM Reporting Lab: [place] [facility] [address] [place] [address] 8 Performin g Lab: [place] [facility] [address] [place] [address] 8 [facility] CBC HEMOGLOBIN [MASS/VOLUME] IN BLOOD 12.3 g/dL 13.1 - 16.8 07/04 L Specimen Type: BLOOD No comment entered. Ordering Provider: JOSE ARMANDO FORTUNE Report Released Date/Time : Jul 19, 2023 09:44 AM Reporting Lab: [place] [facility] [address] [place] [address] 8 Performin g Lab: [place] [facility] [address] [place] [address] 8 [facility] CBC HEMATOCRIT [VOLUME FRACTION] OF BLOOD 38.8 38.2 - 48.4 07/04 Specimen Type: BLOOD No comment entered. Ordering Provider: JOSE ARMANDO FORTUNE Report Released Date/Time : Jul 19, 2023 09:44 AM Reporting Lab: [place] [facility] [address] [place] [address] 8 Performin g Lab: [place] [facility] [address] [place] [address] 8 [facility] CBC MCV [ENTITIC VOLUME] BY AUTOMATED COUNT 91.7 fL 80.0 - 100.0 07/04 Specimen Type: BLOOD No comment entered. Ordering Provider: JOSE ARMANDO FORTUNE Report Released Date/Time : Jul 19, 2023 09:44 AM Reporting Lab: [place] [facility] [address] [place] [address] 8 Performin g Lab: [place] [facility] [address] [place] [address] 8 [facility] CBC MCH [ENTITIC MASS] BY AUTOMATED COUNT 29.1 pg 27.0 - 34.0 07/04 Specimen Type: BLOOD No comment entered. Ordering Provider: JOSE ARMANDO FORTUNE Report Released Date/Time : Jul 19, 2023 09:44 AM Reporting Lab: [place] [facility] [address] [place] [address] 8 Performin g Lab: [place] [facility] [address] [place] [address] 8 [facility] CBC MCHC [MASS/VOLUME] BY AUTOMATED COUNT 31.7 g/dL 33.0 - 36.0 07/04 L Specimen Type: BLOOD No comment entered. Ordering Provider: JOSE ARMANDO FORTUNE Report Released Date/Time : Jul 19, 2023 09:44 AM Reporting Lab: [place] [facility] [address] [place] [address] 8 Performin g Lab: [place] [facility] [address] [place] [address] [facility] CBC PLATELETS [#/VOLUME] IN BLOOD BY AUTOMATED COUNT 289 10*3/u L 150 - 400 07/04 Specimen Type: BLOOD No comment entered. Ordering Provider: JOSE ARMANDO FORTUNE Report Released Date/Time : Jul 19, 2023 09:44 AM Reporting Lab: [place] [facility] [address] [place] [address] 8 Performin g Lab: [place] [facility] [address] [place] [address] 8 [facility] CBC PLATELET MEAN VOLUME [ENTITIC VOLUME] IN BLOOD BY AUTOMATED COUNT 10.4 fL 7.5 - 11.2 07/04 Specimen Type: BLOOD No comment entered. Ordering Provider: JOSE ARMANDO FORTUNE Report Released Date/Time : Jul 19, 2023 09:44 AM Reporting Lab: [place] [facility] [address] [place] [address] 8 Performin g Lab: [place] [facility] [address] [place] [address] 8 [facility] CBC ERYTHROCYTE DISTRIBUTION WIDTH [RATIO] BY AUTOMATED COUNT 16.2 11.8 - 15.1 07/04 H Specimen Type: BLOOD No comment entered. Ordering Provider: JOSE ARMANDO FORTUNE Report Released Date/Time : Jul 19, 2023 09:44 AM Reporting Lab: [place] [facility] [address] [place] [address] 8 Performin g Lab: [place] [facility] [address] [place] [address] [facility] CBC LYMPHOCYTES/1 00 LEUKOCYTES IN BLOOD BY AUTOMATED COUNT 20.2 07/04 Specimen Type: BLOOD No comment entered. Ordering Provider: JOSE ARMANDO FORTUNE Report Released Date/Time : Jul 19, 2023 09:44 AM Reporting Lab: [place] [facility] [address] [place] [address] 8 Performin g Lab: [place] [facility] [address] [place] [address] 8 [facility] CBC MONOCYTES/100 LEUKOCYTES IN BLOOD BY AUTOMATED COUNT 12.7 07/04 Specimen Type: BLOOD No comment entered. Ordering Provider: JOSE ARMANDO FORTUNE Report Released Date/Time : Jul 19, 2023 09:44 AM Reporting Lab: [place] [facility] [address] [place] [address] 8 Performin g Lab: [place] [facility] [address] [place] [address] 8 [facility] CBC NEUTROPHILS/1 00 LEUKOCYTES IN BLOOD BY AUTOMATED COUNT 64.7 07/04 Specimen Type: BLOOD No comment entered. Ordering Provider: JOSE ARMANDO FORTUNE Report Released Date/Time : Jul 19, 2023 09:44 AM Reporting Lab: [place] [facility] [address] [place] [address] 8 Performin g Lab: [place] [facility] [address] [place] [address] 8 [facility] CBC EOSINOPHILS/1 00 LEUKOCYTES IN BLOOD BY AUTOMATED COUNT 1.3 07/04 Specimen Type: BLOOD No comment entered. Ordering Provider: JOSE ARMANDO FORTUNE Report Released Date/Time : Jul 19, 2023 09:44 AM Reporting Lab: [place] [facility] [address] [place] [address] 8 Performin g Lab: [place] [facility] [address] [place] [address] 8 [facility] CBC BASOPHILS/100 LEUKOCYTES IN BLOOD BY AUTOMATED COUNT 0.8 07/04 Specimen Type: BLOOD No comment entered. Ordering Provider: JOSE ARMANDO FORTUNE Report Released Date/Time : Jul 19, 2023 09:44 AM Reporting Lab: [place] [facility] [address] [place] [address] 8 Performin g Lab: [place] [facility] [address] [place] [address] 8 [facility] CBC LYMPHOCYTES [#/VOLUME] IN BLOOD BY AUTOMATED COUNT 1.75 10*3/u L 0.77 - 4.50 07/04 Specimen Type: BLOOD No comment entered. Ordering Provider: JOSE ARMANDO FORTUNE Report Released Date/Time : Jul 19, 2023 09:44 AM Reporting Lab: [place] [facility] [address] [place] [address] 8 Performin g Lab: [place] [facility] [address] [place] [address] 8 [facility] CBC MONOCYTES [#/VOLUME] IN BLOOD BY AUTOMATED COUNT 1.10 10*3/u L 0.19 - 0.8 07/04 H Specimen Type: BLOOD No comment entered. Ordering Provider: JOSE ARMANDO FORTUNE Report Released Date/Time : Jul 19, 2023 09:44 AM Reporting Lab: [place] [facility] [address] [place] [address] 8 Performin g Lab: [place] [facility] [address] [place] [address] 8 [facility] CBC NEUTROPHILS [#/VOLUME] IN BLOOD BY AUTOMATED COUNT 5.61 10*3/u L 2.10 - 8.00 07/04 Specimen Type: BLOOD No comment entered. Ordering Provider: JOSE ARMANDO FORTUNE Report Released Date/Time : Jul 19, 2023 09:44 AM Reporting Lab: [place] [facility] [address] [place] [address] 8 Performin g Lab: [place] [facility] [address] [place] [address] 8 [facility] CBC EOSINOPHILS [#/VOLUME] IN BLOOD BY AUTOMATED COUNT 0.11 10*3/u L 0.00 - 0.60 07/04 Specimen Type: BLOOD No comment entered. Ordering Provider: JOSE ARMANDO FORTUNE Report Released Date/Time : Jul 19, 2023 09:44 AM Reporting Lab: [place] [facility] [address] [place] [address] 8 Performin g Lab: [place] [facility] [address] [place] [address] 8 [facility] CBC BASOPHILS [#/VOLUME] IN BLOOD BY AUTOMATED COUNT 0.07 10*3/u L 0.00 - 0.20 07/04 Specimen Type: BLOOD No comment entered. Ordering Provider: JOSE ARMANDO FORTUNE Report Released Date/Time : Jul 19, 2023 09:44 AM Reporting Lab: [place] [facility] [address] [place] [address] 8 Performin g Lab: [place] [facility] [address] [place] [address] 8 [facility] CBC IMMATURE GRANULOCYTES/ 100 LEUKOCYTES IN BLOOD BY AUTOMATED COUNT 0.3 07/04 Specimen Type: BLOOD No comment entered. Ordering Provider: JOSE ARMANDO FORTUNE Report Released Date/Time : Jul 19, 2023 09:44 AM Reporting Lab: [place] [facility] [address] [place] [address] 8 Performin g Lab: [place] [facility] [address] [place] [address] 8 [facility] CBC IMMATURE GRANULOCYTES [#/VOLUME] IN BLOOD BY AUTOMATED COUNT 0.03 10*3/u L 0.00 - 0.05 07/04 Specimen Type: BLOOD No comment entered. Ordering Provider: JOSE ARMANDO FORTUNE Report Released Date/Time : Jul 19, 2023 09:44 AM Reporting Lab: [place] [facility] [address] [place] [address] 8 Performin g Lab: [place] [facility] [address] [place] [address] 8 [facility] CBC LEUKOCYTES [#/VOLUME] IN BLOOD BY AUTOMATED COUNT 4.5 10*3/u L 3.6 - 11.2 05/30 Specimen Type: BLOOD No comment entered. Ordering Provider: JOSE ARMANDO FORTUNE Report Released Date/Time : May 30, 2024 10:28 AM Reporting Lab: [place] [facility] [address] [place] [address] 8 Performin g Lab: [place] [facility] [address] [place] [address] 8 [facility] CBC ERYTHROCYTES [#/VOLUME] IN BLOOD BY AUTOMATED COUNT 2.85 10*6/u L 4.10 - 5.70 05/30 L Specimen Type: BLOOD No comment entered. Ordering Provider: JOSE ARMANDO FORTUNE Report Released Date/Time : May 30, 2024 10:28 AM Reporting Lab: [place] [facility] [address] [place] [address] 8 Performin g Lab: [place] [facility] [address] [place] [address] 8 [facility] CBC HEMOGLOBIN [MASS/VOLUME] IN BLOOD 8.6 g/dL 13.1 - 16.8 05/30 L Specimen Type: BLOOD No comment entered. Ordering Provider: JOSE ARMANDO FORTUNE Report Released Date/Time : May 30, 2024 10:28 AM Reporting Lab: [place] [facility] [address] [place] [address] 8 Performin g Lab: [place] [facility] [address] [place] [address] 8 [facility] CBC HEMATOCRIT [VOLUME FRACTION] OF BLOOD 26.8 38.2 - 48.4 05/30 L Specimen Type: BLOOD No comment entered. Ordering Provider: JOSE ARMANDO FORTUNE Report Released Date/Time : May 30, 2024 10:28 AM Reporting Lab: [place] [facility] [address] [place] [address] 8 Performin g Lab: [place] [facility] [address] [place] [address] 8 [facility] CBC MCV [ENTITIC VOLUME] BY AUTOMATED COUNT 94.0 fL 80.0 - 100.0 05/30 Specimen Type: BLOOD No comment entered. Ordering Provider: JOSE ARMANDO FORTUNE Report Released Date/Time : May 30, 2024 10:28 AM Reporting Lab: [place] [facility] [address] [place] [address] 8 Performin g Lab: [place] [facility] [address] [place] [address] 8 [facility] CBC MCH [ENTITIC MASS] BY AUTOMATED COUNT 30.2 pg 27.0 - 34.0 05/30 Specimen Type: BLOOD No comment entered. Ordering Provider: JOSE ARMANDO FORTUNE Report Released Date/Time : May 30, 2024 10:28 AM Reporting Lab: [place] [facility] [address] [place] [address] 8 Performin g Lab: [place] [facility] [address] [place] [address] 8 [facility] CBC MCHC [MASS/VOLUME] BY AUTOMATED COUNT 32.1 g/dL 33.0 - 36.0 05/30 L Specimen Type: BLOOD No comment entered. Ordering Provider: JOSE ARMANDO FORTUNE Report Released Date/Time : May 30, 2024 10:28 AM Reporting Lab: [place] [facility] [address] [place] [address] 8 Performin g Lab: [place] [facility] [address] [place] [address] 8 [facility] CBC PLATELETS [#/VOLUME] IN BLOOD BY AUTOMATED COUNT 238 10*3/u L 150 - 400 05/30 Specimen Type: BLOOD No comment entered. Ordering Provider: JOSE ARMANDO FORTUNE Report Released Date/Time : May 30, 2024 10:28 AM Reporting Lab: [place] [facility] [address] [place] [address] 8 Performin g Lab: [place] [facility] [address] [place] [address] 8 [facility] CBC PLATELET MEAN VOLUME [ENTITIC VOLUME] IN BLOOD BY AUTOMATED COUNT 10.8 fL 7.5 - 11.2 05/30 Specimen Type: BLOOD No comment entered. Ordering Provider: JOSE ARMANDO FORTUNE Report Released Date/Time : May 30, 2024 10:28 AM Reporting Lab: [place] [facility] [address] [place] [address] 8 Performin g Lab: [place] [facility] [address] [place] [address] 8 [facility] CBC ERYTHROCYTE DISTRIBUTION WIDTH [RATIO] BY AUTOMATED COUNT 16.2 11.8 - 15.1 05/30 H Specimen Type: BLOOD No comment entered. Ordering Provider: JOSE ARMANDO FORTUNE Report Released Date/Time : May 30, 2024 10:28 AM Reporting Lab: [place] [facility] [address] [place] [address] 8 Performin g Lab: [place] [facility] [address] [place] [address] 8 [facility] CBC LYMPHOCYTES/1 00 LEUKOCYTES IN BLOOD BY AUTOMATED COUNT 20.1 05/30 Specimen Type: BLOOD No comment entered. Ordering Provider: JOSE ARMANDO FORTUNE Report Released Date/Time : May 30, 2024 10:28 AM Reporting Lab: [place] [facility] [address] [place] [address] 8 Performin g Lab: [place] [facility] [address] [place] [address] [facility] CBC MONOCYTES/100 LEUKOCYTES IN BLOOD BY AUTOMATED COUNT 12.9 05/30 Specimen Type: BLOOD No comment entered. Ordering Provider: JOSE ARMANDO FORTUNE Report Released Date/Time : May 30, 2024 10:28 AM Reporting Lab: [place] [facility] [address] [place] [address] Performin g Lab: [place] [facility] [address] [place] [address] [facility] CBC NEUTROPHILS/1 00 LEUKOCYTES IN BLOOD BY AUTOMATED COUNT 64.3 05/30 Specimen Type: BLOOD No comment entered. Ordering Provider: JOSE ARMANDO FORTUNE Report Released Date/Time : May 30, 2024 10:28 AM Reporting Lab: [place] [facility] [address] [place] [address] Performin g Lab: [place] [facility] [address] [place] [address] [facility] CBC EOSINOPHILS/1 00 LEUKOCYTES IN BLOOD BY AUTOMATED COUNT 1.6 05/30 Specimen Type: BLOOD No comment entered. Ordering Provider: JOSE ARMANDO FORTUNE Report Released Date/Time : May 30, 2024 10:28 AM Reporting Lab: [place] [facility] [address] [place] [address] Performin g Lab: [place] [facility] [address] [place] [address] [facility] CBC BASOPHILS/100 LEUKOCYTES IN BLOOD BY AUTOMATED COUNT 0.4 05/30 Specimen Type: BLOOD No comment entered. Ordering Provider: JOSE ARMANDO FORTUNE Report Released Date/Time : May 30, 2024 10:28 AM Reporting Lab: [place] [facility] [address] [place] [address] Performin g Lab: [place] [facility] [address] [place] [address] [facility] CBC LYMPHOCYTES [#/VOLUME] IN BLOOD BY AUTOMATED COUNT 0.90 10*3/u L 0.77 - 4.50 05/30 Specimen Type: BLOOD No comment entered. Ordering Provider: JOSE ARMANDO FORTUNE Report Released Date/Time : May 30, 2024 10:28 AM Reporting Lab: [place] [facility] [address] [place] [address] Performin g Lab: [place] [facility] [address] [place] [address] [facility] CBC MONOCYTES [#/VOLUME] IN BLOOD BY AUTOMATED COUNT 0.58 10*3/u L 0.19 - 0.8 05/30 Specimen Type: BLOOD No comment entered. Ordering Provider: JOSE ARMANDO FORTUNE Report Released Date/Time : May 30, 2024 10:28 AM Reporting Lab: [place] [facility] [facility] [address] [place] [address] Performin g Lab: [place] [facility] [address] [place] [address] 8 [facility] CBC NEUTROPHILS [#/VOLUME] IN BLOOD BY AUTOMATED COUNT 2.88 10*3/u L 2.10 - 8.00 05/30 Specimen Type: BLOOD No comment entered. Ordering Provider: JOSE ARMANDO FORTUNE Report Released Date/Time : May 30, 2024 10:28 AM Reporting Lab: [place] [facility] [address] [place] [address] 8 Performin g [place]: [place] [facility] [address] [place] [address] 8 [facility] CBC EOSINOPHILS [#/VOLUME] IN BLOOD BY AUTOMATED COUNT 0.07 10*3/u L 0.00 - 0.60 05/30 Specimen Type: BLOOD No comment entered. Ordering Provider: JOSE ARMANDO FORTUNE Report Released Date/Time : May 30, 2024 10:28 AM Reporting Lab: [place] [facility] [address] [place] [address] Performin g [place]: [place] [facility] [address] [place] [address] 8 [facility] CBC BASOPHILS [#/VOLUME] IN BLOOD BY AUTOMATED COUNT 0.02 10*3/u L 0.00 - 0.20 05/30 Specimen Type: BLOOD No comment entered. Ordering Provider: JOSE ARMANDO FORTUNE Report Released Date/Time : May 30, 2024 10:28 AM Reporting Lab: [place] [facility] [address] [place] [address] 8 Performin g [place]: [place] [facility] [address] [place] [address] 8 [facility] CBC IMMATURE GRANULOCYTES/ 100 LEUKOCYTES IN BLOOD BY AUTOMATED COUNT 0.7 05/30 Specimen Type: BLOOD No comment entered. Ordering Provider: JOSE ARMANDO FORTUNE Report Released Date/Time : May 30, 2024 10:28 AM Reporting Lab: [place] [facility] [address] [place] [address] Performin g [place]: [place] [facility] [address] [place] [address] 8 [facility] CBC IMMATURE GRANULOCYTES [#/VOLUME] IN BLOOD BY AUTOMATED COUNT 0.03 10*3/u L 0.00 - 0.05 05/30 Specimen Type: BLOOD No comment entered. Ordering Provider: JOSE ARMANDO FORTUNE Report Released Date/Time : May 30, 2024 10:28 AM Reporting Lab: [place] [facility] [address] [place] [address] 8 Performin g [place]: [place] [facility] [address] [place] [address] 8 [facility] HGA1C HEMOGLOBIN A1C/HEMOGLOBI N.TOTAL IN BLOOD 5.1 4.0 - 6.0 07/12 Specimen Type: BLOOD No comment entered. Ordering Provider: JOSE ARMANDO FORTUNE Report Released Date/Time : Jul 12, 2023 08:20 AM Reporting Lab: [place] [facility] [address] [place] [address] 8 Performin g [place]: [place] [facility] [address] [place] [address] 8 [facility] B12 COBALAMIN (VITAMIN B12) [MASS/VOLUME] IN SERUM OR PLASMA 374 pg/mL 213 - 816 07/12 Specimen Type: SERUM No comment entered. Ordering Provider: JOSE ARMANDO FORTUNE Report Released Date/Time : Jul 12, 2023 08:20 AM Reporting Lab: [place] [facility] [address] [place] [address] 8 Performin g Lab: [place] [facility] [address] [place] [address] [facility] VITAMIN D, 25-HYDROXY 25-HYDROXYVIT FONSECA D3 [MASS/VOLUME] IN SERUM OR PLASMA 79.6 ng/mL 30 - 96 07/12 Specimen Type: SERUM No comment entered. Ordering Provider: JOSE ARMANDO FORTUNE Report Released Date/Time : Jul 12, 2023 08:20 AM Reporting Lab: [place] [facility] [address] [place] [address] Performin g [place]: [place] [facility] [address] [place] [address] [place] [facility] TSH (MA-PB-STL) THYROTROPIN [UNITS/VOLUME ] IN SERUM OR PLASMA 4.413 u[IU]/ mL 0.47 - 5 07/12 Specimen Type: SERUM No comment entered. Ordering Provider: JOSE ARMANDO FORTUNE Report Released Date/Time : Jul 12, 2023 08:20 AM Reporting Lab: [place] [facility] [address] [place] [address] Performin g Lab: [place] [facility] [address] [place] [address] 8 [place] [facility] Vital Signs Combined list of inpatient and outpatient Vital Signs from Department of Defense and Veterans Affairs, ranging from 12 months to all on record, depending upon the facility. Vital Sign Value Date Comments Source SYSTOLIC BLOOD PRESSURE 127 01/02/2025 15:13:52 [place] [facility] DIASTOLIC BLOOD PRESSURE 58 01/02/2025 15:13:52 [facility] PULSE OXIMETRY 95 % 01/02/2025 15:13:52 [facility] WEIGHT 132.4 01/02/2025 15:13:52 [facility] BMI 18 kg/m2 01/02/2025 15:13:52 [place] [facility] TEMPERATURE 98 01/02/2025 15:13:52 [place] [facility] PULSE 65 01/02/2025 15:13:52 [place] [facility] RESPIRATION 18 01/02/2025 15:13:52 [place] [facility] PULSE OXIMETRY 97 11/13/2024 14:47:00 [facility] PULSE 67 11/13/2024 14:47:00 [place] [facility] SYSTOLIC BLOOD PRESSURE 118 08/21/2024 16:24:00 [place] [facility] DIASTOLIC BLOOD PRESSURE 78 08/21/2024 16:24:00 [place] [facility] TEMPERATURE 98 08/21/2024 16:24:00 [place] [facility] PULSE 74 08/21/2024 16:24:00 [place] [facility] SYSTOLIC BLOOD PRESSURE 123 08/14/2024 09:36:00 [place] [facility] DIASTOLIC BLOOD PRESSURE 46 08/14/2024 09:36:00 [place] [facility] PULSE OXIMETRY 97 08/14/2024 09:36:00 [place] [facility] WEIGHT 147.3 08/14/2024 09:36:00 [place] [facility] BMI 20 kg/m2 08/14/2024 09:36:00 [place] [facility] PAIN 0 08/14/2024 09:36:00 [place] [facility] TEMPERATURE 98.1 08/14/2024 09:36:00 [place] [facility] PULSE 64 08/14/2024 09:36:00 [place] [facility] RESPIRATION 17 08/14/2024 09:36:00 [place] [facility] SYSTOLIC BLOOD PRESSURE 153 07/10/2024 10:49:00 [place] [facility] DIASTOLIC BLOOD PRESSURE 70 07/10/2024 10:49:00 [place] [facility] PULSE OXIMETRY 99 07/10/2024 10:49:00 [place] [facility] WEIGHT 147.6 07/10/2024 10:49:00 [place] [facility] BMI 20 kg/m2 07/10/2024 10:49:00 [place] [facility] PAIN 3 07/10/2024 10:49:00 [place] [facility] TEMPERATURE 97.6 07/10/2024 10:49:00 [place] [facility] PULSE 66 07/10/2024 10:49:00 [place] [facility] RESPIRATION 17 07/10/2024 10:49:00 [place] [facility] Encounters Combined list of: 1) Encounters from Department of Veterans Affairs facilities going backup to the last 18 months, not all VA inpatient encounters are included; 2) Encounters from the Department of Defense facilities going backup to 280 months. Location Location Details Encounter Type Encounter Number Reason For Visit Attending Provider ADM Date DC Date Status Disposition Source [facility] [place], DIRECT TO [facility] [id number] LEO BURGOS 05/18 DISCHARGED HOME [facility] Outpatient Encounter [id number] 08/11 [facility] Outpatient Encounter [id number] 11/01 [facility] Outpatient Encounter [id number] 11/01 [facility] OFFICE O/P EST LOW 20 MIN [id number] Diagnos is: ICD-10- CM I10 Essenti al (primar y) hyperte nsion Jose FORTUNE 11/10 [facility] Outpatient Encounter [id number] 11/14 [facility] TTE W/DOPPLER COMPLETE [id number] Diagnos is: ICD-10- CM R01.1 Cardiac murmur, unspeci ADAM Jeffery 11/23 [facility] Outpatient Encounter [id number] 12/01 [facility] Outpatient Encounter [id number] WISDOM,MITZY JIM N 12/04 [facility] [place] [facility] UNLISTED PULMONARY SVC/PX [id number] Diagnos is: ICD-10- CM J98.9 Respira tory disorde r, unspeci WILFRID Ayers 12/05 [place] [facility] OFFICE O/P EST MOD 30 MIN [id number] Diagnos is: ICD-10- CM I25.10 Athscl heart disease of [place] coronar y artery w/o ang pctrs Jose FORTUNE 12/12 [facility] Outpatient Encounter [id number] 12/14 [facility] Outpatient Encounter [id number] 12/16 [facility] Outpatient Encounter [id number] 12/21 [facility] Outpatient Encounter [id number] 12/21 [facility] En[facility] [id number] 12/21 [facility] Outpatient Encounter [id number] CONNIE RAYMUNDO 12/26 [facility] Outpatient Encounter [id number] JOLLY WILEY 12/26 [facility] Outpatient Encounter [id number] 12/27 [facility] Outpatient Encounter [id number] 02/06 [facility] Outpatient Encounter [id number] 02/07 [facility] Outpatient Encounter [id number] 02/08 [facility] Outpatient Encounter [id number] 03/08 [facility] Outpatient Encounter [id number] 03/17 [facility] OFF/OP EST MAY X REQ PHY/QHP [id number] Diagnos is: ICD-10- CM N50.812 Left testicu lar CONNIE Spencer R 04/04 [facility] Outpatient Encounter [id number] LEONARDA PABLO RIL L 04/26 [facility] Outpatient Encounter [id number] 05/15 [facility] Outpatient Encounter [id number] ELONARDA PABLO RIL L 05/22 [facility] PRO PHONE CALL 5-10 MIN [id number] Diagnos is: ICD-10- CM 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 CONNIE RAYMUNDO R 05/24 [facility] Outpatient Encounter [id number] LEONARDA PABLO RIL L 05/29 [facility] OFF/OP EST MAY X REQ PHY/QHP [id number] Diagnos is: ICD-10- CM 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 CONNIE RAYMUNDO R 05/30 [facility] Outpatient Encounter [id number] GAYPAVEL 06/05 [facility] [place] [facility] Outpatient Encounter [id number] 06/06 [place] [facility] OFFICE O/P EST MOD 30 MIN [id number] Diagnos is: ICD-10- CM 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 OFF/OP EST OCTOBER X REQ PHY/QHP [id number] Diagnos is: ICD-10- CM Z48.01 Encount er for change or removal of surgica l wound dressin g CONNIE RAYMUNDO R 06/27 [facility] Outpatient Encounter [id number] 06/29 [facility] Outpatient Encounter [id number] [id number] LORRAINE MATSON S 06/30 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, soft tissue, and skin Jose FORTUNE LIZZY 08/14 [facility] Outpatient Encounter [id number] 08/14 [facility] Outpatient Encounter [id number] [id number] 08/14 [facility] Outpatient Encounter [id number] [id number] 08/21 [facility] Outpatient Encounter [id number] LEONARDA PABLO L 08/21 [facility] Outpatient Encounter [id number] [id number] 08/21 [facility] [place] [facility] Outpatient Encounter [id number] [id number] 08/21 [place] [facility] OFF/OP EST MAY X REQ PHY/QHP [id number] Diagnos is: ICD-10- CM L76.22 Postpro c hemorrh age of skin, subcu followi ng other procedu re CUSTRED,TO RRI J 08/21 [facility] Outpatient Encounter [id number] MARK RIOS R 08/22 [facility] Outpatient Encounter [id number] LEONARDA PABLO RIL L 08/24 [facility] NURSING ASSESSMENT /EVALUATN [id number] Diagnos is: ICD-10- CM L98.9 Disorde r of the skin and subcuta neous tissue, unspeci fied Eric CARDONA 08/24 [facility] [place] [facility] Outpatient Encounter [id number] [id number] 08/25 [place] [facility] Outpatient Encounter [id number] [id number] LEONARDA PABLO RIL L 08/28 [facility] [place] [facility] Outpatient Encounter [id number] [id number] 08/28 [place] [facility] Outpatient Encounter [id number] 08/[address] [facility] OFFICE O/P EST LOW 20 MIN [id number] Diagnos is: ICD-10- CM 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, soft tissue, and skin Jose FORTUNE 09/[address] [facility] OFF/OP EST MAY X REQ PHY/QHP [id number] Diagnos is: ICD-10- CM Z48.89 Encount er for other specifi ed surgica l afterca re CONNIE RAYMUNDO R 09/01 [facility] Outpatient Encounter [id number] 09/01 [facility] Outpatient Encounter [id number] [id number] MARK RIOS R 09/05 [facility] PH1 ASSMT&MGMT NQHP 5-10 [id number] Diagnos is: ICD-10- CM 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 CONNIE Arreola 09/05 [facility] OFF/OP EST MAY X REQ PHY/QHP [id number] Diagnos is: ICD-10- CM Z48.02 Encount er for removal of sutures CONNIE RAYMUNDO 09/11 [facility] Outpatient Encounter [id number] 09/25 [facility] Outpatient Encounter [id number] 10/03 [facility] Outpatient Encounter [id number] [id number] ANGELIQUE BURNETT 10/03 [facility] Outpatient Encounter [id number] [id number] 10/11 [facility] Outpatient Encounter [id number] 10/24 [facility] Outpatient Encounter [id number] [id number] 10/25 [facility] OFF/OP EST MAY X REQ PHY/QHP [id number] Diagnos is: ICD-10- CM J96.11 Chronic respira tory failure with hypoxia CONNIE RAYMUNDO 11/13 [facility] Outpatient Encounter [id number] [id number] 11/15 [facility] En[facility] [id number] [id number] ANGELIQUE MANZO J 11/17 [facility] Out[facility] Encounter [id number] [id number] 12/05 [facility] Outpatient Encounter [id number] [id number] 12/12 [facility] En[facility] [id number] Jose FORTUNE 12/19 [facility] Outpatient Encounter [id number] [id number] 12/28 [facility] OFF/OP EST OCTOBER X REQ PHY/QHP [id number] Diagnos is: ICD-10- CM I95.89 Other hypoten Eric Tian 01/02 [facility] Outpatient Encounter [id number] 01/04 [facility] Outpatient Encounter [id number] 01/18 [facility] Outpatient Encounter [id number] ALESSANDRA MORGAN 01/19 [facility] Out[facility] Encounter [id number] 01/26 [facility] Outpatient Encounter [id number] [id number] 01/26 [facility] Procedures Combined list of: 1) Procedures from Department of Veterans Affairs facilities going back up to thelast 18 months, not all [place] non-surgical procedures are included; 2) All procedures from the Department of Defense facilities. Procedure Procedure Type Code Date Perfomer Comments Sourc e INDIVIDUAL PSYCHOTHERAPY, INSIGHT ORIENTED, BEHAVIOR MODIFYING AND/OR SUPPORTIVE, IN AN OFFICE OR OUTPATIENT FACILITY, APPROXIMATELY 75 TO 80 MINUTES [id number] WITH THE PATIENT 05/25/2006 [facility] INJECTION, VANCOMYCIN HCL, 500 MG 05/18/2006 [facility] BIOPSY OF JOINT STRUCTURE OF KNEE 06/16/1993 [facility] TOTAL KNEE REPLACEMENT 06/16/1993 DoD COMPUTERIZED AXIAL TOMOGRAPH Y OF THORAX 06/16/1993 DoD CLOSED (PERCUTANEOUS) (NEEDLE) BIOPSY OF LUNG 05/28/1993 D oD COMPUTERIZED AXIAL TOMOGRAPH Y OF THORAX 05/28/1993 DoD Social History Combined list of available smoking, tobacco, and other social history from Department of Defense and Veterans Affairs facilities. Social History Type Response Date Comment Source Tobacco smoking status NHIS VA-TOBACCO USE FORMER CIGARETTES 07/10/2024 [facility] History of tobacco use VA-TOBACCO NEVER USED OTHER TYPE 07/10/2024 [facility] History of tobacco use VA-TOBACCO FORMER USER 07/19/2023 [facility] History of tobacco use VA-TOBACCO FORMER USER 07/27/2022 [facility] History of tobacco use VA-TOBACCO NEVER USED 07/29/2021 [facility] History of tobacco use VA-TOBACCO FORMER USER 07/23/2020 [facility] History of tobacco use ORYX ADMIT TOBACCO SCREEN NO 12/26/2019 [facility] History of tobacco use VA-TOBACCO QUIT 15 YRS OR MORE 06/27/2019 [facility] History of tobacco use INPT TOBACCO SCREENED NEGATIVE 07/22/2017 SAYRA BERMUDEZ [facility] History of tobacco use INPT TOBACCO SCREENED NEGATIVE 07/19/2017 SAYRA BERMUDEZ [facility] History of tobacco use INPT TOBACCO SCREENED NEGATIVE 05/28/2017 SAYRA BERMUDEZ [facility] History of tobacco use QUIT TOBACCO >7 YEARS AGO 12/22/2016 [facility] History of tobacco use CO-NO TOBACCO USE PAST 12 MO 10/14/2015 [facility] History of tobacco use QUIT TOBACCO >7 YEARS AGO 09/25/2010 [facility] History of tobacco use QUIT TOBACCO >12 MO and <7 YRS AGO 10/17/2009 [facility] History of tobacco use CURRENT SMOKER 06/08/2006 Atherosclerosis, bronchitis, bladder cancer, CAD, emphysema, impotence, lung cancer, oral cancer, pneumonia [facility] History of tobacco use QUIT TOBACCO IN THE LAST 12 MONTHS 05/26/2006 [facility] History of tobacco use CURRENT SMOKER 04/14/2006 Pt. states, I quit yesterday. [facility] History of tobacco use CURRENT SMOKER 12/17/2004 Bronchitis [facility] History of tobacco use CURRENT SMOKER 07/04/2003 3/4 pack daily [facility] This section is an empty social history section. [facility] Plan of Care List of future care activities from Department [facility] facilities. Additional future care activities may be listed in the Assessment and Plan section. Date/Time Care Activity Care Activity Detail Facili ty 02/21/2025 AMBULATORY - MEDICINE AMBULATORY - MEDICI NE [facility] Advance Directives List of completed, amended, or rescinded Advance Directives on record at [facility] facilities. An actual copy of the Directive is not included. Date Advance Directive Provider Source 06/03/2012 ADVANCE DIRECTIVE RYAN TAPIA [facility] 05/28/2012 ADVANCE DIRECTIVE JAMARI BRISENO [facility] 04/14/2012 ADVANCE DIRECTIVE DISCUSSION RYAN TAPIA [facility] 12/02/2010 ADVANCE DIRECTIVE DISCUSSION RYAN TAPIA [facility]
--- OUTSIDE RECORDS SUMMARY | 2025-01-30 05:34 | XMS_ITS | Clinical Summary ---
Author Organization [facility], [facility] Address [address] [place] [address] Phone Care Team Providers Care Performance Management Consultant Name Role Phone Unavailable Primary Care Provider Unavailabl e Medications lisinopril 10 MG tablet Take 1 tablet (10 mg total) by mouth every night 30 tablet 11 08/17/2023 Active loratadine (Claritin) 10 MG tablet Take 1 tablet (10 mg total) by mouth 1 (one) time each day for 14 days 14 tablet 06/01/2024 Active Encounters Date Type Department Care Team Description 01/25/2025 [facility] Only [facility], [facility] [address] [place] [address] Lara Jeffers MD 01/23/2025 Treatment [facility], [facility] [address] [place] [address] Rizwana French NP End stage renal disease; Dependence on renal dialysis 01/18/2025 Treatment [facility], [facility] [address] [place] [address] Colleen Kendall NP End stage renal disease; Dependence on renal dialysis 01/18/2025 Orders Only [facility], [facility] [address] [place] [address] Lara Jeffers MD 01/04/2025 Orders Only [facility] [employer] [address] [place] [address] Lara Jeffers MD 01/02/2025 Treatment [facility], [facility] [address] [place] [address] Lara Jeffers MD End stage renal disease; Dependence on renal dialysis 12/28/2024 Orders Only [facility], [facility] [address] [place] [address] Lara Jeffers MD 12/26/[address] [place] [address], [facility] [address] [place] [address] Rizwana French, MIRELLA End stage renal disease; Dependence on renal dialysis 12/21/2024 [facility], [facility] [address] [place] [address] Lara Jeffers MD 12/19/[address] [place] [address], [facility] [address] [place] [address] Colleen Kendall NP End stage renal disease; Dependence on renal dialysis 12/07/2024 [facility], [facility] [address] [place] [phone] Lara Jeffers MD 12/05/[address] [place] [address], [facility] [address] [place] [address] Rizwana French NP End stage renal disease; Dependence on renal dialysis 11/30/2024 Orders Only [facility], [facility] [address] [place] [address] Lara Jeffers MD 11/30/[address] [place], [place] [address]rology [facility], [facility] [address] [place] [address] Lara Jeffers MD End stage renal disease; Dependence on renal dialysis 11/23/2024 Orders Only [facility], [facility] [address] [place] [address] Lara Jeffers MD 11/21/2024 Orders Only [facility], [facility] [address] [place] [address] Lara Jeffers MD 11/21/[address] [place] [address], [facility] [address] [place] [address] Rizwana French NP End stage renal disease; Dependence on renal dialysis 11/18/2024 [facility], [facility] [address] [place] [address] Lara Jeffers MD 11/16/2024 [facility], [facility] [address] [place] [address] Lara Jeffers MD 11/14/[address] [place] [address], [facility] [address] [place] [address] Rizwana French NP End stage renal disease; Dependence on renal dialysis 11/09/2024 Orders Only [facility], [facility] [address] [place] [address] Lara Jeffers MD 11/09/[address] [place], [place] [address]rology [facility], [facility] [address] [place] [address] Lara Jeffers MD End stage renal disease; Dependence on renal dialysis 11/02/2024 Orders Only [facility], [facility] [address] [place] [address] Lara Jeffers MD 10/31/[address] [place], [place] [address]rology [facility], [facility] [address] [place] [address] Colleen Kendall NP End stage renal disease; Dependence on renal dialysis from Last 3 Months Social History Tobacco Use Types Packs/Day Years Used Date Smoking Tobacco: Never Assessed Sex and Gender Information Value Date Recorded Sex Assigned at Not on file Legal Sex Male 10:37 AM EDT Gender Identity Not on file Sexual Orientation Not on file Plan of Treatment Health Maintenance Due Date Last Done Comments Pneumococcal Vaccine: 50+ Years (1 of 2 - PCV) 958 Hepatitis B Vaccine (1 of 5 - Risk Dialysis 4-dose series) 1960 Influenza Vaccine (#1) 2025 Procedures Procedure Name Priority Date/Time Associated Diagnosis Comments HEMATOLOGY Routine 01/25/2025 [facility] RESULTS Routine 01/18/2025 HD KINETICS Routine 01/18/2025 POST CHEMISTRY Routine 01/18/2025 CHEMISTRY Routine 01/18/2025 HEMATOLOGY Routine 01/18/2025 HEMATOLOGY Routine 01/04/2025 HEMATOLOGY Routine 12/28/2024 [facility] RESULTS Routine 12/21/2024 HD KINETICS Routine 12/21/2024 CHEMISTRY Routine 12/21/2024 POST CHEMISTRY Routine 12/21/2024 HEMATOLOGY Routine 12/21/2024 HEMATOLOGY Routine 12/07/2024 HEMATOLOGY Routine 11/30/2024 HEMATOLOGY Routine 11/23/2024 IMMUNO CHEMISTRY Routine 11/23/2024 IMMUNO CHEMISTRY Routine 11/21/2024 [facility] RESULTS Routine 11/18/2024 HD KINETICS Routine 11/18/2024 POST CHEMISTRY Routine 11/18/2024 CHEMISTRY Routine 11/18/2024 IMMUNO CHEMISTRY Routine 11/18/2024 CHEMISTRY Routine 11/18/2024 HEMATOLOGY Routine 11/18/2024 IMMUNO CHEMISTRY Routine 11/16/2024 HEMATOLOGY Routine 11/09/2024 HEMATOLOGY Routine 11/02/2024 from Last 3 Months Results * (ABNORMAL) HEMATOLOGY (01/25/2025) Only the most recent of11 resultswithin the time period is included. Hemoglobin 10.1(L) 14.0 - 18.0 g/dL [facility] Hemoglobin x 3 30.3(L) 42.0 - 54.0 % [facility] Reticulocyte Hemoglobin 30.5 25.4 - 31.8 pg [facility] 01/25/2025 01/26/2025 9:3 5 AM CDT Narrative [facility] - 01/26/2025 Unless otherwise specified, test(s) performed at: [facility], [address] [place] [id number] [employer] APPRENTICE: Gabriel Herring M.D. For any questions, please call customer service at FREQUENCY:OTHER Resulting Agency Comment Specimen source: Blood us Lara Jeffers MD LAB BLOOD ORDERABLES Final Re [facility] See order comments or contact performing lab Unknown, [place] * HD KINETICS (01/18/2025) Only the most recent of3 resultswithin the time period is included. % Urea Reduction 79 65 - 80 % [facility] 01/18/2025 01/19/2025 12: 11 PM CDT Narrative Resulting Agency Comment Specimen source: Plasma us Lara Jeffers MD LAB BLOOD ORDERABLES Final Re [facility] Performing Organization Address [facility] Co de Phone Number [facility] See order comments or contact performing lab Unknown, [place] * POST CHEMISTRY (01/18/2025) Only the most recent of3 resultswithin the time period is included. BUN Post Dialysis 10 6 - 19 mg/dL [facility] 01/18/2025 01/19/2025 12: 11 PM CDT Narrative [facility] - 01/20/2025 Unless otherwise specified, test(s) performed at: [facility], [address] [place], [place] [id number] MACHINE SHOP APPRENTICE: Gabriel Herring M.D. For any questions, please call customer service at FREQUENCY:MONTHLY Resulting Agency Comment Specimen source: Plasma us Lara Jeffers MD LAB BLOOD ORDERABLES Final [facility] Performing Organization Address [facility] de Phone Number [facility] See order comments or contact performing lab Unknown, [place] * (ABNORMAL) [facility] (01/18/2025) Only the most recent of4 resultswithin the time period is included. BUN 48(H) 6 - 19 mg/dL [facility] Creatinine 6.10(H) 0.60 - 1.30 mg/dL [facility] BUN/Creatinine Ratio 7.9(L) 10.0 - 20.0 [facility] Sodium 134(L) 136 - 145 mEq/L [facility] Potassium 4.7 3.5 - 5.1 mEq/L [facility] Chloride 95(L) 96 - 108 mEq/L [facility] Bicarbonate (CO2) 25 22 - 29 mEq/L [facility] Calcium 9.0 8.4 - 10.2 mg/dL [facility] Corrected Calcium 9.3 8.4 - 10.2 mg/dL [facility] Comment: Corrected Calcium is not equivalent to measured Ionized Calcium. Phosphorus 4.9(H) 2.6 - 4.5 mg/dL [facility] Calcium Phosphorus Product 44 0 - 54 [facility] Calcium Phosporus Product, Cor 46 0 - 54 [facility] Total Protein 6.8 6.0 - 8.5 g/dL [facility] Albumin 3.6 3.5 - 5.2 g/dL [facility] Globulin, Total 3.2 2.0 - 4.0 g/dL [facility] A/G Ratio 1.1 1.0 - 2.0 [facility] Iron 36(L) 45 - 160 mcg/dL [facility] UIBC 137(L) 155 - 355 mcg/dL [facility] TIBC 173(L) 185 - 515 mcg/dL [facility] Iron Saturation (TSat) 21 20 - 55 % [facility] 01/18/2025 01/19/2025 2:1 6 PM CDT Narrative [facility] - 01/19/2025 Unless otherwise specified, test(s) performed at: [facility], [address] [place] [address] MACHINE SHOP APPRENTICE: Gabriel Herring M.D. For any questions, please call customer service at FREQUENCY:MONTHLY Resulting Agency Comment Specimen source: Serum Lara Jeffers MD LAB BLOOD ORDERABLES Final Re sult [facility] See order comments or contact performing lab Unknown, [place] * [facility] Lab Results (01/18/2025) Only the most recent of3 resultswithin the time period is included. eKt/V (Tatramesh) 1.52 [facility] PCR 55.92 [facility] nPCR_HD 0.93 [facility] eNPCR 0.85 [facility] eKt/V Gotch 1.49 Know[facility]g [facility] eKdrt/V 1.49 [facility] spKt/V (Daugirdas II) 1.81 [facility] spKt/V Gotch 1.81 [facility] WSTDKT/V 2.6 [facility] 01/18/2025 01/18/2025 [facility] [place] LAB BLOOD ORDERABLES Final Result [facility] Contact Performing lab Unknown, [place] * IMMUNO CHEMISTRY (11/23/2024) Only the most recent of4 resultswithin the time period is included. Hepatitis B Surface Ab 174 mIU/mL [facility] Comment: The anti-HBs (Hepatitis B surface antibody) is greater than or equal to 10 mIU/mL and implies immunity. The patient has either had an antibody response to HBV vaccination, received a transfusion, or has recovered from HBV infection. For post-vaccination antibody testing guidelines for the general public, refer to MMWR June 05, 2005/Vol.54 (No. 16); -23, and for healthcare workers, refer to MMWR June 02, 2013/Vol.62 (No. 10); -18. Reference Range: <10 mIU/mL Non-Immune >=10 mIU/mL Immune The magnitude of the measured result above 10 mIU/mL is not indicative of the total amount of antibody present. 11/23/2024 11/24/2024 9:5 2 AM CDT Narrative [facility] - 11/24/2024 Unless otherwise specified, test(s) performed at: [facility], [address] [place] [id number] [employer]ACH[employer] APPRENTICE: Gabriel Herring M.D. For any questions, please call customer service at FREQUENCY:OTHER Resulting Agency Comment Specimen source: Serum us Lara Jeffers MD LAB BLOOD ORDERABLES Final Re [facility] See order comments or contact performing lab Unknown, [place] from Last 3 Months Insurance * Guarantor: Fermin Patel Account Type Relation to Patient Date of Phone Billing Address Personal/Family Self [address] [place] [phone] [place] [address] Regions 1,2,3 (VACCN) * Guarantor: Fermin Patel Account Type Relation to Patient Date of Phone Billing Address Personal/Family Self [address] [place] [phone] [place] [address] Regions 4 (VACCN4)
--- OUTSIDE RECORDS SUMMARY | 2025-01-30 05:35 | XMS_ITS | Encounter Summary ---
Author Organization [place] [facility], [facility] Address [address] [facility] [address] [place] [address] Phone Care Team Providers Care Manager Freelance Name Role Phone Unavailable Primary Care Provider Yohana e Encounter Details Date Type Department Care Team (Late st Contact Info) Description 01/25/2025 Orders Only [facility], [facility] [address] [facility] [address] [place] [address] Lara Jeffers MD [address] [facility] [address] [place] [address] Social History Tobacco Use Types Packs/Day Years Used Date Smoking Tobacco: Never Assessed Sex and Gender Information Value Date Recorded Sex Assigned at Not on file Legal Sex Male 10:37 AM EDT Gender Identity Not on file Sexual Orientation Not on file documented as of this encounter Plan of Treatment Not on file documented as of this encounter Procedures Procedure Name Priority Date/Time Associated Diagnosis Comments HEMATOLOGY Routine 01/25/2025 documented in this encounter Results * (ABNORMAL) HEMATOLOGY (01/25/2025) Hemoglobin 10.1(L) 14.0 - 18.0 g/dL [facility] Hemoglobin x 3 30.3(L) 42.0 - 54.0 % [facility] Reticulocyte Hemoglobin 30.5 25.4 - 31.8 pg [facility] 01/25/2025 01/26/2025 9:3 5 AM CDT Narrative [facility] - 01/26/2025 Unless otherwise specified, test(s) performed at: [facility], [address] [place] [address] HEAD CHARRER: Gabriel Herring M.D. For any questions, please call customer service at FREQUENCY:OTHER Resulting Agency Comment Specimen source: Blood us Lara Jeffers MD LAB BLOOD ORDERABLES Final Re sult [facility] See order comments or contact performing lab Unknown, [place] documented in this encounter Visit Diagnoses Not on filedocumented in this encounter
--- OUTSIDE RECORDS SUMMARY | 2025-01-30 05:35 | XMS_ITS | Patient Health Record ---
Author Organization [facility] Address [address] [place] [address] Care Team Providers Care Capital Equipment Specialist Name Role Phone Humera Montanez MD Primary Care Provider Unav ailable Fifi Fernanda Unavailable [phone] Griselda GOLDSMITHErbacon Unavailable Unavailable Allergies Allergen (clinical drug ingredient) Drug/Non Drug Allergy documented on EMR Reaction Allergy Type Onset Date Status No Known Drug Allergy Unknown Drug Allergy Active Reason For Referral No Information Medications Medication SIG (Take, Route, Frequency, Duration) Notes Start Date End Date Status Atorvastatin Calcium 40 MG Tablet 1 tablet Orally Once a day Active Omeprazole 40 MG Capsule Delayed Release 1 capsule 30 minutes before morning meal Orally Once a day Active Calcium Acetate 667 MG Tablet 2 tablets with meals Orally once a day Active Cholecalciferol 50 MCG (1999) Capsule 2 capsules Orally Once a day Active Renal Multivitamin Formula Active NIFEdipine ER 90 MG Tablet Extended Release 24 Hour 1 tablet on an empty stomach Orally Once a day Active Allopurinol 100 MG Tablet 1 tablet Orall y Once a day Active Carvedilol 25 MG Tablet 1 tablet with fo od Orally Twice a day Active Social History Tobacco Use: Social History Observation Description Date Details (start date - stop date) Former Smoker NA - NA Social History Drugs/Alcohol: Social Info Question Answer Notes Alcohol Screen (Audit-C) Did you have a drink containing alcohol in the past year? No Points 0 Interpretation Negative Tobacco Use: Social Info Question Answer Notes xTobacco Use/Smoking Are you a former smoker Problems Problem Type SNOMED Code ICD Code Onset Dates Problem Status W/U Status Risk Notes Problem End stage renal disease (31170880) End stage renal disease (N18.6) Active confirmed Problem Dependence on renal dialysis (477814196) Dependence on renal dialysis (Z99.2) Active confirmed Plan Of Treatment No Information Insurance Providers Payer Name Payer Address Payer Phone Subscriber Number Group Number Insured Name Patient Relationship to Insured Coverage Start Date Coverage End Date [employer]ACCN [employer] [address] [place] [phone] [id number] Fermin Patel Self - patient is the insured Medical (General) History Medical History History ICD Code tuberculosis blood/plasma transfusion back pain hypertension stroke chronic kidney disease Surgical History Surgery Date(Month/Year) none Hospitalization History Reason Date(Month/Year) Janessa in [place] bleed 02/06/2023
--- OUTSIDE RECORDS SUMMARY | 2025-01-30 05:35 | XMS_ITS | Encounter Summary ---
Author Organization [facility] [facility] Address [address] [address] Phone Care Team Providers Care Mortgage Loan Interviewer Name Role Phone Unavailable Primary Care Provider Unavailabl e Encounter Details Date Type Department Care Team (Late st Contact Info) Description 01/23/2025 [facility] [facility] [address] [facility] [address] [place] [address] Fletcher Blue NP [address] [address] End stage renal disease; Dependence on renal dialysis Social History Tobacco Use Types Packs/Day Years Used Date Smoking Tobacco: Never Assessed Sex and Gender Information Value Date Recorded Sex Assigned at Not on file Legal Sex Male 10:37 AM EDT Gender Identity Not on file Sexual Orientation Not on file documented as of this encounter Miscellaneous Notes * Dialysis Note - Fletcher Blue NP - 01/23/2025 12:00 AM CDT BASIC NOTE Patient: Fermin Patel : 1940 Note Author: FLETCHER BLUE NP Service Date: 01/23/2025 This patient was personally seen [id number] for a basic visit as part of routine monthly dialysis care for end stage renal disease. Attending Fashion Buying Internship: MAINOR SONG Dialysis Location: [facility] Schedule: Shift: 1 OVERVIEW Patient is stable. Patient has no complaints. COMMENTS: Seen on HD. No concerns. HOME MEDICATIONS Medications reviewed. Current [facility] Outpatient Medications albuterol sulfate 90 mcg/actuation HFA aerosol inhaler Inhale 2 puff using inhaler every four hours while awake as needed. [FOR sob, WHEEZING] allopurinol 100 mg tablet Take 1 tablet by mouth once a day. [(Gout)] atorvastatin 40 mg tablet Take 1 tablet by mouth every evening. Calcium Acetate 667 mg capsule Take 2 Capsule By Mouth Three times a day With Meals. calcium acetate 667 mg tablet Take 2 tablet by mouth twice a day with meals. [take morning and night with meals] carvedilol 25 mg tablet Take 1 tablet by mouth twice a day. [Take one tablet every morning and one tablet with dinner] hydralazine 25 mg tablet Take 1 tablet by mouth every night at bedtime. [take either hydralazine or lisinorpril not both one or the other] lisinopril 20 mg tablet Take 1 tablet by mouth every evening. [With Dinner Take Lisinopril or hydralazine not both take one or the other.] nifedipine 60 mg tablet extended release Take 2 tablet by mouth once a day. [preferable to take on an empty stomach] Renal-Kiley 0.8 mg tablet Take 1 tablet by mouth once a day. [Full Spectrum with Vitamin C] trazodone 100 mg tablet Take 1 tablet by mouth every night at bedtime as needed. [for sleep] Current [facility] Allergies Allergen: AMOXICILLIN Reaction: Unknown DIALYSIS PRESCRIPTION Treatment Data Treatment Date: 01/23/2025 started at: 5:45 AM Dialysate / Machine Temp (prescribed): 37.0*C Dialysate / Machine Temp (actual): 36.0*C BFR (prescribed): 550 BFR (average delivered): 570 DFR (prescribed): Autoflow 2.0 DFR (average delivered): 800 Prescribed Time: 03:00 Actual Time: 03:02 EDW (kg): 59.0 Dialyzer: [facility]NRe [facility] Dialysate: 2.0 K, 2.5 Ca, 1.0 Mg, 100 Dextrose (G2251) Sodium: 138 Bicarb: 32 Pre Dialysis Vitals Pre BP Sit: 122/71 Pre Wt (kg): 60.7 EDW Deviation (kg): 1.7 Temp: 97.5*F Post Dialysis Vitals Post BP Sit: 127/64 Post Wt (kg): 60.0 TREATMENT MEDICATIONS ORDERS Mircera 60 mcg IVP Every 2 weeks During Dialysis 01/09/2025 - 01/08/2026 BP AND FLUID ASSESSMENT COMMENTS: Patient adjusting hctz versus lisinopril dosing independently. Stop HCTZ, take lisinopril 20 mg daily as ordered. Monitoring Post BP Sit 127/64 - 01/23/2025 177/68 - 01/20/2025 171/72 - 01/18/2025 Post Wt (kg) 60.0 - 01/23/2025 58.2 - 01/20/2025 58.5 - 01/18/2025 EDW (kg) 59.0 - 01/23/2025 59.0 - 01/20/2025 59.0 - 01/18/2025 Deviation (kg) 1.0 - 01/23/2025 -0.8 - 01/20/2025 -0.5 - 01/18/2025 ADEQUACY ASSESSMENT spKt/V (Daugirdas II) 1.81 (01/18/25) 1.66 (12/21/24) 1.57 (11/18/24) eKdrt/V 1.49 (01/18/25) 1.36 (12/21/24) 1.24 (10/19/24) % Urea Reduction 79 (01/18/25) 77 (12/21/24) 75 (11/18/24) BUN 48 (01/18/25) 61 (12/21/24) 55 (11/18/24) BUN Post Dialysis 10 (01/18/25) 14 (12/21/24) 14 (11/18/24) Creatinine 6.10 (01/18/25) 6.35 (12/21/24) 5.76 (11/18/24) Bicarbonate (CO2) 25 (01/18/25) 22 (12/21/24) 24 (11/18/24) Sodium 134 (01/18/25) 136 (12/21/24) 136 (11/18/24) ACCESS ASSESSMENT Vascular access examined. Current access is permanent and functioning well. COMMENTS: Stable AVGraft Unknown Left Upper Arm Active (In Use) - 01/29/2022 Placed - 08/20/2020 Access Flow 973 (01/09/25) 775 (11/25/24) ? 2000 (11/04/24) ANEMIA ASSESSMENT Hemoglobin 9.8 (01/18/25) 9.5 (01/04/25) 9.7 (12/28/24) Iron Saturation (TSat) 21 (01/18/25) 42 (12/21/24) 20 (11/18/24) Ferritin 1,431 (11/18/24) 1,286 (10/19/24) 1,411 (09/21/24) Iron 36 (01/18/25) 75 (12/21/24) 33 (11/18/24) TIBC 173 (01/18/25) 180 (12/21/24) 165 (11/18/24) Reticulocyte Hemoglobin 30.1 (12/07/24) 30.6 (10/26/24) 32.3 (03/23/24) MCV 97 (01/18/25) 92 (12/21/24) 94 (11/18/24) Folate 14.4 (08/17/24) Platelets 228 (01/18/25) 222 (12/21/24) 207 (11/18/24) BMM ASSESSMENT Calcium 9.0 01/18/25 8.9 12/21/24 9.0 11/18/24 Corrected Calcium 9.3 01/18/25 9.1 12/21/24 9.4 11/18/24 Phosphorus 4.9 01/18/25 5.3 12/21/24 3.7 11/18/24 Calcium Phosphorus Product 44 01/18/25 47 12/21/24 33 11/18/24 PTH 80 11/18/24 117 08/17/24 102 05/18/24 Vitamin D, 25-OH, Total 77.9 08/17/24 Magnesium 2.0 11/18/24 2.4 08/17/24 1.9 05/18/24 Alkaline Phosphatase 104 11/18/24 109 08/17/24 120 05/18/24 Aluminum ?5 08/17/24 ?5 02/17/24 NUTRITION ASSESSMENT Albumin 3.6 01/18/25 3.7 12/21/24 3.5 11/18/24 Potassium 4.7 01/18/25 5.2 12/21/24 5.3 11/18/24 eNPCR 0.85 01/18/25 0.99 12/21/24 0.74 10/19/24 ADDITIONAL LABS WBC 8.12 (01/18/25) 10.52 (12/21/24) 8.66 (11/18/24) Hepatitis B Surface Ab 174 (11/23/24) 181 (11/21/24) 170 (11/18/24) ADDITIONAL COMMENT COMMENTS: No changes today Signed by: FLETCHER BLUE NP on 01/23/2025 at 12:07:57 PM Transcribed by: FLETCHER BLUE NP on 01/23/2025 at 12:07:57 PM documented in this encounter Plan of Treatment Not on file documented as of this encounter Visit Diagnoses Diagnosis End stage renal disease Dependence on renal dialysis documented in this encounter
--- OUTSIDE RECORDS SUMMARY | 2025-01-30 05:36 | XMS_ITS | Clinical Summary ---
Author Organization [facility] Address [address] [place] [address] Phone Care Team Providers Care Hazardous Material Specialist Name Role Phone Jesu Schmitz MD Primary Care Provider [phone] Allergies Active Allergy Reactions Criticality Noted Date Comments Amoxicillin Rash Low 05/19/2006 Cephalexin Hives High 11/23/2000 Colchicine Rash Low 11/23/2000 Medications lisinopriL (PRINIVIL) 10 mg tablet Take 10 mg by mouth daily at bedtime. 4 Active hydrALAZINE (APRESOLINE) 25 mg tablet Take 25 mg by mouth. 4 Active vitamin B complex-vitamin C-Folic Acid (Renal-Kiley) 0.8 mg Tablet Take 1 Tablet by mouth. 3 Active carvediloL (COREG) 25 mg tablet Take 25 mg by mouth. 3 Active calcium ACETATE (PHOSLO) 667 mg Capsule Take 1,334 mg by mouth. 4 Active atorvastatin (LIPITOR) 40 mg tablet Take 20 mg by mouth. 3 Active allopurinoL (ZYLOPRIM) 100 mg tablet Take 1 Tablet by mouth. 3 Active albuterol sulfate HFA 90 mcg/actuation aerosol inhaler Take 2 Puffs by inhalation every 4 hours. 4 Active NIFEdipine (ADALAT CC) 60 mg Extended Release tablet Take 120 mg by mouth. 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 02/09/2023 Melena 02/07/2023 Acute blood loss anemia 02/07/2023 ESRD (end stage renal disease) on dialysis 02/07 Acute upper GI bleed 02/07/2023 Encounters Date Type Department Care Team Description 01/16/2025 External Device Data [facility] ABSTRACTION Provider, Abstract 12/27/2024 External Device Data [facility] ABSTRACTION Provider, Abstract 12/26/2024 External Device Data [facility] ABSTRACTION Provider, Abstract 11/28/2024 External Device Data [facility] ABSTRACTION Provider, Abstract 11/14/2024 External Device Data ST[facility] ABSTRACTION Provider, Abstract 10/31/2024 External Device Data STL ABSTRACTION Provider, Abstract from Last 3 Months Social History Tobacco Use Types Packs/Day Years Used Date Smoking Tobacco: Former Cigarettes Tobacco Cessation:Counseling Given: No Sex and Gender Information Value Date Recorded Sex Assigned at Not on file Legal Sex Male 7:22 PM CDT Gender Identity Not on file Sexual Orientation Not on file Last Filed Vital Signs Vital Sign Reading Time Taken Comments Blood Pressure 122/74 10/24/2024 1:13 PM CDT Pulse 64 10/24/2024 1:13 PM CDT Temperature 36.3 C (97.4 F) 10/24/2024 1:13 PM CDT Respiratory Rate 15 02/10/2023 11:30 AM CDT Oxygen Saturation 94% 10/24/2024 1:13 PM CDT Inhaled Oxygen Concentration - - Weight 62.1 kg (137 lb) 10/24/2024 1:13 PM CDT Height 182.9 cm (6') 10/24/2024 1:13 PM CDT Body Mass Index 18.58 10/24/2024 1:13 PM CDT Plan of Treatment Health Maintenance Due Date Last Done Comments ZOSTER VACCINE (1 of 2) 1989 RSV VACCINE (60+ or ) (1 - 1-dose 75+ series) 2014 PNEUMOCOCCAL VACCINE 50+ YEA RS (2 of 2 - PCV) 07/12/2014 07/12/2013, 07/04/2013, 12/17/2004 INFLUENZA VACCINE (#1) 2025 05/26/2022 DTAP/TDAP/TD VACCINES (3 - T d or Tdap) 10/13/2025 10/14/2015, 07/12/2013 Insurance MEDICARE PART A HOSPITAL ONLY [facility] [employer] * Guarantor: DANGELO [employer]C) Account Type Relation to Patient Date of Phone Billing Address Corporate Other DEFAULT ADDRESS [address] [employer] Advance Directives For more information, please contact: [phone] * Full Code (Latest Code Status on File) Date Activated Date Inactivated Comments 02/07/2023 1:45 AM 02/10/2023 2:02 PM Care Teams Hazardous Material Specialist Relationship Specialty Start Date End Date Jesu Schmitz MD [address] [place] [address] PCP - General Internal Medicine 02/07/23
--- OUTSIDE RECORDS SUMMARY | 2025-01-30 05:36 | XMS_ITS ---
Author Name [facility] Address [address] [place] [address] Phone [phone] Organization [facility] e, NA DOCUMENT DISCLAIMER Multiple document versions may exist, please be sure you review the latest version. The information in the [facility] Continuity of Care Document represents a summary of certain health and medical information. It may not contain the complete medical history for the patient and should be independently verified. The represented time in the document is Eastern Time. PROBLEMS Problem Code Status Onset Date Hypokalemia E87.6 Active May 20 Fracture of unspecified part of neck of left femur, initial encounter for closed fracture S72.002A Active April 25, 2024 Hypertensive chronic kidney disease with stage 5 chronic kidney disease or end stage renal disease I12.0 Active February 08, 2024 Non-ST elevation (NSTEMI) myocardial infarction I21.4 Active December 15, 2023 Unspecified renal colic N23 Active Dece mb2022 Other gastritis with bleeding K29.61 Active February 06, 2023 Diverticulosis of intestine, part unspecified, without perforation or abscess with bleeding K57.91 Active February 06, 2023 Cramp and spasm R25.2 Active July 28, 2022 Allergy, unspecified, subsequent encounter T78.40XD Active July 28, 2022 Fever, unspecified R50.9 Active July 28, 2022 Chest pain, unspecified R07.9 Active Febr ua2022 Nausea R11.0 Active July 28 Pain, unspecified R52 Active July 152022 Hypotension of hemodialysis I95.3 Active July 28, 2022 Acute respiratory failure with hypoxia J96.01 Ac tive May 14, 2022 Encounter for immunization Z23 Active O ctober 2021 Mixed hyperlipidemia E78.2 Active er 2021 Insomnia, unspecified G47.00 Active January 29, 2022 Pain in unspecified joint M25.50 Active Au 2021 Unspecified protein-calorie malnutrition E46 Active January 29, 2022 Diarrhea, unspecified R19.7 Active January 29, 2022 Other disorders of phosphorus metabolism E83.39 Active January 29, 2022 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 classified elsewhere G99.0 Active January 29, 2022 Atherosclerotic heart diseas e of [place] coronary artery without angina pectoris I25.10 Active January Gout, unspecified M10.9 Active January 29, 2022 Hyperlipidemia, unspecified E78.5 Active January 29, 2022 Secondary hyperparathyroidism of renal origin N25.81 Active January 29, 2022 Essential (primary) hypertension I10 Active January 29, 2022 Iron deficiency anemia, unspecified D50.9 Activ e January 29, 2022 Anemia in chronic kidney disease D63.1 Active January 29, 2022 End stage renal disease N18.[address] 2021 Hypertensive chronic kidney disease with stage 1 through stage 4 chronic kidney disease, or unspecified chronic kidney disease I12.9 Active Janus t 2021 ALLERGIES AND ADVERSE REACTIONS Substance Reaction Severity Status AMOXICILLIN Unknown Active SOCIAL HISTORY Tobacco Use Status Tobacco Type Unknown if ever consumed tobacco - 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 Characteristics No Information Available Characteristics of Home environment No Information Available Gender and Sex Information Gender Identity Sexual Orientation Male Decline to answer MEDICATIONS Prescribed Medications for Dialysis Treatments Medication Instructions Dosage Route Start Date End Date Stat Clonidine HCl PRN-october repeat x1 systolic > 180 or dystolic > 100 0.1 mg Oral March 25, 2024 March 24, 2025 Active Mircera During Dialysis, Every 2 weeks 60 mcg Intravenous - push January 09, 2025 January 08, 2026 Active Home Medications Medication Instructions Dosage Route Start Date End Date Stat albuterol sulfate 90 mcg/actuation Inhale using inhaler every four hours while awake as needed 2 puff INHALATION December 30, 2023 Active allopurinol 100 mg Take by mouth once a day 1 tablet ORAL June 16, 2022 Active atorvastatin 40 mg Take by mouth every evening 1 tablet ORAL October 19, 2024 Active calcium acetate 667 mg Take by mouth twice a day with meals 2 tablet ORAL November 18, 2024 Active Calcium Acetate 667 mg Take By Mouth Three times a day With Meals 2 Capsule By Mouth June 22, 2024 June 19, 2025 Active carvedilol 25 mg Take by mouth twice a day 1 tablet ORAL September 19, 2024 Active lisinopril 20 mg Take by mouth every evening 1 tablet ORAL September 19, 2024 Active nifedipine 60 mg Take by mouth once a day 2 tablet ORAL January 25, 2025 Active Renal-Kiley 0.8 mg Take by mouth once a day 1 tablet ORAL June 16, 2022 Active trazodone 100 mg Take by mouth every night at bedtime as needed 1 tablet ORAL December 21, 2024 Active hydralazine 25 mg Take by mouth every night at bedtime 1 tablet ORAL January 25, 2025 Discontinued VITAL SIGNS Post-Treatment Vital Signs Vital Sign Value Date / Time Blood Pressure-sitting 136/64 mmHg January 05:56 AM Blood Pressure-standing 130/59 mmHg January 122024 05:56 AM Heart Rate 74 beats per minute January 27 025 05:56 AM Respiratory Rate 18 breaths per minute January 05:56 AM Temperature 97.8 deg. F January 27, 2025 05:56 AM Weight Vital Sign Value Date / Time Estimated Dry Weight 59 kg January 13, 2025 11:59 PM Pre-Dialysis 61.30 kg January 27, 2025 05:56 AM Post-Dialysis 59.10 kg January 27, 2025 05:56 AM Other Other Value Date / Time Height 183 cm December 06, 2024 12 :00 AM [facility]ER[facility] LAB RESULTS Hematology Result Type Result Value Relevant Referen ce Range Interpretation Date Folate, Serum 14.4 ng/mL No Reference Ran ge Provided - August 17, 2024 Ferritin 1277 ng/mL 22 - 322 ng/mL High August 17, 2024 UIBC/TIBC 141 mcg/dL 155 - 355 mcg/dL Low August TIBC (Calc) 179 mcg/dL 185 - 515 mcg/dL Low August Transferrin Sat. (Calc) 21 % 20 - 55 % - August 17, 2024 WBC (No Diff) 7.87 1000/mcL 4.80 - 10.80 1000/mcL - August 17, 2024 Neutrophils 59.8 % 40.0 - 75.0 % - August 17, 2024 Platelets 194 1000/mcL 130 - 400 1000/mcL - Maximus 2024 WBC (No Diff) 9.01 1000/mcL 4.80 - 10.80 1000/mcL - September 14, 2024 UIBC/TIBC 146 mcg/dL 155 - 355 mcg/dL Low September TIBC (Calc) 180 mcg/dL 185 - 515 mcg/dL Low September Platelets 245 1000/mcL 130 - 400 1000/mcL - Apri l 2024 Transferrin Sat. (Calc) 19 % 20 - 55 % Low September 14, 2024 Neutrophils 66.2 % 40.0 - 75.0 % - September 14, 2024 Ferritin 1411 ng/mL 22 - 322 ng/mL High September 21, 2024 TIBC (Calc) 161 mcg/dL 185 - 515 mcg/dL Low October 19, 2024 Transferrin Sat. (Calc) 16 % 20 - 55 % Low October 19, 2024 Platelets 208 1000/mcL 130 - 400 1000/mcL - October 19, 2024 UIBC/TIBC 136 mcg/dL 155 - 355 mcg/dL Low October 19, 2024 Neutrophils 75.6 % 40.0 - 75.0 % High October 19 WBC (No Diff) 11.35 1000/mcL 4.80 - 10.80 1000/mcL High October 19, 2024 Ferritin 1286 ng/mL 22 - 322 ng/mL High October 19 25 Hemoglobin x 3 32.4 % 42.0 - 54.0 % Low November 02, 2024 Hemoglobin x 3 29.4 % 42.0 - 54.0 % Low November 09, 2024 RDW 18.2 % 11.5 - 14.5 % High November 18 25 Hemoglobin x 3 29.7 % 42.0 - 54.0 % Low November Platelets 207 1000/mcL 130 - 400 1000/mcL - November 18, 2024 Ferritin 1431 ng/mL 22 - 322 ng/mL High November 18 025 TIBC (Calc) 165 mcg/dL 185 - 515 mcg/dL Low November Transferrin Sat. (Calc) 20 % 20 - 55 % - November 18, 2024 Eosinophil 2.9 % 0.0 - 7.0 % - November 18, 2024 Monocytes 10.4 % 3.0 - 10.0 % High November 18 RAMONA 1.8 % 0.0 - 4.0 % - November 18, 2024 Basophils 1.5 % 0.0 - 1.5 % - November 18, 2024 WBC (No Diff) 8.66 1000/mcL 4.80 - 10.80 1000/mcL - November 18, 2024 MCHC 30.7 g/dL 30.0 - 36.0 g/dL - November 18, 2024 MCH 28.9 pg 27.0 - 31.0 pg - November 18 Iron 33 mcg/dL 45 - 160 mcg/dL Low November 18, 2024 UIBC/TIBC 132 mcg/dL 155 - 355 mcg/dL Low November 18, 2024 Neutrophils 68.7 % 40.0 - 75.0 % - November 18 Lymphocytes 14.7 % 19.0 - 48.0 % Low November 18 Hemoglobin x 3 28.5 % 42.0 - 54.0 % Low November Hemoglobin x 3 30.3 % 42.0 - 54.0 % Low November Retic HGB 30.1 pg 25.4 - 31.8 pg - December 07 Hemoglobin x 3 32.1 % 42.0 - 54.0 % Low November MCH 29.3 pg 27.0 - 31.0 pg - December 21 Platelets 222 1000/mcL 130 - 400 1000/mcL - December 21, 2024 Hemoglobin x 3 31.2 % 42.0 - 54.0 % Low December RDW 16.3 % 11.5 - 14.5 % High December 21 MCHC 31.6 g/dL 30.0 - 36.0 g/dL - December 21, 2024 Iron 75 mcg/dL 45 - 160 mcg/dL - December 21, 2024 TIBC (Calc) 180 mcg/dL 185 - 515 mcg/dL Low December UIBC/TIBC 105 mcg/dL 155 - 355 mcg/dL Low December 21, 2024 Transferrin Sat. (Calc) 42 % 20 - 55 % - December 21, 2024 WBC (No Diff) 10.52 1000/mcL 4.80 - 10.80 1000/mcL - December 21, 2024 RAMONA 1.2 % 0.0 - 4.0 % - December 21, 2024 Basophils 3.0 % 0.0 - 1.5 % High December 21, 2024 Eosinophil 2.6 % 0.0 - 7.0 % - December 21, 2024 Monocytes 10.3 % 3.0 - 10.0 % High December 21 Lymphocytes 13.5 % 19.0 - 48.0 % Low December 21 025 Neutrophils 69.4 % 40.0 - 75.0 % - December 21 Hemoglobin x 3 29.1 % 42.0 - 54.0 % Low December HGB 9.5 g/dL 14.0 - 18.0 g/dL Low January 04, 2025 Hemoglobin x 3 28.5 % 42.0 - 54.0 % December Neutrophils 68.9 % 40.0 - 75.0 % - January 18, 2025 Lymphocytes 14.9 % 19.0 - 48.0 % January 18, 2025 RAMONA 2.5 % 0.0 - 4.0 % - January 18 WBC (No Diff) 8.12 1000/mcL 4.80 - 10.80 1000/mcL - January 18, 2025 RBC 3.24 mill/mcL 4.70 - 6.10 mill/mcL Low January 18, 2025 HCT 31.3 % 42.0 - 52.0 % January 18, 2025 MCH 30.2 pg 27.0 - 31.0 pg - January 18, 2025 MCHC 31.2 g/dL 30.0 - 36.0 g/dL - January Monocytes 9.8 % 3.0 - 10.0 % - January 18 Eosinophil 3.1 % 0.0 - 7.0 % - January 18 25 Basophils 0.8 % 0.0 - 1.5 % - January 18 RDW 17.5 % 11.5 - 14.5 % High January 18, 2025 HGB 9.8 g/dL 14.0 - 18.0 g/dL January Hemoglobin x 3 29.4 % 42.0 - 54.0 % Low January 18, 2025 Platelets 228 1000/mcL 130 - 400 1000/mcL - 2024 Transferrin Sat. (Calc) 21 % 20 - 55 % - January 18, 2025 TIBC (Calc) 173 mcg/dL 185 - 515 mcg/dL January 18, 2025 UIBC/TIBC 137 mcg/dL 155 - 355 mcg/dL Low January Iron 36 mcg/dL 45 - 160 mcg/dL Low January Retic HGB 30.5 pg 25.4 - 31.8 pg - January 25, 2025 Hemoglobin x 3 30.3 % 42.0 - 54.0 % Low January 25, 2025 HGB 10.1 g/dL 14.0 - 18.0 g/dL Low January 122024 Metabolic/Renal Result Type Result Value Relevant Referen ce Range Interpretation Date Creatinine, Serum 5.76 mg/dL 0.60 - 1.30 mg/dL High November 18, 2024 BUN/Creat Ratio 9.5 10.0 - 20.0 Low November 18, 2024 BUN, Post 14 mg/dL 6 - 19 mg/dL - November 18 Sodium 136 mEq/L 136 - 145 mEq/L - November 18, 2024 Potassium 5.3 mEq/L 3.5 - 5.1 mEq/L High November 18, 2024 Chloride 98 mEq/L 96 - 108 mEq/L - November 18 Bicarbonate 24 mEq/L 22 - 29 mEq/L - November 18 BUN 55 mg/dL 6 - 19 mg/dL High November 18 URR, Calc 75 % 65 - 80 % - November 18, 2024 BUN 61 mg/dL 6 - 19 mg/dL High December 21 BUN/Creat Ratio 9.6 10.0 - 20.0 Low December 21, 2024 Creatinine, Serum 6.35 mg/dL 0.60 - 1.30 mg/dL High December 21, 2024 Sodium 136 mEq/L 136 - 145 mEq/L - December 21, 2024 Chloride 99 mEq/L 96 - 108 mEq/L - December 21 025 Potassium 5.2 mEq/L 3.5 - 5.1 mEq/L High December 21, 2024 Bicarbonate 22 mEq/L 22 - 29 mEq/L - December 21 025 BUN, Post 14 mg/dL 6 - 19 mg/dL - December 21 URR, Calc 77 % 65 - 80 % - December 21, 2024 URR, Calc 79 % 65 - 80 % - January 18 BUN, Post 10 mg/dL 6 - 19 mg/dL - January 18 Sodium 134 mEq/L 136 - 145 mEq/L Low January BUN 48 mg/dL 6 - 19 mg/dL High January 18 Creatinine, Serum 6.10 mg/dL 0.60 - 1.30 mg/dL High January 18, 2025 Potassium 4.7 mEq/L 3.5 - 5.1 mEq/L - January BUN/Creat Ratio 7.9 10.0 - 20.0 Low January Bicarbonate 25 mEq/L 22 - 29 mEq/L - January 18, 2025 Chloride 95 mEq/L 96 - 108 mEq/L Low January 18, 2025 HD Adequacy Result Type Result Value Relevant Referen ce Range Interpretation Date Krt/V 0.00 No Reference Ran ge Provided - August 17, 2024 Krt/V 0.00 No Reference Ran ge Provided - September 14, 2024 Krt/V 0.00 No Reference Ran ge Provided - October 19, 2024 spKt/V ([place]augirdas II) 1.57 No Reference Range Provided - November 18, 2024 eKt/V ([place]) 1.32 No Reference Range Provided - November 18, 2024 wstdKt/V, residual 0.0 No Reference Range Provided - December 21, 2024 spKt/V (Daugirdas II) 1.66 No Reference Range Provided - December 21, 2024 eKt/V ([place]) 1.39 No Reference Range Provided - December 21, 2024 wstdKt/V 2.5 No Reference Ran ge Provided - December 21, 2024 Krt/V 0.00 No Reference Ran ge Provided - December 21, 2024 spKt/V Gotch 1.66 No Reference Ran ge Provided - December 21, 2024 wstdKt/V without residual 2.5 No Reference Range Provided - December 21, 2024 wstdKt/V without residual 2.6 No Reference Range Provided - January 18, 2025 wstdKt/V 2.6 No Reference Ran ge Provided - January 18, 2025 eKt/V ([place]) 1.52 No Reference Range Provided - January 18, 2025 spKt/V Gotch 1.81 No Reference Ran ge Provided - January 18, 2025 wstdKt/V, residual 0.0 No Reference Range Provided - January 18, 2025 spKt/V ([place]augirdas II) 1.81 No Reference Range Provided - January 18, 2025 Krt/V 0.00 No Reference Ran ge Provided - January 18, 2025 Bone/Mineral Result Type Result Value Relevant Referen ce Range Interpretation Date Magnesium 2.0 mg/dL 1.6 - 2.6 mg/dL - February 17, 2024 Magnesium 1.9 mg/dL 1.6 - 2.6 mg/dL - May 18, 2024 Vitamin D 25 Hydroxy 77.9 ng/mL 30.0 - 100.0 ng/mL - August 17, 2024 PTH-Intact, Plasma 117 pg/mL 16 - 80 pg/mL High Aug Magnesium 2.4 mg/dL 1.6 - 2.6 mg/dL - August 17, 2024 PTH-Intact, Plasma 80 pg/mL 16 - 80 pg/mL - Nov Corrected Ca x P Product 35 0 - 54 - November 18, 2024 Magnesium 2.0 mg/dL 1.6 - 2.6 mg/dL - November 18, 2024 Phosphorus 3.7 mg/dL 2.6 - 4.5 mg/dL - November 18, 2024 Ca x P Product 33 0 - 54 - November 18, 025 Alkaline Phosphatase 104 U/L 40 - 129 U/L - 2024 Calcium, Total 9.0 mg/dL 8.4 - 10.2 mg/dL - November 18, 2024 Calcium, Total 8.9 mg/dL 8.4 - 10.2 mg/dL - December 21, 2024 Ca x P Product 47 0 - 54 - December 21, 025 Phosphorus 5.3 mg/dL 2.6 - 4.5 mg/dL High December 21, 2024 Corrected Ca x P Product 48 0 - 54 - December 21, 2024 Corrected Ca x P Product 46 0 - 54 - January 18, 2025 Phosphorus 4.9 mg/dL 2.6 - 4.5 mg/dL High January Calcium, Total 9.0 mg/dL 8.4 - 10.2 mg/dL - 2024 Ca x P Product 44 0 - 54 - January 18, 2025 Liver/Nutrition Result Type Result Value Relevant Reference Range Interpre tation Date Albumin (BCG) 3.5 g/dL 3.5 - 5.2 g/dL - November Globulin (Calc) 3.1 g/dL 2.0 - 4.0 g/dL - November 18, 2024 A/G Ratio 1.1 1.0 - 2.0 - November 18, 2024 Total Protein 6.6 g/dL 6.0 - 8.5 g/dL - November Albumin (BCG) 3.7 g/dL 3.5 - 5.2 g/dL - December Total Protein 6.8 g/dL 6.0 - 8.5 g/dL - December Globulin (Calc) 3.1 g/dL 2.0 - 4.0 g/dL - December 21, 2024 A/G Ratio 1.2 1.0 - 2.0 - December 21, 2024 eNPCR 0.99 No Reference Ran ge Provided - December 21, 2024 eNPCR 0.85 No Reference Ran ge Provided - January 18, 2025 A/G Ratio 1.1 1.0 - 2.0 - January 18 Globulin (Calc) 3.2 g/dL 2.0 - 4.0 g/dL - 2024 Total Protein 6.8 g/dL 6.0 - 8.5 g/dL - January 18, 2025 Albumin (BCG) 3.6 g/dL 3.5 - 5.2 g/dL - January 18, 2025 Immunochemistry Result Type Result Value Relevant Referen ce Range Interpretation Date HCV s/co ratio < 0.02 0.00 - 0.79 - February 17, 2024 Trace Elements Result Type Result Value Relevant Reference Range Interpre tation Date Aluminum < 5 mcg/L 0 - 10 mcg/L - February Aluminum < 5 mcg/L 0 - 10 mcg/L - August 17 Infectious Diseases Result Type Result Value Relevant Referen ce Range Interpretation Date HCV Ab (anti-HCV) Nonreactive No Reference R em[place]a Provided - February 17, 2024 Hep B Surface Ag (HBsAg) Negative No Reference Range Provided - November 21, 2024 Hep B Surface Ab (anti-HBs) 174 mIU/mL No Reference Range Provided - November 23, 2024 DIALYSIS PRESCRIPTION Conventional Hemodialysis Data Element Value Order Date/Time January 13, 2025 Frequency 3X Week Treatment Days TueThuSat Dialyzer 180NRe Optiflux Treatment Time (Total Minutes) 180 min Blood Flow Rate (mL/min) 550 mL/min Dialysate Flow Rate Autoflow 2.0 Estimated Dry Weight 59 kg Dialysate Concentrate 2.0 K, 2.5 Ca, 1.0 Mg, 100 Dextrose (G2251) Sodium (mEq/L) 138 mEq/L Bicarb Machine Setting (mEq/L) 32 mEq/L Dialysis Access Hemodialysis-AV [place] t-Unknown, Left Upper Arm, Brachial Artery to Brachial Vein Access Placed on August 20, 2020 Arterial Needle Size 14g1 Venous Needle Size 14g1 IMMUNIZATIONS Vaccine Date Dose Route Status HEPLISAV-B August 26, 2023 20.0 mcg Intramuscular Complet ed HEPLISAV-B, series 4 of 4 July 16, 2022 20.0 mcg Int ramuscular Completed HEPLISAV-B May 21, 2022 20.0 mcg Intramuscular Comp leted HEPLISAV-B, series 3 of 4 April 23, 2022 0.0 mcg Int ramuscular Completed HEPLISAV-B, series 2 of March 26, 2022 20.0 mcg Intr amuscular Completed TRANSPLANT WAITLIST STATUS No Information on Transplant Waitlist Status ADVANCE DIRECTIVES Directive Description Ordered By Effective Date Resuscitation status Do Not Resuscitate (DNR) Lara Jeffers Jun 19, 2024 DIALYSIS TREATMENTS Conventional Hemodialysis Date Pre-Treatment Vitals Post-Treatment Yaritza ls Duration (hr) BFR (mL/min) Dialysate Dialyzer Dialysis Access Meds Admin Augus t 2024 Weight 60.70 kg Weight 60.00 kg 03:02:00 570 2.0 K, 2.5 Ca, 1.0 Mg, 100 Dextrose (G2251) 180nre Optifl ux Blood Pressure-sitting 122/71 mmHg Blood Pressure-sit ting 127/64 mmHg Blood Pressure-standing 94/46 mmHg Blood Pressure-st anding 122/66 mmHg Heart Rate 75 beats per minute Heart Rate 66 beats per minute Respiratory Rate 18 breaths per minute Respiratory Rate 16 breaths per minute Temperature 97.5 deg. F Temperature 97.4 deg. F January 25, 2025 Weight 61.00 kg Weight 59.80 kg 03:01:00 570 2.0 K, 2.5 Ca, 1.0 Mg, 100 Dextrose (G2251) 180nre Optiflux Hemodialysis-AV Graft-Unknown, Left Upper Arm, Brachial Artery to Brachial Vein Access Placed on August 20, 2020 Clonidine HCl; 0.1mg,Oral Clonidine HCl; 0.1mg,Oral Blood Pressure-sitting 206/82 mmHg Blood Pressure-sit ting 207/89 mmHg Blood Pressure-standing 160/73 mmHg Blood Pressure-st anding 180/74 mmHg Heart Rate 76 beats per minute Heart Rate 71 beats per minute Respiratory Rate 18 breaths per minute Respiratory Rate 18 breaths per minute Temperature 97.6 deg. F Temperature 97.5 deg. F January 27, 2025 Weight 61.30 kg Weight 59.10 kg 03:03:00 550 2.0 K, 2.5 Ca, 1.0 Mg, 100 Dextrose (G2251) 180nre Optiflux Hemodialysis-AV Graft-Unknown, Left Upper Arm, Brachial Artery to Brachial Vein Access Placed on August 20, 2020 - Blood Pressure-sitting 124/60 mmHg Blood Pressure-sit ting 136/64 mmHg Blood Pressure-standing 134/61 mmHg Blood Pressure-st anding 130/59 mmHg Heart Rate 71 beats per minute Heart Rate 74 beats per minute Respiratory Rate 18 breaths per minute Respiratory Rate 18 breaths per minute Temperature 97.5 deg. F Temperature 97.8 deg. F
--- NOTE | 2025-01-30 05:39 | ECG_ITS ---
[facility]: 2025-01[facility]30 Pat Name: Fermin Patel Department: Room: Gender: Male Vice Admiral: : 1940 Requested By: Dc Keller Order Number: [id number] Valera MD: Sean Levine M.D. Measurements Intervals [place] Rate: 80 P: 75 MD: 184 QRS: 65 QRSD: 150 T: 55 QT: 393 QTc: 454 Interpretive Statements SINUS RHYTHM RIGHT BUNDLE BRANCH BLOCK [120+ ms QRS DURATION, UPRIGHT V1, 40+ ms S IN I/aVL/V4/V5/V6] Compared to ECG 01/22/2025 13:17:08 No significant changes Electronically Signed On 02-03-2025 09:14:41 CDT by Sean Levine M.D. [email or web address]
--- NOTE | 2025-01-30 05:42 | XRR_ITS ---
PROCEDURE INFORMATION: Exam: XR Chest Exam date and time: 01/30/2025 6:56 AM Age: 84 years old Clinical indication: Shortness of breath; Additional info: SOB TECHNIQUE: Imaging protocol: Radiologic exam of the chest. Views: 1 view. COMPARISON: CR XR chest 1V portable [id number] 05/19/2024 5:53 PM FINDINGS: Lungs: Pleural and parenchymal fibrosis caps the right apex. Developing moderate bilateral pulmonary infiltrates, left greater than right. Findings are likely due to CHF, superimposed pneumonia not excluded. Pleural spaces: Small bilateral pleural effusions. Heart/Mediastinum: See Vasculature finding. Vasculature: Cardiomegaly and uncoiling of the thoracic aorta. Bones/joints: Unremarkable. XR/XR chest 1V portable [id number] IMPRESSION: CHF with pulmonary edema and effusions. Superimposed pneumonia not excluded.
--- NOTE | 2025-01-30 05:44 | W.ED.SOB ---
Documented by User: Dc Keller MD 01/30/25 06:00 HPI - SOB/Dyspnea General: Chief Complaint: Shortness of Breath/Dyspnea Stated Complaint: SOB Time Seen by Provider: 01/30/25 05:42 History of Present Illness: HPI Narrative: Patient comes in with shortness of breath. States it started last night and is associated with cough that is productive for bloody sputum. Denies fever, or congestion. Denies any history of cancer or previous pulmonary embolism. Does not take any blood thinners. Denies chest pain. Patient has a history of end-stage renal disease and is on dialysis. He is scheduled for dialysis this morning. On physical exam he has systolic murmur murmur, he is hypoxic in the 80s on room air palpable pulses in all 4 extremities, no swelling of either leg. His Wells score for PE is 1 for hemoptysis. Will check labs, including D-dimer, check x-ray chest, and reassess. Differential diagnosis: Acute pneumonia, acute pulmonary embolism, acute ACS Associated symptoms: Reports hemoptysis Related Data Home Medications ?Medication ?Instructions ?Recorded ?Confirmed allopurinol 100 mg tablet 100 mg PO QPM 10/08/20 08/25/24 calcium acetate 667 mg tablet 667 mg PO BID 10/08/20 08/25/24 carvedilol 25 mg tablet 25 mg PO BID 12/03/23 08/25/24 nifedipine 60 mg tablet,extended 120 mg PO QAM 12/03/23 08/25/24 release 24 hr atorvastatin 40 mg tablet 40 mg PO QPM 08/25/24 08/25/24 guaifenesin [Mucinex] PO 01/22/25 01/22/25 trazodone 100 mg tablet 50 mg PO DAILY 01/22/25 01/22/25 Allergies Allergy/AdvReac Type Severity Reaction Status Date / Time No Known Allergies Allergy Verified 08/23/24 13:06 Review of Systems Resp: Reports: dyspnea, productive cough and hemoptysis PFS ED PFSH: Medical History Acute exacerbation of CHF (congestive heart failure) NSTEMI (non-ST elevated myocardial infarction) Pleural effusion Elevated troponin ESRD (end stage renal disease) Hypertension Hyperlipidemia Abnormal stress test COVID-19 Chronic gout Vitamin D deficiency Vitamin B12 deficiency (dietary) anemia History of TIA (transient ischemic attack) Surgical History S/P hemodialysis catheter insertion History of left knee surgery History of right knee surgery Family History Denies family history of Anesthesia complication Bleeding disorder Social History Smoking and tobacco/nicotine status: former use of tobacco/nicotine Alcohol intake: never Substance/Drug Use: never Physical Exam Const: COMMON NORMALS: no acute distress, patient oriented x3 and alert HENMT: COMMON NORMALS: normocephalic and atraumatic HEAD & SCALP: normocephalic and atraumatic Neck/C-Spine: COMMON NORMALS: full ROM and supple Resp: COMMON NORMALS: normal respiratory effort, No retractions and No use of accessory muscles Cardio: COMMON NORMALS: regular rate and regular rhythm RATE: regular rate RHYTHM: regular rhythm Extremity: COMMON NORMALS: normal to inspection and full ROM Neuro: COMMON NORMALS: patient oriented x3 SENSORIUM/ORIENTATION: Yes alert Psych: COMMON NORMALS: mental status grossly normal and cooperative Course Vital Signs: Vital signs: Vital Signs Temperature 99.2 F 01/30/25 05:33 Pulse Rate 73 01/30/25 06:45 Respiratory Rate 20 H 01/30/25 06:45 Blood Pressure 197/75 01/30/25 06:45 Pulse Oximetry 95 01/30/25 06:45 Oxygen Delivery Me thod Nasal Cannula 01/30/25 06:45 Oxygen Flow Rate 2 01/30/25 06:45 MDM - SOB/Dyspnea Medical Decision Making And concern for sepsis. The patient is SIRS positive. He is hypoxic, and has an elevated white blood cell count of 21.48. Will check blood cultures, start broad-spectrum antibiotics, continue IV fluids, and reassess. On reassessment we are awaiting test results. Will sign out to the oncoming physician. Lab Data 01/30/25 05:45 01/30/25 05:45 Labs/Radiology: Radiology Impressions Chest X-Ray 01/30/25 05:42 IMPRESSION: CHF with pulmonary edema and effusions. Superimposed pneumonia not excluded. Laboratory Results WBC 21.48 10^3/uL (3.29-11.43) H 01/30/25 05:45 RBC 3.39 10^6/uL (3.85-5.65) L 01/30/25 05:45 Hgb 10.00 g/dL (11.27-16.99) L 01/30/25 05:45 Hct 32.4 % (37-53) L 01/30/25 05:45 MCV 95.6 fl (82-101) 01/30/25 05:45 MCH 29.5 pg (27-33) 01/30/25 05:45 MCHC 30.9 g/dL (30-55) 01/30/25 05:45 RDW 16.1 % (12.1-15.1) H 01/30/25 05:45 Plt Count 242 10^3/cmm (157-399) 01/30/25 05:45 MPV 10.3 fL (7.4-10.4) 01/30/25 05:45 Neut % (Auto) 86.7 % 01/30/25 05:45 Lymph % (Auto) 4.8 % 01/30/25 05:45 Bland % (Auto) 7.6 % 01/30/25 05:45 Eos % (Auto) 0.2 % 01/30/25 05:45 Baso % (Auto) 0.2 % 01/30/25 05:45 Neut # (Auto) 18.62 10^3/uL (1.8-7.7) H 01/30/25 05:45 Lymph # (Auto) 1.0 10^3/uL (0.8-4.8) 01/30/25 05:45 Bland # (Auto) 1.6 10^3/uL (0.2-0.9) H 01/30/25 05:45 Eos # (Auto) 0.0 10^3/uL (0.0-0.8) 01/30/25 05:45 Baso # (Auto) 0.0 10^3/uL (0.0-0.1) 01/30/25 05:45 Nucleated RBC % (auto) 0 % 01/30/25 05:45 Nucleated RBCs # 0.0 /100WBC 01/30/25 05:45 D-Dimer 7.17 ug/mLFEU (0-0.59) H 01/30/25 05:45 Sodium 135 mmol/L (136-145) L 01/30/25 05:45 Potassium 5.1 mmol/L (3.5-5.1) 01/30/25 05:45 Chloride 96 mmol/L (98-107) L 01/30/25 05:45 Carbon Dioxide 23 mmol/L (22-29) 01/30/25 05:45 Anion Gap 21.1 (5-19) H 01/30/25 05:45 BUN 47 mg/dL (8-23) H 01/30/25 05:45 Creatinine 7.1 mg/dL (0.7-1.2) H* 01/30/25 05:45 GFR Calculation Not Reportable 01/30/25 05:45 Glucose 93 mg/dL (65-115) 01/30/25 05:45 Calculated Osmolality 292 mOsm/kg (285-295) 01/30/25 05:45 Lactic Acid 1.0 mmol/L (0.5-2.2) 01/30/25 05:45 Calcium 8.9 mg/dL (8.5-10.5) 01/30/25 05:45 Total Bilirubin 0.3 mg/dL (0.15-1.2) 01/30/25 05:45 AST 18 U/L (0-40) 01/30/25 05:45 ALT 9 U/L (0-41) 01/30/25 05:45 Alkaline Phosphatase 114 U/L (40-130) 01/30/25 05:45 Troponin T Baseline 181 ng/L (0-15) H* 01/30/25 05:45 Troponin T 120 Minute 137.4 ng/L (0-15) H 01/30/25 07:35 Delta Troponin T -43.6 ABS# (0-10) L 01/30/25 07:35 NT-Pro-B Natriuret Pep > 10690 pg/mL (0-450) H 01/30/25 05:45 Total Protein 6.7 g/dL (6.6-8.7) 01/30/25 05:45 Albumin 3.9 g/dL (3.5-5.2) 01/30/25 05:45 Globulin 2.8 g/dL (1.3-4.6) 01/30/25 05:45 Influenza A (PCR) Negative (Negative) 01/30/25 06:01 Influenza Type B (PCR) Negative (Negative) 01/30/25 06:01 RSV (PCR) Negative (Negative) 01/30/25 06:01 SARS-CoV-2 (PCR) Negative (Negative) 01/30/25 06:01 Discharge Plan Discharge Patient Disposition: Admitted As Inpatient Clinical Impression: Community acquired pneumonia, Congestive heart failure, ESRD (end stage renal disease), Elevated troponin Condition: Stable Sign Out Sign Out Data: Patient Sign Out occurred on 01/30/25 at 06:15. Patient's care was discussed, and care was transferred from Dc Keller MD to Landen Pino DO. Coding Level of Care Code ED Dumper Bulk System for Chg Fwd Documented by User: Landen Pino DO 01/30/25 08:16 HPI - SOB/Dyspnea General: Chief Complaint: Shortness of Breath/Dyspnea Stated Complaint: SOB Time Seen by Provider: 01/30/25 05:42 Related Data Home Medications ?Medication ?Instructions ?Recorded ?Confirmed allopurinol 100 mg tablet 100 mg PO QPM 10/08/20 08/25/24 calcium acetate 667 mg tablet 667 mg PO BID 10/08/20 08/25/24 carvedilol 25 mg tablet 25 mg PO BID 12/03/23 08/25/24 nifedipine 60 mg tablet,extended 120 mg PO QAM 12/03/23 08/25/24 release 24 hr atorvastatin 40 mg tablet 40 mg PO QPM 08/25/24 08/25/24 guaifenesin [Mucinex] PO 01/22/25 01/22/25 trazodone 100 mg tablet 50 mg PO DAILY 01/22/25 01/22/25 Allergies Allergy/AdvReac Type Severity Reaction Status Date / Time No Known Allergies Allergy Verified 08/23/24 13:06 PFS ED PFSH: Medical History Acute exacerbation of CHF (congestive heart failure) NSTEMI (non-ST elevated myocardial infarction) Pleural effusion Elevated troponin ESRD (end stage renal disease) Hypertension Hyperlipidemia Abnormal stress test COVID-19 Chronic gout Vitamin D deficiency Vitamin B12 deficiency (dietary) anemia History of TIA (transient ischemic attack) Surgical History S/P hemodialysis catheter insertion History of left knee surgery History of right knee surgery Family History Denies family history of Anesthesia complication Bleeding disorder Social History Smoking and tobacco/nicotine status: former use of tobacco/nicotine Alcohol intake: never Substance/Drug Use: never Course Vital Signs: Vital signs: Vital Signs Temperature 99.2 F 01/30/25 05:33 Pulse Rate 73 01/30/25 06:45 Respiratory Rate 20 H 01/30/25 06:45 Blood Pressure 197/75 01/30/25 06:45 Pulse Oximetry 95 01/30/25 06:45 Oxygen Delivery Me thod Nasal Cannula 01/30/25 06:45 Oxygen Flow Rate 2 01/30/25 06:45 MDM - SOB/Dyspnea Medical Decision Making And concern for sepsis. The patient is SIRS positive. He is hypoxic, and has an elevated white blood cell count of 21.48. Will check blood cultures, start broad-spectrum antibiotics, continue IV fluids, and reassess. On reassessment we are awaiting test results. Will sign out to the oncoming physician. Care assumed at change of shift from Dr. Keller. D-dimer significantly elevated will get CTA of the chest. Troponin elevated above patient's post baseline. This could be due to coronary ischemia CHF pneumonia and is end-stage renal disease. His potassium is not significantly elevated his white count is elevated as what been he has been started on IV antibiotics discussed with hospitalist. CTA chest pending he will follow-up on that we will wait for second troponin to decide whether or not to anticoagulate. Continue antibiotics and have consulted nephrology for his dialysis today Medical Records I reviewed the patient's medical records. Lab Data I reviewed the patient's lab results. 01/30/25 05:45 01/30/25 05:45 Labs/Radiology: Radiology Impressions Chest X-Ray 01/30/25 05:42 IMPRESSION: CHF with pulmonary edema and effusions. Superimposed pneumonia not excluded. Laboratory Results WBC 21.48 10^3/uL (3.29-11.43) H 01/30/25 05:45 RBC 3.39 10^6/uL (3.85-5.65) L 01/30/25 05:45 Hgb 10.00 g/dL (11.27-16.99) L 01/30/25 05:45 Hct 32.4 % (37-53) L 01/30/25 05:45 MCV 95.6 fl (82-101) 01/30/25 05:45 MCH 29.5 pg (27-33) 01/30/25 05:45 MCHC 30.9 g/dL (30-55) 01/30/25 05:45 RDW 16.1 % (12.1-15.1) H 01/30/25 05:45 Plt Count 242 10^3/cmm (157-399) 01/30/25 05:45 MPV 10.3 fL (7.4-10.4) 01/30/25 05:45 Neut % (Auto) 86.7 % 01/30/25 05:45 Lymph % (Auto) 4.8 % 01/30/25 05:45 Bland % (Auto) 7.6 % 01/30/25 05:45 Eos % (Auto) 0.2 % 01/30/25 05:45 Baso % (Auto) 0.2 % 01/30/25 05:45 Neut # (Auto) 18.62 10^3/uL (1.8-7.7) H 01/30/25 05:45 Lymph # (Auto) 1.0 10^3/uL (0.8-4.8) 01/30/25 05:45 Bland # (Auto) 1.6 10^3/uL (0.2-0.9) H 01/30/25 05:45 Eos # (Auto) 0.0 10^3/uL (0.0-0.8) 01/30/25 05:45 Baso # (Auto) 0.0 10^3/uL (0.0-0.1) 01/30/25 05:45 Nucleated RBC % (auto) 0 % 01/30/25 05:45 Nucleated RBCs # 0.0 /100WBC 01/30/25 05:45 D-Dimer 7.17 ug/mLFEU (0-0.59) H 01/30/25 05:45 Sodium 135 mmol/L (136-145) L 01/30/25 05:45 Potassium 5.1 mmol/L (3.5-5.1) 01/30/25 05:45 Chloride 96 mmol/L (98-107) L 01/30/25 05:45 Carbon Dioxide 23 mmol/L (22-29) 01/30/25 05:45 Anion Gap 21.1 (5-19) H 01/30/25 05:45 BUN 47 mg/dL (8-23) H 01/30/25 05:45 Creatinine 7.1 mg/dL (0.7-1.2) H* 01/30/25 05:45 GFR Calculation Not Reportable 01/30/25 05:45 Glucose 93 mg/dL (65-115) 01/30/25 05:45 Calculated Osmolality 292 mOsm/kg (285-295) 01/30/25 05:45 Lactic Acid 1.0 mmol/L (0.5-2.2) 01/30/25 05:45 Calcium 8.9 mg/dL (8.5-10.5) 01/30/25 05:45 Total Bilirubin 0.3 mg/dL (0.15-1.2) 01/30/25 05:45 AST 18 U/L (0-40) 01/30/25 05:45 ALT 9 U/L (0-41) 01/30/25 05:45 Alkaline Phosphatase 114 U/L (40-130) 01/30/25 05:45 Troponin T Baseline 181 ng/L (0-15) H* 01/30/25 05:45 Troponin T 120 Minute 137.4 ng/L (0-15) H 01/30/25 07:35 Delta Troponin T -43.6 ABS# (0-10) L 01/30/25 07:35 NT-Pro-B Natriuret Pep > 35485 pg/mL (0-450) H 01/30/25 05:45 Total Protein 6.7 g/dL (6.6-8.7) 01/30/25 05:45 Albumin 3.9 g/dL (3.5-5.2) 01/30/25 05:45 Globulin 2.8 g/dL (1.3-4.6) 01/30/25 05:45 Influenza A (PCR) Negative (Negative) 01/30/25 06:01 Influenza Type B (PCR) Negative (Negative) 01/30/25 06:01 RSV (PCR) Negative (Negative) 01/30/25 06:01 SARS-CoV-2 (PCR) Negative (Negative) 01/30/25 06:01 All radiology interpretation(s) finalized by discharge Discharge Plan Discharge Patient Disposition: Admitted As Inpatient Clinical Impression: Community acquired pneumonia, Congestive heart failure, ESRD (end stage renal disease), Elevated troponin Condition: Stable Sign Out Sign Out Data: Patient Sign Out occurred on 01/30/25 at 06:15. Patient's care was discussed, and care was transferred from Dc Keller MD to Landen Pino DO. Coding Level of Care Code ED Dumper Bulk System for Eloy Pike
[2025-01-30 05:52] LABS: Hematocrit 32.4 % (37-53); Hemoglobin 10.00 g/dL (11.27-16.99); Mean Corpuscular HGB Conc 30.9 g/dL (30-55); Mean Corpuscular Hemoglobin 29.5 pg (27-33); Mean Corpuscular Volume 95.6 fl (82-101); Nucleated Red Blood Cells % 0 %; Platelet Count 242 10^3/cmm (157-399); Red Blood Count 3.39 10^6/uL (3.85-5.65); White Blood Count 21.48 10^3/uL (3.29-11.43)
--- NOTE | 2025-01-30 06:07 | PHA.VACGOAL ---
Vancomycin Goal - Goal Vancomycin Goal:: 15-20 mg/L Vancomycin Indication:: Pneumonia - Therapy Current therapy:: Pip/Tazo Day of therpy:: Day [0]of [?] . Actual body weight (kg): 127 lb 13.89 oz Dosing weight (kg): 58KG - Data Labs: WBC 21.48 10^3/uL (3.29-11.43) H 01/30/25 05:45 RBC 3.39 10^6/uL (3.85-5.65) L 01/30/25 05:45 Hgb 10.00 g/dL (11.27-16.99) L 01/30/25 05:45 Hct 32.4 % (37-53) L 01/30/25 05:45 MCV 95.6 fl (82-101) 01/30/25 05:45 MCH 29.5 pg (27-33) 01/30/25 05:45 MCHC 30.9 g/dL (30-55) 01/30/25 05:45 RDW 16.1 % (12.1-15.1) H 01/30/25 05:45 Pertinent tests:: Placement of dialysis catheter listed in his surgical history. Last dialysis session:: Last session (Unknown) Drug administration history:: Received loading dose of piperacillin/tazobactam 4.5gm this morning in the ER. Treatment plan:: new consult Regimen:: I have ordered a loading dose of vancomycin 25 mg/kg x1 dose this morning. Follow up:: A pharmacist will follow up this afternoon once a more detail H&P and HPI are available along with the planned last and next hemodialysis sessions. Once this information is known, a maintanence regimen of vancomycin will be ordered. Rationale:: No vancomycin serum levels have been ordered at this time.
[2025-01-30 06:17] LABS: Lactic Sepsis W/Reflex 1.0 mmol/L (0.5-2.2)
[2025-01-30 06:24] LABS: Troponin(5th) Baseline 181 ng/L (0-15)
[2025-01-30 06:27] LABS: Alanine Aminotransferase 9 U/L (0-41); Albumin Level 3.9 g/dL (3.5-5.2); Alkaline Phosphatase 114 U/L (40-130); Anion Gap 21.1 (5-19); Aspartate Amino Transferase 18 U/L (0-40); Blood Urea Nitrogen 47 mg/dL (8-23); Calcium 8.9 mg/dL (8.5-10.5); Carbon Dioxide 23 mmol/L (22-29); Chloride 96 mmol/L (98-107); Creatinine Clr Calc Pharmacy 6.2402; Globulin 2.8 g/dL (1.3-4.6); Glucose 93 mg/dL (65-115); Osmolality Calculated 292 mOsm/kg (285-295); Potassium 5.1 mmol/L (3.5-5.1); Sodium 135 mmol/L (136-145); Total Protein 6.7 g/dL (6.6-8.7)
[2025-01-30] MEDS: piperacillin-tazobactam 4.5 GM in sodium chloride 0.9% (plus) 50 ML IV (06:31)
[2025-01-30 06:46] LABS: Respiratory Syncytial Virus Ce NEGATIVE (Negative); SARS-CoV-2 PCR NEGATIVE (Negative)
[2025-01-30 07:42] LABS: NT Pro B Type Natriuretic Pept > 70000 pg/mL (0-450)
--- NOTE | 2025-01-30 07:44 | ECG_ITS ---
[facility] Test Date: 2025-01-30 Pat Name: Fermin Patel Department: Room: Gender: Male [employer] Manager: : 1940 Requested By: Dc Keller Order Number: [id number] Valera MD: Sean Levine M.D. Measurements Intervals [place] Rate: 70 P: 67 CO: 186 QRS: 69 QRSD: 154 T: 47 QT: 440 QTc: 475 Interpretive Statements SINUS RHYTHM RIGHT BUNDLE BRANCH BLOCK [120+ ms QRS DURATION, UPRIGHT V1, 40+ ms S IN I/aVL/V4/V5/V6] Compared to ECG 01/30/2025 05:39:05 No significant changes Electronically Signed On 02-03-2025 09:47:49 CDT by Sean Levine M.D. [email or web address]
[2025-01-30 07:57] LABS: Troponin 5 2HR 137.4 ng/L (0-15); Troponin 5 2HR Delta -43.6 ABS# (0-10)
--- NOTE | 2025-01-30 08:04 | CT_ITS ---
WS: [id number] CTA scan of the chest with IV contrast. Additional two-dimensional coronal and sagittal reconstruction and MIP images was performed. 01/30/2025 Clinical Data: Elevated D-dimer hypoxia Comparison: CT angio chest PE protocol, 04/28/2024 DLP: 209.[address] scans at [facility] use at least one of these dose optimization techniques: automated exposure control; mA and/or kV adjustment per patient size (includes targeted exams where dose is matched to clinical indication); or iterative reconstruction. Findings: The central pulmonary arteries and peripheral pulmonary arteries fill normally with no evidence of intraluminal filling defects. No pulmonary embolic disease is noted. There are bilateral pleural effusions which have diminished compared to the prior study. There is slightly greater effusion on the right than the left. There is bibasilar atelectasis involving both lower lobes, unchanged. There is scarring in the right upper lobe. The heart size is enlarged with no pericardial effusion. The mitral and aortic valves show calcification along with coronary arteries unchanged. The thoracic aorta shows extensive calcification with a atherosclerotic dilatation. The greatest dilatation is in the descending thoracic aorta, 3.6 cm unchanged. The pleural calcifications are noted. There is no axillary or significant mediastinal adenopathy. The thyroid gland shows normal enhancement. The trachea bifurcates into the bronchi. The upper abdomen shows no abnormalities. The visualized liver, spleen, pancreas and superior pole of the left kidney are not remarkable. The bones of the thoracic and upper lumbar spine show degenerative arthritic change CT/CT angio chest PE protcl [id number] Impression: 1. Negative for pulmonary embolic disease. 2. Bilateral pleural effusions, diminished compared to prior exam. 3. Bilateral lower lobe atelectasis unchanged. 4. Cardiomegaly and extensive atherosclerosis of the cardiac valves, coronary a rteries and thoracic aorta.
[2025-01-30] MEDS: iohexol 350 mg/mL 500 mL Btl (per mL) IV (08:38)
--- NOTE | 2025-01-30 10:16 | PM.HP ---
Providers/Chief Complaint Primary Care Provider: Humera Mayen MD Chief Complaint: SOB History of Present Illness Fermin Patel is a 84 year old male man with a history of congestive heart failure, prior non?ST-segment elevation myocardial infarction, end-stage renal disease (ESRD) on thrice-weekly hemodialysis, transient ischemic attack, hyperlipidemia, gout, chronic anemia, and treated tuberculosis who presented to the emergency department (ED) last night with acute shortness of breath and productive cough. Sputum appeared yellow and occasionally red; he is unsure whether the red color was medication-related or true blood. Dyspnea worsened when lying flat, prompting him to sit upright. He describes a sharp, diffuse anterior chest pain prior to arrival that was not clearly exertional and has since resolved. Denies fevers, chills, nausea, vomiting, diarrhea, urinary symptoms, rashes, or leg swelling. Reports unintentional weight loss from 170?175 lb to 135 lb over the past two months. He is a former smoker and drinks beer occasionally but denies illicit drug use. No home oxygen use and no known chronic lung disease. Review of Systems Const: Denies: fever(s), chills, body aches or malaise ENMT: Denies: throat pain Card: Reports: chest pain; Denies: edema, pre-syncope or dyspnea on exertion Resp: Reports: dyspnea, productive cough, change in phlegm color and hemoptysis (Hemoptysis vs coughing up red medicine) GI: Denies: abdominal pain, nausea, vomiting, diarrhea, constipation, hematochezia or melena : Denies: flank pain, difficulty urinating, urinary frequency or hematuria Musc: Denies: back pain, joint swelling or joint redness Skin/Breast: Denies: rash or new lesions Neuro: Denies: headache(s) or confusion Medications/Allergies Home Medications ?Medication ?Instructions ?Recorded ?Confirmed ?Last Taken ?Type allopurinol 100 mg tablet 100 mg PO QPM 10/08/20 01/30/25 01/29/25 History calcium acetate 667 mg tablet 667 mg PO BID 10/08/20 01/30/25 01/29/25 History carvedilol 25 mg tablet 25 mg PO BID 12/03/23 01/30/25 01/29/25 History nifedipine 60 mg tablet,extended 60 mg PO QAM 12/03/23 01/30/2525 History release 24 hr atorvastatin 40 mg tablet 20 mg PO QPM 08/25/24 01/30/25 01/29/25 History trazodone 100 mg tablet 50 mg PO BEDTIME 01/22/25 01/30/25 01/29/25 History guaifenesin 600 mg tablet, 600 mg PO BID PRN Congestion 01/30/25 01/30/25 Unknown History extended release 12 hr (Mucinex) hydralazine 25 mg tablet 25 mg PO BEDTIME 01/30/25 01/30/25 01/29/25 History Allergies Allergy/AdvReac Type Severity Reaction Status Date / Time No Known Allergies Allergy Verified 08/23/24 13:06 PFSH Acute PFSH: Medical History Tuberculosis Acute exacerbation of CHF (congestive heart failure) NSTEMI (non-ST elevated myocardial infarction) Pleural effusion Elevated troponin ESRD (end stage renal disease) Hypertension Hyperlipidemia Abnormal stress test COVID-19 Chronic gout Vitamin D deficiency Vitamin B12 deficiency (dietary) anemia History of TIA (transient ischemic attack) Surgical History S/P hemodialysis catheter insertion History of left knee surgery History of right knee surgery Family History Denies family history of Anesthesia complication Bleeding disorder Social History Smoking and tobacco/nicotine status: former use of tobacco/nicotine Alcohol intake: never Substance/Drug Use: never Vitals/I&O/Wt Last Vital Signs Temp 99.2 F 01/30/25 05:33 Pulse 67 01/30/25 08:30 Resp 20 H 01/30/25 06:45 BP 166/50 01/30/25 08:30 Pulse Ox 98 01/30/25 08:30 O2 Del Method Nasal Cannula 01/30/25 06:45 O2 Flow Rate 2 01/30/25 06:45 Weight last 48 hrs Weight 58 kg Physical Exam Narrative: Accompanied by son Const: COMMON NORMALS: patient oriented x3 and alert GENERAL APPEARANCE: cooperative ORIENTATION/CONSCIOUSNESS: Yes awake HENMT: COMMON NORMALS: oropharynx normal Neck/C-Spine: COMMON NORMALS: no JVD Resp: AUSCULTATION: rhonchi Cardio: COMMON NORMALS: no JVD, regular rhythm, S1 normal heart sound present, S2 normal heart sound present and No murmurs present (Cardio) RHYTHM: regular rhythm HEART SOUNDS: S1 normal heart sound present and S2 normal heart sound present GI: COMMON NORMALS: Normal to inspection, nondistended, normoactive bowel sounds present, Soft to palpation and non-tender PALPATION: Yes Soft to palpation Extremity: COMMON NORMALS: no joint enlargement and no pedal edema Neuro: COMMON NORMALS: patient oriented x3 and moves all extremities SENSORIUM/ORIENTATION: Yes alert Skin: COMMON NORMALS: no rashes or lesions noted GENERAL SKIN EXAM: no rashes or lesions noted Data 01/30/25 05:45 01/30/25 05:45 Micro: Microbiology 01/30/25 06:10 Blood Culture - Preliminary Blood SPECIMEN COLLECTED 01/30/25 05:45 Blood Culture - Preliminary Blood SPECIMEN COLLECTED A&P Assessment and plan 1. Congestive heart failure: Acute congestive heart failure exacerbation : Hypoxia (SpO2 84 % on room air) and bilateral infiltrates/effusions on imaging suggest fluid overload; cardiomegaly present. - Nephrology to perform hemodialysis today to remove excess fluid - He does still produce urine will give Lasix 60 mg IV push every 12 hours, monitor intake and output, electrolytes with risk of abnormality - Obtain transthoracic echocardiogram to assess cardiac function, complete troponin EKG series to assess for ischemic heart disease. 2. Community acquired pneumonia: Possible community-acquired pneumonia : Productive cough with yellow sputum, leukocytosis 21 ? 10^3/?L, bilateral infiltrates on chest X-ray; differential includes pneumonia versus pulmonary edema. Reviewed vitals, CBC, D-dimer, CMP, chest x-ray, influenza, COVID, RSV nasal swab, troponin, lactic acid, chest CTA, ED provider note, discussed with ED provider, discussed with RT. - Administered piperacillin-tazobactam and vancomycin in the ED - Continue with Zosyn with possible aspiration pneumonia given he has been coughing up red-colored phlegm which may have been due to red medication which she had taken with possible aspiration. Continue vancomycin empirically for now. Monitor for risk of worsening renal dysfunction, cytopenia, C. difficile. Obtain MRSA PCR. - Collect sputum culture for bacterial identification - Collect acid-fast bacilli samples given remote tuberculosis history - Monitor white blood cell count for trend 3. Elevated troponin: Elevated troponin / rule out [id number] elevation myocardial infarction (NSTEMI) : Baseline troponin 181 ng/L with second value 137.4 ng/L; patient reports intermittent chest pain; right bundle-branch block on ECG. No active chest pain. Reviewed prior echocardiogram and stress test from 2023. Discussed with him and his son. - Complete serial troponin set of three to assess trend - Monitor telemetry for arrhythmias - Obtain echocardiogram (TTE) for wall-motion assessment - Initiate low-dose aspirin if hemoptysis resolves or is minimal - Plan repeat stress test after acute issues 4. ESRD (end stage renal disease): [place]-standing ESRD receiving dialysis three times weekly TTS. - Continue thrice-weekly hemodialysis schedule; session planned today - Nephrology consult for fluid and electrolyte management 5. Hemoptysis: Reports coughing up red sputum repeatedly at home over the last day or so. Denies chronic emesis. May be related to pneumonia or maybe aspiration of red liquid medication that he had taken. Aspiration precautions. Asked him to collect sputum so we can see how much he is producing intermittent hemoptysis. Assess for possible PE, CT reviewed, no PE. He reports history of being diagnosed with tuberculosis many years ago for which he had received treatment he does report some weight loss from 175->130 pounds, denies persistent cough, hemoptysis, night sweats. Without obvious imaging signs of tuberculosis. Less likely to be closely but will collect AFB sputum samples every 8 hours x 3. Plan: Anemia : Hemoglobin 10 g/dL; chronic anemia of unclear etiology. - Order complete blood count to reassess hemoglobin and trends Gout : Chronic gout managed with allopurinol. - Continue allopurinol 100 mg daily Hospitalization bundle : Inpatient measures and preferences during current admission. - Apply mechanical venous thromboembolism prophylaxis (compression devices) - Maintain code status as previously documented (patient declines resuscitative efforts) - End-stage renal disease on hemodialysis - HTN - Hyperlipidemia - Transient ischemic attack - Vitamin deficiencies (history) - Chronic anemia - Neuropathy - Treated tuberculosis (remote) - Coronary artery disease (abnormal stress test previously) PDMP PDMP Reviewed: Not Reviewed Attestations Medical Necessity Statement*: Admission over 2 midnights anticipated for assessment management of acute diastolic congestive heart failure pneumonia community-acquired pneumonia possible aspiration pneumonia, with new hypoxia and oxygen requirement, and gentleman with troponin elevation with possible underlying CAD with underlying ESRD on dialysis, hemoptysis, additional comorbidities as above. and High MDM includes amount and/or complexity of data reviewed/ordered [ previous or external records, resulted lab(s)/test(s), ordered lab(s)/test(s) and other healthcare professional discussion] and described risk of complication, morbidity or mortality of management as documented Diagnoses Congestive heart failure I50.9 Community acquired pneumonia J18.9 Elevated troponin R79.89 ESRD (end stage renal disease) N18.6 Hemoptysis R04.2
--- NOTE | 2025-01-30 10:28 | USCV_ITS ---
Fermin Patel Age: 84 Gender: M : 1940 Exam Date: 01/30/2025 16:21 Ordering Phys: Dewey Vergara MD Technologist: WENDY Exam Location: [facility] [place] Indication: CHF, Elevated Trop BP: 181 / 73 HR: 72 Rhythm: Sinus Technical Quality: Adequate MEASUREMENTS (Male / Female) Normal Values 2D ECHO LV Diastolic Diameter PLAX 4.8 cm 4.2 - 5.9 / 3.9 - 5.3 cm IVS Diastolic Thickness 1.4 cm 0.6 - 1.0 / 0.6 - 0.9 cm IVS Systolic Thickness 1.9 cm LVPW Diastolic Thickness 1.3 cm 0.6 - 1.0 / 0.6 - 0.9 cm LVPW Systolic Thickness 1.5 cm LVOT Diameter 2.1 cm LV Ejection Fraction 2D Teich 51.2 % LV Ejection Fraction MOD 4C 61.4 % LV Ejection Fraction MOD 2C 44.1 % LV Ejection Fraction 2C AL 46.9 % LA Diameter 3.5 cm RA Systolic Volume 4C AL 46.0 ml RA Systolic Volume 4C MOD 43.1 ml LA Sys Volume AL 65.6 cm cubed LA Sys Volume Index AL 38.8 cm cubed/m squared Aorta at Sinotubular Diameter 2.7 cm IVC Diameter 1.2 cm M-MODE LA Ao Ratio MM 0.9 AV Cusp Separation MM 1.4 cm DOPPLER AV Peak Velocity 225.7 cm/s AV Area Cont Eq vti 1.3 cm squared AV Area Cont Eq pk 1.4 cm squared MV Peak Velocity 99.0 cm/s MV Area PHT 4.7 cm squared Mitral E to A Ratio 0.8 TR Peak Velocity 101.0 cm/s TR Peak Gradient 4.1 mmHg TV Peak E Velocity 69.0 cm/s PV Peak Velocity 107.0 cm/s FINDINGS Left Ventricle Normal left ventricular size, systolic function and wall thickness, with no regional wall motion abnormalities. Moderately increased left ventricular cavity size. Left ventricular ejection fraction is estimated at 45 %. Global left ventricular hypokinesis. Grade I/IV diastolic dysfunction (abnormal relaxation filling pattern), normal to mildly elevated filling pressures. Right Ventricle The right ventricle is normal in size and function. Right Atrium The right atrium is normal in size. Left Atrium The left atrium is normal in size. Mitral Valve Moderately thickened mitral valve. No mitral valve stenosis. Moderate mitral annular calcification. Trace mitral valve regurgitation. Aortic Valve Moderate aortic valve calcification. Moderate aortic valve stenosis, mean gradient 10.8 mmHg, HEATHER 1.3 cm squared. Mild aortic valve regurgitation. Tricuspid Valve Structurally normal tricuspid valve without significant stenosis or regurgitation. Pulmonary artery systolic pressure is normal. Pulmonic Valve Structurally normal pulmonic valve without significant stenosis. There is no pulmonic regurgitation. Pericardium Normal pericardium without effusion. Aorta Normal ascending aorta dimension. IVC The inferior vena cava appears normal. CONCLUSIONS Normal left ventricular size, systolic function and wall thickness, with no regional wall motion abnormalities. Moderately increased left ventricular cavity size. Left ventricular ejection fraction is estimated at 45 %. Global left ventricular hypokinesis. Grade I/IV diastolic dysfunction (abnormal relaxation filling pattern), normal to mildly elevated filling pressures. Moderate aortic valve calcification. Moderate aortic valve stenosis, mean gradient 10.8 mmHg, HEATHER 1.3 cm squared. Mild aortic valve regurgitation. Moderately thickened mitral valve. No mitral valve stenosis. Moderate mitral annular calcification. Trace mitral valve regurgitation. There is no pericardial effusion. Right atrial pressure is around 5 mm of mercury. Jarret Bang MD (Electronically Signed) Final Date: 30 January 2025 20:36 S
--- NOTE | 2025-01-30 10:52 | PC.NURSE ---
PT TO DIALYSIS AT 0935.
[2025-01-30 13:05] LABS: Troponin 5 6HR 197.4 ng/L (0-15); Troponin 5 6HR Delta 16.4 ng/L (0-12)
--- NOTE | 2025-01-30 18:00 | PM.CONSULT ---
Providers/Reason For Consult Consulting Physician/Specialty*: [facility]/Nephrology Reason for Consult*: ESRD Attending Physician: Dewey Vergara Primary Care Provider: Humera Mayen MD History of Present Illness History of Present Illness Fermin Patel is a 84 year old male patient is a 84-year-old male with past medical history of congestive cardiac failure, prior NSTEMI, end-stage renal disease on dialysis, dyslipidemia, chronic anemia, presented to the emergency department due to shortness of breath. Lab data significant for elevated white count of 21,000, hemoglobin of 10, sodium of 135, creatinine of 7.1. She was noted to be hypoxic and was thought to be combination of community-acquired pneumonia and possible CHF exacerbation. Patient is currently receiving dialysis. Patient evaluated using audiovisual cart. Time spent 40 minutes. Review of Systems Narrative: negative Medications/Allergies Home Medications ?Medication ?Instructions ?Recorded ?Confirmed ?Last Taken ?Type allopurinol 100 mg tablet 100 mg PO QPM 10/08/20 01/30/25 01/29/25 History calcium acetate 667 mg tablet 667 mg PO BID 10/08/20 01/30/25 01/29/25 History carvedilol 25 mg tablet 25 mg PO BID 12/03/23 01/30/25 01/29/25 History nifedipine 60 mg tablet,extended 60 mg PO QAM 12/03/23 01/30/25 01/29/25 History release 24 hr atorvastatin 40 mg tablet 20 mg PO QPM 08/25/24 01/30/25 01/29/25 History trazodone 100 mg tablet 50 mg PO BEDTIME 01/22/25 01/30/25 01/29/25 History guaifenesin 600 mg tablet, 600 mg PO BID PRN Congestion 01/30/25 01/30/25 Unknown History extended release 12 hr (Mucinex) hydralazine 25 mg tablet 25 mg PO BEDTIME 01/30/25 01/30/25 01/29/25 History Allergies Allergy/AdvReac Type Severity Reaction Status Date / Time No Known Allergies Allergy Verified 08/23/24 13:06 Current Medications Generic Name Dose Route Start Last Admin Trade Name Freq PRN Reason Stop Dose Admin Carvedilol 25 mg 01/30/25 09:30 01/30/25 14:59 Carvedilol 25 Mg Tablet PO Not Given BID GUMARO Furosemide 60 mg 01/30/25 10:45 01/30/25 14:59 Furosemide 10 Mg/Ml Sdv 10ml IVP Not Given Q12H GUMARO PFSH Acute PFSH: Medical History Tuberculosis Acute exacerbation of CHF (congestive heart failure) NSTEMI (non-ST elevated myocardial infarction) Pleural effusion Elevated troponin ESRD (end stage renal disease) Hypertension Hyperlipidemia Abnormal stress test COVID-19 Chronic gout Vitamin D deficiency Vitamin B12 deficiency (dietary) anemia History of TIA (transient ischemic attack) Surgical History S/P hemodialysis catheter insertion History of left knee surgery History of right knee surgery Family History Denies family history of Anesthesia complication Bleeding disorder Social History Smoking and tobacco/nicotine status: former use of tobacco/nicotine Alcohol intake: never Substance/Drug Use: never Vitals/I&O/Wt Last Vital Signs Temp 97.9 F 01/30/25 13:42 Pulse 72 01/30/25 16:15 Resp 22 H 01/30/25 16:15 BP 185/74 01/30/25 16:15 Pulse Ox 94 01/30/25 16:15 O2 Del Method Nasal Cannula 01/30/25 16:13 O2 Flow Rate 2 01/30/25 06:45 01/30/25 01/30/25 01/30/25 06:59 14:59 22:59 Intake Total 300 / 300 850 / 1150 Output Total 3300 / 3300 Balance -3000 / -3000 850 / -2150 Weight last 48 hrs Weight 58 kg Physical Exam Narrative: Appearing elderly male, in no dextral distress Getting dialysis No JVD S1-S2 regular rate rhythm per report Lungs with decreased breath sounds Soft nontender per report No pedal edema Data 01/30/25 05:45 01/30/25 05:45 Micro: Microbiology 01/30/25 06:10 Blood Culture - Preliminary Blood SPECIMEN COLLECTED 01/30/25 05:45 Blood Culture - Preliminary Blood SPECIMEN COLLECTED A&P Assessment and plan 1. ESRD (end stage renal disease): Plan: 1. End-stage renal disease: On TTS schedule as outpatient, hemodialysis today 2. Acute respiratory failure in the setting of pneumonia and volume overload, ultrafiltration with HD as above 3. CHF exacerbation, UF with HD as above 4. Anemia: Hemoglobin of 10, monitor 5. Community-acquired pneumonia, management per primary team PDMP PDMP Reviewed: Not Reviewed Consult Attestations Medical Necessity Statement: per blair Coding Level of Care Code Acute Code for Chg Fwd Diagnoses ESRD (end stage renal disease) N18.6
[2025-01-30] MEDS: piperacillin-tazobactam 3.375 GM in sodium chloride 0.9% (plus) 50 ML IV (18:12)
[2025-01-30] MEDS: FUROsemide 10 mg/mL SDV 10mL 60 MG IVP (21:11)
--- NOTE | 2025-01-30 22:15 | PC.NURSE ---
Contacted MD about patient refusing scheduled dose of hydralizine and trazodone at bedtime, no new orders at this time
[2025-01-31] VITALS (8 sets, daily range): BP systolic 113–187; BP diastolic 46–67; PULSE 58–65; RESP 18–23; TEMP 36.9–38.4; O2SAT 83–97
--- NOTE | 2025-01-31 00:21 | PC.NURSE ---
contacted about elevated BP of 187/56 after refusing to take hydralizine earlier in the shift, MD ordered 0.1mg of clonidine PO once. order entered
[2025-01-31 04:07] LABS: Hematocrit 31.1 % (37-53); Hemoglobin 9.40 g/dL (11.27-16.99); Mean Corpuscular HGB Conc 30.2 g/dL (30-55); Mean Corpuscular Hemoglobin 29.3 pg (27-33); Mean Corpuscular Volume 96.9 fl (82-101); Nucleated Red Blood Cells % 0 %; Platelet Count 187 10^3/cmm (157-399); Red Blood Count 3.21 10^6/uL (3.85-5.65); White Blood Count 12.66 10^3/uL (3.29-11.43)
[2025-01-31 04:36] LABS: Anion Gap 16.7 (5-19); Blood Urea Nitrogen 29 mg/dL (8-23); Calcium 9.1 mg/dL (8.5-10.5); Carbon Dioxide 27 mmol/L (22-29); Chloride 98 mmol/L (98-107); Creatinine Clr Calc Pharmacy 8.4624; Glucose 90 mg/dL (65-115); Osmolality Calculated 289 mOsm/kg (285-295); Potassium 4.7 mmol/L (3.5-5.1); Sodium 137 mmol/L (136-145)
[2025-01-31] MEDS: piperacillin-tazobactam 3.375 GM in sodium chloride 0.9% (plus) 50 ML IV ×2 (05:09→17:07)
--- NOTE | 2025-01-31 05:56 | PC.NURSE ---
Sheet change patient was found wet right after a urinal usage, this nurse explained that some of the urine most likely spilled out of the urinal, patient did not want that wet sheet changed, this nurse informed the patient that sitting in the wetness can cause sores and we need to get it changed. Sheet was changed, bed is now clean and dry.
[2025-01-31] MEDS: NIFEdipine ER (24 hr) 30 mg Tablet 60 MG PO (09:08)
--- NOTE | 2025-01-31 09:21 | PC.CHAP ---
Pastoral Care Encounter/Spiritual Assessment Type of Contact [] Declined deputy juvenile officer visit [] Patient/Family/Request visit [] Outpatient visit [] Follow-up visit [] Physician referral [] Code/Alert [] Routine visit [] Staff referral [] Actively dying [] Patient sleeping [] Family support [] [] Out of room [] Palliative care [] [] Receiving care in room [] Pre-surgical visit [] Trauma [] Long length of stay [] ICU visit [x] Other:Contact precautions. No visit. Relational/Emotional Strength [] Patient feels connected with others/family/visitors/staff [] Distress [] Loneliness/isolation [] Abandonment Spirituality of Patient [] Person of Divya [] Attends Jew of their Divya [] Believes in Prayer [] Reads Bible or Jewish materials [] There are Spiritual issues to be addressed Food And Nutrition Teacher Interventions [] Prayer [] Active listening [] Non-anxious presence [] Spiritual/emotional support [] Crisis/trauma care [] Spiritual counseling [] Bereavement support [] Provided bereavement packet [] Provided Bible/devotional materials [] Provided toy/stuffed animal, coloring book to patient or family member [] Provided Communion [] Anointing/[place] [] Salvation [] Completed spiritual assessment [] Other: Impact on Illness or Injury [] Angry [] Fearful [] Anxious [] Often cries [] Exhaustion [] Unable to work [] Unable to attend jewish [] Unable to walk/stand [] Unable to read [] Unable to drive [] Unable to eat/drink [] Unable to sleep [] Unable to be with family [] Patient intubated [] Other: Summary Time spent with patient
--- NOTE | 2025-01-31 10:00 | P.PN_ITS ---
Subjective 2 Subjective: no new c/o Medications: Reviewed: Yes Vitals/I&O/Wt Last Vital Signs Temp 99.6 F 01/31/25 08:00 Pulse 65 01/31/25 08:00 Resp 20 H 01/31/25 08:00 BP 187/67 01/31/25 08:00 Pulse Ox 93 01/31/25 08:00 O2 Del Method Nasal Cannula 01/31/25 03:09 O2 Flow Rate 2 01/31/25 03:09 01/30/25 01/31/25 01/31/25 22:59 06:59 14:59 Intake Total 900 / 1200 50 / 50 Balance 900 / -2100 50 / 50 Weight last 48 hrs Weight 57.742 kg Weight 57.606 kg Weight 58 kg Physical Exam 2 Narrative: Appearing elderly male, in no dextral distress Getting dialysis No JVD S1-S2 regular rate rhythm per report Lungs with decreased breath sounds Soft nontender per report No pedal edema Data 01/31/25 03:55 01/31/25 03:55 Micro: Microbiology 01/30/25 10:00 Gram Stain - Final Sputum - Expectorated Sputum Sputum Culture - Preliminary 01/30/25 06:10 Blood Culture - Preliminary Blood NEGATIVE TO DATE 01/30/25 05:45 Blood Culture - Preliminary Blood NEGATIVE TO DATE A&P Assessment and plan 1. ESRD (end stage renal disease): Plan: 1. End-stage renal disease: On TTS schedule 2. Acute respiratory failure in the setting of pneumonia and volume overload, ultrafiltration with HD as above 3. CHF exacerbation, 4. Anemia: Hemoglobin of 9.4 , monitor 5. Community-acquired pneumonia, management per primary team PDMP PDMP Reviewed: Not Reviewed Attestations 2 Medical Necessity Statement*: per medicine Coding Level of Care Code Acute Code for Chg Fwd Diagnoses ESRD (end stage renal disease) N18.6
[2025-01-31] MEDS: FUROsemide 10 mg/mL SDV 10mL 60 MG IVP ×2 (10:33→21:03)
[2025-01-31 12:46] LABS: MRSA PCR OZH (swab) NOT DETECTED (Negative)
--- NOTE | 2025-01-31 14:58 | P.PN_ITS ---
Subjective 2 Subjective: He is feeling little bit better. Phlegm is clearing up. He may have had a little bit of blood in the sputum again, but no massive hemoptysis. Vitals/I&O/Wt Last Vital Signs Temp 100.3 F H 01/31/25 12:00 Pulse 65 01/31/25 12:00 Resp 22 H 01/31/25 12:00 BP 151/46 01/31/25 12:00 Pulse Ox 92 01/31/25 14:53 O2 Del Method Room Air 01/31/25 12:00 O2 Flow Rate 2 01/31/25 14:53 01/30/25 01/31/25 01/31/25 22:59 06:59 14:59 Intake Total 900 / 1200 170 / 170 Output Total 150 / 150 Balance 900 / -2100 Weight last 48 hrs Weight 57.742 kg Weight 57.606 kg Weight 58 kg Physical Exam 2 Const: COMMON NORMALS: patient oriented x3 and alert GENERAL APPEARANCE: c ooperative ORIENTATION/CONSCIOUSNESS: Yes awake HENMT: COMMON NORMALS: oropharynx normal Neck/C-Spine: COMMON NORMALS: no JVD Resp: AUSCULTATION: rhonchi Cardio: COMMON NORMALS: no JVD, regular rhythm, S1 normal heart sound present, S2 normal heart sound present and No murmurs present (Cardio) RHYTHM: regular rhythm HEART SOUNDS: S1 normal heart sound present and S2 normal heart sound present GI: COMMON NORMALS: Normal to inspection, nondistended, normoactive bowel sounds present, Soft to palpation and non-tender PALPATION: Yes Soft to palpation Extremity: COMMON NORMALS: no joint enlargement and no pedal edema Neuro: COMMON NORMALS: patient oriented x3 and moves all extremities S ENSORIUM/ORIENTATION: Yes alert Skin: COMMON NORMALS: no rashes or lesions noted GENERAL SKIN EXAM: no rashes or lesions noted Data 01/31/25 03:55 01/31/25 03:55 Micro: Microbiology 01/30/25 10:00 Gram Stain - Final Sputum - Expectorated Sputum Sputum Culture - Preliminary 01/30/25 06:10 Blood Culture - Preliminary Blood NEGATIVE TO DATE 01/30/25 05:45 Blood Culture - Preliminary Blood NEGATIVE TO DATE A&P Assessment and plan 1. Congestive heart failure: Reviewed vitals, intake and output. Noted and negative balance this morning. Oxygenation improving, still requiring 1-2 L nasal cannula oxygen. Subjectively breathing is improving. Reviewed troponin series, noted moderate elevation with some fluctuation without overall rise although somewhat higher than previous. Acute congestive heart failure exacerbation : Hypoxia (SpO2 84 % on room air) and bilateral infiltrates/effusions on imaging suggest fluid overload; cardiomegaly present. Reviewed echocardiogram with noted decrease in to 45% global left ventricular hypokinesis grade 1 diastolic dysfunction. Noted moderate aortic valve stenosis. - s/p hemodialysis, continue - Lasix 60 mg IV push every 12 hours, monitor intake and output, electrolytes with risk of abnormality Add aspirin 81 mg p.o. monitor for risk of bleeding. - Discussed w cardiology regarding new drop in EF, acute CHF, previous abnormal stress test, troponin elevation. Appreciate consultation. 2. Community acquired pneumonia: So far without severe/massive hemoptysis. Will start aspirin Productive cough with yellow sputum, leukocytosis 21 ? 10^3/?L, bilateral infiltrates on chest X-ray; differential includes pneumonia versus pulmonary edema. Reviewed vitals, CBC, D-dimer, CMP, chest x-ray, influenza, COVID, RSV nasal swab, troponin, lactic acid, chest CTA, ED provider note, discussed with ED provider, discussed with RT. - Administered piperacillin-tazobactam and vancomycin in the ED - Continue with Zosyn with possible aspiration pneumonia given he has been coughing up red-colored phlegm which may have been due to red medication which she had taken with possible aspiration. Continue vancomycin empirically for now. Monitor for risk of worsening renal dysfunction, cytopenia, C. difficile. Obtain MRSA PCR. - Collect sputum culture for bacterial identification - Collect acid-fast bacilli samples given remote tuberculosis history - Monitor white blood cell count for trend 3. Elevated troponin: Add aspirin 81 mg. Monitor for risk of bleeding. Somewhat flat trend of troponin although higher than previous. New decrease in ejection fraction. Grade 1 diastolic dysfunction. Previously abnormal stress test. Appreciate cardiology consultation. Monitor on telemetry with risk of arrhythmia. 4. ESRD (end stage renal disease): Long-standing ESRD receiving dialysis three times weekly TTS. - Continue thrice-weekly hemodialysis schedule; session planned today Reviewed nephrology note. 5. Hemoptysis: Continue to monitor hemoptysis, so far without massive hemoptysis. Continue treatment of pneumonia. Discussed with RT, complete collection of AFB sputum samples. No PE on CTA. He reports history of being diagnosed with tuberculosis many years ago for which he had received treatment he does report some weight loss from 175->130 pounds, denies persistent cough, hemoptysis, night sweats. Without obvious imaging signs of tuberculosis. Less likely to be closely but will collect AFB sputum samples every 8 hours x 3. Plan: Anemia : Hemoglobin 9.4 g/dL; chronic anemia of unclear etiology. - Order complete blood count to reassess hemoglobin and trends Gout : Chronic gout managed with allopurinol. - Continue allopurinol 100 mg daily Hospitalization bundle : Inpatient measures and preferences during current admission. - Apply mechanical venous thromboembolism prophylaxis (compression devices) - Maintain code status as previously documented (patient declines resuscitative efforts) - End-stage renal disease on hemodialysis - HTN - Hyperlipidemia - Transient ischemic attack - Vitamin deficiencies (history) - Chronic anemia - Neuropathy - Treated tuberculosis (remote) - Coronary artery disease (abnormal stress test previously) PDMP PDMP Reviewed: Not Reviewed Attestations 2 Medical Necessity Statement*: Continue for assessment management of acute CHF, community-acquired pneumonia and gentleman with underlying ESRD, further cardiac evaluation with new decrease in ejection fraction, previously abnormal stress test. and High MDM includes amount and/or complexity of data reviewed/ordered [ previous or external records, resulted lab(s)/test(s) and other healthcare professional discussion] and described risk of complication, morbidity or mortality of management as documented Diagnoses Congestive heart failure I50.9 Community acquired pneumonia J18.9 Elevated troponin R79.89 ESRD (end stage renal disease) N18.6 Hemoptysis R04.2
--- NOTE | 2025-01-31 15:44 | P.CONIM_ITS ---
<Statement entered by Sean Levine M.D - 02/01/25 10:37> Patient was cared for in conjunction with an advanced practice practitioner.? I reviewed the chart and all pertinent data including imaging, telemetry, and laboratory results.? I discussed the patient in detail with the advanced practice practitioner.? Please see?their note for consult note, testing results and agreed upon plan of care for the patient. Patient has troponin elevation and LV dysfunction compared to before. Has respecters for CAD. Will proceed with coronary angiogram once stable from pneumonia standpoint. Providers/Reason For Consult 2 Consulting Physician/Specialty*: Dr. Levine, interventional cardiology Reason for Consult*: Abnormal stress test, elevated troponin Requesting Physician: Dewey Vergara Attending Physician: Dewey Vergara Primary Care Provider: Humera Mayen MD History of Present Illness History of Present Illness Fermin Patel is a 84 year old male with past medical history of CHF, ESRD on HD (Wednesday), TIA, hyperlipidemia, chronic anemia, treated tuberculosis presented to the emergency department yesterday due to shortness of breath and productive cough, possible blood-tinged sputum. He reported sharp chest pain initially, nonexertional and has resolved. Recent history significant for unintentional 40 pound weight loss over 2 months. Former smoker. Echocardiogram obtained 01/30/2025: LVEF 45%, global LV hypokinesis, grade 1 diastolic dysfunction moderate aortic stenosis (mean gradient 10.8 mmHg, HEATHER 1.3 cm?), mild aortic regurgitation, normal inferior vena cava. Previous echocardiogram in 2023 showed LVEF 60% with some stenosis noted, poor quality study. CTA obtained 01/30/2025 negative for PE, bilateral pleural effusions smaller than previous exam in April, right greater than left. EKG shows sinus rhythm with right bundle branch block, no ischemic ST or T wave changes. Most recent Lexiscan stress test 12/03/2023: Small to moderate area of moderate to severe persistent decreased tracer uptake involving all the apical segments small area of reversibility in the apical lateral segment suggesting scarring in the distribution of all 3 coronary arteries predominantly distal segments of LAD and circumflex subtle area of jaylan-infarct ischemia. Stress EF 43%. At that time ischemic burden appeared to be less than the previous study in 2021. No further workup was recommended at that time. Hemoglobin 9.4, BUN 29, creatinine 5.2, potassium 4.7. Troponin series: 181-> 137-> 197. BNP greater than 70,000. Viral testing has been negative. He is febrile today at 100.3. Blood pressure was initially very high with systolic over 200, now systolic ranging in the 150/40-50 range. He is on oxygen 2 L nasal cannula, qualified for oxygen today. Last dialysis was yesterday, 3000 mL out. He does make some urine. Shortness of breath is improved from admission, he has not had any chest pain. He cannot recall any previous coronary angiogram. He notes his level of exertion reduced after he had his knees replaced, he used to walk 2 miles a day, seems to be due to pain in the knees after surgery. He is no longer very active at all. Review of Systems 2 Const: Denies: fever(s), chills, change in weight, fatigue or diaphoresis Eyes: Denies: change in vision ENMT: Denies: epistaxis Card: Reports: dyspnea on exertion; Denies: chest pain, palpitations, irregular heart rhythm, edema, syncope, pre- syncope, orthopnea or leg pain with exertion Resp: Reports: dyspnea, productive cough and change in phlegm color (Possible blood-tinged sputum); Denies: wheezing GI: Reports: diarrhea; Denies: nausea, vomiting, hematemesis, hematochezia or melena : Denies: hematuria Musc: Denies: extremity swelling Jose/Lymph: Denies: easy bruising or easy bleeding Medications/Allergies Home Medications ?Medication ?Instructions ?Recorded ?Confirmed ?Last Taken ?Type allopurinol 100 mg tablet 100 mg PO QPM 10/08/2001/3001/29/25 History calcium acetate 667 mg tablet 667 mg PO BID 10/08/20 0 01/30/25 01/29/25 History carvedilol 25 mg tablet 25 mg PO BID 12/03/2301/29/25 History nifedipine 60 mg tablet,extended 60 mg PO QAM 12/03/23 01/30/25 01/29/25 History release 24 hr atorvastatin 40 mg tablet 20 mg PO QPM 08/25/2401/29/25 History trazodone 100 mg tablet 50 mg PO BEDTIME 01/22/2501/29/25 History guaifenesin 600 mg tablet, 600 mg PO BID PRN Congestio n 01/30/25 01/30/25 Unknown History extended release 12 hr (Mucinex) hydralazine 25 mg tablet 25 mg PO BEDTIME 01/30/2501/29/25 History Allergies Allergy/AdvReac Type Severity Reaction Status Date / Time No Known Allergies Allergy Verified 08/23/24 13:06 Current Medications Generic Name Dose Route Start Last Admin Trade Name Sukhjinderq PRN Reason Stop Dose Admin Allopurinol 100 mg 01/30/25 18:00 01/30/25 18:13 Allopurinol 100 Mg Tablet PO 100 mg QPM GUMARO Administration Atorvastatin Calcium 20 mg 01/30/25 18:00 01/30/25 18:13 Atorvastatin 40 Mg Tablet PO 20 mg QPM GUMARO Administration Calcium Acetate 667 mg 01/30/25 18:00 01/31/25 09:08 Calcium Acetate 667 Mg Capsule PO 667 mg BID GUMARO Administration Carvedilol 25 mg 01/30/25 09:30 01/31/25 09:08 Carvedilol 25 Mg Tablet PO 25 mg BID GUMARO Administration Furosemide 60 mg 01/30/25 10:45 01/31/25 10:33 Furosemide 10 Mg/Ml Sdv 10ml IVP 60 mg Q12H GUMARO Administration Hydralazine HCl 25 mg 01/30/25 21:00 01/30/25 21:11 Hydralazine 25 Mg Tablet PO Not Given BEDTIME GUMARO Piperacillin Sod/Tazobactam 50 mls @ 12.5 mls/hr 01/30/25 18:00 01/31/25 09:15 Sod 3.375 gm/ Sodium Chloride IV Infused Q12H GUMARO Infusion Protocol Nifedipine 60 mg 01/31/25 09:00 01/31/25 09:08 Nifedipine Er (24 Hr) 30 Mg Tablet PO 60 mg DAILY GUMARO Administration Trazodone HCl 50 mg 01/30/25 21:00 01/30/25 21:12 Trazodone 100 Mg Tablet PO Not Given BEDTIME GUMARO PFSH Acute 2 PFSH: Medical History Tuberculosis Acute exacerbation of CHF (congestive heart failure) NSTEMI (non-ST elevated myocardial infarction) Pleural effusion Elevated troponin ESRD (end stage renal disease) Hypertension Hyperlipidemia Abnormal stress test COVID-19 Chronic gout Vitamin D deficiency Vitamin B12 deficiency (dietary) anemia History of TIA (transient ischemic attack) Surgical History S/P hemodialysis catheter insertion History of left knee surgery History of right knee surgery Family History Denies family history of Anesthesia complication Bleeding disorder Social History Smoking and tobacco/nicotine status: former use of tobacco/nicotine Alcohol intake: never Substance/Drug Use: never Vitals/I&O/Wt Last Vital Signs Temp 100.3 F H 01/31/25 12:00 Pulse 65 01/31/25 12:00 Resp 22 H 01/31/25 12:00 BP 151/46 01/31/25 12:00 Pulse Ox 92 01/31/25 14:53 O2 Del Method Room Air 01/31/25 12:00 O2 Flow Rate 2 01/31/25 14:53 01/31/25 01/31/25 01/31/25 06:59 14:59 22:59 Intake Total 170 / 170 Output Total 150 / 150 Balance Weight last 48 hrs Weight 127 lb 4.8 oz Weight 127 lb Weight 127 lb 13.89 oz Physical Exam 2 Const: COMMON NORMALS: no acute distress and patient oriented x3 GENERAL APPEARANCE: cooperative and comfortable ORIENTATION/CONSCIOUSNESS: Yes awake, Yes oriented to person, Yes oriented to place and Yes oriented to time Chest: COMMONS NORMALS: normal inspection of the chest and normal palpation of entire chest wall CHEST: Yes Symmetrical chest wall rise Resp: COMMON NORMALS: normal respiratory effort, No retractions and No use of accessory muscles EFFORT & INSPECTION: Yes symmetric chest movement A USCULTATION: crackles Laterality: bilateral and posterior Cardio: COMMON NORMALS: regular rate, regular rhythm, S1 normal heart sound present, S2 normal heart sound present, No gallops present (Cardio), No clicks present (Cardio) and No rub (Cardio) RATE: regular rate RHYTHM: regular rhythm HEART SOUNDS: S1 normal heart sound present, S2 normal heart sound present and Murmur heart sound present systolic Location: left sternal border and right sternal border Intensity: III/ PERIPHERAL PULSES: radial pulses present Extremity: COMMON NORMALS: no pedal edema Neuro: COMMON NORMALS: patient oriented x3 and moves all extremities S ENSORIUM/ORIENTATION: Yes oriented to person, Yes oriented to place and Yes oriented to time Data 01/31/25 03:55 01/31/25 03:55 Micro: Microbiology 01/30/25 10:00 Gram Stain - Final Sputum - Expectorated Sputum Sputum Culture - Preliminary 01/30/25 06:10 Blood Culture - Preliminary Blood NEGATIVE TO DATE 01/30/25 05:45 Blood Culture - Preliminary Blood NEGATIVE TO DATE A&P Assessment and plan 1. ESRD (end stage renal disease): 2. Community acquired pneumonia: 3. Congestive heart failure: 4. Elevated troponin: Plan: He is febrile and has pneumonia. Will wait for recovery from pneumonia, continue diuresis and plan for coronary angiogram to evaluate new onset systolic CHF depending on his clinical progress. Continue carvedilol, aspirin, atorvastatin, diuresis with Lasix. He is getting hydralazine and nifedipine for control blood pressure. PDMP PDMP Reviewed: Not Reviewed Coding Level of Care Code Acute Code for Chg Fwd Diagnoses ESRD (end stage renal disease) N18.6 Community acquired pneumonia J18.9 Congestive heart failure I50.9 Elevated troponin R79.89
[2025-02-01] VITALS (7 sets, daily range): BP systolic 102–140; BP diastolic 40–53; PULSE 56–67; RESP 16–23; TEMP 36.7–37.2; O2SAT 91–98
[2025-02-01 05:45] LABS: Hematocrit 28.1 % (37-53); Hemoglobin 8.80 g/dL (11.27-16.99); Mean Corpuscular HGB Conc 31.3 g/dL (30-55); Mean Corpuscular Hemoglobin 30.1 pg (27-33); Mean Corpuscular Volume 96.2 fl (82-101); Nucleated Red Blood Cells % 0 %; Platelet Count 188 10^3/cmm (157-399); Red Blood Count 2.92 10^6/uL (3.85-5.65); White Blood Count 9.51 10^3/uL (3.29-11.43)
[2025-02-01] MEDS: piperacillin-tazobactam 3.375 GM in sodium chloride 0.9% (plus) 50 ML IV ×2 (06:02→18:04)
[2025-02-01 06:05] LABS: Anion Gap 18.6 (5-19); Blood Urea Nitrogen 49 mg/dL (8-23); Calcium 8.6 mg/dL (8.5-10.5); Carbon Dioxide 25 mmol/L (22-29); Chloride 96 mmol/L (98-107); Creatinine Clr Calc Pharmacy 6.5780; Glucose 90 mg/dL (65-115); Osmolality Calculated 293 mOsm/kg (285-295); Potassium 4.6 mmol/L (3.5-5.1); Sodium 135 mmol/L (136-145)
[2025-02-01] MEDS: NIFEdipine ER (24 hr) 30 mg Tablet 60 MG PO (08:39)
--- NOTE | 2025-02-01 09:30 | P.PN_ITS ---
Subjective 2 Subjective: getting HD Medications: Reviewed: Yes Vitals/I&O/Wt Last Vital Signs Temp 98.1 F 02/01/25 11:17 Pulse 62 02/01/25 11:17 Resp 18 02/01/25 11:17 BP 102/40 02/01/25 11:17 Pulse Ox 94 02/01/25 08:00 O2 Del Method Nasal Cannula 02/01/25 04:00 O2 Flow Rate 2 02/01/25 04:00 02/01/25 02/01/25 02/01/25 06:59 14:59 22:59 Intake Total 240 / 940 460 / 460 240 / 700 Output Total 200 / 350 Balance 40 / 590 460 / 460 240 / 700 Weight last 48 hrs Weight 55.973 kg Weight 57.742 kg Weight 57.606 kg Physical Exam 2 Narrative: elderly male, in no distress Getting dialysis No JVD S1-S2 regular rate rhythm per report Lungs with decreased breath sounds Soft nontender per report No pedal edema Data 02/01/25 05:25 02/01/25 05:25 Micro: Microbiology 01/31/25 05:07 Mycobacterial Smear - Preliminary Sputum - Expectorated Sputum 01/30/25 19:09 Mycobacterial Smear - Preliminary Sputum - Expectorated Sputum A&P Assessment and plan 1. ESRD (end stage renal disease): Plan: 1. End-stage renal disease: On TTS schedule 2. Acute respiratory failure in the setting of pneumonia and volume overload, ultrafiltration with HD as above 3. CHF exacerbation, 4. Anemia: Hemoglobin of 8.8 , monitor 5. Community-acquired pneumonia, management per primary team PDMP PDMP Reviewed: Not Reviewed Attestations 2 Medical Necessity Statement*: PER [facility] Coding Level of Care Code Acute Code for Chg Fwd Diagnoses ESRD (end stage renal disease) N18.6
--- NOTE | 2025-02-01 10:14 | P.PN_ITS ---
Subjective 2 Subjective: He is overall improving. Still bloody streaks in sputum but subsiding and not appearing quite as red as before. No chest pain pressure. Vitals/I&O/Wt Last Vital Signs Temp 98.2 F 02/01/25 08:00 Pulse 57 L 02/01/25 08:00 Resp 19 H 02/01/25 08:00 BP 126/41 02/01/25 08:00 Pulse Ox 94 02/01/25 08:00 O2 Del Method Nasal Cannula 02/01/25 04:00 O2 Flow Rate 2 02/01/25 04:00 01/31/25 02/01/25 02/01/25 22:59 06:59 14:59 Intake Total 530 / 700 240 / 940 Output Total 200 / 350 Balance 530 / 550 40 / 590 Weight last 48 hrs Weight 55.973 kg Weight 57.742 kg Weight 57.606 kg Physical Exam 2 Narrative: Accompanied by son Const: COMMON NORMALS: patient oriented x3 and alert GENERAL APPEARANCE: c ooperative ORIENTATION/CONSCIOUSNESS: Yes awake HENMT: COMMON NORMALS: oropharynx normal Neck/C-Spine: COMMON NORMALS: no JVD Resp: AUSCULTATION: rhonchi Cardio: COMMON NORMALS: no JVD, regular rhythm, S1 normal heart sound present, S2 normal heart sound present and No murmurs present (Cardio) RHYTHM: regular rhythm HEART SOUNDS: S1 normal heart sound present and S2 normal heart sound present GI: COMMON NORMALS: Normal to inspection, nondistended, normoactive bowel sounds present, Soft to palpation and non-tender PALPATION: Yes Soft to palpation Extremity: COMMON NORMALS: no joint enlargement and no pedal edema Neuro: COMMON NORMALS: patient oriented x3 and moves all extremities S ENSORIUM/ORIENTATION: Yes alert Skin: COMMON NORMALS: no rashes or lesions noted GENERAL SKIN EXAM: no rashes or lesions noted Data 02/01/25 05:25 02/01/25 05:25 Micro: Microbiology 01/31/25 05:07 Mycobacterial Smear - Preliminary Sputum - Expectorated Sputum 01/30/25 19:09 Mycobacterial Smear - Preliminary Sputum - Expectorated Sputum 01/30/25 10:00 Gram Stain - Final Sputum - Expectorated Sputum Sputum Culture - Preliminary 01/30/25 06:10 Blood Culture - Preliminary Blood NEGATIVE TO DATE 01/30/25 05:45 Blood Culture - Preliminary Blood NEGATIVE TO DATE A&P Assessment and plan 1. Congestive heart failure: Reviewed vitals, intake and output. Produced a small amount of urine 200 mL. Continue diuresis. Hemodialysis today. Reviewed echocardiogram with him and discussed with cardiology, appreciate consultation, further evaluation possibly coronary angiogram is being considered by cardiology. Discussed with cardiology. Acute systolic and diastolic congestive heart failure. Continue treatment. Reassess chemistry with risk of electrolyte abnormality with dialysis, diuresis. Echocardiogram with noted decrease in to 45% global left ventricular hypokinesis grade 1 diastolic dysfunction. Noted moderate aortic valve stenosis. - s/p hemodialysis, continue - Lasix 60 mg IV push every 12 hours, monitor intake and output, electrolytes with risk of abnormality Added aspirin 81 mg p.o. monitor for risk of rebleeding with hemoptysis. 2. Community acquired pneumonia: So far without severe/massive hemoptysis. Started aspirin. Monitor for worsening hemoptysis. Reviewed CBC, leukocytosis resolved. Yesterday fevers up to 101.1. So far afebrile today. Continue to better coverage with Zosyn. Add flutter valve. MRSA PCR was negative. Vancomycin discontinued. Reviewed blood culture, sputum culture. Discussed with nursing, renal case manager. Monitor for risk of worsening renal dysfunction, cytopenia, C. difficile. 3. Elevated troponin: Added aspirin 81 mg. Monitor for risk of bleeding. Somewhat flat trend of troponin although higher than previous. New decrease in ejection fraction. Grade 1 diastolic dysfunction. Previously abnormal stress test. Appreciate cardiology consultation. Discussed with cardiology, considering further assessment with coronary angiogram to assess for possible ischemic cardiomyopathy. Monitor on telemetry with risk of arrhythmia. 4. ESRD (end stage renal disease): Long-standing ESRD receiving dialysis three times weekly TTS. Monitor for risk of hypovolemia. Monitor blood pressures. - Continue thrice-weekly hemodialysis schedule; session planned today Reviewed nephrology note. 5. Hemoptysis: Continue to monitor hemoptysis, so far without massive hemoptysis. Continue treatment of pneumonia. Discussed with RT, complete collection of AFB sputum samples. No PE on CTA. He reports history of being diagnosed with tuberculosis many years ago for which he had received treatment he does report some weight loss from 175->130 pounds, denies persistent cough, hemoptysis, night sweats. Without obvious imaging signs of tuberculosis. Less likely to be closely but will collect AFB sputum samples every 8 hours x 3. Plan: Anemia : Hemoglobin 8.8 g/dL; chronic anemia of unclear etiology. - Order complete blood count to reassess hemoglobin and trends Gout : Chronic gout managed with allopurinol. - Continue allopurinol 100 mg daily Hospitalization bundle : Inpatient measures and preferences during current admission. - Apply mechanical venous thromboembolism prophylaxis (compression devices) - Maintain code status as previously documented (patient declines resuscitative efforts) - End-stage renal disease on hemodialysis - HTN - Hyperlipidemia - Transient ischemic attack - Vitamin deficiencies (history) - Chronic anemia - Neuropathy - Treated tuberculosis (remote) - Coronary artery disease (abnormal stress test previously) PDMP PDMP Reviewed: Not Reviewed Attestations 2 Medical Necessity Statement*: Continue for assessment management of acute CHF with new decrease in ejection fraction, assessment for possible ischemic cardiomyopathy, community-acquired pneumonia and gentleman with underlying ESRD. and High MDM includes amount and/or complexity of data reviewed/ordered [ resulted lab(s)/test(s), ordered lab(s)/test(s) and other healthcare professional discussion] and described risk of complication, morbidity or mortality of management as documented Diagnoses Congestive heart failure I50.9 Community acquired pneumonia J18.9 Elevated troponin R79.89 ESRD (end stage renal disease) N18.6 Hemoptysis R04.2
[2025-02-01] MEDS: heparin, porcine 1,000 unit/mL INJ 10 mL 1000 UNIT IV (10:15)
--- NOTE | 2025-02-01 10:30 | PC.NURSE ---
Patient left unit for dialysis at 0955.
--- NOTE | 2025-02-01 10:52 | P.PN_ITS ---
<Statement entered by Sean Levine M.D - 02/01/25 11:03> Patient was cared for in conjunction with an advanced practice practitioner.? I reviewed the chart and all pertinent data including imaging, telemetry, and laboratory results.? I discussed the patient in detail with the advanced practice practitioner.? Please see?their note for progress note, testing results and agreed upon plan of care for the patient. Subjective 2 Subjective: He has done well overnight, no chest pain, shortness of breath improving. He will have dialysis today. Urine output 350 for the last 24 hours, diuresing with Lasix 60 mg IV twice daily. Blood pressure well-controlled. Vitals/I&O/Wt Last Vital Signs Temp 98.2 F 02/01/25 08:00 Pulse 57 L 02/01/25 08:00 Resp 19 H 02/01/25 08:00 BP 126/41 02/01/25 08:00 Pulse Ox 94 02/01/25 08:00 O2 Del Method Nasal Cannula 02/01/25 04:00 O2 Flow Rate 2 02/01/25 04:00 01/31/25 02/01/25 02/01/25 22:59 06:59 14:59 Intake Total 530 / 940 240 / 940 360 / 360 Output Total 200 / 350 Balance 530 / 590 40 / 590 360 / 360 Weight last 48 hrs Weight 123 lb 6.4 oz Weight 127 lb 4.8 oz Weight 127 lb Physical Exam 2 Const: COMMON NORMALS: no acute distress and patient oriented x3 GENERAL APPEARANCE: cooperative and comfortable ORIENTATION/CONSCIOUSNESS: Yes awake, Yes oriented to person, Yes oriented to place and Yes oriented to time Chest: COMMONS NORMALS: normal inspection of the chest and normal palpation of entire chest wall CHEST: Yes Symmetrical chest wall rise Resp: COMMON NORMALS: normal respiratory effort, No retractions and No use of accessory muscles EFFORT & INSPECTION: Yes symmetric chest movement A USCULTATION: rhonchi Cardio: COMMON NORMALS: regular rate, regular rhythm, S1 normal heart sound present, S2 normal heart sound present, No gallops present (Cardio), No clicks present (Cardio) and No rub (Cardio) RATE: regular rate RHYTHM: regular rhythm HEART SOUNDS: S1 normal heart sound present, S2 normal heart sound present and Murmur heart sound present systolic Location: left sternal border and right sternal border Intensity: III/ PERIPHERAL PULSES: radial pulses present Extremity: COMMON NORMALS: no pedal edema Neuro: COMMON NORMALS: patient oriented x3 and moves all extremities S ENSORIUM/ORIENTATION: Yes oriented to person, Yes oriented to place and Yes oriented to time Data 02/01/25 05:25 02/01/25 05:25 Micro: Microbiology 01/31/25 05:07 Mycobacterial Smear - Preliminary Sputum - Expectorated Sputum 01/30/25 19:09 Mycobacterial Smear - Preliminary Sputum - Expectorated Sputum 01/30/25 10:00 Gram Stain - Final Sputum - Expectorated Sputum Sputum Culture - Preliminary 01/30/25 06:10 Blood Culture - Preliminary Blood NEGATIVE TO DATE 01/30/25 05:45 Blood Culture - Preliminary Blood NEGATIVE TO DATE A&P Assessment and plan 1. ESRD (end stage renal disease): 2. Community acquired pneumonia: 3. Elevated troponin: 4. Congestive heart failure: Plan: For new onset systolic CHF, LVEF 45% and moderate aortic stenosis we will plan for coronary angiogram once he has recovered from pneumonia, is afebrile, and active TB ruled out. No chest pain. Continue aspirin, statin, antihypertensives carvedilol, nifedipine and hydralazine. PDMP PDMP Reviewed: Not Reviewed Attestations 2 Medical Necessity Statement*: Ischemic workup new onset LV dysfunction, elevated troponin, history of abnormal stress test Coding Level of Care Code Acute Code for [facility] Fwd Diagnoses ESRD (end stage renal disease) N18.6 Community acquired pneumonia J18.9 Elevated troponin R79.89 Congestive heart failure I50.9
--- NOTE | 2025-02-01 14:10 | PC.NURSE ---
Patient back to CSU from dialysis at 1245. 1500 ml removed. 1 Albumin given for low blood pressure of 100/39, blood pressure up to 130's / 40's after albumin.
[2025-02-01] MEDS: FUROsemide 10 mg/mL SDV 10mL 60 MG IVP (21:49)
[2025-02-01] MEDS: vancomycin 500 MG in sodium chloride 0.9% (plus) 100 ML 200 MG IV (21:50)
[2025-02-02 00:37] VITALS: BP 142/46; PULSE 68; RESP 20; TEMP 36.8; O2SAT 93
[2025-02-02 04:39] VITALS: BP 147/53; PULSE 65; RESP 21; O2SAT 94
[2025-02-02 04:57] LABS: Hematocrit 27.5 % (37-53); Hemoglobin 8.40 g/dL (11.27-16.99); Mean Corpuscular HGB Conc 30.5 g/dL (30-55); Mean Corpuscular Hemoglobin 29.4 pg (27-33); Mean Corpuscular Volume 96.2 fl (82-101); Nucleated Red Blood Cells % 0 %; Platelet Count 199 10^3/cmm (157-399); Red Blood Count 2.86 10^6/uL (3.85-5.65); White Blood Count 8.60 10^3/uL (3.29-11.43)
[2025-02-02] MEDS: piperacillin-tazobactam 3.375 GM in sodium chloride 0.9% (plus) 50 ML IV ×2 (05:29→17:26)
[2025-02-02 05:30] LABS: Anion Gap 17.6 (5-19); Blood Urea Nitrogen 32 mg/dL (8-23); Calcium 8.9 mg/dL (8.5-10.5); Carbon Dioxide 26 mmol/L (22-29); Chloride 100 mmol/L (98-107); Creatinine Clr Calc Pharmacy 9.0574; Glucose 88 mg/dL (65-115); Osmolality Calculated 294 mOsm/kg (285-295); Potassium 4.6 mmol/L (3.5-5.1); Sodium 139 mmol/L (136-145)
[2025-02-02] MEDS: NIFEdipine ER (24 hr) 30 mg Tablet 60 MG PO (08:41)
--- NOTE | 2025-02-02 09:24 | P.PN_ITS ---
Vitals/I&O/Wt Last Vital Signs Temp 98.3 F 02/02/25 00:37 Pulse 65 02/02/25 04:39 Resp 21 H 02/02/25 04:39 BP 147/53 02/02/25 04:39 Pulse Ox 94 02/02/25 04:39 O2 Del Method Nasal Cannula 02/02/25 04:39 O2 Flow Rate 2 02/01/25 04:00 02/01/25 02/02/25 02/02/25 22:59 06:59 14:59 Intake Total 890 / 1350 50 / 1400 Output Total 1974 100 / 100 Balance -1085 / -625 50 / -575 -100 / -100 Weight last 48 hrs Weight 59.285 kg Weight 55.973 kg Physical Exam 2 Const: COMMON NORMALS: patient oriented x3 and alert GENERAL APPEARANCE: c ooperative ORIENTATION/CONSCIOUSNESS: Yes awake HENMT: COMMON NORMALS: oropharynx normal Neck/C-Spine: COMMON NORMALS: no JVD Resp: COMMON NORMALS: clear to auscultation bilaterally AUSCULTATION: clear to auscultation bilaterally Cardio: COMMON NORMALS: no JVD, regular rhythm, S1 normal heart sound present, S2 normal heart sound present and No murmurs present (Cardio) RHYTHM: regular rhythm HEART SOUNDS: S1 normal heart sound present and S2 normal heart sound present GI: COMMON NORMALS: Normal to inspection, nondistended, normoactive bowel sounds present, Soft to palpation and non-tender PALPATION: Yes Soft to palpation Extremity: COMMON NORMALS: no joint enlargement and no pedal edema Neuro: COMMON NORMALS: patient oriented x3 and moves all extremities S ENSORIUM/ORIENTATION: Yes alert Skin: COMMON NORMALS: no rashes or lesions noted GENERAL SKIN EXAM: no rashes or lesions noted Data 02/02/25 04:15 02/02/25 04:15 Micro: Microbiology 01/30/25 10:00 Gram Stain - Final Sputum - Expectorated Sputum Sputum Culture - Preliminary 01/31/25 05:07 Mycobacterial Smear - Preliminary Sputum - Expectorated Sputum 01/30/25 19:09 Mycobacterial Smear - Preliminary Sputum - Expectorated Sputum A&P Assessment and plan 1. Congestive heart failure: He is improving. In negative balance. Reviewed vitals, intake and output. Produced a small amount of urine 100 mL. Continue diuresis. Hemodialysis. Reviewed echocardiogram with him and discussed with cardiology, appreciate consultation, further evaluation possibly coronary angiogram is planned for tomorrow by cardiology. Discussed with cardiology. Acute systolic and diastolic congestive heart failure. Continue treatment. Reassess chemistry with risk of electrolyte abnormality with dialysis, diuresis. Echocardiogram with noted decrease in to 45% global left ventricular hypokinesis grade 1 diastolic dysfunction. Noted moderate aortic valve stenosis. - s/p hemodialysis, continue - Lasix 60 mg IV push every 12 hours, monitor intake and output, electrolytes with risk of abnormality Added aspirin 81 mg p.o. monitor for risk of rebleeding with hemoptysis. 2. Community acquired pneumonia: So far without severe/massive hemoptysis. Tolerating aspirin. Monitor for worsening hemoptysis. Hb w slight decline to 8.4. No further hemoptysis. Reviewed CBC, leukocytosis resolved. Yesterday fevers up to 101.1. So far afebrile since 01/31 evening. Continue to better coverage with Zosyn. Add flutter valve. MRSA PCR was negative. Vancomycin discontinued. Reviewed blood culture, sputum culture. Discussed with nursing, disability case manager. Monitor for risk of worsening renal dysfunction, cytopenia, C. difficile. 3. Elevated troponin: Added aspirin 81 mg. Monitor for risk of bleeding. Somewhat flat trend of troponin although higher than previous. New decrease in ejection fraction. Grade 1 diastolic dysfunction. Previously abnormal stress test. Appreciate cardiology consultation. Discussed with cardiology, considering further assessment with coronary angiogram to assess for possible ischemic cardiomyopathy. Monitor on telemetry with risk of arrhythmia. 4. ESRD (end stage renal disease): Long-standing ESRD receiving dialysis three times weekly TTS. Monitor for risk of hypovolemia. Monitor blood pressures. - Continue thrice-weekly hemodialysis schedule; reviewed nephro note. Reviewed nephrology note. 5. Hemoptysis: Continue to monitor hemoptysis, so far without massive hemoptysis. Continue treatment of pneumonia. Discussed with RT, complete collection of AFB sputum samples. No PE on CTA. He reports history of being diagnosed with tuberculosis many years ago for which he had received treatment he does report some weight loss from 175->130 pounds, denies persistent cough, hemoptysis, night sweats. Without obvious imaging signs of tuberculosis. Less likely to be closely but collected AFB sputum samples every 8 hours x 3. D/w him, will need to follow up OP w his PCP. D/w cardiology. Plan: Anemia : Hemoglobin 8.4 g/dL; chronic anemia of unclear etiology. - Order complete blood count to reassess hemoglobin and trends Gout : Chronic gout managed with allopurinol. - Continue allopurinol 100 mg daily Hospitalization bundle : Inpatient measures and preferences during current admission. - Apply mechanical venous thromboembolism prophylaxis (compression devices) - Maintain code status as previously documented (patient declines resuscitative efforts) - End-stage renal disease on hemodialysis - HTN - Hyperlipidemia - Transient ischemic attack - Vitamin deficiencies (history) - Chronic anemia - Neuropathy - Treated tuberculosis (remote) - Coronary artery disease (abnormal stress test previously) PDMP PDMP Reviewed: Not Reviewed Attestations 2 Medical Necessity Statement*: Continue for assessment management of acute CHF with new decrease in ejection fraction, assessment for possible ischemic cardiomyopathy, community-acquired pneumonia and gentleman with underlying ESRD. Diagnoses Congestive heart failure I50.9 Community acquired pneumonia J18.9 Elevated troponin R79.89 ESRD (end stage renal disease) N18.6 Hemoptysis R04.2
--- NOTE | 2025-02-02 09:30 | P.PN_ITS ---
<Statement entered by Sean Levine M.D - 02/04/25 11:56> Patient was cared for in conjunction with an advanced practice practitioner.? I reviewed the chart and all pertinent data including imaging, telemetry, and laboratory results.? I discussed the patient in detail with the advanced practice practitioner.? Please see?their note for progress note, testing results and agreed upon plan of care for the patient. Subjective 2 Subjective: He continues to improve, no worsening shortness of breath or chest pain. Still on oxygen, 2 L nasal cannula. Breath sounds improving, still coarse. Vitals/I&O/Wt Last Vital Signs Temp 98.6 F 02/02/25 09:33 Pulse 74 02/02/25 09:33 Resp 23 H 02/02/25 09:33 BP 108/56 02/02/25 09:33 Pulse Ox 91 02/02/25 09:33 O2 Del Method Nasal Cannula 02/02/25 09:33 O2 Flow Rate 2 02/02/25 09:33 02/01/25 02/02/25 02/02/25 22:59 06:59 14:59 Intake Total 890 / 1400 50 / 1400 410 / 410 Output Total 1974 / 1974 100 / 100 Balance -1085 / -575 50 / -575 310 / 310 Weight last 48 hrs Weight 130 lb 11.2 oz Weight 123 lb 6.4 oz Physical Exam 2 Const: COMMON NORMALS: no acute distress and patient oriented x3 GENERAL APPEARANCE: cooperative and comfortable ORIENTATION/CONSCIOUSNESS: Yes awake, Yes oriented to person, Yes oriented to place and Yes oriented to time Chest: COMMONS NORMALS: normal inspection of the chest and normal palpation of entire chest wall CHEST: Yes Symmetrical chest wall rise Resp: COMMON NORMALS: normal respiratory effort, No retractions and No use of accessory muscles EFFORT & INSPECTION: Yes symmetric chest movement Cardio: COMMON NORMALS: regular rate, regular rhythm, S1 normal heart sound present, S2 normal heart sound present, No gallops present (Cardio), No clicks present (Cardio), No murmurs present (Cardio) and No rub (Cardio) RATE: r egular rate RHYTHM: regular rhythm HEART SOUNDS: S1 normal heart sound present and S2 normal heart sound present PERIPHERAL PULSES: radial pulses present Extremity: COMMON NORMALS: no pedal edema Neuro: COMMON NORMALS: patient oriented x3 and moves all extremities S ENSORIUM/ORIENTATION: Yes oriented to person, Yes oriented to place and Yes oriented to time Data 02/02/25 04:15 02/02/25 04:15 Micro: Microbiology 01/30/25 10:00 Gram Stain - Final Sputum - Expectorated Sputum Sputum Culture - Preliminary Gram Negative Rods 01/31/25 05:07 Mycobacterial Smear - Preliminary Sputum - Expectorated Sputum 01/30/25 19:09 Mycobacterial Smear - Preliminary Sputum - Expectorated Sputum A&P Assessment and plan 1. ESRD (end stage renal disease): 2. Community acquired pneumonia: 3. Elevated troponin: 4. Congestive heart failure: Plan: He has been afebrile for the last 2 days, will plan for coronary angiogram tomorrow morning to evaluate new onset LV dysfunction, troponin elevation. He received dialysis yesterday, has dialysis planned for tomorrow after procedure. Blood pressure well-controlled. Continue aspirin, hydralazine, nifedipine, atorvastatin, Lasix 60 mg twice daily, carvedilol 25 mg twice daily. PDMP PDMP Reviewed: Not Reviewed Attestations 2 Medical Necessity Statement*: [facility] tomorrow Coding Level of Care Code Acute Code for [facility] Fwd Diagnoses ESRD (end stage renal disease) N18.6 Community acquired pneumonia J18.9 Elevated troponin R79.89 Congestive heart failure I50.9
[2025-02-02 09:33] VITALS: BP 108/56; PULSE 74; RESP 23; TEMP 37; O2SAT 91
[2025-02-02] MEDS: FUROsemide 10 mg/mL SDV 10mL 60 MG IVP ×2 (09:44→22:00)
--- NOTE | 2025-02-02 11:02 | PC.SOCIAL ---
IMM Update pg 2 of IMM Updated and reviewed w/ patient. Copy provided and copy dated, initialed and placed in chart.
[2025-02-02 12:00] VITALS: BP 139/57; PULSE 61; RESP 24; TEMP 36.8; O2SAT 96
--- NOTE | 2025-02-02 13:07 | P.PN_ITS ---
Subjective 2 Subjective: no new c/o Medications: Reviewed: Yes Vitals/I&O/Wt Last Vital Signs Temp 98.3 F 02/02/25 12:00 Pulse 61 02/02/25 12:00 Resp 24 H 02/02/25 12:00 BP 139/57 02/02/25 12:00 Pulse Ox 96 02/02/25 12:00 O2 Del Method Nasal Cannula 02/02/25 12:00 O2 Flow Rate 2 02/02/25 09:33 02/01/25 02/02/25 02/02/25 22:59 06:59 14:59 Intake Total 890 / 1350 50 / 1400 410 / 410 Output Total 1974 100 / 100 Balance -1085 / -625 50 / -575 310 / 310 Weight last 48 hrs Weight 59.285 kg Weight 55.973 kg Physical Exam 2 Narrative: elderly male, in no distress Getting dialysis No JVD S1-S2 regular rate rhythm per report Lungs with decreased breath sounds Soft nontender per report No pedal edema Data 02/03/25 02:24 02/03/25 02:24 Micro: Microbiology 01/30/25 10:00 Gram Stain - Final Sputum - Expectorated Sputum Sputum Culture - Preliminary Gram Negative Rods 01/31/25 05:07 Mycobacterial Smear - Preliminary Sputum - Expectorated Sputum 01/30/25 19:09 Mycobacterial Smear - Preliminary Sputum - Expectorated Sputum A&P Assessment and plan 1. ESRD (end stage renal disease): Plan: 1. End-stage renal disease: On TTS schedule 2. Acute respiratory failure in the setting of pneumonia and volume overload, ultrafiltration with HD as above 3. CHF exacerbation, 4. Anemia: Hemoglobin of 8.8 , monitor 5. Community-acquired pneumonia, management per primary team PDMP PDMP Reviewed: Not Reviewed Attestations 2 Medical Necessity Statement*: per blair Coding Level of Care Code Acute Code for [facility] Fwd Diagnoses ESRD (end stage renal disease) N18.6
[2025-02-02 16:00] VITALS: BP 141/54; PULSE 65; RESP 17; TEMP 36.7; O2SAT 96
[2025-02-02 19:10] VITALS: BP 142/62; PULSE 68; RESP 24; TEMP 37.2; O2SAT 97
[2025-02-03] VITALS (36 sets, daily range): BP systolic 107–171; BP diastolic 40–76; PULSE 56–74; RESP 4–28; TEMP 36.6–37.1; O2SAT 95–100
[2025-02-03 04:35] LABS: Hematocrit 28.0 % (37-53); Hemoglobin 8.70 g/dL (11.27-16.99); Mean Corpuscular HGB Conc 31.1 g/dL (30-55); Mean Corpuscular Hemoglobin 30.1 pg (27-33); Mean Corpuscular Volume 96.9 fl (82-101); Nucleated Red Blood Cells % 0 %; Platelet Count 226 10^3/cmm (157-399); Red Blood Count 2.89 10^6/uL (3.85-5.65); White Blood Count 7.19 10^3/uL (3.29-11.43)
[2025-02-03 05:04] LABS: Anion Gap 18.0 (5-19); Blood Urea Nitrogen 46 mg/dL (8-23); Calcium 9.4 mg/dL (8.5-10.5); Carbon Dioxide 26 mmol/L (22-29); Chloride 98 mmol/L (98-107); Creatinine Clr Calc Pharmacy 7.7269; Glucose 110 mg/dL (65-115); Osmolality Calculated 297 mOsm/kg (285-295); Potassium 5.0 mmol/L (3.5-5.1); Sodium 137 mmol/L (136-145)
[2025-02-03] MEDS: piperacillin-tazobactam 3.375 GM in sodium chloride 0.9% (plus) 50 ML IV ×2 (05:57→20:03)
--- NOTE | 2025-02-03 07:11 | PC.NURSE ---
to cardiac lab associate via bed at 0700
--- NOTE | 2025-02-03 07:17 | W.PM.OPSUD ---
Surgery/Procedure H&P Update DATE OF PROCEDURE: February 03, 2025 DATE H&P PERFORMED: 01/31/25 H&P UPDATE INFORMATION: I have reviewed H&P completed within last 30 days, I have examined patient prior to procedure and No changes to prior documentation PREOP DIAGNOSIS: Troponin elevation/ congestive heart failure PRIMARY INDICATION FOR PROCEDURE: Troponin elevation/ congestive heart failure PLANNED PROCEDURE: Operation Date: 02/03/25 07:00 Proposed Procedures p Cardiac Catheterization(Not Applicable) - Sean Levine M.D Possible percutaneous coronary intervention PATIENT REASSESSED PRIOR TO SEDATION, WITH NO CHANGE NOTED: Yes PHYSICAL EXAM: alert, oriented x 3, clear to auscultation bilaterally and regular rate & rhythm AIRWAY EVAL/ANESTHESIA PLAN: normal airway, ASA III, Local Anesthesia, Risks, benefits & alternatives of sedation and/or procedure discussed and Patient agrees to continue as planned ADDITIONAL INFORMATION: Moderate sedation
--- NOTE | 2025-02-03 08:02 | PM.PROC ---
Procedure Note: Date of procedure: 02/03/25 Pre-procedure diagnosis: Troponin elevation/ congestive heart failure Post-procedure diagnosis: other Procedure: Patent, calcified coronary arteries. Non-obstructive coronary artery disease Aggressive medical therapy Performing Provider: Sean Levine Estimated blood loss (mL): 5 Complications: None Condition: stable Disposition: floor Coding Level of Care Code Acute Code for [facility] Fwd
--- NOTE | 2025-02-03 08:35 | PC.NURSE ---
return from cardiac cathead operator via bed at 0820.pt is sleepy but easily aroused.sr on monitor.right wrist with tr band on and inflated.right hand is warm to touch and with brisk capillary refill.palpable pulse noted distal to tr band.no hematoma noted.right femoral artery sheath intact.to pressurized system.right leg is warm to touch and with brisk capillary refill.palpable dp pulse noted.no hematoma noted.pt's son instructed in pt's activity restrictions s/p radial and femoral procedures..and instructed to notify staff for any bleeding ,pain,sob,numbness..or for any concerns at all.he verb understanding of instructions.
--- NOTE | 2025-02-03 09:08 | P.PN_ITS ---
Subjective 2 Subjective: Patient is doing well. Coronary angiogram did not show severe CAD. Vitals/I&O/Wt Last Vital Signs Temp 97.9 F 02/03/25 03:46 Pulse 69 02/03/25 03:46 Resp 17 02/03/25 03:46 BP 171/57 02/03/25 03:46 Pulse Ox 96 02/03/25 03:46 O2 Del Method Nasal Cannula 02/03/25 03:46 O2 Flow Rate 2 02/02/25 09:33 02/02/25 02/03/25 02/03/25 22:59 06:59 14:59 Intake Total 1003 / 1853 0 / 1853 Output Total 200 / 350 Balance 803 / 1503 0 / 1503 Weight last 48 hrs Weight 133 lb 9.6 oz Weight 133 lb 12.8 oz Weight 130 lb 11.2 oz Physical Exam 2 Narrative: GENERAL: Patient is alert, awake and oriented x3. [] NECK: No jugular vein distension. [] HEENT: No cyanosis. No icterus. No pallor. [] HEART: Regular S1 and S2. No murmur, rub or gallop. [] LUNGS: Clear to auscultate bilaterally. [] CENTRAL NERVOUS SYSTEM: Grossly nonfocal. [] EXTREMITIES: Lower extremities with no edema bilaterally. Data 02/04/25 02:21 02/04/25 02:21 Micro: Microbiology 01/30/25 10:00 Gram Stain - Final Sputum - Expectorated Sputum Sputum Culture - Preliminary Gram Negative Rods A&P Assessment and plan 1. ESRD (end stage renal disease): 2. Community acquired pneumonia: 3. Elevated troponin: 4. Congestive heart failure: Plan: Patient is stable from cardiac standpoint. No significant CAD. Continue medical therapy. Outpatient cardiology follow-up PDMP PDMP Reviewed: Not Reviewed Attestations 2 Medical Necessity Statement*: Care expected to cross 2 midnights. Coding Level of Care Code Acute Code for [facility] Diagnoses ESRD (end stage renal disease) N18.6 Community acquired pneumonia J18.9 Elevated troponin R79.89 Congestive heart failure I50.9
[2025-02-03] MEDS: NIFEdipine ER (24 hr) 30 mg Tablet 60 MG PO (09:19)
--- NOTE | 2025-02-03 10:18 | PC.NURSE ---
pt is awake and alert now.right femoral arterial sheath pulled at 0850.manual pressure applied x 20 min.vss through-out procedure.right leg remained warm and with brisk capillary refill.palpable dp pulse noted.no hematoma formation noted.site dressed with 2x2 gauze and secured with biocclusive drsg.pt instructed in activity restrictions s/p femoral artery sheath pull...and instructed to notify staff for any bleeding,numbness,pain,sob...or for any concerns at all.pt verb understanding of instructions
--- NOTE | 2025-02-03 10:33 | P.PN_ITS ---
Subjective 2 Subjective: no new c/o Medications: Reviewed: Yes Vitals/I&O/Wt Last Vital Signs Temp 97.9 F 02/03/25 03:46 Pulse 69 02/03/25 03:46 Resp 17 02/03/25 03:46 BP 171/57 02/03/25 03:46 Pulse Ox 96 02/03/25 03:46 O2 Del Method Nasal Cannula 02/03/25 03:46 O2 Flow Rate 2 02/02/25 09:33 02/02/25 02/03/25 02/03/25 22:59 06:59 14:59 Intake Total 1003 / 1853 0 / 1853 240 / 240 Output Total 200 / 350 Balance 803 / 1503 0 / 1503 240 / 240 Weight last 48 hrs Weight 60.6 kg Weight 60.691 kg Weight 59.285 kg Physical Exam 2 Narrative: elderly male, in no distress Getting dialysis No JVD S1-S2 regular rate rhythm per report Lungs with decreased breath sounds Soft nontender per report No pedal edema Data 02/03/25 02:24 02/03/25 02:24 Micro: Microbiology 01/30/25 10:00 Gram Stain - Final Sputum - Expectorated Sputum Sputum Culture - Preliminary Gram Negative Rods A&P Assessment and plan 1. ESRD (end stage renal disease): Plan: 1. End-stage renal disease: On TTS schedule 2. Acute respiratory failure in the setting of pneumonia and volume overload, ultrafiltration with HD as above 3. CHF exacerbation, 4. Anemia: Hemoglobin of 8.8 , monitor 5. Community-acquired pneumonia, management per primary team PDMP PDMP Reviewed: Not Reviewed Attestations 2 Medical Necessity Statement*: per medicine Coding Level of Care Code Acute Code for [facility] Fwd Diagnoses ESRD (end stage renal disease) N18.6
[2025-02-03] MEDS: FUROsemide 10 mg/mL SDV 10mL 60 MG IVP ×2 (11:12→22:44)
--- NOTE | 2025-02-03 13:16 | PC.NURSE ---
tr band slowly deflated and eventually removed at 1200.right hand and arm remain warm to touch and with brisk capillary refill.palpable radial pulse noted.no hematoma noted.site dressed with 2x2 gauze and secured with biocclusive drsg.pt instructed in activity restrictions s/p tr band removal and instructed to notify staff for any bleeding,pain,numbness,sob,or for any concerns at all.pt verb understanding of instructions
--- NOTE | 2025-02-03 13:39 | P.PN_ITS ---
Subjective 2 Subjective: Status post coronary angiogram this morning. Noted to have patent calcified coronary arteries. No obstructive CAD found.Denies any new complaints today. No hemoptysis. Medications: Reviewed: Yes Vitals/I&O/Wt Last Vital Signs Temp 98.7 F 02/03/25 12:00 Pulse 68 02/03/25 12:45 Resp 18 02/03/25 12:45 BP 128/47 02/03/25 12:45 Pulse Ox 95 02/03/25 12:45 O2 Del Method Nasal Cannula 02/03/25 12:00 O2 Flow Rate 2 02/03/25 12:00 02/02/25 02/03/25 02/03/25 22:59 06:59 14:59 Intake Total 1003 / 1853 0 / 1853 290 / 290 Output Total 200 / 350 Balance 803 / 1503 0 / 1503 290 / 290 Weight last 48 hrs Weight 60.6 kg Weight 60.691 kg Weight 59.285 kg Physical Exam 2 Narrative: General: No acute distress, AO x3 HEENT: PERRLA, pupils bilaterally equal and reactive, pallors not present Chest: Normal vesicular breath sounds, no added sounds, equal good air entry bilaterally CVS: S1-S2 regular, no murmurs, no tachycardia, no gallops, no rubs Abdomen: Soft, nontender, no organomegaly, bowel sounds present Neuro: No focal deficits, no facial deformity, AO x3, power 5/5 in all limbs Data 02/03/25 02:24 02/03/25 02:24 Micro: Microbiology 01/30/25 10:00 Gram Stain - Final Sputum - Expectorated Sputum Sputum Culture - Preliminary Gram Negative Rods A&P Assessment and plan 1. Congestive heart failure: He is improving. In negative balance. Reviewed vitals, intake and output. Produced a small amount of urine 100 mL. Continue diuresis. Hemodialysis. Reviewed echocardiogram with him and discussed with cardiology, appreciate consultation, further evaluation possibly coronary angiogram is planned for tomorrow by cardiology. Discussed with cardiology. Acute systolic and diastolic congestive heart failure. Continue treatment. Reassess chemistry with risk of electrolyte abnormality with dialysis, diuresis. Echocardiogram with noted decrease in to 45% global left ventricular hypokinesis grade 1 diastolic dysfunction. Noted moderate aortic valve stenosis. - s/p hemodialysis, continue - Lasix 60 mg IV push every 12 hours, monitor intake and output, electrolytes with risk of abnormality Added aspirin 81 mg p.o. monitor for risk of rebleeding with hemoptysis. 2. Community acquired pneumonia: So far without severe/massive hemoptysis. Tolerating aspirin. Monitor for worsening hemoptysis. Hb w slight decline to 8.4. No further hemoptysis. Reviewed CBC, leukocytosis resolved. Yesterday fevers up to 101.1. So far afebrile since 01/31 evening. Continue to better coverage with Zosyn. Add flutter valve. MRSA PCR was negative. Vancomycin discontinued. Reviewed blood culture, sputum culture. 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 Monitor for risk of worsening renal dysfunction, cytopenia, C. difficile. 3. Elevated troponin: Added aspirin 81 mg. Monitor for risk of bleeding. Somewhat flat trend of troponin although higher than previous. New decrease in ejection fraction. Grade 1 diastolic dysfunction. Previously abnormal stress test. Appreciate cardiology consultation. Discussed with cardiology, considering further assessment with coronary angiogram to assess for possible ischemic cardiomyopathy. Monitor on telemetry with risk of arrhythmia. 4. ESRD (end stage renal disease): Long-standing ESRD receiving dialysis three times weekly TTS. Monitor for risk of hypovolemia. Monitor blood pressures. - Continue thrice-weekly hemodialysis schedule; reviewed nephro note. Reviewed nephrology note. 5. Hemoptysis: Continue to monitor hemoptysis, so far without massive hemoptysis. Continue treatment of pneumonia. Discussed with RT, complete collection of AFB sputum samples. No PE on CTA. He reports history of being diagnosed with tuberculosis many years ago for which he had received treatment he does report some weight loss from 175->130 pounds, denies persistent cough, hemoptysis, night sweats. Without obvious imaging signs of tuberculosis. Less likely to be closely but collected AFB sputum samples every 8 hours x 3. D/w him, will need to follow up OP w his PCP. D/w cardiology. Plan: Anemia : Hemoglobin 8.4 g/dL; chronic anemia of unclear etiology. - Order complete blood count to reassess hemoglobin and trends Gout : Chronic gout managed with allopurinol. - Continue allopurinol 100 mg daily Hospitalization bundle : Inpatient measures and preferences during current admission. - Apply mechanical venous thromboembolism prophylaxis (compression devices) - Maintain code status as previously documented (patient declines resuscitative efforts) - End-stage renal disease on hemodialysis - HTN - Hyperlipidemia - Transient ischemic attack - Vitamin deficiencies (history) - Chronic anemia - Neuropathy - Treated tuberculosis (remote) - Coronary artery disease (abnormal stress test previously) February 03, 2025 Status post coronary angiogram this morning. No obstructive CAD found. Denies any new symptoms today. Remains on 2 L/min supplemental O2. Plan for dialysis today. Continue aspirin carvedilol nifedipine. Continue piperacillin/tazobactam. Sputum culture showing gram-negative rods pending further identification. PDMP PDMP Reviewed: Not Reviewed Attestations 2 Medical Necessity Statement*: Status post angiogram today. Coding Level of Care Code Acute Code for Chg Fwd Moderate MDM includes number and complexity of problems actively addressed during encounter, amount and/or complexity of data reviewed/ordered and described risk of complication, morbidity or mortality of management as documented Diagnoses Congestive heart failure I50.9 Community acquired pneumonia J18.9 Elevated troponin R79.89 ESRD (end stage renal disease) N18.6 Hemoptysis R04.2
--- NOTE | 2025-02-03 13:44 | PC.NURSE ---
Addendum entered by Audra Garcia RN 02/03/25 13:50: when iv came out..a skin tear was created.cleansed with ns and optifoam applied Original Note: pt found up in room...iv had been pulled out..pt had bm on floor.call light was in reach.pt instructed to not get out of bed w/o assist.pt verb understanding of instructions
--- NOTE | 2025-02-03 16:26 | PC.NURSE ---
to dialysis via bed at 1615
[2025-02-04] VITALS: BP 126/92; PULSE 72; RESP 23; TEMP 37.1; O2SAT 99
[2025-02-04 04:00] VITALS: BP 91/40; PULSE 70; RESP 24; TEMP 37.1; O2SAT 95
[2025-02-04 04:38] LABS: Hematocrit 28.5 % (37-53); Hemoglobin 8.80 g/dL (11.27-16.99); Mean Corpuscular HGB Conc 30.9 g/dL (30-55); Mean Corpuscular Hemoglobin 29.7 pg (27-33); Mean Corpuscular Volume 96.3 fl (82-101); Nucleated Red Blood Cells % 0 %; Platelet Count 242 10^3/cmm (157-399); Red Blood Count 2.96 10^6/uL (3.85-5.65); White Blood Count 7.25 10^3/uL (3.29-11.43)
[2025-02-04 04:52] LABS: Alanine Aminotransferase 9 U/L (0-41); Albumin Level 3.3 g/dL (3.5-5.2); Alkaline Phosphatase 145 U/L (40-130); Anion Gap 17.8 (5-19); Aspartate Amino Transferase 15 U/L (0-40); Blood Urea Nitrogen 26 mg/dL (8-23); Calcium 9.2 mg/dL (8.5-10.5); Carbon Dioxide 27 mmol/L (22-29); Chloride 98 mmol/L (98-107); Creatinine Clr Calc Pharmacy 10.3472; Globulin 3.5 g/dL (1.3-4.6); Glucose 71 mg/dL (65-115); Osmolality Calculated 289 mOsm/kg (285-295); Potassium 4.8 mmol/L (3.5-5.1); Sodium 138 mmol/L (136-145); Total Protein 6.8 g/dL (6.6-8.7)
[2025-02-04] MEDS: piperacillin-tazobactam 3.375 GM in sodium chloride 0.9% (plus) 50 ML IV (05:07)
[2025-02-04 07:38] VITALS: BP 157/37; PULSE 66; RESP 20; TEMP 36.8; O2SAT 98
[2025-02-04] MEDS: NIFEdipine ER (24 hr) 30 mg Tablet 60 MG PO (08:17)
[2025-02-04] MEDS: FUROsemide 10 mg/mL SDV 10mL 60 MG IVP (08:29)
--- NOTE | 2025-02-04 09:30 | PC.NURSE ---
This RN agrees with all documentation made by SPN.
--- NOTE | 2025-02-04 10:23 | P.DS_ITS ---
Discharge Providers Date of Admission: 01/30/25 10:50 Date of Discharge: February 04, 2025 Attending Provider at Admission: Dewey Vergara Attending Provider at Discharge: Louise Finch MD Primary Care Provider: Humera Mayen MD Diagnoses at Discharge Discharge Diagnosis 1. Congestive heart failure: 2. Community acquired pneumonia: 3. Elevated troponin: 4. ESRD (end stage renal disease): 5. Hemoptysis: Reason for Visit Reason for Visit: SOB Hospital Course Hospital Course 84-year-old gentleman with history of CHF, NSTEMI, ESRD on dialysis TTS, TIA, HLD, gout, anemia, treated for tuberculosis years ago, was admitted with pneumonia and acute CHF, with hemoptysis.? Started on treatment with antibiotics with Zosyn and vancomycin, de-escalated off vancomycin.Completed treatment for 6 days.? Hemoptysis resolved.? Lower likelihood of tuberculosis, but did endorse some recent weight loss, requested AFB x 3 which have been collected, results pending, will need to be followed up as outpatient.? CHF with improvement, hypoxia gradually improving.? Subjectively he is feeling much better.? Consulted cardiology and he underwent coronary angiogram due to noted new decrease in ejection fraction down to 45%.? Patent, calcified coronary arteries. Non-obstructive coronary artery disease was noted. Home oxygen evaluation was perfromed and home 02 was arranged. ? Overall he is clinically much improved and eager to be discharged home. Physical Exam Narrative: General: No acute distress, AO x3 HEENT: PERRLA, pupils bilaterally equal and reactive, pallors not present Chest: Normal vesicular breath sounds, no added sounds, equal good air entry bilaterally CVS: S1-S2 regular, no murmurs, no tachycardia, no gallops, no rubs Abdomen: Soft, nontender, no organomegaly, bowel sounds present Neuro: No focal deficits, no facial deformity, AO x3, power 5/5 in all limbs Discharge Data Studies Completed and Pending Completed Studies During Hospitalization Category Date Time Status CT angio chest PE protcl [id number] Stat Cat Scan 01/30/25 08:04 Completed XR chest 1V portable [id number] Stat Exams 01/30/25 05:42 Completed CV. echo complete* [id number] Routine Ultrasound 01/30/25 10:28 Completed Pending at discharge Category Date Time Status INFORMATION RESOURCE CONSULTANT request for service Routine Exams 02/03/25 07:00 Ordered Cardiac Stress Test MIBI [Sestamibi Stress Test Request Exams 01/31/25 15:40 Stop Req ] Routine AFB [Mycobacteria, Culture w/Fluor] Q8H Lab 01/30/25 19:09 Received AFB [Mycobacteria, Culture w/Fluor] Q8H Lab 01/30/25 19:09 Results AFB [Mycobacteria, Culture w/Fluor] Q8H Lab 01/31/25 05:07 Results AFB [Mycobacteria, Culture w/Fluor] Routine Lab 01/31/25 10:10 Received Occult Blood Stool [Immunochemical Fecal OCB] Routine Lab 02/02/25 07:35 Uncollected Radiology Impressions Chest X-Ray 01/30/25 05:42 IMPRESSION: CHF with pulmonary edema and effusions. Superimposed pneumonia not excluded. Chest CTA 01/30/25 08:04 Impression: 1. Negative for pulmonary embolic disease. 2. Bilateral pleural effusions, diminished compared to prior exam. 3. Bilateral lower lobe atelectasis unchanged. 4. Cardiomegaly and extensive atherosclerosis of the cardiac valves, coronary arteries and thoracic aorta. Laboratory Results WBC 7.25 10^3/uL (3.29-11.43) 02/04/25 02:21 RBC 2.96 10^6/uL (3.85-5.65) L 02/04/25 02:21 Hgb 8.80 g/dL (11.27-16.99) L 02/04/25 02:21 Hct 28.5 % (37-53) L 02/04/25 02:21 MCV 96.3 fl (82-101) 02/04/25 02:21 MCH 29.7 pg (27-33) 02/04/25 02:21 MCHC 30.9 g/dL (30-55) 02/04/25 02:21 RDW 15.7 % (12.1-15.1) H 02/04/25 02:21 Plt Count 242 10^3/cmm (157-399) 02/04/25 02:21 MPV 10.8 fL (7.4-10.4) H 02/04/25 02:21 Neut % (Auto) 70.5 % 02/04/25 02:21 Lymph % (Auto) 11.9 % 02/04/25 02:21 [place] % (Auto) 11.9 % 02/04/25 02:21 Eos % (Auto) 3.6 % 02/04/25 02:21 Baso % (Auto) 0.6 % 02/04/25 02:21 Neut # (Auto) 5.12 10^3/uL (1.8-7.7) 02/04/25 02:21 Lymph # (Auto) 0.9 10^3/uL (0.8-4.8) 02/04/25 02:21 [place] # (Auto) 0.9 10^3/uL (0.2-0.9) 02/04/25 02:21 Eos # (Auto) 0.3 10^3/uL (0.0-0.8) 02/04/25 02:21 Baso # (Auto) 0.0 10^3/uL (0.0-0.1) 02/04/25 02:21 Nucleated RBC % (auto) 0 % 02/04/25 02:21 Nucleated RBCs # 0.0 /100WBC 02/04/25 02:21 D-Dimer 7.17 ug/mLFEU (0-0.59) H 01/30/25 05:45 Sodium 138 mmol/L (136-145) 02/04/25 02:21 Potassium 4.8 mmol/L (3.5-5.1) 02/04/25 02:21 Chloride 98 mmol/L (98-107) 02/04/25 02:21 Carbon Dioxide 27 mmol/L (22-29) 02/04/25 02:21 Anion Gap 17.8 (5-19) 02/04/25 02:21 BUN 26 mg/dL (8-23) H 02/04/25 02:21 Creatinine 4.4 mg/dL (0.7-1.2) H 02/04/25 02:21 GFR Calculation Not Reportable 02/04/25 02:21 Glucose 71 mg/dL (65-115) 02/04/25 02:21 Calculated Osmolality 289 mOsm/kg (285-295) 02/04/25 02:21 Lactic Acid 1.0 mmol/L (0.5-2.2) 01/30/25 05:45 Calcium 9.2 mg/dL (8.5-10.5) 02/04/25 02:21 Phosphorus 3.3 mg/dL (2.5-4.5) 01/31/25 03:55 Total Bilirubin 0.3 mg/dL (0.15-1.2) 02/04/25 02:21 AST 15 U/L (0-40) 02/04/25 02:21 ALT 9 U/L (0-41) 02/04/25 02:21 Alkaline Phosphatase 145 U/L (40-130) H 02/04/25 02:21 Troponin T Baseline 181 ng/L (0-15) H* 01/30/25 05:45 Troponin T 120 Minute 137.4 ng/L (0-15) H 01/30/25 07:35 Delta Troponin T -43.6 ABS# (0-10) L 01/30/25 07:35 Troponin T Hi Sens 6Hr 197.4 ng/L (0-15) H 01/30/25 12:29 Troponin T Hi Sens 6Hr Delta 16.4 ng/L (0-12) H* 01/30/25 12:29 NT-Pro-B Natriuret Pep > 60697 pg/mL (0-450) H 01/30/25 05:45 Total Protein 6.8 g/dL (6.6-8.7) 02/04/25 02:21 Albumin 3.3 g/dL (3.5-5.2) L 02/04/25 02:21 Globulin 3.5 g/dL (1.3-4.6) 02/04/25 02:21 Nasal MRSA (PCR) Not detected (Negative) 01/31/25 10:44 Random Vancomycin 13.5 ug/mL (20.0-40.0) L 01/31/25 03:55 Influenza A (PCR) Negative (Negative) 01/30/25 06:01 Influenza Type B (PCR) Negative (Negative) 01/30/25 06:01 RSV (PCR) Negative (Negative) 01/30/25 06:01 SARS-CoV-2 (PCR) Negative (Negative) 01/30/25 06:01 Vitals Last Vital Signs Temp 98.3 F 02/04/25 07:38 Pulse 66 02/04/25 07:38 Resp 20 H 02/04/25 07:38 BP 157/37 02/04/25 07:38 Pulse Ox 98 02/04/25 07:38 O2 Del Method Nasal Cannula 02/04/25 07:38 O2 Flow Rate 1 02/04/25 07:38 Discharge Plan Discharge Patient Disposition: Home Condition: Stable Prescriptions: New aspirin 81 mg Tablet,Delayed Release (Dr/Ec) 81 mg PO DAILY 30 Days Qty: 30 0RF Continued allopurinol 100 mg tablet 100 mg PO QPM calcium acetate 667 mg tablet 667 mg PO BID trazodone 100 mg tablet 50 mg PO BEDTIME carvedilol 25 mg Tablet 25 mg PO BID nifedipine 60 mg Tablet Extended Release 24hr 60 mg PO QAM atorvastatin 40 mg tablet 20 mg PO QPM hydralazine 25 mg Tablet 25 mg PO BEDTIME guaifenesin [Mucinex] 600 mg Tablet Extended Release 12hr 600 mg PO BID PRN (Reason: Congestion) Discharge Order = DC NOW: Discharge Order (Routine); Ordered 02/04/25 Ordered By: Louise Finch Other Ambulatory Orders: DME: Oxygen (Order) Location: None Selected Ordered By: Dewey Vergara Referrals: [facility] [place] - [Outside] Referral Note: Patient already has a regular dialysis schedule, please stay on that schedule after discharge Humera Mayen MD [Primary Care Provider, [facility]] - 02/20/25 10:30 am Discharge Diet: Usual diet Discharge Activity: Resume usual activity Patient Instructions: Opioid Safety, Patient Portal & [place] Instructions Discharge Attestations Time Spent in Discharge Care*: greater than 30 min Quality Metrics Clinical Quality Measures [ No reported AMI, CVA or VTE this stay] Coding Level of Care Code Acute Code for Chg Fwd Diagnoses Congestive heart failure I50.9 Community acquired pneumonia J18.9 Elevated troponin R79.89 ESRD (end stage renal disease) N18.6 Hemoptysis R04.2
--- NOTE | 2025-02-04 10:25 | PC.NURSE ---
IV and telemetry removed for discharge. Patient getting dressed and has called for transportation.
--- NOTE | 2025-02-04 11:12 | PC.NURSE ---
Patient discharged to home. Instruction provided regarding follow up needs, chair time for dialysis and medications. Patient verbalized complete understanding. Son at bedside with patient's personal wheelchair. IV and telemetry removed. Patient denies pain or needs. No distress observed. Patient taken by son to private vehicle for discharge.
[2025-02-04 11:14] VITALS: BP 157/37; PULSE 66; RESP 22; O2SAT 100
--- NOTE | 2025-02-04 12:13 | PC.NURSE ---
patient refused to take home his home oxygen stating, I don't need that and the company is supposed to come pick it up, Patient left bottle and tubing in the room at discharge. Son at side.
--- NOTE | 2025-02-04 20:16 | P.PN_ITS ---
Subjective 2 Subjective: denies any complaints Medications: Reviewed: Yes Vitals/I&O/Wt Last Vital Signs Temp 98.3 F 02/04/25 07:38 Pulse 66 02/04/25 11:14 Resp 22 H 02/04/25 11:14 BP 157/37 02/04/25 11:14 Pulse Ox 100 02/04/25 11:14 O2 Del Method Nasal Cannula 02/04/25 07:38 O2 Flow Rate 1 02/04/25 07:38 02/04/25 02/04/25 02/04/25 06:59 14:59 22:59 Intake Total 1170 / 2680 50 / 50 Balance 1170 / 180 50 / 50 Weight last 48 hrs Weight 59.239 kg Weight 59.6 kg Weight 60.6 kg Weight 60.691 kg Physical Exam 2 Narrative: elderly male, in no distress Getting dialysis No JVD S1-S2 regular rate rhythm per report Lungs with decreased breath sounds Soft nontender per report No pedal edema Data 02/04/25 02:21 02/04/25 02:21 Micro: Microbiology 01/30/25 06:10 Blood Culture - Final Blood NO GROWTH AFTER 5 DAYS 01/30/25 05:45 Blood Culture - Final Blood NO GROWTH AFTER 5 DAYS 01/30/25 10:00 Gram Stain - Final Sputum - Expectorated Sputum Sputum Culture - Final Escherichia coli A&P Assessment and plan 1. ESRD (end stage renal disease): Plan: 1. End-stage renal disease: On TTS schedule 2. Acute respiratory failure in the setting of pneumonia and volume overload, ultrafiltration with HD as above 3. CHF exacerbation, 4. Anemia: Hemoglobin of 8.8 , monitor 5. Community-acquired pneumonia, management per primary team PDMP PDMP Reviewed: Not Reviewed Attestations 2 Medical Necessity Statement*: per medicine Coding Level of Care Code Acute Code for Chg Fwd Diagnoses ESRD (end stage renal disease) N18.6
== END 2025-02-04 11:16 | disposition home or self-care (01) | DRG 286 ==
LOC: ER 08:16 → CSU 11:26
PROVIDERS: Emergency Medicine; Internal Medicine; Admitting Provider Internal Medicine; Emergency Provider Family Medicine; PCP Family Medicine; Visit Provider Student in an Organized Health Care Education/Training Program
PROC: 4A023N7 Measurement of Cardiac Sampling and Pressure, Left Heart, Percutaneous Approach (ICD-10-PCS; principal; 2025-02-03 07:00)
DX: I13.2 Hypertensive heart and chronic kidney disease with heart failure and with stage 5 chronic kidney disease, or end stage renal disease (principal); I50.43 Acute on chronic combined systolic (congestive) and diastolic (congestive) heart failure; N18.6 End stage renal disease; J18.9 Pneumonia, unspecified organism; J96.01 Acute respiratory failure with hypoxia; Z68.1 Body mass index [BMI] 19.9 or less, adult; Z99.2 Dependence on renal dialysis; R79.89 Other specified abnormal findings of blood chemistry; R63.4 Abnormal weight loss; M10.9 Gout, unspecified; E78.5 Hyperlipidemia, unspecified; G62.9 Polyneuropathy, unspecified; D64.9 Anemia, unspecified; I45.10 Unspecified right bundle-branch block; I25.2 Old myocardial infarction; Z86.73 Personal history of transient ischemic attack (TIA), and cerebral infarction without residual deficits; Z86.11 Personal history of tuberculosis
CPT/HCPCS: 36415; 71045; 71275; 80048; 80053; 80202; 83605; 83880; 84100; 84484; 85025; 85378; 87015; 87040; 87070; 87077; 87116; 87186; 87205; 87206; 87637; 87801; 90935; 93005; 93306; 93458; 94760; 96365; 96367; 96375; 99152; 99153; 99285; C1769; C1887; C1894; J1644; J1938; J2250; J2543; J3010; J3373; J3490; J7030; J7040; J9999; P9047; Q0163; Q3014; Q9967

== ENCOUNTER 2025-02-17 09:38 | Inpatient (IN) | payer OTHER, SELFPAY ==
--- OUTSIDE RECORDS SUMMARY | 2025-02-12 19:00 | XMS_ITS ---
Author Name Rizwana French Address [address] [place] [address] Phone [phone] Organization [facility], NA DOCUMENT DISCLAIMER Multiple document versions may exist, please be sure you review the latest version. The information in the [facility] Progress Note Document represents a providers documented clinical note containing certain health and medical information. It may not contain the complete medical history for the patient and should be independently verified. The represented time in the document is Eastern Time PROVIDER ROUNDING NOTE COMPREHENSIVE Patient:Victor Manuel?Amanda,?1940,?84y,?M Dialysis?Location:[place] Attending?Digital Court Reporter:?Lara?Zeyad Service?Date:?02/13/2025 Service?Provider:?Rizwana?Gillian,?DISPATCHER [employer]HICLE I?met?face?to?face?with?the?patient?today. OVERVIEW The?patient?presented?with?ESRD?on?dialysis Primary?cause?of?renal?failure:?Hypertensive?chronic?kidney? disease?with?stage?1?through?stage?4?chronic?kidney?dis ease,?or?unspecified?chronic?kidney?disease Comments:?VSS,?seen?on?HD?machine,?reports?doing?okay?today. Medications?and?labs?reviewed. LAST?HOSPITALIZATION Admission?Date?01/30/25 DIALYSIS?PRESCRIPTION ??IHD?3x?Week?Start?date:?02/08/25 ??Dialyzer:?180NRe?Optiflux ??BFR:?550 ??DFR:?Autoflow?2 ??Potassium:?2.0 ??Sodium:?138 ??EDW:?60 ??Duration:?3:00 ??Calcium:?2.5 ??Bicarb:?32 ??Rx?updated?on:?02/08/2025 TREATMENT?ASSESSMENT Blood?pressure?controlled.?No?changes?indicated.? BP?Stand?Pre ??02/13/2025:?110/48 ??02/10/2025:?164/68 ??02/08/2025:?115/51 BP?Sit?Pre ??02/13/2025:?118/55 ??02/10/2025:?179/64 ??02/08/2025:?120/53 BP?Stand?Post ??02/13/2025:?107/63 ??02/10/2025:?115/52 ??02/08/2025:?133/53 BP?Sit?Post ??02/13/2025:?130/95 ??02/10/2025:?133/55 ??02/08/2025:?136/56 Tx?Duration ??02/13/2025:?3:07 ??02/10/2025:?3:20 ??02/08/2025:?3:02 Missed?Treatments 0?-?last?30?days 0?-?last?60?days FLUID?ASSESSMENT Comments:?Stable. Fluid?status?acceptable.?Interdialytic?weight?gain?acceptable.?No ?changes?indicated.? EDW?(kg) ??02/13/2025:?60.0 ??02/10/2025:?60.0 ??02/08/2025:?59.0 Weight?Pre?(kg) ??02/13/2025:?62.5 ??02/10/2025:?64.1 ??02/08/2025:?64.2 Weight?Post?(kg) ??02/13/2025:?60.6 ??02/10/2025:?61.3 ??02/08/2025:?62.9 PWV?(kg) ??02/13/2025:?0.6 ??02/10/2025:?1.3 ??02/08/2025:?3.9 UF?Rate?(mL/kg/hr) ??02/13/2025:?10.1 ??02/10/2025:?13.7 ??02/08/2025:?6.8 ADEQUACY?ASSESSMENT Adequacy?target?met.?Prescription?compliance?acceptable.?No?changes?indicated.? spKt/V,?URR ??01/18/2025:?1.81,?79.0 ??12/21/2024:?1.66,?77.0 ??11/18/2024:?1.57,?75.0 ACCESS?ASSESSMENT ??Access?Type:?AVGraft ??Access?SubType:?Unknown ??Access?Status:?Active?(In?Use)?-?01/29/2022 ??Access?Location:?Left?Upper?Arm ??Created:?08/20/2020 Flow ??01/09/2025:?973 ??11/25/2024:?775 ??11/04/2024:?>2000 Vascular?access?reviewed.?Current?access?is?permanent?and?functioning?well. ANEMIA?ASSESSMENT Comments:?On?IV?iron?and?JANIE?protocol. HGB ??02/08/2025:?9.4 ??02/06/2025:?9.7 ??01/25/2025:?10.1 ?? Ferritin ??11/18/2024:?1431.0 ??10/19/2024:?1286.0 ??09/21/2024:?1411.0 Mircera,?IVP?(mcg) ??02/06/2025:?60 ??01/23/2025:?60 ??01/09/2025:?60 Iron?Sucrose?(Venofer)?(mg) ??12/19/2024:?50 ??12/05/2024:?50 ??11/28/2024:?50 BMM?ASSESSMENT Comments:?PTH?low Ca?and?phos?stab PTH,?Intact ??11/18/2024:?80.0 ??08/17/2024:?117.0 ?? Calcium,?Phosphorus ??01/18/2025:?9.0,?4.9 ??12/21/2024:?8.9,?5.3 ??11/18/2024:?9.0,?3.7 NUTRITION?ASSESSMENT Comments:?Ed?to?increase?protein?in?diet. Potassium?controlled.?Albumin?below?goal.?Referred?to?dietitian. Potassium,?Albumin ??01/18/2025:?4.7,?3.6 ??12/21/2024:?5.2,?3.7 ??11/18/2024:?5.3,?3.5 ?? eNPCR ??01/18/2025:?0.85 ??12/21/2024:?0.99 ??10/19/2024:?0.74 PHYSICAL?EXAM Exam?Performed.?Vital?Signs?Reviewed.?Lungs?-?Clear.?CV&#160 ;-?Blood?pressure?noted.?EXT?-?1+?edema. DIAGNOSIS Chief?Complaint:?N18.6?End?stage?renal?disease Patient?is?stable.?Patient?discussed?with?nursing. Patient?data?updated?02/13/2025?at?4:47?PM Signed?By:?Gillian,?Rizwana,?DISPATCHER [employer]??on?02/13/2025?4:49:40?PM END OF DOCUMENT
[2025-02-17] VITALS (11 sets, daily range): BP systolic 157–181; BP diastolic 54–91; PULSE 69–84; RESP 17–24; TEMP 36.8–36.9; O2SAT 91–97; BMI 17.6
--- OUTSIDE RECORDS SUMMARY | 2025-02-17 09:43 | XMS_ITS | Encounter Summary ---
Author Organization [facility] [employer], [facility] Address [address] [place] [address] Phone Care Team Providers Care Survey Questionnaire Designer Name Role Phone Unavailable Primary Care Provider Unavailabl e Encounter Details Date Type Department Care Team (Late st Contact Info) Description 02/15/2025 Orders Only [facility] [employer], [facility] [address] [place] [address] Lara Jeffers MD [address] [place] [address] Social History Tobacco Use Types [...] Procedure Name Priority Date/Time Associated Diagnosis Comments HD KINETICS Routine 02/15/2025 POST CHEMISTRY Routine 02/15/2025 TRACE ELEMENTS Routine 02/15/2025 HEMATOLOGY Routine 02/15/2025 CHEMISTRY Routine 02/15/2025 CHEMISTRY Routine 02/15/2025 documented in this encounter Results * [facility] (02/15/2025) PTH 54 16 - 80 pg/mL [facility] 02/15/2025 02/16/2025 11: 26 AM CDT Narrative [facility] - 02/16/2025 Unless otherwise specified, test(s) performed at: [id number], [address] [place], [place] [id number] BAR HOST: Gabriel Herring M.D. For any questions, please call customer service at FREQUENCY:MONTHLY Resulting Agency Comment Specimen source: Plasma us Lara Jeffers MD LAB BLOOD ORDERABLES Final Re sult Performing Organization Address [facility] de Phone Number [facility] See order comments or contact performing lab Unknown, [place] * (ABNORMAL) HD KINETICS (02/15/2025) % Urea Reduction 81(H) 65 - 80 % [facility] 02/15/2025 02/16/2025 10: 27 AM CDT Narrative Resulting Agency Comment Specimen source: Plasma us Lara Jeffers MD LAB BLOOD ORDERABLES Final Re sult Performing Organization Address [facility] de Phone Number [facility] See order comments or contact performing lab Unknown, [place] * POST CHEMISTRY (02/15/2025) BUN Post Dialysis 6 6 - 19 mg/dL [facility] 02/15/2025 02/16/2025 10: 27 AM CDT Narrative [facility] - 02/16/2025 Unless otherwise specified, test(s) performed at: [id number], [address] [place], [place] [id number] BAR HOST: Gabriel Herring M.D. For any questions, please call customer service at FREQUENCY:MONTHLY Resulting Agency Comment Specimen source: Plasma us Lara Jeffers MD LAB BLOOD ORDERABLES Final Re sult Performing Organization Address [facility] de Phone Number [facility] See order comments or contact performing lab Unknown, [place] * (ABNORMAL) [facility] (02/15/2025) BUN 32(H) 6 - 19 mg/dL [facility] Creatinine 5.70(H) 0.60 - 1.30 mg/dL [facility] BUN/Creatinine Ratio 5.6(L) 10.0 - 20.0 [facility] Sodium 139 136 - 145 mEq/L [facility] Potassium 4.4 3.5 - 5.1 mEq/L [facility] Chloride 98 96 - 108 mEq/L [facility] Bicarbonate (CO2) 26 22 - 29 mEq/L [facility] Calcium 8.8 8.4 - 10.2 mg/dL [facility] Corrected Calcium 9.2 8.4 - 10.2 mg/dL [facility] Comment: Corrected Calcium is not equivalent to measured Ionized Calcium. Phosphorus 4.1 2.6 - 4.5 mg/dL [facility] Calcium Phosphorus Product 36 0 - 54 [facility] Calcium Phosporus Product, Cor 38 0 - 54 [facility] Alkaline Phosphatase 88 40 - 129 U/L [facility] Total Protein 6.5 6.0 - 8.5 g/dL [facility] Albumin 3.5 3.5 - 5.2 g/dL [facility] Globulin, Total 3.0 2.0 - 4.0 g/dL [facility] A/G Ratio 1.2 1.0 - 2.0 [facility] Magnesium 2.3 1.6 - 2.6 mg/dL [facility] Iron 42(L) 45 - 160 mcg/dL [facility] UIBC 138(L) 155 - 355 mcg/dL [facility] TIBC 180(L) 185 - 515 mcg/dL [facility] Iron Saturation (TSat) 23 20 - 55 % [facility] Ferritin 1,436(H) 22 - 322 ng/mL [facility] Comment: Verified by repeat analysis. 02/15/2025 02/16/2025 10: 50 AM CDT Narrative [facility] - 02/16/2025 Unless otherwise specified, test(s) performed at: [id number], [address] [place] [address] BAR HOST: Gabriel Herring M.D. For any questions, please call customer service at FREQUENCY:MONTHLY Resulting Agency Comment Specimen source: Serum us Lara Jeffers MD LAB BLOOD ORDERABLES Edited R esult - Final [facility] See order comments or contact performing lab Unknown, [place] * TRACE ELEMENTS (02/15/2025) Aluminum 5 0 - 10 mcg/L [facility] Comment: This test was developed and its performance characteristics determined by [id number]. It has not been cleared or approved by the FDA. The laboratory is regulated under CLIA as qualified to perform high complexity testing. This test is used for clinical purposes. It should not be regarded as investigational or for research. 02/15/2025 02/16/2025 9:1 2 AM CDT Narrative [facility] - 02/16/2025 Unless otherwise specified, test(s) performed at: [id number], [address] [place] [address] BAR HOST: Gabriel Herring M.D. For any questions, please call customer service at FREQUENCY:MONTHLY Resulting Agency Comment Specimen source: Serum Lara Jeffers MD LAB BLOOD ORDERABLES Final Re sult [facility] See order comments or contact performing lab Unknown, [place] * (ABNORMAL) HEMATOLOGY (02/15/2025) Neutrophils 68.6 40.0 - 75.0 % [facility] Lymphocytes Relative 16.4(L) 19.0 - 48.0 % [facility] Monocytes 10.0 3.0 - 10.0 % [facility] Eosinophils Relative 3.1 0.0 - 7.0 % [facility] Basophils Relative 0.8 0.0 - 1.5 % [facility] RAMONA 1.2 0.0 - 4.0 % [facility] WBC 9.16 4.80 - 10.80 1000/mcL [facility] RBC 3.18(L) 4.70 - 6.10 mill/mcL [facility] Hematocrit 30.3(L) 42.0 - 52.0 % [facility] MCV 95 80 - 100 fl [facility] MCH 30.4 27.0 - 31.0 pg [facility] MCHC 32.0 30.0 - 36.0 g/dL [facility] RDW 16.1(H) 11.5 - 14.5 % [facility] Hemoglobin 9.7(L) 14.0 - 18.0 g/dL [facility] Hemoglobin x 3 29.1(L) 42.0 - 54.0 % [facility] Platelets 279 130 - 400 1000/mcL [facility] 02/15/2025 02/16/2025 10: 05 AM CDT Narrative [facility] - 02/16/2025 Unless otherwise specified, test(s) performed at: [id number], [address] [place] [address] BAR HOST: Gabriel Herring M.D. For any questions, please call customer service at FREQUENCY:MONTHLY Resulting Agency Comment Specimen source: Blood us Lara Jeffers MD LAB BLOOD ORDERABLES Final Re sult [facility] [employer] See order comments or contact performing lab Unknown, [place] documented in this encounter Visit Diagnoses Not on filedocumented in this encounter
--- OUTSIDE RECORDS SUMMARY | 2025-02-17 09:43 | XMS_ITS | Encounter Summary ---
Author Organization [employer], [facility] Address [address] [facility] [address] [place] [address] Phone Care Team Providers Care Dry Cell Tester Name Role Phone Unavailable Primary Care Provider Unavailabl e Encounter Details Date Type Department Care Team (Late st Contact Info) Description 02/13/2025 Treatment [facility], [facility] [address] [place] [address] Rizwana French NP [address] [facility] [address] [place] [address] End stage renal disease; Dependence on renal dialysis Social History Tobacco Use Types Packs/Day Years Used Date Smoking Tobacco: Never Assessed Sex and Gender Information Value Date Recorded Sex Assigned at Not on file Legal Sex Male 10:37 AM EDT Gender Identity Not on file Sexual Orientation Not on file documented as of this encounter Miscellaneous Notes * Dialysis Note - Rizwana French NP - 02/13/2025 12:00 AM CDT Patient: Fermin Patel, 1940, 84y, M Dialysis Location: [facility] Attending Screen Room Operator: Lara Jeffers Service Date: 02/13/2025 Service Provider: Rizwana French NP I met face to face with the patient today. OVERVIEW The patient presented with ESRD on dialysis Primary cause of renal failure: Hypertensive chronic kidney disease with stage 1 through stage 4 chronic kidney disease, or unspecified chronic kidney disease Comments: VSS, seen on HD machine, reports doing okay today. Medications and labs reviewed. LAST HOSPITALIZATION Admission Date 01/30/25 DIALYSIS PRESCRIPTION IHD 3x Week Start date: 02/08/25 Dialyzer: 180NRe Optiflux BFR: 550 DFR: Autoflow 2 Potassium: 2.0 Sodium: 138 EDW: 60 Duration: 3:00 Calcium: 2.5 Bicarb: 32 Rx updated on: 02/08/2025 TREATMENT ASSESSMENT Blood pressure controlled. No changes indicated. BP Stand Pre 02/13/2025: 110/48 02/10/2025: 164/68 02/08/2025: 115/51 BP Sit Pre 02/13/2025: 118/55 02/10/2025: 179/64 02/08/2025: 120/53 BP Stand Post 02/13/2025: 107/63 02/10/2025: 115/52 02/08/2025: 133/53 BP Sit Post 02/13/2025: 130/95 02/10/2025: 133/55 02/08/2025: 136/56 Tx Duration 02/13/2025: 3:07 02/10/2025: 3:20 02/08/2025: 3:02 Missed Treatments 0 - last 30 days 0 - last 60 days FLUID ASSESSMENT Comments: Stable. Fluid status acceptable. Interdialytic weight gain acceptable. No changes indicated. EDW (kg) 02/13/2025: 60.0 02/10/2025: 60.0 02/08/2025: 59.0 Weight Pre (kg) 02/13/2025: 62.5 02/10/2025: 64.1 02/08/2025: 64.2 Weight Post (kg) 02/13/2025: 60.6 02/10/2025: 61.3 02/08/2025: 62.9 PWV (kg) 02/13/2025: 0.6 02/10/2025: 1.3 02/08/2025: 3.9 UF Rate (mL/kg/hr) 02/13/2025: 10.1 02/10/2025: 13.7 02/08/2025: 6.8 ADEQUACY ASSESSMENT Adequacy target met. Prescription compliance acceptable. No changes indicated. spKt/V, URR 01/18/2025: 1.81, 79.0 12/21/2024: 1.66, 77.0 11/18/2024: 1.57, 75.0 ACCESS ASSESSMENT Access Type: AVGraft Access SubType: Unknown Access Status: Active (In Use) - 01/29/2022 Access Location: Left Upper Arm Created: 08/20/2020 Flow 01/09/2025: 973 11/25/2024: 775 11/04/2024: ?1999 Vascular access reviewed. Current access is permanent and functioning well. ANEMIA ASSESSMENT Comments: On IV iron and JANIE protocol. HGB 02/08/2025: 9.4 02/06/2025: 9.7 01/25/2025: 10.1 Ferritin 11/18/2024: 1431.0 10/19/2024: 1286.0 09/21/2024: 1411.0 Mircera, IVP (mcg) 02/06/2025: 60 01/23/2025: 60 01/09/2025: 60 Iron Sucrose (Venofer) (mg) 12/19/2024: 50 12/05/2024: 50 11/28/2024: 50 BMM ASSESSMENT Comments: PTH low Ca and phos stab PTH, Intact 11/18/2024: 80.0 08/17/2024: 117.0 Calcium, Phosphorus 01/18/2025: 9.0, 4.9 12/21/2024: 8.9, 5.3 11/18/2024: 9.0, 3.7 NUTRITION ASSESSMENT Comments: Ed to increase protein in diet. Potassium controlled. Albumin below goal. Referred to dietitian. Potassium, Albumin 01/18/2025: 4.7, 3.6 12/21/2024: 5.2, 3.7 11/18/2024: 5.3, 3.5 eNPCR 01/18/2025: 0.85 12/21/2024: 0.99 10/19/2024: 0.74 PHYSICAL EXAM Exam Performed. Vital Signs Reviewed. Lungs - Clear. CV - Blood pressure noted. EXT - 1+ edema. DIAGNOSIS Chief Complaint: N18.6 End stage renal disease Patient is stable. Patient discussed with nursing. Patient data updated 02/13/2025 at 4:47 PM Signed By: Rizwana French NP on 02/13/2025 4:49:40 PM documented in this encounter Plan of Treatment Not on file documented as of this encounter Visit Diagnoses Diagnosis End stage renal disease Dependence on renal dialysis documented in this encounter
--- OUTSIDE RECORDS SUMMARY | 2025-02-17 09:43 | XMS_ITS | Clinical Summary ---
Author Organization [facility] Address [address] [place] [address] Phone Care Team Providers Care Dials Inspector Name Role Phone Jesu Schmitz MD Primary Care Provider [phone] Allergies Active Allergy Reactions Criticality Noted Date [...] Tobacco: Former Cigarettes Tobacco Cessation:Counseling Given: No Feeling Safe Answer Date Recorded Are you in a relationship wi th someone who hurts you emotionally and/or physically? No 02/07/2023 Food Insecurity Answer Date Recorded Social/Environmental Concerns No concerns Transportation Needs Answer Date Record ed Social/Environmental Concerns No concerns Housing Stability Answer Date Recorded Social/Environmental Concerns No concerns Utility Needs Answer Date Recorded Social/Environmental Concerns No concerns Sex and Gender Information Value Date Recorded [...] 07/12/2013 Insurance MEDICARE PART A HOSP[facility] ONLY [facility] [employer] [place] [address] [place] [address] [employer] Advance Directives For more information, please contact: [phone] * Full Code (Latest Code Status on File) Date Activated Date Inactivated Comments 02/07/2023 1:45 AM 02/10/2023 2:02 PM Care Teams Dials Inspector Relationship Specialty Start Date End Date Jesu Schmitz MD [address] [place] [address] PCP - General Internal Medicine 02/07/23
--- OUTSIDE RECORDS SUMMARY | 2025-02-17 09:43 | XMS_ITS ---
Author Name [facility], [facility] Address [address] [place] [address] Phone [phone] Organization [facility] e, NA DOCUMENT DISCLAIMER Multiple document versions may exist, please be sure you review the latest version. The information in the [facility] Continuity of Care Document represents a summary of certain health and medical information. It may not contain the complete medical history for the patient and should be independently verified. The represented time in the document is Eastern Time. PROBLEMS Problem Code Status Onset Date Chills (without fever) R68.83 Active mber 2024 Hypokalemia E87.6 Active May 20 Fracture of [...] 2022 Chest pain, unspecified R07.9 Active Febr uary 2022 Nausea R11.0 Active July 28 Pain, unspecified R52 Active July 152022 Hypotension of hemodialysis I95.3 Active July 28, 2022 Acute respiratory failure with hypoxia J96.01 Ac tive May 14, 2022 Encounter for immunization Z23 Active O ctober 2021 Mixed hyperlipidemia E78.2 Active Septemb er 2021 Insomnia, unspecified G47.00 Active January 29, 2022 Pain in unspecified joint M25.50 Active [place] 2021 Unspecified protein-calorie malnutrition E46 Active January 29, 2022 Diarrhea, unspecified R19.7 Active January 29, 2022 Other disorders of phosphorus metabolism E83.39 Active January 29, 2022 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 classified elsewhere G99.0 Active January 29, 2022 Atherosclerotic heart diseas e of [place] coronary artery without angina pectoris I25.10 Active [...] Dosage Route Start Date End Date Stat us Clonidine HCl PRN-may repeat x1 systolic > 180 or dystolic > 100 0.1 mg Oral March 25, 2024 March 24, 2025 Active Midodrine HCl (Proamatine) PRN-may repeat x1 hypotension 5 mg Oral December 19, 2024 December 18, 2025 Active Mircera During Dialysis, Every 2 weeks 60 mcg Intravenous - push January 09, 2025 January 08, 2026 Active Home Medications Medication Instructions Dosage Route Start Date End Date Stat us albuterol sulfate 90 mcg/actuation Inhale using inhaler every four hours while awake as needed 2 puff INHALATION December 30, 2023 Active allopurinol 100 mg Take by mouth once a day 1 tablet ORAL June 16, 2022 Active aspirin 81 mg Take by mouth once a day 1 tablet ORAL February 04, 2025 Active atorvastatin 40 mg Take by mouth [...] 1 tablet ORAL September 19, 2024 Active guaifenesin 600 mg Take by mouth every twelve hours as needed 1 tablet ORAL February 04, 2025 Active hydralazine 25 mg Take by mouth every night at bedtime 1 tablet ORAL February 04, 2025 Active lisinopril 20 mg Take by mouth [...] Sign Value Date / Time Blood Pressure-sitting 139/62 mmHg February 15, 2025 05:50 AM Blood Pressure-standing 136/56 mmHg [facility] 2024 05:50 AM Heart Rate 68 beats per minute February 05:50 AM Respiratory Rate 12 breaths per minute February 15, 2025 05:50 AM Temperature 97.8 deg. F February 15 05:50 AM Weight Vital Sign Value Date / Time Estimated Dry Weight 59.7 kg February 11:59 PM Pre-Dialysis 61.60 kg February 15 05:50 AM Post-Dialysis 59.70 kg February 15 05:50 AM Other Other Value Date / Time Height 183 cm December 06, 2024 12 :00 AM Body Mass Index 17.62 kg/m2 January 30, 2025 04:58 PM [facility] RESULTS Hematology Result Type Result Value Relevant Referen ce Range Interpretation Date Folate, Serum 14.4 ng/mL No Reference Ran ge Provided - August 17, 2024 WBC (No Diff) 9.01 1000/mcL 4.80 [...] - 322 ng/mL High October 19 25 Platelets 207 1000/mcL 130 - 400 1000/mcL - November 18, 2024 Ferritin 1431 ng/mL 22 - 322 ng/mL High November 18 025 TIBC (Calc) 165 mcg/dL 185 - 515 mcg/dL Low November Transferrin Sat. (Calc) 20 % 20 - 55 % - November 18, 2024 WBC (No Diff) 8.66 1000/mcL 4.80 - 10.80 1000/mcL - November 18, 2024 UIBC/TIBC 132 mcg/dL 155 - 355 mcg/dL Low November 18, 2024 Neutrophils 68.7 % 40.0 - 75.0 % - November 18 025 Hemoglobin x 3 28.5 % 42.0 - 54.0 % Low November Hemoglobin x 3 30.3 % 42.0 - 54.0 % Low November Retic HGB 30.1 pg 25.4 - 31.8 pg - December 07 025 Hemoglobin x 3 32.1 % 42.0 - 54.0 % Low November MCH 29.3 pg 27.0 - 31.0 pg - December 21 025 Platelets 222 1000/mcL 130 - 400 1000/mcL [...] 19.0 - 48.0 % Low December 21 Neutrophils 69.4 % 40.0 - 75.0 % - December 21 Hemoglobin x 3 29.1 % 42.0 - 54.0 % Low December Hemoglobin x 3 28.5 % 42.0 - 54.0 % Low December Neutrophils 68.9 % 40.0 - 75.0 % - January 18, 2025 Lymphocytes 14.9 % 19.0 - 48.0 % Low January 18, 2025 RAMONA 2.5 % 0.0 - 4.0 % - January 18 WBC (No Diff) 8.12 1000/mcL 4.80 - 10.80 1000/mcL - January 18, 2025 RBC 3.24 mill/mcL 4.70 - 6.10 mill/mcL Low January 18, 2025 HCT 31.3 % 42.0 - 52.0 % Low January 18, 2025 MCH 30.2 pg 27.0 - 31.0 pg - January 18, 2025 MCHC 31.2 g/dL 30.0 - 36.0 g/dL - January Monocytes 9.8 % 3.0 - 10.0 % - January 18 025 Eosinophil 3.1 % 0.0 - 7.0 % [...] UIBC/TIBC 137 mcg/dL 155 - 355 mcg/dL January Iron 36 mcg/dL 45 - 160 mcg/dL Low January Retic HGB 30.5 pg 25.4 - 31.8 pg - January 25, 2025 Hemoglobin x 3 30.3 % 42.0 - 54.0 % January 25, 2025 HGB 10.1 g/dL 14.0 - 18.0 g/dL January 122024 HGB 9.7 g/dL 14.0 - 18.0 g/dL January 132024 Hemoglobin x 3 29.1 % 42.0 - 54.0 % February 06, 2025 HGB 9.4 g/dL 14.0 - 18.0 g/dL January 132024 Hemoglobin x 3 28.2 % 42.0 - 54.0 % February 08, 2025 RAMONA 1.2 % 0.0 - 4.0 % - February 15, 2025 WBC (No Diff) 9.16 1000/mcL 4.80 - 10.80 1000/mcL - February 15, 2025 Eosinophil 3.1 % 0.0 - 7.0 % - February 15, 2025 Basophils 0.8 % 0.0 - 1.5 % - February 15, 2025 Lymphocytes 16.4 % 19.0 - 48.0 % Low February 15, 2025 Monocytes 10.0 % 3.0 - 10.0 % - February Neutrophils 68.6 % 40.0 - 75.0 % - February 15, 2025 RBC 3.18 mill/mcL 4.70 - 6.10 mill/mcL Low February 15, 2025 TIBC (Calc) 180 mcg/dL 185 - 515 mcg/dL Low 2024 Transferrin Sat. (Calc) 23 % 20 - 55 % - February 15, 2025 Iron 42 mcg/dL 45 - 160 mcg/dL Low February 15, 2025 UIBC/TIBC 138 mcg/dL 155 - 355 mcg/dL Low Febembe r 2024 Hemoglobin x 3 29.1 % 42.0 - 54.0 % Low er 2024 Platelets 279 1000/mcL 130 - 400 1000/mcL - Feb ember 2024 RDW 16.1 % 11.5 - 14.5 % High February HGB 9.7 g/dL 14.0 - 18.0 g/dL Low 2024 MCH 30.4 pg 27.0 - 31.0 pg - February 15, 2025 MCHC 32.0 g/dL 30.0 - 36.0 g/dL - 2024 HCT 30.3 % 42.0 - 52.0 % Low February Ferritin 1436 ng/mL 22 - 322 ng/mL High February 15, 2025 Metabolic/Renal Result Type Result Value Relevant Referen ce Range Interpretation Date BUN 61 mg/dL 6 - 19 mg/dL High December 21 BUN/Creat Ratio 9.6 10.0 - 20.0 Low December 21, 2024 Creatinine, Serum 6.35 mg/dL 0.60 - 1.30 mg/dL High December 21, 2024 Sodium 136 mEq/L 136 - 145 mEq/L - December 21, 2024 Chloride 99 mEq/L 96 - 108 mEq/L - December 21 Potassium 5.2 mEq/L 3.5 - 5.1 mEq/L High December 21, 2024 Bicarbonate 22 mEq/L 22 - 29 mEq/L - December 21 BUN, Post 14 mg/dL 6 - 19 mg/dL - December 21 URR, Calc 77 % 65 - 80 % - December 21, 2024 URR, Calc 79 % 65 - 80 % - January 18 BUN, Post 10 mg/dL 6 - 19 mg/dL - January 18, 025 Sodium 134 mEq/L 136 - 145 mEq/L [...] - 108 mEq/L Low January 18, 2025 Sodium 139 mEq/L 136 - 145 mEq/L - February 15, 2025 Potassium 4.4 mEq/L 3.5 - 5.1 mEq/L - February 15, 2025 BUN/Creat Ratio 5.6 10.0 - 20.0 Low 2024 Chloride 98 mEq/L 96 - 108 mEq/L - February 15, 2025 Bicarbonate 26 mEq/L 22 - 29 mEq/L - February 15, 2025 BUN 32 mg/dL 6 - 19 mg/dL High February Creatinine, Serum 5.70 mg/dL 0.60 - 1.30 mg/dL High February 15, 2025 URR, Calc 81 % 65 - 80 % High February 15, 2025 BUN, Post 6 mg/dL 6 - 19 mg/dL - February HD Adequacy Result Type Result Value Relevant Referen ce Range Interpretation Date Krt/V 0.00 No Reference Ran ge Provided - September 14, 2024 Krt/V 0.00 No Reference Ran ge Provided - October 19, 2024 wstdKt/V, residual 0.0 No Reference Range [...] Ran ge Provided - January 18, 2025 wstdKt/V without residual 2.6 No Reference Range Provided - February 15, 2025 spKt/V Gotch 1.93 No Reference Ran ge Provided - February 15, 2025 wstdKt/V 2.6 No Reference Ran ge Provided - February 15, 2025 Krt/V 0.00 No Reference Ran ge Provided - February 15, 2025 eKt/V ([place]all) 1.60 No Reference Range Provided - February 15, 2025 wstdKt/V, residual 0.0 No Reference Range Provided - February 15, 2025 spKt/V (Daugirdas II) 1.92 No Reference Range Provided - February 15, 2025 Bone/Mineral Result Type Result Value Relevant Referen ce Range Interpretation Date Magnesium 1.9 mg/dL 1.6 - 2.6 mg/dL - May 18, 2024 Vitamin D 25 Hydroxy 77.9 ng/mL 30.0 - 100.0 ng/mL - August 17, 2024 Magnesium 2.4 mg/dL 1.6 - 2.6 mg/dL - August 17, 2024 PTH-Intact, Plasma 80 pg/mL 16 - 80 pg/mL - Nov Magnesium 2.0 mg/dL 1.6 - 2.6 mg/dL - November 18, 2024 Calcium, Total 8.9 mg/dL 8.4 - 10.2 mg/dL - December 21, 2024 Ca x P Product 47 0 - 54 - December 21 025 Phosphorus 5.3 mg/dL 2.6 - 4.5 [...] 0 - 54 - January 18, 2025 Corrected Ca x P Product 38 0 - 54 - February 15 Magnesium 2.3 mg/dL 1.6 - 2.6 mg/dL - February 15, 2025 Ca x P Product 36 0 - 54 - February 15, 2025 Alkaline Phosphatase 88 U/L 40 - 129 U/L - pt2024 Calcium, Total 8.8 mg/dL 8.4 - 10.2 mg/dL - Feb Phosphorus 4.1 mg/dL 2.6 - 4.5 mg/dL - February 15, 2025 PTH-Intact, Plasma 54 pg/mL 16 - 80 pg/mL - Feb Liver/Nutrition Result Type Result Value Relevant Referen ce Range Interpretation Date Albumin (BCG) 3.7 g/dL 3.5 - 5.2 [...] - 5.2 g/dL - January 18, 2025 Globulin (Calc) 3.0 g/dL 2.0 - 4.0 g/dL - Septe mber 2024 Albumin (BCG) 3.5 g/dL 3.5 - 5.2 g/dL - Septemb er 2024 A/G Ratio 1.2 1.0 - 2.0 - February 15, 2025 Total Protein 6.5 g/dL 6.0 - 8.5 g/dL - Febemb er 2024 eNPCR 0.64 No Reference Ran ge Provided - February 15, 2025 Trace Elements Result Type Result Value Relevant Reference Range Interpre tation Date Aluminum < 5 mcg/L 0 - 10 mcg/L - August 17 Aluminum 5 mcg/L 0 - 10 mcg/L - February Infectious Diseases Result Type Result Value Relevant Referen ce Range Interpretation Date Hep B Surface Ag (HBsAg) Negative No Reference Range Provided - November 21, 2024 Hep B Surface Ab (anti-HBs) 174 mIU/mL No Reference Range Provided - November 23, 2024 DIALYSIS PRESCRIPTION Conventional Hemodialysis Data Element Value Order Date/Time February 17, 2025 Frequency 3X Week Treatment Days TueThuSat Dialyzer 180NRe Optiflux Treatment Time (Total Minutes) 180 min Blood Flow Rate (mL/min) 550 mL/min Dialysate Flow Rate Autoflow 2.0 Estimated Dry Weight 59.7 kg Dialysate Concentrate 2.0 K, 2.5 Ca, 1.0 Mg, 100 Dextrose (G2251) Sodium (mEq/L) 138 mEq/L Bicarb Machine Setting (mEq/L) 32 mEq/L Dialysis Access Hemodialysis-AV Shaista t-Unknown, Left Upper Arm, Brachial Artery to [...] Int ramuscular Completed HEPLISAV-B, series 2 of 4 March 26, 2022 20.0 mcg Intr amuscular Completed TRANSPLANT WAITLIST STATUS No Information on Transplant Waitlist Status ADVANCE DIRECTIVES Directive Description Ordered By Effective Date Resuscitation status Do Not Resuscitate (DNR) Lara Jeffers Jun 19, 2024 DIALYSIS TREATMENTS Conventional Hemodialysis Date Pre-Treatment Vitals Post-Treatment Yaritza ls Duration (hr) BFR (mL/min) Dialysate Dialyzer Dialysis Access Meds Admin Augus 2024 Weight 64.10 kg Weight 61.30 kg 03:20:00 550 2.0 K, 2.5 Ca, 1.0 Mg, 100 Dextrose (G2251) 180nre Optifl ux Blood Pressure-sitting 179/64 mmHg Blood Pressure-sit ting 133/55 mmHg Blood Pressure-standing 164/68 mmHg Blood Pressure-st anding 115/52 mmHg Heart Rate 75 beats per minute Heart Rate 65 beats per minute Respiratory Rate 18 breaths per minute Respiratory Rate 18 breaths per minute Temperature 98.1 deg. F Temperature 97.7 deg. F February 13, 2025 Weight 62.50 kg Weight 60.60 kg 03:07:00 520 2.0 K, 2.5 Ca, 1.0 Mg, 100 Dextrose (G2251) 180nre Optiflux Hemodialysis-AV Graft-Unknown, Left Upper Arm, Brachial Artery to Brachial Vein Access Placed on August 20, 2020 - Blood Pressure-sitting 118/55 mmHg Blood Pressure-sit ting 130/95 mmHg Blood Pressure-standing 110/48 mmHg Blood Pressure-st anding 107/63 mmHg Heart Rate 65 beats per minute Heart Rate 51 beats per minute Respiratory Rate 18 breaths per minute Respiratory Rate 18 breaths per minute Temperature 98.1 deg. F Temperature 97.7 deg. F February 15, 2025 Weight 61.60 kg Weight 59.70 kg 02:59:00 550 2.0 K, 2.5 Ca, 1.0 Mg, 100 Dextrose (G2251) 180nre Optiflux Hemodialysis-AV Graft-Unknown, Left Upper Arm, Brachial Artery to Brachial Vein Access Placed on August 20, 2020 - Blood Pressure-sitting 113/66 mmHg Blood Pressure-sit ting 139/62 mmHg Blood Pressure-standing 111/60 mmHg Blood Pressure-st anding 136/56 mmHg Heart Rate 74 beats per minute Heart Rate 68 beats per minute Respiratory Rate 16 breaths per minute Respiratory Rate 12 breaths per minute Temperature 98.1 deg. F Temperature 97.8 deg. F
--- OUTSIDE RECORDS SUMMARY | 2025-02-17 09:43 | XMS_ITS | Clinical Summary ---
Author Organization [facility], [facility] Address [address] [address] Phone Care Team Providers Care Enrollment Services Vice President Name Role Phone Unavailable Primary Care Provider Unavailabl e Medications lisinopril 10 MG tablet Take 1 tablet (10 mg total) by mouth every night 30 tablet 11 08/17/2023 Active loratadine (Claritin) 10 MG tablet Take 1 tablet (10 mg total) by mouth 1 (one) time each day for 14 days 14 tablet 06/01/2024 Active Encounters Date Type Department Care Team Description 02/15/2025 Orders Only [facility], [facility] [address] [place] [address] Lara Jeffers MD 02/13/2025 Treatment [facility], [facility] [address] [address] Rizwana French NP End stage renal disease; Dependence on renal dialysis 02/08/2025 Orders Only [place] [facility], [facility] [address] [address] Lara Jeffers MD 02/06/2025 Orders Only [place] [facility], [facility] [address] [facility] [address] [place] [address] Lara Jeffers MD 02/06/2025 Treatment [facility], [facility] [address] [address] Rizwana French NP End stage renal disease; Dependence on renal dialysis 01/25/2025 Orders Only [facility], [facility] [address] [place] [id number] Lara Jeffers MD 01/23/[address] [place], [place] [address]rology [facility], [facility] [address] [place] [address] Rizwana French NP End stage renal disease; Dependence on renal dialysis 01/18/2025 Treatment [facility], [facility] [address] [place] [address] Colleen Kendall NP End stage renal disease; Dependence on renal dialysis 01/18/2025 [facility], [facility] [address] [place] [address] Lara Jeffers MD 01/04/2025 [facility], [facility] [address] [place] [address] Lara Jeffers MD 01/02/[address] [place] [address], [facility] [address] [place] [address] Lara Jeffers MD End stage renal disease; Dependence on renal dialysis 12/28/2024 [facility], [facility] [address] [place] [address] Lara Jeffers MD 12/26/[address] [place] [address], [facility] [address] [place] [address] Rizwana French NP End stage renal disease; Dependence on renal dialysis 12/21/2024 Orders Only [facility], [facility] [address] [place] [address] Lara Jeffers MD 12/19/[address] [place] [address] Nephrology [facility], [facility] [address] [place] [address] Colleen Kendall NP End stage renal disease; Dependence on renal dialysis 12/07/2024 Orders Only [facility], [facility] [address] [place] [address] Lara Jeffers MD 12/05/[address] [place] [address], [facility] [address] [place] [phone] Rizwana French NP End stage renal disease; Dependence on renal dialysis 11/30/2024 Orders Only [facility], [facility] [address] [place] [address] Lara Jeffers MD 11/30/[address] [place] [address], [facility] [address] [place] [address] Lara Jeffers MD End stage renal disease; Dependence on renal dialysis 11/23/2024 [facility], [facility] [address] [place] [address] Lara Jeffers MD 11/21/2024 Orders Only [facility], [facility] [address] [place] [address] Lara Jeffers MD 11/21/[address] [place], [place] [address]rology [facility], [facility] [address] [place] [address] Rizwana French NP End stage renal disease; Dependence on renal dialysis 11/18/2024 Orders Only [facility], [facility] [address] [place] [address] Lara Jeffers MD from Last 3 Months Social History Tobacco [...] Procedure Name Priority Date/Time Associated Diagnosis Comments CHEMISTRY Routine 02/15/2025 HD KINETICS Routine 02/15/2025 POST CHEMISTRY Routine 02/15/2025 CHEMISTRY Routine 02/15/2025 TRACE ELEMENTS Routine 02/15/2025 HEMATOLOGY Routine 02/15/2025 HEMATOLOGY Routine 02/08/2025 HEMATOLOGY Routine 02/06/2025 HEMATOLOGY Routine 01/25/2025 [facility] RESULTS [...] 11/18/2024 CHEMISTRY Routine 11/18/2024 HEMATOLOGY Routine 11/18/2024 from Last 3 Months Results * (ABNORMAL) HD KINETICS (02/15/2025) Only the most recent of4 resultswithin the time period is included. % Urea Reduction 81(H) 65 - 80 % [facility] 02/15/2025 02/16/2025 10: 27 AM CDT Narrative Resulting Agency Comment Specimen source: Plasma us Lara Jeffers MD LAB BLOOD ORDERABLES Final Re sult [facility] See order comments or contact performing lab Unknown, [place] * POST CHEMISTRY (02/15/2025) Only the most recent of4 resultswithin the time period is included. BUN Post Dialysis 6 6 - 19 mg/dL [facility] 02/15/2025 02/16/2025 10: 27 AM CDT Narrative [facility] - 02/16/2025 Unless otherwise specified, test(s) performed at: [facility], [address] [place] [id number] TRIP RIDER: Gabriel Herring, M.D. For any questions, please call customer service at FREQUENCY:MONTHLY Resulting Agency Comment Specimen source: Plasma Lara Jeffers MD LAB BLOOD ORDERABLES Final Re sult Performing Organization Address [facility] de Phone Number [employer] [facility] See order comments or contact performing lab Unknown, [place] * TRACE ELEMENTS (02/15/2025) Pathologist [facility] Aluminum 5 0 - 10 mcg/L [facility] Comment: This test was developed and its performance characteristics determined by [facility]. It has not been cleared or approved by the FDA. The laboratory is regulated under CLIA as qualified to perform high complexity testing. This test is used for clinical purposes. It should not be regarded as investigational or for research. 02/15/2025 02/16/2025 9:1 2 AM CDT Narrative [facility] - 02/16/2025 Unless otherwise specified, test(s) performed at: [facility], [address] [place] [address] TRIP RIDER: Gabriel Herring M.D. For any questions, please call customer service at FREQUENCY:MONTHLY Resulting Agency Comment Specimen source: Serum Lara Jeffers MD LAB BLOOD ORDERABLES Final Re [facility] Performing Organization Address [facility] de Phone Number [facility] [facility] See order comments or contact performing lab Unknown, [place] * (ABNORMAL) HEMATOLOGY (02/15/2025) Only the most recent of12 resultswithin the time period is included. Pathologist [facility] Neutrophils 68.6 40.0 - 75.0 % [facility] [...] 02/16/2025 Unless otherwise specified, test(s) performed at: [facility], [address] [place], [place] [id number] TRIP RIDER: Gabriel Herring M.D. For any questions, please call customer service at FREQUENCY:MONTHLY Resulting Agency Comment Specimen source: Blood us Lara Jeffers MD LAB BLOOD ORDERABLES Final Re sult Performing Organization Address [facility] de Phone Number [employer] See order comments or contact performing lab Unknown, [place] * [facility] Chemistry (02/15/2025) Only the most recent of6 resultswithin the time period is included. PTH 54 16 - 80 pg/mL [facility] 02/15/2025 02/16/2025 11: 26 AM CDT Narrative [facility] - 02/16/2025 Unless otherwise specified, test(s) performed at: [facility], [address] [place] [id number] TRIP RIDER: Gabriel Herring M.D. For any questions, please call customer service at FREQUENCY:MONTHLY Resulting Agency Comment Specimen source: Plasma us Lara Jeffers MD LAB BLOOD ORDERABLES Final Re sult Performing Organization Address [facility]/ZIP Co de Phone Number [employer] See order comments or contact performing lab Unknown, [place] * [facility] Results (01/18/2025) Only the most recent of3 resultswithin the time period is included. eKt/V (Tattersall) 1.52 [facility] PCR 55.92 [facility] nPCR_HD 0.93 [facility] eNPCR 0.85 [facility] eKt/V Gotch 1.49 [facility] eKdrt/V 1.49 [facility] spKt/V (Daugirdas II) 1.81 [facility] spKt/V Gotch 1.81 [facility] [place] WSTDKT/V 2.6 [facility] 01/18/2025 01/18/2025 [facility] Ordering Provider LAB BLOOD ORDERABLES Final Result [facility] Contact Performing lab Unknown, [place] * IMMUNO CHEMISTRY (11/23/2024) Only the most recent of3 resultswithin the time period is included. Pathologist [facility] Hepatitis B Surface Ab 174 mIU/mL [facility] Comment: The anti-HBs (Hepatitis B surface antibody) is greater than or equal to 10 mIU/mL and implies immunity. The patient has either had an antibody response to HBV vaccination, received a transfusion, or has recovered from HBV infection. For post-vaccination antibody testing guidelines for the general public, refer to MMWR June 05, 2005/Vol.54 (No. 16); 1-23, and for healthcare workers, refer to MMWR June 02, 2013/Vol.62 (No. 10); 1-18. Reference Range: <10 mIU/mL Non-Immune >=10 mIU/mL Immune The magnitude of the measured result above 10 mIU/mL is not indicative of the total amount of antibody present. 11/23/2024 11/24/2024 9:5 2 AM CDT Narrative [facility] - 11/24/2024 Unless otherwise specified, test(s) performed at: [facility], [address] [place], [place] [id number] TRIP RIDER: Gabriel Herring M.D. For any questions, please call customer service at FREQUENCY:OTHER Resulting Agency Comment Specimen source: Serum us Lara Jeffers MD LAB BLOOD ORDERABLES Final Re sult [facility] See order comments or contact performing lab Unknown, [place] from Last 3 Months Insurance Regions 1,2,3 (VACCN) [facility] Regions 4 ([id number])
--- OUTSIDE RECORDS SUMMARY | 2025-02-17 09:43 | XMS_ITS | Patient Health Record ---
Author Organization [facility] Address [address] [place] [address] Care Team Providers Care Plumber Maintenance Name Role Phone Humera Montanez MD Primary Care Provider Unav ailable Fifi Fernanda Unavailable [phone] Griselda GOLDSMITHArvin Unavailable Unavailable Allergies Allergen (clinical drug ingredient) [...] Risk Notes Problem End stage renal disease (90489998) End stage renal disease (N18.6) Active confirmed Problem Dependence on renal dialysis (416748286) Dependence on renal dialysis (Z99.2) Active confirmed Plan Of Treatment No Information Insurance Providers Payer Name Payer Address Payer Phone Subscriber Number Group Number Insured Name Patient Relationship to Insured Coverage Start Date Coverage End Date [employer] [address] [place] [phone] [id number] Fermin Patel Self - patient is the insured Medical (General) History Medical History History ICD Code tuberculosis blood/plasma transfusion back pain hypertension stroke chronic kidney disease Surgical History Surgery Date(Month/Year) none Hospitalization History Reason Date(Month/Year) Janessa in [place] bleed 02/06/2023
--- NOTE | 2025-02-17 09:44 | CTR_ITS ---
PROCEDURE INFORMATION: Exam: CT Abdomen And Pelvis Without Contrast Exam date and time: 02/17/2025 09:59 AM Age: 84 years old Clinical indication: Abdominal pain TECHNIQUE: Imaging protocol: Computed tomography of the abdomen and pelvis without contrast. Radiation optimization: All CT scans at this facility use at least one of these dose optimization techniques: automated exposure control; mA and/or kV adjustment per patient size (includes targeted exams where dose is matched to clinical indication); or iterative reconstruction. COMPARISON: CT abdomen pelvis w con* [id number] 09/18/2024 02:47 PM RADIATION DOSE METRICS: Total DLP (mGy-cm): 360.16 FINDINGS: Lungs: Bibasilar airspace disease. Pleural spaces: Moderate bilateral pleural effusions. Scattered pleural plaques within both lung bases. Coronary arteries: Coronary artery calcifications. Liver: Tiny punctate hepatic calcifications may be vascular in nature. Gallbladder and biliary ducts: Normal. No calcified stones. No ductal dilation. Pancreas: 1.9 cm cyst in the pancreatic body, previously 1.3 cm. Spleen: A few punctate splenic calcifications. Adrenal glands: Normal. No mass. Kidneys and ureters: Bilateral renal atrophy. Bilateral renal cysts. Bilateral high density renal cysts with the largest over the left inferior pole, measuring 2 cm. Stomach and bowel: Diverticulosis without acute diverticulitis. Appendix: No evidence of appendicitis. Intraperitoneal space: Unremarkable. No free air. No significant fluid collection. Vasculature: Extensive atherosclerotic vascular disease. Anterior pelvic soft tissues bypass graft. Lymph nodes: Unremarkable. No enlarged lymph nodes. Urinary bladder: Unremarkable as visualized. Reproductive: Unremarkable as visualized. Bones/joints: Marked degenerative changes of the spine multilevel disc space narrowing and facet arthropathy. Mild retrolisthesis of L1 on L2 and L2 on L3. Soft tissues: Left inguinal hernia with sigmoid colon within it. CT/CT abdomen pelvis wo con [id number] IMPRESSION: 1. Moderate bilateral pleural effusions with bibasilar airspace disease. Scattered pleural plaques. 2. Stable bilateral renal cysts. 3. Diverticulosis without acute diverticulitis. 4. Extensive atherosclerotic vascular disease with bifemoral bypass graft. 5. Left inguinal hernia with sigmoid colon within it. No obstruction. 6. Marked degenerative changes of the spine. 7. Pancreatic cyst, increased in size. Neoplasm not excluded. COMMENTS: Consistent with the [employer]'s Incidental Findings Committee white paper (J Am Donna Radiol 2018): Any incidental renal lesion less than 1 cm or classified as too small to characterize, or any incidental cystic renal lesion characterized as simple-appearing, is likely benign. No follow-up imaging is recommended for these lesions per consensus recommendations based on imaging criteria.
--- NOTE | 2025-02-17 09:45 | ECG_ITS ---
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
--- NOTE | 2025-02-17 09:53 | W.ED.ABDPA2 ---
HPI - Abdominal Pain General: Chief Complaint: Abdominal Pain Stated Complaint: abd pain Time Seen by Provider: 02/17/25 09:42 History of Present Illness: 84-year-old man with a history of end-stage renal disease on dialysis, coronary artery disease, congestive heart failure, hyperlipidemia, hypertension who presents to the emergency room with abdominal pain from dialysis. He did complete dialysis. He said he developed some fairly severe epigastric and left upper quadrant pain. This is improved significantly. He says he had a similar episode recently. Episodes have been off and on for several weeks now. No chest pain. No nausea or vomiting. No fever. Related Data Home Medications ?Medication ?Instructions ?Recorded ?Confirmed allopurinol 100 mg tablet 100 mg PO QPM 10/08/20 02/17/25 calcium acetate 667 mg tablet 667 mg PO BID 10/08/20 02/17/25 carvedilol 25 mg tablet 25 mg PO BID 12/03/23 02/17/25 nifedipine 60 mg tablet,extended 60 mg PO QAM 12/03/23 02/17/25 release 24 hr atorvastatin 40 mg tablet 40 mg PO QPM 08/25/24 02/17/25 trazodone 100 mg tablet 50 mg PO BEDTIME 01/22/25 02/17/25 guaifenesin 600 mg tablet, 600 mg PO BID PRN Congestion 01/30/25 02/17/25 extended release 12 hr (Mucinex) hydralazine 25 mg tablet 25 mg PO BEDTIME PRN Sleep 01/30/25 02/17/25 Previous Rx's ?Medication ?Instructions ?Recorded aspirin 81 mg tablet,delayed 81 mg PO DAILY 30 days #30 tabs 02/04/25 release Allergies Allergy/AdvReac Type Severity Reaction Status Date / Time No Known Allergies Allergy Verified 08/23/24 13:06 Review of Systems Narrative: Constitutional symptoms: Negative except as documented in HPI. Skin symptoms: Negative except as documented in HPI. Eye symptoms: Negative except as documented in HPI. ENMT symptoms: Negative except as documented in HPI. Respiratory symptoms: Negative except as documented in HPI. Cardiovascular symptoms: Negative except as documented in HPI. Gastrointestinal symptoms: Negative except as documented in HPI. Genitourinary symptoms: Negative except as documented in HPI. Musculoskeletal symptoms: Negative except as documented in HPI. Neurologic symptoms: Negative except as documented in HPI. Psychiatric symptoms: Negative except as documented in HPI. Endocrine symptoms: Negative except as documented in HPI. PFSH ED PFSH: Medical History (Updated 02/17/25 @ 13:08 by Indy Alvarez MD) Hypertension Tuberculosis Acute exacerbation of CHF (congestive heart failure) NSTEMI (non-ST elevated myocardial infarction) Pleural effusion Elevated troponin ESRD (end stage renal disease) Hyperlipidemia Abnormal stress test COVID-19 Chronic gout Vitamin D deficiency Vitamin B12 deficiency (dietary) anemia History of TIA (transient ischemic attack) Surgical History S/P hemodialysis catheter insertion History of left knee surgery History of right knee surgery Family History Denies family history of Anesthesia complication Bleeding disorder Social History Smoking and tobacco/nicotine status: former use of tobacco/nicotine Alcohol intake: never Substance/Drug Use: never Physical Exam Narrative: EXAM NARRATIVE: General: Alert, no acute distress. Skin: Warm, dry. Head: Normocephalic, atraumatic. Neck: Supple, trachea midline. Eye: Extraocular movements are intact. Ears, nose, mouth and throat: mucosa moist. Cardiovascular: Regular, Normal peripheral perfusion. Respiratory: Lungs are clear to auscultation, respirations are non-labored, breath sounds are equal, Symmetrical chest wall expansion. Gastrointestinal: Soft, some upper abdominal tenderness epigastric and left upper quadrant, Non distended Musculoskeletal: Normal ROM, no deformity. Neurological: Alert and oriented, No focal neurological deficit observed. Psychiatric: Cooperative, appropriate mood & affect. Course Vital Signs: Vital signs: Vital Signs Temperature 98.3 F 02/17/25 09:42 Pulse Rate 77 02/17/25 11:52 Respiratory Rate 22 H 02/17/25 11:52 Blood Pressure 157/61 02/17/25 11:52 Pulse Oximetry 93 02/17/25 11:52 Oxygen Delivery Me thod Room Air 02/17/25 09:42 MDM - Abdominal Pain Medical Decision Making Medical decision making: Differential diagnosis including but not limited to and based on the above HPI, review of systems and physical exam: In this patient with epigastric and left upper quadrant pain differential would include cholelithiasis or cholecystitis. Hepatitis. Diverticulitis. Constipation. UTI. colitis. small bowel obstruction. crohn's flare. pancreatitis. gastritis. peptic ulcer. also concern for acute cardiac event. Orders placed to evaluate differential diagnosis based on the above differential, HPI and physical exam Lab Review: Laboratory results were reviewed and interpreted by myself the emergency room physician. Leukocytosis with a white count of 18,000 with a mild left shift at 80%. Hemoglobin is 11. BUN and creatinine are 8 and 2.2 which would be expected in this dialysis patient who just got dialysis. Potassium is 3.3. I reviewed the patient's medical record. 84-year-old man with a history of end-stage renal disease on dialysis, coronary artery disease, congestive heart failure, hyperlipidemia, hypertension Reexamination: Around 12:10 PM I went and talked to the patient again after I got results of CT scan back. There was no acute abdominal findings. Patient at this time tells me that pain although reproducible in his left upper quadrant is worse when he coughs and has been bringing things up. This point went back and looked at the CT and it does mention bibasilar airspace disease and at this point I feel like he likely has pneumonia. Do not necessarily think he is septic and since he is on dialysis giving minimal fluids. Blood cultures and lactic acid were ordered at the time of identified infection. Patient currently borderline on his oxygen running about 89-[address] of the abdomen pelvis shows no acute abdominal pathology but there is effusions and airspace disease in the lower lungs. A CT of the lungs was ordered to further evaluate the lungs. This was reviewed and interpreted by myself the emergency room physician. I also reviewed the radiology report. CT of the lungs without contrast: Moderate bilateral pleural effusions with bibasilar airspace disease and right middle lobe airspace disease which is likely a pneumonia given the patient's presentation and symptoms. This was reviewed and interpreted by myself the emergency room physician. I also reviewed the radiology report. Consultation: I spoke with Dr. Alcala who is on-call for the hospital service who agrees to admission. Assessment and plan: Pneumonia End-stage renal disease on dialysis - patient on dialysis so 150 cc fluid only given. Borderline for sepsis. Significant leukocytosis. But no tachycardia and no hypotension. Lactate is only 2. -Broad-spectrum antibiotics were administered. Given this patient is on dialysis and has had pneumonia in the past I am giving broad-spectrum antibiotics also with the possibility that he could be an early sepsis. As above septic measures were ordered at the point infection was identified -Sepsis quality measures. -Lactic acid with a reflex was ordered. -Blood cultures were ordered. ?I reevaluated the patient's volume status after sepsis fluids were given. -I discussed the patient with the hospitalist on-call who is admitting the patient. - Discussed findings and plan with patient. Answered any questions. - All laboratory values were reviewed and interpreted personally by myself, the ER physician - All imaging was reviewed and interpreted personally by myself, the ER physician. - Evaluation and treatment of this problem were appropriate in the emergency setting Lab Data 02/17/25 09:53 02/17/25 09:53 Labs/Radiology: Radiology Impressions Abdomen/Pelvis CT 02/17/25 09:44 IMPRESSION: 1. Moderate bilateral pleural effusions with bibasilar airspace disease. Scattered pleural plaques. 2. Stable bilateral renal cysts. 3. Diverticulosis without acute diverticulitis. 4. Extensive atherosclerotic vascular disease with bifemoral bypass graft. 5. Left inguinal hernia with sigmoid colon within it. No obstruction. 6. Marked degenerative changes of the spine. 7. Pancreatic cyst, increased in size. Neoplasm not excluded. COMMENTS: Consistent with the [employer]'s Incidental Findings Committee white paper (J Am Donna Radiol 2018): Any incidental renal lesion less than 1 cm or classified as too small to characterize, or any incidental cystic renal lesion characterized as simple-appearing, is likely benign. No follow-up imaging is recommended for these lesions per consensus recommendations based on imaging criteria. Chest CT 02/17/25 12:20 IMPRESSION: 1. Extensive atherosclerotic vascular disease and coronary artery calcifications. 2. Moderate bilateral pleural effusions with bibasilar airspace disease and right middle lobe airspace disease. Pneumonia is not excluded. Laboratory Results WBC 18.85 10^3/uL (3.29-11.43) H 02/17/25 09:53 RBC 3.83 10^6/uL (3.85-5.65) L 02/17/25 09:53 Hgb 11.10 g/dL (11.27-16.99) L 02/17/25 09:53 Hct 35.8 % (37-53) L 02/17/25 09:53 MCV 93.5 fl (82-101) 02/17/25 09:53 MCH 29.0 pg (27-33) 02/17/25 09:53 MCHC 31.0 g/dL (30-55) 02/17/25 09:53 RDW 15.8 % (12.1-15.1) H 02/17/25 09:53 Plt Count 237 10^3/cmm (157-399) 02/17/25 09:53 MPV 10.5 fL (7.4-10.4) H 02/17/25 09:53 Neut % (Auto) 82.9 % 02/17/25 09:53 Lymph % (Auto) 6.0 % 02/17/25 09:53 [place] % (Auto) 9.8 % 02/17/25 09:53 Eos % (Auto) 0.6 % 02/17/25 09:53 Baso % (Auto) 0.3 % 02/17/25 09:53 Neut # (Auto) 15.62 10^3/uL (1.8-7.7) H 02/17/25 09:53 Lymph # (Auto) 1.1 10^3/uL (0.8-4.8) 02/17/25 09:53 [place] # (Auto) 1.8 10^3/uL (0.2-0.9) H 02/17/25 09:53 Eos # (Auto) 0.1 10^3/uL (0.0-0.8) 02/17/25 09:53 Baso # (Auto) 0.1 10^3/uL (0.0-0.1) 02/17/25 09:53 Nucleated RBC % (auto) 0 % 02/17/25 09:53 Nucleated RBCs # 0.0 /100WBC 02/17/25 09:53 Sodium 133 mmol/L (136-145) L 02/17/25 09:53 Potassium 3.3 mmol/L (3.5-5.1) L 02/17/25 09:53 Chloride 92 mmol/L (98-107) L 02/17/25 09:53 Carbon Dioxide 27 mmol/L (22-29) 02/17/25 09:53 Anion Gap 17.3 (5-19) 02/17/25 09:53 BUN 8 mg/dL (8-23) 02/17/25 09:53 Creatinine 2.2 mg/dL (0.7-1.2) H 02/17/25 09:53 GFR Calculation Not Reportable 02/17/25 09:53 Glucose 94 mg/dL (65-115) 02/17/25 09:53 Calculated Osmolality 274 mOsm/kg (285-295) L 02/17/25 09:53 Lactic Acid 2.0 mmol/L (0.5-2.2) 02/17/25 09:53 Calcium 9.6 mg/dL (8.5-10.5) 02/17/25 09:53 Total Bilirubin 0.7 mg/dL (0.15-1.2) 02/17/25 09:53 AST 25 U/L (0-40) 02/17/25 09:53 ALT 11 U/L (0-41) 02/17/25 09:53 Alkaline Phosphatase 121 U/L (40-130) 02/17/25 09:53 Total Protein 8.2 g/dL (6.6-8.7) 02/17/25 09:53 Albumin 3.9 g/dL (3.5-5.2) 02/17/25 09:53 Globulin 4.3 g/dL (1.3-4.6) 02/17/25 09:53 Lipase 43 U/L (13-60) 02/17/25 09:53 All radiology interpretation(s) finalized by discharge Discharge Plan Discharge Patient Disposition: Admitted As Inpatient Clinical Impression: Pneumonia, End stage renal disease on dialysis, Pleuritic chest pain, Leukocytosis Condition: Stable Coding Level of Care 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
[2025-02-17 09:59] LABS: Hematocrit 35.8 % (37-53); Hemoglobin 11.10 g/dL (11.27-16.99); Mean Corpuscular HGB Conc 31.0 g/dL (30-55); Mean Corpuscular Hemoglobin 29.0 pg (27-33); Mean Corpuscular Volume 93.5 fl (82-101); Nucleated Red Blood Cells % 0 %; Platelet Count 237 10^3/cmm (157-399); Red Blood Count 3.83 10^6/uL (3.85-5.65); White Blood Count 18.85 10^3/uL (3.29-11.43)
[2025-02-17 10:23] LABS: Alanine Aminotransferase 11 U/L (0-41); Albumin Level 3.9 g/dL (3.5-5.2); Alkaline Phosphatase 121 U/L (40-130); Anion Gap 17.3 (5-19); Aspartate Amino Transferase 25 U/L (0-40); Blood Urea Nitrogen 8 mg/dL (8-23); Calcium 9.6 mg/dL (8.5-10.5); Carbon Dioxide 27 mmol/L (22-29); Chloride 92 mmol/L (98-107); Globulin 4.3 g/dL (1.3-4.6); Glucose 94 mg/dL (65-115); Osmolality Calculated 274 mOsm/kg (285-295); Potassium 3.3 mmol/L (3.5-5.1); Sodium 133 mmol/L (136-145); Total Protein 8.2 g/dL (6.6-8.7)
[2025-02-17 10:24] LABS: Lipase 43 U/L (13-60)
--- NOTE | 2025-02-17 12:20 | CTR_ITS ---
PROCEDURE INFORMATION: Exam: CT Chest Without Contrast; Diagnostic Exam date and time: 02/17/2025 12:32 PM Age: 84 years old Clinical indication: Pain; Chest pressure; Additional info: Pleuritic chest pain, leukocytosis TECHNIQUE: Imaging protocol: Diagnostic computed tomography of the chest without contrast. Radiation optimization: All CT scans at this facility use at least one of these dose optimization techniques: automated exposure control; mA and/or kV adjustment per patient size (includes targeted exams where dose is matched to clinical indication); or iterative reconstruction. COMPARISON: CT angio chest PE protcl [id number] 01/30/2025 08:32 AM and previous RADIATION DOSE METRICS: Total DLP (mGy-cm): 275.47 FINDINGS: Lungs: Right middle lobe and bibasilar airspace disease. Scattered calcifications within the lung parenchyma which could be secondary to chronic changes following infection versus other. These are most predominant in the right upper lobe. Scattered pleural plaques. Pleural spaces: Moderate bilateral pleural effusions with bibasilar airspace disease. Scattered pleural plaques, predominantly in the lung bases. Heart: Cardiomegaly. Coronary arteries: Coronary artery calcifications. Lymph nodes: Prominent right paratracheal lymph node with short axis dimension measuring 1.1 cm (series 4, image 22. Calcified hilar lymph nodes. Vasculature: Atherosclerotic vascular disease. Coronary artery calcifications. Bones/joints: Degenerative changes of the spine. Soft tissues: Unremarkable. CT/CT chest wo con [id number] IMPRESSION: 1. Extensive atherosclerotic vascular disease and coronary artery calcifications. 2. Moderate bilateral pleural effusions with bibasilar airspace disease and right middle lobe airspace disease. Pneumonia is not excluded.
[2025-02-17 12:58] LABS: Lactic Sepsis W/Reflex 2.0 mmol/L (0.5-2.2)
[2025-02-17] MEDS: linezolid premix 600 MG/300 ML PREMIX 300 MG IV (13:13)
--- NOTE | 2025-02-17 14:43 | PM.HP ---
Providers/Chief Complaint Primary Care Provider: Humera Mayen MD Chief Complaint: abd pain History of Present Illness Fermin Patel is a 84 year old male with past medical history of end-stage renal disease on hemodialysis, tuberculosis, recent admission for community-acquired pneumonia, aortic valve stenosis, congestive heart failure With last known EF of 45% with grade 1 diastolic dysfunction, moderate aortic valve stenosis presents to the ER today from dialysis center because of pain under his left rib along with cough and some expectoration. Patient states otherwise he is feeling well without any difficulty in breathing. Does not complain of any fever confusion, weakness, tiredness. In the ER he was found to have leukocytosis up to 18,000. CT chest was done which was concerning for right lower lobe pneumonia along with chronic changes. He states he is not really sure why he is being admitted but is agreeable for workup. Denies any choking episode or any episode of coughing recently. Review of Systems General: Reports: 10 or more systems reviewed and unremarkable except in HPI and below Const: Denies: fever(s), chills, body aches, change in appetite, change in weight, malaise, night sweats, diaphoresis, change in sleep pattern, daytime sleepiness or snoring Eyes: Denies: change in vision, blurry vision, photophobia, eye discomfort or eye discharge ENMT: Denies: throat pain, enlarged tonsils, hoarseness, mouth pain, oral sores, dry mouth, tinnitus, nasal congestion or post nasal drip Card: Denies: chest pain, palpitations, irregular heart rhythm, edema, swelling of feet/ankles, lightheadedness, syncope, pre-syncope, dyspnea on exertion, orthopnea, leg pain with exertion or acrocyanosis Resp: Denies: dyspnea, productive cough, non-productive cough, wheezing, stridor, pain on inspiration, change in phlegm color, hemoptysis or chest congestion GI: Denies: abdominal pain, nausea, vomiting, hematemesis, coffee ground emesis, dysphagia, heartburn, diarrhea, constipation, bloating, GI cramping, change in bowel habits, pain on defecation, hematochezia or melena : Denies: flank pain, difficulty urinating, dysuria, urinary frequency, urinary urgency, urinary hesitancy, urinary dribbling, difficulty starting urination, change in urine stream, nocturia or hematuria Musc: Denies: neck pain, back pain, extremity pain, joint pain, joint swelling, joint redness, joint stiffness or limited range of motion Neuro: Denies: headache(s), numbness in extremities, weakness in extremities, sensory changes, lack of coordination, difficulty walking, frequent falls, dizziness, vertigo, confusion, Slurred speech present, difficulty communicating thoughts or seizure-like activity Psych: Denies: anxiety, depression, mood swings, panic attacks, hopelessness or irritability Endo: Denies: polyuria, polydipsia, tired all the time, cold intolerance, excessive sweating, flushing or heat intolerance Jose/Lymph: Denies: easy bruising or easy bleeding All/Imm: Denies: tongue swelling, facial swelling or acute wheezing Medications/Allergies Home Medications ?Medication ?Instructions ?Recorded ?Confirmed ?Last Taken ?Type allopurinol 100 mg tablet 100 mg PO QPM 10/08/20 02/17/25 02/16/25 History calcium acetate 667 mg tablet 667 mg PO BID 10/08/20 02/17/25 02/16/25 History carvedilol 25 mg tablet 25 mg PO BID 12/03/23 02/17/25 02/16/25 History nifedipine 60 mg tablet,extended 60 mg PO QAM 12/03/23 02/17/25 02/17/25 History release 24 hr atorvastatin 40 mg tablet 40 mg PO QPM 08/25/24 02/17/25 02/16/25 History trazodone 100 mg tablet 50 mg PO BEDTIME 01/22/25 02/17/25 02/16/25 History guaifenesin 600 mg tablet, 600 mg PO BID PRN Congestion 01/30/25 02/17/25 Unknown History extended release 12 hr (Mucinex) hydralazine 25 mg tablet 25 mg PO BEDTIME PRN Sleep 01/30/25 02/17/25 01/29/25 History aspirin 81 mg tablet,delayed 81 mg PO DAILY 30 days #30 tabs 02/04/25 02/17/25 02/16/25 Rx release Allergies Allergy/AdvReac Type Severity Reaction Status Date / Time No Known Allergies Allergy Verified 08/23/24 13:06 PFSH Acute PFSH: Medical History (Updated 02/17/25 @ 13:08 by Indy Alvarez MD) Hypertension Tuberculosis Acute exacerbation of CHF (congestive heart failure) NSTEMI (non-ST elevated myocardial infarction) Pleural effusion Elevated troponin ESRD (end stage renal disease) Hyperlipidemia Abnormal stress test COVID-19 Chronic gout Vitamin D deficiency Vitamin B12 deficiency (dietary) anemia History of TIA (transient ischemic attack) Surgical History S/P hemodialysis catheter insertion History of left knee surgery History of right knee surgery Family History Denies family history of Anesthesia complication Bleeding disorder Social History Smoking and tobacco/nicotine status: former use of tobacco/nicotine Alcohol intake: never Substance/Drug Use: never Vitals/I&O/Wt Last Vital Signs Temp 98.3 F 02/17/25 09:42 Pulse 73 02/17/25 14:22 Resp 17 02/17/25 14:22 BP 160/68 02/17/25 14:22 Pulse Ox 93 02/17/25 14:22 O2 Del Method Room Air 02/17/25 14:22 Physical Exam Narrative: General: No acute distress, AO x3 HEENT: PERRLA, pupils bilaterally equal and reactive Chest: Normal vesicular breath sounds, bilateral coarse crackles right more than left, occasional rhonchi, equal good air entry bilaterally CVS: S1-S2 regular, no murmurs, no tachycardia, no gallops, no rubs Abdomen: Soft, nontender, no organomegaly, bowel sounds present Neuro: No focal deficits, no facial deformity, AO x3, power 5/5 in all limbs Data 02/17/25 09:53 02/17/25 09:53 Micro: Microbiology 02/17/25 13:01 Blood Culture - Preliminary Blood SPECIMEN COLLECTED 02/17/25 09:53 Blood Culture - Preliminary Blood SPECIMEN COLLECTED A&P Assessment and plan 1. Pneumonia: Mild in nature. Curb 65?2. Check blood culture, sputum culture. Start on empiric IV vancomycin and Zosyn as per creatinine clearance. Check MRSA swab. If negative will discontinue vancomycin. Patient was recently in hospital at that time 3 sputum samples were given for tuberculosis. So far the samples have been negative. Check QuantiFERON. Active tuberculosis so far less likely. Oxygen supplementation keeping saturation over 90%. Pulmicort twice daily, DuoNeb every 6 hours. 2. End stage renal disease on dialysis: Will consult nephrology. Continue home dialysis cycle. 3. Congestive heart failure: Currently euvolemic. Watch for fluid overload. Patient already on Coreg. Will try to add Entresto given blood pressures for guideline directed medical therapy. 4. Aortic valve stenosis: 5. Hypertension: Goal blood pressure less than 140/90 mmhg. Continue with home dose of nifedipine, Coreg. Adding Entresto as above. Uptitrate as per goal blood pressure. Plan: Full code Renal dialysis diet Heparin 5000 every 12 hourly for DVT prophylaxis Protonix for PUD prophylaxis PDMP PDMP Reviewed: Not Reviewed Attestations Medical Necessity Statement*: Admission for less than 2 midnights for management of pneumonia, uncontrolled hypertension in a patient with end-stage renal disease on hemodialysis Diagnoses Pneumonia J18.9 End stage renal disease on dialysis N18.6; Z99.2 Congestive heart failure I50.9 Aortic valve stenosis I35.0 Hypertension I10
[2025-02-17 15:11] LABS: Procalcitonin 0.54 ng/mL (0-0.5)
--- NOTE | 2025-02-17 17:46 | PC.NURSE ---
was instructed by Waste Transportation Technician to call report @[phone], attempted report at this time. states nurse not available and would call back
--- NOTE | 2025-02-17 17:59 | PC.NURSE ---
attempted report @1800, [facility] staff states nurse is giving report on another pt, unable to take report at this time
[2025-02-17] MEDS: pantoprazole 40 mg SDV IVP (20:42)
[2025-02-17] MEDS: heparin 5,000 unit/mL INJ 1 mL 5000 UNIT SUBCUT (20:42)
[2025-02-17 20:48] LABS: Iron 22 ug/dL (59-158); Thyroid Stimulating Hormone 16.39 uIU/mL (0.27-4.20); Total Iron Binding Capacity 161 mcg/dl; Unsaturated Iron Binding 139 ug/dL (112-347)
[2025-02-17 20:49] LABS: Estmated Average Glucose 88; Hemoglobin A1C 4.7 % (4.0-6.0)
[2025-02-17 21:35] LABS: Free T4 Free Thyroxine 0.92 ng/dL (0.82-1.77)
[2025-02-18] MEDS: piperacillin-tazobactam 3.375 GM in sodium chloride 0.9% (plus) 50 ML IV ×2 (00:06→08:46)
[2025-02-18 00:08] VITALS: BP 171/65; PULSE 61; RESP 20; O2SAT 94
[2025-02-18] MEDS: hyDRALAzine 20 mg/mL INJ 1 mL 10 MG IVP (02:04)
[2025-02-18 02:05] VITALS: BP 169/60; PULSE 67; RESP 19; O2SAT 94
[2025-02-18 04:00] VITALS: BP 155/64; PULSE 62; RESP 20; O2SAT 96
[2025-02-18 04:14] LABS: Hematocrit 29.5 % (37-53); Hemoglobin 8.90 g/dL (11.27-16.99); Mean Corpuscular HGB Conc 30.2 g/dL (30-55); Mean Corpuscular Hemoglobin 29.1 pg (27-33); Mean Corpuscular Volume 96.4 fl (82-101); Nucleated Red Blood Cells % 0 %; Platelet Count 191 10^3/cmm (157-399); Red Blood Count 3.06 10^6/uL (3.85-5.65); White Blood Count 8.67 10^3/uL (3.29-11.43)
[2025-02-18 04:45] LABS: Procalcitonin 0.79 ng/mL (0-0.5)
[2025-02-18 04:47] LABS: Cholesterol 95 mg/dL (0-200); HDL Cholesterol 40 mg/dL (60-100); Triglycerides 69 mg/dL (0-150)
[2025-02-18 04:48] LABS: Alanine Aminotransferase 8 U/L (0-41); Albumin Level 3.2 g/dL (3.5-5.2); Alkaline Phosphatase 96 U/L (40-130); Anion Gap 15.5 (5-19); Aspartate Amino Transferase 21 U/L (0-40); Blood Urea Nitrogen 15 mg/dL (8-23); Calcium 8.3 mg/dL (8.5-10.5); Carbon Dioxide 26 mmol/L (22-29); Chloride 99 mmol/L (98-107); Creatinine Clr Calc Pharmacy 12.8944; Globulin 2.8 g/dL (1.3-4.6); Glucose 78 mg/dL (65-115); Magnesium 2.2 mg/dL (1.7-2.3); Osmolality Calculated 284 mOsm/kg (285-295); Potassium 3.5 mmol/L (3.5-5.1); Sodium 137 mmol/L (136-145); Total Protein 6.0 g/dL (6.6-8.7)
[2025-02-18] MEDS: vancomycin 500 MG in sodium chloride 0.9% (plus) 100 ML 200 MG IV (06:38)
[2025-02-18] MEDS: NIFEdipine ER (24 hr) 30 mg Tablet 60 MG PO (06:39)
[2025-02-18] MEDS: heparin 5,000 unit/mL INJ 1 mL 5000 UNIT SUBCUT (06:39)
[2025-02-18 08:00] VITALS: BP 143/62; PULSE 57; PULSE 61; RESP 16; RESP 18; TEMP 37; O2SAT 93; O2SAT 95
--- NOTE | 2025-02-18 11:41 | PM.DCS ---
Discharge Providers Date of Admission: 02/17/25 13:03 Date of Discharge: February 18, 2025 Attending Provider at Admission: Joe Alcala MD Attending Provider at Discharge: Joe Alcala MD Primary Care Provider: Humera Mayen MD Diagnoses at Discharge Discharge Diagnosis 1. Pneumonia: 2. End stage renal disease on dialysis: 3. Congestive heart failure: 4. Aortic valve stenosis: 5. Hypertension secondary to other renal disorders: 6. Aspiration pneumonia: 7. Subclinical hypothyroidism: Reason for Visit Reason for Visit: abd pain Hospital Course Hospital Course Fermin Patel is a 84 year old male with past medical history of end-stage renal disease on hemodialysis, tuberculosis, recent admission for community-acquired pneumonia, aortic valve stenosis, congestive heart failure With last known EF of 45% with grade 1 diastolic dysfunction, moderate aortic valve stenosis presents to the ER today from dialysis center because of pain under his left rib along with cough and some expectoration. Patient states otherwise he is feeling well without any difficulty in breathing. Does not complain of any fever confusion, weakness, tiredness. In the ER he was found to have leukocytosis up to 18,000. CT chest was done which was concerning for right lower lobe pneumonia along with chronic changes. He states he is not really sure why he is being admitted but is agreeable for workup. Denies any choking episode or any episode of coughing recently. Patient was admitted for further evaluation and management of possible community-acquired pneumonia. He remained afebrile on room air. Blood culture sputum culture remained negative. There is concern for aspiration pneumonia. He is been discharged back in stable condition on oral Augmentin and Levaquin advised to follow-up as an outpatient for modified barium swallow. For high blood pressure Entresto has been added to his medication list given recent diagnosis of congestive heart failure. He was also found to have subclinical hypothyroidism for which low-dose levothyroxine has been added to his medication list. Physical Exam Narrative: General: No acute distress, AO x3 HEENT: PERRLA, pupils bilaterally equal and reactive Chest: Normal vesicular breath sounds, bilateral coarse crackles right more than left, occasional rhonchi, equal good air entry bilaterally CVS: S1-S2 regular, no murmurs, no tachycardia, no gallops, no rubs Abdomen: Soft, nontender, no organomegaly, bowel sounds present Neuro: No focal deficits, no facial deformity, AO x3, power 5/5 in all limbs Discharge Data Studies Completed and Pending Completed Studies During Hospitalization Category Date Time Status CT abdomen pelvis wo con [id number] Stat Cat Scan 02/17/25 09:[address] chest wo con [id number] Stat Cat Scan 02/17/25 12:20 Completed Pending at discharge Category Date Time Status Bacterial Antigen Stat Lab 02/17/25 14:43 Ordered Blood Culture Stat Lab 02/17/25 13:01 Results Complete Blood Count w/Auto AM LABS Lab 02/19/25 04:00 Ordered Complete Blood Count w/Auto AM LABS Lab 02/20/25 04:00 Ordered Comprehensive Metabolic Panel AM LABS Lab 02/19/25 04:00 Ordered Comprehensive Metabolic Panel AM LABS Lab 02/20/25 04:00 Ordered Magnesium AM LABS Lab 02/19/25 04:00 Ordered Magnesium AM LABS Lab 02/20/25 04:00 Ordered Phosphorus AM LABS Lab 02/19/25 04:00 Ordered Phosphorus AM LABS Lab 02/20/25 04:00 Ordered Sputum Culture and Gram Stain Stat Lab 02/18/25 01:30 Results Vancomycin Random AM LABS Lab 02/19/25 04:00 Ordered Radiology Impressions Abdomen/Pelvis CT 02/17/25 09:44 IMPRESSION: 1. Moderate bilateral pleural effusions with bibasilar airspace disease. Scattered pleural plaques. 2. Stable bilateral renal cysts. 3. Diverticulosis without acute diverticulitis. 4. Extensive atherosclerotic vascular disease with bifemoral bypass graft. 5. Left inguinal hernia with sigmoid colon within it. No obstruction. 6. Marked degenerative changes of the spine. 7. Pancreatic cyst, increased in size. Neoplasm not excluded. COMMENTS: Consistent with the [employer]'s Incidental Findings Committee white paper (J Am Donna Radiol 2018): Any incidental renal lesion less than 1 cm or classified as too small to characterize, or any incidental cystic renal lesion characterized as simple-appearing, is likely benign. No follow-up imaging is recommended for these lesions per consensus recommendations based on imaging criteria. Chest CT 02/17/25 12:20 IMPRESSION: 1. Extensive atherosclerotic vascular disease and coronary artery calcifications. 2. Moderate bilateral pleural effusions with bibasilar airspace disease and right middle lobe airspace disease. Pneumonia is not excluded. Laboratory Results WBC 8.67 10^3/uL (3.29-11.43) 02/18/25 02:29 RBC 3.06 10^6/uL (3.85-5.65) L 02/18/25 02:29 Hgb 8.90 g/dL (11.27-16.99) L 02/18/25 02:29 Hct 29.5 % (37-53) L 02/18/25 02: MCV 96.4 fl (82-101) 02/18/25 02: MCH 29.1 pg (27-33) 02/18/25 02: MCHC 30.2 g/dL (30-55) 02/18/25 02: RDW 15.7 % (12.1-15.1) H 02/18/25 02:29 Plt Count 191 10^3/cmm (157-399) 02/18/25 02: MPV 10.8 fL (7.4-10.4) H 02/18/25 02: Neut % (Auto) 67.9 % 02/18/25 02:29 Lymph % (Auto) 15.5 % 02/18/25 02:29 [place] % (Auto) 13.8 % 02/18/25 02:29 Eos % (Auto) 2.0 % 02/18/25 02:29 Baso % (Auto) 0.5 % 02/18/25 02: Neut # (Auto) 5.89 10^3/uL (1.8-7.7) 02/18/25 02: Lymph # (Auto) 1.3 10^3/uL (0.8-4.8) 02/18/25 02:29 [place] # (Auto) 1.2 10^3/uL (0.2-0.9) H 02/18/25 02:29 Eos # (Auto) 0.2 10^3/uL (0.0-0.8) 02/18/25 02:29 Baso # (Auto) 0.0 10^3/uL (0.0-0.1) 02/18/25 02:29 Nucleated RBC % (auto) 0 % 02/18/25 02: Nucleated RBCs # 0.0 /100WBC 02/18/25 02: Sodium 137 mmol/L (136-145) 02/18/25 02: Potassium 3.5 mmol/L (3.5-5.1) 02/18/25 02:29 Chloride 99 mmol/L (98-107) 02/18/25 02:29 Carbon Dioxide 26 mmol/L (22-29) 02/18/25 02:29 Anion Gap 15.5 (5-19) 02/18/25 02:29 BUN 15 mg/dL (8-23) 02/18/25 02:29 Creatinine 3.5 mg/dL (0.7-1.2) H 02/18/25 02:29 GFR Calculation Not Reportable 02/18/25 02:29 Glucose 78 mg/dL (65-115) 02/18/25 02:29 Estimat Average Glucose 88 02/17/25 09:53 Hemoglobin A1c 4.7 % (4.0-6.0) 02/17/25 09:53 Calculated Osmolality 284 mOsm/kg (285-295) L 02/18/25 02:29 Lactic Acid 2.0 mmol/L (0.5-2.2) 02/17/25 09:53 Calcium 8.3 mg/dL (8.5-10.5) L 02/18/25 02:29 Phosphorus 3.5 mg/dL (2.5-4.5) 02/18/25 02:29 Magnesium 2.2 mg/dL (1.7-2.3) 02/18/25 02:29 Iron 22 ug/dL (59-158) L 02/17/25 09:53 TIBC 161 mcg/dl 02/17/25 09:53 % Saturation 13.6 % (20-50) L 02/17/25 09:53 Unsat Iron Binding 139 ug/dL (112-347) 02/17/25 09:53 Total Bilirubin 0.4 mg/dL (0.15-1.2) 02/18/25 02:29 AST 21 U/L (0-40) 02/18/25 02:29 ALT 8 U/L (0-41) 02/18/25 02:29 Alkaline Phosphatase 96 U/L (40-130) 02/18/25 02:29 Total Protein 6.0 g/dL (6.6-8.7) L D 02/18/25 02:29 Albumin 3.2 g/dL (3.5-5.2) L 02/18/25 02:29 Globulin 2.8 g/dL (1.3-4.6) 02/18/25 02:29 Triglycerides 69 mg/dL (0-150) 02/18/25 02:29 Cholesterol 95 mg/dL (0-200) 02/18/25 02:29 LDL Cholesterol, Calc 41 mg/dL (50-129) L 02/18/25 02:29 HDL Cholesterol 40 mg/dL (60-100) L 02/18/25 02:29 LDL/HDL Ratio 1.03 RATIO (0.00-3.22) 02/18/25 02:29 Cholesterol/HDL Ratio 2.38 mg/dL (1.0-5.00) 02/18/25 02:29 Lipase 43 U/L (13-60) 02/17/25 09:53 Procalcitonin 0.79 ng/mL (0-0.5) H 02/18/25 02:29 TSH 16.39 uIU/mL (0.27-4.20) H 02/17/25 09:53 Free T4 0.92 ng/dL (0.82-1.77) 02/17/25 09:53 Free T3 1.6 PG/ML (2.0-4.4) L 02/17/25 09:53 Vitals Last Vital Signs Temp 98.6 F 02/18/25 08:00 Pulse 61 02/18/25 08:00 Resp 16 02/18/25 08:00 BP 143/62 02/18/25 08:00 Pulse Ox 95 02/18/25 08:00 O2 Del Method Room Air 02/18/25 08:00 O2 Flow Rate 2 02/18/25 04:00 FiO2 21 02/17/25 20:47 Discharge Plan Discharge Patient Disposition: Home Condition: Stable Prescriptions: New levothyroxine 25 mcg Tablet 25 mcg PO QAM Qty: 30 0RF sacubitril-valsartan [Entresto] 24-26 mg Tablet 1 tab PO BID Qty: 60 0RF levofloxacin 750 mg tablet 750 mg PO Q24H 7 Days Qty: 7 0RF amoxicillin-pot clavulanate 875-125 mg tablet 1 tab PO BID 7 Days Qty: 14 0RF Continued allopurinol 100 mg tablet 100 mg PO QPM calcium acetate 667 mg tablet 667 mg PO BID trazodone 100 mg tablet 50 mg PO BEDTIME carvedilol 25 mg Tablet 25 mg PO BID nifedipine 60 mg Tablet Extended Release 24hr 60 mg PO QAM atorvastatin 40 mg tablet 40 mg PO QPM hydralazine 25 mg Tablet 25 mg PO BEDTIME PRN (Reason: Sleep) guaifenesin [Mucinex] 600 mg Tablet Extended Release 12hr 600 mg PO BID PRN (Reason: Congestion) aspirin 81 mg Tablet,Delayed Release (Dr/Ec) 81 mg PO DAILY 30 Days Qty: 30 0RF Discharge Order = DC NOW: Discharge Order (Routine); Ordered 02/18/25 Ordered By: Joe Alcala Other Ambulatory Orders: [place] barium swallow modifd 74030 (Routine) Timeframe: 1 Week Facility: [facility] - Location: Radiology Ordered By: Joe Alcala Referrals: Humera Mayen MD [Primary Care Provider, Family Practice] - 4-7 days Referral Note: Please call and make your follow effie. Patient Instructions: Levothyroxine (By mouth), Amoxicillin (By mouth), Levofloxacin (By mouth), Sacubitril/Valsartan (By mouth), End Stage Kidney Disease (DC), Chest Pain Stoplight, Opioid Safety, Pneumonia Stoplight, Patient Portal & Effie Instructions Activity Restrictions/Additional Instructions: Take Augmentin and Levaquin which are the antibiotic for next 5 days. Follow-up as an outpatient for modified barium swallow. Should repeat thyroid panel in 4 to 6 weeks. Discharge Attestations Time Spent in Discharge Care*: greater than 30 min Specific Discharge Activities: educating patient, educating and/or supporting family/caregiver, discussing with pcp/other providers, discussing with porter sample case/social workers/dc planners, documenting/other paperwork and evaluating patient/reviewing data Status at Discharge: Cognitive status at discharge: cognitively intact, Behavioral status at discharge: cooperative, Functional status at discharge: independent ambulation, Overall status at discharge: patient is back to baseline Quality Metrics Clinical Quality Measures [ No reported AMI, CVA or VTE this stay] Coding Level of Care Code 57854 Total time (in minutes) for Discharge: 65 Diagnoses Pneumonia J18.9 End stage renal disease on dialysis N18.6; Z99.2 Congestive heart failure I50.9 Aortic valve stenosis I35.0 Hypertension secondary to other renal disorders I15.1 Hypertension type: secondary to other renal disorders Aspiration pneumonia J69.0 Subclinical hypothyroidism E03.8
[2025-02-18 12:35] VITALS: BP 143/62; PULSE 71; RESP 16; TEMP 37; O2SAT 94
== END 2025-02-18 12:39 | disposition home or self-care (01) | DRG 193 ==
LOC: ER 13:04 → CSU 17:33
PROVIDERS: Admitting Provider Student in an Organized Health Care Education/Training Program; Emergency Provider Emergency Medicine; PCP Family Medicine; Visit Provider Student in an Organized Health Care Education/Training Program
DX: J18.9 Pneumonia, unspecified organism (principal); N18.6 End stage renal disease; I13.2 Hypertensive heart and chronic kidney disease with heart failure and with stage 5 chronic kidney disease, or end stage renal disease; I50.30 Unspecified diastolic (congestive) heart failure; I35.0 Nonrheumatic aortic (valve) stenosis; E03.9 Hypothyroidism, unspecified; M10.9 Gout, unspecified; E78.5 Hyperlipidemia, unspecified; Z99.2 Dependence on renal dialysis; Z87.891 Personal history of nicotine dependence; Z86.73 Personal history of transient ischemic attack (TIA), and cerebral infarction without residual deficits; Z79.82 Long term (current) use of aspirin
CPT/HCPCS: 36415; 71250; 74176; 80053; 80061; 83036; 83540; 83550; 83605; 83690; 83735; 84100; 84145; 84439; 84443; 84481; 85025; 87040; 87070; 87205; 93005; 94640; 94664; 96365; 96372; 96375; 99285; J0360; J1644; J2020; J2185; J2470; J2543; J3373; J7030; J7050; J7626; J9999

== ENCOUNTER 2025-02-21 07:07 | Outpatient (CLI) | payer OTHER, SELFPAY | END 2025-02-21 07:08 | disposition home or self-care (01) | LOC: RAD 07:08 | PROVIDERS: PCP Family Medicine; Visit Provider Internal Medicine Cardiovascular Disease | DX: I35.0 Nonrheumatic aortic (valve) stenosis (principal) | CPT/HCPCS: 93306 ==

== ENCOUNTER 2025-02-22 09:49 | Emergency (ER) | payer OTHER, MEDICARE, SELFPAY ==
--- NOTE | 2025-02-22 09:55 | CT_ITS ---
WS: [id number] CT HEAD TECHNIQUE: Noncontrast CT of the head obtained from the skullbase to the vertex. CLINICAL INFORMATION: Trauma COMPARISON: None. DLP: 1345.[address] scans at [facility] use at least one of these dose optimization techniques: automated exposure control; mA and/or kV adjustment per patient size (includes targeted exams where dose is matched to clinical indication); or iterative reconstruction. FINDINGS: Beam hardening artifact degrades some images. Large soft tissue and scalp hematoma overlying the LEFT inferior frontal calvarium and superior orbit. Tiny focus of extra-axial hemorrhage or contusion LEFT frontal lobe inferiorly deep to the area of scalp contusion. Small amount of suspected contrecoup subarachnoid blood products overlying the RIGHT parietal lobe posteriorly. No large subdural collections. See bookmarked images Moderate small vessel changes. Moderate parenchymal volume loss. Chronic lacunar infarcts in the LEFT greater than RIGHT basal ganglia. Vascular calcification. Tiny chronic lacunar infarcts in the cerebellum. Fluid in the sphenoid sinus. Mastoid air cells are well aerated. Scalp calcifications. CT/CT head wo con* [id number] IMPRESSION: 1. Small focus blood products LEFT inferior frontal lobe deep to the area of s calp contusion. 2. Suspected small amount of subarachnoid blood products in the RIGHT parietal lobe. 3. Moderate small vessel changes. Moderate parenchymal volume loss. 4. Chronic lacunar infarcts in the basal ganglia and cerebellum. 5. Large LEFT frontal scalp hematoma Notified Landen Pino DO at 02/22/2025 10:29 AM.
--- NOTE | 2025-02-22 09:55 | CT_ITS ---
WS: [id number] CT CERVICAL TRAUMA TECHNIQUE: Noncontrast CT of the cervical spine with coronal and sagittal reformatted images. CLINICAL INFORMATION: Trauma COMPARISON: None. DLP: 1345.[address] scans at [facility] use at least one of these dose optimization techniques: automated exposure control; mA and/or kV adjustment per patient size (includes targeted exams where dose is matched to clinical indication); or iterative reconstruction. FINDINGS: Osteopenia. Straightening of the normal cervical lordosis. Moderate spondylitic changes. Normal craniocervical junction. Normal C1-C2 articulation. Dens is normal in appearance. Normal occipital condyles. Mild central canal stenosis in the mid cervical spine with disc osteophyte complexes at C4-C6. Normal C1 ring. No evidence of acute fracture or dislocation. Normal prevertebral soft tissues. Mastoids air cells are well aerated. Vascular calcification. Pleural plaques LEFT lung apex. CT/CT cervical spin wo con* [id number] IMPRESSION: No evidence of acute fracture or dislocation.
--- NOTE | 2025-02-22 09:55 | W.ED.HEATRA ---
HPI - Head Injury General: Chief complaint: Fall Stated complaint: head lac Time Seen by Provider: 02/22/25 09:50 History of Present Illness: 84-year-old male presents emergency room after a fall. He [facility] he was found down in the parking lot when EMS arrived he was inside the building he does not recall falling he is awake alert. He has a history of aortic stenosis he also has a history of end-stage renal disease he received a full course of dialysis treatment this morning he remembers doing that he does not really remember much of anything else he cannot recall how he arrived here. He denies any chest pain or abdominal pain denies neck pain does state he has a bit of a headache no visual difficulties. He has not vomited. EMS reports he is on anticoagulant. Associated symptoms: Deny neck pain Related Data Home Medications ?Medication ?Instructions ?Recorded ?Confirmed allopurinol 100 mg tablet 100 mg PO QPM 10/08/20 02/22/25 calcium acetate 667 mg tablet 667 mg PO BID 10/08/20 02/22/25 carvedilol 25 mg tablet 25 mg PO BID 12/03/23 02/22/25 nifedipine 60 mg tablet,extended 60 mg PO QAM 12/03/23 02/22/25 release 24 hr atorvastatin 40 mg tablet 40 mg PO QPM 08/25/24 02/22/25 trazodone 100 mg tablet 50 mg PO BEDTIME 01/22/25 02/22/25 guaifenesin 600 mg tablet, 600 mg PO BID PRN Congestion 01/30/25 02/22/25 extended release 12 hr (Mucinex) hydralazine 25 mg tablet 25 mg PO BEDTIME PRN Sleep 01/30/25 02/22/25 Previous Rx's ?Medication ?Instructions ?Recorded aspirin 81 mg tablet,delayed 81 mg PO DAILY 30 days #30 tabs 02/04/25 release amoxicillin 875 mg-potassium 1 tab PO BID 7 days #14 tabs 02/18/25 clavulanate 125 mg tablet levofloxacin 750 mg tablet 750 mg PO Q24H 7 days #7 tabs 02/18/25 levothyroxine 25 mcg tablet 25 mcg PO QAM #30 tabs 02/18/25 sacubitril 24 mg-valsartan 26 mg 1 tab PO BID #60 tabs 02/18/25 tablet (Entresto) Allergies Allergy/AdvReac Type Severity Reaction Status Date / Time No Known Allergies Allergy Verified 08/23/24 13:06 Review of Systems Const: Denies: fever(s) or chills Card: Denies: chest pain Resp: Denies: dyspnea GI: Denies: abdominal pain : Denies: dysuria, urinary frequency or urinary urgency Musc: Denies: neck pain or back pain Skin/Breast: Denies: rash PFSH ED PFSH: Medical History Hypertension Tuberculosis Acute exacerbation of CHF (congestive heart failure) NSTEMI (non-ST elevated myocardial infarction) Pleural effusion Elevated troponin ESRD (end stage renal disease) Hyperlipidemia Abnormal stress test COVID-19 Chronic gout Vitamin D deficiency Vitamin B12 deficiency (dietary) anemia History of TIA (transient ischemic attack) Surgical History S/P hemodialysis catheter insertion History of left knee surgery History of right knee surgery Family History Denies family history of Anesthesia complication Bleeding disorder Social History Smoking and tobacco/nicotine status: former use of tobacco/nicotine Alcohol intake: never Substance/Drug Use: never Physical Exam Const: GENERAL APPEARANCE: cooperative ORIENTATION/CONSCIOUSNESS: Yes awake, Yes oriented to person, Yes oriented to place and Yes oriented to time HENMT: COMMON NORMALS: normocephalic and hearing grossly normal bilaterally HEAD & SCALP: normocephalic OTHER: Large hematoma above the lateral left supraorbital ridge. Some oozing from superficial abrasion in this area. Eye: OTHER: Pupils equal reactive extraocular movements intact Resp: COMMON NORMALS: normal respiratory effort, No retractions, No use of accessory muscles and clear to auscultation bilaterally AUSCULTATION: clear to auscultation bilaterally Cardio: COMMON NORMALS: regular rate and No murmurs present (Cardio) RATE: regular rate RHYTHM: abnormal rhythm irregularly irregular OTHER: Grade 5-6 systolic murmur right sternal border radiating to the apex GI: COMMON NORMALS: Soft to palpation and No hepatosplenomegaly present AUSCULTATION: Yes normoactive bowel sounds PALPATION: Yes Soft to palpation, No Tenderness to palpation present (GI), No Guarding due to palpation present (GI) and Yes No hepatosplenomegaly present Extremity: COMMON NORMALS: normal to inspection, capillary refill normal, no clubbing, cyanosis or edema, no calf tenderness and no pedal edema Neuro: SENSORIUM/ORIENTATION: Yes oriented to person, Yes oriented to place and Yes oriented to time Skin: COMMON NORMALS: no rashes or lesions noted GENERAL SKIN EXAM: no rashes or lesions noted Course Vital Signs: Vital signs: Vital Signs Temperature 98.6 F 02/22/25 09:59 Pulse Rate 75 02/22/25 11:12 Blood Pressure 191/71 02/22/25 11:12 Pulse Oximetry 98 02/22/25 11:12 Oxygen Delivery Me thod Room Air 02/22/25 10:51 MDM - Head Injury Medcial Decision Making Patient has subarachnoid bleed at the point of impact in the left frontal and a countercoup punctate subarachnoid bleed in the right parietal area. He is otherwise stable at this time. Patient was accepted at [facility] in the ER to ER transfer under trauma protocols. At time of transfer patient is stable Medical Records I reviewed the patient's medical records. Lab Data I reviewed the patient's lab results. Radiology Impressions Cervical Spine CT 02/22/25 09:55 IMPRESSION: No evidence of acute fracture or dislocation. Head CT 02/22/25 09:55 IMPRESSION: 1. Small focus blood products LEFT inferior frontal lobe deep to the area of scalp contusion. 2. Suspected small amount of subarachnoid blood products in the RIGHT parietal lobe. 3. Moderate small vessel changes. Moderate parenchymal volume loss. 4. Chronic lacunar infarcts in the basal ganglia and cerebellum. 5. Large LEFT frontal scalp hematoma Notified Landen Pino DO at 02/22/2025 10:29 AM. All radiology interpretation(s) finalized by discharge Discharge Plan Discharge Patient Disposition: Transfer to ED Clinical Impression: Traumatic injury of head, Subarachnoid hemorrhage, Aortic valve stenosis, ESRD (end stage renal disease) Condition: Stable Prescriptions: No Action allopurinol 100 mg tablet 100 mg PO QPM calcium acetate 667 mg tablet 667 mg PO BID trazodone 100 mg tablet 50 mg PO BEDTIME carvedilol 25 mg Tablet 25 mg PO BID nifedipine 60 mg Tablet Extended Release 24hr 60 mg PO QAM atorvastatin 40 mg tablet 40 mg PO QPM hydralazine 25 mg Tablet 25 mg PO BEDTIME PRN (Reason: Sleep) guaifenesin [Mucinex] 600 mg Tablet Extended Release 12hr 600 mg PO BID PRN (Reason: Congestion) aspirin 81 mg Tablet,Delayed Release (Dr/Ec) 81 mg PO DAILY 30 Days Qty: 30 0RF levothyroxine 25 mcg Tablet 25 mcg PO QAM Qty: 30 0RF sacubitril-valsartan [Entresto] 24-26 mg Tablet 1 tab PO BID Qty: 60 0RF levofloxacin 750 mg tablet 750 mg PO Q24H 7 Days Qty: 7 0RF amoxicillin-pot clavulanate 875-125 mg tablet 1 tab PO BID 7 Days Qty: 14 0RF Referrals: Humera Mayen MD [Primary Care Provider, Family Practice] Print Language: Martiniquais Coding Level of Care Code ED 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
--- NOTE | 2025-02-22 09:57 | ECG_ITS ---
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
--- OUTSIDE RECORDS SUMMARY | 2025-02-22 09:58 | XMS_ITS | Clinical Summary ---
Author Organization [facility] Address [address] [place] [address] Phone Care Team Providers Care Obstetrics Gyn Name Role Phone Jesu Schmitz MD Primary Care Provider [phone] Allergies Active Allergy Reactions Criticality Noted Date [...] Encounters Date Type Department Care Team Description 02/19/2025 Telephone [facility] Gen Spec Surg [place] [address] [place] [address] Shayne Merchant MD Surgery 01/16/2025 External Device Data STL ABSTRACTION Provider, [...] 07/12/2013 Insurance MEDICARE PART A HOSPITAL ONLY [facility] [place] [address] [place] [address] [employer] Advance Directives For more information, please contact: [phone] * Full Code (Latest Code Status on File) Date Activated Date Inactivated Comments 02/07/2023 1:45 AM 02/10/2023 2:02 PM Care Teams Obstetrics Gyn Relationship Specialty Start Date End Date Jesu Schmitz MD [address] [place] [address] PCP - General Internal Medicine 02/07/23
--- OUTSIDE RECORDS SUMMARY | 2025-02-22 09:58 | XMS_ITS | Encounter Summary ---
Author Organization [facility], [facility] Address [address] [place] [address] Phone Care Team Providers Care Attorney General Name Role Phone Unavailable Primary Care Provider Yohana e Encounter Details Date Type Department Care Team (Late st Contact Info) Description 02/15/2025 Orders Only [facility]ikeyan [facility] [address] [place] [address] Lara Jeffers MD [address] [place] [address] Social History Tobacco Use Types [...] 02/15/2025 CHEMISTRY Routine 02/15/2025 CHEMISTRY Routine 02/15/2025 [facility] RESULTS Routine 02/15/2025 documented in this encounter Results * [facility] Results (02/15/2025) spKt/V (Daugirdas II) 1.92 [facility] eNPCR 0.64 [facility] eKt/V Gotch 1.57 [facility] W[facility]KT/V 2.6 [facility] nPCR_HD 0.69 [facility] PCR 40.18 [facility] spKt/V Gotch 1.93 [facility] [place] eKdrt/V 1.57 [facility] eKt/V ([place]) 1.60 [facility] 02/15/2025 02/15/2025 [facility] Ordering Provider LAB BLOOD ORDERABLES Final Result [facility] Contact Performing lab Unknown, [place] * [facility] Chemistry (02/15/2025) Pathologist [facility] PTH 54 16 - 80 pg/mL [facility] 02/15/2025 02/16/2025 11: 26 AM CDT Narrative [facility] - 02/16/2025 Unless otherwise specified, test(s) performed at: [facility], [address] [place] [address] GLUER MACHINE OPERATOR: Gabriel Herring M.D. For any questions, please call customer service at FREQUENCY:MONTHLY Resulting Agency Comment Specimen source: Plasma Lara Jeffers MD LAB BLOOD ORDERABLES Final Re sult Performing Organization Address [facility] de Phone Number [facility] See order comments or contact performing lab Unknown, [place] * (ABNORMAL) HD KINETICS (02/15/2025) Pathologist [facility] % Urea Reduction 81(H) 65 - 80 % [facility] 02/15/2025 02/16/2025 10: 27 AM CDT Narrative Resulting Agency Comment Specimen source: Plasma Lara Jeffers MD LAB BLOOD ORDERABLES Final Re sult Performing Organization Address City/[facility]/ZIP Co de Phone Number [facility] See order comments or contact performing lab Unknown, [place] * POST CHEMISTRY (02/15/2025) BUN Post Dialysis 6 6 - 19 mg/dL [facility] 02/15/2025 02/16/2025 10: 27 AM CDT Narrative [facility] - 02/16/2025 Unless otherwise specified, test(s) performed at: [facility], [address] [place], [place] [id number] GLUER MACHINE OPERATOR: Gabriel Herring M.D. For any questions, please call customer service at FREQUENCY:MONTHLY Resulting Agency Comment Specimen source: Plasma us Lara Jeffers MD LAB BLOOD ORDERABLES Final Re sult [facility] See order comments or contact performing lab Unknown, [place] * [facility]ABNORMAL[facility] (02/[facility]25) BUN 32(H) 6 - 19 [...] Labs UIBC 138(L) 155 - 355 mcg/dL [facility] TIBC 180(L) 185 - 515 mcg/dL [facility] Iron Saturation (TSat) 23 20 - 55 % [facility] Ferritin 1,436(H) 22 - 322 ng/mL [facility] Comment: Verified by repeat analysis. 02/15/2025 02/16/2025 10: 50 AM CDT Narrative [facility] - 02/16/2025 Unless otherwise specified, test(s) performed at: [facility], [address] [place], [place] [id number] GLUER MACHINE OPERATOR: Gabriel Herring M.D. For any questions, please call customer service at FREQUENCY:MONTHLY Resulting Agency Comment Specimen source: Serum Lara Jeffers MD LAB BLOOD ORDERABLES Edited R esult - Final Performing Organization Address [facility] de Phone Number [employer] See order comments or contact performing lab Unknown, [place] * TRACE ELEMENTS (02/15/2025) Pathologist [facility] Aluminum 5 0 - 10 mcg/L [facility] Comment: This test was developed and its performance characteristics determined by [facility]. It has not been cleared or approved by the FDA. The laboratory is regulated under CLIA as qualified to perform high complexity testing. This test is used for clinical purposes. It should not be regarded as investigational or for research. 02/15/2025 02/16/2025 9:1 2 AM CDT Narrative [facility] - 02/16/2025 Unless otherwise specified, test(s) performed at: [facility], [address] [place] [id number] GLUER MACHINE OPERATOR: Gabriel Herring M.D. For any questions, please call customer service at FREQUENCY:MONTHLY Resulting Agency Comment Specimen source: Serum Lara Jeffers MD LAB BLOOD ORDERABLES Final Re sult Performing Organization Address [facility] de Phone Number [employer] See order comments or contact performing lab [...] 02/16/2025 Unless otherwise specified, test(s) performed at: [facility], [address] [place] [id number] GLUER MACHINE OPERATOR: Gabriel Herring M.D. For any questions, please call customer service at FREQUENCY:MONTHLY Resulting Agency Comment Specimen source: Blood us Lara Jeffers MD LAB BLOOD ORDERABLES Final Re sult [employer] [facility] See order comments or contact performing lab Unknown, [place] documented in this encounter Visit Diagnoses Not on filedocumented in this encounter
--- OUTSIDE RECORDS SUMMARY | 2025-02-22 09:58 | XMS_ITS | Patient Health Record ---
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
--- OUTSIDE RECORDS SUMMARY | 2025-02-22 09:58 | XMS_ITS | Encounter Summary ---
Author Organization [place] [facility], [facility] Address [address] [facility] [address] [place] [address] Phone Care Team Providers Care Nipping Machine Operator Name Role Phone Unavailable Primary Care Provider Unavailabl e Encounter Details Date Type Department Care Team (Late st Contact Info) Description 02/20/2025 [facility]CM [facility] [address] [facility] [address] [place] [address] Lisha Kendall NP [address] [facility] [address] [place] [address] Social History Tobacco Use Types Packs/Day Years Used Date Smoking Tobacco: Never Assessed Sex and Gender Information Value Date Recorded Sex Assigned at Not on file Legal Sex Male 10:37 AM EDT Gender Identity Not on file Sexual Orientation Not on file documented as of this encounter Progress Notes * Lisha Kendall NP - 02/20/2025 12:00 AM CDT Patient: Fermin Patel : 1940 Note Type: Dialysis TCM Service Date: 02/20/2025 The patient was seen for a czhd-hx-xmvg visit as part of Transitional Care Management services. Attending Poured Pipe Maker: MAINOR SONG Dialysis Location: [facility] Schedule: Shift: 1 INTERACTIVE CONTACT This isem-ii-akzk visit occurred within 2 business days of the patient?s discharge. HOSPITALIZATION SUMMARY Patient transitioned from: Hospital Patient transitioned to: Home Admit Date: 02/17/2025 Discharge Date: 02/18/2025 Discharged info reviewed: No outstanding diagnostic tests and treatments Reason for admission: PNA: placed on antibiotics. HOME MEDICATIONS Discharge med list reviewed - changes reconciled and discussed with patient. Active treatment medication orders reviewed - no changes. TREATMENT MEDICATIONS ORDERS Mircera 60 mcg IVP Every 2 weeks During Dialysis 01/09/2025 - 01/08/2026 PHYSICAL EXAM Exam performed. Vital Signs Reviewed. Lungs - With bibasilar rales. CV - Blood pressure noted. CV - RRR. No edema. EXT - No ulcers. DIALYSIS PRESCRIPTION Dry weight during admission reviewed - no change to EDW. Treatment Data Treatment Date: 02/20/2025 started at: 5:54 AM Dialysate / Machine Temp (prescribed): 37.0*C Dialysate / Machine Temp (actual): 37.0*C BFR (prescribed): 550 BFR (average delivered): 470 DFR (prescribed): Autoflow 2.0 DFR (average delivered): 760 Prescribed Time: 03:00 Actual Time: 03:03 EDW (kg): 59.7 Dialyzer: 180NRe Optiflux Dialysate: 2.0 K, 2.5 Ca, 1.0 Mg, 100 Dextrose (G2251) Sodium: 138 Bicarb: 32 Pre Dialysis Vitals Pre BP Sit: 108/49 Pre Wt (kg): 62.8 EDW Deviation (kg): 3.1 Temp: 99.1*F Post Dialysis Vitals Post BP Sit: 103/60 Post Wt (kg): 60.6 CARE COORDINATION Post-discharge follow-up appointments reviewed with the patient. EDUCATION Education relevant to the discharge diagnosis provided to the patient or caregiver VISIT DIAGNOSES CPT Code 43426 - High complexity, seen within 7 days of discharge. J18.9 Pneumonia, unspecified organism COMMENTS: Following with PCP: verified on antibiotics, reports has at home. Signed by: LISHA KENDALL NP on 02/20/2025 at 01:26:21 PM Transcribed by: LISHA KENDALL NP on 02/20/2025 at 01:26:21 PM documented in this encounter Plan of Treatment Not on file documented as of this encounter Visit Diagnoses Not on filedocumented in this encounter
--- OUTSIDE RECORDS SUMMARY | 2025-02-22 09:58 | XMS_ITS | Encounter Summary ---
Author Organization [facility] [employer], [facility] Address [address] [facility] [address] [place] [address] Phone Care Team Providers Care Nut Chopper Name Role Phone Unavailable Primary Care Provider Unavailbrittany e Encounter Details Date Type Department Care Team (Late st Contact Info) Description 02/17/2025 Orders Only Karthikeyan [facility] [employer] [facility], [facility] [address] [facility] [address] [place] [address] Lara Jeffers MD [address] [facility] [address] [facility] [address] [place] [address] Social History Tobacco Use Types Packs/Day Years Used Date Smoking Tobacco: Never Assessed Sex and Gender Information Value Date Recorded Sex Assigned at Not on file Legal Sex Male 10:37 AM EDT Gender Identity Not on file Sexual Orientation Not on file documented as of this encounter Plan of Treatment Pending Results Name Type Priority Associated Diagnoses Date /Time Blood culture Microbiology Routine Blood culture Microbiology Routine documented as of this encounter Procedures Procedure Name Priority Date/Time Associated Diagnosis Comments CULTURE,BLOOD-2ND SET Routine 02/17/2025 BLOOD CULTURE Routine 02/17/2025 documented in this encounter Visit Diagnoses Not on filedocumented in this encounter
--- OUTSIDE RECORDS SUMMARY | 2025-02-22 09:58 | XMS_ITS | Encounter Summary ---
Author Organization [place] [employer], [facility] Address [address] [address] Phone Care Team Providers Care Drafter Electrical Name Role Phone Unavailable Primary Care Provider Unavailabl e Encounter Details Date Type Department Care Team (Late st Contact Info) Description 02/20/2025 [facility], [facility] [address] [facility] [address] [place] [address] Lisha Kendall NP [address] [facility] [address] [place] [address] End stage renal disease; Dependence on renal dialysis Social History Tobacco Use Types Packs/Day Years Used Date Smoking Tobacco: Never Assessed Sex and Gender Information Value Date Recorded Sex Assigned at Not on file Legal Sex Male 10:37 AM EDT Gender Identity Not on file Sexual Orientation Not on file documented as of this encounter Miscellaneous Notes * Dialysis Note - Lisha Kendall NP - 02/20/2025 12:00 AM CDT Patient: Fermin Patel : 1940 Note Type: Dialysis Rounds-Comp Service Date: 02/20/2025 This patient was personally seen [id number] for a complete visit as part of routine monthly dialysis care for end stage renal disease. Attending Industry Analyst: MAINOR SONG Dialysis Location: [facility] Schedule: Shift: 1 OVERVIEW Patient is stable. Patient has no complaints. COMMENTS: Seen on HD. No concerns. Hospitalized over the weekend, dx community acquired PNA. See TCM for review HOME MEDICATIONS Current [facility] Outpatient Medications albuterol sulfate 90 mcg/actuation HFA aerosol inhaler Inhale 2 puff using inhaler every four hours while awake as needed. [FOR sob, WHEEZING] allopurinol 100 mg tablet Take 1 tablet by mouth once a day. [(Gout)] aspirin 81 mg tablet,delayed release (DR/EC) Take 1 tablet by mouth once a day. atorvastatin 40 mg tablet Take 1 tablet [...] every morning and one tablet with dinner] guaifenesin 600 mg tablet extended release 12hr Take 1 tablet by mouth every twelve hours as needed. [congestion] hydralazine 25 mg tablet Take 1 tablet by mouth every night at bedtime. lisinopril 20 mg tablet Take 1 tablet by mouth every evening. [With Dinner .] nifedipine 60 mg tablet extended release Take 2 tablet by mouth once a day. [take 1 on mornings of dialysis and 2 on morning with no dialysis.] Renal-Kiley 0.8 mg tablet Take 1 tablet by mouth once a day. [Full Spectrum with Vitamin C] trazodone 100 mg tablet Take 1 tablet by mouth every night at bedtime as needed. [for sleep] [facility] Allergies Allergen: AMOXICILLIN Reaction: Unknown DIALYSIS PRESCRIPTION Treatment Data Treatment Date: 02/20/2025 started at: [...] BP Sit: 103/60 Post Wt (kg): 60.6 TREATMENT MEDICATIONS ORDERS Mircera 60 mcg IVP Every 2 weeks During Dialysis 01/09/2025 - 01/08/2026 BP AND FLUID ASSESSMENT Acceptable blood pressure. Fluid status acceptable. Post BP Sit 103/60 - 02/20/2025 124/62 - 02/17/2025 139/62 - 02/15/2025 Post Wt (kg) 60.6 - 02/20/2025 59.6 - 02/17/2025 59.7 - 02/15/2025 EDW (kg) 59.7 - 02/20/2025 59.7 - 02/17/2025 60.0 - 02/15/2025 Deviation (kg) 0.9 - 02/20/2025 -0.1 - 02/17/2025 -0.3 - 02/15/2025 ADEQUACY ASSESSMENT spKt/V (Daugirdas II) 1.92 (02/15/25) 1.81 (01/18/25) 1.66 (12/21/24) eKdrt/V 1.57 (02/15/25) 1.49 (01/18/25) 1.36 (12/21/24) % Urea Reduction 81 (02/15/25) 79 (01/18/25) 77 (12/21/24) BUN 32 (02/15/25) 48 (01/18/25) 61 (12/21/24) BUN Post Dialysis 6 (02/15/25) 10 (01/18/25) 14 (12/21/24) Creatinine 5.70 (02/15/25) 6.10 (01/18/25) 6.35 (12/21/24) Bicarbonate (CO2) 26 (02/15/25) 25 (01/18/25) 22 (12/21/24) Sodium 139 (02/15/25) 134 (01/18/25) 136 (12/21/24) Target met. Missed Treatments 3 - Last 30 days 3 - Last 60 days Most recently missed on 02/03/2025 ACCESS ASSESSMENT Vascular access examined. AVF/AVG positive thrill/bruit. Current access is permanent and functioning well. AVGraft Unknown Left Upper Arm Active (In Use) - 01/29/2022 Placed - 08/20/2020 Access Flow 777 (02/20/25) 973 (01/09/25) 775 (11/25/24) ANEMIA ASSESSMENT Hemoglobin 9.7 (02/15/25) 9.4 (02/08/25) 9.7 (02/06/25) Iron Saturation (TSat) 23 (02/15/25) 21 (01/18/25) 42 (12/21/24) Ferritin 1,436 (02/15/25) 1,431 (11/18/24) 1,286 (10/19/24) Iron 42 (02/15/25) 36 (01/18/25) 75 (12/21/24) TIBC 180 (02/15/25) 173 (01/18/25) 180 (12/21/24) Reticulocyte Hemoglobin 30.5 (01/25/25) 30.1 (12/07/24) 30.6 (10/26/24) MCV 95 (02/15/25) 97 (01/18/25) 92 (12/21/24) Folate 14.4 (08/17/24) Platelets 279 (02/15/25) 228 (01/18/25) 222 (12/21/24) Anemia targets not met. Hemoglobin not at target. JANIE adjusted per protocol. Continue maintenance iron. BMM ASSESSMENT Calcium 8.8 02/15/25 9.0 01/18/25 8.9 12/21/24 Corrected Calcium 9.2 02/15/25 9.3 01/18/25 9.1 12/21/24 Phosphorus 4.1 02/15/25 4.9 01/18/25 5.3 12/21/24 Calcium Phosphorus Product 36 02/15/25 44 01/18/25 47 12/21/24 PTH 54 02/15/25 80 11/18/24 117 08/17/24 Vitamin D, 25-OH, Total 77.9 08/17/24 Magnesium 2.3 02/15/25 2.0 11/18/24 2.4 08/17/24 Alkaline Phosphatase 88 02/15/25 104 11/18/24 109 08/17/24 Aluminum 5 02/15/25 ?5 08/17/24 PTH within target. Phosphorus controlled. Calcium controlled. Bone and mineral metabolism parameters reviewed. NUTRITION ASSESSMENT Albumin 3.5 02/15/25 3.6 01/18/25 3.7 12/21/24 Potassium 4.4 02/15/25 4.7 01/18/25 5.2 12/21/24 eNPCR 0.64 02/15/25 0.85 01/18/25 0.99 12/21/24 Albumin not at goal. Potassium controlled. Referred to director of oncology for further counseling. PHYSICAL EXAM Exam not performed. ADDITIONAL LABS WBC 9.16 (02/15/25) 8.12 (01/18/25) 10.52 (12/21/24) Hepatitis B Surface Ab 174 (11/23/24) 181 (11/21/24) 170 (11/18/24) ADDITIONAL COMMENT COMMENTS: No changes today Signed by: LISHA KENDALL NP on 02/20/2025 at 01:21:38 PM Transcribed by: LISHA KENDALL NP on 02/20/2025 at 01:21:38 PM documented in this encounter Plan of Treatment Not on file documented as of this encounter Visit Diagnoses Diagnosis End stage renal disease Dependence on renal dialysis documented in this encounter
--- OUTSIDE RECORDS SUMMARY | 2025-02-22 09:58 | XMS_ITS | Encounter Summary ---
Author Organization [facility] Address [address] [place] [address] Care Team Providers Care New Car Salesperson Name Role Phone Jesu Schmitz MD Primary Care Provider [phone] Reason for Visit * Reason Onset Date Comments Surgery 02/19/2025 Encounter Details Date Type Department Care Team (Late st Contact Info) Description 02/19/2025 Telephone [facility] Gen Spec Surg [place] [facility] [address] [place] [address] Shayne Merchant MD [address] [place] [address] Surgery Social History Tobacco Use Types Packs/Day Years Used Date Smoking Tobacco: Former Cigarettes Feeling Safe Answer Date Recorded Are you [...] as of this encounter Miscellaneous Notes * Telephone Encounter - Eusebia Sade - 02/19/2025 11:31 AM CDT Reaching out to Gena WOODRUFF at [place] [phone] X [phone] to see if she can assist in getting pt [facility] Card[facility] Clear[facility], since I have been trying since 10/25/24 to obtain it, and pt has also tried and had no luck. Would like to get cc so we can get him scheduled at the main w/ Dr. Endy Merchant for Robotic Left Inguinal Hernia repair with mesh. documented in this encounter Plan of Treatment Not on file documented as of this encounter Visit Diagnoses Not on filedocumented in this encounter Care Teams New Car Salesperson Relationship Specialty Start Date End Date Jesu Schmitz MD [address] [place] [address] PCP - General Internal Medicine 02/07/23 documented as of this encounter
--- OUTSIDE RECORDS SUMMARY | 2025-02-22 09:58 | XMS_ITS | Clinical Summary ---
Author Organization [facility] [employer], [facility] Address [address] [place] [address] Phone Care Team Providers Care Security Operations Manager Name Role Phone Unavailable Primary Care Provider Unavailabl e Medications lisinopril 10 MG tablet Take 1 tablet (10 mg total) by mouth every night 30 tablet 11 08/17/2023 Active loratadine (Claritin) 10 MG tablet Take 1 tablet (10 mg total) by mouth 1 (one) time each day for 14 days 14 tablet 06/01/2024 Active Encounters Date Type Department Care Team Description 02/20/2025 [facility]CM in [facility] [employer], [facility] [address] [place] [address] Colleen Kendall NP 02/20/2025 [facility] [employer], [facility] [address] [place] [address] Colleen Kendall NP End stage renal disease; Dependence on renal dialysis 02/17/2025 Orders Only [place] [facility] [employer], [facility] [address] [place] [address] Lara Jeffers MD 02/15/2025 Orders Only [place] [employer], [facility] [address] [place] [address] Lara Jeffers MD 02/13/[address] [place] [address] [employer], [facility] [address] [place] [address] Rizwana French NP End stage renal disease; Dependence on renal dialysis 02/08/2025 Orders Only [facility], [facility] [address] [place] [id number] Lara Jeffers MD 02/06/2025 [facility], [facility] [address] [place] [address] Lara Jeffers MD 02/06/[address] [place] [address], [facility] [address] [place] [address] Rizwana French, MIRELLA End stage renal disease; Dependence on renal dialysis 01/25/2025 [facility], [facility] [address] [place] [address] Lara Jeffers MD 01/23/[address] [place] [address], [facility] [address] [place] [address] Rizwana French NP End stage renal disease; Dependence on renal dialysis 01/18/[address] [place] [address], [facility] [address] [place] [address] Colleen Kendall NP End stage renal disease; Dependence on renal dialysis 01/18/2025 [facility], [facility] [address] [place] [address] Lara Jeffers MD 01/04/2025 [facility], [facility] [address] [place] [address] Lara Jeffers MD 01/02/[address] [place], [place] [address]rology [facility], [facility] [address] [place] [address] Lara Jeffers MD End stage renal disease; Dependence on renal dialysis 12/28/2024 Orders Only [facility], [facility] [address] [place] [address] Lara Jeffers MD 12/26/[address] [place], [place] [address] [facility], [facility] [address] [place] [address] Rizwana French NP End stage renal disease; Dependence on renal dialysis 12/21/2024 [facility], [facility] [address] [place] [address] Lara Jeffers MD 12/19/[address] [place] [address] [facility], [facility] [address] [place] [address] Colleen Kendall NP End stage renal disease; Dependence on renal dialysis 12/07/2024 [facility], [facility] [address] [place] [address] Lara Jeffers MD 12/05/[address] [place] [address] [facility], [facility] [address] [place] [address] Rizwana French NP End stage renal disease; Dependence on renal dialysis 11/30/2024 [facility], [facility] [address] [place] [address] Lara Jeffers MD 11/30/[address] [place] [address] [facility], [facility] [address] [place] [address] Lara Jeffers MD End stage renal disease; Dependence on renal dialysis 11/23/2024 Orders Only [facility], [facility] [address] [place] [address] Lara Jeffers MD from Last [...] Procedure Name Priority Date/Time Associated Diagnosis Comments BLOOD CULTURE Routine 02/17/2025 CULTURE,BLOOD-2ND SET Routine 02/17/2025 SPECTRA [facility] LAB RESULTS Routine 02/15/2025 CHEMISTRY Routine 02/15/2025 HD KINETICS Routine 02/15/2025 [...] HEMATOLOGY Routine 11/23/2024 IMMUNO CHEMISTRY Routine 11/23/2024 from Last 3 Months Results * (ABNORMAL) HD KINETICS (02/15/2025) Only the most recent of3 resultswithin the time period is included. % Urea Reduction 81(H) 65 - 80 % [employer] 02/15/2025 02/16/2025 10: 27 AM CDT Narrative Resulting Agency Comment Specimen source: Plasma us Lara Jeffers MD LAB BLOOD ORDERABLES Final Re sul Performing Organization Address [facility] de Phone Number [employer] See order comments or contact performing lab Unknown, [place] * POST CHEMISTRY (02/15/2025) Only the most recent of3 resultswithin the time period is included. Pathologist [facility] BUN Post Dialysis 6 6 - 19 mg/dL [employer] 02/15/2025 02/16/2025 10: 27 AM CDT Narrative SPECTRAE - 02/16/2025 Unless otherwise specified, test(s) performed at: [facility], [address] [place] [address] FISH HATCHERY MANAGER: Gabriel Herring M.D. For any questions, please call customer service at FREQUENCY:MONTHLY Resulting Agency Comment Specimen source: Plasma us Lara Jeffers MD LAB BLOOD ORDERABLES Final Re sult Performing Organization Address [facility] de Phone Number [employer] See order comments or contact performing lab Unknown, [place] * TRACE ELEMENTS (02/15/2025) Aluminum 5 0 - 10 mcg/L [employer] Comment: This test was developed and its performance characteristics determined by [facility]. It has not been cleared or approved by the FDA. The laboratory is regulated under CLIA as qualified to perform high complexity testing. This test is used for clinical purposes. It should not be regarded as investigational or for research. 02/15/2025 02/16/2025 9:1 2 AM CDT Narrative SPECTRAE - 02/16/2025 Unless otherwise specified, test(s) performed at: [facility], [address] [place] [address] FISH HATCHERY MANAGER: Gabriel Herring M.D. For any questions, please call customer service at FREQUENCY:MONTHLY Resulting Agency Comment Specimen source: Serum Lara Jeffers MD LAB BLOOD ORDERABLES Final Re sult [employer] See order comments or contact performing lab Unknown, [place] * (ABNORMAL) HEMATOLOGY (02/15/2025) Only the most recent of11 resultswithin the time period is included. Neutrophils 68.6 40.0 - 75.0 % Spectra [...] 02/16/2025 Unless otherwise specified, test(s) performed at: [facility], [address] [place] [address] FISH HATCHERY MANAGER: Gabriel Herring M.D. For any questions, please call customer service at FREQUENCY:MONTHLY Resulting Agency Comment Specimen source: Blood Lara Jeffers MD LAB BLOOD ORDERABLES Final Re sult Performing Organization Address [facility] Co de Phone Number [facility] [employer] [facility] See order comments or contact performing lab Unknown, [place] * [employer] (02/15/2025) Only the most recent of4 resultswithin the time period is included. PTH 54 16 - 80 pg/mL [facility] 02/15/2025 02/16/2025 11: 26 AM CDT Narrative SPECTRAE - 02/16/2025 Unless otherwise specified, test(s) performed at: [facility], [address] [place] [address] FISH HATCHERY MANAGER: Gabriel Herring M.D. For any questions, please call customer service at FREQUENCY:MONTHLY Resulting Agency Comment Specimen source: Plasma us Lara Jeffers MD LAB BLOOD ORDERABLES Final Re sult Performing Organization Address [facility] Co de Phone Number [facility] [employer] [facility] See order comments or contact performing lab Unknown, [place] * [facility]ra [facility] Lab Results (02/15/2025) Only the most recent of3 resultswithin the time period is included. spKt/V (Daugirdas II) 1.92 [facility] eNPCR 0.64 [facility] eKt/V Gotch 1.57 Knowledg e Center WSTDKT/V 2.6 [facility] nPCR_HD 0.69 [facility] PCR 40.18 [facility] spKt/V Gotch 1.93 Know[facility] ge Center eKdrt/V 1.57 [facility] eKt/V (Tattersall) 1.60 [facility] 02/15/2025 02/15/2025 us Tyler Ordering Provider LAB BLOOD ORDERABLES Final Result [facility] Contact Performing lab Unknown, [place] * IMMUNO CHEMISTRY (11/23/2024) Hepatitis B Surface Ab 174 mIU/mL [employer] Comment: The anti-HBs (Hepatitis B surface antibody) [...] 11/24/2024 Unless otherwise specified, test(s) performed at: [facility], [address] [place] [address] FISH HATCHERY MANAGER: Gabriel Herring M.D. For any questions, please call customer service at FREQUENCY:OTHER Resulting Agency Comment Specimen source: Serum us Lara Jeffers MD LAB BLOOD ORDERABLES Final Re sult [employer] See order comments or contact performing lab Unknown, [place] from Last 3 Months Insurance [employer] [address],2,[address] (VACCN) [place] [address] Regions 4 (VACCN4)
[2025-02-22 09:59] VITALS: BP 135/95; PULSE 75; TEMP 37; O2SAT 98; BMI 23.0
[2025-02-22] MEDS: tetanus-dipt-pertussis 0.5 mL SDV IM (10:34)
--- NOTE | 2025-02-22 10:36 | PC.PHAR ---
Pt states he did not continue taking aspirin 81mg after discharging from the hospital. Pt stopped Plavix 75mg in June 2024. Pt has taken his morning medications and all 4 of his new prescriptions given at discharge.
--- NOTE | 2025-02-22 10:50 | PC.NURSE ---
pt confirms only taking ASA, but hasn't taken in 2-3 days, denies anticoagulants. pt report called to [facility] ER @[phone]; report number . ER to ER. no further questions. pt notified.
[2025-02-22 10:51] VITALS: BP 189/75; PULSE 75; O2SAT 96
--- NOTE | 2025-02-22 11:08 | PC.NURSE ---
report given to [facility] @[phone], no further questions.
[2025-02-22 11:12] VITALS: BP 191/71; PULSE 75; O2SAT 98
== END 2025-02-22 11:17 ==
PROVIDERS: Emergency Provider Family Medicine; PCP Family Medicine
DX: S06.6XAA Traumatic subarachnoid hemorrhage with loss of consciousness status unknown, initial encounter (principal); I35.0 Nonrheumatic aortic (valve) stenosis; Z79.82 Long term (current) use of aspirin; I13.2 Hypertensive heart and chronic kidney disease with heart failure and with stage 5 chronic kidney disease, or end stage renal disease; N18.6 End stage renal disease; I50.9 Heart failure, unspecified; E78.5 Hyperlipidemia, unspecified; Z86.73 Personal history of transient ischemic attack (TIA), and cerebral infarction without residual deficits; Z87.891 Personal history of nicotine dependence; W19.XXXA Unspecified fall, initial encounter
CPT/HCPCS: 70450; 72125; 90471; 90715; 93005; 99284

== ENCOUNTER 2025-03-07 08:41 | Outpatient (CLI) | payer OTHER, SELFPAY ==
--- NOTE | 2025-03-07 09:00 | FL_ITS ---
WS: [id number] Exam: FL barium swallow modifd [id number] Date/Time of Exam: 03/07/2025 8:57 AM Reason For Exam: Oropharyngeal dysphagia Fluoroscopy time: 3min [id number] minutes # of spot films: Modified barium swallow was performed in conjunction with the speech therapy service. The patient experienced penetration into the laryngeal inlet when ingesting thin liquid barium. This showed significant improvement with ingestion of nectar consistency liquid. The patient tolerated the remaining barium mixture foodstuffs consistencies without aspiration or penetration. The patient ingested a barium tablet without difficulty or complication. FL/FL barium swallow modifd [id number] IMPRESSION: 1. The patient experienced penetration into the laryngeal inlet when ingesting thin liquid barium. This showed improvement when nectar consistency liquid was administered. 2. No aspiration. A separate report with recommendations will follow from the speech therapy serv ice.
== END 2025-03-07 08:42 | disposition home or self-care (01) ==
LOC: RAD 08:42
PROVIDERS: PCP Family Medicine; Visit Provider Family Medicine
DX: Z01.89 Encounter for other specified special examinations (principal); J69.0 Pneumonitis due to inhalation of food and vomit; R13.12 Dysphagia, oropharyngeal phase
CPT/HCPCS: 74230; 92611

== ENCOUNTER 2025-04-05 07:11 | Inpatient (IN) | payer OTHER, SELFPAY ==
--- OUTSIDE RECORDS SUMMARY | 2025-04-03 09:30 | XMS_ITS | Encounter Summary ---
Author Organization [facility] Address [address] [place] [address] Care Team Providers Care Physics Tutor Name Role Phone Humera Mayen MD Primary Care Provider + [phone] Reason for Referral * CT Scan (Routine) - Authorized Specialty Diagnoses / Procedures Referred By Christineac t Referred To Contact Radiology Diagnoses Subdural hematoma (CMS/HCC) Procedures CT HEAD WO CONTRAST Yvette Lopez PA [address] [place] [address] Phone: tel: fax: [facility] CT Scan [place] [address] [place] [address] Phone: tel: fax: Referral ID Status Reason Start Date Expiration Date Visits Requested Visits Authorized [id number] Authorized SDN View CTS to Schedule 02/28/2025 08/27/2025 1 1 Encounter Details Date Type Department Care Team (Latest Contact Info) Description 04/03/2025 9:30 AM CDT Telephone Check Up [facility] [address] [place] [address] Yvette Lopez PA [address] [place] [address] Subdural hematoma (CMS/HCC) (Primary Dx) Social History Tobacco Use Types Packs/Day Years Used Date Smoking Tobacco: Former Cigarettes Alcohol Use Standard Drinks/Week Comments Yes 0 (1 standard drink = 0.6 oz pur e alcohol) Feeling Safe Answer Date Recorded Are you in a relationship wi th someone who hurts you emotionally and/or physically? No 02/22/2025 Food Insecurity Answer Date Recorded Patient needs follow up regardin 02/22/2025 Transportation Needs Answer Date Record ed Patient needs follow up regardin 02/22/2025 Housing Stability Answer Date Recorded Social/Environmental Concerns No concerns Utility Needs Answer Date Recorded Patient needs follow up regardin 02/22/2025 Sex and Gender Information Value Date Recorded Sex Assigned at Not on file Legal Sex Male 7:22 PM CDT Gender Identity Not on file Sexual Orientation Not on file documented as of this encounter Progress Notes * Yvette Lopez PA - 04/03/2025 9:31 AM CDT Patient's identity confirmed yes Patient gave verbal consent to have these services billed to their insurance and expressed understanding that co-insurance and deductible may apply: yes Patient was located At home Visited with patient and his son this morning via telephone. Patient is an 84-year-old male who wasrecently admitted to the hospital about a month ago after a fall with CT demonstrating subdural hematoma. Repeat CT appeared stable and patient was discharged. He got a repeat head CT 03/14/2025 demonstrating mild increase of the left frontal subdural collection. No mass effect. 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 Discussed with patient and his son. Has been having some headaches on and off. Will obtain repeat head CT. Continue to hold any anticoagulation. Patient's daughter states he is not on any blood thinners. Do believe patient may also be a good candidate for MMA embolization. Will referto one of our neurovascular partners for consideration of this. documented in this encounter Plan of Treatment Upcoming Encounters Date Type Department Care Team (Late st Contact Info) Description 04/13/2025 1:30 PM CDT Appointment [facility] CT Scan [place] [address] [place] [address] Yvette Lopez PA [address] [place] [address] 05/25/2025 2:20 PM INVAS TECH Office Visit [facility] [address] [place] [address] Arnol Cano MD [address] [place] [address] Scheduled Orders Name Type Priority Associated Diagnoses Orde r Schedule CT HEAD WO CONTRAST Imaging Routine Subdural hematoma (CMS/HCC) 1 Occurrences starting 04/03/2025 until 04/03/2026 documented as of this encounter Visit Diagnoses Diagnosis Subdural hematoma (CMS/HCC)- Primary Subdural hemorrhage documented in this encounter Care Teams Physics Tutor Relationship Specialty Start Date End Date Humera Mayen MD [address] [place] [id number] PCP - General Family Practice 02/22/25 documented as of this encounter
[2025-04-05] VITALS (74 sets, daily range): BP systolic 74–226; BP diastolic 28–160; PULSE 57–96; RESP 3–30; TEMP 36.8–37.9; O2SAT 94–100; BMI 18.2
--- NOTE | 2025-04-05 07:04 | XR_ITS ---
WS: [id number] Portable AP supine chest, 04/05/2025 Clinical Data: dyspnea/cough Comparison: Portable chest, 01/30/2025 Findings: Bilateral pulmonary opacities have increased and probably represent pulmonary edema but pneumonia could be possible. There are calcifications and scarring in the right apex unchanged. There are moderate bilateral pleural effusions. The heart is enlarged. No nodules or masses are seen. The aortic arch and descending thoracic aorta show calcification and tortuosity. There is an endotracheal tube above the verónica. The nasogastric tube appears to end in the fundus of the stomach. There are monitor leads on the chest wall. XR/XR chest 1V portable [id number] Impression: 1. Increasing opacities could represent pulmonary edema and/or superimposed pne umonia. 2. Cardiomegaly, atherosclerosis and bilateral pleural effusions. 3. Satisfactory position of endotracheal tube and nasogastric tube.
--- NOTE | 2025-04-05 07:05 | W.ED.GENADLT ---
HPI - General Adult General: Chief complaint: Cardiac Arrest/CPR Stated complaint: cardiac arrest History of Present Illness: 84-year-old male presents emergency room after cardiac arrest in the field. Patient is intubated ROSC achieved in the field. EMS was called for difficulty breathing by family. Fire department arrived first reported a week pulse and was patient was bradycardic. By time EMS arrived patient had going into cardiac arrest. EMS recorded 12 minutes of total downtime. He was given 2 epi and 1 bicarb. He was given compressions and ventilation he was intubated on the scene. On arrival here patient is intubated has a normal sinus rhythm and is actually hypertensive. EMS reported postcode he was given to push dose epi. Patient has a history of end-stage renal disease he does still make some urine. He had his normal dialysis lately family later reported to me that they had decreased by 1 hour each of his last 2 dialysis runs. Related Data Home Medications ?Medication ?Instructions ?Recorded ?Confirmed allopurinol 100 mg tablet 100 mg PO QPM 10/08/20 04/05/25 calcium acetate 667 mg tablet 667 mg PO BID 10/08/20 04/05/25 carvedilol 25 mg tablet 25 mg PO BID 12/03/23 04/05/25 nifedipine 60 mg tablet,extended 60 mg PO QAM 12/03/23 04/05/25 release 24 hr atorvastatin 40 mg tablet 40 mg PO QPM 08/25/24 04/05/25 trazodone 100 mg tablet 50 mg PO BEDTIME 01/22/25 04/05/25 guaifenesin 600 mg tablet, 600 mg PO BID PRN Congestion 01/30/25 04/05/25 extended release 12 hr (Mucinex) ipratropium 0.5 mg-albuterol 3 mg 3 ml inhalation .Q4-6H PRN 04/05/25 04/05/25 (2.5 mg base)/3 mL nebulization Shortness Of Breath soln Previous Rx's ?Medication ?Instructions ?Recorded levothyroxine 25 mcg tablet 25 mcg PO QAM #30 tabs 02/18/25 sacubitril 24 mg-valsartan 26 mg 1 tab PO BID #60 tabs 02/18/25 tablet (Entresto) Allergies Allergy/AdvReac Type Severity Reaction Status Date / Time No Known Allergies Allergy Verified 08/23/24 13:06 Review of Systems General: Reports: ROS unobtainable due to endotracheal tube PFSH ED PFSH: Medical History Hypertension Tuberculosis Acute exacerbation of CHF (congestive heart failure) NSTEMI (non-ST elevated myocardial infarction) Pleural effusion Elevated troponin ESRD (end stage renal disease) Hyperlipidemia Abnormal stress test COVID-19 Chronic gout Vitamin D deficiency Vitamin B12 deficiency (dietary) anemia History of TIA (transient ischemic attack) Surgical History S/P hemodialysis catheter insertion History of left knee surgery History of right knee surgery Family History Denies family history of Anesthesia complication Bleeding disorder Social History Smoking and tobacco/nicotine status: former use of tobacco/nicotine Alcohol intake: never Substance/Drug Use: never Physical Exam HENMT: COMMON NORMALS: normocephalic and hearing grossly normal bilaterally HEAD & SCALP: normocephalic OTHER: Calcified hematoma in the left lateral supraorbital ridge from previous fall. Resp: COMMON NORMALS: normal respiratory effort, No retractions, No use of accessory muscles and clear to auscultation bilaterally AUSCULTATION: clear to auscultation bilaterally Cardio: COMMON NORMALS: regular rate, regular rhythm and No murmurs present (Cardio) RATE: regular rate RHYTHM: regular rhythm GI: COMMON NORMALS: Soft to palpation and No hepatosplenomegaly present AUSCULTATION: Yes normoactive bowel sounds PALPATION: Yes Soft to palpation, No Tenderness to palpation present (GI), No Guarding due to palpation present (GI) and Yes No hepatosplenomegaly present Extremity: COMMON NORMALS: normal to inspection, capillary refill normal, no clubbing, cyanosis or edema, no calf tenderness and no pedal edema Skin: COMMON NORMALS: no rashes or lesions noted GENERAL SKIN EXAM: no rashes or lesions noted Course Vital Signs: Vital signs: Vital Signs Temperature 100.2 F H 04/05/25 14:48 Pulse Rate 63 04/05/25 15:30 Respiratory Rate 14 04/05/25 15:30 Blood Pressure 193/65 04/05/25 14:48 Pulse Oximetry 98 04/05/25 15:30 Oxygen Delivery Me thod Mechanical Ventil ation 04/05/25 15:30 Oxygen Flow Rate 30 04/05/25 15:30 Fraction of Inspir ed Oxygen 30 04/05/25 15:21 MDM - General Adult Medical Decision Making Initial blood gas actually shows hyperoxygenation he still has some hypercarbia and respiratory acidosis. He is not showing much response we seen a couple of attempts to initiate a breath shortly after transferred from the EMS cot to our gurney. He started on propofol. He was significantly hypertensive likely from the epi that he was given during and postcode he was given 10 mg labetalol and 10 of hydralazine. Chest x-ray showed OG tube in place ET tube was advanced 2 cm and reimaged is appropriate at this time. According to family has not been sick recently complained of difficulty breathing but no chest pain. Discussed Dr. Vergara will admit to ICU consult nephrology. CT head was done and showed patient had a subsequent development of a substantial subdural hematoma with some mild midline shift. Initially the family wanted to transfer the patient. We had made all the arrangements even had [facility] in the department. Family had a change of plans and is now asking to admit here and provide what care we can with the understanding that if his neurologic condition worsens we would not be able to address this problem. They wish for us to do what we are able with the facilities we have here. We had a beatriz discussion that if the patient is worsening of neurologic condition we may not be able to address or transfer in a timely fashion to have any intervention they expressed understanding of this still wish to be admitted here. Medical Records I reviewed the patient's medical records. Lab Data I reviewed the patient's lab results. 04/05/25 07:19 04/05/25 07:19 Radiology Impressions Chest X-Ray 04/05/25 07:04 Impression: 1. Increasing opacities could represent pulmonary edema and/or superimposed pneumonia. 2. Cardiomegaly, atherosclerosis and bilateral pleural effusions. 3. Satisfactory position of endotracheal tube and nasogastric tube. Head CT 04/05/25 07:48 IMPRESSION: 1. LEFT frontal parietal subdural hematoma is new compared to previous with a isodense subacute appearance measuring 1.8 cm in maximum dimension. There are few scattered foci of increased attenuation posteriorly likely more recent blood products and a few prominent vessels 2. Mass effect on the LEFT lateral ventricle with LEFT to RIGHT midline shift measuring 4 to 5 mm. No ventricular entrapment. 3. Basilar cisterns remain patent. Notified Landen Pino DO at 04/05/2025 9:14 AM. Laboratory Results WBC 11.32 10^3/uL (3.29-11.43) 04/05/25 07:19 RBC 3.58 10^6/uL (3.85-5.65) L 04/05/25 07:19 Hgb 10.20 g/dL (11.27-16.99) L 04/05/25 07:19 Hct 34.7 % (37-53) L 04/05/25 07:19 MCV 96.9 fl (82-101) 04/05/25 07:19 MCH 28.5 pg (27-33) 04/05/25 07:19 MCHC 29.4 g/dL (30-55) L 04/05/25 07:19 RDW 16.7 % (12.1-15.1) H 04/05/25 07:19 Plt Count 163 10^3/cmm (157-399) 04/05/25 07:19 MPV 10.6 fL (7.4-10.4) H 04/05/25 07:19 Neut % (Auto) 65.4 % 04/05/25 07:19 Lymph % (Auto) 21.8 % 04/05/25 07:19 Dickson % (Auto) 7.1 % 04/05/25 07:19 Eos % (Auto) 3.2 % 04/05/25 07:19 Baso % (Auto) 0.6 % 04/05/25 07:19 Neut # (Auto) 7.41 10^3/uL (1.8-7.7) 04/05/25 07:19 Lymph # (Auto) 2.5 10^3/uL (0.8-4.8) 04/05/25 07:19 Dickson # (Auto) 0.8 10^3/uL (0.2-0.9) 04/05/25 07:19 Eos # (Auto) 0.4 10^3/uL (0.0-0.8) 04/05/25 07:19 Baso # (Auto) 0.1 10^3/uL (0.0-0.1) 04/05/25 07:19 Nucleated RBC % (auto) 0 % 04/05/25 07:19 Nucleated RBCs # 0.0 /100WBC 04/05/25 07:19 Specimen Type Arterial 04/05/25 08:09 Sample Site Radial, right 04/05/25 08:09 ABG pH 7.34 (7.35-7.45) L 04/05/25 08:09 ABG pCO2 56.8 mmHg (35-45) H 04/05/25 08:09 ABG pO2 77.8 mmHg (80.0-100.0) L 04/05/25 08:09 ABG PO2/FiO2 Ratio 172 04/05/25 08:09 ABG HCO3 30.5 mmol/L (22-26) H 04/05/25 08:09 ABG O2 Saturation 95.2 04/05/25 08:09 ABG Base Excess 3.8 mmol/L (-2.0-2.0) H 04/05/25 08:09 Abisai Test Pos 04/05/25 08:09 A-a O2 Gradient 22.8 mmHg (5-10) H 04/05/25 08:09 Hematocrit 31.2 % (42-52) L 04/05/25 08:09 Hgb O2 Saturation 93.0 % (95-100) L 04/05/25 08:09 Carboxyhemoglobin 1.2 %THgb (0.4-20.1) 04/05/25 08:09 Methemoglobin 1.2 % (0.4-1.5) 04/05/25 08:09 Total Hemoglobin 10.2 g/dL (14-18) L 04/05/25 08:09 Sodium 145.0 mmol/L (131-143) H 04/05/25 08:09 Potassium 4.3 mmol/L (3.5-5.0) 04/05/25 08:09 Glucose 177.0 mg/dL (70-115) H 04/05/25 08:09 Ionized Calcium 1.2 mmol/L (1.1-1.4) 04/05/25 08:09 O2 Delivery Device Vent 04/05/25 08:09 O2 Liters/Min 18.0 % 04/05/25 07:16 FiO2 45.0 % 04/05/25 08:09 Tidal Volume 0.54 04/05/25 08:09 PEEP 5.0 cmH20 04/05/25 08:09 Handyman ID Le 04/05/25 08:09 Sodium 145 mmol/L (136-145) 04/05/25 07:19 Potassium 4.2 mmol/L (3.5-5.1) 04/05/25 07:19 Chloride 100 mmol/L (98-107) 04/05/25 07:19 Carbon Dioxide 27 mmol/L (22-29) 04/05/25 07:19 Anion Gap 22.2 (5-19) H 04/05/25 07:19 BUN 31 mg/dL (8-23) H 04/05/25 07:19 Creatinine 5.7 mg/dL (0.7-1.2) H* 04/05/25 07:19 GFR Calculation Not Reportable 04/05/25 07:19 Glucose 213 mg/dL (65-115) H 04/05/25 07:19 Calculated Osmolality 313 mOsm/kg (285-295) H 04/05/25 07:19 Calcium 8.6 mg/dL (8.5-10.5) 04/05/25 07:19 Phosphorus 6.9 mg/dL (2.5-4.5) H 04/05/25 07:19 Magnesium 2.2 mg/dL (1.7-2.3) 04/05/25 07:19 Total Bilirubin 0.4 mg/dL (0.15-1.2) 04/05/25 07:19 AST 62 U/L (0-40) H 04/05/25 07:19 ALT 32 U/L (0-41) 04/05/25 07:19 Alkaline Phosphatase 201 U/L (40-130) H 04/05/25 07:19 Troponin T Baseline 148 ng/L (0-15) H* 04/05/25 07:19 Troponin T 120 Minute 131.1 ng/L (0-15) H 04/05/25 09:22 Delta Troponin T -16.9 ABS# (0-10) L 04/05/25 09:22 Total Protein 6.1 g/dL (6.6-8.7) L 04/05/25 07:19 Albumin 3.5 g/dL (3.5-5.2) 04/05/25 07:19 Globulin 2.6 g/dL (1.3-4.6) 04/05/25 07:19 Lipase 53 U/L (13-60) 04/05/25 07:19 TSH 11.34 uIU/mL (0.27-4.20) H 04/05/25 07:19 Urine Color Yellow (Yellow) 04/05/25 07:15 Urine Appearance Cloudy (CLEAR) A 04/05/25 07:15 Urine pH 6.5 (5-7) 04/05/25 07:15 Ur Specific [place] 1.017 (1.005-1.030) 04/05/25 07:15 Urine Protein 3+ (Negative) A 04/05/25 07:15 Urine Glucose (UA) Trace (Normal) H 04/05/25 07:15 Urine Ketones Trace (Negative) 04/05/25 07:15 Urine Blood 1+ (Negative) A 04/05/25 07:15 Urine Nitrate Negative (Negative) 04/05/25 07:15 Urine Bilirubin Negative (Negative) 04/05/25 07:15 Urine Urobilinogen 0.2 mg/dL (Negative) 04/05/25 07:15 Ur Leukocyte Esterase 1+ (Negative) A 04/05/25 07:15 Urine RBC 21-50 /hpf (0-2) H 04/05/25 07:15 Urine WBC 11-20 /hpf (0-5) H 04/05/25 07:15 Ur Squamous Epith Cells 0-5 /hpf (0-5) 04/05/25 07:15 Amorphous Sediment Not Reportable 04/05/25 07:15 Urine Bacteria None seen /hpf (NONE) 04/05/25 07:15 Hyaline Casts 28.13 /lpf 04/05/25 07:15 Hep Bs Antigen Non-reactive (Nonreactive) 04/05/25 07:19 Hep Bs Antibody 105.4 (11.5-1000) 04/05/25 07:19 Hepatitis C Antibody Non-reactive (Nonreactive) 04/05/25 07:19 Influenza A (PCR) Negative (Negative) 04/05/25 07:58 Influenza Type B (PCR) Negative (Negative) 04/05/25 07:58 RSV (PCR) Negative (Negative) 04/05/25 07:58 SARS-CoV-2 (PCR) Negative (Negative) 04/05/25 07:58 All radiology interpretation(s) finalized by discharge Discharge Plan Discharge Patient Disposition: Admitted As Inpatient Admit Provider: Dewey Vergara Clinical Impression: Cardiac arrest, Congestive heart failure (CHF), Aortic valve stenosis, End stage renal disease on dialysis Condition: Stable Coding Level of Care Code ED Devops Developer for Eloy Pike
--- NOTE | 2025-04-05 07:11 | ECG_ITS ---
[facility] Test Date: 2025-04-05 Pat Name: Fermin Patel Department: Room: Gender: Male Sock Mender: : 1940 Requested By: Landen Palacios Order Number: [id number] Moraima MD: Jovita Infante M.D. Measurements Intervals [place] Rate: 79 P: 15 MN: 155 QRS: 95 QRSD: 162 T: 50 QT: 437 QTc: 503 Interpretive Statements SINUS RHYTHM BORDERLINE RIGHT AXIS DEVIATION [QRS AXIS > 90] INTRAVENTRICULAR CONDUCTION DELAY [130+ ms QRS DURATION] Compared to ECG 02/22/2025 10:23:04 Intraventricular conduction delay now present Right bundle-branch block no longer present Electronically Signed On 04-06-2025 15:25:59 CDT by Jovita Infante M.D. [email or web address]
--- OUTSIDE RECORDS SUMMARY | 2025-04-05 07:15 | XMS_ITS | Clinical Summary ---
Author Organization [facility] Address [address] [place] [address] Phone Care Team Providers Care Horticulture Teacher Name Role Phone Humera Mayen MD Primary Care Provider Allergies Active Allergy Reactions Criticality Noted Date [...] Active Problems Problem Noted Date Diagnosed Date Subarachnoid hematoma 02/23/2025 Protein-calorie malnutrition, severe 02/23/2025 Subarachnoid hemorrhage foll owing injury, no loss of consciousness 02/22/2025 Complex laceration of eyebrow, left, initial enc ounter 02/22/2025 Fall 02/22/2025 Hypoxia 02/10/2023 Essential hypertension 02/09/2023 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 02/09/2023 Melena 02/07/2023 Acute blood loss anemia 02/07/2023 ESRD (end stage renal disease) on dialysis 02/07 Acute upper GI bleed 02/07/2023 Encounters Date Type Department Care Team Description 04/03/2025 9:30 AM CDT Telephone Check Up [facility] Spine Neurosurgery [place] [address] [place] [phone] Yvette Lopez PA Subdural hematoma (CMS/HCC) (Primary Dx) 03/27/2025 External Device Data STL ABSTRACTION Provider, Abstract 03/19/2025 Orders Only [facility] Spine Neurosurgery [place] [address] [place] [phone] Yvette Lopez PA Subarachnoid hemorrhage following injury, no loss of consciousness, sequela (Primary Dx); Subarachnoid hematoma with loss of consciousness, initial encounter (CMS/HCC) 03/14/2025 10:40 AM CDT - 03/14/2025 11:59 PM CDT Hospital Encounter [facility] CT Scan [place] [address] [place] [phone] Yvette Lopez PA Discharge Disposition: Home or Self Care 03/12/2025 9:40 AM CDT Office Visit [facility] General and Trauma Surgery[address] [place] [phone] Cris Hazel NP ERRONEOUS ENCOUNTER--DISREGARD (Primary Dx) 03/05/2025 Telephone [facility] [place] [facility] [place] [address] [place] [phone] Gtb, [facility] 03/02/2025 Orders Only [facility] Spine Neurosurgery [place] [address] [place] [phone] Yvette Lopez PA SAH (subarachnoid hemorrhage) (CMS/HCC) (Primary Dx) 03/01/2025 Abstract [facility] Neurosurgery [place] [address] [place] [phone] Renée Clancy PA 02/28/2025 External Device Data STL ABSTRACTION Provider, Abstract 02/27/2025 External Device Data STL ABSTRACTION Provider, Abstract 02/27/2025 External Device Data STL ABSTRACTION Provider, Abstract 02/22/2025 1:16 PM CDT - 02/23/2025 7:33 PM CDT Hospital Encounter [facility] [place] [facility] Neuro [facility] [address] [place] [phone] Orion Valle DO Zguri, Liridon, MD Dailey, Zachariah, MD Subarachnoid hemorrhage following injury, no loss of consciousness Discharge Disposition: Home or Self Care 02/22/2025 Travel 02/19/2025 Telephone [facility] Gen Spec Surg [place] [address] [place] [phone] Shayne Merchant MD Surgery 01/16/2025 External Device Data STL ABSTRACTION Provider, Abstract from Last 3 Months Social History Tobacco Use Types Packs/Day Years Used Date Smoking Tobacco: Former Cigarettes Tobacco Cessation:Counseling Given: No Alcohol Use Standard Drinks/Week Comments Yes 0 [...] Sign Reading Time Taken Comments Blood Pressure 136/80 03/12/2025 9:23 AM CDT On BP that he dont take daily due to it going up and down Pulse 57 03/12/2025 9:23 AM CDT Temperature 36.7 C (98.1 F) 02/23/2025 3:00 PM CDT Respiratory Rate 26 02/23/2025 6:15 PM CDT Oxygen Saturation 93% 03/12/2025 9:2 3 AM CDT Inhaled Oxygen Concentration - - Weight 61.2 kg (135 lb) 03/12/2025 9:23 AM CDT Height 182.9 cm (6') 03/12/2025 9:23 AM CDT Body Mass Index 18.31 03/12/2025 9:23 AM CDT Plan of Treatment Upcoming Encounters Date Type Department Care Team (Late st Contact Info) Description 04/13/2025 1:30 PM CDT Appointment [facility] CT Scan [place] [address] [place] [address] Yvette Lopez PA [address] [place] [address] 05/25/2025 2:20 PM 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 Office Visit [facility] Neurosurgery [place] [address] [place] [address] Arnol Cano MD [address] [place] [address] Health Maintenance Due Date Last Done Comments DTAP/TDAP/TD VACCINES (1 - Tdap) 1959 PNEUMOCOCCAL VACCINE 50+ YEARS (1 of 1 - PCV) 04/11/19 89 ZOSTER VACCINE (1 of 2) 1989 RSV VACCINE (60+ or ) (1 - 1-dose 75+ series) 2014 INFLUENZA VACCINE (#1) 2025 Procedures Procedure Name Priority Date/Time Associated Diagnosis Comments CT HEAD WO CONTRAST Routine 03/14/2025 1 0:57 AM CDT SAH (subarachnoid hemorrhage) TELEMETRY REPORT 02/27/2025 8:[address] HEAD WO CONTRAST Pending Discharge 02/23/2025 3:31 PM CDT COMPREHENSIVE METABOLIC PANEL Routine 02/23/2025 2:06 AM CDT CBC WITH DIFFERENTIAL Routine 02/23/2025 2:06 AM CDT COMPREHENSIVE METABOLIC PANEL Stat 02/22/2025 2:14 PM CDT CBC WITH DIFFERENTIAL Stat 02/22/2025 2:14 PM CDT from Last 3 Months Results * CT HEAD WO CONTRAST (03/14/2025 10:57 AM CDT) Only the most recent of2 resultswithin the time period is included. Anatomical Region Laterality Modality Head Computed Tomogra phy 03/14/2025 10:3 8 AM CDT Impressions 03/14/2025 12:58 PM CDT IMPRESSION: 1. Left frontal subdural collection has mildly enlarged from the prior examination, indeterminate for chronic subdural hematoma and/or hygroma. Given the interval enlargement, continued surveillance is suggested to ensure resolution. Mass effect remains relatively limited due to underlying atrophy, with at most 2 mm of midline shift. 2. 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 3. Similar appearance of large left supraorbital scalp hematoma. Surrounding edema has improved. Narrative 03/14/2025 12:58 PM CDT EXAM: CT HEAD WO CONTRAST DATE/TIME OF EXAM: 03/14/2025 10:57 AM REASON FOR STUDY: Subarachnoid hemorrhage (SAH) DIAGNOSIS: SAH (subarachnoid hemorrhage) COMPARISON: February 23, 2025. TECHNIQUE: CT head performed without contrast. FINDINGS: Low attenuation left-sided subdural collection is mildly increased in volume to the prior examination, measuring up to approximately 7 mm in thickness over the frontal convexity. Attenuation remains low but not CSF attenuation. No hyperdense component to suggest recent hemorrhage. Mild lywu-or-bfsld midline shift of up to 2 mm. No hydrocephalus. Hypodensities in the periventricular white matter are nonspecific but compatible with mild microangiopathic changes. Chronic focal infarct in the left cerebellar hemisphere. Chronic focal infarct in the left basal ganglia. Global parenchymal atrophy is moderate. Large left supraorbital scalp hematoma is similar to the prior examination, measuring up to 3.5 cm in diameter. Surrounding edema has improved. Evidence of left ocular lens replacement. The imaged portions of the paranasal sinuses and mastoid air cells are essentially clear. Procedure Note DeuceJosé MD - 03/14/2025 EXAM: CT HEAD WO CONTRAST DATE/TIME OF EXAM: 03/14/2025 10:57 AM REASON FOR STUDY: Subarachnoid hemorrhage (SAH) DIAGNOSIS: SAH (subarachnoid hemorrhage) COMPARISON: February 23, 2025. TECHNIQUE: CT head performed without contrast. FINDINGS: Low attenuation left-sided subdural collection is mildly increased in volume to the prior examination, measuring up to approximately 7 mm in thickness over the frontal convexity. Attenuation remains low but not CSF attenuation. No hyperdense component to suggest recent hemorrhage. Mild wlnu-lj-rcjja midline shift of up to 2 mm. No hydrocephalus. Hypodensities in the periventricular white matter are nonspecific but compatible with mild microangiopathic changes. Chronic focal infarct in the left cerebellar hemisphere. Chronic focal infarct in the left basal ganglia. Global parenchymal atrophy is moderate. Large left supraorbital scalp hematoma is similar to the prior examination, measuring up to 3.5 cm in diameter. Surrounding edema has improved. Evidence of left ocular lens replacement. The imaged portions of the paranasal sinuses and mastoid air cells are essentially clear. IMPRESSION: 1. Left frontal subdural collection has mildly enlarged from the prior examination, indeterminate for chronic subdural hematoma and/or hygroma. Given the interval enlargement, continued surveillance is suggested to ensure resolution. Mass effect remains relatively limited due to underlying atrophy, with at most 2 mm of midline shift. 2. 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 3. Similar appearance of large left supraorbital scalp hematoma. Surrounding edema has improved. us Yvette SORENSON CT ORDERABLES Final Result * TELEMETRY REPORT (02/27/2025 8:42 AM CDT) us Provider Scanning ECG ORDERABLES Final Result * (ABNORMAL) CBC WITH DIFFERENTIAL (02/23/2025 2:06 AM [facility]) Only the most recent of2 resultswithin the time period is included. WBC 6.9 4.8 - 10.8 K/uL 02/23/2025 2:36 AM [facility] RBC 3.16(L) 4.60 - 6.20 M/uL 02/23/2025 2:36 AM [facility] HEMOGLOBIN 9.2(L) 14.0 - 18.0 g/dL 02/23/2025 2:36 AM [facility] HEMATOCRIT 29.7(L) 41.0 - 53.0 % 02/23/2025 2:36 AM [facility] MCV 94.0 84.0 - 103.0 fL 02/23/2025 2:36 AM [facility] MCH 29.1 27.0 - 34.0 pg 02/23/2025 2:36 AM [facility] MCHC 31.0 30.0 - 35.0 g/dL 02/23/2025 2:36 AM [facility] PLATELETS 170 140 - 440 K/uL 02/23/2025 2:36 AM [facility] MPV 10.9 8.9 - 12.8 fL 02/23/2025 2:36 AM [facility] RDW 15.0(H) 11.0 - 14.5 % 02/23/2025 2:36 AM [facility] RDW-STDEV 51.8 37.0 - 54.0 fL 02/23/2025 2:36 AM [facility] NEUTROPHILS 68 42 - 75 % 02/23/2025 2:36 AM [facility] LYMPHOCYTES 14(L) 24 - 44 % 02/23/2025 2:36 AM [facility] MONOCYTES 15(H) 2 - 10 % 02/23/2025 2:36 AM [facility] EOSINOPHILS 2 0 - 7 % 02/23/2025 2:36 AM CDT [facility] BASOPHILS 1 0 - 1 % 02/23/2025 2:36 AM CDT [facility] IMMATURE GRANULOCYTES 0 0 - 2 % 02/23/2025 2:36 AM CDT [facility] NEUTROPHIL ABSOLUTE 4.70 2.00 - 8.00 K/uL 02/23/2025 2:36 AM CDT [facility] LYMPHOCYTE ABSOLUTE 0.98(L) 1.20 - 4.00 K/uL 02/23/2025 2:36 AM CDT [facility] MONOCYTE ABSOLUTE 1.04(H) 0.10 - 0.60 K/uL 02/23/2025 2:36 AM CDT [facility] EOSINOPHIL ABSOLUTE 0.10 0.00 - 0.70 K/uL 02/23/2025 2:36 AM CDT [facility] BASOPHILS ABSOLUTE 0.04 0.00 - 0.20 K/uL 02/23/2025 2:36 AM CDT [facility] IMMATURE GRANULOCYTES ABSOLUTE 0.03 0.00 - 0.10 K/uL 02/23/2025 2:36 AM CDT [facility] SMEAR REVIEWED: NA - Not Applicable 02/23/2025 2:36 AM CDT [facility] Blood Venipuncture / Unknown 02/23/2025 2:06 AM CDT 02/23/2025 2:30 AM CDT us Abril Rodriguez MD HEMATOLOGY ORDERABLES Final Res ult [facility] CLIA # [id number] [address] [place] [address] [place] [address] * (ABNORMAL) COMPREHENSIVE METABOLIC PANEL (02/23/2025 2:06 AM CDT) Only the most recent of2 resultswithin the time period is included. [facility] SODIUM 138 136 - 145 mmol/L 02/23/2025 3:14 AM [facility] POTASSIUM 3.5 3.5 - 5.1 mmol/L 02/23/2025 3:14 AM [facility] CHLORIDE 99 98 - 107 mmol/L 02/23/2025 3:14 AM [facility] CO2 28 22 - 29 mmol/L 02/23/2025 3:14 AM [facility] CALCIUM 8.9 8.8 - 10.2 mg/dL 02/23/2025 3:14 AM [facility] BUN 17 8 - 23 mg/dL 02/23/2025 3:14 AM [facility] CREATININE 3.72(H) 0.67 - 1.17 mg/dL 02/23/2025 3:14 AM [facility] Comment:The GFR result is no t clinically significant on patients <18 or >70 years of age. GLUCOSE 114(H) 74 - 99 mg/dL 02/23/2025 3:14 AM [facility] TOTAL PROTEIN 6.7 6.4 - 8.3 g/dL 02/23/2025 3:14 AM [facility] ALBUMIN 3.4(L) 3.5 - 5.2 g/dL 02/23/2025 3:14 AM [facility] BILIRUBIN TOTAL 0.3 0.0 - 1.0 mg/dL 02/23/2025 3:14 AM [facility] ALKALINE PHOSPHATASE 98 40 - 129 U/L 02/23/2025 3:14 AM [facility] AST 17 10 - 50 U/L 02/23/2025 3:14 AM [facility] ALT 8 <=50 U/L 02/23/2025 3:14 AM [facility] GFR 15 mL/min/1. 73 sq meter 02/23/2025 3:14 AM [facility] Comment:eGFR calculated with 2020 CKD-EPI equation. Vegetarian diet, extremely high or low muscle mass, and may affect results. Cystatin C with Glomerular Filtration Rate is a suitable alternative for these patients. ANION GAP 11 9 - 20 mmol/L 02/23/2025 3:14 AM CDT [facility] Blood Venipuncture / Unknown 02/23/2025 2:06 AM CDT 02/23/2025 2:31 AM CDT us Abril Rodriguez MD CHEMISTRY ORDERABLES Final Resu lt [facility] CLIA # [id number] [address] [address] [place] [address] from Last 3 Months Insurance MEDICARE PART A HOSPITAL ONLY [place] [employer] * Guarantor: [employer]) Account Type Relation to Patient Date of Phone Billing Address Corporate Other DEFAULT ADDRESS [place] [id number] [facility] [employer] * Guarantor: [facility] L (C) Account Type Relation to Patient Date of Phone Billing Address Corporate Other DEFAULT ADDRESS [place] [id number] [facility] [employer] Advance Directives For more information, please contact: [phone] * Full Code (Latest Code Status on File) Date Activated Date Inactivated Comments 02/23/2025 2:17 PM 02/23/2025 9:33 PM * Default Full Code - Needs Discussion Date Activated Date Inactivated Comments 02/22/2025 3:29 PM 02/23/2025 2:17 PM * Full Code Date Activated Date Inactivated Comments 02/07/2023 1:45 AM 02/10/2023 2:02 PM Care Teams Horticulture Teacher Relationship Specialty Start Date End Date Humera Mayen MD [address] [place] [phone] PCP - General Family Practice 02/22/25
[2025-04-05 07:23] LABS: Hematocrit 34.7 % (37-53); Hemoglobin 10.20 g/dL (11.27-16.99); Mean Corpuscular HGB Conc 29.4 g/dL (30-55); Mean Corpuscular Hemoglobin 28.5 pg (27-33); Mean Corpuscular Volume 96.9 fl (82-101); Nucleated Red Blood Cells % 0 %; Platelet Count 163 10^3/cmm (157-399); Red Blood Count 3.58 10^6/uL (3.85-5.65); White Blood Count 11.32 10^3/uL (3.29-11.43)
[2025-04-05] MEDS: hyDRALAzine 20 mg/mL INJ 1 mL 10 MG IVP (07:24)
[2025-04-05] MEDS: calcium gluconate 0.1 gm/mL 10% SDV 10mL 1 GM IVP (07:25)
[2025-04-05] MEDS: labetalol 5 mg/mL SDV 20mL 10 MG IVP (07:25)
[2025-04-05 07:26] LABS: ABG PH Result 7.25 (7.35-7.45); Alveolar-Arterial Oxygen Gradi 39.3 mmHg (5-10); Arterial Blood Gas Hematocrit 31.5 % (42-52); Blood Gas Allen Test Pos; Blood Gas LPM 18.0 %; Blood Gas Operator Identificat glc; Blood Gas Sample Site Radial, left; Blood Gas Sample Type Arterial; Carboxyhemoglobin 1.0 %THgb (0.4-20.1); Glucose Level-ABG 216.0 mg/dL (70-115); HCO3 ABG 29.2 mmol/L (22-26); Ionized Calcium Level - ABG 1.3 mmol/L (1.1-1.4); Methemoglobin 1.2 % (0.4-1.5); Oxygen Saturation ABG > 99.1; PO2 ABG 328.0 mmHg (80.0-100.0); PO2 FiO2 Ratio Arterial Blood 328; Potassium Level - ABG 4.0 mmol/L (3.5-5.0); Sodium Level - ABG 146.0 mmol/L (131-143)
--- NOTE | 2025-04-05 07:36 | PC.RESP ---
pt arrived by ems already intubated with a 7.0 tube, 21cm @ top lip.
[2025-04-05 07:41] LABS: ABG PCO2 67.3 mmHg (35-45)
[2025-04-05 07:45] LABS: Alanine Aminotransferase 32 U/L (0-41); Albumin Level 3.5 g/dL (3.5-5.2); Alkaline Phosphatase 201 U/L (40-130); Anion Gap 22.2 (5-19); Aspartate Amino Transferase 62 U/L (0-40); Blood Urea Nitrogen 31 mg/dL (8-23); Calcium 8.6 mg/dL (8.5-10.5); Carbon Dioxide 27 mmol/L (22-29); Chloride 100 mmol/L (98-107); Creatinine Clr Calc Pharmacy 8.0240; Globulin 2.6 g/dL (1.3-4.6); Glucose 213 mg/dL (65-115); Lipase 53 U/L (13-60); Magnesium 2.2 mg/dL (1.7-2.3); Osmolality Calculated 313 mOsm/kg (285-295); Potassium 4.2 mmol/L (3.5-5.1); Sodium 145 mmol/L (136-145); Total Protein 6.1 g/dL (6.6-8.7)
[2025-04-05] MEDS: propofol 1,000 MG/100 ML INJ 1.8 MG IV (07:47)
--- NOTE | 2025-04-05 07:48 | CT_ITS ---
WS: [id number] CT HEAD TECHNIQUE: Noncontrast CT of the head obtained from the skullbase to the vertex. CLINICAL INFORMATION: Postcardiac arrest COMPARISON: 02/22/2025 DLP: 1102.[address] scans at [facility] use at least one of these dose optimization techniques: automated exposure control; mA and/or kV adjustment per patient size (includes targeted exams where dose is matched to clinical indication); or iterative reconstruction. FINDINGS: LEFT frontal subdural hematoma is new since 02/22/2025 with mainly iso- attenuation products. This measures approximately 1.8 cm in maximal transverse dimension. Significant mass effect on the LEFT frontal lobe and LEFT lateral ventricle. LEFT to RIGHT midline shift measures 4 to 5 mm. A few tiny foci of increased attenuation layering posteriorly likely more recent blood products in a few prominent vessels. No ventricular entrapment. Suprasellar cistern and basilar cisterns remain patent. Vascular calcification. Tiny chronic lacunar infarct LEFT basal ganglia. Moderate small vessel changes. Moderate parenchymal volume loss. Chronic lacunar infarct LEFT cerebellum. Vascular calcification. Paranasal sinuses and mastoid air cells are well aerated. LEFT frontal soft tissue hematoma decreased in size since 02/22/2025. CT/CT head wo con* [id number] IMPRESSION: 1. LEFT frontal parietal subdural hematoma is new compared to previous with a isodense subacute appearance measuring 1.8 cm in maximum dimension. There are f ew scattered foci of increased attenuation posteriorly likely more recent blood products and a few prominent vessels 2. Mass effect on the LEFT lateral ventricle with LEFT to RIGHT midline shift measuring 4 to 5 mm. No ventricular entrapment. 3. Basilar cisterns remain patent. Notified Landen Pino DO at 04/05/2025 9:14 AM.
--- NOTE | 2025-04-05 07:50 | PC.PHAR ---
[facility] 04/05/25 7:50am
[2025-04-05 07:57] LABS: Troponin(5th) Baseline 148 ng/L (0-15)
[2025-04-05 08:19] LABS: ABG PCO2 56.8 mmHg (35-45); ABG PH Result 7.34 (7.35-7.45); Alveolar-Arterial Oxygen Gradi 22.8 mmHg (5-10); Arterial Blood Gas Hematocrit 31.2 % (42-52); Blood Gas Allen Test Pos; Blood Gas Operator Identificat WALCI; Blood Gas Sample Site Radial, right; Blood Gas Sample Type Arterial; Blood Gas Tidal Volume 0.54; Carboxyhemoglobin 1.2 %THgb (0.4-20.1); Glucose Level-ABG 177.0 mg/dL (70-115); HCO3 ABG 30.5 mmol/L (22-26); Ionized Calcium Level - ABG 1.2 mmol/L (1.1-1.4); Methemoglobin 1.2 % (0.4-1.5); Oxygen Saturation ABG 95.2; PEEP 5.0 cmH20; PO2 ABG 77.8 mmHg (80.0-100.0); PO2 FiO2 Ratio Arterial Blood 172; Potassium Level - ABG 4.3 mmol/L (3.5-5.0); Sodium Level - ABG 145.0 mmol/L (131-143)
[2025-04-05 08:47] LABS: Respiratory Syncytial Virus Ce NEGATIVE (Negative); SARS-CoV-2 PCR NEGATIVE (Negative)
--- NOTE | 2025-04-05 09:01 | PC.PHAR ---
Pt is [facility] this am 04/05/25. It is unknown when he last took any medications.
--- NOTE | 2025-04-05 09:05 | ECG_ITS ---
[employer] Test Date: 2025-04-05 Pat Name: Fermin Patel Department: Room: Gender: Male Civil Attorney: : 1940 Requested By: Landen Palacios Order Number: [id number] Moraima MD: Jovita Infante M.D. Measurements Intervals [place] Rate: 60 P: -28 WI: 134 QRS: 60 QRSD: 153 T: 27 QT: 484 QTc: 486 Interpretive Statements SINUS RHYTHM INTRAVENTRICULAR CONDUCTION DELAY [130+ ms QRS DURATION] Compared to ECG 04/05/2025 07:11:35 No significant changes Electronically Signed On 04-06-2025 15:30:07 CDT by Jovita Infante M.D. [id number]
[2025-04-05 09:08] LABS: Hepatitis B Surface Antigen Non-Reactive (Nonreactive)
--- NOTE | 2025-04-05 09:09 | USCV_ITS ---
Fermin Patel Age: 84 Gender: M : 1940 Exam Date: 04/05/2025 09:36 Ordering Phys: Dewey Vergara MD Technologist: WENDY Exam Location: [facility] Indication: Assess EF, RV Function, and AV (w/color) BP: 127 / 57 HR: 56 Rhythm: Sinus Technical Quality: Adequate MEASUREMENTS (Male / Female) Normal Values 2D ECHO LV Diastolic Diameter PLAX 4.6 cm 4.2 - 5.9 / 3.9 - 5.3 cm IVS Diastolic Thickness 1.3 cm 0.6 - 1.0 / 0.6 - 0.9 cm IVS Systolic Thickness 1.3 cm LVPW Diastolic Thickness 1.1 cm 0.6 - 1.0 / 0.6 - 0.9 cm LVPW Systolic Thickness 1.5 cm LVOT Diameter 2.0 cm LV Ejection Fraction 2D Teich 16.1 % LV Ejection Fraction MOD 4C 57.4 % LV Ejection Fraction MOD 2C 57.1 % LV Ejection Fraction 2C AL 56.3 % LA Diameter 3.3 cm RA Systolic Volume 4C AL 38.3 ml RA Systolic Volume 4C MOD 37.4 ml LA Sys Volume AL 53.5 cm cubed LA Sys Volume Index AL 30.6 cm cubed/m squared Aorta at Sinotubular Diameter 3.1 cm IVC Diameter 1.7 cm M-MODE LA Ao Ratio MM 1.5 AV Cusp Separation MM 0.6 cm DOPPLER AV Peak Velocity 178.8 cm/s LVOT Peak Velocity 74.0 cm/s AV Area Cont Eq vti 1.3 cm squared AV Area Cont Eq pk 1.3 cm squared FINDINGS Left Ventricle Moderate concentric left ventricular hypertrophy. LV ejection fraction of 55%.no regional wall motion abnormalities. Right Ventricle Normal right ventricular size and systolic function. Right Atrium Normal right atrial size. Left Atrium Normal left atrial size. IA Septum Appears to be intact Mitral Valve Thickened mitral valve. Aortic Valve Thickened aortic valve. Tricuspid Valve No gross abnormalities noted Pulmonic Valve Could not be visualized well Pericardium Trivial pericardial effusion. Left-sided pleural effusion Aorta Normal aortic annulus size. IVC Normal inferior vena cava. CONCLUSIONS Moderate concentric left ventricular hypertrophy. LV ejection fraction of 55%.no regional wall motion abnormalities. Thickened mitral valve. Thickened aortic valve. Trivial pericardial effusion. Left-sided pleural effusion. Compared to the study from 02/21/2025, there may not be a significant change in the 2D finding. Exact comparison is difficult because of the differences in the technical quality Dr Jovita Infante MD [facility] (Electronically Signed) Final Date: 05 April 2025 12:24 S
[2025-04-05 09:13] LABS: Glucose Urine UA Trace (Normal); Nitrate Urine Negative (Negative); Specific Gravity, Urine 1.017 (1.005-1.030)
[2025-04-05 09:48] LABS: UA Slide Review UA Slide Review Perf
[2025-04-05] MEDS: nicardipine 20 MG/200 ML PREMIX 50 MG IV (10:07)
[2025-04-05 10:26] LABS: Troponin 5 2HR 131.1 ng/L (0-15); Troponin 5 2HR Delta -16.9 ABS# (0-10)
--- NOTE | 2025-04-05 10:26 | PC.NURSE ---
[facility] arrived to transport PT. Family decided after [facility] arrival that they did not wish to transfer PT. PT family was educated on possible outcomes for not transferring PT, family states they understand and wish to keep PT in our care.
--- NOTE | 2025-04-05 10:32 | PM.HP ---
Documented by User: ISABEL Petersen STDNT 04/05/25 12:48 Providers/Chief Complaint Admitting Physician: Dewey Vergara MD Primary Care Provider: Humera Mayen MD Chief Complaint: cardiac arrest History of Present Illness Fermin Patel is a 84 year old male with a history of congestive heart failure, end stage renal disease on dialysis, aortic stenosis, transient ischemic attacks, and prior TX who presents via EMS for cardiac arrest. According to his daughter, Amado, and son, Tae, he started having dyspnea at 1700 yesterday after going to the bathroom. His son helped him put on his oxygen nasal cannula but the patient was still short of breath on 5L of oxygen. The patient was left to rest for an unknown amount of time. Patient's son eventually called EMS. Fire department arrived first and reported a weak pulse and bradycardia. Patient had already gone into cardiac arrest when EMS arrived. They report 12 minutes of downtime with manual CPR and machine CPR performed. He was given 2 epinephrine and 1 bicarb. He was intubated on the scene. Upon arrival to the ED patient had a normal sinus rhythm and was hypertensive. EMS reported postcode he was given two push dose epinephrine. His daughter notes that the patient was planning to receive a CT head and be seen by [facility] for prior brain hemorrhage. She reports being told that the patient should not receive any blood thinners. Patient receives dialysis on Wednesday, , and Saturdays. His daughter reports he has better tolerated dialysis his last 2 runs due to reducing to only 2 hours. His son Tae is the designated power of finance attorney. The family wishes to observe and support the patient for 72 hours to assess for spontaneous neurological recovery but agrees to comfort measures in the case of future decompensation. Review of Systems Narrative: ROS unable to be obtained due to intubation and sedation. Medications/Allergies Home Medications ?Medication ?Instructions ?Recorded ?Confirmed ?Last Taken ?Type allopurinol 100 mg tablet 100 mg PO QPM 10/08/20 04/05/25 02/21/25 History calcium acetate 667 mg tablet 667 mg PO BID 10/08/20 04/05/25 02/22/25 History carvedilol 25 mg tablet 25 mg PO BID 12/03/23 04/05/25 02/22/25 History nifedipine 60 mg tablet,extended 60 mg PO QAM 12/03/23 04/05/25 02/22/25 History release 24 hr atorvastatin 40 mg tablet 40 mg PO QPM 08/25/24 04/05/25 02/21/25 History trazodone 100 mg tablet 50 mg PO BEDTIME 01/22/25 04/05/25 02/21/25 History guaifenesin 600 mg tablet, 600 mg PO BID PRN Congestion 01/30/25 04/05/25 Unknown History extended release 12 hr (Mucinex) levothyroxine 25 mcg tablet 25 mcg PO QAM #30 tabs 02/18/25 04/05/25 02/22/25 Rx sacubitril 24 mg-valsartan 26 mg 1 tab PO BID #60 tabs 02/18/25 04/05/25 02/22/25 Rx tablet (Entresto) ipratropium 0.5 mg-albuterol 3 mg 3 ml inhalation .Q4-6H PRN 04/05/25 04/05/25 Unknown History (2.5 mg base)/3 mL nebulization Shortness Of Breath soln Allergies Allergy/AdvReac Type Severity Reaction Status Date / Time No Known Allergies Allergy Verified 08/23/24 13:06 PFSH Acute PFSH: Medical History Hypertension Tuberculosis Acute exacerbation of CHF (congestive heart failure) NSTEMI (non-ST elevated myocardial infarction) Pleural effusion Elevated troponin ESRD (end stage renal disease) Hyperlipidemia Abnormal stress test COVID-19 Chronic gout Vitamin D deficiency Vitamin B12 deficiency (dietary) anemia History of TIA (transient ischemic attack) Surgical History S/P hemodialysis catheter insertion History of left knee surgery History of right knee surgery Family History Denies family history of Anesthesia complication Bleeding disorder Social History Smoking and tobacco/nicotine status: former use of tobacco/nicotine Alcohol intake: never Substance/Drug Use: never Vitals/I&O/Wt Last Vital Signs Pulse 58 L 04/05/25 10:09 Resp 12 04/05/25 10:09 BP 112/56 04/05/25 10:15 Pulse Ox 100 04/05/25 10:09 O2 Del Method Mechanical Ventilation 04/05/25 10:09 FiO2 45 04/05/25 08:33 04/04/25 04/05/25 04/05/25 22:59 06:59 14:59 Intake Total 27.429 / 27.429 Balance 27.429 / 27.429 Weight last 48 hrs Weight 59.874 kg Weight 59.874 kg Physical Exam Narrative: General: ill-appearing thin male currently intubated HEENT: Calcified hematoma in left lateral supraorbital ridge from previous fall. Resp: clear to auscultation bilaterally. Normal respiratory effort supported by assist control ventilator. Cardio: regular rate and rhythm. Grade III/ systolic murmur heard in right 2nd intercostal space. GI: Soft to palpation with no rebound tenderness. Bowel sounds diminished in all quadrants. Extremities: Normal to inspection, radial pulse 1+ in left upper extremity. Skin: Sternal bruising present. Urinary Catheter Management: Sepulveda: Cath Placed During This Visit: yes Urinary Catheter Date of Insertion: 04/05/25 Urinary Catheter Time of Insertion: 07:58 Data 04/05/25 07:19 04/05/25 07:19 Micro: Microbiology 04/05/25 07:33 Gram Stain - Final Sputum - Endotracheal Tube Aspirate 04/05/25 07:38 Blood Culture - Preliminary Blood SPECIMEN COLLECTED 04/05/25 07:34 Blood Culture - Preliminary Blood SPECIMEN COLLECTED A&P Assessment and plan 1. Cardiac arrest: 2. Congestive heart failure (CHF): 3. Aortic valve stenosis: 4. End stage renal disease on dialysis: Plan: 1. Cardiac arrest Plan at this time is to support and monitor recovery of cardiac arrest. Differential at this time includes: - pulmonary embolism - hypervolemia from CHF exacerbation - ischemic cardiomyopathy - cardiac arrhythmia 2. Acute respiratory failure 3. End stage renal disease with dialysis 4. Acute subdural hematoma Plan right now is to mitigate further bleeding by avoiding anticoagulation and maintaining normotension. PDMP PDMP Reviewed: Not Reviewed Attestations Medical Necessity Statement*: support and monitor recovery of cardiac arrest Coding Level of Care Code Critical Care >/= 30 minutes Diagnoses Cardiac arrest I46.9 Congestive heart failure (CHF) I50.9 Aortic valve stenosis I35.0 End stage renal disease on dialysis N18.6; Z99.2 Documented by User: Dewey Vergara MD 04/05/25 13:04 Providers/Chief Complaint Chief Complaint: cardiac arrest History of Present Illness Fermin Patel is a 84 year old male with a history of congestive heart failure, end stage renal disease on dialysis, aortic stenosis, transient ischemic attacks, and prior TX who presents via EMS for cardiac arrest. According to his daughter, Amado, and son, Tae, he started having dyspnea at 1700 yesterday after going to the bathroom. His son helped him put on his oxygen nasal cannula but the patient was still short of breath on 5L of oxygen. The patient was left to rest for an unknown amount of time. Patient's son eventually called EMS. Fire department arrived first and reported a weak pulse and bradycardia. Patient had already gone into cardiac arrest when EMS arrived. They report 12 minutes of downtime with manual CPR and machine CPR performed. He was given 2 epinephrine and 1 bicarb. He was intubated on the scene. Upon arrival to the ED patient had a normal sinus rhythm and was hypertensive. EMS reported postcode he was given two push dose epinephrine. His daughter notes that the patient was planning to receive a CT head and be seen by [facility] for prior brain hemorrhage. She reports being told that the patient should not receive any blood thinners. Patient receives dialysis on Wednesday, , and Saturdays. His daughter reports he has better tolerated dialysis his last 2 runs due to reducing to only 2 hours. Prior with hypotension. His son Tae is the designated power of finance attorney. The family wishes to observe and support the patient for 72 hours to assess for spontaneous neurological recovery but agrees to comfort measures in the case of future decompensation. Review of Systems Narrative: ROS unable to be obtained due to intubation and sedation. No recent unusual or new complaints per family. Medications/Allergies Home Medications ?Medication ?Instructions ?Recorded ?Confirmed ?Last Taken ?Type allopurinol 100 mg tablet 100 mg PO QPM 10/08/20 04/05/25 02/21/25 History calcium acetate 667 mg tablet 667 mg PO BID 10/08/20 04/05/25 02/22/25 History carvedilol 25 mg tablet 25 mg PO BID 12/03/23 04/05/25 02/22/25 History nifedipine 60 mg tablet,extended 60 mg PO QAM 12/03/23 04/05/25 02/22/25 History release 24 hr atorvastatin 40 mg tablet 40 mg PO QPM 08/25/24 04/05/25 02/21/25 History trazodone 100 mg tablet 50 mg PO BEDTIME 01/22/25 04/05/25 02/21/25 History guaifenesin 600 mg tablet, 600 mg PO BID PRN Congestion 01/30/25 04/05/25 Unknown History extended release 12 hr (Mucinex) levothyroxine 25 mcg tablet 25 mcg PO QAM #30 tabs 02/18/25 04/05/25 02/22/25 Rx sacubitril 24 mg-valsartan 26 mg 1 tab PO BID #60 tabs 02/18/25 04/05/25 02/22/25 Rx tablet (Entresto) ipratropium 0.5 mg-albuterol 3 mg 3 ml inhalation .Q4-6H PRN 04/05/25 04/05/25 Unknown History (2.5 mg base)/3 mL nebulization Shortness Of Breath soln Allergies Allergy/AdvReac Type Severity Reaction Status Date / Time No Known Allergies Allergy Verified 08/23/24 13:06 PFSH Acute PFSH: Medical History Hypertension Tuberculosis Acute exacerbation of CHF (congestive heart failure) NSTEMI (non-ST elevated myocardial infarction) Pleural effusion Elevated troponin ESRD (end stage renal disease) Hyperlipidemia Abnormal stress test COVID-19 Chronic gout Vitamin D deficiency Vitamin B12 deficiency (dietary) anemia History of TIA (transient ischemic attack) Surgical History S/P hemodialysis catheter insertion History of left knee surgery History of right knee surgery Family History Denies family history of Anesthesia complication Bleeding disorder Social History Smoking and tobacco/nicotine status: former use of tobacco/nicotine Alcohol intake: never Substance/Drug Use: never Physical Exam Urinary Catheter Management: Sepulveda: Cath Placed During This Visit: yes Data 04/05/25 07:19 04/05/25 07:19 A&P Assessment and plan 1. Cardiac arrest: 2. Congestive heart failure (CHF): 3. Aortic valve stenosis: 4. End stage renal disease on dialysis: Plan: 1. Cardiac arrest 2. Acute respiratory failure 3. End stage renal disease with dialysis 4. Acute subdural hematoma Plan at this time is to support and monitor recovery of cardiac arrest. Differential at this time includes: - pulmonary embolism - hypervolemia from CHF exacerbation - ischemic cardiomyopathy - cardiac arrhythmia I evaluated and examined the patient independently and reviewed and discussed the case with ANNA Baker. Agree with the findings documented above. This is an 84-year-old gentleman with end-stage renal disease (ESRD) on hemodialysis Tue/Wed/Wed, congestive heart failure (CHF), prior ST-elevation myocardial infarction (STEMI), hyperlipidemia (HLD), hypertension, transient ischemic attack (TIA), aortic valve stenosis, and recent pneumonia (discharged 02/18). Family found him down at home with a weak pulse after reporting trouble breathing; he subsequently lost pulse. Emergency medical services (EMS) performed cardiopulmonary resuscitation (CPR) for approximately 12 minutes, administered two epinephrine injections and one sodium bicarbonate, and intubated him; return of spontaneous circulation (ROSC) was achieved. En route/at emergency department, he received two additional epinephrine doses. Initial blood pressure was reported as elevated at 26 over 160 [Unclear]. Electrocardiogram (ECG) showed sinus rhythm with borderline intraventricular conduction delay without evidence of STEMI. Chest x-ray demonstrated mild interstitial edema and chronic bilateral lower-lobe effusions without obvious consolidation (official read pending). Laboratory results: white blood cell (WBC) 11.32 (normal per note), hemoglobin 10.2 (chronic anemia), platelets 163; arterial blood gas (ABG) pH 7.25, PCO2 67.3, PO2 328; sodium 145, potassium 4.2, chloride 100, bicarbonate 27, anion gap 22.2; blood urea nitrogen (BUN) 131, creatinine 5.7, glucose 213; calcium 8.6, phosphorus 6.9, magnesium 2.2; total bilirubin 0.4, aspartate aminotransferase (AST) 62 (minimal elevation), alanine aminotransferase (ALT) 32, alkaline phosphatase 201; troponin baseline 148; lipase 53; albumin 3.5. Influenza, respiratory syncytial virus (RSV), and COVID nasal swabs pending. Family reports he has had shallow breathing and difficulty breathing for some time due to ?fluid in his lungs.? He uses home oxygen; it did not help this morning. Dialysis was ended early last Wednesday due to low blood pressure and heart weakness during the session; he had increased dyspnea that day, improved after rest. He typically walks with a walker but recently used a cane and attempted to walk independently from living room to bedroom. Cough occurs intermittently. He moved into his brother?s home last weekend. There was recent concern from another facility for possible intracranial bleed after a fall, with a head computed tomography (CT) scan being arranged; details remain uncertain. He is currently intubated and sedated with propofol; paralytic/sedatives may have been used during RSI. A&P Cardiac arrest with ROSC : Post-arrest status following [id number] cardiac arrest with ROSC; ECG without STEMI; labs reviewed; pending infectious swabs - negative. Discussion with family regarding code status and goals of care. Initially full code, but after finding of increasing/subdural hematoma, further discussion of options and admission arrangements for transfer for neurosurgical evaluation and management, on consideration of goals of care family further decided to only pursue limited supportive measures here with reevaluation, without invasive intervention or transfer, in case of lack of improvement or deterioration transition to comfort measures. Further CODE STATUS adjusted to okay for ICU admission, without further CPR in case of cardiopulmonary arrest. Reviewed vitals, CBC, ABG, CMP, troponin, lipase, UA, viral studies, chest x-ray, EKG, on my interpretation intraventricular conduction delay, nonspecific T wave changes, without evidence of acute TX, head CT, ED provider note, discussed with ED provider. - Continue ventilator support. Target temperature 37.5C, treat fevers. - Monitor vitals and blood pressures - Intermittently reduce/hold sedation to reassess mental status and neurologic recovery (post?cardiac arrest). Discussed potential for ischemic/anoxic brain injury, pending reassessment, consider prognostication after about 72 hours. - If cardiac arrest recurs, do not perform chest compressions per family discussion (DNR preference confirmed) -SCD vte prophylaxis, no anticoagulation. PPI PPx. Acute respiratory failure requiring mechanical ventilation : Intubated and sedated; ventilator providing respiratory support; chest x-ray suggests interstitial edema and chronic effusions. Possible acute CHF, diastolic with pulmonary edema. - Continue respiratory support in ICU - D/W nephrology -consideration of HD versus CRRT. Discussed concern of risk of hypotension, some prior hypotension with HD in the setting of moderate aortic stenosis. - Follow up chest x-ray official read appearance of interstitial edema and/for pneumonia. Otherwise clinically not suggestive of pneumonia, without fever, leukocytosis, no more cough than usual. Viral panel reviewed, negative. ESRD on hemodialysis with recent intradialytic hypotension : Dialysis schedule Tue/[place]/Sat; recent early termination due to hypotension and heart weakness; nephrology aware. - Nephrology to evaluate and resume hemodialysis versus consider continuous renal replacement therapy (CRRT) (given risk of hypotension and moderate aortic stenosis) Aortic valve stenosis (moderate) : Known moderate aortic stenosis; may contribute to blood pressure fluctuations. - Follow up transthoracic echocardiogram (TTE) to reassess cardiac function and valve after cardiac arrest Congestive heart failure with suspected pulmonary edema : Clinical concern for fluid overload with interstitial edema on imaging; ventilator pressure may aid fluid redistribution. - Manage volume status with dialysis in coordination with nephrology Troponin elevation: Has not had any chest pain or pressure at least that he reported to the family. Complete troponin EKG series. Obtain limited TTE. Monitor telemetry. May be demand ischemia following respiratory failure with worsening hypoxia at home, cardiac arrest and resuscitation. Not a candidate for anticoagulation/antiplatelets. Possible intracranial bleed after recent fall : Family reports prior concern for intracranial bleed; details uncertain; evaluation planned. - Obtain head CT to assess for intracranial hemorrhage CT regarding with worsening subdural hematoma. -On discussion of results by ED provider, initial arrangements for neurosurgical relation and transfer to higher level care facility, however, with further discussion of options and admission arrangements for transfer for neurosurgical evaluation and management, on consideration of goals of care family further decided to only pursue limited supportive measures here with reevaluation, without invasive intervention or transfer, in case of lack of improvement or deterioration transition to comfort measures. Abnormal urinalysis: 21-50 RBC, 11-20 WBC. Was not reporting any urinary symptoms recently, but possibility of urinary tract infection not excluded at this time. Questing urine culture. Assess for possible cystitis as cause of hematuria, otherwise will need to follow-up on hematuria with urology in case no good explanation and/or not resolving to exclude malignancy with his history of smoking. Hyperlipidemia : History noted. Hypertension : History noted; blood pressure fluctuations observed. - Monitor blood pressure PDMP PDMP Reviewed: Not Reviewed Attestations Medical Necessity Statement*: Admission for 2 midnights necessary for further assessment management and support and monitor recovery of cardiac arrest gentleman with underlying ESRD, aortic stenosis, subdural hematoma. Coding Level of Care Code Critical Care >/= 30 minutes Critical care time (in minutes): 50 The high probability of a clinically significant, sudden or life threatening deterioration, as referenced in this documentation, required my full and direct attention, intervention and personal management. The critical care time shown is in addition to time spent performing any reported separately billable procedures and includes the following: [x] Data and vital sign review and interpretation [x] Patient assessment, examination and intervention [x] Medication orders and management [x] Patient/Family updates as able [x] Care Coordination and Documentation. Diagnoses Cardiac arrest I46.9 Congestive heart failure (CHF) I50.9 Aortic valve stenosis I35.0 End stage renal disease on dialysis N18.6; Z99.2
[2025-04-05] MEDS: propofol 1,000 MG/100 ML INJ 19.76 MG IV (13:05)
--- NOTE | 2025-04-05 13:24 | PM.CONSULT ---
Providers/Reason For Consult Consulting Physician/Specialty*: kommana /Nephrology Reason for Consult*: ESRD Attending Physician: Dewey Vergara Primary Care Provider: Humera Mayen MD History of Present Illness History of Present Illness Fermin Patel is a 84 year old male Patient is 84-year-old male with past medical history of congestive cardiac failure, aortic stenosis, history of TIAs, coronary artery disease, end-stage renal disease was brought to the emergency department due to shortness of breath EMS was called and he was noted to be bradycardic but then he went into cardiac arrest and had 12 minutes of downtime with ROSC achieved. In the ED patient was also hypertensive, CT head has showed subdural hematoma. Patient currently intubated Review of Systems Narrative: nagative Medications/Allergies Home Medications ?Medication ?Instructions ?Recorded ?Confirmed ?Last Taken ?Type allopurinol 100 mg tablet 100 mg PO QPM 10/08/20 04/05/25 02/21/25 History calcium acetate 667 mg tablet 667 mg PO BID 10/08/20 04/05/25 02/22/25 History carvedilol 25 mg tablet 25 mg PO BID 12/03/23 04/05/25 02/22/25 History nifedipine 60 mg tablet,extended 60 mg PO QAM 12/03/23 04/05/25 02/22/25 History release 24 hr atorvastatin 40 mg tablet 40 mg PO QPM 08/25/24 04/05/25 02/21/25 History trazodone 100 mg tablet 50 mg PO BEDTIME 01/22/25 04/05/25 02/21/25 History guaifenesin 600 mg tablet, 600 mg PO BID PRN Congestion 01/30/25 04/05/25 Unknown History extended release 12 hr (Mucinex) levothyroxine 25 mcg tablet 25 mcg PO QAM #30 tabs 02/18/25 04/05/25 02/22/25 Rx sacubitril 24 mg-valsartan 26 mg 1 tab PO BID #60 tabs 02/18/25 04/05/25 02/22/25 Rx tablet (Entresto) ipratropium 0.5 mg-albuterol 3 mg 3 ml inhalation .Q4-6H PRN 04/05/25 04/05/25 Unknown History (2.5 mg base)/3 mL nebulization Shortness Of Breath soln Allergies Allergy/AdvReac Type Severity Reaction Status Date / Time No Known Allergies Allergy Verified 08/23/24 13:06 Current Medications Generic Name Dose Route Start Last Admin Trade Name Fiorella PRN Reason Stop Dose Admin Propofol 1,000 mg in 100 mls @ 0 mls/hr 04/05/25 07:30 04/05/25 13:05 Diprivan IV 55 mcg/kg/min .Q0M GUMARO 19.76 mls/hr Protocol Administration Per Protocol PFSH Acute PFSH: Medical History Hypertension Tuberculosis Acute exacerbation of CHF (congestive heart failure) NSTEMI (non-ST elevated myocardial infarction) Pleural effusion Elevated troponin ESRD (end stage renal disease) Hyperlipidemia Abnormal stress test COVID-19 Chronic gout Vitamin D deficiency Vitamin B12 deficiency (dietary) anemia History of TIA (transient ischemic attack) Surgical History S/P hemodialysis catheter insertion History of left knee surgery History of right knee surgery Family History Denies family history of Anesthesia complication Bleeding disorder Social History Smoking and tobacco/nicotine status: former use of tobacco/nicotine Alcohol intake: never Substance/Drug Use: never Vitals/I&O/Wt Last Vital Signs Pulse 66 04/05/25 13:00 Resp 14 04/05/25 13:00 BP 119/51 04/05/25 13:00 Pulse Ox 100 04/05/25 13:00 O2 Del Method Mechanical Ventilation 04/05/25 10:15 FiO2 45 04/05/25 10:44 04/04/25 04/05/25 04/05/25 22:59 06:59 14:59 Intake Total 106.821 / 106.821 Balance 106.821 / 106.821 Weight last 48 hrs Weight 59.874 kg Weight 59.874 kg Physical Exam Narrative: Intubated No distress Urinary Catheter Management: Sepulveda: Cath Placed During This Visit: yes Urinary Catheter Date of Insertion: 04/05/25 Urinary Catheter Time of Insertion: 07:58 Data 04/05/25 07:19 04/05/25 07:19 Micro: Microbiology 04/05/25 07:33 Gram Stain - Final Sputum - Endotracheal Tube Aspirate 04/05/25 07:38 Blood Culture - Preliminary Blood SPECIMEN COLLECTED 04/05/25 07:34 Blood Culture - Preliminary Blood SPECIMEN COLLECTED A&P Assessment and plan 1. End stage renal disease on dialysis: 1. End-stage renal disease: On TTS schedule as outpatient, patient now status post cardiac arrest and has subdural hematoma. Will do gentle HD today with low BFR, avoid hypotension, avoid heparin 2. Acute respiratory failure, intubated 3. Subdural hematoma 4. History of aortic stenosis 5. Hypertension Discussed with hospitalist. Overall poor prognosis due to multiple comorbidities. Plan to continue supportive care and monitor. PDMP PDMP Reviewed: Not Reviewed Consult Attestations Medical Necessity Statement: Per medicine team. Coding Level of Care Code Acute Code for Chg Fwd Diagnoses End stage renal disease on dialysis N18.6; Z99.2
--- NOTE | 2025-04-05 13:39 | PC.HD ---
Per Dr. Rebollar, disregard earlier dialysis orders from this morning (3 hours, 2L removal). New orders for 2.5 hour treatment placed.
[2025-04-05 13:56] LABS: Troponin 5 6HR 181.4 ng/L (0-15); Troponin 5 6HR Delta 33.4 ng/L (0-12)
[2025-04-05 14:08] LABS: Thyroid Stimulating Hormone 11.34 uIU/mL (0.27-4.20)
--- NOTE | 2025-04-05 14:44 | CTR_ITS ---
PROCEDURE INFORMATION: Exam: CTA Chest With Contrast Exam date and time: 04/05/2025 4:03 PM Age: 84 years old Clinical indication: Respiratory failure, assess for PE TECHNIQUE: Imaging protocol: Computed tomographic angiography of the chest with contrast. Exam focused on the arteries. 3D rendering (Not supervised by radiologist): MIP and/or 3D reconstructed images were created by the technologist. Radiation optimization: All CT scans at this facility use at least one of these dose optimization techniques: automated exposure control; mA and/or kV adjustment per patient size (includes targeted exams where dose is matched to clinical indication); or iterative reconstruction. Contrast material: [id number]; Contrast volume: 100 ml; Contrast route: INTRAVENOUS (IV); COMPARISON: CT chest wo con [id number] 02/17/2025 12:32 PM RADIATION DOSE METRICS: Total DLP (mGy-cm): 311.1 FINDINGS: Limitations: Exam is motion limited. Tubes, catheters and devices: Endotracheal tube tip terminates approximately 2.9 cm above verónica. Enteric tube courses into the stomach. Pulmonary arteries: Main pulmonary artery is mildly enlarged. No pulmonary emboli. Aorta: No aortic aneurysm. No aortic dissection. Extensive atherosclerosis. Lungs: consolidative opacities in the bilateral lower lobes, multisegmental in size. Scattered ground-glass opacities involving the upper lobes. Scattered calcified nodules. Pleural spaces: Moderate bilateral pleural effusions. No pneumothorax. Heart: No cardiomegaly. Three-vessel coronary calcifications. Valvular calcifications. No pericardial effusion. Lymph nodes: Unremarkable. No enlarged lymph nodes. Bones/joints: No acute fracture. Remote right rib fractures. Soft tissues: Unremarkable. CT/CT angio chest PE protcl [id number] IMPRESSION: Moderate bilateral pleural effusions. There are multifocal consolidative opacities which may represent atelectasis and/or infection. Scattered ground-glass opacities may be infectious or inflammatory.
--- NOTE | 2025-04-05 14:50 | CTR_ITS ---
PROCEDURE INFORMATION: Exam: CT Abdomen And Pelvis Without Contrast Exam date and time: 04/05/2025 4:03 PM Age: 84 years old Clinical indication: Fever, hypoactive bowel sounds TECHNIQUE: Imaging protocol: Computed tomography of the abdomen and pelvis without contrast. Radiation optimization: All CT scans at this facility use at least one of these dose optimization techniques: automated exposure control; mA and/or kV adjustment per patient size (includes targeted exams where dose is matched to clinical indication); or iterative reconstruction. COMPARISON: CT abdomen pelvis wo con [id number] 02/17/2025 9:59 AM RADIATION DOSE METRICS: Total DLP (mGy-cm): 474.8 FINDINGS: Tubes, catheters and devices: Enteric tube with the tip terminating over the distal stomach. Lungs: Lung bases are reported separately. Liver: Unremarkable unenhanced appearance of the liver. There are few small calcifications which are likely vascular. Gallbladder and biliary ducts: The gallbladder is unremarkable. No calcified stones. No biliary ductal dilation. Pancreas: There is a hypoattenuating lesion in the pancreatic body measuring 1.9 cm, unchanged. No main pancreatic duct dilation. Spleen: No splenomegaly. Adrenal glands: Normal. No mass. Kidneys and ureters: No hydronephrosis. Bilateral renal atrophy. Probable renal cysts. Stomach and bowel: Colonic diverticulosis. No CT findings of acute diverticulitis. No bowel obstruction. Appendix: The appendix is normal. Intraperitoneal space: No free air. No fluid collection. Vasculature: Extensive atherosclerosis. No aortic aneurysm. By femoral bypass grafts. Vascular patency is not evaluated without contrast. Lymph nodes: No lymphadenopathy by CT size criteria. Urinary bladder: The urinary bladder is decompressed around a Sepulveda catheter. Reproductive: Unremarkable as visualized. Bones/joints: Left femoral fixation hardware. No acute fracture. Soft tissues: Soft tissues are unremarkable. CT/CT abdomen pelvis wo con [id number] IMPRESSION: 1. No acute process in the abdomen or pelvis. 2. Unchanged hypoattenuating lesion in the pancreatic body, incompletely evaluated on this noncontrast exam. If definitive characterization is desired, nonemergent pancreas protocol MRI or CT would be needed. 3. Please see separately dictated chest CT for findings in the lungs. COMMENTS: Consistent with the [employer]'s Incidental Findings Committee white paper (J Am Donna Radiol 2018): Any incidental renal lesion less than 1 cm or classified as too small to characterize, or any incidental cystic renal lesion characterized as simple-appearing, is likely benign. No follow-up imaging is recommended for these lesions per consensus recommendations based on imaging criteria.
[2025-04-05] MEDS: cefTRIAXone 1,000 mg SDV 1000 MG IVP (15:07)
[2025-04-05] MEDS: pantoprazole 40 mg SDV IVP (15:07)
[2025-04-05] MEDS: iohexol 350 mg/mL 500 mL Btl (per mL) IV (16:00)
--- NOTE | 2025-04-05 17:11 | XRR_ITS ---
PROCEDURE INFORMATION: Exam: XR Chest Exam date and time: 04/05/2025 5:35 PM Age: 84 years old Clinical indication: PICC line placement TECHNIQUE: Imaging protocol: Radiologic exam of the chest. Views: 1 view. COMPARISON: CT angio chest PE protcl [id number] 04/05/2025 4:03 PM FINDINGS: Tubes, catheters and devices: Endotracheal tube tip terminates approximately 3.8 cm above the verónica. Enteric tube courses below the diaphragm midline with the tip not definitively visualized. Right upper extremity PICC with the catheter tip terminating in the mid to lower SVC. Lungs: Consolidative opacities in the lung bases. Pleural spaces: No pneumothorax. Bilateral pleural effusions. Heart/Mediastinum: Unremarkable. No cardiomegaly. Bones/joints: Unremarkable. XR/XR chest 1V portable [id number] IMPRESSION: 1. Right upper extremity PICC with the catheter tip terminating in the mid to lower SVC. 2. Consolidative opacities in the lung bases may represent infection and/or atelectasis. 3. Bilateral pleural effusions.
[2025-04-05 17:26] LABS: ABG PCO2 43.5 mmHg (35-45); ABG PH Result 7.46 (7.35-7.45); Alveolar-Arterial Oxygen Gradi 11.4 mmHg (5-10); Arterial Blood Gas Hematocrit 28.8 % (42-52); Blood Gas Allen Test Pos; Blood Gas Operator Identificat GD; Blood Gas Sample Site Radial, right; Blood Gas Sample Type Arterial; Carboxyhemoglobin 1.1 %THgb (0.4-20.1); Glucose Level-ABG 88.0 mg/dL (70-115); HCO3 ABG 31.0 mmol/L (22-26); Ionized Calcium Level - ABG 1.1 mmol/L (1.1-1.4); Methemoglobin 1.3 % (0.4-1.5); Oxygen Saturation ABG 95.7; PO2 ABG 72.9 mmHg (80.0-100.0); PO2 FiO2 Ratio Arterial Blood 243; Potassium Level - ABG 3.3 mmol/L (3.5-5.0); Sodium Level - ABG 144.0 mmol/L (131-143)
[2025-04-05 17:27] LABS: Blood Gas Tidal Volume 0.54; PEEP 8.0 cmH20
--- NOTE | 2025-04-05 17:47 | ECG_ITS ---
[employer] Test Date: 2025-04-05 Pat Name: Fermin Patel Department: Room: ICU12 Gender: Male Hunter Trapper: : 1940 Requested By: Landen Palacios Order Number: [id number] Moraima MD: Jovita Infante M.D. Measurements Intervals Glenn Rate: 61 P: -39 MS: 130 QRS: 77 QRSD: 154 T: 34 QT: 490 QTc: 497 Interpretive Statements SINUS RHYTHM INTRAVENTRICULAR CONDUCTION DELAY [130+ ms QRS DURATION] Compared to ECG 04/05/2025 09:00:27 No significant changes Electronically Signed On 04-06-2025 15:28:55 CDT by Jovita Infante M.D. [email or web address] [id number]
[2025-04-05 18:04] LABS: MRSA PCR OZH (swab) MRSA Detected (Negative)
--- NOTE | 2025-04-05 19:13 | PC.HD ---
Dialysis treatment terminated approximately 40 minutes early per truck striker due to BPs trending downwards.
[2025-04-05] MEDS: propofol 1,000 MG/100 ML INJ 14.37 MG IV (19:46)
--- NOTE | 2025-04-05 19:50 | PHA.VACGOAL ---
Vancomycin Goal - Goal Vancomycin Goal:: 10-15 mg/L (Suspect UTI) Vancomycin Indication:: Other - Therapy Day of therpy:: Day []of [] . Actual body weight (kg): 157 lb 13.616 oz - Data Labs: WBC 11.32 10^3/uL (3.29-11.43) 04/05/25 07:19 RBC 3.58 10^6/uL (3.85-5.65) L 04/05/25 07:19 Hgb 10.20 g/dL (11.27-16.99) L 04/05/25 07:19 Hct 34.7 % (37-53) L 04/05/25 07:19 MCV 96.9 fl (82-101) 04/05/25 07:19 MCH 28.5 pg (27-33) 04/05/25 07:19 MCHC 29.4 g/dL (30-55) L 04/05/25 07:19 RDW 16.7 % (12.1-15.1) H 04/05/25 07:19 Sodium 145 mmol/L (136-145) 04/05/25 07:19 Potassium 4.2 mmol/L (3.5-5.1) 04/05/25 07:19 Chloride 100 mmol/L (98-107) 04/05/25 07:19 Carbon Dioxide 27 mmol/L (22-29) 04/05/25 07:19 Anion Gap 22.2 (5-19) H 04/05/25 07:19 BUN 31 mg/dL (8-23) H 04/05/25 07:19 Creatinine 5.7 mg/dL (0.7-1.2) H* 04/05/25 07:19 GFR Calculation Not Reportable 04/05/25 07:19 Last dialysis session:: N/A Treatment plan:: new consult Regimen:: Patient has suspected UTI. Patient on HD. Received dialysis this afternoon. Ordered loading dose of 1000 mg per protocol. Will continue to monitor daily to determine dosing with IHD
[2025-04-05] MEDS: midazolam hcl 100 MG/100 ML BAG IV (21:30)
[2025-04-06] VITALS (100 sets, daily range): BP systolic 82–220; BP diastolic 41–93; PULSE 60–102; RESP 14–34; TEMP 36.7–37.5; O2SAT 87–100; BMI 20.3
--- NOTE | 2025-04-06 00:40 | PC.NURSE ---
Versed: Patient was having what seemed to be seizure like activity or frequent twitches, Dr. Mcbride was contacted and gave telephone orders to started a versed gtt.
[2025-04-06 05:34] LABS: Alanine Aminotransferase 28 U/L (0-41); Albumin Level 3.0 g/dL (3.5-5.2); Alkaline Phosphatase 118 U/L (40-130); Anion Gap 17.9 (5-19); Aspartate Amino Transferase 52 U/L (0-40); Blood Urea Nitrogen 28 mg/dL (8-23); Calcium 8.4 mg/dL (8.5-10.5); Carbon Dioxide 26 mmol/L (22-29); Chloride 102 mmol/L (98-107); Creatinine Clr Calc Pharmacy 11.7234; Globulin 2.9 g/dL (1.3-4.6); Glucose 79 mg/dL (65-115); Osmolality Calculated 298 mOsm/kg (285-295); Potassium 3.9 mmol/L (3.5-5.1); Sodium 142 mmol/L (136-145); Total Protein 5.9 g/dL (6.6-8.7)
[2025-04-06] MEDS: norepinephrine 4 MG/250 ML BAG 18.8 MG (08:40)
[2025-04-06] MEDS: levETIRAcetam 500 MG/100 ML PREMIX 400 MG IV ×2 (09:09→20:40)
--- NOTE | 2025-04-06 10:55 | PC.SOCIAL ---
IMM Update pg 2 of IMM Updated and reviewed w/ patient. Copy provided and copy dated, initialed and placed in chart.
--- NOTE | 2025-04-06 11:23 | PC.NURSE ---
[facility] referral number [id number] Patient remains on ventilator with intermittent twitching/ seizure activity while on versed drip. Drips added propofol.
[2025-04-06] MEDS: pantoprazole 40 mg SDV IVP (13:05)
[2025-04-06] MEDS: cefTRIAXone 1,000 mg SDV 1000 MG IVP (13:05)
--- NOTE | 2025-04-06 13:27 | P.PN_ITS ---
Documented by User: ISABEL Petersen STDNT 04/06/25 15:23 Subjective 2 Subjective: Fermin Patel, 84M, 24hours in ICU for recovery post cardiac arrest. He has had periodic blood pressure swings overnight with both hypotensive and hypertensive readings. His family at bedside has noticed occasional myoclonic jerks that are spontaneous and short-lived. He has some opening of the eyes that do not seem purposeful. There are some extremity movements, but it is unclear whether it is deliberate. Vitals/I&O/Wt Last Vital Signs Temp 99.5 F 04/06/25 08:00 Pulse 67 04/06/25 12:00 Resp 16 04/06/25 12:00 BP 136/62 04/06/25 12:00 Pulse Ox 100 04/06/25 12:00 O2 Del Method Mechanical Ventilation 04/06/25 12:00 O2 Flow Rate 30 04/05/25 15:30 FiO2 30 04/06/25 12:00 04/05/25 04/06/25 04/06/25 22:59 06:59 14:59 Intake Total 1098.754 / 1224.557 0 / 1224.557 148.530 / 148.530 Output Total 691 / 691 0 / 691 50 / 50 Balance 407.754 / 533.557 0 / 533.557 98.530 / 98.530 Weight last 48 hrs Weight 68.039 kg Weight 71.6 kg Weight 60.923 kg Weight 59.874 kg Weight 59.874 kg Physical Exam 2 Const: EXAM LIMITATIONS: other limitations (sedated due to mechanical ventilation) GENERAL APPEARANCE: frail appearing Resp: COMMON NORMALS: clear to auscultation bilaterally AUSCULTATION: clear to auscultation bilaterally Cardio: COMMON NORMALS: regular rate, regular rhythm, S1 normal heart sound present and S2 normal heart sound present RATE: regular rate RHYTHM: r egular rhythm HEART SOUNDS: S1 normal heart sound present and S2 normal heart sound present GI: COMMON NORMALS: Normal to inspection, nondistended, normoactive bowel sounds present and Soft to palpation PALPATION: Yes Soft to palpation Extremity: COMMON NORMALS: normal to inspection Urinary Catheter Management: Sepulveda: Cath Placed During This Visit: yes Reason for Continuing Indwelling Catheter: Accurate Measurement of Urinary Output in Critically Ill Patients Urinary Catheter Date of Insertion: 04/05/25 Urinary Catheter Time of Insertion: 07:58 Data 04/05/25 07:19 04/06/25 04:44 Micro: Microbiology 04/05/25 07:33 Gram Stain - Final Sputum - Endotracheal Tube Aspirate Sputum Culture - Preliminary Gram Negative Rods 04/05/25 07:15 Urine Culture - Preliminary Urine,Clean Catch 04/05/25 07:38 Blood Culture - Preliminary Blood NEGATIVE TO DATE 04/05/25 07:34 Blood Culture - Preliminary Blood NEGATIVE TO DATE A&P Assessment and plan 1. Cardiac arrest: 2. Congestive heart failure (CHF): 3. Aortic valve stenosis: 4. ESRD (end stage renal disease): 5. Subdural hematoma: Plan: Cardiac arrest with ROSC - continue ventilator support with targeted temperature control of 37.5C, treating fevers. - continue monitoring vitals and blood pressures Potential for anoxic brain injury pending assessment after 72 hours with cessation of sedatives. Myoclonic jerks, seizure - EEG evaluation unable to be performed due to staff availability. May perform as needed on Wednesday. Family is informed and aware of plan to monitor and reassess after 72 hours with limited resuscitation noted. - no CPR per family discussion. ESRD w/ hemodialysis - Nephrology will continue to do gentle HD with low BFR, avoiding hypotension, avoiding heparin continuing as supportive care. PDMP PDMP Reviewed: Not Reviewed Attestations 2 Medical Necessity Statement*: post cardiac arrest recovery monitoring Coding Level of Care Code Critical Care >/= 30 minutes Diagnoses Cardiac arrest I46.9 Congestive heart failure (CHF) I50.9 Aortic valve stenosis I35.0 ESRD (end stage renal disease) N18.6 Subdural hematoma S06.5XAA Documented by User: Dewey Vergara MD 04/06/25 16:29 Physical Exam 2 Urinary Catheter Management: Sepulveda: Cath Placed During This Visit: yes Data 04/05/25 07:19 04/06/25 04:44 A&P Assessment and plan 1. Cardiac arrest: 2. Congestive heart failure (CHF): 3. Aortic valve stenosis: 4. ESRD (end stage renal disease): 5. Subdural hematoma: Plan: Cardiac arrest with ROSC - continue ventilator support with targeted temperature control of 37.5C, treating fevers. - continue monitoring vitals and blood pressures Potential for anoxic brain injury pending assessment after 72 hours with cessation of sedatives. Myoclonic jerks, seizure - EEG evaluation unable to be performed due to staff availability. May perform as needed on Wednesday. Family is informed and aware of plan to monitor and reassess after 72 hours with limited resuscitation noted. - no CPR per family discussion. ESRD w/ hemodialysis - Nephrology will continue to do gentle HD with low BFR, avoiding hypotension, avoiding heparin continuing as supportive care. Patient seen and assessed independently, reviewed the above note and discussed with medical student. Agree with findings, as per discussion also with family, patient with some fluctuation of blood pressures overnight, propofol was initially held transiently and he was switched to Versed due to intermittent random myoclonic jerks noted overnight and this morning. 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 Will inquire about EEG, however, unavailable today. At 1 point with difficulty blood pressure reading, finding of suspected hypotension versus that was transiently held, Levophed initially started, however, hypertensive on evaluation. Versed restarted together with propofol. Has not required nicardipine. Loaded with Keppra 500 mg and continued twice daily. With improvement in symptoms. Echocardiogram reviewed, normal ejection fraction improved from prior. No regional wall motion abnormality. Otherwise remains afebrile since yesterday. Continuing on empiric antibiotics. CTA without PE, but with some consolidations noted, possible pneumonia. Thoracentesis planned and discussed with family tomorrow, on further consideration they decided to decline it. MRSA nasal swab on review noted positive, continue with empiric coverage for MRSA with vancomycin. Sputum culture has been obtained, noted growing gram-negative rods. Follow-up final culture. Possible UTI on presentation but urine culture unremarkable so far. Further discussion of goals of care, for now continued supportive measures with plans for reassessment after 72 hours of extent of anoxic/ischemic brain injury unless condition deteriorates. In case of lack of improvement family to further consider goals of care and likely may transition to comfort measures if no substantial recovery after 72 hours. In case of transition to comfort measures family state would consider taking him home for his final time if he were able to after transition. Continue target BP 120/80, target temp 97.7C. Elevate HOB. Discussed with nursing, RT. Nephrology following with plan for next dialysis tomorrow as per review of documentation. PDMP PDMP Reviewed: Not Reviewed Attestations 2 Medical Necessity Statement*: Continue admission for osseous management post cardiac arrest and recovery monitoring. Coding Level of Care Code Critical Care >/= 30 minutes Critical care time (in minutes): 45 The high probability of a clinically significant, sudden or life threatening deterioration, as referenced in this documentation, required my full and direct attention, intervention and personal management. The critical care time shown is in addition to time spent performing any reported separately billable procedures and includes the following: [x] Data and vital sign review and interpretation [x ] Patient assessment, examination and intervention [x] Medication orders and management [x] Patient/Family updates as able [x] Care Coordination and Documentation. Diagnoses Cardiac arrest I46.9 Congestive heart failure (CHF) I50.9 Aortic valve stenosis I35.0 ESRD (end stage renal disease) N18.6 Subdural hematoma S06.5XAA
--- NOTE | 2025-04-06 15:29 | PM.PN ---
Subjective Subjective: remains on vent on versed , propofol Medications: Reviewed: Yes Vitals/I&O/Wt Last Vital Signs Temp 99.5 F 04/06/25 08:00 Pulse 67 04/06/25 12:00 Resp 14 04/06/25 14:43 BP 136/62 04/06/25 12:00 Pulse Ox 100 04/06/25 14:43 O2 Del Method Mechanical Ventilation 04/06/25 12:00 O2 Flow Rate 30 04/05/25 15:30 FiO2 30 04/06/25 14:43 04/06/25 04/06/25 04/06/25 06:59 14:59 22:59 Intake Total 0 / 1224.557 148.530 / 148.530 Output Total 0 / 691 50 / 50 Balance 0 / 533.557 98.530 / 98.530 Weight last 48 hrs Weight 68.039 kg Weight 71.6 kg Weight 60.923 kg Weight 59.874 kg Weight 59.874 kg Physical Exam Narrative: Intubated No distress Urinary Catheter Management: Sepulveda: Cath Placed During This Visit: yes Reason for Continuing Indwelling Catheter: Accurate Measurement of Urinary Output in Critically Ill Patients Urinary Catheter Date of Insertion: 04/05/25 Urinary Catheter Time of Insertion: 07:58 Data 04/05/25 07:19 04/06/25 04:44 Micro: Microbiology 04/05/25 07:33 Gram Stain - Final Sputum - Endotracheal Tube Aspirate Sputum Culture - Preliminary Gram Negative Rods 04/05/25 07:15 Urine Culture - Preliminary Urine,Clean Catch 04/05/25 07:38 Blood Culture - Preliminary Blood NEGATIVE TO DATE 04/05/25 07:34 Blood Culture - Preliminary Blood NEGATIVE TO DATE A&P Assessment and plan 1. End stage renal disease on dialysis: 1. End-stage renal disease: On TTS schedule as outpatient, patient now status post cardiac arrest and has subdural hematoma. s/p HD yesterday with low BFR, avoid hypotension, avoid heparin, next hD tomorrow 2. Acute respiratory failure, intubated 3. Subdural hematoma 4. History of aortic stenosis 5. Hypertension Discussed with hospitalist. Overall poor prognosis due to multiple comorbidities. Plan to continue supportive care and monitor. PDMP PDMP Reviewed: Not Reviewed Attestations Medical Necessity Statement*: [facility] Coding Level of Care Code Acute Code for Chg Fwd Diagnoses End stage renal disease on dialysis N18.6; Z99.2
[2025-04-06] MEDS: propofol 1,000 MG/100 ML INJ 8.98 MG IV (19:08)
[2025-04-06] MEDS: midazolam hcl 100 MG/100 ML BAG IV (19:08)
--- NOTE | 2025-04-06 19:19 | PC.NURSE ---
Shift note -RT in room to suction and adjust vent/airway. Family out to desk after this, patient with episode of airway compromise due to air leak- RT called to assist this nurse and charge nurse attempts to reduce air leak. Patient noted to have rhythmic movement of left face/jaw and bilateral hands. During this episode blood pressure could not be obtained by auto cuff. No radial pulse palpable, faint femoral pulse noted. Dr. Vergara called, new orders for keppra and levophed obtained. Airway issues resolved, as levophed started. Pulse improved. Radial pulse palpable after airway improved and levophed started. Levophed turned off within 10 minutes. Later in shift family decided not to proceed with thoracentesis.
[2025-04-06] MEDS: nicardipine 20 MG/200 ML PREMIX 25 MG IV (23:07)
[2025-04-07] VITALS (126 sets, daily range): BP systolic 71–190; BP diastolic 44–97; PULSE 67–90; RESP 14–29; TEMP 37.1–38.1; O2SAT 98–100
[2025-04-07] MEDS: chlorhexidine gluconate 4% Btl 118 mL 1 APPLIC TOPICAL (00:15)
[2025-04-07 05:47] LABS: Alanine Aminotransferase 25 U/L (0-41); Albumin Level 2.8 g/dL (3.5-5.2); Alkaline Phosphatase 104 U/L (40-130); Anion Gap 20.4 (5-19); Aspartate Amino Transferase 53 U/L (0-40); Blood Urea Nitrogen 38 mg/dL (8-23); Calcium 8.2 mg/dL (8.5-10.5); Carbon Dioxide 24 mmol/L (22-29); Chloride 100 mmol/L (98-107); Creatinine Clr Calc Pharmacy 9.7357; Globulin 2.3 g/dL (1.3-4.6); Glucose 70 mg/dL (65-115); Osmolality Calculated 297 mOsm/kg (285-295); Potassium 4.4 mmol/L (3.5-5.1); Sodium 140 mmol/L (136-145); Total Protein 5.1 g/dL (6.6-8.7)
[2025-04-07] MEDS: propofol 1,000 MG/100 ML INJ 8.98 MG IV (06:04)
[2025-04-07] MEDS: levETIRAcetam 500 MG/100 ML PREMIX 400 MG IV ×2 (12:24→21:07)
[2025-04-07] MEDS: nicardipine 20 MG/200 ML PREMIX 50 MG IV ×2 (12:26→23:42)
[2025-04-07] MEDS: pantoprazole 40 mg SDV IVP (13:15)
[2025-04-07] MEDS: cefTRIAXone 1,000 mg SDV 1000 MG IVP (13:15)
--- NOTE | 2025-04-07 14:06 | PC.HD ---
Patient tolerated dialysis until approximately 1120, when his BPs dropped significantly, down to 71/44. Primary RN Christin turned off propofol, with no change in BPs. MAPs were <65. Per Dr. Rebollar, treatment was terminated approximately 40 minutes early. After cessation of dialysis and blood return to the patient, his BP recovered up to 162/68. Net fluid removal was 1054 (goal of 2.5L not met).
--- NOTE | 2025-04-07 15:37 | P.PN_ITS ---
Subjective 2 Subjective: remains on vent for airway protection on pressure support and driving the vent. Attention with dialysis so propofol and Versed were stopped. I am told he was on propofol 25 mg/h and Versed 5 mg an hour through yesterday. Patient is accompanied by multiple family members including his son Tae They are asking about whether neurologist available sooner than Wednesday. We discussed that patient is not brain- he is driving the vent but he has no higher function at this time such as protecting against pain, normal eye movements, movements of his arms or legs. Patient not able to eat or drink on his own. Patient has subarachnoid bleed right parietal temporal on 02/22/2025. He now has subdural hematoma left frontal 04/05/2025 Medications: Reviewed: Yes Vitals/I&O/Wt Last Vital Signs Temp 98.8 F 04/07/25 14:04 Pulse 74 04/07/25 14:04 Resp 17 04/07/25 14:39 BP 162/68 04/07/25 14:04 Pulse Ox 100 04/07/25 14:39 O2 Del Method Mechanical Ventilation 04/07/25 10:00 O2 Flow Rate 30 04/05/25 15:30 FiO2 30 04/07/25 14:39 04/07/25 04/07/25 04/07/25 06:59 14:59 22:59 Intake Total 143.181 / 763.829 789.304 / 789.304 Output Total 50 / 100 1554 / 1554 Balance 93.181 / 663.829 -764.696 / -764.696 Weight last 48 hrs Weight 73.2 kg Weight 68.402 kg Weight 68.039 kg Weight 71.6 kg Physical Exam 2 Narrative: General Well-developed male in no acute cardiopulmonary distress on ventilator. Pupils are equally round and reactive light accommodation oculocephalic reflex is abnormal. Arms and legs are flaccid he does not withdraw to pain from sternal rub, periorbital pain or nailbed pressure. Patient has no purposeful movements. CV regular rate and rhythm Lungs clear to auscultation bilaterally abdomen diminished bowel tones soft nontender Calves no tenderness cords pretibial edema Urinary Catheter Management: Sepulveda: Cath Placed During This Visit: yes Reason for Continuing Indwelling Catheter: Accurate Measurement of Urinary Output in Critically Ill Patients Urinary Catheter Date of Insertion: 04/05/25 Urinary Catheter Time of Insertion: 07:58 Data 04/05/25 07:19 04/07/25 05:10 Micro: Microbiology 04/05/25 07:33 Gram Stain - Final Sputum - Endotracheal Tube Aspirate Sputum Culture - Final Klebsiella pneumoniae 04/05/25 07:15 Urine Culture - Final Urine,Clean Catch A&P Assessment and plan 1. Subdural hematoma: Patient arrested after complaints of being unable to breathe in the morning. Subdural may have been the precipitating factor. They denied that the patient suffered any more brain injury on that day but he did fall on 02/17/2025 suffering the scalp hematoma but no subdural on that date. Will obtain images from [place] for comparison I updated the patient's son and daughter Kristina and Tae at bedside. 2. Cardiac arrest: Patient with moderate left frontal subdural hematoma that which may have caused his cardiac arrest. He is already disadvantaged or more susceptible due to being a dialysis patient 3. Congestive heart failure (CHF): Chest x-ray shows congestive heart failure. Hypertension now improved and on lowest dose of nicardipine 4. Aortic valve stenosis: Unchanged 5. ESRD (end stage renal disease): Unchanged and had Plan: Patient changed to DNR limited interventions. PDMP PDMP Reviewed: Not Reviewed Attestations 2 Medical Necessity Statement*: Patient remains in hospital overnight for clearance of sedation. He had's dialysis today if he does not show any purposeful movement plan is for extubation to comfort care tomorrow Coding Level of Care Code Critical Care >/= 30 minutes Diagnoses Subdural hematoma S06.5XAA Cardiac arrest I46.9 Congestive heart failure (CHF) I50.9 Aortic valve stenosis I35.0 ESRD (end stage renal disease) N18.6 Time Spent (min) 45
--- NOTE | 2025-04-07 16:22 | PC.NURSE ---
Addendum entered by DONALD Ruff RN 04/07/25 16:23: witness waste Original Note: Wasted remaining diprovan/see MAR and wasted 18 ml of versed.
--- NOTE | 2025-04-07 19:04 | PC.NURSE ---
Shift note- patient with low blood pressure during last hour of dialysis, medications versed and propofol stopped at that time. Blood returned by dialysis nurse early. Improved bp after this, drips remained off due to plan of weening / discontinuing to evaluate mental status. Plan to continue monitoring and remain off sedation for night, to revaluate mental status in am. Dr. Tolentino spoke with family - about serverity of illness/ code status and comfort care options available.
--- NOTE | 2025-04-07 19:10 | P.PN_ITS ---
Subjective 2 Subjective: on vent Medications: Reviewed: Yes Vitals/I&O/Wt Last Vital Signs Temp 100.4 F H 04/07/25 18:15 Pulse 84 04/07/25 18:15 Resp 14 04/07/25 17:45 BP 105/78 04/07/25 18:15 Pulse Ox 100 04/07/25 18:15 O2 Del Method Mechanical Ventilation 04/07/25 17:30 O2 Flow Rate 30 04/05/25 15:30 FiO2 30 04/07/25 17:30 04/07/25 04/07/25 04/07/25 06:59 14:59 22:59 Intake Total 143.181 / 763.829 867.637 / 867.637 250 / 1117.637 Output Total 50 / 100 1554 / 1554 25 / 1579 Balance 93.181 / 663.829 -686.363 / -686.363 225 / -461.363 Weight last 48 hrs Weight 73.2 kg Weight 68.402 kg Weight 68.039 kg Weight 71.6 kg Physical Exam 2 Narrative: Intubated No distress Urinary Catheter Management: Sepulveda: Cath Placed During This Visit: yes Reason for Continuing Indwelling Catheter: Accurate Measurement of Urinary Output in Critically Ill Patients Urinary Catheter Date of Insertion: 04/05/25 Urinary Catheter Time of Insertion: 07:58 Data 04/05/25 07:19 04/07/25 05:10 Micro: Microbiology 04/05/25 07:33 Gram Stain - Final Sputum - Endotracheal Tube Aspirate Sputum Culture - Final Klebsiella pneumoniae 04/05/25 07:15 Urine Culture - Final Urine,Clean Catch A&P Assessment and plan 1. End stage renal disease on dialysis: 1. End-stage renal disease: On TTS schedule as outpatient, patient now status post cardiac arrest and has subdural hematoma. s/p HD with low BFR, avoid hypotension, avoid heparin, next hD today 2. Acute respiratory failure, intubated 3. Subdural hematoma, intubated 4. History of aortic stenosis 5. Hypertension Discussed with hospitalist. Overall poor prognosis due to multiple comorbidities. Plan to continue supportive care and monitor. dw family @ bedside PDMP PDMP Reviewed: Not Reviewed Attestations 2 Medical Necessity Statement*: per blair Coding Level of Care Code Acute Code for Chg Fwd Diagnoses End stage renal disease on dialysis N18.6; Z99.2
--- NOTE | 2025-04-07 22:00 | PC.NURSE ---
Tube Feed Patient's blood glucose [address] Mcbride notified; order received to start Nepro tube feed at 30 ml/hr.
[2025-04-08] VITALS (44 sets, daily range): BP systolic 0–158; BP diastolic 0–75; PULSE 0–96; RESP 12–26; TEMP 37.4–37.7; O2SAT 0–100
[2025-04-08 05:29] LABS: Alanine Aminotransferase 21 U/L (0-41); Albumin Level 2.7 g/dL (3.5-5.2); Alkaline Phosphatase 101 U/L (40-130); Blood Urea Nitrogen 31 mg/dL (8-23); Calcium 8.2 mg/dL (8.5-10.5); Carbon Dioxide 23 mmol/L (22-29); Chloride 101 mmol/L (98-107); Creatinine Clr Calc Pharmacy 11.5867; Globulin 3.2 g/dL (1.3-4.6); Glucose 106 mg/dL (65-115); Osmolality Calculated 299 mOsm/kg (285-295); Sodium 141 mmol/L (136-145); Total Protein 5.9 g/dL (6.6-8.7)
[2025-04-08 05:49] LABS: Anion Gap 22.0 (5-19); Aspartate Amino Transferase 53 U/L (0-40); Potassium 5.0 mmol/L (3.5-5.1)
[2025-04-08] MEDS: nicardipine 20 MG/200 ML PREMIX 25 MG IV (08:20)
[2025-04-08] MEDS: levETIRAcetam 500 MG/100 ML PREMIX 400 MG IV (08:20)
--- NOTE | 2025-04-08 11:26 | P.PN_ITS ---
Subjective 2 Subjective: 84-year-old male with anoxic b rain injury remains on vent for airway protection on pressure support and driving the vent. Attention with dialysis so propofol and Versed were stopped. Patient has subarachnoid bleed right parietal temporal on 02/22/2025. He now has subdural hematoma left frontal 04/05/2025 He has been off Versed and propofol for 18 hours. Patient still no response to verbal and noxious or painful stimuli. Family request comfort care and include Natividad middle child Kristina oldest daughter and Tae son's youngest. There is 1 other daughter that was here yesterday actually the eldest and she went to catch a flight home this morning. Medications: Reviewed: Yes Vitals/I&O/Wt Last Vital Signs Temp 99.3 F 04/08/25 08:00 Pulse 73 04/08/25 08:00 Resp 22 H 04/08/25 10:55 BP 131/61 04/08/25 08:00 Pulse Ox 95 04/08/25 10:55 O2 Del Method Mechanical Ventilation 04/08/25 08:00 O2 Flow Rate 30 04/05/25 15:30 FiO2 30 04/08/25 10:55 04/07/25 04/08/25 04/08/25 22:59 06:59 14:59 Intake Total 371.667 / 1239.304 665.667 / 1904.971 158.75 / 158.75 Output Total 25 / 1579 75 / 1654 Balance 346.667 / -339.696 590.667 / 250.971 158.75 / 158.75 Weight last 48 hrs Weight 61.462 kg Weight 73.2 kg Weight 68.402 kg Physical Exam 2 Narrative: General Well-developed male in no acute cardiopulmonary distress on ventilator. Pupils are equally round and barely reactive to light oculocephalic reflex is abnormal. Arms and legs are flaccid he does not withdraw to pain from sternal rub, periorbital pain or nailbed pressure. Patient has no purposeful movements. CV regular rate and rhythm Lungs clear to auscultation bilaterally abdomen diminished bowel tones soft nontender Calves no tenderness cords pretibial edema Urinary Catheter Management: Sepulveda: Cath Placed During This Visit: yes Reason for Continuing Indwelling Catheter: Accurate Measurement of Urinary Output in Critically Ill Patients Urinary Catheter Date of Insertion: 04/05/25 Urinary Catheter Time of Insertion: 07:58 Data 04/05/25 07:19 04/08/25 04:56 Micro: Microbiology 04/05/25 07:33 Gram Stain - Final Sputum - Endotracheal Tube Aspirate Sputum Culture - Final Klebsiella pneumoniae 04/05/25 07:15 Urine Culture - Final Urine,Clean Catch A&P Assessment and plan 1. Anoxic brain injury: Withdrawal to comfort care. Extubated to 2 L per nasal cannula for comfort 2. Subdural hematoma: Patient arrested after complaints of being unable to breathe in the morning. Subdural may have been the precipitating factor. They denied that the patient suffered any more brain injury on that day but he did fall on 02/17/2025 suffering the scalp hematoma but no subdural on that date. Will obtain images from [place] for comparison I updated the patient's son and daughter Kristina and Tae at bedside. And Natividad daughter Patient with moderate left frontal subdural hematoma that which may have caused his cardiac arrest. He is already disadvantaged or more susceptible due to being a dialysis patient Proceed with comfort care 3. Cardiac arrest: Patient with moderate left frontal subdural hematoma that which may have caused his cardiac arrest. He is already disadvantaged or more susceptible due to being a dialysis patient 4. Congestive heart failure (CHF): Chest x-ray shows congestive heart failure. Hypertension now improved and on lowest dose of nicardipine 5. ESRD (end stage renal disease): Stop dialysis 6. Aortic valve stenosis: Unchanged Plan: Patient changed to DNR limited interventions. PDMP PDMP Reviewed: Not Reviewed Attestations 2 Medical Necessity Statement*: Patient is switched to comfort care and expected to pass within the next 24 hours Coding Level of Care Code 01079 Diagnoses Anoxic brain injury G93.1 Subdural hematoma S06.5XAA Cardiac arrest I46.9 Congestive heart failure (CHF) I50.9 ESRD (end stage renal disease) N18.6 Aortic valve stenosis I35.0 Time Spent (min) 35
--- NOTE | 2025-04-08 12:15 | PC.NURSE ---
Extubated terminally to 2l nc. family at bedside.
[2025-04-08] MEDS: morphine 4 mg/mL SDV 1 mL IVP (12:17)
--- NOTE | 2025-04-08 13:25 | PC.NURSE ---
Time of 1321 Pt assessment no heart tones or respirations noted. Family at bedside. Time of 1321. Dr. Tolentino notified.
--- NOTE | 2025-04-08 14:50 | PC.NURSE ---
pt sent to [facility] family remained at bedside until [facility] arrival
--- NOTE | 2025-04-08 14:53 | PM.DDS ---
Discharge Providers DDS Date of Admission: 04/05/25 11:48 Date Summary Completed: 04/08/25 Attending Provider at Admission: Dewey Vergara Time of : 13:20 Attending Provider at Discharge: Niles Tolentino MD Consults: Rosalba Rebollar MD nephrology Primary Care Provider: MD NALLELY Fontenot Diagnoses Hospital Diagnoses 1. Anoxic brain injury: Details from hospital stay: Patient with no higher brain function. He was driving the vent but no meaningful movements and no response to pain or noxious stimuli. We elected for comfort care today and he passed peacefully at 1320 p.m. 2. Subdural hematoma: Details from hospital stay: Left frontal subdural new this admission. Family elected for no transfer for surgery. Medical management with ventilatory support but patient did not improve and care was withdrawn today 3. Cardiac arrest: Details from hospital stay: As above attributable to subdural hematoma 4. Congestive heart failure (CHF): Details from hospital stay: Volume overloaded at the time of admission may have contributed to his cardiac arrest 5. ESRD (end stage renal disease): Details from hospital stay: Patient received dialysis here but that was discontinued once his condition from anoxic brain injury was not improving 6. Aortic valve stenosis: Details from hospital stay: Chronic Reason for Visit Reason for Visit cardiac arrest Summary Date and Time of Date of : 04/08/25 Time of : 13:20 Summary Summary: Patient was admitted to the ICU on ventilatory support after family declined to transfer him for subdural hematoma evacuation at an outside facility. The patient was not doing well and his anoxic brain injury appeared to be severe. This was confirmed as he did not improve after 3 days in the hospital, dialysis and then no sedation for greater than 18 hours. Family elected for comfort care. He was extubated to comfort care and today 01/25/2020 Patient was on monitor and flatline and pronounced by nurse DONALD when patient had no pulse respirations heart sounds or electrical activity in the heart Additional Data Confirmation of as documented by pronouncing clinician: no pulse, no respirations, no heart sounds and pupils fixed and dilated Advance directives?: Yes Discharge Plan Discharge Patient Disposition: Home Condition: Stable Prescriptions: No Action allopurinol 100 mg tablet 100 mg PO QPM calcium acetate 667 mg tablet 667 mg PO BID trazodone 100 mg tablet 50 mg PO BEDTIME carvedilol 25 mg Tablet 25 mg PO BID nifedipine 60 mg Tablet Extended Release 24hr 60 mg PO QAM atorvastatin 40 mg tablet 40 mg PO QPM guaifenesin [Mucinex] 600 mg Tablet Extended Release 12hr 600 mg PO BID PRN (Reason: Congestion) levothyroxine 25 mcg Tablet 25 mcg PO QAM Qty: 30 0RF sacubitril-valsartan [Entresto] 24-26 mg Tablet 1 tab PO BID Qty: 60 0RF ipratropium-albuterol 0.5 mg-3 mg(2.5 mg base)/3 mL solution for nebulization 3 ml INHALATION .Q4-6H PRN (Reason: Shortness Of Breath) Discharge Order = DC NOW: Discharge Order (Routine); Ordered 04/08/25 Ordered By: Niles Tolentino Referrals: Humera Mayen MD [Primary Care Provider, [facility]] DS Attestations Time Spent in /Discharge Care*: greater than 30 min Quality - AMI: AMI present?: No Quality - Stroke: CVA present?: No Symptom Onset Unknown: No Quality - VTE: VTE present?: No Deep Vein Thrombosis/Pulmonary Embolism Present on Admission: No Coding Level of Care Code 45434 Diagnoses Anoxic brain injury G93.1 Subdural hematoma S06.5XAA Cardiac arrest I46.9 Congestive heart failure (CHF) I50.9 ESRD (end stage renal disease) N18.6 Aortic valve stenosis I35.0 Time Spent (min) 40 Comment Including an earlier visit with family
--- NOTE | 2025-04-08 16:07 | PC.NURSE ---
post mortem care provided 1400. family remains at bedside.
== END 2025-04-08 13:20 | disposition expired | DRG 64 ==
LOC: ER 08:15 → ICU 11:48
PROVIDERS: Hospitalist; Admitting Provider Internal Medicine; Emergency Provider Family Medicine; PCP Family Medicine; Visit Provider Internal Medicine
DX: I62.00 Nontraumatic subdural hemorrhage, unspecified (principal); J96.01 Acute respiratory failure with hypoxia; N18.6 End stage renal disease; I13.2 Hypertensive heart and chronic kidney disease with heart failure and with stage 5 chronic kidney disease, or end stage renal disease; E87.29 Other acidosis; Z66 Do not resuscitate; Z51.5 Encounter for palliative care; I46.8 Cardiac arrest due to other underlying condition; I35.0 Nonrheumatic aortic (valve) stenosis; I50.9 Heart failure, unspecified; G25.3 Myoclonus; I95.9 Hypotension, unspecified; I25.10 Atherosclerotic heart disease of native coronary artery without angina pectoris; I25.2 Old myocardial infarction; E78.5 Hyperlipidemia, unspecified; M1A.9XX0 Chronic gout, unspecified, without tophus (tophi); E55.9 Vitamin D deficiency, unspecified; Z79.899 Other long term (current) drug therapy; Z79.890 Hormone replacement therapy; Z86.73 Personal history of transient ischemic attack (TIA), and cerebral infarction without residual deficits; Z87.891 Personal history of nicotine dependence; Z11.52 Encounter for screening for COVID-19; Z99.2 Dependence on renal dialysis; Z99.81 Dependence on supplemental oxygen
CPT/HCPCS: 36415; 36416; 36573; 36592; 36600; 51702; 70450; 71045; 71275; 74176; 80048; 80051; 80053; 80202; 81001; 82330; 82805; 82962; 83615; 83690; 83735; 84100; 84443; 84484; 85025; 86706; 86803; 87040; 87070; 87077; 87086; 87186; 87205; 87340; 87637; 90935; 93005; 93308; 93325; 94002; 94003; 94640; 94664; 94799; 96365; 96366; 96367; 96375; 99291; J0360; J0456; J0612; J0696; J1953; J2250; J2270; J2404; J2470; J2704; J3373; J3490; J7050; J7613; J9999